=== PATIENT | male | born 1950 | race Caucasian/White ===

== ENCOUNTER → 2018-04-27 11:45 | Outpatient (CLI) | payer MEDICARE, SELFPAY ==
--- NOTE | 2018-04-27 12:15 | ECHOD_ITS ---
Reason For Study: CAD/ASHD Procedure This was a 2D Doppler, Color Flow transthoracic echocardiogram. The exam was of fair technical quality due to body habitus. Exam performed in department. Left Ventricle Normal LV size. Left ventricular systolic function is normal. The estimated ejection fraction is 60 %. Diastolic function is indeterminate. No regional wall motion abnormalities noted. Right Ventricle Normal RV size. Normal systolic function. Atria Normal left atrium. Normal right atrium. No doppler evidence for ASD. Mitral Valve There is no mitral annular calcification. Normal mitral valve. Mild (1+) mitral valve insufficiency. Tricuspid Valve Normal tricuspid valve. Trivial tricuspid valve insufficiency. Aortic Valve Trisinus/trileaflet aortic valve. Mild diffuse aortic valve thickening. Mild focal aortic valve calcification. Aortic sclerosis, no stenosis. Pulmonic Valve The pulmonic valve is not well visualized. Trivial pulmonic valve insufficiency. Great Vessels Normal sized aortic root. Calcified aortic root. Pericardium/Pleural No pericardial effusion. MMode/2D Measurements & Calculations LVIDd: 5.1 cm IVSd: 1.1 cm LVOT diam: 2.0 cm LVIDs: 2.9 cm LVPWd: 1.1 cm LVOT area: 3.3 cm2 FS: 42.4 % Ao root diam: 3.2 cm LAV(MOD-bp): 54.4 ml LVAd ap4: 34.8 cm2 LA dimension: 4.2 cm LAV(MOD-bp) Indexed: 25.1 ml/m2 EDV(MOD-sp4): 123.5 ml LAV(MOD-sp2): 36.3 ml EDV(sp4-el): 123.8 ml LAV(MOD-sp4): 74.3 ml LVAs ap4: 16.3 cm2 ESV(MOD-sp4): 39.6 ml ESV(sp4-el): 37.3 ml EF(MOD-sp4): 67.9 % EF(sp4-el): 69.8 % SV(MOD-sp4): 83.9 ml SV(sp4-el): 86.5 ml LA A4 area: 23.5 cm2 RA A4 area: 20.2 cm2 Time Measurements MV dec time: 0.19 sec Doppler Measurements & Calculations MV E max trip: 103.8 cm/sec Lat Peak E' Trip: 10.0 cm/sec Med Peak E' Trip: 7.6 cm/sec MV A max trip: 88.4 cm/sec E/E' lat: 10.4 E/E' med: 13.7 MV E/A: 1.2 MV V2 max: 112.7 cm/sec MV P1/2t max trip: 111.7 cm/sec Ao V2 max: 187.0 cm/sec MV max P.1 mmHg MV P1/2t: 107.6 msec Ao max P.0 mmHg MV V2 mean: 64.6 cm/sec MV dec slope: 304.0 cm/sec2 Ao V2 mean: 123.2 cm/sec MV mean P.9 mmHg MVA(P1/2t): 2.0 cm2 Ao mean P.1 mmHg MV V2 VTI: 39.5 cm Ao V2 VTI: 41.5 cm MVA(VTI): 2.4 cm2 PEG(I,D): 2.3 cm2 PEG(V,D): 2.3 cm2 LV V1 max: 131.6 cm/sec SV(LVOT): 95.4 ml PA V2 max: 132.9 cm/sec LV V1 max P.9 mmHg LV V1 mean P.7 mmHg LV V1 mean: 89.5 cm/sec LV V1 VTI: 29.2 cm Interpretation Summary Left ventricular systolic function is normal. The estimated ejection fraction is 60 %. Mild (1+) mitral valve insufficiency. Aortic sclerosis, no stenosis. Trivial pulmonic valve insufficiency. Calcified aortic root. Diastolic function is indeterminate. Ordering Physician: Chad Reese Referring Physician: Chad Reese Performed By: Brian Darnell RCS
--- NOTE | 2018-04-27 12:15 | RAD_ITS ---
STUDY: X-RAY CHEST REASON FOR EXAM: Male, 68 years old. Shortness of breath, dyspnea. Pre-heart cath. TECHNIQUE: PA and lateral views of the chest. COMPARISON: Portable AP upright chest x-ray June 24, 2015. FINDINGS: The lungs are clear and deeply expanded. There is no demonstrated pleural abnormality. Normal size heart. Normal mediastinum and darryl. Normal visualized pulmonary arteries. Normal visualized aortic arch and descending thoracic aorta. There are stable multilevel degenerative changes of the visualized thoracic spine. Borderline anterior wedging of the T11 and T12 vertebrae. There is partial ossification of the right coracoclavicular ligament, consistent with old healed injury. There is no demonstrated abnormality of the visualized soft tissue structures of the upper abdomen. RAD/Chest PA and Lateral IMPRESSION: No acute cardiopulmonary disease. Electronically Signed: Rubio Anderson MD at 19:54 EDT , Service support ,
[2018-04-27 12:39] LABS: Absolute Lymphocyte Count 1.39 X10^3/ul (0.83-4.51); Absolute Neutrophil Count 4.8 X10^3/uL (2.0-7.7); Basophil# 0.02 X10^3/uL; Basophil% 0.3 % (0-1); Eosinophil# 0.06 X10^3/uL; Eosinophils% 0.9 % (0-5); Hematocrit 33.8 % (40-54); Hemoglobin 11.4 g/dl (13.0-16.5); Lymphocyte # 1.39 X10^3/ul (4.0); Lymphocyte % 20.8 % (19-41); Mean Corp Hgb Conc 33.7 g/gl (32-36); Mean Corpuscular Hgb 30.6 pg (27.0-32.0); Mean Corpuscular Volume 90.9 fL (80-94); Monocyte# 0.36 X10^3/uL; Monocyte% 5.4 % (0-10); Neutrophil # 4.84 X10^3/uL (2.7-7.7); Neutrophil % 72.3 % (47-70); Platelet Count 246 K/mm3 (150-450); RBC Distribution Width CV 14.7 % (11.6-14.6); RBC Distribution Width SD 47.2 fl (35.1-43.9); Red Blood Count 3.72 M/mm3 (4.6-6.2); White Blood Count 6.7 K/mm3 (4.4-11.0)
[2018-04-27 12:42] LABS: POSITIVE COUNT NO; POSITIVE DIFFERENTIAL NO; POSITIVE MORPHOLOGY NO
[2018-04-27 12:45] LABS: Prothrombin Time (Protime)PT. 13.5 SECONDS (11.7-14.9)
[2018-04-27 12:53] LABS: Anion Gap 9 (5-15); BUN 11 mg/dL (7-18); BUN/Creat Ratio 11.2 RATIO (10-20); Calcium,Total 8.8 mg/dL (8.5-10.1); Chloride 92 mmol/L (98-107); Creatinine, Serum 0.98 mg/dL (0.70-1.30); EST Glomerular Filtration Rate 81 mL/min (>60); Est Glom Filt Rate - Afr Amer 99 mL/min (>60); Glucose 196 mg/dL (74-106); Potassium 3.3 mmol/L (3.5-5.1); Sodium Level 129 mmol/L (136-145)
== END ==
PROVIDERS: Referring Provider Internal Medicine Cardiovascular Disease; Visit Provider Internal Medicine Cardiovascular Disease
DX: I25.10 Atherosclerotic heart disease of native coronary artery without angina pectoris (principal); E78.5 Hyperlipidemia, unspecified; I10 Essential (primary) hypertension
CPT/HCPCS: 36415; 71046; 80048; 85025; 85610; 93306

== ENCOUNTER 2018-05-01 09:42 | Day surgery (SDC) | payer MEDICARE, SELFPAY ==
[2018-04-30 09:06] VITALS: BMI 36.8
[2018-05-01] VITALS (30 sets, daily range): BP systolic 125–186; BP diastolic 64–85; PULSE 59–78; RESP 10–77; TEMP 37.3; O2SAT 98–100; BMI 36.8
--- NOTE | 2018-05-01 13:30 | EKG12_ITS ---
Test Reason : POST STENT Blood Pressure : / mmHG Vent. Rate : 057 BPM Atrial Rate : 057 BPM P-R Int : 176 ms QRS Dur : 100 ms QT Int : 454 ms P-R-T Axes : 045 063 056 degrees QTc Int : 441 ms Sinus bradycardia Confirmed by WINTER SIMMS, CHAD ([id number]), senior editor JAYLYN CHENG ([id number]) on 05/06/2018 2:19:42 PM Referred By: Chad Max Confirmed By:CHAD MAX MD
--- NOTE | 2018-05-01 14:17 | CRPH1.INSTRU ---
General Education CAD and cardiac anatomy and function:: Patient communicates acknowledgment Explanation of diagnoses and procedures:: Patient communicates acknowledgment Sign/Symptoms of OK:: Patient communicates acknowledgment Antiplatelet therapy: Patient communicates acknowledgment Proper use of NTG-SL: Not instructed Emergency procedures and activation of EMS: Patient communicates acknowledgment Compliance of all prescribed medications: Patient communicates acknowledgment Smoking Nicotine/Smoking Response Code:: Patient communicates acknowledgment Dyslipidemia Dyslipidemia Response Code:: Patient communicates acknowledgment Overweight/Obesity Patient Overweight/Obesity Risk Factors Are:: BMI Normal [24-29 & > 65 years old] Recommendations Include:: Weight loss of 5-10%, Reduced calorie diet, Exercise 5-7 times/week Overweight/Obesity:: Patient communicates acknowledgment Hypertension Recommendations Include:: Maintain BP <130/85, BP <130/80 if diabetic, DASH dietary guidelines, Decrease/maintain normal body weight, Moderation of ETOH Hypertension:: Patient communicates acknowledgment Heart Disease Heart Disease Response Code:: Patient communicates acknowledgment Diabetes Patient Diabetes Risk Factors Are:: Elevated blood sugars Recommendations Include:: Maintain fasting blood sugars 70-110 md/dL, Maintain HgbA1c of 6% or less, Monitor blood sugar as prescribed, Diabetic dietary guidelines, Decrease/maintain body weight Diabetes:: Patient communicates acknowledgment Metabolic Syndrome Metabolic Syndrome Response Code:: Patient communicates acknowledgment Sedentary Sedentary Response Code:: Patient communicates acknowledgment Stress Stress Response Code:: Patient communicates acknowledgment
--- NOTE | 2018-05-01 14:19 | CRPHASE1 ---
Patient Data/Charges Supervisor Claims:: Chad Reese Surgeon:: Renu Chaudhry Refer Phase II:: Yes Phase II Referral:: [facility] Risk Factors/Lifestyle Hx Obesity: Yes Height: 1.7 m Weight:: 106.594 kg BMI: 36.8 Family History: Family History (Last Reviewed 04/16/18 @ 13:13 by Lolly Matt) Father COPD (chronic obstructive pulmonary disease) Heart disease Mother CAD (coronary artery disease) Myocardial infarction CVA (cerebral vascular accident) Diabetes Brother CAD (coronary artery disease) Pacemaker Diabetes History of coronary artery bypass surgery Brother Brain aneurysm Phase I Education Given On:: [place], Nutrition, Antiplatelet medication, CHF, Smoking cessation, Diabetes - Type I, Diabetes - Type II Knowledge of Condition:: Yes Medical/Surgical History COPD:: Yes Diabetes Type II:: Yes Hypertension:: Yes Dyslipidemia:: Yes PTCA:: Yes Discharge/Home/Social Eval Discharge Disposition: Home
--- NOTE | 2018-05-01 14:22 | CRPHASE1_ITS ---
Patient Data/Charges Quality Systems Technician:: Chad Reese Surgeon:: Renu Chaudhry Refer Phase II:: Yes Phase II Referral:: [facility] Risk Factors/Lifestyle Hx Obesity: Yes Height: 1.7 m Weight:: 106.594 kg BMI: 36.8 Family History: Family History (Last Reviewed 04/16/18 @ 13:13 by Lolly Matt) Father COPD (chronic obstructive pulmonary disease) Heart disease Mother CAD (coronary artery disease) Myocardial infarction CVA (cerebral vascular accident) Diabetes Brother CAD (coronary artery disease) Pacemaker Diabetes History of coronary artery bypass surgery Brother Brain aneurysm Phase I Education Given On:: [place], Nutrition, Antiplatelet medication, CHF, Smoking cessation, Diabetes - Type I, Diabetes - Type II Knowledge of Condition:: Yes Medical/Surgical History COPD:: Yes Diabetes Type II:: Yes Hypertension:: Yes Dyslipidemia:: Yes PTCA:: Yes Discharge/Home/Social Eval Discharge Disposition: Home
[2018-05-01 14:40] LABS: Base Excess 0 mmol/L (-2 to +2); Bicarbonate 24.6 mmol/L (22-26); Blood Gas Specimen Type ART; PO2 71 mmHG (75-100); SO2 95 % (95-99); Total Carbon Dioxide 26 mmol/L; pH 7.44 (7.35-7.45)
[2018-05-01 14:40] LABS: Blood Gas Specimen Type VEN; VBG BASE EXCESS 1 mmol/L (-1.0-3.5); VBG Bicarbonate 25 mmol/L (22-26); VBG Oxygen Content 27 mmol/L (23-33); VBG PO2 38 mmHg (25-40); VBG SO2 73 % (50-70); VBG pCO2 39.1 mmHg (41-51); VBG pH 7.42 (7.32-7.42)
[2018-05-01 14:40] LABS: Blood Gas Specimen Type VEN; VBG BASE EXCESS 1 mmol/L (-1.0-3.5); VBG Bicarbonate 26 mmol/L (22-26); VBG Oxygen Content 27 mmol/L (23-33); VBG PO2 37 mmHg (25-40); VBG SO2 71 % (50-70); VBG pCO2 41.4 mmHg (41-51); VBG pH 7.41 (7.32-7.42)
[2018-05-01 14:41] LABS: ACT Activated Clotting Time 252 sec (74-137)
[2018-05-01 14:41] LABS: Blood Gas Specimen Type VEN; VBG BASE EXCESS 1 mmol/L (-1.0-3.5); VBG Bicarbonate 26 mmol/L (22-26); VBG Oxygen Content 27 mmol/L (23-33); VBG PO2 38 mmHg (25-40); VBG SO2 72 % (50-70); VBG pCO2 41.4 mmHg (41-51)
[2018-05-01 14:41] LABS: ACT Activated Clotting Time 213 sec (74-137)
[2018-05-01 15:00] LABS: ACT Activated Clotting Time 153 sec (74-137)
[2018-05-01] MEDS: 0.9% Normal Saline 1,000 ML 100 ML IV (15:11)
--- NOTE | 2018-05-01 15:19 | CL.I_ITS ---
Patient Name: ESTEFANY PEPPER Study Date: 05/01/2018 Performing: Renu Albert MD Ht: 67 inches 170 cm : 1950 Wt: 236.2 lbs 107 kg Age: 68 Gender: male BSA: 2.17 PROCEDURE(S) PERFORMED [id number] W OR WO PTCA, SINGLE CORONARY ARTERY [id number], CORONARY OR GRAFT, INITIAL VESSEL CLINICAL PROFILE AND CO-MORBIDITIES Indications: Worsening Angina, Suspected CAD Heart Failure: None Stress/Imaging Stress/Image Study Performed: No Angina Classification Anginal Classification w/in 2 Weeks: CCS III CAD Presentations: Other: Dyspnea, angina equivalent class III Other: Worsening shortness of oleksandr th (angina pectoris equivalent) CONCLUSIONS Post-IVUS showed mild stent malapposition. Post dilated as noted above RECOMMENDATIONS ASA Indefinitley Plavix for at least 12 months Follow up with Dr. Reese DESCRIPTION OF PROCEDURE The patient arrived to the procedure lab. The risks and benefits of the procedure as well as a full d escription of our services here and current unavailability of surgical backup were fully explained to the patient and/or their significant other prior to the catheterization. The Timeout was completed, verifying the correct patient and procedure. The patient's procedural site was prepped and draped in the usual fashion. Local anesthetic was given subcutaneously to right groin region with Lidocaine 2% Using a modified Seldinger technique,arterial access was obtained via the right femoral artery, a 4Fr sheath was insertedVenous access was obtained via the right femoral vein, a 7Fr sheath was inserted. A 7Fr thermal dilution catheter was inserted and right heart pressures were recorded, it was then ad vanced to PA position for cardiac outputs. Thermal dilution cardiac outputs were then recorded. O2 sa turations were then obtained. The Thermal dilution catheter was then removed. Left Coronary Artery se lective angiography was performed in multiple views using a 4 Fr. JL5 catheter. Right Coronary Artery selective angiography was then performed in multiple views using a 4 Fr. JR4 catheter. Simultaneous pressures were then recorded. Left Ventriculography was performed in CHAPA projection using a 4 Fr. Pig tail catheter.The images were reviewed and options discussed. A decision was then made to proceed wit h an Intervention, IVUS or other adjunct procedure. Arterial sheath was exchanged for a 6 Fr Sheath. Angiogram performed pre balloon dilatation. jr 4 cor dis Guide catheter was inserted and engaged into the RCA. bmw Guide wire was advanced to the RCA. nenita rge 3.00 x 8 Balloon catheter was advanced across lesion in the right coronary, proximal. PTCA balloo n inflated at 14 atms for 23 secs. Angiogram performed post balloon dilatation. integrity resolute 3. 5 x 12 Drug Eluting stent was advanced across the lesion in the right coronary, proximal. Drug Elutin g stent was removed intact, failed to cross lesion resolute integrity 3.5 x 12 Drug Eluting stent was advanced across the lesion in the right coronary, proximal. Angiogram performed post stent deploymen t. nc emerge 3.5 x 8 Balloon catheter was inserted post stent. emege 4.00 x 8 Balloon catheter was in serted post stent. Angiogram performed post balloon dilatation. IVUS pullback recording was performed on the prox rca for post PCI assessment. resolute 4.0 x 12 Drug Eluting stent was advanced across t he lesion in the right coronary, proximal. Angiogram performed pre stent deployment. nc emerge 4.00 x 12 Balloon catheter was inserted post stent. Angiogram performed post balloon dilatation. nc emerge 4.5 x 8 Balloon catheter was inserted post stent. Angiogram performed post balloon dilatation. The arterial sheath was sutured in place and capped. The venous sheath was then sutured inplace and cappe d INTERVENTION INFORMATION LESION SITE: RCA (Proximal) Lesion Complexity: High/C Pre Stenosis: 80 % Pre intervention FER flow: 3 PROCEDURE: Drug Eluting Stent with pre and post dilatation, IVUS for post stent evaluation Post Stenosis: 0 % Post intervention FER flow: 3 Lesion Devices: Cordis 6 Fr JR4 100cm Guide Catheter Page .014 [employer] [place] Straight 190cm Kenny Sci EMERGE MR 3.00x08 BALLOON Medtronic Resolute RX CHASIDY 3.5x12 [employer] 6 [place] GuideLiner Kenny Sci NC EMERGE MR 3.50x08 BALLOON Kenny Sci EMERGE MR 4.00x08 BALLOON Medtronic Resolute RX CHASIDY 4.0x12 Kenny Sci NC EMERGE MR 4.00x12 BALLOON Kenny Sci NC EMERGE MR 4.50x08 BALLOON COMPLICATIONS No Complications PROCEDURE MEDICATIONS Versed 1 mg IV Fentanyl 50 mcg IV Fentanyl 50 mcg IV Fentanyl 25 mcg IV Oxygen: 2 L/min via nasal cannula Heparin 8000 unit(s) IV 05/01/2018 11:54:25 Heparin 500 unit(s) IV 05/01/2018 12:08:14 Heparin 1000 unit(s) IV 05/01/2018 12:41:31 Heparin 1000 unit(s) IV 05/01/2018 12:54:33 Nitro 50 mcg IC 05/01/2018 12:31:31 Plavix 300 mg PO 05/01/2018 13:18:56 IV Bolus: .9 NaCl 500 ml total 05/01/2018 12:16:40 SUMMARY OF HEMODYNAMIC DATA Time AIR REST ECG 10:03:44 RA 13 (10) SV 10:58:52 RV 45/9, 15 10:59:15 PA 41/25 (35) PA 11:00:20 PW (18) PV 11:01:59 LV 154/-2, 24 11:06:12 PW (17) 11:06:12 LV 154/0, 23 11:06:19 PW (19) 11:06:19 LV 149/1, 24 11:08:15 PW (17) 11:08:15 LVp 156/-5, 24 11:08:30 AOp 150/72 (105) 11:08:35 PA 43/12 (31) 11:09:00 RV 45/6, 12 11:09:15 RA 12 (10) 11:09:25 AO 135/65 (98) SA 11:11:37 RM AIR REST 13:49:19 Type SV CO (l/m) CI (l/m/ HR Time AIR REST Thermal 86.00 5.42 2.50 63 10:03:44 Terri 134.30 8.46 3.90 63 10:03:44 Label % O2 Pres/Loc Time AIR REST IVC 73 SV 11:12:46 SVC 71 11:12:59 PA 72 PA 11:13:06 AO 95 PV 11:13:14 Signed By Renu Albert MD On 05/04/2018 07:53:41 Renu Albert MD
[2018-05-01] MEDS: amLODIPine 5 MG Tablet PO (17:06)
[2018-05-01] MEDS: Atorvastatin Calcium 40 MG Tablet PO (21:17)
[2018-05-01] MEDS: Metoprolol Tartrate 25 MG Tablet PO (21:17)
[2018-05-02] VITALS (15 sets, daily range): BP systolic 129–159; BP diastolic 35–78; PULSE 56–92; RESP 7–16; TEMP 36.4–37; O2SAT 94–100
[2018-05-02] MEDS: 0.9% NaCl Peripheral Flush Adult/Peds IV (03:52)
[2018-05-02 04:06] LABS: Hematocrit 29.8 % (40-54); Hemoglobin 9.8 g/dl (13.0-16.5); Mean Corp Hgb Conc 32.9 g/gl (32-36); Mean Corpuscular Volume 91.1 fL (80-94); Mean Platelet Vol. 8.2 fl (6.2-12.0); Platelet Count 176 K/mm3 (150-450); RBC Distribution Width CV 14.9 % (11.6-14.6); RBC Distribution Width SD 49.7 fl (35.1-43.9); Red Blood Count 3.27 M/mm3 (4.6-6.2); Scan Indicated on CBC? Y/N NO; White Blood Count 6.4 K/mm3 (4.4-11.0)
[2018-05-02 04:15] LABS: Anion Gap 9 (5-15); BUN 11 mg/dL (7-18); BUN/Creat Ratio 13.2 RATIO (10-20); Calcium,Total 8.3 mg/dL (8.5-10.1); Chloride 101 mmol/L (98-107); Creatinine, Serum 0.84 mg/dL (0.70-1.30); EST Glomerular Filtration Rate 98 mL/min (>60); Est Glom Filt Rate - Afr Amer 118 mL/min (>60); Estimated Creatinine Clearance 80.88 ml/min; Glucose 145 mg/dL (74-106); Potassium 3.9 mmol/L (3.5-5.1); Sodium Level 137 mmol/L (136-145)
[2018-05-02] MEDS: Aspirin E.C. 81 MG Tablet PO (09:21)
[2018-05-02] MEDS: NIFEdipine 90 MG Tablet PO (09:22)
[2018-05-02] MEDS: Clopidogrel Bisulfate 75 MG Tablet PO (09:22)
[2018-05-02] MEDS: Tamsulosin HCl 0.4 MG Capsule PO (09:22)
[2018-05-02] MEDS: hydroCHLOROthiazide 25 MG Tablet PO (09:22)
[2018-05-02] MEDS: Metoprolol Tartrate 25 MG Tablet PO (09:22)
--- NOTE | 2018-05-02 10:00 | EKG12_ITS ---
Test Reason : MORNING EKG Blood Pressure : / mmHG Vent. Rate : 059 BPM Atrial Rate : 059 BPM P-R Int : 160 ms QRS Dur : 094 ms QT Int : 438 ms P-R-T Axes : 072 068 063 degrees QTc Int : 433 ms Sinus bradycardia Otherwise normal ECG Confirmed by WINTER SIMMS, CHAD ([id number]), non linear editor JAYLYN CHENG ([id number]) on 05/06/2018 2:19:16 PM Referred By: Chad Max Confirmed By:CHAD MAX MD
--- NOTE | 2018-05-02 10:41 | DCINST_ITS ---
- Discharge Diagnoses Current Active Problems: CAD status post RCA PCI/CHASIDY Reason(s) for Visit for Discharge Instructions: Shortness of breath/dyspnea: Angina pectoris equivalent. Diagnostic cardiac catheterization You will use the following diet at home:: Calorie/Carbohydrate Controlled (specify 1200, 1400, etc), Cardiac Your food should be the consistency of: Regular Discharge Activity: May Not Drive - Until Friday, May 04, 2018, May Shower, May Take a Tub Bath - May Take a Tub Bath in 7 Days May shower in (days): 1 May resume sexual activity in: 2 weeks Weight Bearing Status: Weight bearing as tolerated - Beginning Friday, May 04, 2018 Call your doctor if your incision/area has: Continuous Slow Oozing, Sudden Increased Bleeding, Increased Pain/ Swelling, Increased Redness, Swelling at the incision site Call your doctor if you observe: Fever of 101 or Higher, Shortness of breath, Dizziness, Fainting spells, Swelling in the ankles, Chest pain, Increased palpitations (irregular heartbeat), Calf discomfort, Uncontrolled pain Change Dressing in (Days):: 1 Remove Dressing in (days):: 1 Cleanse incision/area with: Soap & Water Additional Instructions: HOLD Metformin until Friday, May 04, 2018: then resume. Blood test on May 04, 2018: to be arranged by the [facility] office Allergies/Adverse Reactions: Allergies doxycycline Allergy (Severe, Verified 04/16/18 13:07) Rash empagliflozin [From Jardiance] Adverse Reaction (Severe, Verified 04/16/18 13:07) yeast infection Medications to take at Discharge Albuterol IH (ProAir) [Proair Hfa] 2 puff INHALATION Q4H PRN PRN 06/24/15 Aspirin [Adult Low Dose Aspirin EC] 81 mg PO DAILY 06/24/15 Atorvastatin Calcium [Lipitor] 40 mg PO QHS 06/24/15 Budesonide/Formoterol 160/4.5 [Symbicort 160/4.5 Mcg Inhaler (SP)] 2 puff INHALATION BID 06/24/15 Hydrochlorothiazide [Hctz] 25 mg PO DAILY 06/24/15 Loratadine [Claritin] 10 mg PO DAILY 06/24/15 Metformin HCl [Glucophage] 1,000 mg PO BIDCM 06/24/15 Metoprolol Tartrate [Lopressor (beta jd)] 25 mg PO BID 06/24/15 Montelukast Sodium [Singulair] 10 mg PO DAILY 06/24/15 Tolnaftate [Tinactin] 1 applic TP DAILY 06/24/15 Valsartan [Diovan] 320 mg PO DAILY 06/24/15 albuterol sulfate 2.5 mg/3 mL (0.083 %) solution for nebulization 1.25 mg INHALATION Q4H PRN 04/14/18 cholecalciferol (vitamin D3) 2,000 unit tablet 2,000 unit PO DAILY 04/14/18 clotrimazole 1 % topical cream 1 applic TOPICAL BID PRN 04/14/18 fluticasone 50 mcg/actuation nasal spray,suspension 1 spray INTRANASAL DAILY 04/14/18 gabapentin 100 mg capsule 100 mg PO TID cap 04/14/18 glipizide 5 mg tablet 2.5 mg PO BID tab 04/14/18 multivitamin tablet 1 tab PO DAILY 04/14/18 naproxen 500 mg tablet 500 mg PO BID PRN 04/14/18 nifedipine ER 90 mg tablet,extended release 90 mg PO DAILY 04/14/18 omega-3 fatty acids 1,000 mg capsule 3,000 mg PO TID cap 04/14/18 omeprazole 20 mg tablet,delayed release 20 mg PO DAILY 04/14/18 roflumilast 500 mcg tablet 500 mcg PO DAILY 04/14/18 tamsulosin 0.4 mg capsule 0.4 mg PO DAILY 04/14/18 tiotropium bromide 2.5 mcg/actuation mist for inhalation 2 puff INHALATION DAILY 04/14/18 vitamin B complex tablet 1 tab PO .3XWEEK tab 04/14/18 clopidogrel 75 mg tablet 75 mg PO DAILY #30 tab 04/16/18 potassium chloride ER 20 mEq tablet,extended release 40 meq PO DAILY #60 tab 04/28/18 Aspirin E.C. [Ecotrin] 81 mg PO DAILY@0800 tablet 05/02/18 Clopidogrel Bisulfate [Plavix] 75 mg PO DAILY tablet 05/02/18 Hydrochlorothiazide [Hctz] 25 mg PO DAILY tablet 05/02/18 Potassium Chloride [K-Dur] 40 meq PO DAILYCM tablet 05/02/18 Orders to be completed after discharge: Basic Metabolic Profile (BMP) Time Frame: 2 Days, Location: Laboratory [facility] Physician[facility] [Primary [facility] Provider] - Test Results: Test results from this visit will be discussed in further detail at your follow- up appointment, if applicable. Please Follow Up With: Chad Reese MD When: [facility] to arrange outpatient follow up visit Proposed Discharge Date: 05/02/18
--- NOTE | 2018-05-02 10:45 | PCM.DC.SUM ---
Discharge Date and Diagnosis - Problem List Patient Problems: Active and Suspected Problems (Last Reviewed 04/16/18 @ 13:13 by Lolly Matt) S/P PTCA (percutaneous transluminal coronary angioplasty) (Acute) Date of Admission: 05/01/18 Date of Discharge: 05/02/18 - Primary Discharge Diagnosis Shortness of breath/dyspnea: Angina pectoris equivalent Cardiac catheterization: CAD status post RCA PTCA/CHASIDY - Secondary Discharge Diagnosis Chronic Problems (Last Reviewed 04/16/18 @ 13:13 by Lolly Matt) ELISHA (obstructive sleep apnea) (Chronic) Atherosclerotic heart disease of [place] coronary artery without angina pectoris (Chronic) Mild Hyperlipemia (Chronic) Type 2 diabetes mellitus (Chronic) Essential hypertension (Chronic) COPD (chronic obstructive pulmonary disease) (Chronic) Hospital Course and Treatment Operations: None Procedures: Cardiac catheterization, - - PTCA/stent/CHASIDY Summary of Care Provided: The patient is a 68 year old white male with a past history of hyperlipidemia, hypertension, diabetes mellitus, COPD, who was evaluated for concerns of shortness of breath/dyspnea with concerns of underlying cardiopulmonary disease including an angina pectoris equivalent. He underwent diagnostic cardiac catheterization on 05/01/2018. He was noted to have elevated intrapulmonary/right heart pressures, preserved LV wall motion and systolic function, and angiographically significant appearing coronary artery disease of the proximal RCA. He subsequently underwent RCA PTCA/stent/CHASIDY under the direction of Dr. Albert of interventional cardiology of [facility] area that he recuperated in the ICU. He appeared to remain symptomatically and hemodynamically stable without obvious adverse postprocedure events. On 05/02/2018 the patient appeared to be stable for discharge home for continued outpatient cardiovascular follow-up and outpatient cardiovascular rehabilitation. 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 [] Patient Problems: Active and Suspected Problems (Last Reviewed 04/16/18 @ 13:13 by Lolly Matt) S/P PTCA (percutaneous transluminal coronary angioplasty) (Acute) Subjective: The patient appears to be resting comfortably with no acute symptoms. - Physical Exam General: Alert, Oriented x3, Cooperative, No apparent distress HEENT: Atraumatic, PERRLA, EOMI, Normocephalic Oral: Moist Mucosa Neck: Supple, No JVD Lungs: Clear to auscultation Cardiovascular: Regular rate, Regular Rhythm, - - Femoral pulses: 2+/4+: No bruits: No hematoma Abdomen: Bowel Sounds Present, Soft, Non Tender Extremities: No clubbing, No cyanosis, - - Right inguinal area: Cardiac catheterization site: Slight ecchymoses; no obvious hematoma my: Trace bilateral ankle edema Skin: No rashes Neurological: - - No focal motor/sensory deficits Psych/Mental Status: Normal Affect, Appropriate Vital Signs Temp Pulse Resp BP Pulse Ox 98.5 F 65 12 141/71 H 98 05/02/18 09:00 05/02/18 10:00 05/02/18 10:00 05/02/18 10:00 05/02/18 10:00 Oxygen Flow Rate (L/min) 2 Oxygen Delivery Method Room Air Weight: 232 lb 9.403 oz Body Mass Index (BMI) 36.8 Intake and Output for Last 24 Hours 04/30/18 05/01/18 05/02/18 23:59 23:59 23:59 Intake Total 2362 / 2362 0 / 0 Output Total 3120 / 3120 0 / 0 Balance -758 / -758 0 / 0 Laboratory Tests Past 24 Hrs 05/01/18 05/01/18 05/01/18 10:47 11:00 11:03 WBC RBC Hgb Hct MCV MCH MCHC RDW RDW Differential Plt Count MPV Activated Clotting Time Specimen Type ART JOSE JOSE pH 7.44 Bicarbonate Actual 24.6 POC Total CO2 26 Base Excess 0 O2 Saturation 95 ABG pCO2 36.0 ABG pO2 71 L VBG pH 7.42 7.41 VBG pO2 38 37 VBG O2 Sat (Calc) 73 H 71 H VBG O2 Content 27 27 VBG Base Excess 1 1 POC Mix VBG pCO2 Pt Tmp 39.1 L 41.4 Sodium Potassium Chloride Carbon Dioxide Anion Gap BUN Creatinine Estim Creat Clear Calc Est GFR (MDRD) Af Amer Est GFR (MDRD) Non-Af BUN/Creatinine Ratio Glucose Calcium 05/01/18 05/01/18 05/01/18 11:06 12:03 13:15 WBC RBC Hgb Hct MCV MCH MCHC RDW RDW Differential Plt Count MPV Activated Clotting Time 252 H 213 H Specimen Type JOSE pH Bicarbonate Actual POC Total CO2 Base Excess O2 Saturation ABG pCO2 ABG pO2 VBG pH 7.40 VBG pO2 38 VBG O2 Sat (Calc) 72 H VBG O2 Content 27 VBG Base Excess 1 POC Mix VBG pCO2 Pt Tmp 41.4 Sodium Potassium Chloride Carbon Dioxide Anion Gap BUN Creatinine Estim Creat Clear Calc Est GFR (MDRD) Af Amer Est GFR (MDRD) Non-Af BUN/Creatinine Ratio Glucose Calcium 05/01/18 05/02/18 05/02/18 14:51 03:55 03:55 WBC 6.4 RBC 3.27 L Hgb 9.8 L Hct 29.8 L MCV 91.1 MCH 30.0 MCHC 32.9 RDW 14.9 H RDW Differential 49.7 H Plt Count 176 MPV 8.2 Activated Clotting Time 153 H Specimen Type pH Bicarbonate Actual POC Total CO2 Base Excess O2 Saturation ABG pCO2 ABG pO2 VBG pH VBG pO2 VBG O2 Sat (Calc) VBG O2 Content VBG Base Excess POC Mix VBG pCO2 Pt Tmp Sodium 137 Potassium 3.9 Chloride 101 Carbon Dioxide 27.0 Anion Gap 9 BUN 11 Creatinine 0.84 Estim Creat Clear Calc 80.88 Est GFR (MDRD) Af Amer 118 Est GFR (MDRD) Non-Af 98 BUN/Creatinine Ratio 13.2 Glucose 145 H Calcium 8.3 L Discharge Diet: Low fat/ Low Cholesterol, 1800 Calorie Control Diet Discharge Activity: May Not Drive - Until Friday, May 04, 2018, November Shower, May Take a Tub Bath - May Take a Tub Bath in 7 Days May shower in (days): 1 May resume sexual activity in: 2 weeks Weight Bearing Status: Weight bearing as tolerated - Beginning Friday, May 04, 2018 Call your doctor if your incision/area has: Continuous Slow Oozing, Sudden Increased Bleeding, Increased Pain/ Swelling, Increased Redness, Swelling at the incision site Call your doctor if you observe: Fever of 101 or Higher, Shortness of breath, Dizziness, Fainting spells, Swelling in the ankles, Chest pain, Increased palpitations (irregular heartbeat), Calf discomfort, Uncontrolled pain Change Dressing in (Days):: 1 Remove Dressing in (days):: 1 Cleanse incision/area with: Soap & Water Home Medications: Medications to take at Discharge Albuterol IH (ProAir) [Proair Hfa] 2 puff INHALATION Q4H PRN PRN 06/24/15 Aspirin [Adult Low Dose Aspirin EC] 81 mg PO DAILY 06/24/15 Atorvastatin Calcium [Lipitor] 40 mg PO QHS 06/24/15 Budesonide/Formoterol 160/4.5 [Symbicort 160/4.5 Mcg Inhaler (SP)] 2 puff INHALATION BID 06/24/15 Hydrochlorothiazide [Hctz] 25 mg PO DAILY 06/24/15 Loratadine [Claritin] 10 mg PO DAILY 06/24/15 Metformin HCl [Glucophage] 1,000 mg PO BIDCM 06/24/15 Metoprolol Tartrate [Lopressor (beta jd)] 25 mg PO BID 06/24/15 Montelukast Sodium [Singulair] 10 mg PO DAILY 06/24/15 Tolnaftate [Tinactin] 1 applic TP DAILY 06/24/15 Valsartan [Diovan] 320 mg PO DAILY 06/24/15 albuterol sulfate 2.5 mg/3 mL (0.083 %) solution for nebulization 1.25 mg INHALATION Q4H PRN 04/14/18 cholecalciferol (vitamin D3) 2,000 unit tablet 2,000 unit PO DAILY 04/14/18 clotrimazole 1 % topical cream 1 applic TOPICAL BID PRN 04/14/18 fluticasone 50 mcg/actuation nasal spray,suspension 1 spray INTRANASAL DAILY 04/14/18 gabapentin 100 mg capsule 100 mg PO TID cap 04/14/18 glipizide 5 mg tablet 2.5 mg PO BID tab 04/14/18 multivitamin tablet 1 tab PO DAILY 04/14/18 naproxen 500 mg tablet 500 mg PO BID PRN 04/14/18 nifedipine ER 90 mg tablet,extended release 90 mg PO DAILY 04/14/18 omega-3 fatty acids 1,000 mg capsule 3,000 mg PO TID cap 04/14/18 omeprazole 20 mg tablet,delayed release 20 mg PO DAILY 04/14/18 roflumilast 500 mcg tablet 500 mcg PO DAILY 04/14/18 tamsulosin 0.4 mg capsule 0.4 mg PO DAILY 04/14/18 tiotropium bromide 2.5 mcg/actuation mist for inhalation 2 puff INHALATION DAILY 04/14/18 vitamin B complex tablet 1 tab PO .3XWEEK tab 04/14/18 clopidogrel 75 mg tablet 75 mg PO DAILY #30 tab 04/16/18 potassium chloride ER 20 mEq tablet,extended release 40 meq PO DAILY #60 tab 04/28/18 Aspirin E.C. [Ecotrin] 81 mg PO DAILY@0800 tablet 05/02/18 Clopidogrel Bisulfate [Plavix] 75 mg PO DAILY tablet 05/02/18 Hydrochlorothiazide [Hctz] 25 mg PO DAILY tablet 05/02/18 Potassium Chloride [K-Dur] 40 meq PO DAILYCM tablet 05/02/18 Other Amb Orders: Basic Metabolic Profile (BMP) Time Frame: 2 Days, Location: Laboratory [facility] Phys[facility] [Primary Care Provider] - Please Follow Up With: Chad Reese MD When: [facility] to arrange outpatient follow up visit Disposition: Home Minutes spent on discharge:: 30 Patient Condition:: Stable Medical Necessity - Tobacco Use Smoking Status: Former smoker Meaningful Use Info Meaningful Use Diagnoses (Choose all that apply): None applicable
--- NOTE | 2018-05-04 07:53 | CL.D_ITS ---
Patient Name: ESTEFANY PEPPER Study Date: 05/01/2018 Performing: Chad Reese MD Ht: 67 inches 170 cm : 1950 Wt: 236.2 lbs 107 kg Age: 68 Gender: male BSA: 2.17 PROCEDURE(S) PERFORMED HF60-YQM/LHC/COR/LV TB90-DOW W OR WO PTCA, SINGLE CORONARY ARTERY [id number], CORONARY OR GRAFT, INITIAL VESSEL CLINICAL PROFILE AND INDICATIONS Indications: Worsening Angina, Suspected CAD Heart Failure: None Stress/Imaging Stress/Image Study Performed: No Angina Classification Anginal Classification w/in 2 Weeks: CCS III CAD Presentations: Other: Dyspnea, angina equivalent class III Other: Worsening shortness of oleksandr th (angina pectoris equivalent) CONCLUSIONS Right heart pressures - moderately elevated The patient has pulmonary hypertension which is moderate. Intracardiac shunting: None Elevated Left Ventricular End Diastolic Pressure Normal LV size, wall motion,and systolic function LVEF: by LV gram 65 % RECOMMENDATIONS Risk factor modification Medical therapy Referred for immediate PCI DESCRIPTION OF PROCEDURE The patient arrived to the procedure lab. The risks and benefits of the procedure as well as a full d escription of our services here and current unavailability of surgical backup were fully explained to the patient and/or their significant other prior to the catheterization. The Timeout was completed, verifying the correct patient and procedure. The patient's procedural site was prepped and draped in the usual fashion. Local anesthetic was given subcutaneously to right groin region with Lidocaine 2%. Using a modified Seldinger technique, arterial access was obtained via the right femoral artery, a 4 Fr sheath was inserted Venous access was obtained via the right femoral vein, a 7Fr sheath was insert ed. A 7Fr thermal dilution catheter was inserted and right heart pressures were recorded, it was then advanced to PA position for cardiac outputs. Thermal dilution cardiac outputs were then recorded. O2 saturations were then obtained. The Thermal dilution catheter was then removed. Left Coronary Artery selective angiography was performed in multiple views using a 4 Fr. JL5 catheter. Right Coronary Art [place] selective angiography was then performed in multiple views using a 4 Fr. JR4 catheter. Simultaneo us pressures were then recorded. Left Ventriculography was performed in CHAPA projection using a 4 Fr. Pigtail catheter.The arterial sheath was sutured in place and capped. The venous sheath was then sutu red inplace and capped CORONARY ANGIOGRAPHY DOMINANCE: Right Dominant LEFT HEART ASSESSMENT Left Ventricular Ejection Fraction: by LV Gram 65 % Normal LV wall motion Elevated Left Ventricular End Diastolic Pressure LVEDP: 23 mmHg RIGHT HEART ASSESSMENT Thermal CO: 5.42 Thermal CI: 2.5 Terri CO: 8.46 Terri CI: 3.9 PW: 18 PA: 41/25 35 RV: 45/9 15 RA: 25/06 10 PVR: 251 SVR: 1299 Right Heart pressures - elevated Pulmonary Hypertension Moderate Intracardiac shunting: None LEFT MAIN: Mild calcification LEFT ANTERIOR DECENDING ARTERY: PROX LAD: Mild calcification, Mild luminal irregularities CIRCUMFLEX ARTERY: Angiographically normal RAMUS: Angiographically normal RIGHT CORONARY ARTERY: Mild calcification Mild luminal irregularities PROX RCA: Eccentric: 85 % Stenosis MID RCA: Eccentric: 25 % Stenosis VALVE FINDINGS: Normal Aortic Valve function Normal Mitral Valve function AORTIC ROOT: Angiographically normal COMPLICATIONS No Complications PROCEDURE MEDICATIONS Versed 1 mg IV Fentanyl 50 mcg IV Fentanyl 50 mcg IV Fentanyl 25 mcg IV Oxygen: 2 L/min via nasal cannula Heparin 8000 unit(s) IV 05/01/2018 11:54:25 Heparin 500 unit(s) IV 05/01/2018 12:08:14 Heparin 1000 unit(s) IV 05/01/2018 12:41:31 Heparin 1000 unit(s) IV 05/01/2018 12:54:33 Nitro 50 mcg IC 05/01/2018 12:31:31 Plavix 300 mg PO 05/01/2018 13:18:56 IV Bolus: .9 NaCl 500 ml total 05/01/2018 12:16:40 SUMMARY OF HEMODYNAMIC DATA Time AIR REST ECG 10:03:44 RA 13 (10) SV 10:58:52 RV 45/9, 15 10:59:15 PA 41/25 (35) PA 11:00:20 PW (18) PV 11:01:59 LV 154/-2, 24 11:06:12 PW (17) 11:06:12 LV 154/0, 23 11:06:19 PW (19) 11:06:19 LV 149/1, 24 11:08:15 PW (17) 11:08:15 LVp 156/-5, 24 11:08:30 AOp 150/72 (105) 11:08:35 PA 43/12 (31) 11:09:00 RV 45/6, 12 11:09:15 RA 12/12 (10) 11:09:25 AO 135/65 (98) SA 11:11:37 RM AIR REST 13:49:19 Type SV CO (l/m) CI (l/m/ HR Time AIR REST Thermal 86.00 5.42 2.50 63 10:03:44 Terri 134.30 8.46 3.90 63 10:03:44 Label % O2 Pres/Loc Time AIR REST IVC 73 SV 11:12:46 SVC 71 11:12:59 PA 72 PA 11:13:06 AO 95 PV 11:13:14 Signed By Chad Reese MD On 05/04/2018 07:52:37 Signed By Chad Reese MD On 05/01/2018 15:18:48 Chad Reese MD
== END 2018-05-02 10:44 | disposition home or self-care (01) ==
LOC: CLSP 09:43 → ICU 12:31
PROVIDERS: Internal Medicine Cardiovascular Disease; Referring Provider Internal Medicine Cardiovascular Disease; Visit Provider Internal Medicine Cardiovascular Disease
DX: I25.119 Atherosclerotic heart disease of native coronary artery with unspecified angina pectoris (principal); I27.20 Pulmonary hypertension, unspecified; R06.02 Shortness of breath; R06.09 Other forms of dyspnea; G47.33 Obstructive sleep apnea (adult) (pediatric); E78.5 Hyperlipidemia, unspecified; E11.9 Type 2 diabetes mellitus without complications; I10 Essential (primary) hypertension; J44.9 Chronic obstructive pulmonary disease, unspecified; Z87.891 Personal history of nicotine dependence; E66.3 Overweight; Z68.36 Body mass index [BMI] 36.0-36.9, adult
CPT/HCPCS: 80048; 82803; 85027; 85347; 92928; 92978; 93005; 93460; 99152; 99153; J7030; J7040; Q9967; A4216; C1725; C1751; C1753; C1769; C1874; C1887; C1894; C9600

== ENCOUNTER → 2018-05-05 10:12 | Outpatient (CLI) | payer MEDICARE, SELFPAY ==
[2018-05-01 14:21] VITALS: BMI 36.8
[2018-05-05 11:21] LABS: Anion Gap 10 (5-15); BUN 14 mg/dL (7-18); BUN/Creat Ratio 13.1 RATIO (10-20); Calcium,Total 8.5 mg/dL (8.5-10.1); Chloride 91 mmol/L (98-107); Creatinine, Serum 1.07 mg/dL (0.70-1.30); EST Glomerular Filtration Rate 73 mL/min (>60); Est Glom Filt Rate - Afr Amer 89 mL/min (>60); Glucose 176 mg/dL (74-106); Potassium 4.2 mmol/L (3.5-5.1); Sodium Level 127 mmol/L (136-145)
== END ==
PROVIDERS: Referring Provider Internal Medicine Cardiovascular Disease; Visit Provider Internal Medicine Cardiovascular Disease
DX: R73.9 Hyperglycemia, unspecified (principal)
CPT/HCPCS: 36415; 80048

== ENCOUNTER 2018-07-22 12:05 | Observation (INO) | payer MEDICARE, SELFPAY ==
[2018-05-01 14:21] VITALS: BMI 36.8
[2018-07-22] VITALS (10 sets, daily range): BP systolic 152–187; BP diastolic 79–91; PULSE 61–111; RESP 13–18; TEMP 36.4–36.7; O2SAT 95–99; BMI 36.8; BMI 37.9
--- NOTE | 2018-07-22 12:12 | EKG12_ITS ---
Test Reason : REPEAT Blood Pressure : / mmHG Vent. Rate : 076 BPM Atrial Rate : 076 BPM P-R Int : 154 ms QRS Dur : 092 ms QT Int : 408 ms P-R-T Axes : 072 066 049 degrees QTc Int : 459 ms Normal sinus rhythm with sinus arrhythmia Normal ECG When compared with ECG of 24-JUL-2018 18:32, MANUAL COMPARISON REQUIRED, DATA IS UNCONFIRMED Confirmed by JAYY SIMMS, ALONZO ([id number]), state editor JAYLYN CHENG ([id number]) on 07/28/2018 5:35:11 PM Referred By: Yong Olivo Confirmed By:ALONZO HOPE MD
--- NOTE | 2018-07-22 12:27 | RAD_ITS ---
STUDY: X-RAY CHEST REASON FOR EXAM: Male, 68 years old. Substernal chest pain TECHNIQUE: Single AP portable view of the chest. COMPARISON: 04/27/2018 FINDINGS: EKG leads overlie the chest The lungs are clear and expanded. There is no demonstrated pleural abnormality. Normal size heart. Normal mediastinum and darryl. Normal visualized pulmonary arteries. Normal visualized aortic arch and descending thoracic aorta. Normal visualized thoracic spine. Normal visualized ribs, clavicles, and shoulders. There is no demonstrated abnormality of the visualized soft tissue structures of the upper abdomen. RAD/Chest 1 View (Portable) IMPRESSION: Normal x-ray examination of the chest. Electronically Signed: Rubio Levy MD at 12:46 EST , Service support ,
[2018-07-22 12:29] LABS: Absolute Lymphocyte Count 1.25 X10^3/ul (0.83-4.51); Absolute Neutrophil Count 5.1 X10^3/uL (2.0-7.7); Basophil# 0.02 X10^3/uL; Basophil% 0.3 % (0-1); Eosinophil# 0.05 X10^3/uL; Eosinophils% 0.7 % (0-5); Hematocrit 27.1 % (40-54); Lymphocyte # 1.25 X10^3/ul (4.0); Lymphocyte % 18.7 % (19-41); Mean Corp Hgb Conc 33.2 g/gl (32-36); Mean Corpuscular Hgb 28.5 pg (27.0-32.0); Mean Corpuscular Volume 85.8 fL (80-94); Mean Platelet Vol. 8.5 fl (6.2-12.0); Monocyte# 0.27 X10^3/uL; Neutrophil # 5.07 X10^3/uL (2.7-7.7); Neutrophil % 76.2 % (47-70); Platelet Count 172 K/mm3 (150-450); RBC Distribution Width CV 14.2 % (11.6-14.6); RBC Distribution Width SD 44.7 fl (35.1-43.9); Red Blood Count 3.16 M/mm3 (4.6-6.2); White Blood Count 6.7 K/mm3 (4.4-11.0)
[2018-07-22 12:30] LABS: POSITIVE COUNT NO; POSITIVE DIFFERENTIAL NO; POSITIVE MORPHOLOGY NO
--- NOTE | 2018-07-22 12:30 | ED.VISSUMM ---
- ER Visit Summary Date of Service: 07/22/18 Chief Complaint: Exertional chest pain History of Present Illness: The patient is a 68 M history of CAD with 2 cardiac stents placed here at [facility] in April. Also noncemented diabetes, COPD and pulmonary hypertension. Patient states that over the last several days he has had exertional chest pain with dyspnea. Before his cardiac stents he was just having exertional dyspnea. He is on Plavix and aspirin. He is never had a DVT or PE. He denies any calf pain or leg swelling. No hemoptysis. Patient states that the pain is across his chest. Currently states he is pain-free. Physical Examination: Older male no acute distress. Vital signs are stable and afebrile. Pulse ox currently is 9 9% on oxygen. No hypoxia. No distress. HEENT exam unremarkable. Neck nontender. Lungs clear to auscultation bilaterally. Heart regular rate and rhythm rate about 60 no murmur. Chest wall nontender. No ecchymosis or bruising. Abdomen is soft and nontender. Normal bowel sounds no peritoneal signs. Patient is moving all 4 extremities. Calves are nontender with no edema or cords. Dorsi plantar flexion intact. Equal symmetrical radial pulses. Neurologically is awake and alert with no focal motor deficits. Test Results: Chest x-ray chronic changes no acute process normal cardiac silhouette mediastinum. EKG sinus rhythm rate of 64 with no signs of ischemia. CBC shows a chronic anemia with a hemoglobin of 9 previously was 9.8. Chemistries sodium 127 he is previously been hyponatremic. Normal BUN and creatinine and gap. Troponin is normal. Emergency Department Course and Treatment: Patient will undergo cardiac workup. I am concerned with his history of exertional chest pain and recent cardiac stents. I do feel he will need to be admitted. Treatment Plan: P exam patient is doing well at 1300. Given his symptoms of exertional chest pain with cardiac stents I do feel he needs admitted for further evaluation. Hospitalist is on page Disposition: Admission Impression: Exertional chest pain etiology History of coronary artery disease with 2 cardiac stents. Anticoagulated on Plavix and aspirin. History of dbr-bmcguru-sduletupy diabetes, hypertension, COPD Chronic anemia Hyponatremia This note was generated with [employer] dictation software. It may contain incorrect words, spelling, and punctuation that were not noted in review of the chart prior to signing ED Disposition - Plan for ED Patient: Chief Complaint: Chest Pain Referrals: [facility] [Primary Care Provider] -
--- NOTE | 2018-07-22 12:33 | ED.DCSUM_ITS ---
- ER Visit Summary Date of Service: 07/22/18 Chief Complaint: Exertional chest pain History of Present Illness: The patient is a 68 M history of CAD with 2 cardiac stents placed here at [facility] in April. Also noncemented diabetes, COPD and pulmonary hypertension. Patient states that over the last several days he has had exertional chest pain with dyspnea. Before his cardiac stents he was just having exertional dyspnea. He is on Plavix and aspirin. He is never had a DVT or PE. He denies any calf pain or leg swelling. No hemoptysis. Patient states that the pain is across his chest. Currently states he is pain-free. Physical Examination: Older male no acute distress. Vital signs are stable and afebrile. Pulse ox currently is 9 9% on oxygen. No hypoxia. No distress. HEENT exam unremarkable. Neck nontender. Lungs clear to auscultation bilaterally. Heart regular rate and rhythm rate about 60 no murmur. Chest wall nontender. No ecchymosis or bruising. Abdomen is soft and nontender. Normal bowel sounds no peritoneal signs. Patient is moving all 4 extremities. Calves are nontender with no edema or cords. Dorsi plantar flexion intact. Equal symmetrical radial pulses. Neurologically is awake and alert with no focal motor deficits. Test Results: Chest x-ray chronic changes no acute process normal cardiac silhouette mediastinum. EKG sinus rhythm rate of 64 with no signs of ischemia. CBC shows a chronic anemia with a hemoglobin of 9 previously was 9.8. Chemistries sodium 127 he is previously been hyponatremic. Normal BUN and creatinine and gap. Troponin is normal. Emergency Department Course and Treatment: Patient will undergo cardiac workup. I am concerned with his history of exertional chest pain and recent cardiac stents. I do feel he will need to be admitted. Treatment Plan: P exam patient is doing well at 1300. Given his symptoms of exertional chest pain with cardiac stents I do feel he needs admitted for further evaluation. Hospitalist is on page Disposition: Admission Impression: Exertional chest pain etiology History of coronary artery disease with 2 cardiac stents. Anticoagulated on Plavix and aspirin. History of lyq-qvtnwvb-tfuqtpclu diabetes, hypertension, COPD Chronic anemia Hyponatremia This note was generated with [employer] dictation software. It may contain incorrect words, spelling, and punctuation that were not noted in review of the chart prior to signing ED Disposition - Plan for ED Patient: Chief Complaint: Chest Pain [facility]errals: [facility] [Primary Care Provider] -
[2018-07-22 12:43] LABS: Anion Gap 12 (5-15); BUN 11 mg/dL (7-18); BUN/Creat Ratio 10.6 RATIO (10-20); Calcium,Total 8.6 mg/dL (8.5-10.1); Chloride 88 mmol/L (98-107); Creatinine, Serum 1.04 mg/dL (0.70-1.30); EST Glomerular Filtration Rate 76 mL/min (>60); Est Glom Filt Rate - Afr Amer 92 mL/min (>60); Estimated Creatinine Clearance 65.32 ml/min; Glucose 134 mg/dL (74-106); Potassium 3.6 mmol/L (3.5-5.1); Sodium Level 127 mmol/L (136-145)
[2018-07-22] MEDS: Aspirin 81 MG TAB.CHEW 324 MG PO (12:43)
--- NOTE | 2018-07-22 13:10 | NURSING ---
DR ZURI LEVI
--- NOTE | 2018-07-22 13:49 | HP.PCM_ITS ---
Problem List (1) Stable angina Status: Acute History of Present Illness Date of Admission: 07/22/18 Chief Complaint: chest pain The patient is a 68 year old M presents with exertional chest pain, left shoulder pain and shortness of breath. The symptoms have been going on since his stent was placed in April. The symptoms, however have gotten worse over the past few days. Patient did not let anyone know about this, including his , until today. Patient presented to the emergency room and underwent a workup which was unremarkable with exception of a sodium of 127. Troponin was negative and EKG was unremarkable. His symptoms are similar to when he had a stent put in back in April but the chest pain is more intense at this time. She states that he is taking his medications at home. [] Past Medical History Past Medical History (Chronic Problems): Chronic Problems (Last Reviewed 04/16/18 @ 13:13 by Lolly Matt) ELISHA (obstructive sleep apnea) (Chronic) Atherosclerotic heart disease of [place] coronary artery without angina pectoris (Chronic) Mild Hyperlipemia (Chronic) Type 2 diabetes mellitus (Chronic) Essential hypertension (Chronic) COPD (chronic obstructive pulmonary disease) (Chronic) Medical History: Medical History (Last Updated 07/22/18 @ 13:45 by Yong Olivo DO) ELISHA (obstructive sleep apnea) (Chronic) G47.33 Atherosclerotic heart disease of [place] coronary artery without angina pectoris (Chronic) I25.10 Mild Hyperlipemia (Chronic) E78.5 Type 2 diabetes mellitus (Chronic) E11.9 Essential hypertension (Chronic) I10 COPD (chronic obstructive pulmonary disease) (Chronic) J44.9 CAD (coronary artery disease) I25.10 Alcoholism F10.20 Lung nodule, multiple R91.8 Allergies doxycycline Allergy (Severe, Verified 07/22/18 12:06) Rash empagliflozin [From Jardiance] Adverse Reaction (Severe, Verified 07/22/18 12:06) yeast infection Home Medications: Ambulatory Orders Medication Instructions Recorded Albuterol IH (ProAir) [Proair Hfa] 2 puff INHALATION Q4H PRN PRN 06/24/15 Atorvastatin Calcium [Lipitor] 40 mg PO QHS 06/24/15 Budesonide/Formoterol 160/4.5 2 puff INHALATION BID 06/24/15 [Symbicort 160/4.5 Mcg Inhaler (SP)] Loratadine [Claritin] 10 mg PO DAILY 06/24/15 Metformin HCl [Glucophage] 1,000 mg PO BIDCM 06/24/15 Metoprolol Tartrate [Lopressor 25 mg PO BID 06/24/15 (beta jd)] Montelukast Sodium [Singulair] 10 mg PO DAILY 06/24/15 Tolnaftate [Tinactin] 1 applic TP DAILY 06/24/15 Valsartan [Diovan] 320 mg PO DAILY 06/24/15 albuterol sulfate 2.5 mg/3 mL 1.25 mg INHALATION Q4H PRN 04/14/18 (0.083 %) solution for nebulization cholecalciferol (vitamin D3) 2,000 2,000 unit PO DAILY 04/14/18 unit tablet clotrimazole 1 % topical cream 1 applic TOPICAL BID PRN 04/14/18 fluticasone 50 mcg/actuation nasal 1 spray INTRANASAL DAILY 04/14/18 spray,suspension gabapentin 100 mg capsule 100 mg PO TID cap 04/14/18 glipizide 5 mg tablet 5 mg PO BID tab 04/14/18 multivitamin tablet 1 tab PO DAILY 04/14/18 naproxen 500 mg tablet 500 mg PO BID PRN 04/14/18 nifedipine ER 90 mg 90 mg PO DAILY 04/14/18 tablet,extended release omega-3 fatty acids 1,000 mg 4,000 mg PO BID cap 04/14/18 capsule omeprazole 20 mg tablet,delayed 20 mg PO PRN PRN 04/14/18 release roflumilast 500 mcg tablet 500 mcg PO DAILY 04/14/18 tamsulosin 0.4 mg capsule 0.4 mg PO DAILY 04/14/18 tiotropium bromide 2.5 2 puff INHALATION DAILY 04/14/18 mcg/actuation mist for inhalation vitamin B complex tablet 1 tab PO .3XWEEK tab 04/14/18 potassium chloride ER 20 mEq 40 meq PO DAILY #60 tab 04/28/18 tablet,extended release Aspirin E.C. [Ecotrin] 81 mg PO DAILY@0800 tablet 05/02/18 hydrochlorothiazide 25 mg tablet 12.5 mg PO DAILY #1 tab 05/05/18 clopidogrel 75 mg tablet 75 mg PO DAILY #90 tab 06/12/18 Surgical History: Surgical History (Last Reviewed 07/22/18 @ 13:45 by Yong Olivo DO) History of cardiac catheterization Z98.890 07/30/10 History of hip replacement Z96.649 1984, revision 2010, repair of hip socket 1980 Smoking Status: Former smoker Tobacco Use: Non-smoker Alcohol: None Drugs: None - *Family History Maternal Family History: Family History (Last Reviewed 07/22/18 @ 13:45 by Yong Olivo DO) Father COPD (chronic obstructive pulmonary disease) Heart disease Mother CAD (coronary artery disease) Myocardial infarction CVA (cerebral vascular accident) Diabetes Brother CAD (coronary artery disease) Pacemaker Diabetes History of coronary artery bypass surgery Brother Brain aneurysm Review of Systems Constitutional: Reports: Malaise. Denies: Anorexia, Chills, Fever Eyes: Denies: Blurred vision, Double vision HEENT: Denies: Head Aches, Sinus Congestion, Sinus Drainage Cardiovascular: Reports: Chest Pain. Denies: Edema Respiratory: Reports: Shortness of breath upon exertion. Denies: Cough Gastrointestinal: Denies: Abdominal Pain, Nausea, Vomiting Genitourinary: Denies: Dysuria Musculoskeletal: Denies: Joint Pain, Joint Tenderness Skin: Denies: Rash, Wounds Neurological: Denies: Blurred vision, Double vision, Focal weakness, Numbness, Tingling Psychiatric: Denies: Anxiety, Depression Endocrine: Denies: Change in Body Habitus, Heat/ Cold Intolerance Hematologic/ Lymphatic: Denies: Easy Bruising, Easy Bleeding, Hx of blood clot Comment: A 10 point review of systems were negative except as mentioned in the history of present illness and the other review of systems. VTE Information - Inpt Only VTE Present on Admission: No VTE Pharm Prophylaxis ordered?: Yes Patient Problems: Active and Suspected Problems (Last Reviewed 04/16/18 @ 13:13 by Lolly Matt) Stable angina (Acute) - Physical Exam General: Alert, Cooperative, No apparent distress HEENT: Atraumatic, Normocephalic Oral: Moist Mucosa, No Gingival or Mucosal Lesions/ Ulcerations Neck: No Nodes, Thyroid Normal Size and Texture Lungs: Clear to auscultation, Normal air movement, No rhonchi, No wheeze Cardiovascular: Regular rate, Regular Rhythm, Normal S1, Normal S2, No murmurs Abdomen: Bowel Sounds Present, Soft, Non Tender, Non-Distended, No Hepato- splenomegaly Extremities: No edema, No Calf Tenderness Skin: No rashes, No breakdown Psych/Mental Status: Appropriate, Flat Affect Vital Signs Temp Pulse Resp BP Pulse Ox 36.6 C 62 17 166/87 H 98 07/22/18 12:06 07/22/18 13:31 07/22/18 13:31 07/22/18 13:31 07/22/18 13:31 Oxygen Flow Rate (L/min) 2 Oxygen Delivery Method Nasal Cannula Weight: 106.594 kg Body Mass Index (BMI) 36.8 Laboratory Tests Past 24 Hrs 07/22/18 07/22/18 12:15 12:15 WBC 6.7 RBC 3.16 L Hgb 9.0 L Hct 27.1 L MCV 85.8 MCH 28.5 MCHC 33.2 RDW 14.2 RDW Differential 44.7 H Plt Count 172 MPV 8.5 Immature Gran % (Auto) 0.100 Neut % (Auto) 76.2 H Lymph % (Auto) 18.7 L [place] % (Auto) 4.0 Eos % (Auto) 0.7 Baso % (Auto) 0.3 Absolute Neuts (auto) 5.1 Absolute Lymphs (auto) 1.25 Total Counted Not Reportable Sodium 127 L Potassium 3.6 Chloride 88 L Carbon Dioxide 27.0 Anion Gap 12 BUN 11 Creatinine 1.04 Estim Creat Clear Calc 65.32 Est GFR (MDRD) Af Amer 92 Est GFR (MDRD) Non-Af 76 BUN/Creatinine Ratio 10.6 Glucose 134 H Calcium 8.6 Troponin I < 0.015 Assessment/Plan All Active Problems (Last Reviewed 04/16/18 @ 13:13 by Lolly Matt) Stable angina (Acute) S/P PTCA (percutaneous transluminal coronary angioplasty) (Acute) Hypokalemia (Acute) 1. Stable angina Initial workup thus far is unremarkable We will continue to cycle troponins Discussed with Dr. Fall. He recommend getting a stress test and if the stress test is abnormal or if his troponins go up and consult cardiology at that point time. In list, patient is on aspirin but not on Plavix. Clopidogrel was on discharge paperwork from April. 2. Hyponatremia Likely related with HCTZ This appears to be chronic Discontinue HCTZ Monitor 3. Diabetes mellitus type 2 Fair control at this time Continue with glipizide as well as metformin If patient does need intravenous contrast, the metformin will need to be held for 5 days Moderate dose sliding scale 4. DVT prophylaxis with low molecular weight heparin. Case discussed with the patient's at bedside. Patient's symptoms have been going on for months but he has not until today. I advised patient to have a low threshold to inform either significant others in his physicians if he has having similar symptoms in the future. Code Visit OBSV E&M: 40906 Initial observation care L2
--- NOTE | 2018-07-22 13:59 | EKG12_ITS ---
Test Reason : CHEST PAIN Blood Pressure : / mmHG Vent. Rate : 058 BPM Atrial Rate : 058 BPM P-R Int : 170 ms QRS Dur : 098 ms QT Int : 436 ms P-R-T Axes : 071 061 052 degrees QTc Int : 428 ms Sinus bradycardia Otherwise normal ECG When compared with ECG of 02-MAY-2018 05:33, No significant change was found Confirmed by JAYY SIMMS, ALONZO ([id number]), scientific publications editor JAYLYN CHENG ([id number]) on 07/27/2018 10:19:39 AM Referred By: Yong Olivo Confirmed By:ALONZO HOPE MD
[2018-07-22] MEDS: metFORMIN HCl 1,000 MG Tablet 1000 MG PO (16:38)
[2018-07-22] MEDS: glipiZIDE 5 MG Tablet PO (16:47)
[2018-07-22 17:11] LABS: Bedside Glucose 126 mg/dL (70-110)
[2018-07-22] MEDS: Budesonide Respules 0.5 MG/2 ML AMPUL.NEB. INHALATION (22:28)
[2018-07-22] MEDS: Ipratropium/Albuterol Sulfate 3 ML AMPUL.NEB INHALATION (22:28)
[2018-07-22] MEDS: Omega-3 Acid Ethyl Esters 1 GM Capsule 2 GM PO (22:41)
[2018-07-22] MEDS: Gabapentin 100 MG Capsule PO (22:41)
[2018-07-22] MEDS: Atorvastatin Calcium 40 MG Tablet PO (22:42)
[2018-07-22] MEDS: ROFLUMILAST 500 MCG TABLET PO (22:42)
[2018-07-22] MEDS: Metoprolol Tartrate 25 MG Tablet PO (22:42)
[2018-07-22 22:50] LABS: Bedside Glucose 129 mg/dL (70-110)
[2018-07-23] VITALS (10 sets, daily range): BP systolic 132–159; BP diastolic 64–75; PULSE 58–87; RESP 16–20; TEMP 36.6–36.8; O2SAT 94–99
[2018-07-23] MEDS: Gabapentin 100 MG Capsule PO (05:32)
[2018-07-23] MEDS: Aspirin E.C. 81 MG Tablet PO (05:32)
[2018-07-23] MEDS: Losartan Potassium 100 MG Tablet PO (05:33)
[2018-07-23] MEDS: Clopidogrel Bisulfate 75 MG Tablet PO (05:33)
--- NOTE | 2018-07-23 05:55 | EKG12_ITS ---
Test Reason : AM EKG Blood Pressure : / mmHG Vent. Rate : 060 BPM Atrial Rate : 060 BPM P-R Int : 164 ms QRS Dur : 098 ms QT Int : 444 ms P-R-T Axes : 070 065 058 degrees QTc Int : 444 ms Normal sinus rhythm Normal ECG When compared with ECG of 22-JUL-2018 14:07, MANUAL COMPARISON REQUIRED, DATA IS UNCONFIRMED Confirmed by JAYY SIMMS, ALONZO ([id number]), editorial specialist JAYLYN CHENG ([id number]) on 07/27/2018 10:21:54 AM Referred By: Yong Olivo Confirmed By:ALONZO HOPE MD
[2018-07-23 06:09] LABS: Absolute Lymphocyte Count 1.19 X10^3/ul (0.83-4.51); Absolute Neutrophil Count 3.9 X10^3/uL (2.0-7.7); Basophil# 0.02 X10^3/uL; Basophil% 0.4 % (0-1); Eosinophil# 0.06 X10^3/uL; Eosinophils% 1.1 % (0-5); Hematocrit 26.3 % (40-54); Hemoglobin 8.5 g/dl (13.0-16.5); Lymphocyte # 1.19 X10^3/ul (4.0); Lymphocyte % 21.5 % (19-41); Mean Corp Hgb Conc 32.3 g/gl (32-36); Mean Corpuscular Hgb 27.9 pg (27.0-32.0); Mean Corpuscular Volume 86.2 fL (80-94); Mean Platelet Vol. 8.6 fl (6.2-12.0); Monocyte# 0.37 X10^3/uL; Monocyte% 6.7 % (0-10); Neutrophil # 3.88 X10^3/uL (2.7-7.7); Neutrophil % 69.9 % (47-70); Platelet Count 163 K/mm3 (150-450); RBC Distribution Width CV 14.3 % (11.6-14.6); Red Blood Count 3.05 M/mm3 (4.6-6.2); White Blood Count 5.5 K/mm3 (4.4-11.0)
[2018-07-23 06:10] LABS: POSITIVE COUNT NO; POSITIVE DIFFERENTIAL NO; POSITIVE MORPHOLOGY NO
[2018-07-23 06:14] LABS: Anion Gap 11 (5-15); BUN 12 mg/dL (7-18); BUN/Creat Ratio 13.3 RATIO (10-20); Calcium,Total 8.6 mg/dL (8.5-10.1); Chloride 92 mmol/L (98-107); EST Glomerular Filtration Rate 90 mL/min (>60); Est Glom Filt Rate - Afr Amer 108 mL/min (>60); Estimated Creatinine Clearance 75.48 ml/min; Glucose 146 mg/dL (74-106); Magnesium 1.8 mg/dL (1.6-2.6); Potassium 4.2 mmol/L (3.5-5.1); Sodium Level 130 mmol/L (136-145)
[2018-07-23 06:16] LABS: Prothrombin Time (Protime)PT. 13.5 SECONDS (11.7-14.9)
[2018-07-23 06:17] LABS: Partial Thromboplast Time 33.7 Seconds (24.1-36.2)
[2018-07-23 07:05] LABS: Bedside Glucose 134 mg/dL (70-110)
[2018-07-23] MEDS: Ipratropium/Albuterol Sulfate 3 ML AMPUL.NEB INHALATION ×2 (07:51→13:21)
[2018-07-23] MEDS: Budesonide Respules 0.5 MG/2 ML AMPUL.NEB. INHALATION (07:51)
[2018-07-23] MEDS: Metoprolol Tartrate 25 MG Tablet PO (10:52)
[2018-07-23] MEDS: NIFEdipine 90 MG Tablet PO (10:53)
[2018-07-23] MEDS: Multivitamins,Therapeutic Tablet 1 TABLET PO (10:56)
[2018-07-23] MEDS: Omega-3 Acid Ethyl Esters 1 GM Capsule 2 GM PO (10:57)
--- NOTE | 2018-07-23 12:45 | STRESSREP_ITS ---
Stress Test Report Date: 07/23/2018 Procedure: Pharmacologic stress nuclear imaging study Indications: Chest pain; CAD; status post PCI Consent: Per the patient Procedure: The patient underwent pharmacologic (Regadenoson) evaluation with a peak heart rate of 117 beats per minute (75 predicted maximal heart rate) and a peak blood pressure of 182/100 mmHg. The baseline ECG demonstrated normal sinus rhythm. The peak pharmacologic ECG demonstrated no obvious ECG changes. There was a rare PVC during recovery. There was no complaint of chest discomfort during pharmacologic infusion or recovery. The examination was discontinued secondary to completion of protocol. Impression: 1. Pharmacologic (Regadenoson) evaluation 2. Peak pharmacologic ECG with no obvious ECG changes. 3. There was a rare PVC during recovery. 4. Nuclear images pending Myocardial perfusion imaging study: Technique: The patient was injected with 14.6 millicuries of technetium 99m Cardiolite and subsequently rest SPECT Cardiolite nuclear imaging was obtained in the horizontal long, vertical long, and short axis views. The patient underwent pharmacologic (Regadenoson) evaluation with a peak heart rate of 117 beats per minute (75 % percent predicted maximal heart rate) and a peak blood pressure of 182/100 mmHg. The patient was injected with 44.2 millicuries of technetium 99m Cardiolite and subsequently stress SPECT Cardiolite nuclear imaging was obtained in the horizontal long, vertical long, and short axis views. A gated Cardiolite study at peak stress was obtained. Interpretation: Rest and stress SPECT Cardiolite nuclear imaging status post realignment, normalization, and attenuation correction demonstrate relative uniform tracer uptake in myocardial perfusion appearing within normal limits. There is end systolic thickening and brightening. The gated Cardiolite study demonstrates myocardial thickening and inward wall motion. The reported LVEF is 70 %. Impression: 1. Rest and stress SPECT Cardiolite nuclear imaging demonstrate relative uniform tracer uptake and myocardial perfusion appearing within normal limits. 2. The gated Cardiolite study reports an LVEF of 70 %. This note was generated with Apollidonation software. It may contain incorrect words, spelling, and punctuation that were not noted in checking the note before signing.
--- NOTE | 2018-07-23 13:28 | DCINST_ITS ---
- Discharge Diagnoses Current Active Problems: Current Active and Chronic Problems (Last Updated 07/22/18 @ 13:45 by Yong Olivo DO) Stable angina (Acute) You will use the following diet at home:: Cardiac Your food should be the consistency of: Regular Your liquids should be the consistency of: Regular/Thin Discharge Activity: Return to Normal Activity Weight Bearing Status: Weight bearing as tolerated Call your doctor if you observe: Shortness of breath, Dizziness, Fainting spells, Chest pain Instructions: What Is Angina? Additional Instructions: [facility] within one week. Allergies/Adverse Reactions: Allergies doxycycline Allergy (Severe, Verified 07/22/18 12:06) Rash empagliflozin [From Jardiance] Adverse Reaction (Severe, Verified 07/22/18 12:06) yeast infection Medications to take at Discharge Albuterol IH (ProAir) [Proair Hfa] 2 puff INHALATION Q4H PRN PRN 06/24/15 Atorvastatin Calcium [Lipitor] 40 mg PO QHS 06/24/15 Budesonide/Formoterol 160/4.5 [Symbicort 160/4.5 Mcg Inhaler (SP)] 2 puff INHALATION BID 06/24/15 Loratadine [Claritin] 10 mg PO DAILY 06/24/15 Metformin HCl [Glucophage] 1,000 mg PO BIDCM 06/24/15 Metoprolol Tartrate [Lopressor (beta jd)] 25 mg PO BID 06/24/15 Montelukast Sodium [Singulair] 10 mg PO DAILY 06/24/15 Tolnaftate [Tinactin] 1 applic TP DAILY 06/24/15 Valsartan [Diovan] 320 mg PO DAILY 06/24/15 albuterol sulfate 2.5 mg/3 mL (0.083 %) solution for nebulization 1.25 mg I NHALATION Q4H PRN 04/14/18 cholecalciferol (vitamin D3) 2,000 unit tablet 2,000 unit PO DAILY 04/14/18 clotrimazole 1 % topical cream 1 applic TOPICAL BID PRN 04/14/18 fluticasone 50 mcg/actuation nasal spray,suspension 1 spray INTRANASAL DAILY 04/14/18 gabapentin 100 mg capsule 100 mg PO TID cap 04/14/18 glipizide 5 mg tablet 5 mg PO BID tab 04/14/18 multivitamin tablet 1 tab PO DAILY 04/14/18 naproxen 500 mg tablet 500 mg PO BID PRN 04/14/18 nifedipine ER 90 mg tablet,extended release 90 mg PO DAILY 04/14/18 omega-3 fatty acids 1,000 mg capsule 4,000 mg PO BID cap 04/14/18 omeprazole 20 mg tablet,delayed release 20 mg PO PRN PRN 04/14/18 roflumilast 500 mcg tablet 500 mcg PO DAILY 04/14/18 tamsulosin 0.4 mg capsule 0.4 mg PO DAILY 04/14/18 tiotropium bromide 2.5 mcg/actuation mist for inhalation 2 puff INHALATION DAILY 04/14/18 vitamin B complex tablet 1 tab PO .3XWEEK tab 04/14/18 Aspirin E.C. [Ecotrin] 81 mg PO DAILY 07/22/18 Clopidogrel Bisulfate [Plavix] 75 mg PO DAILY 07/22/18 Hydrochlorothiazide [Hctz] 12.5 mg PO DAILY 07/22/18 Potassium Chloride [K-Tab ER] 40 meq PO DAILY 07/22/18 Nitroglycerin 0.4 mg SL PRN PRN #30 tab.subl 07/23/18 The following prescriptions were given: Nitroglycerin 0.4 mg SL PRN PRN #30 tab.subl PRN Reason: Cardiac/Chest Pain [facility] [[facility] Provider] - Please follow up with your Primary Care Physician in: one week Test Results: Test results from this visit will be discussed in further detail at your follow- up appointment, if applicable. Proposed Discharge Date: 07/23/18
--- NOTE | 2018-07-23 13:30 | PCM.DC.SUM ---
Discharge Date and Diagnosis - Problem List Patient Problems: Active and Suspected Problems (Last Updated 07/22/18 @ 13:45 by Yong Olivo DO) Stable angina (Acute) Date of Admission: 07/22/18 Date of Discharge: 07/23/18 - Primary Discharge Diagnosis Active and Suspected Problems (Last Updated 07/22/18 @ 13:45 by Yong Olivo DO) Stable angina (Acute) - Secondary Discharge Diagnosis Chronic Problems (Last Updated 07/22/18 @ 13:45 by Yong Olivo DO) ELISHA (obstructive sleep apnea) (Chronic) Atherosclerotic heart disease of [place] coronary artery without angina pectoris (Chronic) Mild Hyperlipemia (Chronic) Type 2 diabetes mellitus (Chronic) Essential hypertension (Chronic) COPD (chronic obstructive pulmonary disease) (Chronic) Hospital Course and Treatment Imaging Results: 07/23/18 05:55 Nuclear Stress Test - Chemical [NM] AM (NON MEDS) Impression: 1. Rest and stress SPECT Cardiolite nuclear imaging demonstrate relative uniform tracer uptake and myocardial perfusion appearing within normal limits. 2. The gated Cardiolite study reports an LVEF of 70 %. Operations: None Procedures: Stress test Summary of Care Provided: The patient is a 68 year old M with a past medical history which includes hypertension, ELISHA, COPD, type II by diabetes mellitus and chronic anemia. He was admitted with a complaint of exertional chest pain which radiated to his left shoulder with assisted shortness of breath. Symptoms have been going on since he had his stent placed in his heart in April 2018. He however worsened until the day of presentation. Troponins x3 were negative. Labs were unremarkable except for sodium of 127 which is chronic. Was admitted and managed for chest pain to rule out ACS. He had a stress test on 07/23/2018 which was negative. Patient was noted to have hemoglobin dropped from 9-8.5. He is noted to have chronic anemia and patient states he has been [facility] and has had numerous colonoscopies the last one was in about 3 years and did not find any cause of the anemia. Patient and his preferred to be discharged to follow-up with his [place] doctor for further monitoring of anemia. Patient seen and examined. He had no complaints and felt well. Chest pain had resolved. He denied any fever, any chills, any abdominal pain, any palpitations or dizziness, any diarrhea vomiting. 12 point review of systems otherwise negative. Labs and vitals reviewed. Home medications reviewed and reconciled. o/e: Vital Signs Height 5 ft 7 in Weight: 242 lb 1.081 oz Weight in Pounds 242.1 lbs BMI 36.8 Pulse Ox 95 Temperature 97.8 F Pulse Rate 87 Respiratory Rate 16 Blood Pressure 159/64 Blood Pressure Position Semi-Fowlers [] General: Alert, Cooperative, No apparent distress HEENT: Atraumatic, Normocephalic Oral: Moist Mucosa, No Gingival or Mucosal Lesions/ Ulcerations Neck: No Nodes, Thyroid Normal Size and Texture Lungs: Clear to auscultation, Normal air movement, No rhonchi, No wheeze Cardiovascular: Regular rate, Regular Rhythm, Normal S1, Normal S2, No murmurs Abdomen: Bowel Sounds Present, Soft, Non Tender, Non-Distended, No Hepato-splenomegaly Extremities: No edema, No Calf Tenderness Skin: No rashes, No breakdown Psych/Mental Status: Appropriate affect Plan as stated above. Patient to follow [facility] within one week. He was counselled to stop taking his aspirin and plavix if he noticed any dark stools or emesis. Patient Problems: Active and Suspected Problems (Last Updated 07/22/18 @ 13:45 by Yong Olivo DO) Stable angina (Acute) - Physical Exam General: Alert, Oriented x3, Cooperative HEENT: Atraumatic, PERRLA, EOMI, Normocephalic Oral: Moist Mucosa Neck: Supple Lungs: Clear to auscultation, Normal air movement Cardiovascular: Regular rate, Regular Rhythm, Normal S1, Normal S2, No murmurs Abdomen: Bowel Sounds Present, Soft, Non Tender Extremities: No clubbing, No cyanosis, No edema, Capillary Refill Less than 3 Seconds Skin: No rashes, No breakdown Musculoskeletal: No Tenderness to Palpation of Joints or Extremities Neurological: Cranial nerves II-XII grossly intact, Neuro grossly intact, Motor Exam 5/5 strength throughout Psych/Mental Status: Normal Affect, Appropriate, Alert and oriented to time, place, person, mood and affect Vital Signs Temp Pulse Resp BP Pulse Ox 97.8 F 87 16 159/64 H 95 07/23/18 10:59 07/23/18 11:01 07/23/18 10:59 07/23/18 10:59 07/23/18 10:59 Oxygen Flow Rate (L/min) 2 Oxygen Delivery Method Room Air Weight: 242 lb 1.081 oz Body Mass Index (BMI) 37.9 Intake and Output for Last 24 Hours 07/21/18 07/22/18 07/23/18 23:59 23:59 23:59 Intake Total 360 / 360 Balance 360 / 360 Laboratory Tests Past 24 Hrs 07/22/18 07/22/18 07/23/18 15:33 18:04 05:10 WBC 5.5 RBC 3.05 L Hgb 8.5 L Hct 26.3 L MCV 86.2 MCH 27.9 MCHC 32.3 RDW 14.3 RDW Differential 45.0 H Plt Count 163 MPV 8.6 Immature Gran % (Auto) 0.400 Neut % (Auto) 69.9 Lymph % (Auto) 21.5 [place] % (Auto) 6.7 Eos % (Auto) 1.1 Baso % (Auto) 0.4 Absolute Neuts (auto) 3.9 Absolute Lymphs (auto) 1.19 Total Counted Not Reportable PT INR APTT Sodium Potassium Chloride Carbon Dioxide Anion Gap BUN Creatinine Estim Creat Clear Calc Est GFR (MDRD) Af Amer Est GFR (MDRD) Non-Af BUN/Creatinine Ratio Glucose Calcium Magnesium Iron TIBC Iron Saturation Ferritin Troponin I < 0.015 < 0.015 07/23/18 07/23/18 07/23/18 05:10 05:10 05:10 WBC RBC Hgb Hct MCV MCH MCHC RDW RDW Differential Plt Count MPV Immature Gran % (Auto) Neut % (Auto) Lymph % (Auto) [place] % (Auto) Eos % (Auto) Baso % (Auto) Absolute Neuts (auto) Absolute Lymphs (auto) Total Counted PT 13.5 INR 1.0 APTT 33.7 Sodium 130 L Potassium 4.2 Chloride 92 L Carbon Dioxide 27.0 Anion Gap 11 BUN 12 Creatinine 0.90 Estim Creat Clear Calc 75.48 Est GFR (MDRD) Af Amer 108 Est GFR (MDRD) Non-Af 90 BUN/Creatinine Ratio 13.3 Glucose 146 H Calcium 8.6 Magnesium 1.8 Iron Pending TIBC Pending Iron Saturation Pending Ferritin Pending Troponin I POC Glucose 07/23/18 07/22/18 07/22/18 06:51 22:29 16:35 POC Glucose 134 H 129 H 126 H Discharge Activity: Return to Normal Activity Weight Bearing Status: Weight bearing as tolerated Call your doctor if you observe: Shortness of breath, Dizziness, Fainting spells, Chest pain Home Medications: Medications to take at Discharge Albuterol IH (ProAir) [Proair Hfa] 2 puff INHALATION Q4H PRN PRN 06/24/15 Atorvastatin Calcium [Lipitor] 40 mg PO QHS 06/24/15 Budesonide/Formoterol 160/4.5 [Symbicort 160/4.5 Mcg Inhaler (SP)] 2 puff INHALATION BID 06/24/15 Loratadine [Claritin] 10 mg PO DAILY 06/24/15 Metformin HCl [Glucophage] 1,000 mg PO BIDCM 06/24/15 Metoprolol Tartrate [Lopressor (beta jd)] 25 mg PO BID 06/24/15 Montelukast Sodium [Singulair] 10 mg PO DAILY 06/24/15 Tolnaftate [Tinactin] 1 applic TP DAILY 06/24/15 Valsartan [Diovan] 320 mg PO DAILY 06/24/15 albuterol sulfate 2.5 mg/3 mL (0.083 %) solution for nebulization 1.25 mg INHALATION Q4H PRN 04/14/18 cholecalciferol (vitamin D3) 2,000 unit tablet 2,000 unit PO DAILY 04/14/18 clotrimazole 1 % topical cream 1 applic TOPICAL BID PRN 04/14/18 fluticasone 50 mcg/actuation nasal spray,suspension 1 spray INTRANASAL DAILY 04/14/18 gabapentin 100 mg capsule 100 mg PO TID cap 04/14/18 glipizide 5 mg tablet 5 mg PO BID tab 04/14/18 multivitamin tablet 1 tab PO DAILY 04/14/18 naproxen 500 mg tablet 500 mg PO BID PRN 04/14/18 nifedipine ER 90 mg tablet,extended release 90 mg PO DAILY 04/14/18 omega-3 fatty acids 1,000 mg capsule 4,000 mg PO BID cap 04/14/18 omeprazole 20 mg tablet,delayed release 20 mg PO PRN PRN 04/14/18 roflumilast 500 mcg tablet 500 mcg PO DAILY 04/14/18 tamsulosin 0.4 mg capsule 0.4 mg PO DAILY 04/14/18 tiotropium bromide 2.5 mcg/actuation mist for inhalation 2 puff INHALATION DAILY 04/14/18 vitamin B complex tablet 1 tab PO .3XWEEK tab 04/14/18 Aspirin E.C. [Ecotrin] 81 mg PO DAILY 07/22/18 Clopidogrel Bisulfate [Plavix] 75 mg PO DAILY 07/22/18 Hydrochlorothiazide [Hctz] 12.5 mg PO DAILY 07/22/18 Potassium Chloride [K-Tab ER] 40 meq PO DAILY 07/22/18 Nitroglycerin 0.4 mg SL PRN PRN #30 tab.subl 07/23/18 Following Prescrptions Were Given to Patient: Nitroglycerin 0.4 mg SL PRN PRN #30 tab.subl PRN Reason: Cardiac/Chest Pain [facility] Care Physician: [facility] [Primary Care Provider] - Please follow up with your Primary Care Physician in: one week Patient Instructions: What Is Angina? Disposition: Home Minutes spent on discharge:: 37 Patient Condition:: Stable Medical Necessity - Tobacco Use Smoking Status: Former smoker Tobacco Use: Non-smoker Meaningful Use Info Meaningful Use Diagnoses (Choose all that apply): None applicable Code Visit Inpatient E&M: 69163 Disch Hosp
[2018-07-23 13:36] LABS: Ferritin 8 ng/mL (26-388); Iron 23 ug/dL (65-175); Iron Binding Capacity,Total 377 ug/dL (250-450); PERCENT IRON SATURATION 6.1 % (15.0-55.0)
== END 2018-07-23 13:30 | disposition home or self-care (01) ==
LOC: ED 13:04 → PCU 13:26
PROVIDERS: Emergency Provider Emergency Medicine; Visit Provider Student in an Organized Health Care Education/Training Program
DX: I25.118 Atherosclerotic heart disease of native coronary artery with other forms of angina pectoris (principal); G47.33 Obstructive sleep apnea (adult) (pediatric); J44.9 Chronic obstructive pulmonary disease, unspecified; E78.5 Hyperlipidemia, unspecified; I10 Essential (primary) hypertension; I27.20 Pulmonary hypertension, unspecified; E87.1 Hypo-osmolality and hyponatremia; E87.6 Hypokalemia; D50.9 Iron deficiency anemia, unspecified; R91.8 Other nonspecific abnormal finding of lung field; Z79.899 Other long term (current) drug therapy; Z79.84 Long term (current) use of oral hypoglycemic drugs; Z79.82 Long term (current) use of aspirin; Z79.02 Long term (current) use of antithrombotics/antiplatelets; Z95.5 Presence of coronary angioplasty implant and graft; Z87.891 Personal history of nicotine dependence
CPT/HCPCS: 36415; 71045; 78452; 80048; 82728; 82962; 83540; 83550; 83735; 84484; 85025; 85610; 85730; 93005; 93017; 94640; 99218; 99285; A9500; A4216; G0378; J2785

== ENCOUNTER 2018-07-24 17:40 | Inpatient (IN) | payer MEDICARE, SELFPAY ==
[2018-05-01 14:21] VITALS: BMI 36.8
[2018-07-22 14:12] VITALS: BMI 37.9
[2018-07-24 17:41] VITALS: BP 148/79; PULSE 82; RESP 22; TEMP 36.3; O2SAT 95; BMI 38.1
--- NOTE | 2018-07-24 18:13 | US_ITS ---
STUDY: SCROTUM ULTRASOUND REASON FOR EXAM: Male, 68 years old. Swelling TECHNIQUE: Ultrasound evaluation of the scrotum was performed with color Doppler and static healy-scale imaging. COMPARISON: None. FINDINGS: RIGHT TESTICLE INTRATESTICULAR: There is a normal size of the right testicle. The right testicle measures 4.7 x 3.0 x 2.9 cm. There is a homogenous echotexture. There is normal arterial and normal venous vascularity. There is no demonstrated right testicular mass or cyst. EXTRATESTICULAR: The epididymis is normal in size. The epididymis head measures 1.3 cm. There is normal vascularity of the epididymis. There is a subcentimeter epididymal cyst. There is a large hydrocele with septations. There is no demonstrated varicocele. There is no demonstrated extratesticular mass or cyst. LEFT TESTICLE INTRATESTICULAR: There is a normal size of the left testicle. The left testicle measures 4.7 x 3.0 x 2.8 cm cm. There is a homogenous echotexture. There is normal arterial and normal venous vascularity. There is no demonstrated left testicular mass or cyst. EXTRATESTICULAR: The epididymis is normal in size. The epididymis head measures cm. There is normal vascularity of the epididymis. There is a subcentimeter epididymal cyst. There is large left hydrocele with septations. There is no demonstrated varicocele. There is no demonstrated extratesticular mass or cyst. US/Testicular with Arterial Flow IMPRESSION: Normal bilateral testicles with normal Doppler flow. Bilateral large complex hydroceles with septations. Bilateral subcentimeter epididymal cysts. Electronically Signed: Skyler Escudero, at 20:54 EST Tel , Service support ,
--- NOTE | 2018-07-24 18:13 | EKG12_ITS ---
Test Reason : SOB Blood Pressure : / mmHG Vent. Rate : 070 BPM Atrial Rate : 070 BPM P-R Int : 164 ms QRS Dur : 090 ms QT Int : 398 ms P-R-T Axes : 065 064 061 degrees QTc Int : 429 ms Normal sinus rhythm Normal ECG Confirmed by JAYY SIMMS, ALONZO ([id number]), clinical editor JAYLYN CHENG ([id number]) on 07/28/2018 4:35:20 PM Referred By: MARIBEL Confirmed By:ALONZO HOPE MD
[2018-07-24 18:30] VITALS: PULSE 74; RESP 18
[2018-07-24] MEDS: Ipratropium/Albuterol Sulfate 3 ML AMPUL.NEB INHALATION (18:30)
[2018-07-24] MEDS: 0.9% Normal Saline 1,000 ML 150 ML IV (18:41)
[2018-07-24 18:42] VITALS: BP 136/66; PULSE 74; RESP 15; O2SAT 93; O2SAT 95
[2018-07-24 18:48] LABS: Absolute Lymphocyte Count 1.25 X10^3/ul (0.83-4.51); Absolute Neutrophil Count 5.2 X10^3/uL (2.0-7.7); Basophil# 0.01 X10^3/uL; Basophil% 0.1 % (0-1); Eosinophil# 0.09 X10^3/uL; Eosinophils% 1.3 % (0-5); Hematocrit 29.5 % (40-54); Hemoglobin 9.3 g/dl (13.0-16.5); Lymphocyte # 1.25 X10^3/ul (4.0); Lymphocyte % 17.6 % (19-41); Mean Corp Hgb Conc 31.5 g/gl (32-36); Mean Corpuscular Hgb 28.1 pg (27.0-32.0); Mean Corpuscular Volume 89.1 fL (80-94); Mean Platelet Vol. 8.5 fl (6.2-12.0); Monocyte% 7.1 % (0-10); Neutrophil # 5.21 X10^3/uL (2.7-7.7); Neutrophil % 73.5 % (47-70); Platelet Count 211 K/mm3 (150-450); RBC Distribution Width CV 14.7 % (11.6-14.6); RBC Distribution Width SD 47.6 fl (35.1-43.9); Red Blood Count 3.31 M/mm3 (4.6-6.2); White Blood Count 7.1 K/mm3 (4.4-11.0)
[2018-07-24 19:00] LABS: POSITIVE COUNT NO; POSITIVE DIFFERENTIAL NO; POSITIVE MORPHOLOGY NO
[2018-07-24 19:03] LABS: Anion Gap 11 (5-15); BUN 12 mg/dL (7-18); BUN/Creat Ratio 10.3 RATIO (10-20); Calcium,Total 8.7 mg/dL (8.5-10.1); Chloride 100 mmol/L (98-107); Creatinine, Serum 1.17 mg/dL (0.70-1.30); EST Glomerular Filtration Rate 66 mL/min (>60); Est Glom Filt Rate - Afr Amer 80 mL/min (>60); Estimated Creatinine Clearance 58.07 ml/min; Glucose 163 mg/dL (74-106); Potassium 3.6 mmol/L (3.5-5.1); Sodium Level 135 mmol/L (136-145)
[2018-07-24 19:14] LABS: D-Dimer Quantitative (DVT/PE) 0.29 FEU/ug/m (0.27-0.49)
[2018-07-24 19:48] LABS: BNP,B-Type NATRIURETIC PEPTIDE 49.9 pg/mL (0-100)
--- NOTE | 2018-07-24 20:30 | RAD_ITS ---
STUDY: X-RAY CHEST REASON FOR EXAM: Male, 68 years old. Dyspnea TECHNIQUE: Single AP portable view of the chest. COMPARISON: None. FINDINGS: The lungs are clear and expanded. There is no demonstrated pleural abnormality. Normal size heart. Normal mediastinum and darryl. Normal visualized pulmonary arteries. Normal visualized aortic arch and descending thoracic aorta. Normal visualized thoracic spine. There is degenerative osteoarthritis of the bilateral shoulders. There is no demonstrated abnormality of the visualized soft tissue structures of the upper abdomen. RAD/Chest 1 View (Portable) IMPRESSION: Degenerative changes, as described above. No demonstrated acute cardiopulmonary process. Electronically Signed: Sharon Pastrana MD at 21:19 EST Tel , Service support ,
[2018-07-24 21:18] VITALS: BP 142/75; PULSE 69; RESP 16; O2SAT 94
--- NOTE | 2018-07-24 22:21 | ED.VISSUMM ---
- ER Visit Summary Date of Service: 07/24/18 Chief Complaint: [Shortness of breath] History of Present Illness: The patient is a 68 M [presents the emergency department complaint of shortness of breath started 2-3 days ago. Patient states that he was admitted to the hospital 2 days ago and just discharged after complaining of chest pain and shortness of breath. Patient had a stress test that was normal. Patient comes in stating that he continues to feel short of breath with minimal activity and generally feels very weak. Patient also has right-sided testicle swelling that he noticed today. He denies any trauma to his testicles. Patient states that he had a heart catheterization and 2 stents placed last year. Patient denies recent travel or surgery.] Physical Examination: [HEENT-PERRLA, EOMI. Cranial nerves II through XII grossly intact. TMs clear. Mucous membranes moist. No adenopathy. Cardiovascular-regular rate and rhythm without murmur or ectopy Lungs-clear to auscultation, chest wall stable without crepitus or subcu emphysema Abdomen-normoactive bowel sounds, soft, nontender, no rebound or rigidity, no peritoneal signs. exam-patient has a enlarged fluid-filled scrotum right greater than left. No masses palpated. No real tenderness to the testicles. Extremities-intact ?4, normal range of motion, normal pulses, atraumatic] Test Results: [EKG obtained on arrival showed a sinus rhythm with a ventricular rate of 70 bpm. CBC with differential showed a white count 7.1, hemoglobin 9.3, hematocrit 29.5. Chemistries unremarkable. Troponin less than 0.015. BNP was 49. D-dimer was 0.29. Chest x-ray showed nothing acute.] Ultrasound of the testicles showed large complex hydroceles bilaterally Emergency Department Course and Treatment: [Case was discussed with Dr. Chad Reese who is the patient's canteen attendant. At this point it is unclear the etiology of his exertional dyspnea and fatigue. Patient is adamant this does not feel like typical COPD exacerbation as he is lived with COPD for many years. There is still concern that exertional dyspnea may be cardiac related. Given that he had a normal stress test 2 days ago it was felt patient may require cardiac catheterization to definitively evaluate coronary arteries.] Treatment Plan: [Admit] Disposition: [Admit] Impression: [Exertional dyspnea/anginal equivalent] This note was generated with [employer] dictation software. It may contain incorrect words, spelling, and punctuation that were not noted in review of the chart prior to signing ED Disposition - Plan for ED Patient: Chief Complaint: Shortness of Breath [facility] [Primary Care Provider] -
--- NOTE | 2018-07-24 22:22 | PCM.HP.STD ---
Problem List (1) Pulmonary HTN Status: Suspected (2) S/P PTCA (percutaneous transluminal coronary angioplasty) Status: Acute History of Present Illness Date of Admission: 07/24/18 Chief Complaint: shortness of breath The patient is a 68 year old M with a significant significant history of CAD status post coronary stents; COPD with home oxygen use; essential hypertension; obstructive sleep apnea and type 2 diabetes who presented with 1 day history of progressively worsening shortness of breath mild exertion. Associated with symptoms is fatigue and shakiness. Also he reports a cough of thick white sputum but this is chronic. He denies any chest pain Patient family reported that patient had a coronary stent placed in April 2018. Patient was recently admitted on 07/22/2018 and discharged on 07/23/2018 for chest pain with unremarkable stress test and normal troponin level. Although patient has a history of COPD he does not feel that this time around his shortness of breath is due to COPD. Also patient reported swelling of his testicles on the same day of presentation to the emergency department. At the emergency department cardiology was consulted. Per emergency department doctor cardiology recommended an echocardiogram. Per ED doc cardiology may consider cardiac catheterization on 07/27/2018 if indicated. Past Medical History Past Medical History (Chronic Problems): Chronic Problems (Last Reviewed 07/25/18 @ 02:54 by Jordy Eagle MD) ELISHA (obstructive sleep apnea) (Chronic) Atherosclerotic heart disease of [place] coronary artery without angina pectoris (Chronic) Mild Hyperlipemia (Chronic) Type 2 diabetes mellitus (Chronic) Essential hypertension (Chronic) COPD (chronic obstructive pulmonary disease) (Chronic) Medical History: Medical History (Last Reviewed 07/25/18 @ 06:42 by Jordy Eagle MD) ELISHA (obstructive sleep apnea) (Chronic) G47.33 Atherosclerotic heart disease of [place] coronary artery without angina pectoris (Chronic) I25.10 Mild Hyperlipemia (Chronic) E78.5 Type 2 diabetes mellitus (Chronic) E11.9 Essential hypertension (Chronic) I10 COPD (chronic obstructive pulmonary disease) (Chronic) J44.9 Alcoholism F10.20 CAD (coronary artery disease) I25.10 Lung nodule, multiple R91.8 Allergies doxycycline Allergy (Severe, Verified 07/24/18 17:41) Rash empagliflozin [From Jardiance] Adverse Reaction (Severe, Verified 07/24/18 17:41) yeast infection Home Medications: Ambulatory Orders Medication Instructions Recorded Albuterol IH (ProAir) [Proair Hfa] 2 puff INHALATION Q4H PRN PRN 06/24/15 Atorvastatin Calcium [Lipitor] 40 mg PO QHS 06/24/15 Budesonide/Formoterol 160/4.5 2 puff INHALATION BID 06/24/15 [Symbicort 160/4.5 Mcg Inhaler (SP)] Loratadine [Claritin] 10 mg PO DAILY PRN 06/24/15 Metformin HCl [Glucophage] 1,000 mg PO BIDCM 06/24/15 Metoprolol Tartrate [Lopressor 25 mg PO BID 06/24/15 (beta jd)] Montelukast Sodium [Singulair] 10 mg PO DAILY 06/24/15 Tolnaftate [Tinactin] 1 applic TP PRN PRN 06/24/15 Valsartan [Diovan] 320 mg PO DAILY 06/24/15 albuterol sulfate 2.5 mg/3 mL 1.25 mg INHALATION Q4H PRN 04/14/18 (0.083 %) solution for nebulization cholecalciferol (vitamin D3) 2,000 2,000 unit PO DAILY 04/14/18 unit tablet clotrimazole 1 % topical cream 1 applic TOPICAL BID PRN 04/14/18 fluticasone 50 mcg/actuation nasal 1 spray INTRANASAL DAILY 04/14/18 spray,suspension gabapentin 100 mg capsule 100 mg PO QHS cap 04/14/18 glipizide 5 mg tablet 5 mg PO BID tab 04/14/18 multivitamin tablet 1 tab PO DAILY 04/14/18 naproxen 500 mg tablet 500 mg PO BID PRN 04/14/18 nifedipine ER 90 mg 90 mg PO DAILY 04/14/18 tablet,extended release omega-3 fatty acids 1,000 mg 2,000 mg PO BID cap 04/14/18 capsule omeprazole 20 mg tablet,delayed 20 mg PO DAILY 04/14/18 release roflumilast 500 mcg tablet 500 mcg PO DAILY 04/14/18 tamsulosin 0.4 mg capsule 0.4 mg PO DAILY 04/14/18 tiotropium bromide 2.5 2 puff INHALATION DAILY 04/14/18 mcg/actuation mist for inhalation vitamin B complex tablet 1 tab PO MOWEFR tab 04/14/18 Aspirin E.C. [Ecotrin] 81 mg PO DAILY 07/22/18 Clopidogrel Bisulfate [Plavix] 75 mg PO DAILY 07/22/18 Hydrochlorothiazide [Hctz] 12.5 mg PO DAILY 07/22/18 Potassium Chloride [K-Tab ER] 40 meq PO DAILY 07/22/18 Nitroglycerin 0.4 mg SL PRN PRN #30 tab.subl 07/23/18 Gabapentin [Neurontin] 200 mg PO DAILY 07/25/18 Surgical History: Surgical History (Last Reviewed 07/25/18 @ 02:54 by Jordy Eagle MD) History of cardiac catheterization Z98.890 07/30/10 History of hip replacement Z96.649 1984, revision 2010, repair of hip socket 1980 Lives: Spouse/ Significant Other Smoking Status: Former smoker Alcohol: None - *Family History Maternal Family History: Family History (Last Reviewed 07/25/18 @ 06:42 by Jordy Eagle MD) Father COPD (chronic obstructive pulmonary disease) Heart disease Mother CAD (coronary artery disease) Myocardial infarction CVA (cerebral vascular accident) Diabetes Brother CAD (coronary artery disease) Pacemaker Diabetes History of coronary artery bypass surgery Brother Brain aneurysm Review of Systems Constitutional: Reports: Fatigue. Denies: Chills, Fever, Weight Change HEENT: Denies: Head Aches, Sinus Congestion, Sinus Drainage Cardiovascular: Denies: Chest Pain, Palpitations Respiratory: Reports: Cough - Chronic, Shortness of breath upon exertion, Sputum production - Chronic Gastrointestinal: Denies: Abdominal Pain, Nausea, Vomiting Genitourinary: Denies: Dysuria Musculoskeletal: Denies: Joint Pain, Joint Tenderness Skin: Denies: Rash, Wounds Neurological: Denies: Numbness, Tingling, Focal weakness Psychiatric: Denies: Anxiety, Depression, Homicidal Ideations, Suicidal Ideations Hematologic/ Lymphatic: Denies: Easy Bruising, Easy Bleeding VTE Information - Inpt Only VTE Present on Admission: No VTE Mechan Device Prophylaxis: None VTE Pharm Prophylaxis ordered?: Yes Patient Problems: Active and Suspected Problems (Last Reviewed 07/25/18 @ 02:54 by Jordy Eagle MD) Pulmonary HTN (Suspected) - Physical Exam General: Alert, Oriented x3, Cooperative HEENT: Atraumatic, PERRLA, EOMI, Normocephalic Neck: Supple, No JVD, Negative Carotid Bruits Lungs: Clear to auscultation, Normal air movement Cardiovascular: Regular rate, No murmurs Abdomen: Bowel Sounds Present, Soft, Non Tender, - - Swelling of testicles; right more than left. Extremities: No edema, Capillary Refill Less than 3 Seconds Skin: No rashes, No breakdown Musculoskeletal: No Tenderness to Palpation of Joints or Extremities Neurological: Neuro grossly intact Psych/Mental Status: Normal Affect, Appropriate Vital Signs Temp Pulse Resp BP Pulse Ox 97.4 F L 69 16 142/75 H 94 07/24/18 17:41 07/24/18 21:18 07/24/18 21:18 07/24/18 21:18 07/24/18 21:18 Oxygen Delivery Method Room Air Weight: 110.495 kg Body Mass Index (BMI) 38.1 Laboratory Tests Past 24 Hrs 07/24/18 07/24/18 07/24/18 18:35 18:35 18:35 WBC 7.1 RBC 3.31 L Hgb 9.3 L Hct 29.5 L MCV 89.1 MCH 28.1 MCHC 31.5 L RDW 14.7 H RDW Differential 47.6 H Plt Count 211 MPV 8.5 Immature Gran % (Auto) 0.400 Neut % (Auto) 73.5 H Lymph % (Auto) 17.6 L [place] % (Auto) 7.1 Eos % (Auto) 1.3 Baso % (Auto) 0.1 Absolute Neuts (auto) 5.2 Absolute Lymphs (auto) 1.25 Total Counted Not Reportable D-Dimer Quant (PE/DVT) 0.29 Sodium 135 L Potassium 3.6 Chloride 100 Carbon Dioxide 24.0 Anion Gap 11 BUN 12 Creatinine 1.17 Estim Creat Clear Calc 58.07 Est GFR (MDRD) Af Amer 80 Est GFR (MDRD) Non-Af 66 BUN/Creatinine Ratio 10.3 Glucose 163 H Calcium 8.7 Troponin I < 0.015 B-Natriuretic Peptide 07/24/18 18:35 WBC RBC Hgb Hct MCV MCH MCHC RDW RDW Differential Plt Count MPV Immature Gran % (Auto) Neut % (Auto) Lymph % (Auto) [place] % (Auto) Eos % (Auto) Baso % (Auto) Absolute Neuts (auto) Absolute Lymphs (auto) Total Counted D-Dimer Quant (PE/DVT) Sodium Potassium Chloride Carbon Dioxide Anion Gap BUN Creatinine Estim Creat Clear Calc Est GFR (MDRD) Af Amer Est GFR (MDRD) Non-Af BUN/Creatinine Ratio Glucose Calcium Troponin I B-Natriuretic Peptide 49.9 Assessment/Plan All Active Problems (Last Reviewed 07/25/18 @ 02:54 by Jordy Eagle MD) Hypokalemia (Resolved) S/P PTCA (percutaneous transluminal coronary angioplasty) (Acute) Stable angina (Resolved) The patient is a 68 year old M with a significant significant history of CAD status post coronary stents; COPD with home oxygen use; essential hypertension; obstructive sleep apnea and type 2 diabetes who presented with 1 day history of progressively worsening shortness of breath mild exertion after discharge from the hospital a day ago where stress test was unremarkable and troponin levels were unremarkable. Suspect pulmonary hypertension. Other different diagnosis include heart failure though his BNP was unremarkable. Further, other differential diagnosis include viral illness We will obtain echocardiogram. Repeat troponin was negative. No more troponin at this time. We will hold his nifedipine because of probable heart failure. We will add labetalol to his regimen. Hold home naproxen prn because of probable heart failure. Comprehensive respiratory pathogen panel ordered. CAD status post stent Patient denies any active chest pain Troponin level so far are negative Aspirin, Plavix and Lipitor continued. Hydrocele Patient denies any pain We will consult urology. Epididymal cyst Urology consult as above. COPD Does not look like he has an exacerbation of COPD he has no wheezing and his lungs are not decreased.. Scheduled DuoNeb. Albuterol ordered. Loratadine continued Hypertension At admission his blood pressure was not within goal Hydrochlorothiazide continued Metoprolol continued As needed labetalol ordered. Nifedipine discontinued because of probable heart failure Cozaar continued Trend blood pressure and adjust blood pressure medication. Diabetes mellitus On admission blood glucose was within goal Glipizide continued Metformin discontinued because of likely cardiac cath Trend BMP Neuropathy Neurontin continued Tinea pedis Clotrimazole cream continued DVT Prophylaxis Subcutaneous Lovenox Code Visit Inpatient E&M: 26302 Init Hosp L3
--- NOTE | 2018-07-24 22:30 | ED.DCSUM_ITS ---
- ER Visit Summary Date of Service: 07/24/18 Chief Complaint: [Shortness of breath] History of Present Illness: The patient is a 68 M [presents the emergency department complaint of shortness of breath started 2-3 days ago. Patient states that he was admitted to the hospital 2 days ago and just discharged after complaining of chest pain and shortness of breath. Patient had a stress test that was normal. Patient comes in stating that he continues to feel short of breath with minimal activity and generally feels very weak. Patient also has right-sided testicle swelling that he noticed today. He denies any trauma to his testicles. Patient states that he had a heart catheterization and 2 stents placed last year. Patient denies recent travel or surgery.] Physical Examination: [HEENT-PERRLA, EOMI. Cranial nerves II through XII grossly intact. TMs clear. Mucous membranes moist. No adenopathy. Cardiovascular-regular rate and rhythm without murmur or ectopy Lungs-clear to auscultation, chest wall stable without crepitus or subcu emphysema Abdomen-normoactive bowel sounds, soft, nontender, no rebound or rigidity, no peritoneal signs. exam-patient has a enlarged fluid-filled scrotum right greater than left. No masses palpated. No real tenderness to the testicles. Extremities-intact ?4, normal range of motion, normal pulses, atraumatic] Test Results: [EKG obtained on arrival showed a sinus rhythm with a ventricular rate of 70 bpm. CBC with differential showed a white count 7.1, hemoglobin 9.3, hematocrit 29.5. Chemistries unremarkable. Troponin less than 0.015. BNP was 49. D-dimer was 0.29. Chest x-ray showed nothing acute.] Ultrasound of the testicles showed large complex hydroceles bilaterally Emergency Department Course and Treatment: [Case was discussed with Dr. Chad roche who is the patient's inspector tool. At this point it is unclear the etiology of his exertional dyspnea and fatigue. Patient is adamant this does not feel like typical COPD exacerbation as he is lived with COPD for many years. There is still concern that exertional dyspnea may be cardiac related. Given that he had a normal stress test 2 days ago it was felt patient may require cardiac catheterization to definitively evaluate coronary arteries.] Treatment Plan: [Admit] Disposition: [Admit] Impression: [Exertional dyspnea/anginal equivalent] This note was generated with [employer] dictation software. It may contain incorrect words, spelling, and punctuation that were not noted in review of the chart prior to signing ED Disposition - Plan for ED Patient: Chief Complaint: Shortness of Breath [facility]: [facility] [Primary Care Provider] -
[2018-07-24 23:04] VITALS: BP 154/79; PULSE 70; RESP 14; O2SAT 95
[2018-07-25] VITALS (21 sets, daily range): BP systolic 137–190; BP diastolic 64–88; PULSE 62–94; RESP 13–20; TEMP 36.5–36.7; O2SAT 93–97; BMI 36.8
--- NOTE | 2018-07-25 00:03 | ECHOD_ITS ---
Reason For Study: Dyspnea/SOB Procedure This was a 2D Doppler, Color Flow transthoracic echocardiogram. The exam was of adequate technical quality. Exam performed portable in patient room. Left Ventricle Normal LV size. Left ventricular systolic function is normal. The estimated ejection fraction is 65 %. Diastolic function is indeterminate. No regional wall motion abnormalities noted. Right Ventricle Normal RV size. Normal systolic function. Atria The left atrium is mildly enlarged. Normal right atrium. No doppler evidence for ASD. Mitral Valve There is no mitral annular calcification. Normal mitral valve. Mild (1+) eccentric mitral valve insufficiency. Tricuspid Valve Normal tricuspid valve. Trivial tricuspid valve insufficiency. Right ventricular systolic pressure estimated to be 36 mmHg. Aortic Valve Trisinus/trileaflet aortic valve. Mild diffuse aortic valve thickening. Mild focal aortic valve calcification. Aortic sclerosis, no stenosis. Pulmonic Valve The pulmonic valve is not well visualized. Great Vessels Normal sized aortic root. Calcified aortic root. Pericardium/Pleural No pericardial effusion. MMode/2D Measurements & Calculations LVIDd: 5.3 cm IVSd: 1.1 cm LVOT diam: 2.0 cm LVIDs: 3.2 cm LVPWd: 0.67 cm LVOT area: 3.2 cm2 RVDd: 4.7 cm FS: 40.5 % Ao root diam: 2.7 cm LAV(MOD-bp): 61.8 ml LVAd ap4: 27.3 cm2 LAV(MOD-bp) Indexed: 28.2 ml/m2 EDV(MOD-sp4): 81.2 ml LAV(MOD-sp2): 61.3 ml EDV(sp4-el): 82.1 ml LAV(MOD-sp4): 57.4 ml LVAs ap4: 12.9 cm2 ESV(MOD-sp4): 23.6 ml ESV(sp4-el): 22.8 ml EF(MOD-sp4): 70.9 % EF(sp4-el): 72.2 % SV(MOD-sp4): 57.5 ml SV(sp4-el): 59.3 ml LA A4 area: 20.7 cm2 LA dimension(2D): 3.9 cm RA A4 area: 14.6 cm2 Doppler Measurements & Calculations MV E max trip: 97.5 cm/sec Lat Peak E' Trip: 8.8 cm/sec Med Peak E' Trip: 7.2 cm/sec MV A max trip: 103.3 cm/sec E/E' lat: 11.0 E/E' med: 13.5 MV E/A: 0.94 Ao V2 max: 223.6 cm/sec LV V1 max: 160.0 cm/sec SV(LVOT): 110.1 ml Ao max P.0 mmHg LV V1 max P.2 mmHg Ao V2 mean: 147.6 cm/sec LV V1 mean P.5 mmHg Ao mean P.8 mmHg LV V1 mean: 112.0 cm/sec Ao V2 VTI: 44.9 cm LV V1 VTI: 34.2 cm PEG(I,D): 2.4 cm2 PEG(V,D): 2.3 cm2 PA V2 max: 124.6 cm/sec TR max rtip: 285.6 cm/sec TR max P.6 mmHg Interpretation Summary Left ventricular systolic function is normal. The estimated ejection fraction is 65 %. The left atrium is mildly enlarged. Mild (1+) eccentric mitral valve insufficiency. Trivial tricuspid valve insufficiency. Aortic sclerosis, no stenosis. Calcified aortic root. Right ventricular systolic pressure estimated to be 36 mmHg. Diastolic function is indeterminate. Ordering Physician: Jordy Eagle Referring Physician: [facility] Performed By: Roxanne Gonzalez, TIFFANIE, RVT
[2018-07-25 01:16] LABS: Bedside Glucose 159 mg/dL (70-110)
[2018-07-25 03:53] LABS: Anion Gap 9 (5-15); BUN 9 mg/dL (7-18); BUN/Creat Ratio 9.6 RATIO (10-20); Calcium,Total 8.2 mg/dL (8.5-10.1); Chloride 104 mmol/L (98-107); Creatinine, Serum 0.94 mg/dL (0.70-1.30); EST Glomerular Filtration Rate 85 mL/min (>60); Est Glom Filt Rate - Afr Amer 103 mL/min (>60); Estimated Creatinine Clearance 72.27 ml/min; Glucose 142 mg/dL (74-106); Potassium 4.1 mmol/L (3.5-5.1); Sodium Level 141 mmol/L (136-145)
[2018-07-25 07:00] LABS: Bedside Glucose 163 mg/dL (70-110)
[2018-07-25] MEDS: Budesonide Respules 0.5 MG/2 ML AMPUL.NEB. INHALATION ×2 (07:14→20:00)
[2018-07-25] MEDS: Ipratropium/Albuterol Sulfate 3 ML AMPUL.NEB INHALATION ×3 (07:15→20:00)
--- NOTE | 2018-07-25 08:54 | CT_ITS ---
STUDY: CTA CHEST REASON FOR EXAM: Male, 68 years old. Worsening shortness of breath, cough, COPD. RADIATION DOSAGE (If Supplied By Facility): CTDIvol = ( 14.24 ) mGy, DLP = ( 747.97 ) mGycm TECHNIQUE: The examination was performed with the intravenous administration of 100mL ml of Isovue 370 contrast material. Post-processing of the angiographic images was performed, with multiplanar reformation and 3D reconstruction. Individualized dose optimization techniques were used for this CT. COMPARISON: None. FINDINGS: Normal enhancement of the main pulmonary artery and right and left pulmonary arteries. There is limited enhancement of the bilateral peripheral pulmonary arteries. There is no demonstrated pulmonary embolism. Normal thoracic aorta and visualized great vessels. There is no demonstrated aortic dissection. There are calcifications of the coronary arteries. Normal mediastinum. Normal hilar regions. Normal visualized trachea and bronchi. The lungs are well expanded. Diffuse centrilobular emphysematous changes are present. Normal pleura. Normal chest wall structures. Normal osseous structures. Normal visualized upper abdomen. CT/CTA Chest W/WO Contrast IMPRESSION: 1. No evidence of pulmonary embolism or aortic dissection. No evidence of acute cardiopulmonary process with noted diffuse COPD related changes. Electronically Signed: Duy Ireland DO at 10:21 EST , Service support ,
[2018-07-25] MEDS: hydroCHLOROthiazide 12.5mg 12.5 MG PO (10:13)
[2018-07-25] MEDS: Clopidogrel Bisulfate 75 MG Tablet PO (10:13)
[2018-07-25] MEDS: Omega-3 Acid Ethyl Esters 1 GM Capsule 2 GM PO ×2 (10:13→21:53)
[2018-07-25] MEDS: Multivitamins,Therapeutic Tablet 1 TABLET PO (10:13)
[2018-07-25] MEDS: Enoxaparin 40 MG/0.4 ML Syringe SC (10:13)
[2018-07-25] MEDS: Tamsulosin HCl 0.4 MG Capsule PO (10:13)
[2018-07-25] MEDS: glipiZIDE 5 MG Tablet PO ×2 (10:13→16:26)
[2018-07-25] MEDS: Losartan Potassium 100 MG Tablet PO (10:13)
[2018-07-25] MEDS: Gabapentin 100 MG Capsule 200 MG PO (10:14)
[2018-07-25] MEDS: Metoprolol Tartrate 25 MG Tablet PO ×2 (10:14→21:52)
[2018-07-25] MEDS: Fluticasone 0.05% 1 SPRAY NASAL.SRY NASAL (10:14)
[2018-07-25] MEDS: Pantoprazole Sodium 20 MG Tablet PO (10:17)
[2018-07-25 11:40] LABS: Bedside Glucose 174 mg/dL (70-110)
--- NOTE | 2018-07-25 11:51 | PCM.PN.HOSP ---
Patient Problems: Active and Suspected Problems (Last Reviewed 07/25/18 @ 06:42 by Jordy Eagle MD) Pulmonary HTN (Suspected) Subjective: Patient was admitted overnight with a complaint of progressively worsening shortness of breath with exertion. He had assisted fatigue and shakiness. He also had a chronic cough which is productive of white sputum. He had no assisted chest pain or swelling in his lower extremities. Of note, patient was admitted and discharged just a few days ago for chest pain. Troponins x3 were negative then he had a stress test which was negative. 2D echo is pending. Patient seen and examined. Still complains of mild shortness of breath. He denies any palpitations or dizziness, any chest pain, any abdominal pain, any diarrhea or vomiting. 12 point review of systems is otherwise negative. Labs and vitals reviewed. Vitals/I&O's: Vital Signs Temp Pulse Resp BP Pulse Ox 98.0 F 94 18 161/82 H 97 07/25/18 10:09 07/25/18 10:14 07/25/18 10:09 07/25/18 10:14 07/25/18 10:09 Oxygen Flow Rate (L/min) 3 Oxygen Delivery Method Room Air Weight: 235 lb 0.204 oz Body Mass Index (BMI) 36.8 Intake and Output for Last 24 Hours 07/23/18 07/24/18 07/25/18 23:59 23:59 23:59 Intake Total 240 / 240 Output Total 850 / 850 350 / 350 Balance -850 / -850 -110 / -110 General: Alert, Oriented x3, Cooperative HEENT: Atraumatic, PERRLA, EOMI, Normocephalic Oral: Moist Mucosa Neck: Supple, No JVD, Negative Carotid Bruits Lungs: Clear to auscultation, Normal air movement, No rhonchi, No wheeze, No rales Cardiovascular: Regular rate, Regular Rhythm, Normal S1, Normal S2, No murmurs Abdomen: Bowel Sounds Present, Soft, Non Tender, Non-Distended, No Hepato-splenomegaly Extremities: No clubbing, No cyanosis, Capillary Refill Less than 3 Seconds, - - mild 1+ bilateral LE pitting pedal edema Skin: No rashes, No breakdown Musculoskeletal: No Tenderness to Palpation of Joints or Extremities Lymphatic: No Cervical, Supraclavicular, or Inguinal Adenopathy Neurological: Cranial nerves II-XII grossly intact Psych/Mental Status: Normal Affect, Appropriate, Alert and oriented to time, place, person, mood and affect Microbiology Past 72 Hours 07/25/18 04:39 Mucosa - Nasopharyngeal Respiratory Panel (PCR) - Final Laboratory Results 07/24/18 18:35: WBC 7.1, RBC 3.31 L, Hgb 9.3 L, Hct 29.5 L, MCV 89.1, MCH 28.1, MCHC 31.5 L, RDW 14.7 H, RDW Differential 47.6 H, Plt Count 211, MPV 8.5, Immature Gran % (Auto) 0.400, Neut % (Auto) 73.5 H, Lymph % (Auto) 17.6 L, [place] % (Auto) 7.1, Eos % (Auto) 1.3, Baso % (Auto) 0.1, Absolute Neuts (auto) 5.2, Absolute Lymphs (auto) 1.25, Total Counted Not Reportable 07/24/18 18:35: D-Dimer Quant (PE/DVT) 0.29 07/24/18 18:35: Sodium 135 L, Potassium 3.6, Chloride 100, Carbon Dioxide 24.0, Anion Gap 11, BUN 12, Creatinine 1.17, Estim Creat Clear Calc 58.07, Est GFR (MDRD) Af Amer 80, Est GFR (MDRD) Non-Af 66, BUN/Creatinine Ratio 10.3, Glucose 163 H, Calcium 8.7, Troponin I < 0.015 07/24/18 18:35: B-Natriuretic Peptide 49.9 07/25/18 00:42: Troponin I < 0.015, TSH 1.80 07/25/18 01:02: POC Glucose 159 H 07/25/18 03:30: Sodium 141, Potassium 4.1, Chloride 104, Carbon Dioxide 28.0, Anion Gap 9, BUN 9, Creatinine 0.94, Estim Creat Clear Calc 72.27, Est GFR (MDRD) Af Amer 103, Est GFR (MDRD) Non-Af 85, BUN/Creatinine Ratio 9.6 L, Glucose 142 H, Calcium 8.2 L 07/25/18 06:52: POC Glucose 163 H 07/25/18 11:37: POC Glucose 174 H Diagnostic Data Testicular Ultrasound 07/24/18 18:13 IMPRESSION: Normal bilateral testicles with normal Doppler flow. Bilateral large complex hydroceles with septations. Bilateral subcentimeter epididymal cysts. Electronically Signed: Skyler Escudero, at 20:54 EST Tel , Service support , Chest X-Ray 07/24/18 20:30 IMPRESSION: Degenerative changes, as described above. No demonstrated acute cardiopulmonary process. Electronically Signed: Sharon Pastrana MD at 21:19 EST Tel , Service support , Chest CTA 07/25/18 08:54 IMPRESSION: 1. No evidence of pulmonary embolism or aortic dissection. No evidence of acute cardiopulmonary process with noted diffuse COPD related changes. Electronically Signed: Duy Ireland DO at 10:21 EST , Service support , Current Medications Acetaminophen (Tylenol) 650 mg PO Q6H PRN PRN PRN Reason: Mild Pain (1-3)/Temp > 100.7 F Albuterol Sulfate (Ventolin Aerosols) 2.5 mg INHALATION Q2H PRN PRN PRN Reason: SOB &/OR WHEEZING Albuterol/Ipratropium (Duoneb) 3 ml INHALATION Q6HWA.RT [facility] Last Admin: 07/25/18 07:15 Dose: 3 ml Aspirin (Ecotrin) 81 mg PO DINNER RAGHU Atorvastatin Calcium (Lipitor) 40 mg PO QHS RAGHU Budesonide (Pulmicort Aerosol) 0.5 mg INHALATION Q12H.RT [facility] Last Admin: 07/25/18 07:14 Dose: 0.5 mg Cholecalciferol (Vitamin D) 2,000 unit PO DAILY [facility] Last Admin: 07/25/18 10:14 Dose: 2,000 unit Clopidogrel Bisulfate (Plavix) 75 mg PO DAILY [facility] Last Admin: 07/25/18 10:13 Dose: 75 mg Clotrimazole (Lotrimin) 1 applicatio TOPICAL BID PRN PRN; Protocol PRN Reason: ITCHING Dextrose (D50w Syringe) 0 gm IV X1 PRN; Protocol PRN Reason: Hypoglycemia Enoxaparin Sodium (Lovenox) 40 mg SC DAILY@1000 [facility] Last Admin: 07/25/18 10:13 Dose: 40 mg Fluticasone Propionate (Flonase Nasal [place]) 1 spray NASAL DAILY [facility] Last Admin: 07/25/18 10:14 Dose: 1 spray [facility] ([facility]) [facility] Last Admin: 07/25/18 10:14 Dose: 200 mg Gabapentin (Neurontin) 100 mg PO QHS [facility] Glipizide (Gl[facility]otrol) [facility] Last Admin: 07/25/18 10:13 Dose: 5 mg Glucagon () 1 mg IM .X1 PRN PRN Reason: Hypoglycemia Hydrochlorothiazide () 12.5 mg PO DAILY [facility] Last Admin: 07/25/18 10:13 Dose: 12.5 mg Insulin Human Lispro (Humalog Kwikpen (Bkc)) 0 unit SQ ACHS [facility]; Protocol Last Admin: 07/25/18 10:14 Dose: Not Given Labetalol HCl (Trandate) 10 mg IV Q4H PRN PRN PRN Reason: SBP > 160 Loratadine (Claritin) 10 mg PO DAILY PRN PRN Reason: ALLERGIES Losartan Potassium (Cozaar) 100 mg PO DAILY [facility] Last Admin: 07/25/18 10:13 Dose: 100 mg Magnesium Hydroxide (Milk Of Magnesia) 30 ml PO DAILY PRN PRN Reason: Constipation Metoprolol Tartrate (Lopressor (Beta Vidya)) 25 mg PO BID [facility] Last Admin: 07/25/18 10:14 Dose: 25 mg Montelukast Sodium (Singulair) 10 mg PO DAILY@2200 [facility] Multivitamins (Multivitamin) [facility] tablet [facility] Last Admin: 07/25/18 10:13 Dose: 1 tablet Multivitamins (Allbee W/C Caplet, Thera B Comp/C) 1 capsule PO MoWeFr@1000 [facility] Last Admin: 07/25/18 01:32 Dose: Not Given Naproxen (Naprosyn) 500 mg PO BID PRN PRN PRN Reason: PAIN [id number] Ethyl Esters (Lovaza) 2 gm PO BID [facility] Last Admin: 07/25/18 10:13 Dose: 2 gm Pantoprazole Sodium (Protonix) 20 mg PO DAILY [facility] Last Admin: 07/25/18 10:17 Dose: 20 mg Potassium Chloride (K-Dur) 40 meq PO DINNER [facility] Sodium Chloride () 5 - 15 ml IV UD PRN PRN Reason: SALINE FLUSH Tamsulosin HCl (Flomax) 0.4 mg PO DAILY [facility] Last Admin: 07/25/18 10:13 Dose: 0.4 mg Medical Necessity - Tobacco Use Smoking Status: Former smoker Assessment/Plan All Active Problems (Last Reviewed 07/25/18 @ 06:42 by Jordy Eagle MD) Hypokalemia (Resolved) S/P PTCA (percutaneous transluminal coronary angioplasty) (Acute) Stable angina (Resolved) 1. Acute hypoxic respiratory insufficiency possibly due to COPD and CAD admitted with a complaint of worsening shortness of breath has CAD s/p stents. Was recently admitted and discharged after he presented with chest pain and stress test was negative. Also has history of COPD. CT angiogram done this morning ruled out a PE but showed chronic COPD changes. Currently on 3 L of oxygen by nasal cannula. Baseline is not on oxygen. 2D echo pending. Troponins were negative during this admission as well. on breathing treatments; titrate oxygen to maintain sats >92% 2. CAD s./p stents: on aspirin, plavix and statin 3. COPD: on breathing treatments. 4. Hypertension Blood pressure remains in the 150s and 160s. On hydrochlorothiazide and metoprolol. Nifedipine discharge and admission on account of probable heart failure. Also on losartan. As needed labetalol. 5. Diabetes mellitus: On glipizide. Metformin on hold on account of possibility of cardiac cath. Insulin sliding scale. Accu-Cheks AC at bedtime. 6. History of epididymal cyst: Testicular ultrasound showed bilateral hydrocele. Urology consulted. 7. Tinea pedis; on clotrimazole 8. Peripheral neuropathy: on neurontin 9. history of iron deficiency anemia hemoglobin is 9.3. [facility] States he has been worked up multiple times with colonoscopies but no source found. Does not tolerate iron well so not on iron supplementation. Will monitor hemoglobin. DVT prophylaxis: heparin Code Visit Inpatient E&M: 11760 Subs Hosp L3
--- NOTE | 2018-07-25 11:56 | PN_ITS ---
Patient Problems: Active and Suspected Problems (Last Reviewed 07/25/18 @ 06:42 by Jordy Eagle MD) Pulmonary HTN (Suspected) Subjective: Patient was admitted overnight with a complaint of progressively worsening shortness of breath with exertion. He had assisted fatigue and shakiness. He also had a chronic cough which is productive of white sputum. He had no assisted chest pain or swelling in his lower extremities. Of note, patient was admitted and discharged just a few days ago for chest pain. Troponins x3 were negative then he had a stress test which was negative. 2D echo is pending. Patient seen and examined. Still complains of mild shortness of breath. He denies any palpitations or dizziness, any chest pain, any abdominal pain, any diarrhea or vomiting. 12 point review of systems is otherwise negative. Labs and vitals reviewed. Vitals/I&O's: Vital Signs Temp Pulse Resp BP Pulse Ox 98.0 F 94 18 161/82 H 97 07/25/18 10:09 07/25/18 10:14 07/25/18 10:09 07/25/18 10:14 07/25/18 10:09 Oxygen Flow Rate (L/min) 3 Oxygen Delivery Method Room Air Weight: 235 lb 0.204 oz Body Mass Index (BMI) 36.8 Intake and Output for Last 24 Hours 07/23/18 07/24/18 07/25/18 23:59 23:59 23:59 Intake Total 240 / 240 Output Total 850 / 850 350 / 350 Balance -850 / -850 -110 / -110 General: Alert, Oriented x3, Cooperative HEENT: Atraumatic, PERRLA, EOMI, Normocephalic Oral: Moist Mucosa Neck: Supple, No JVD, Negative Carotid Bruits Lungs: Clear to auscultation, Normal air movement, No rhonchi, No wheeze, No rales Cardiovascular: Regular rate, Regular Rhythm, Normal S1, Normal S2, No murmurs Abdomen: Bowel Sounds Present, Soft, Non Tender, Non-Distended, No Hepato- splenomegaly Extremities: No clubbing, No cyanosis, Capillary Refill Less than 3 Seconds, - - mild 1+ bilateral LE pitting pedal edema Skin: No rashes, No breakdown Musculoskeletal: No Tenderness to Palpation of Joints or Extremities Lymphatic: No Cervical, Supraclavicular, or Inguinal Adenopathy Neurological: Cranial nerves II-XII grossly intact Psych/Mental Status: Normal Affect, Appropriate, Alert and oriented to time, place, person, mood and affect Microbiology Past 72 Hours 07/25/18 04:39 Mucosa - Nasopharyngeal Respiratory Panel (PCR) - Final Laboratory Results 07/24/18 18:35: WBC 7.1, RBC 3.31 L, Hgb 9.3 L, Hct 29.5 L, MCV 89.1, MCH 28.1, MCHC 31.5 L, RDW 14.7 H, RDW Differential 47.6 H, Plt Count 211, MPV 8.5, Immature Gran % (Auto) 0.400, Neut % (Auto) 73.5 H, Lymph % (Auto) 17.6 L, [place] % (Auto) 7.1, Eos % (Auto) 1.3, Baso % (Auto) 0.1, Absolute Neuts (auto) 5.2, Absolute Lymphs (auto) 1.25, Total Counted Not Reportable 07/24/18 18:35: D-Dimer Quant (PE/DVT) 0.29 07/24/18 18:35: Sodium 135 L, Potassium 3.6, Chloride 100, Carbon Dioxide 24.0, Anion Gap 11, BUN 12, Creatinine 1.17, Estim Creat Clear Calc 58.07, Est GFR (MDRD) Af Amer 80, Est GFR (MDRD) Non-Af 66, BUN/Creatinine Ratio 10.3, Glucose 163 H, Calcium 8.7, Troponin I < 0.015 07/24/18 18:35: B-Natriuretic Peptide 49.9 07/25/18 00:42: Troponin I < 0.015, TSH 1.80 07/25/18 01:02: POC Glucose 159 H 07/25/18 03:30: Sodium 141, Potassium 4.1, Chloride 104, Carbon Dioxide 28.0, Anion Gap 9, BUN 9, Creatinine 0.94, Estim Creat Clear Calc 72.27, Est GFR (MDRD) Af Amer 103, Est GFR (MDRD) Non-Af 85, BUN/Creatinine Ratio 9.6 L, Glucose 142 H, Calcium 8.2 L 07/25/18 06:52: POC Glucose 163 H 07/25/18 11:37: POC Glucose 174 H Diagnostic Data Testicular Ultrasound 07/24/18 18:13 IMPRESSION: Normal bilateral testicles with normal Doppler flow. Bilateral large complex hydroceles with septations. Bilateral subcentimeter epididymal cysts. Electronically Signed: Skyler Escudero, at 20:54 EST Tel , Service support , Chest X-Ray 07/24/18 20:30 IMPRESSION: Degenerative changes, as described above. No demonstrated acute cardiopulmonary process. Electronically Signed: Sharon Pastrana MD at 21:19 EST Tel , Service support , Chest CTA 07/25/18 08:54 IMPRESSION: 1. No evidence of pulmonary embolism or aortic dissection. No evidence of acute cardiopulmonary process with noted diffuse COPD related changes. Electronically Signed: Duy Ireland DO at 10:21 EST , Service support , Current Medications Acetaminophen (Tylenol) 650 mg PO Q6H PRN PRN PRN Reason: Mild Pain (1-3)/Temp > 100.7 F Albuterol Sulfate (Ventolin Aerosols) 2.5 mg INHALATION Q2H PRN PRN PRN Reason: SOB &/OR WHEEZING Albuterol/Ipratropium (Duoneb) 3 ml INHALATION Q6HWA.RT [facility] Last Admin: 07/25/18 07:15 Dose: 3 ml Aspirin (Ecotrin) 81 mg PO DINNER RAGHU Atorvastatin Calcium (Lipitor) 40 mg PO QHS RAGHU Budesonide (Pulmicort Aerosol) 0.5 mg INHALATION Q12H.RT [facility] Last Admin: 07/25/18 07:14 Dose: 0.5 mg Cholecalciferol (Vitamin D) 2,000 unit PO DAILY [facility] Last Admin: 07/25/18 10:14 Dose: 2,000 unit Clopidogrel Bisulfate (Plavix) 75 mg PO DAILY [facility] Last Admin: 07/25/18 10:13 Dose: 75 mg Clotrimazole (Lotrimin) 1 applicatio TOPICAL BID PRN PRN; Protocol PRN Reason: ITCHING Dextrose (D50w Syringe) 0 gm IV X1 PRN; Protocol PRN Reason: Hypoglycemia Enoxaparin Sodium (Lovenox) 40 mg SC DAILY@1000 [facility] Last Admin: 07/25/18 10:13 Dose: 40 mg Fluticasone Propionate (Flonase Nasal [place]) 1 spray NASAL DAILY [facility] Last Admin: 07/25/18 10:14 Dose: 1 spray [facility]) [facility] Last Admin: 07/25/18 10:14 Dose: 200 mg Gabapentin (Neurontin) 100 mg PO QHS [facility] Glip[facility]ide [facility]) [facility] Last Admin: 07/25/18 10:13 Dose: 5 mg Glucagon () 1 mg IM .X1 PRN PRN Reason: Hypoglycemia Hydrochlorothiazide () 12.5 mg PO DAILY [facility] Last Admin: 07/25/18 10:13 Dose: 12.5 mg Insulin Human Lispro (Humalog Kwikpen (Bkc)) 0 unit SQ ACHS [facility]; Protocol Last Admin: 07/25/18 10:14 Dose: Not Given Labetalol HCl (Trandate) 10 mg IV Q4H PRN PRN PRN Reason: SBP > 160 Loratadine (Claritin) 10 mg PO DAILY PRN PRN Reason: ALLERGIES Losartan Potassium (Cozaar) 100 mg PO DAILY [facility] Last Admin: 07/25/18 10:13 Dose: 100 mg Magnesium Hydroxide (Milk Of Magnesia) 30 ml PO DAILY PRN PRN Reason: Constipation Metoprolol Tartrate (Lopressor (Beta Vidya)) 25 mg PO BID [facility] Last Admin: 07/25/18 10:14 Dose: 25 mg Montelukast Sodium (Singulair) 10 mg PO DAILY@2200 [facility] Multivitamins (Multivitamin) [facility] Last Admin: 07/25/18 10:13 Dose: 1 tablet Multivitamins (Allbee W/C Caplet, Thera B Comp/C) 1 capsule PO MoWeFr@1000 [facility] Last Admin: 07/25/18 01:32 Dose: Not Given Naproxen (Naprosyn) 500 mg PO BID PRN PRN PRN Reason: PAIN [id number] Ethyl Esters (Lovaza) 2 gm PO BID [facility] Last Admin: 07/25/18 10:13 Dose: 2 gm Pantoprazole Sodium (Protonix) 20 mg PO DAILY [facility] Last Admin: 07/25/18 10:17 Dose: 20 mg Potassium Chloride (K-Dur) 40 meq PO DINNER [facility] Sodium Chloride () 5 - 15 ml IV UD PRN PRN Reason: SALINE FLUSH Tamsulosin HCl (Flomax) 0.4 mg PO DAILY [facility] Last Admin: 07/25/18 10:13 Dose: 0.4 mg Medical Necessity - Tobacco Use Smoking Status: Former smoker Assessment/Plan All Active Problems (Last Reviewed 07/25/18 @ 06:42 by Jordy Eagle MD) Hypokalemia (Resolved) S/P PTCA (percutaneous transluminal coronary angioplasty) (Acute) Stable angina (Resolved) 1. Acute hypoxic respiratory insufficiency possibly due to COPD and CAD * admitted with a complaint of worsening shortness of breath * has CAD s/p stents. Was recently admitted and discharged after he presented with chest pain and stress test was negative. * Also has history of COPD. * CT angiogram done this morning ruled out a PE but showed chronic COPD changes. * Currently on 3 L of oxygen by nasal cannula. Baseline is not on oxygen. * 2D echo pending. * Troponins were negative during this admission as well. * on breathing treatments; titrate oxygen to maintain sats >92% * 2. CAD s./p stents: on aspirin, plavix and statin 3. COPD: on breathing treatments. 4. Hypertension * Blood pressure remains in the 150s and 160s. On hydrochlorothiazide and metoprolol. Nifedipine discharge and admission on account of probable heart failure. Also on losartan. As needed labetalol. * 5. Diabetes mellitus: On glipizide. Metformin on hold on account of possibility of cardiac cath. Insulin sliding scale. Accu-Cheks AC at bedtime. 6. History of epididymal cyst: Testicular ultrasound showed bilateral h ydrocele. Urology consulted. 7. Tinea pedis; on clotrimazole 8. Peripheral neuropathy: on neurontin 9. history of iron deficiency anemia * hemoglobin is 9.3. [facility] * States he has been worked up multiple times with colonoscopies but no source found. * Does not tolerate iron well so not on iron supplementation. * Will monitor hemoglobin. * DVT prophylaxis: heparin Code Visit Inpatient E&M: 44336 [facility] L[facility]
[2018-07-25] MEDS: amLODIPine 5 MG Tablet PO (15:01)
--- NOTE | 2018-07-25 15:02 | PCM.CONS.C ---
Problem List (1) Dyspnea Status: Acute Qualifiers: Dyspnea type: dyspnea on exertion Qualified Code(s): R06.09 - Other forms of dyspnea (2) CAD (coronary artery disease) Status: Chronic Qualifiers: Coronary Disease-Associated Artery/Lesion type: w[place]ot artery [place] vs. transplanted heart: wiyot heart (3) S/P PTCA (percutaneous transluminal coronary angioplasty) Status: Chronic (4) Pulmonary HTN Status: Suspected (5) COPD (chronic obstructive pulmonary disease) Status: Chronic Qualifiers: COPD type: unspecified COPD Qualified Code(s): J44.9 - Chronic obstructive pulmonary disease, unspecified (6) ELISHA (obstructive sleep apnea) Status: Chronic (7) Hyperlipemia Status: Chronic Qualifiers: Hyperlipidemia type: unspecified Qualified Code(s): E78.5 - Hyperlipidemia, unspecified (8) Essential hypertension Status: Chronic (9) Type 2 diabetes mellitus Status: Chronic Reason for Consult Date of Consultation: 07/25/18 History of Present Illness: The patient is a 68 year old White male with a past medical history of hyperlipidemia, hypertension, diabetes mellitus, COPD, obstructive sleep apnea, pulmonary hypertension, CAD, status post RCA PCI, who presents for evaluation of dyspnea on exertion. The patient has been progressively getting more and more dyspneic with exertional activity including minimal exertional activity. He has denied orthopnea or PND or worsening peripheral pitting edema. He states with his dysrhythmia he does have a form of chest discomfort. He has not had associated nausea, emesis, or diaphoresis. There has been no loss of consciousness. He was recently evaluated at the hospital with an overnight stay which included a exercise tolerance test/imaging study. This was a pharmacologic stress nuclear imaging study. This was considered to be a negative examination and has myocardial perfusion appearing to be within normal limits. He has gated LVEF was reported at 70%. He was released home. However based upon is progressive symptoms his brought him back to the hospital for reassessment. He underwent further evaluation at the emergency department with chest x-ray and chest CT scan. These were considered negative for acute findings and negative for great vessel disease and negative for thromboembolic disease. He was placed in the hospital for further evaluation. His troponin I levels have been negative. His ECG is demonstrated sinus rhythm with no acute ECG changes. He does state he is being followed by the [facility] and his application security specialist for a pulmonary nodules. He states through the [facility] he is having followup radiologic studies performed periodically. He also notes he has a history of anemia. He states through the [facility] he has undergone endoscopy procedures which have been unrevealing. She does not recall ever having a bone marrow aspirate/biopsy procedure. [] Past Medical History Allergies/Adverse Reactions: Allergies doxycycline Allergy (Severe, Verified 07/24/18 17:41) Rash empagliflozin [From Jardiance] Adverse Reaction (Severe, Verified 07/24/18 17:41) yeast infection Home Medications: Ambulatory Orders Medication Instructions Recorded Albuterol IH (ProAir) [Proair Hfa] 2 puff INHALATION Q4H PRN PRN 06/24/15 Atorvastatin Calcium [Lipitor] 40 mg PO QHS 06/24/15 Budesonide/Formoterol 160/4.5 2 puff INHALATION BID 06/24/15 [Symbicort 160/4.5 Mcg Inhaler (SP)] Loratadine [Claritin] 10 mg PO DAILY PRN 06/24/15 Metformin HCl [Glucophage] 1,000 mg PO BIDCM 06/24/15 Metoprolol Tartrate [Lopressor 25 mg PO BID 06/24/15 (beta jd)] Montelukast Sodium [Singulair] 10 mg PO DAILY 06/24/15 Tolnaftate [Tinactin] 1 applic TP PRN PRN 06/24/15 Valsartan [Diovan] 320 mg PO DAILY 06/24/15 albuterol sulfate 2.5 mg/3 mL 1.25 mg INHALATION Q4H PRN 04/14/18 (0.083 %) solution for nebulization cholecalciferol (vitamin D3) 2,000 2,000 unit PO DAILY 04/14/18 unit tablet clotrimazole 1 % topical cream 1 applic TOPICAL BID PRN 04/14/18 fluticasone 50 mcg/actuation nasal 1 spray INTRANASAL DAILY 04/14/18 spray,suspension gabapentin 100 mg capsule 100 mg PO QHS cap 04/14/18 glipizide 5 mg tablet 5 mg PO BID tab 04/14/18 multivitamin tablet 1 tab PO DAILY 04/14/18 naproxen 500 mg tablet 500 mg PO BID PRN 04/14/18 nifedipine ER 90 mg 90 mg PO DAILY 04/14/18 tablet,extended release omega-3 fatty acids 1,000 mg 2,000 mg PO BID cap 04/14/18 capsule omeprazole 20 mg tablet,delayed 20 mg PO DAILY 04/14/18 release roflumilast 500 mcg tablet 500 mcg PO DAILY 04/14/18 tamsulosin 0.4 mg capsule 0.4 mg PO DAILY 04/14/18 tiotropium bromide 2.5 2 puff INHALATION DAILY 04/14/18 mcg/actuation mist for inhalation vitamin B complex tablet 1 tab PO MOWEFR tab 04/14/18 Aspirin E.C. [Ecotrin] 81 mg PO DAILY 07/22/18 Clopidogrel Bisulfate [Plavix] 75 mg PO DAILY 07/22/18 Hydrochlorothiazide [Hctz] 12.5 mg PO DAILY 07/22/18 Potassium Chloride [K-Tab ER] 40 meq PO DAILY 07/22/18 Nitroglycerin 0.4 mg SL PRN PRN #30 tab.subl 07/23/18 Gabapentin [Neurontin] 200 mg PO DAILY 07/25/18 Past Medical History (Chronic Problems): Chronic Problems (Last Reviewed 07/25/18 @ 06:42 by Jordy Eagle MD) S/P PTCA (percutaneous transluminal coronary angioplasty) (Chronic) CAD (coronary artery disease) (Chronic) ELISHA (obstructive sleep apnea) (Chronic) Atherosclerotic heart disease of wiyot coronary artery without angina pectoris (Chronic) Mild Hyperlipemia (Chronic) Type 2 diabetes mellitus (Chronic) Essential hypertension (Chronic) COPD (chronic obstructive pulmonary disease) (Chronic) Surgical History: angioplasty - *Family History Maternal Family History: Family History (Last Reviewed 07/25/18 @ 06:42 by Jordy Eagle MD) Father COPD (chronic obstructive pulmonary disease) Heart disease Mother CAD (coronary artery disease) Myocardial infarction CVA (cerebral vascular accident) Diabetes Brother CAD (coronary artery disease) Pacemaker Diabetes History of coronary artery bypass surgery Brother Brain aneurysm Lives: Spouse/ Significant Other Smoking Status: Former smoker Alcohol: None Drugs: None Review of Systems - Review of Systems General: Denies: Fever, Night Sweats, Fatigue Cardiovascular: Reports: Chest Discomfort, Shortness of Breath, Shortness of Breath with Exertion. Denies: Orthopnea, PND, Peripheral Edema, Palpitations, Lightheadedness, Dizziness, Near Syncope, Syncope Respiratory: Reports: Shortness of Breath. Denies: Cough, Sputum Production, Hemoptysis Gastrointestinal: Denies: Hematemesis, Hematochezia, Melena Genitourinary: Denies: Dysuria, Hematuria Skin: Denies: Rash Objective: Vital Signs Temp Pulse Resp BP Pulse Ox 98.0 F 74 18 178/82 H 97 07/25/18 10:09 07/25/18 14:59 07/25/18 13:18 07/25/18 14:59 07/25/18 10:09 Oxygen Flow Rate (L/min) 3 Oxygen Delivery Method Room Air Weight: 235 lb 0.204 oz Body Mass Index (BMI) 36.8 Intake and Output for Last 24 Hours 07/23/18 07/24/18 07/25/18 23:59 23:59 23:59 Intake Total 540 / 540 Output Total 850 / 850 750 / 750 Balance -850 / -850 -210 / -210 07/24/18 18:35: WBC 7.1, RBC 3.31 L, Hgb 9.3 L, Hct 29.5 L, MCV 89.1, MCH 28.1, MCHC 31.5 L, RDW 14.7 H, RDW Differential 47.6 H, Plt Count 211, MPV 8.5, Immature Gran % (Auto) 0.400, Neut % (Auto) 73.5 H, Lymph % (Auto) 17.6 L, [place] % (Auto) 7.1, Eos % (Auto) 1.3, Baso % (Auto) 0.1, Absolute Neuts (auto) 5.2, Total Counted Not Reportable 07/24/18 18:35: D-Dimer Quant (PE/DVT) 0.29 07/24/18 18:35: Sodium 135 L, Potassium 3.6, Chloride 100, Carbon Dioxide 24.0, Anion Gap 11, BUN 12, Creatinine 1.17, Est GFR (MDRD) Af Amer 80, Est GFR (MDRD) Non-Af 66, BUN/Creatinine Ratio 10.3, Glucose 163 H, Calcium 8.7, Troponin I < 0.015 07/24/18 18:35: B-Natriuretic Peptide 49.9 07/25/18 00:42: Troponin I < 0.015 07/25/18 03:30: Sodium 141, Potassium 4.1, Chloride 104, Carbon Dioxide 28.0, Anion Gap 9, BUN 9, Creatinine 0.94, Est GFR (MDRD) Af Amer 103, Est GFR (MDRD) Non-Af 85, BUN/Creatinine Ratio 9.6 L, Glucose 142 H, Calcium 8.2 L Rhythm:Sinus rhythm EKG:Sinus rhythm ECHO:04/17/2018: Left ventricle: Normal with an LVEF of 60% and mild MR; aortic valve sclerosis; trivial CA; calcified aortic root; diastolic dysfunction considered indeterminate Stress Test:07/23/2018, and pharmacologic stress nuclear imaging study: Considered demonstrate myocardial perfusion within normal limits with an LVEF of 75% Cardiac Cath:05/01/2018: Conclusions: Right heart pressures moderately elevated; pulmonary hypertension which is moderate; intracardiac shunting-none; elevated left ventricular end-diastolic pressure; normal left ventricle with an LVEF of 65%; left main with mild calcification; proximal LAD with mild calcification and mild luminal irregularity; LCx appearing debris angiographically normal; intermediate ramus appearing angiographically normal; RCA with mild calcification with proximal 85% stenosis followed by mid 25% stenosis PCI:05/01/2018: Successful PTCA/D S of the proximal RCA CXR:As noted above Chest CT Scan:As noted above Assessment/Plan 1. Dyspnea on exertion The patient has progressive dyspnea on exertion. He states it is getting worse. His notes he becomes more and more limited with his activity. He has undergone previous noninvasive and invasive cardiovascular evaluation as described. However there maybe concern as to whether or not this is an angina pectoris equivalent and he has a false negative pharmacologic stress nuclear imaging study. Thus with no other obvious etiology to explain it at this time he may need to be considered for repeat diagnostic cardiac catheterization. If this is unremarkable then consideration may be given as to what element of his dyspnea on exertion is referred to his concerns of anemia as well as his underlying pulmonary disease process and pulmonary hypertension. 2. CAD status post RCA PCI The patient will continue to be followed. He will continue medical management is deemed appropriate. He will be considered for a repeat diagnostic cardiac catheterization as noted above. 3. Pulmonary hypertension The patient does have a history of underlying pulmonary hypertension. This may be secondary to a history of COPD and obstructive sleep apnea. This may be contributing to his shortness of breath and dyspnea. He will need continued pulmonary evaluation and care. 4. COPD The patient does have a history of COPD. He does follow up with a application security specialist-Dr. Tavarez. 5. Obstructive sleep apnea The patient also has a history of obstructive sleep apnea. Again he will need to continue to follow with his application security specialist for this. 6. Hyperlipidemia He will continue risk factor modification and medical management. 7. Hypertension His blood pressure is noted to be elevated. His medications will be adjusted. 8. Diabetes mellitus He will continue evaluation care per internal medicine. Comment: The patient's case was discussed I reviewed with the patient, spouse, and previously with the [facility] emergency department staff. This note was generated using a voice recognition system and there may be incorrect words, spelling or punctuation that were not noted when reviewing the office note prior to saving.
--- NOTE | 2018-07-25 15:06 | CON.PCM_ITS ---
Problem List (1) Dyspnea Status: Acute Qualifiers: Dyspnea type: dyspnea on exertion Qualified Code(s): R06.09 - Other forms of dyspnea (2) CAD (coronary artery disease) Status: Chronic Qualifiers: Coronary Disease-Associated Artery/Lesion type: eek artery [place] vs. transplanted heart: eek heart (3) S/P PTCA (percutaneous transluminal coronary angioplasty) Status: Chronic (4) Pulmonary HTN Status: Suspected (5) COPD (chronic obstructive pulmonary disease) Status: Chronic Qualifiers: COPD type: unspecified COPD Qualified Code(s): J44.9 - Chronic obstructive pulmonary disease, unspecified (6) ELISHA (obstructive sleep apnea) Status: Chronic (7) Hyperlipemia Status: Chronic Qualifiers: Hyperlipidemia type: unspecified Qualified Code(s): E78.5 - Hyperlipidemia, unspecified (8) Essential hypertension Status: Chronic (9) Type 2 diabetes mellitus Status: Chronic Reason for Consult Date of Consultation: 07/25/18 History of Present Illness: The patient is a 68 year old White male with a past medical history of hyperlipidemia, hypertension, diabetes mellitus, COPD, obstructive sleep apnea, pulmonary hypertension, CAD, status post RCA PCI, who presents for evaluation of dyspnea on exertion. The patient has been progressively getting more and more dyspneic with exertional activity including minimal exertional activity. He has denied orthopnea or PND or worsening peripheral pitting edema. He states with his dysrhythmia he does have a form of chest discomfort. He has not had associated nausea, emesis, or diaphoresis. There has been no loss of consciousness. He was recently evaluated at the hospital with an overnight stay which included a exercise tolerance test/imaging study. This was a pharmacologic stress nuclear imaging study. This was considered to be a negative examination and has myocardial perfusion appearing to be within normal limits. He has gated LVEF was reported at 70%. He was released home. However based upon is progressive symptoms his brought him back to the hospital for reassessment. He underwent further evaluation at the emergency dep artment with chest x-ray and chest CT scan. These were considered negative for acute findings and negative for great vessel disease and negative for thromboembolic disease. He was placed in the hospital for further evaluation. His troponin I levels have been negative. His ECG is demonstrated sinus rhythm with no acute ECG changes. He does state he is being followed by the [facility] and his flake miller wheat and oats for a pulmonary nodules. He states through the [facility] he is having followup radiologic studies performed periodically. He also notes he has a history of anemia. He states through the [facility] he has u ndergone endoscopy procedures which have been unrevealing. She does not recall ever having a bone marrow aspirate/biopsy procedure. [] Past Medical History Allergies/Adverse Reactions: Allergies doxycycline Allergy (Severe, Verified 07/24/18 17:41) Rash empagliflozin [From Jardiance] Adverse Reaction (Severe, Verified 07/24/18 17:41) yeast infection Home Medications: Ambulatory Orders Medication Instructions Recorded Albuterol IH (ProAir) [Proair Hfa] 2 puff INHALATION Q4H PRN PRN 06/24/15 Atorvastatin Calcium [Lipitor] 40 mg PO QHS 06/24/15 Budesonide/Formoterol 160/4.5 2 puff INHALATION BID 06/24/15 [Symbicort 160/4.5 Mcg Inhaler (SP)] Loratadine [Claritin] 10 mg PO DAILY PRN 06/24/15 Metformin HCl [Glucophage] 1,000 mg PO BIDCM 06/24/15 Metoprolol Tartrate [Lopressor 25 mg PO BID 06/24/15 (beta jd)] Montelukast Sodium [Singulair] 10 mg PO DAILY 06/24/15 Tolnaftate [Tinactin] 1 applic TP PRN PRN 06/24/15 Valsartan [Diovan] 320 mg PO DAILY 06/24/15 albuterol sulfate 2.5 mg/3 mL 1.25 mg INHALATION Q4H PRN 04/14/18 (0.083 %) solution for nebulization cholecalciferol (vitamin D3) 2,000 2,000 unit PO DAILY 04/14/18 unit tablet clotrimazole 1 % topical cream 1 applic TOPICAL BID PRN 04/14/18 fluticasone 50 mcg/actuation nasal 1 spray INTRANASAL DAILY 04/14/18 spray,suspension gabapentin 100 mg capsule 100 mg PO QHS cap 04/14/18 glipizide 5 mg tablet 5 mg PO BID tab 04/14/18 multivitamin tablet 1 tab PO DAILY 04/14/18 naproxen 500 mg tablet 500 mg PO BID PRN 04/14/18 nifedipine ER 90 mg 90 mg PO DAILY 04/14/18 tablet,extended release omega-3 fatty acids 1,000 mg 2,000 mg PO BID cap 04/14/18 capsule omeprazole 20 mg tablet,delayed 20 mg PO DAILY 04/14/18 release roflumilast 500 mcg tablet 500 mcg PO DAILY 04/14/18 tamsulosin 0.4 mg capsule 0.4 mg PO DAILY 04/14/18 tiotropium bromide 2.5 2 puff INHALATION DAILY 04/14/18 mcg/actuation mist for inhalation vitamin B complex tablet 1 tab PO MOWEFR tab 04/14/18 Aspirin E.C. [Ecotrin] 81 mg PO DAILY 07/22/18 Clopidogrel Bisulfate [Plavix] 75 mg PO DAILY 07/22/18 Hydrochlorothiazide [Hctz] 12.5 mg PO DAILY 07/22/18 Potassium Chloride [K-Tab ER] 40 meq PO DAILY 07/22/18 Nitroglycerin 0.4 mg SL PRN PRN #30 tab.subl 07/23/18 Gabapentin [Neurontin] 200 mg PO DAILY 07/25/18 Past Medical History (Chronic Problems): Chronic Problems (Last Reviewed 07/25/18 @ 06:42 by Jordy Eagle MD) S/P PTCA (percutaneous transluminal coronary angioplasty) (Chronic) CAD (coronary artery disease) (Chronic) ELISHA (obstructive sleep apnea) (Chronic) Atherosclerotic heart disease of eek coronary artery without angina pectoris (Chronic) Mild Hyperlipemia (Chronic) Type 2 diabetes mellitus (Chronic) Essential hypertension (Chronic) COPD (chronic obstructive pulmonary disease) (Chronic) Surgical History: angioplasty - *Family History Maternal Family History: Family History (Last Reviewed 07/25/18 @ 06:42 by Jordy Eagle MD) Father COPD (chronic obstructive pulmonary disease) Heart disease Mother CAD (coronary artery disease) Myocardial infarction CVA (cerebral vascular accident) Diabetes Brother CAD (coronary artery disease) Pacemaker Diabetes History of coronary artery bypass surgery Brother Brain aneurysm Lives: Spouse/ Significant Other Smoking Status: Former smoker Alcohol: None Drugs: None Review of Systems - Review of Systems General: Denies: Fever, Night Sweats, Fatigue Cardiovascular: Reports: Chest Discomfort, Shortness of Breath, Shortness of Breath with Exertion. Denies: Orthopnea, PND, Peripheral Edema, Palpitations, Lightheadedness, Dizziness, Near Syncope, Syncope Respiratory: Reports: Shortness of Breath. Denies: Cough, Sputum Production, Hemoptysis Gastrointestinal: Denies: Hematemesis, Hematochezia, Melena Genitourinary: Denies: Dysuria, Hematuria Skin: Denies: Rash Objective: Vital Signs Temp Pulse Resp BP Pulse Ox 98.0 F 74 18 178/82 H 97 07/25/18 10:09 07/25/18 14:59 07/25/18 13:18 07/25/18 14:59 07/25/18 10:09 Oxygen Flow Rate (L/min) 3 Oxygen Delivery Method Room Air Weight: 235 lb 0.204 oz Body Mass Index (BMI) 36.8 Intake and Output for Last 24 Hours 07/23/18 07/24/18 07/25/18 23:59 23:59 23:59 Intake Total 540 / 540 Output Total 850 / 850 750 / 750 Balance -850 / -850 -210 / -210 07/24/18 18:35: WBC 7.1, RBC 3.31 L, Hgb 9.3 L, Hct 29.5 L, MCV 89.1, MCH 28.1, MCHC 31.5 L, RDW 14.7 H, RDW Differential 47.6 H, Plt Count 211, MPV 8.5, Immature Gran % (Auto) 0.400, Neut % (Auto) 73.5 H, Lymph % (Auto) 17.6 L, [place] % (Auto) 7.1, Eos % (Auto) 1.3, Baso % (Auto) 0.1, Absolute Neuts (auto) 5.2, Total Counted Not Reportable 07/24/18 18:35: D-Dimer Quant (PE/DVT) 0.29 07/24/18 18:35: Sodium 135 L, Potassium 3.6, Chloride 100, Carbon Dioxide 24.0, Anion Gap 11, BUN 12, Creatinine 1.17, Est GFR (MDRD) Af Amer 80, Est GFR (MDRD) Non-Af 66, BUN/Creatinine Ratio 10.3, Glucose 163 H, Calcium 8.7, Troponin I < 0.015 07/24/18 18:35: B-Natriuretic Peptide 49.9 07/25/18 00:42: Troponin I < 0.015 07/25/18 03:30: Sodium 141, Potassium 4.1, Chloride 104, Carbon Dioxide 28.0, Anion Gap 9, BUN 9, Creatinine 0.94, Est GFR (MDRD) Af Amer 103, Est GFR (MDRD) Non-Af 85, BUN/Creatinine Ratio 9.6 L, Glucose 142 H, Calcium 8.2 L Rhythm:Sinus rhythm EKG:Sinus rhythm ECHO:04/17/2018: Left ventricle: Normal with an LVEF of 60% and mild MR; aortic valve sclerosis; trivial [place]; calcified aortic root; diastolic dysfunction considered indeterminate Stress Test:07/23/2018, and pharmacologic stress nuclear imaging study: Considered demonstrate myocardial perfusion within normal limits with an LVEF of 75% Cardiac Cath:05/01/2018: Conclusions: Right heart pressures moderately elevated; pulmonary hypertension which is moderate; intracardiac shunting-none; elevated left ventricular end-diastolic pressure; normal left ventricle with an LVEF of 65%; left main with mild calcification; proximal LAD with mild calcification and mild luminal irregularity; LCx appearing debris angiographically normal; interm ediate ramus appearing angiographically normal; RCA with mild calcification with proximal 85% stenosis followed by mid 25% stenosis PCI:05/01/2018: Successful PTCA/D S of the proximal RCA CXR:As noted above Chest CT Scan:As noted above Assessment/Plan 1. Dyspnea on exertion The patient has progressive dyspnea on exertion. He states it is getting worse. His notes he becomes more and more limited with his activity. He has undergone previous noninvasive and invasive cardiovascular evaluation as described. However there maybe concern as to whether or not this is an angina pectoris equivalent and he has a false negative pharmacologic stress nuclear imaging study. Thus with no other obvious etiology to explain it at this time he may need to be considered for repeat diagnostic cardiac catheterization. If this is unremarkable then consideration may be given as to what element of his dyspnea on exertion is referred to his concerns of anemia as well as his underlying pulmonary disease process and pulmonary hypertension. 2. CAD status post RCA PCI The patient will continue to be followed. He will continue medical management is deemed appropriate. He will be considered for a repeat diagnostic cardiac catheterization as noted above. 3. Pulmonary hypertension The patient does have a history of underlying pulmonary hypertension. This may be secondary to a history of COPD and obstructive sleep apnea. This may be contributing to his shortness of breath and dyspnea. He will need continued pulmonary evaluation and care. 4. COPD The patient does have a history of COPD. He does follow up with a flake miller wheat and oats- Dr. Tavarez. 5. Obstructive sleep apnea The patient also has a history of obstructive sleep apnea. Again he will need to continue to follow with his flake miller wheat and oats for this. 6. Hyperlipidemia He will continue risk factor modification and medical management. 7. Hypertension His blood pressure is noted to be elevated. His medications will be adjusted. 8. Diabetes mellitus He will continue evaluation care per internal medicine. Comment: The patient's case was discussed I reviewed with the patient, spouse, and previously with the [facility] emergency department staff. This note was generated using a voice recognition system and there may be incorrect words, spelling or punctuation that were not noted when reviewing the office note prior to saving.
[2018-07-25] MEDS: Labetalol 20 MG/4 ML Vial 10 MG IV ×2 (16:26→20:39)
[2018-07-25] MEDS: Aspirin E.C. 81 MG Tablet PO (16:26)
[2018-07-25] MEDS: 0.9% NaCl Peripheral Flush Adult/Peds IV ×4 (16:27→20:50)
[2018-07-25 17:11] LABS: Bedside Glucose 111 mg/dL (70-110)
[2018-07-25] MEDS: Metoprolol Tartrate 5 MG/5 ML Vial 2.5 MG IV (18:47)
[2018-07-25] MEDS: ROFLUMILAST 500 MCG TABLET PO (21:50)
[2018-07-25] MEDS: Atorvastatin Calcium 40 MG Tablet PO (21:52)
[2018-07-25] MEDS: Gabapentin 100 MG Capsule PO (21:53)
[2018-07-25] MEDS: Montelukast 10 MG Tablet PO (21:53)
[2018-07-26] VITALS (20 sets, daily range): BP systolic 151–179; BP diastolic 69–92; PULSE 59–105; RESP 12–18; TEMP 36.4–36.8; O2SAT 93–100
[2018-07-26 00:20] LABS: Bedside Glucose 150 mg/dL (70-110)
--- NOTE | 2018-07-26 05:55 | EKG12_ITS ---
Test Reason : AM EKG Blood Pressure : / mmHG Vent. Rate : 062 BPM Atrial Rate : 062 BPM P-R Int : 154 ms QRS Dur : 092 ms QT Int : 424 ms P-R-T Axes : 072 070 069 degrees QTc Int : 430 ms Normal sinus rhythm Normal ECG When compared with ECG of 25-JUL-2018 00:30, MANUAL COMPARISON REQUIRED, DATA IS UNCONFIRMED Confirmed by JAYY SIMMS, ALONZO ([id number]), editorial assistant JAYLYN CHENG ([id number]) on 07/28/2018 5:31:38 PM Referred By: DR POOL Confirmed By:ALONZO HOPE MD
[2018-07-26 06:56] LABS: Bedside Glucose 160 mg/dL (70-110)
[2018-07-26 07:33] LABS: Absolute Lymphocyte Count 1.15 X10^3/ul (0.83-4.51); Absolute Neutrophil Count 3.5 X10^3/uL (2.0-7.7); Basophil# 0.03 X10^3/uL; Basophil% 0.6 % (0-1); Eosinophil# 0.08 X10^3/uL; Eosinophils% 1.6 % (0-5); Hematocrit 27.9 % (40-54); Hemoglobin 8.7 g/dl (13.0-16.5); Lymphocyte # 1.15 X10^3/ul (4.0); Lymphocyte % 22.4 % (19-41); Mean Corp Hgb Conc 31.2 g/gl (32-36); Mean Corpuscular Hgb 27.9 pg (27.0-32.0); Mean Corpuscular Volume 89.4 fL (80-94); Monocyte# 0.39 X10^3/uL; Monocyte% 7.6 % (0-10); Neutrophil # 3.47 X10^3/uL (2.7-7.7); Neutrophil % 67.6 % (47-70); Platelet Count 198 K/mm3 (150-450); RBC Distribution Width CV 14.7 % (11.6-14.6); RBC Distribution Width SD 47.9 fl (35.1-43.9); Red Blood Count 3.12 M/mm3 (4.6-6.2); White Blood Count 5.1 K/mm3 (4.4-11.0)
[2018-07-26] MEDS: Ipratropium/Albuterol Sulfate 3 ML AMPUL.NEB INHALATION ×3 (07:34→20:17)
[2018-07-26] MEDS: Budesonide Respules 0.5 MG/2 ML AMPUL.NEB. INHALATION ×2 (07:34→20:17)
[2018-07-26 07:35] LABS: POSITIVE COUNT NO; POSITIVE DIFFERENTIAL NO; POSITIVE MORPHOLOGY NO
[2018-07-26 08:09] LABS: Anion Gap 11 (5-15); BUN 12 mg/dL (7-18); BUN/Creat Ratio 12.6 RATIO (10-20); Calcium,Total 8.6 mg/dL (8.5-10.1); Chloride 100 mmol/L (98-107); Creatinine, Serum 0.95 mg/dL (0.70-1.30); EST Glomerular Filtration Rate 84 mL/min (>60); Est Glom Filt Rate - Afr Amer 102 mL/min (>60); Estimated Creatinine Clearance 71.51 ml/min; Glucose 153 mg/dL (74-106); Potassium 4.2 mmol/L (3.5-5.1); Sodium Level 135 mmol/L (136-145)
[2018-07-26] MEDS: Fluticasone 0.05% 1 SPRAY NASAL.SRY NASAL (09:18)
[2018-07-26] MEDS: hydroCHLOROthiazide 12.5mg 12.5 MG PO (09:19)
[2018-07-26] MEDS: Metoprolol Tartrate 25 MG Tablet PO (09:19)
[2018-07-26] MEDS: amLODIPine 5 MG Tablet PO (09:19)
[2018-07-26] MEDS: Losartan Potassium 100 MG Tablet PO (09:20)
[2018-07-26] MEDS: Multivitamins,Therapeutic Tablet 1 TABLET PO (09:20)
[2018-07-26] MEDS: glipiZIDE 5 MG Tablet PO (09:20)
[2018-07-26] MEDS: Clopidogrel Bisulfate 75 MG Tablet PO (09:20)
[2018-07-26] MEDS: Gabapentin 100 MG Capsule 200 MG PO (09:20)
[2018-07-26] MEDS: Omega-3 Acid Ethyl Esters 1 GM Capsule 2 GM PO ×2 (09:20→21:44)
[2018-07-26] MEDS: Tamsulosin HCl 0.4 MG Capsule PO (09:20)
[2018-07-26] MEDS: Pantoprazole Sodium 20 MG Tablet PO (09:21)
--- NOTE | 2018-07-26 09:35 | PCM.CONS.U ---
Problem List (1) Hydrocele Status: Acute Qualifiers: Hydrocele type: encysted Qualified Code(s): N43.0 - Encysted hydrocele (2) Hydrocele, bilateral Status: Acute Reason for Consult Date of Consultation: 07/26/18 Reason for Consultation: Patient was admitted to the hospital for shortness of breath was found also have bilateral hydroceles have been consulted to see him regarding these History of Present Illness: The patient is a 68 year old male admitted to the hospital for shortness of breath was also found to have bilateral complex hydroceles on ultrasound no testicular masses. Hydroceles are soft enlarged but nontender on examination patient does notice that the other day when getting out of shower this both testicles are getting larger Past Medical History Past Medical History (Chronic Problems): Chronic Problems (Last Reviewed 07/25/18 @ 06:42 by Jordy Eagle MD) S/P PTCA (percutaneous transluminal coronary angioplasty) (Chronic) CAD (coronary artery disease) (Chronic) ELISHA (obstructive sleep apnea) (Chronic) Atherosclerotic heart disease of [place] coronary artery without angina pectoris (Chronic) Mild Hyperlipemia (Chronic) Type 2 diabetes mellitus (Chronic) Essential hypertension (Chronic) COPD (chronic obstructive pulmonary disease) (Chronic) Medical History: Medical History (Last Reviewed 07/26/18 @ 09:36 by Donny Ramsey MD) ELISHA (obstructive sleep apnea) (Chronic) G47.33 Atherosclerotic heart disease of [place] coronary artery without angina pectoris (Chronic) I25.10 Mild Hyperlipemia (Chronic) E78.5 Type 2 diabetes mellitus (Chronic) E11.9 Essential hypertension (Chronic) I10 COPD (chronic obstructive pulmonary disease) (Chronic) J44.9 Alcoholism F10.20 CAD (coronary artery disease) I25.10 Lung nodule, multiple R91.8 Allergies doxycycline Allergy (Severe, Verified 07/24/18 17:41) Rash empagliflozin [From Jardiance] Adverse Reaction (Severe, Verified 07/24/18 17:41) yeast infection Home Medications: Ambulatory Orders Medication Instructions Recorded Albuterol IH (ProAir) [Proair Hfa] 2 puff INHALATION Q4H PRN PRN 06/24/15 Atorvastatin Calcium [Lipitor] 40 mg PO QHS 06/24/15 Budesonide/Formoterol 160/4.5 2 puff INHALATION BID 06/24/15 [Symbicort 160/4.5 Mcg Inhaler (SP)] Loratadine [Claritin] 10 mg PO DAILY PRN 06/24/15 Metformin HCl [Glucophage] 1,000 mg PO BIDCM 06/24/15 Metoprolol Tartrate [Lopressor 25 mg PO BID 06/24/15 (beta jd)] Montelukast Sodium [Singulair] 10 mg PO DAILY 06/24/15 Tolnaftate [Tinactin] 1 applic TP PRN PRN 06/24/15 Valsartan [Diovan] 320 mg PO DAILY 06/24/15 albuterol sulfate 2.5 mg/3 mL 1.25 mg INHALATION Q4H PRN 04/14/18 (0.083 %) solution for nebulization cholecalciferol (vitamin D3) 2,000 2,000 unit PO DAILY 04/14/18 unit tablet clotrimazole 1 % topical cream 1 applic TOPICAL BID PRN 04/14/18 fluticasone 50 mcg/actuation nasal 1 spray INTRANASAL DAILY 04/14/18 spray,suspension gabapentin 100 mg capsule 100 mg PO QHS cap 04/14/18 glipizide 5 mg tablet 5 mg PO BID tab 04/14/18 multivitamin tablet 1 tab PO DAILY 04/14/18 naproxen 500 mg tablet 500 mg PO BID PRN 04/14/18 nifedipine ER 90 mg 90 mg PO DAILY 04/14/18 tablet,extended release omega-3 fatty acids 1,000 mg 2,000 mg PO BID cap 04/14/18 capsule omeprazole 20 mg tablet,delayed 20 mg PO DAILY 04/14/18 release roflumilast 500 mcg tablet 500 mcg PO DAILY 04/14/18 tamsulosin 0.4 mg capsule 0.4 mg PO DAILY 04/14/18 tiotropium bromide 2.5 2 puff INHALATION DAILY 04/14/18 mcg/actuation mist for inhalation vitamin B complex tablet 1 tab PO MOWEFR tab 04/14/18 Aspirin E.C. [Ecotrin] 81 mg PO DAILY 07/22/18 Clopidogrel Bisulfate [Plavix] 75 mg PO DAILY 07/22/18 Hydrochlorothiazide [Hctz] 12.5 mg PO DAILY 07/22/18 Potassium Chloride [K-Tab ER] 40 meq PO DAILY 01/09/19 Nitroglycerin 0.4 mg SL PRN PRN #30 tab.subl 07/23/18 Gabapentin [Neurontin] 200 mg PO DAILY 07/25/18 Surgical History: Surgical History (Last Reviewed 07/26/18 @ 09:36 by Donny Ramsey MD) History of cardiac catheterization Z98.890 07/30/10 History of hip replacement Z96.649 1984, revision 2010, repair of hip socket 1980 Surgical History: angioplasty Lives: Spouse/ Significant Other Smoking Status: Former smoker Alcohol: None Drugs: None - *Family History Maternal Family History: Family History (Last Reviewed 07/26/18 @ 09:36 by Donny Ramsey MD) Father COPD (chronic obstructive pulmonary disease) Heart disease Mother CAD (coronary artery disease) Myocardial infarction CVA (cerebral vascular accident) Diabetes Brother CAD (coronary artery disease) Pacemaker Diabetes History of coronary artery bypass surgery Brother Brain aneurysm Review of Systems Constitutional: Denies: Chills, Fever, Weight Change HEENT: Denies: Head Aches, Sinus Congestion, Sinus Drainage Cardiovascular: Denies: Chest Pain, Palpitations Respiratory: Reports: Shortness of Breath. Denies: Cough, Shortness of breath at rest, Sputum production Gastrointestinal: Denies: Abdominal Pain, Nausea, Vomiting Genitourinary: Denies: Dysuria Musculoskeletal: Denies: Joint Pain, Joint Tenderness Skin: Denies: Rash, Wounds Neurological: Denies: Numbness, Tingling, Focal weakness Psychiatric: Denies: Anxiety, Depression, Homicidal Ideations, Suicidal Ideations Hematologic/ Lymphatic: Denies: Easy Bruising, Easy Bleeding Physical Exam - Physical Exam Vital Signs Temp 98.2 F 07/26/18 09:12 Pulse 70 07/26/18 09:19 Resp 16 07/26/18 09:12 BP 173/80 H 07/26/18 09:19 Pulse Ox 93 07/26/18 09:12 Intake & Output 07/24/18 07/25/18 07/26/18 23:59 23:59 23:59 Intake Total 2340 / 2340 0 / 0 Output Total 850 / 850 2695 / 2695 350 / 350 Balance -850 / -850 -355 / -355 -350 / -350 Weight: 110.495 kg 106.6 kg Intake: Oral 2340 / 2340 0 / 0 IV fluid/meds 0 / 0 0 / 0 Output: Urine 850 / 850 2695 / 2695 350 / 350 General: Alert, Oriented x3 HEENT: Atraumatic Oral: Moist Mucosa Neck: Supple Lungs: No rhonchi Cardiovascular: Regular rate Abdomen: Soft Testicle: Right Hydrocele, Left Hydrocele Penis: Circumcised Musculoskeletal: No Tenderness to Palpation of Joints or Extremities Lymphatic: No Cervical, Supraclavicular, or Inguinal Adenopathy Psych/Mental Status: Normal Affect, Appropriate Microbiology Past 72 Hours 07/25/18 04:39 Respiratory Panel (PCR) - Final Mucosa - Nasopharyngeal Laboratory Tests Past 24 Hrs 07/26/18 07/26/18 06:49 06:49 WBC 5.1 RBC 3.12 L Hgb 8.7 L Hct 27.9 L MCV 89.4 MCH 27.9 MCHC 31.2 L RDW 14.7 H RDW Differential 47.9 H Plt Count 198 MPV 9.0 Immature Gran % (Auto) 0.200 Neut % (Auto) 67.6 Lymph % (Auto) 22.4 [place] % (Auto) 7.6 Eos % (Auto) 1.6 Baso % (Auto) 0.6 Absolute Neuts (auto) 3.5 Absolute Lymphs (auto) 1.15 Total Counted Not Reportable Sodium 135 L Potassium 4.2 Chloride 100 Carbon Dioxide 24.0 Anion Gap 11 BUN 12 Creatinine 0.95 Estim Creat Clear Calc 71.51 Est GFR (MDRD) Af Amer 102 Est GFR (MDRD) Non-Af 84 BUN/Creatinine Ratio 12.6 Glucose 153 H Calcium 8.6 Assessment/Plan All Active Problems (Last Reviewed 07/25/18 @ 06:42 by Jordy Eagle MD) Hypokalemia (Resolved) Stable angina (Resolved) Dyspnea (Acute) Hydrocele (Acute) Hydrocele, bilateral (Acute) 68-year-old male with stable large bilateral hydroceles either complex. For now do not recommend any surgical intervention he certainly follow-up in my office after discharge to the hospital for further evaluation at this hydroceles go away or become stable probably would recommend observation if the hydroceles get larger or bothersome we could proceed with elective hydrocelectomy at a later date. Call me with questions
[2018-07-26] MEDS: Labetalol 20 MG/4 ML Vial 10 MG IV ×2 (11:19→15:35)
[2018-07-26] MEDS: 0.9% NaCl Peripheral Flush Adult/Peds IV ×3 (11:19→21:00)
--- NOTE | 2018-07-26 11:59 | PCM.PN.HOSP ---
Patient Problems: Active and Suspected Problems (Last Reviewed 07/26/18 @ 09:36 by Donny Ramsey MD) Pulmonary HTN (Suspected) Dyspnea (Acute) Hydrocele (Acute) Hydrocele, bilateral (Acute) Subjective: Patient seen and examined. He has no complaints. Shortness of breath has improved. He denies any fever chills, any palpitations, any dizziness, any chest pain, any abdominal pain, any diarrhea vomiting. Review of systems otherwise negative. He is scheduled to have a cardiac cath tomorrow. Vitals/I&O's: Vital Signs Temp Pulse Resp BP Pulse Ox 98.2 F 70 16 173/80 H 93 07/26/18 09:12 07/26/18 09:19 07/26/18 09:12 07/26/18 09:19 07/26/18 09:12 Oxygen Flow Rate (L/min) 3 Oxygen Delivery Method Room Air Weight: 235 lb 0.204 oz Body Mass Index (BMI) 36.8 Intake and Output for Last 24 Hours 07/24/18 07/25/18 07/26/18 23:59 23:59 23:59 Intake Total 2340 / 2340 0 / 0 Output Total 850 / 850 2695 / 2695 350 / 350 Balance -850 / -850 -355 / -355 -350 / -350 General: Alert, Oriented x3, Cooperative HEENT: Atraumatic, PERRLA, EOMI, Normocephalic Oral: Moist Mucosa Neck: Supple, No JVD, Negative Carotid Bruits Lungs: Clear to auscultation, Normal air movement, No rhonchi, No wheeze, No rales Cardiovascular: Regular rate, Regular Rhythm, Normal S1, Normal S2, No murmurs Abdomen: Bowel Sounds Present, Soft, Non Tender, Non-Distended, No Hepato-splenomegaly Extremities: No clubbing, No cyanosis, Capillary Refill Less than 3 Seconds, - - mild 1+ bilateral LE pitting pedal edema Skin: No rashes, No breakdown Musculoskeletal: No Tenderness to Palpation of Joints or Extremities Lymphatic: No Cervical, Supraclavicular, or Inguinal Adenopathy Neurological: Cranial nerves II-XII grossly intact Psych/Mental Status: Normal Affect, Appropriate, Alert and oriented to time, place, person, mood and affect Microbiology Past 72 Hours 07/25/18 04:39 Mucosa - Nasopharyngeal Respiratory Panel (PCR) - Final Laboratory Results 07/25/18 16:17: POC Glucose 111 H 07/25/18 21:48: POC Glucose 150 H 07/26/18 06:43: POC Glucose 160 H 07/26/18 06:49: WBC 5.1, RBC 3.12 L, Hgb 8.7 L, Hct 27.9 L, MCV 89.4, MCH 27.9, MCHC 31.2 L, RDW 14.7 H, RDW Differential 47.9 H, Plt Count 198, MPV 9.0, Immature Gran % (Auto) 0.200, Neut % (Auto) 67.6, Lymph % (Auto) 22.4, [place] % (Auto) 7.6, Eos % (Auto) 1.6, Baso % (Auto) 0.6, Absolute Neuts (auto) 3.5, Absolute Lymphs (auto) 1.15, Total Counted Not Reportable 07/26/18 06:49: Sodium 135 L, Potassium 4.2, Chloride 100, Carbon Dioxide 24.0, Anion Gap 11, BUN 12, Creatinine 0.95, Estim Creat Clear Calc 71.51, Est GFR (MDRD) Af Amer 102, Est GFR (MDRD) Non-Af 84, BUN/Creatinine Ratio 12.6, Glucose 153 H, Calcium 8.6 Current Medications Acetaminophen (Tylenol) 650 mg PO Q6H PRN PRN PRN Reason: Mild Pain (1-3)/Temp > 100.7 F Albuterol Sulfate (Ventolin Aerosols) 2.5 mg INHALATION Q2H PRN PRN PRN Reason: SOB &/OR WHEEZING Albuterol/Ipratropium (Duoneb) 3 ml INHALATION Q6HWA.RT [facility] Last Admin: 07/26/18 07:34 Dose: 3 ml Amlodipine Besylate (Norvasc) 5 mg PO DAILY [facility] Last Admin: 07/26/18 09:19 Dose: 5 mg Aspirin (Ecotrin) 81 mg PO DINNER [facility] Last Admin: 07/25/18 16:26 Dose: 81 mg Atorvastatin Calcium (Lipitor) 40 mg PO QHS [facility] Last Admin: 07/25/18 21:52 Dose: 40 mg Budesonide (Pulmicort Aerosol) 0.5 mg INHALATION Q12H.RT [facility] Last Admin: 07/26/18 07:34 Dose: 0.5 mg Cholecalciferol (Vitamin D) 2,000 unit PO DAILY [facility] Last Admin: 07/26/18 09:20 Dose: 2,000 unit Clopidogrel Bisulfate (Plavix) 75 mg PO DAILY [facility] Last Admin: 07/26/18 09:20 Dose: 75 mg Clotrimazole (Lotrimin) 1 applicatio TOPICAL BID PRN PRN; Protocol PRN Reason: ITCHING Dextrose (D50w Syringe) 0 gm IV X1 PRN; Protocol PRN Reason: Hypoglycemia Enoxaparin Sodium (Lovenox) 40 mg SC DAILY@1000 [facility] Last Admin: 07/26/18 09:21 Dose: Not Given Fluticasone Propionate (Flonase Nasal [place]) 1 spray NASAL DAILY [facility] Last Admin: 07/26/18 09:18 Dose: 1 spray [facility] Admin: 07/26/18 09:20 Dose: 200 mg Gabapentin (Neurontin) 100 mg PO QHS [facility] Last Admin: 07/25/18 21:53 Dose: 100 mg [facility] Last Admin: 07/26/18 09:20 Dose: 5 mg Glucagon () 1 mg IM .X1 PRN PRN Reason: Hypoglycemia Hydrochlorothiazide () 12.5 mg PO DAILY [facility] Last Admin: 07/26/18 09:19 Dose: 12.5 mg Sodium Chloride () 1,000 mls @ 0 mls/hr IV .Q0M [facility] Insulin Human Lispro (Humalog Kwikpen (Bkc)) 0 unit SQ ACHS [facility]; Protocol Last Admin: 07/26/18 08:31 Dose: Not Given Labetalol HCl (Trandate) 10 mg IV Q4H PRN PRN PRN Reason: SBP > 160 Last Admin: 07/26/18 11:19 Dose: 10 mg Loratadine (Claritin) 10 mg PO DAILY PRN PRN Reason: ALLERGIES Losartan Potassium (Cozaar) 100 mg PO DAILY [facility] Last Admin: 07/26/18 09:20 Dose: 100 mg Magnesium Hydroxide (Milk Of Magnesia) 30 ml PO DAILY PRN PRN Reason: Constipation Metoprolol Tartrate (Lopressor (Beta Vidya)) 25 mg PO BID [facility] Last Admin: 07/26/18 09:19 Dose: 25 mg Montelukast Sodium (Singulair) 10 mg PO DAILY@2200 [facility] Last Admin: 07/25/18 21:53 Dose: 10 mg Multivitamins (Multivitamin) 1 tablet PO DAILYCM [facility] Last Admin: 07/26/18 09:20 Dose: 1 tablet Multivitamins (Allbee W/C Caplet, Thera B Comp/C) 1 capsule PO MoWeFr@1000 [facility] Last Admin: 07/25/18 01:32 Dose: Not Given Naproxen (Naprosyn) 500 mg PO BID PRN PRN PRN Reason: PAIN [id number] Ethyl Esters (Lovaza) 2 gm PO BID [facility] Last Admin: 07/26/18 09:20 Dose: 2 gm Pantoprazole Sodium (Protonix) 20 mg PO DAILY [facility] Last Admin: 07/26/18 09:21 Dose: 20 mg Potassium Chloride (K-Dur) 40 meq PO DINNER [facility] Last Admin: 07/25/18 16:26 Dose: 40 meq Sodium Chloride () 5 - 15 ml IV UD PRN PRN Reason: SALINE FLUSH Last Admin: 07/26/18 11:19 Dose: 10 ml Tamsulosin HCl (Flomax) 0.4 mg PO DAILY [facility] Last Admin: 07/26/18 09:20 Dose: 0.4 mg Medical Necessity - Tobacco Use Smoking Status: Former smoker Assessment/Plan All Active Problems (Last Reviewed 07/26/18 @ 09:36 by Donny Ramsey MD) Hypokalemia (Resolved) Stable angina (Resolved) Dyspnea (Acute) Hydrocele (Acute) Hydrocele, bilateral (Acute) 1. Acute hypoxic respiratory insufficiency possibly due to COPD and CAD SOB is improving. On 3L of oxygen by nasal canula CTA ruled out PE but showed chronic COPD changes 2D echo done and is pending cardiology on board on breathing treatments for cardiac cath tomorrow; recent stress test was negative 2. CAD s./p stents: on aspirin, plavix and statin 3. COPD: on breathing treatments. 4. Hypertension Blood pressure remains in the 150s and 160s. On hydrochlorothiazide and metoprolol. Nifedipine stopped on admission on account of probable heart failure. Also on losartan. As needed labetalol. will increase metoprolol to 50mg bid. 5. Diabetes mellitus: On glipizide. Metformin on hold on account of possibility of cardiac cath. Insulin sliding scale. Accu-Cheks AC at bedtime. 6. History of epididymal cyst: Testicular ultrasound showed bilateral hydrocele. urology on board; advocate conservative management for now and outpatient follow up 7. Tinea pedis; on clotrimazole 8. Peripheral neuropathy: on neurontin 9. history of iron deficiency anemia hemoglobin is 8.7 today, was 9.3 yesterday. [facility] States he has been worked up multiple times with colonoscopies but no source found. Does not tolerate iron well so not on iron supplementation. Will monitor hemoglobin. check fecal occult blood DVT prophylaxis; SCDs Code Visit Inpatient E&M: 68567 Subs Hosp L3
--- NOTE | 2018-07-26 12:07 | PN_ITS ---
Patient Problems: Active and Suspected Problems (Last Reviewed 07/26/18 @ 09:36 by Donny Ramsey MD) Pulmonary HTN (Suspected) Dyspnea (Acute) Hydrocele (Acute) Hydrocele, bilateral (Acute) Subjective: Patient seen and examined. He has no complaints. Shortness of breath has improved. He denies any fever chills, any palpitations, any dizziness, any chest pain, any abdominal pain, any diarrhea vomiting. Review of systems otherwise negative. He is scheduled to have a cardiac cath tomorrow. Vitals/I&O's: Vital Signs Temp Pulse Resp BP Pulse Ox 98.2 F 70 16 173/80 H 93 07/26/18 09:12 07/26/18 09:19 07/26/18 09:12 07/26/18 09:19 07/26/18 09:12 Oxygen Flow Rate (L/min) 3 Oxygen Delivery Method Room Air Weight: 235 lb 0.204 oz Body Mass Index (BMI) 36.8 Intake and Output for Last 24 Hours 07/24/18 07/25/18 07/26/18 23:59 23:59 23:59 Intake Total 2340 / 2340 0 / 0 Output Total 850 / 850 2695 / 2695 350 / 350 Balance -850 / -850 -355 / -355 -350 / -350 General: Alert, Oriented x3, Cooperative HEENT: Atraumatic, PERRLA, EOMI, Normocephalic Oral: Moist Mucosa Neck: Supple, No JVD, Negative Carotid Bruits Lungs: Clear to auscultation, Normal air movement, No rhonchi, No wheeze, No rales Cardiovascular: Regular rate, Regular Rhythm, Normal S1, Normal S2, No murmurs Abdomen: Bowel Sounds Present, Soft, Non Tender, Non-Distended, No Hepato- splenomegaly Extremities: No clubbing, No cyanosis, Capillary Refill Less than 3 Seconds, - - mild 1+ bilateral LE pitting pedal edema Skin: No rashes, No breakdown Musculoskeletal: No Tenderness to Palpation of Joints or Extremities Lymphatic: No Cervical, Supraclavicular, or Inguinal Adenopathy Neurological: Cranial nerves II-XII grossly intact Psych/Mental Status: Normal Affect, Appropriate, Alert and oriented to time, place, person, mood and affect Microbiology Past 72 Hours 07/25/18 04:39 Mucosa - Nasopharyngeal Respiratory Panel (PCR) - Final Laboratory Results 07/25/18 16:17: POC Glucose 111 H 07/25/18 21:48: POC Glucose 150 H 07/26/18 06:43: POC Glucose 160 H 07/26/18 06:49: WBC 5.1, RBC 3.12 L, Hgb 8.7 L, Hct 27.9 L, MCV 89.4, MCH 27.9, MCHC 31.2 L, RDW 14.7 H, RDW Differential 47.9 H, Plt Count 198, MPV 9.0, Immature Gran % (Auto) 0.200, Neut % (Auto) 67.6, Lymph % (Auto) 22.4, [place] % (Auto) 7.6, Eos % (Auto) 1.6, Baso % (Auto) 0.6, Absolute Neuts (auto) 3.5, Absolute Lymphs (auto) 1.15, Total Counted Not Reportable 07/26/18 06:49: Sodium 135 L, Potassium 4.2, Chloride 100, Carbon Dioxide 24.0, Anion Gap 11, BUN 12, Creatinine 0.95, Estim Creat Clear Calc 71.51, Est GFR (MDRD) Af Amer 102, Est GFR (MDRD) Non-Af 84, BUN/Creatinine Ratio 12.6, Glucose 153 H, Calcium 8.6 Current Medications Acetaminophen (Tylenol) 650 mg PO Q6H PRN PRN PRN Reason: Mild Pain (1-3)/Temp > 100.7 F Albuterol Sulfate (Ventolin Aerosols) 2.5 mg INHALATION Q2H PRN PRN PRN Reason: SOB &/OR WHEEZING Albuterol/Ipratropium (Duoneb) 3 ml INHALATION Q6HWA.RT [facility] Last Admin: 07/26/18 07:34 Dose: 3 ml Amlodipine Besylate (Norvasc) 5 mg PO DAILY [facility] Last Admin: 07/26/18 09:19 Dose: 5 mg Aspirin (Ecotrin) 81 mg PO DINNER [facility] Last Admin: 07/25/18 16:26 Dose: 81 mg Atorvastatin Calcium (Lipitor) 40 mg PO QHS [facility] Last Admin: 07/25/18 21:52 Dose: 40 mg Budesonide (Pulmicort Aerosol) 0.5 mg INHALATION Q12H.RT [facility] Last Admin: 07/26/18 07:34 Dose: 0.5 mg Cholecalciferol (Vitamin D) 2,000 unit PO DAILY [facility] Last Admin: 07/26/18 09:20 Dose: 2,000 unit Clopidogrel Bisulfate (Plavix) 75 mg PO DAILY [facility] Last Admin: 07/26/18 09:20 Dose: 75 mg Clotrimazole (Lotrimin) 1 applicatio TOPICAL BID PRN PRN; Protocol PRN Reason: ITCHING Dextrose (D50w Syringe) 0 gm IV X1 PRN; Protocol PRN Reason: Hypoglycemia Enoxaparin Sodium (Lovenox) 40 mg SC DAILY@1000 [facility] Last Admin: 07/26/18 09:21 Dose: Not Given Fluticasone Propionate (Flonase Nasal [place]) 1 spray NASAL DAILY [facility] Last Admin: 07/26/18 09:18 Dose: 1 spray [facility]) [facility] Last Admin: 07/26/18 09:20 Dose: 200 mg Gabapentin (Neurontin) 100 mg PO QHS [facility] Last Admin: 07/25/18 21:53 Dose: 100 mg Glipizide (Glucotrol) [facility] Last Admin: 07/26/18 09:20 Dose: 5 mg Glucagon () 1 mg IM .X1 PRN PRN Reason: Hypoglycemia Hydrochlorothiazide () 12.5 mg PO DAILY [facility] Last Admin: 07/26/18 09:19 Dose: 12.5 mg Sodium Chloride () 1,000 mls @ 0 mls/hr IV .Q0M [facility] Insulin Human Lispro (Humalog Kwikpen (Bkc)) 0 unit SQ ACHS [facility]; Protocol Last Admin: 07/26/18 08:31 Dose: Not Given Labetalol HCl (Trandate) 10 mg IV Q4H PRN PRN PRN Reason: SBP > 160 Last Admin: 07/26/18 11:19 Dose: 10 mg Loratadine (Claritin) 10 mg PO DAILY PRN PRN Reason: ALLERGIES Losartan Potassium (Cozaar) 100 mg PO DAILY [facility] Last Admin: 07/26/18 09:20 Dose: 100 mg Magnesium Hydroxide (Milk Of Magnesia) 30 ml PO DAILY PRN PRN Reason: Constipation Metoprolol Tartrate (Lopressor (Beta Vidya)) 25 mg PO BID [facility] Last Admin: 07/26/18 09:19 Dose: 25 mg Montelukast Sodium (Singulair) 10 mg PO DAILY@2200 [facility] Last Admin: 07/25/18 21:53 Dose: 10 mg Multivitamins (Multivitamin) 1 tablet PO DAILYCM [facility] Last Admin: 07/26/18 09:20 Dose: 1 tablet Multivitamins (Allbee W/C Caplet, Thera B Comp/C) 1 capsule PO MoWeFr@1000 [facility] Last Admin: 07/25/18 01:32 Dose: Not Given Naproxen (Naprosyn) 500 mg PO BID PRN PRN PRN Reason: PAIN [place]uz-5-[place] Ethyl Esters (Lovaza) 2 gm PO BID [facility] Last Admin: 07/26/18 09:20 Dose: 2 gm Pantoprazole Sodium (Protonix) 20 mg PO DAILY [facility] Last Admin: 07/26/18 09:21 Dose: 20 mg Potassium Chloride (K-Dur) 40 meq PO DINNER [facility] Last Admin: 07/25/18 16:26 Dose: 40 meq Sodium Chloride () 5 - 15 ml IV UD PRN PRN Reason: SALINE FLUSH Last Admin: 07/26/18 11:19 Dose: 10 ml Tamsulosin HCl (Flomax) 0.4 mg PO DAILY [facility] Last Admin: 07/26/18 09:20 Dose: 0.4 mg Medical Necessity - Tobacco Use Smoking Status: Former smoker Assessment/Plan All Active Problems (Last Reviewed 07/26/18 @ 09:36 by Donny Ramsey MD) Hypokalemia (Resolved) Stable angina (Resolved) Dyspnea (Acute) Hydrocele (Acute) Hydrocele, bilateral (Acute) 1. Acute hypoxic respiratory insufficiency possibly due to COPD and CAD * SOB is improving. On 3L of oxygen by nasal canula * CTA ruled out PE but showed chronic COPD changes * 2D echo done and is pending * cardiology on board * on breathing treatments * for cardiac cath tomorrow; recent stress test was negative * 2. CAD s./p stents: on aspirin, plavix and statin 3. COPD: on breathing treatments. 4. Hypertension * Blood pressure remains in the 150s and 160s. * On hydrochlorothiazide and metoprolol. Nifedipine stopped on admission on account of probable heart failure. * Also on losartan. As needed labetalol. * will increase metoprolol to 50mg bid. * 5. Diabetes mellitus: * On glipizide. * Metformin on hold on account of possibility of cardiac cath. * Insulin sliding scale. Accu-Cheks AC at bedtime. 6. History of epididymal cyst: * Testicular ultrasound showed bilateral hydrocele. * urology on board; advocate conservative management for now and outpatient follow up 7. Tinea pedis; on clotrimazole 8. Peripheral neuropathy: on neurontin 9. history of iron deficiency anemia * hemoglobin is 8.7 today, was 9.3 yesterday. [facility] * States he has been worked up multiple times with colonoscopies but no source found. * Does not tolerate iron well so not on iron supplementation. * Will monitor hemoglobin. * check fecal occult blood * DVT prophylaxis; SCDs Code Visit Inpatient E&M: 82587 Subs Hosp L3
[2018-07-26 12:41] LABS: Bedside Glucose 171 mg/dL (70-110)
--- NOTE | 2018-07-26 13:08 | PN.CARD_ITS ---
Subjectve: The patient states he was up in the hallway. He noted he was still short of breath and dyspneic. He did not complain of any ongoing chest discomfort. He has had no other new acute symptoms. Objective: Vital Signs Temp Pulse Resp BP Pulse Ox 98.2 F 70 16 173/80 H 93 07/26/18 09:12 07/26/18 09:19 07/26/18 09:12 07/26/18 09:19 07/26/18 09:12 Oxygen Flow Rate (L/min) 3 Oxygen Delivery Method Room Air Weight: 235 lb 0.204 oz Body Mass Index (BMI) 36.8 Intake and Output for Last 24 Hours 07/24/18 07/25/18 07/26/18 23:59 23:59 23:59 Intake Total 2340 / 2340 0 / 0 Output Total 850 / 850 2695 / 2695 350 / 350 Balance -850 / -850 -355 / -355 -350 / -350 General: Awake, Alert, Oriented x 3, Cooperative, No Acute Distress HEENT: Atraumatic, Normocephalic, PERRL Oral: Moist Mucosa Neck: Supple, Good ROM, No JVD Lungs: Clear to auscultation Cardiovascular: Regular Rhythm, Normal S1, Normal S2 Abdomen: Bowel Sounds Present, Soft, Non Tender Extremities: No edema Neurological: No Focal Motor or Sensory Deficit Psych/Mental Status: Appropriate 07/26/18 06:49: WBC 5.1, RBC 3.12 L, Hgb 8.7 L, Hct 27.9 L, MCV 89.4, MCH 27.9, MCHC 31.2 L, RDW 14.7 H, RDW Differential 47.9 H, Plt Count 198, MPV 9.0, Immature Gran % (Auto) 0.200, Neut % (Auto) 67.6, Lymph % (Auto) 22.4, [place] % (Auto) 7.6, Eos % (Auto) 1.6, Baso % (Auto) 0.6, Absolute Neuts (auto) 3.5, Total Counted Not Reportable 07/26/18 06:49: Sodium 135 L, Potassium 4.2, Chloride 100, Carbon Dioxide 24.0, Anion Gap 11, BUN 12, Creatinine 0.95, Est GFR (MDRD) Af Amer 102, Est GFR (MDRD) Non-Af 84, BUN/Creatinine Ratio 12.6, Glucose 153 H, Calcium 8.6 Rhythm: Sinus rhythm EKG: Sinus rhythm; no acute ECG changes ECHO: 07/02/2019: Left ventricle: Normal with an LVEF 65%; mild left atrial enlargement; mild MR; trivial TR; aortic valve sclerosis; calcified aortic root; estimated RV systolic pressure of 36 mmHg Medical Necessity - Tobacco Use Smoking Status: Former smoker Assessment/Plan 1. Dyspnea on exertion The patient has progressive dyspnea on exertion. He states it is getting worse. His notes he becomes more and more limited with his activity. He has undergone previous noninvasive and invasive cardiovascular evaluation as described. However there maybe concern as to whether or not this is an angina pectoris equivalent and he has a false negative pharmacologic stress nuclear imaging study. At the present time from a cardiac standpoint he will be referred for reevaluation in the cardiac catheterization laboratory. Depending upon the findings he may or may not need further cardiac diagnostic studies/intervention versus continued noncardiac evaluation of his symptoms, etc. 2. CAD status post RCA PCI The patient will continue to be followed. He will continue medical management is deemed appropriate. He will be scheduled for upcoming diagnostic cardiac catheterization. 3. Pulmonary hypertension The patient does have a history of underlying pulmonary hypertension. This may be secondary to a history of COPD and obstructive sleep apnea. This may be contributing to his shortness of breath and dyspnea. He will need continued pulmonary evaluation and care. 4. COPD The patient does have a history of COPD. He does follow up with a control systems drafting officer- Dr. Tavarez. 5. Obstructive sleep apnea The patient also has a history of obstructive sleep apnea. Again he will need to continue to follow with his control systems drafting officer for this. 6. Hyperlipidemia He will continue risk factor modification and medical management. 7. Hypertension His blood pressure is noted to be elevated. His medications will be adjusted. 8. Diabetes mellitus He will continue evaluation care per internal medicine. 9. Anemia The patient has been noted to be anemic. His H&H has declined. In light of his symptoms and the need for an upcoming invasive evaluation/procedure he will receive PRBCs. Comment: The patient's case was discussed I reviewed with the patient. This note was generated using a voice recognition system and there may be incorrect words, spelling or punctuation that were not noted when reviewing the office note prior to saving.
[2018-07-26 16:50] LABS: Bedside Glucose 96 mg/dL (70-110)
[2018-07-26] MEDS: Aspirin E.C. 81 MG Tablet PO (17:32)
[2018-07-26 19:40] LABS: Bacteria 0 SEEN /hpf (None Seen); Mucous, Urine 0 SEEN /hpf (<or=2+); Red Blood Cells-Urine 0 SEEN /hpf (0-5); Squamous Epithelial Cells - UA 0 SEEN /hpf (0-5); White Blood Cells 0 SEEN /hpf (0-5)
[2018-07-26 19:42] LABS: Color, Urine Straw (Yellow); Glucose, Dipstick Normal (Normal); Ketone-Dipstick Negative (Negative); Leukocyte Esterase-Dipstick Negative /ul (Negative); Nitrite-Dipstick Negative (Negative); Occult Blood-Urine Negative /ul (Negative); Protein-Dipstick Negative (Negative); Urine Bilirubin Dipstick Negative (Negative); Urine Clarity Clear (Clear); Urine Urobilinogen Normal (Normal)
--- NOTE | 2018-07-26 19:44 | NURSING ---
Patient blood started at 1724 and ended at 1940 - patient tolerated well. No reactions. Lung sounds clear.
--- NOTE | 2018-07-26 20:40 | CASEMGMT ---
TORRIE CM Note: [facility], , [facility], [facility], [facility])
[2018-07-26] MEDS: Atorvastatin Calcium 40 MG Tablet PO (21:42)
[2018-07-26] MEDS: ROFLUMILAST 500 MCG TABLET PO (21:42)
[2018-07-26] MEDS: Metoprolol Tartrate 50 MG Tablet PO (21:44)
[2018-07-26] MEDS: Gabapentin 100 MG Capsule PO (21:45)
[2018-07-26] MEDS: Montelukast 10 MG Tablet PO (21:45)
[2018-07-26 23:10] LABS: Bedside Glucose 141 mg/dL (70-110)
[2018-07-27] VITALS (25 sets, daily range): BP systolic 137–173; BP diastolic 69–85; PULSE 56–99; RESP 9–18; TEMP 36.6–37.1; O2SAT 91–97
--- NOTE | 2018-07-27 05:55 | EKG12_ITS ---
Test Reason : AM EKG Blood Pressure : / mmHG Vent. Rate : 060 BPM Atrial Rate : 060 BPM P-R Int : 164 ms QRS Dur : 096 ms QT Int : 434 ms P-R-T Axes : 069 065 059 degrees QTc Int : 434 ms Normal sinus rhythm Normal ECG When compared with ECG of 26-JUL-2018 05:51, MANUAL COMPARISON REQUIRED, DATA IS UNCONFIRMED Confirmed by JAYY SIMMS, ALONZO ([id number]), video editor JAYLYN CHENG ([id number]) on 07/28/2018 5:30:26 PM Referred By: NEGAR Confirmed By:ALONZO HOPE MD
[2018-07-27] MEDS: Losartan Potassium 100 MG Tablet PO (06:12)
[2018-07-27] MEDS: amLODIPine 5 MG Tablet PO (06:13)
[2018-07-27] MEDS: Clopidogrel Bisulfate 75 MG Tablet PO (06:14)
[2018-07-27] MEDS: Metoprolol Tartrate 50 MG Tablet PO ×2 (06:16→20:56)
[2018-07-27] MEDS: Aspirin E.C. 81 MG Tablet PO (06:17)
[2018-07-27 06:21] LABS: Partial Thromboplast Time 35.6 Seconds (24.1-36.2); Prothrombin Time (Protime)PT. 13.6 SECONDS (11.7-14.9)
[2018-07-27] MEDS: 0.9% NaCl Peripheral Flush Adult/Peds IV (06:22)
[2018-07-27 06:32] LABS: Absolute Lymphocyte Count 1.22 X10^3/ul (0.83-4.51); Absolute Neutrophil Count 4.3 X10^3/uL (2.0-7.7); Anion Gap 14 (5-15); BUN 11 mg/dL (7-18); BUN/Creat Ratio 12.2 RATIO (10-20); Basophil# 0.03 X10^3/uL; Basophil% 0.5 % (0-1); Calcium,Total 8.7 mg/dL (8.5-10.1); Chloride 95 mmol/L (98-107); EST Glomerular Filtration Rate 90 mL/min (>60); Eosinophil# 0.12 X10^3/uL; Eosinophils% 1.9 % (0-5); Est Glom Filt Rate - Afr Amer 108 mL/min (>60); Estimated Creatinine Clearance 75.48 ml/min; Glucose 147 mg/dL (74-106); Hematocrit 31.1 % (40-54); Hemoglobin 9.9 g/dl (13.0-16.5); Lymphocyte # 1.22 X10^3/ul (4.0); Lymphocyte % 19.8 % (19-41); Mean Corp Hgb Conc 31.8 g/gl (32-36); Mean Corpuscular Volume 87.9 fL (80-94); Monocyte# 0.48 X10^3/uL; Monocyte% 7.8 % (0-10); Neutrophil # 4.29 X10^3/uL (2.7-7.7); Neutrophil % 69.7 % (47-70); Platelet Count 217 K/mm3 (150-450); Potassium 4.2 mmol/L (3.5-5.1); RBC Distribution Width CV 14.2 % (11.6-14.6); RBC Distribution Width SD 45.5 fl (35.1-43.9); Red Blood Count 3.54 M/mm3 (4.6-6.2); Sodium Level 131 mmol/L (136-145); White Blood Count 6.2 K/mm3 (4.4-11.0)
[2018-07-27] MEDS: Ipratropium/Albuterol Sulfate 3 ML AMPUL.NEB INHALATION ×3 (06:56→19:15)
[2018-07-27] MEDS: Budesonide Respules 0.5 MG/2 ML AMPUL.NEB. INHALATION ×2 (06:56→19:25)
--- NOTE | 2018-07-27 07:06 | NURSING ---
Report called to Leo in grinding and polishing laborer at this time. Jie, ANABELL transporting pt to grinding and polishing laborer at this time. accompanying.
[2018-07-27 07:11] LABS: POSITIVE COUNT NO; POSITIVE DIFFERENTIAL NO; POSITIVE MORPHOLOGY NO
--- NOTE | 2018-07-27 09:16 | PCM.PN.CARD ---
Subjectve: The patient is status post diagnostic cardiac catheterization. In brief, his left ventricular systolic function appears preserved and his coronary anatomy did not demonstrate any new angiographically significant appearing CAD. He appears to have no obvious post cardiac catheterization and firsts complaint/Atrovent. Objective: Vital Signs Temp Pulse Resp BP Pulse Ox 98.3 F 63 16 172/85 H 94 07/27/18 06:07 07/27/18 07:08 07/27/18 06:56 07/27/18 06:07 07/27/18 06:56 Oxygen Flow Rate (L/min) 3 Oxygen Delivery Method Room Air Weight: 235 lb 0.204 oz Body Mass Index (BMI) 36.8 Intake and Output for Last 24 Hours 07/25/18 07/26/18 07/27/18 23:59 23:59 23:59 Intake Total 2340 / 2340 2274.2 / 2274.2 490 / 490 Output Total 2695 / 2695 850 / 850 Balance -355 / -355 1424.2 / 1424.2 490 / 490 General: Awake, Alert, Oriented x 3, Cooperative, No Acute Distress HEENT: Atraumatic, Normocephalic, PERRL Oral: Moist Mucosa Neck: Supple, Good ROM, No JVD Lungs: Clear to auscultation Cardiovascular: Regular Rhythm, Normal S1, Normal S2 Vascular: Normal Radial Pulses Abdomen: Bowel Sounds Present, Soft, Non Tender Extremities: No edema Neurological: No Focal Motor or Sensory Deficit Psych/Mental Status: Appropriate 07/26/18 19:20: Urine Color Straw, Urine Clarity Clear, Urine pH 6.0, Ur Specific [place] 1.010, Urine Protein Negative, Urine Glucose (UA) Normal, Urine Ketones Negative, Urine Occult Blood Negative, Urine Nitrite Negative, Urine Bilirubin Negative, Urine Urobilinogen Normal, Ur Leukocyte Esterase Negative, Urine RBC 0 SEEN, Urine WBC 0 SEEN 07/27/18 05:10: WBC 6.2, RBC 3.54 L, Hgb 9.9 L, Hct 31.1 L, MCV 87.9, MCH 28.0, MCHC 31.8 L, RDW 14.2, RDW Differential 45.5 H, Plt Count 217, MPV 9.0, Immature Gran % (Auto) 0.300, Neut % (Auto) 69.7, Lymph % (Auto) 19.8, [place] % (Auto) 7.8, Eos % (Auto) 1.9, Baso % (Auto) 0.5, Absolute Neuts (auto) 4.3, Total Counted Not Reportable 07/27/18 05:10: Sodium 131 L, Potassium 4.2, Chloride 95 L, Carbon Dioxide 22.0, Anion Gap 14, BUN 11, Creatinine 0.90, Est GFR (MDRD) Af Amer 108, Est GFR (MDRD) Non-Af 90, BUN/Creatinine Ratio 12.2, Glucose 147 H, Calcium 8.7 07/27/18 05:10: PT 13.6, INR 1.0, APTT 35.6 Rhythm:Sinus rhythm Cardiac Cath:Please see official report Medical Necessity - Tobacco Use Smoking Status: Former smoker Assessment/Plan 1. Dyspnea on exertion At the present time the patient has undergone repeat cardiovascular evaluation. Based upon his cardiac catheterization has left ventricular systolic function appears preserved and his coronary anatomy did not demonstrate any new angiographically significant appearing lesions. His RCA stent appears to me maturing. At the present time he will continue cardiovascular risk factor evaluation care. He should be considered for a known CAD/noncardiac evaluation of his shortness of breath/dyspnea on exertion. This may require further evaluation of his underlying pulmonary disease process and his anemia. 2. CAD status post RCA PCI The patient will continue to be followed. He will continue medical management as deemed appropriate. 3. Pulmonary hypertension The patient does have a history of underlying pulmonary hypertension. This may be secondary to a history of COPD and obstructive sleep apnea. This may be contributing to his shortness of breath and dyspnea. He will need continued pulmonary evaluation and care. 4. COPD The patient does have a history of COPD. He does follow up with a stock car driver-Dr. Tavarez. 5. Obstructive sleep apnea The patient also has a history of obstructive sleep apnea. Again he will need to continue to follow with his stock car driver for this. 6. Hyperlipidemia He will continue risk factor modification and medical management. 7. Hypertension His blood pressure is noted to be elevated. His medications will be adjusted. 8. Diabetes mellitus He will continue evaluation care per internal medicine. 9. Anemia He did receive 1 unit of PVCs. His H&H appears to be improved. He will need to update his physicians as to how he feels with a higher hemoglobin level with respect to his concern of dysrhythmia. At the same time he continues to require followup of his other physicians with further evaluation care of the etiology of his anemia. Comment: The patient's case was discussed I reviewed with the patient and his spouse . This note was generated using a voice recognition system and there may be incorrect words, spelling or punctuation that were not noted when reviewing the office note prior to saving.
--- NOTE | 2018-07-27 09:19 | PN.CARD_ITS ---
Subjectve: The patient is status post diagnostic cardiac catheterization. In brief, his left ventricular systolic function appears preserved and his coronary anatomy did not demonstrate any new angiographically significant appearing CAD. He appears to have no obvious post cardiac catheterization and firsts complaint/Atrovent. Objective: Vital Signs Temp Pulse Resp BP Pulse Ox 98.3 F 63 16 172/85 H 94 07/27/18 06:07 07/27/18 07:08 07/27/18 06:56 07/27/18 06:07 07/27/18 06:56 Oxygen Flow Rate (L/min) 3 Oxygen Delivery Method Room Air Weight: 235 lb 0.204 oz Body Mass Index (BMI) 36.8 Intake and Output for Last 24 Hours 07/25/18 07/26/18 07/27/18 23:59 23:59 23:59 Intake Total 2340 / 2340 2274.2 / 2274.2 490 / 490 Output Total 2695 / 2695 850 / 850 Balance -355 / -355 1424.2 / 1424.2 490 / 490 General: Awake, Alert, Oriented x 3, Cooperative, No Acute Distress HEENT: Atraumatic, Normocephalic, PERRL Oral: Moist Mucosa Neck: Supple, Good ROM, No JVD Lungs: Clear to auscultation Cardiovascular: Regular Rhythm, Normal S1, Normal S2 Vascular: Normal Radial Pulses Abdomen: Bowel Sounds Present, Soft, Non Tender Extremities: No edema Neurological: No Focal Motor or Sensory Deficit Psych/Mental Status: Appropriate 07/26/18 19:20: Urine Color Straw, Urine Clarity Clear, Urine pH 6.0, Ur Specific [place] 1.010, Urine Protein Negative, Urine Glucose (UA) Normal, Urine Ketones Negative, Urine Occult Blood Negative, Urine Nitrite Negative, Urine Bilirubin Negative, Urine Urobilinogen Normal, Ur Leukocyte Esterase Negative, Urine RBC 0 SEEN, Urine WBC 0 SEEN 07/27/18 05:10: WBC 6.2, RBC 3.54 L, Hgb 9.9 L, Hct 31.1 L, MCV 87.9, MCH 28.0, MCHC 31.8 L, RDW 14.2, RDW Differential 45.5 H, Plt Count 217, MPV 9.0, Immature Gran % (Auto) 0.300, Neut % (Auto) 69.7, Lymph % (Auto) 19.8, [place] % (Auto) 7.8, Eos % (Auto) 1.9, Baso % (Auto) 0.5, Absolute Neuts (auto) 4.3, Total Counted Not Reportable 07/27/18 05:10: Sodium 131 L, Potassium 4.2, Chloride 95 L, Carbon Dioxide 22.0, Anion Gap 14, BUN 11, Creatinine 0.90, Est GFR (MDRD) Af Amer 108, Est GFR (MDRD) Non-Af 90, BUN/Creatinine Ratio 12.2, Glucose 147 H, Calcium 8.7 07/27/18 05:10: PT 13.6, INR 1.0, APTT 35.6 Rhythm:Sinus rhythm Cardiac Cath:Please see official report Medical Necessity - Tobacco Use Smoking Status: Former smoker Assessment/Plan 1. Dyspnea on exertion At the present time the patient has undergone repeat cardiovascular evaluation. Based upon his cardiac catheterization has left ventricular systolic function appears preserved and his coronary anatomy did not demonstrate any new angiographically significant appearing lesions. His RCA stent appears to me maturing. At the present time he will continue cardiovascular risk factor evaluation care. He should be considered for a known CAD/noncardiac evaluation of his shortness of breath/dyspnea on exertion. This may require further evaluation of his underlying pulmonary disease process and his anemia. 2. CAD status post RCA PCI The patient will continue to be followed. He will continue medical management as deemed appropriate. 3. Pulmonary hypertension The patient does have a history of underlying pulmonary hypertension. This may be secondary to a history of COPD and obstructive sleep apnea. This may be contributing to his shortness of breath and dyspnea. He will need continued pulmonary evaluation and care. 4. COPD The patient does have a history of COPD. He does follow up with a emergency room clinician- Dr. Tavarez. 5. Obstructive sleep apnea The patient also has a history of obstructive sleep apnea. Again he will need to continue to follow with his emergency room clinician for this. 6. Hyperlipidemia He will continue risk factor modification and medical management. 7. Hypertension His blood pressure is noted to be elevated. His medications will be adjusted. 8. Diabetes mellitus He will continue evaluation care per internal medicine. 9. Anemia He did receive 1 unit of PVCs. His H&H appears to be improved. He will need to update his physicians as to how he feels with a higher hemoglobin level with respect to his concern of dysrhythmia. At the same time he continues to require followup of his other physicians with further evaluation care of the etiology of his anemia. Comment: The patient's case was discussed I reviewed with the patient and his spouse . This note was generated using a voice recognition system and there may be i ncorrect words, spelling or punctuation that were not noted when reviewing the office note prior to saving.
--- NOTE | 2018-07-27 09:55 | CL.D_ITS ---
Patient Name: ESTEFANY PEPPER Study Date: 07/27/2018 Performing: Chad Reese MD Ht: 67 inches 170.18 cm : 1950 Wt: 235.3 lbs 106.59 kg Age: 68 Gender: male BSA: 2.17 PROCEDURE(S) PERFORMED AL16-UGW/COR/LV CLINICAL PROFILE AND INDICATIONS Indications: Suspected CAD Heart Failure: None Stress/Imaging Stress Test w/SPECT MPI: Yes Result: NegativeStress Test with SPECT MPI: Negative Angina Classification Anginal Classification w/in 2 Weeks: CCS III CAD Presentations: Other: worsening dyspnea on exertion / angina pectoris equivalent CONCLUSIONS Elevated Left Ventricular End Diastolic Pressure Normal LV size, wall motion,and systolic function LVEF: by LV gram 65 % [place] Multivessel CAD RECOMMENDATIONS Medical therapy Follow up with primary care physician DESCRIPTION OF PROCEDURE The patient arrived to the procedure lab. The risks and benefits of the procedure as well as a full d escription of our services here and current unavailability of surgical backup were fully explained to the patient and/or their significant other prior to the catheterization. The Timeout was completed, verifying the correct patient and procedure. The patient's procedural site was prepped and draped in the usual fashion. Local anesthetic was given subcutaneously to right radial region with Lidocaine 2% . Using a modified Seldinger technique, arterial access was obtained via the right radial artery, a 6 Fr sheath was inserted. Left Coronary Artery selective angiography was performed in multiple views u sing a 5 Fr. 4.0 [place] catheter. Right Coronary Artery selective angiography was then performed in mu ltiple views using a 5 Fr. 4.0 [place] catheter. Left Ventriculography was performed in CHAPA projection using a 5 Fr. [place] catheter. LV to AO pullback pressures were then recorded.The arterial sheath was pulled and a TR Band was applied for hemostasis CORONARY ANGIOGRAPHY DOMINANCE: Right Dominant LEFT HEART ASSESSMENT Left Ventricular Ejection Fraction: by LV Gram 60 % Normal LV wall motion Elevated Left Ventricular End Diastolic Pressure LVEDP: 23 mmHg LEFT MAIN: Mild calcification, Mild luminal irregularities LEFT ANTERIOR DECENDING ARTERY: Mild luminal irregularities PROX LAD: Mild calcification CIRCUMFLEX ARTERY: Angiographically normal RAMUS: Angiographically normal RIGHT CORONARY ARTERY: PROX RCA: Previously placed stent is patent MID RCA: Diffuse: Eccentric: 10-25 % Stenosis RIGHT AV SEGMENT: Mild luminal irregularities VALVE FINDINGS: Normal Aortic Valve function Normal Mitral Valve function AORTIC ROOT: Angiographically normal COMPLICATIONS No Complications PROCEDURE MEDICATIONS Fentanyl 50 mcg IV Versed 1 mg IV Fentanyl 50 mcg IV Versed 1 mg IV Oxygen: 2 L/min via nasal cannula Oxygen: 4 L/min via nasal cannula Heparin diluted in 23cc Heparinized saline. Patient given 10cc IA of this solution. 07/27/2018 07:36: 44 Verapamil 2.5mg, Ntg 100mcgs, 2000 units of Heparin diluted in 23cc Heparinized saline. Patient give n 10cc IA of this solution. 07/27/2018 07:36:44 SUMMARY OF HEMODYNAMIC DATA Time AIR REST ECG 07:23:53 AO 141/68 (97) SA 07:39:16 LV 179/22, 40 07:46:29 LV 137/10, 23 07:46:35 LV 147/17, 33 07:48:14 LV 149/11, 39 07:48:21 LVp 156/-1, 20 07:48:25 AOp 168/81 (116) 07:48:30 Signed By Chad Reese MD On 07/27/2018 08:15:24 Chad Reese MD
[2018-07-27] MEDS: Omega-3 Acid Ethyl Esters 1 GM Capsule 2 GM PO ×2 (10:08→20:57)
[2018-07-27] MEDS: amLODIPine 10 MG Tablet PO (10:08)
[2018-07-27] MEDS: Enoxaparin 40 MG/0.4 ML Syringe SC (10:08)
[2018-07-27] MEDS: hydroCHLOROthiazide 12.5mg 12.5 MG PO (10:08)
[2018-07-27] MEDS: Gabapentin 100 MG Capsule 200 MG PO (10:08)
[2018-07-27] MEDS: Multivitamins,Therapeutic Tablet 1 TABLET PO (10:08)
[2018-07-27] MEDS: Vitamin B Comp W-C Capsule 1 CAP PO (10:08)
[2018-07-27] MEDS: Tamsulosin HCl 0.4 MG Capsule PO (10:08)
[2018-07-27] MEDS: Pantoprazole Sodium 20 MG Tablet PO (10:08)
[2018-07-27] MEDS: 0.9% Normal Saline 1,000 ML 75 ML IV (10:09)
--- NOTE | 2018-07-27 10:58 | CASEMGMT ---
Addendum entered by Joselyn Monroe 07/27/18 14:05: [facility] Oanh BROWNLEE CM Original Note: TORRIE MILLIGAN assessment: Face to Face with patient for initial transition planning/care coordination assessment. TORRIE MILLIGAN introduced self and role at [facility], pt voices understanding and consents to assessment at this time. Pt's is at bedside during assessment. Pt is sitting up in bed in no distress at this time. Pt is A/Ox4 at this time and answers all questions appropriately at this time. Care providers, pharmacy, and demographics verified at this time. PCP: [facility] and pt is working on getting new PCP at [facility] Specialists: Sibdarryn, pulm; Mary Ann, cardio Preferred Pharmacy: [facility] Insurance: [facility] Prescription Benefit: [facility] Living Will/HPOA: Pt does not currently have LW/HPOA but pt/ are interested in completing for pt at this time. Dasha campbell, voices understanding. LNOK: Aviva Levy, ; Radames Levy II, son Living Arrangements: Pt states lives with in 1 story home and states no concerns at home at this time. Pt is independent with all ADL's at home. Transportation: Pt drives self and states no transportation concerns at this time. DME/HHC: Pt has the following DME at home: pulse ox, cpap, and home oxygen 3 liters [facility]. Pt states no need for any further DME at this time. Pt states no hx of HHC or SNF in the past. Pt states no concerns with going home at time of discharge. Pt is retired. Pt states does not smoke or drink ETOH. Pt states no further questions/concerns/needs at this time. CM to follow for any further discharge planning/needs. Advised pt to ask for CM for any further discharge planning/needs, voices understanding. Updated clinicals faxed to [place] at this time and [facility]. Plan: Home Oanh BROWNLEE CM
[2018-07-27 11:20] LABS: Bedside Glucose 155 mg/dL (70-110)
[2018-07-27 12:21] LABS: Bedside Glucose 170 mg/dL (70-110)
[2018-07-27 17:05] LABS: Bedside Glucose 161 mg/dL (70-110)
--- NOTE | 2018-07-27 20:11 | PCM.PROGNOTE ---
Patient Problems: Active and Suspected Problems (Last Reviewed 07/26/18 @ 09:36 by Donny Ramsey MD) Pulmonary HTN (Suspected) Dyspnea (Acute) Hydrocele (Acute) Hydrocele, bilateral (Acute) Subjective: Patient was seen and examined today, I discussed his care with cardiology today and his behavioral technician Dr. Tavarez of by phone. Patient's hemoglobin was 9.9 today, I have decided to give him 1 unit of packed red blood cells and administer Venofer, I had a discussion with the patient and his today, he has been worked up in the past for occult GI bleeding but according to the , she does not feel that he has had a capsule endoscopy performed. Patient was placed on oral iron but the stated the patient stopped it due to diarrhea with [id number] iron and the [facility] where he receives his care did not recommend any other iron preparation. Patient's recent iron level was low on 07/23/18-result was 23. At this time, cardiology does not feel that the patient's cardiac problems are responsible for the patient's dyspnea, patient had a heart catheterization today which did not show any sign of occlusive coronary disease, the patient's behavioral technician feels the patient has only minimal chronic obstructive pulmonary disease. - Physical Exam General: Alert, Oriented x3, Cooperative, No apparent distress, Well developed HEENT: Atraumatic, PERRLA, EOMI, Normocephalic Oral: Moist Mucosa Neck: Supple, Trachea Midline, Thyroid Normal Size and Texture Lungs: Clear to auscultation, Normal air movement, No rhonchi, No wheeze, No rales Cardiovascular: Regular rate, Regular Rhythm, Normal S1, Normal S2, No murmurs, No Ectopic Activity Abdomen: Bowel Sounds Present, Soft, Non Tender, Non-Distended, No hernias noted Extremities: No clubbing, No cyanosis, Capillary Refill Less than 3 Seconds Skin: No rashes, No breakdown Neurological: Cranial nerves II-XII grossly intact, Neuro grossly intact, Sensory exam intact to light touch and pain, Coordination normal Psych/Mental Status: Normal Affect, Appropriate, Alert and oriented to time, place, person, mood and affect Vital Signs Temp Pulse Resp BP Pulse Ox 98 F 99 18 145/78 H 95 07/27/18 17:24 07/27/18 19:45 07/27/18 17:24 07/27/18 17:24 07/27/18 17:24 Oxygen Flow Rate (L/min) 3 Oxygen Delivery Method Room Air Weight: 106.6 kg Body Mass Index (BMI) 36.8 Intake and Output for Last 24 Hours 07/25/18 07/26/18 07/27/18 23:59 23:59 23:59 Intake Total 2340 / 2340 2274.2 / 2274.2 3870 / 3870 Output Total 2695 / 2695 850 / 850 1800 / 1800 Balance -355 / -355 1424.2 / 1424.2 2069 / 2069 Microbiology Past 72 Hours 07/27/18 03:25 Stool Occult Blood (TIMOTEO) - Final Stool 07/25/18 04:39 Respiratory Panel (PCR) - Final Mucosa - Nasopharyngeal Laboratory Tests Past 24 Hrs 07/26/18 07/26/18 07/27/18 13:25 13:25 05:10 WBC 6.2 RBC 3.54 L Hgb 9.9 L Hct 31.1 L MCV 87.9 MCH 28.0 MCHC 31.8 L RDW 14.2 RDW Differential 45.5 H Plt Count 217 MPV 9.0 Immature Gran % (Auto) 0.300 Neut % (Auto) 69.7 Lymph % (Auto) 19.8 [place] % (Auto) 7.8 Eos % (Auto) 1.9 Baso % (Auto) 0.5 Absolute Neuts (auto) 4.3 Absolute Lymphs (auto) 1.22 Total Counted Not Reportable PT INR APTT Sodium Potassium Chloride Carbon Dioxide Anion Gap BUN Creatinine Estim Creat Clear Calc Est GFR (MDRD) Af Amer Est GFR (MDRD) Non-Af BUN/Creatinine Ratio Glucose Calcium Crossmatch See Detail See Detail 07/27/18 07/27/18 05:10 05:10 WBC RBC Hgb Hct MCV MCH MCHC RDW RDW Differential Plt Count MPV Immature Gran % (Auto) Neut % (Auto) Lymph % (Auto) [place] % (Auto) Eos % (Auto) Baso % (Auto) Absolute Neuts (auto) Absolute Lymphs (auto) Total Counted PT 13.6 INR 1.0 APTT 35.6 Sodium 131 L Potassium 4.2 Chloride 95 L Carbon Dioxide 22.0 Anion Gap 14 BUN 11 Creatinine 0.90 Estim Creat Clear Calc 75.48 Est GFR (MDRD) Af Amer 108 Est GFR (MDRD) Non-Af 90 BUN/Creatinine Ratio 12.2 Glucose 147 H Calcium 8.7 Crossmatch POC Glucose 07/27/18 07/27/18 07/27/18 17:01 12:15 06:31 POC Glucose 161 H 170 H 155 H 07/26/18 21:48 POC Glucose 141 H Medical Necessity - Tobacco Use Smoking Status: Former smoker Assessment/Plan All Active Problems (Last Reviewed 07/26/18 @ 09:36 by Donny Ramsey MD) Hypokalemia (Resolved) Stable angina (Resolved) Dyspnea (Acute) Hydrocele (Acute) Hydrocele, bilateral (Acute) #1 dyspnea on exertion-probably at least in part secondary to chronic iron deficiency anemia on a backdrop of COPD-patient will be transfused 1 unit of packed red blood cells, he will be given IV Venofer today and tomorrow, he will need further workup as an outpatient concerning his anemia-he gets his care at the [facility] and I have recommended to the patient and his to go back to the [place] concerning his anemia. Patient will need to take iron supplementation when he is discharged home #2 coronary artery disease-stable at this time, patient's heart catheterization today did not show any sign of occlusive coronary disease #3 iron deficiency anemia-again patient will receive packed red blood cells and IV Venofer, he will need further workup as an outpatient #4 COPD-mild according to his behavioral technician #5 obstructive sleep apnea #6 type 2 diabetes-continue present care #7 hypertension #8 pulmonary hypertension-this appears to be mild to moderate in nature and is probably not causing his dyspnea Code Visit Inpatient E&M: 49498 Subs Hosp L2
--- NOTE | 2018-07-27 20:15 | PN_ITS ---
Patient Problems: Active and Suspected Problems (Last Reviewed 07/26/18 @ 09:36 by Donny Ramsey MD) Pulmonary HTN (Suspected) Dyspnea (Acute) Hydrocele (Acute) Hydrocele, bilateral (Acute) Subjective: Patient was seen and examined today, I discussed his care with cardiology today and his chief writer Dr. Tavarez of by phone. Patient's hemoglobin was 9.9 today, I have decided to give him 1 unit of packed red blood cells and administer Venofer, I had a discussion with the patient and his today, he has been worked up in the past for occult GI bleeding but according to the , she does not feel that he has had a capsule endoscopy performed. Patient was placed on oral iron but the stated the patient stopped it due to diarrhea with [id number] iron and the [facility] where he receives his care did not recommend any other iron preparation. Patient's recent iron level was low on 07/23/18-result was 23. At this time, cardiology does not feel that the patient's cardiac problems are responsible for the patient's dyspnea, patient had a heart catheterization today which did not show any sign of occlusive coronary disease, the patient's chief writer feels the patient has only minimal chronic obstructive pulmonary disease. - Physical Exam General: Alert, Oriented x3, Cooperative, No apparent distress, Well developed HEENT: Atraumatic, PERRLA, EOMI, Normocephalic Oral: Moist Mucosa Neck: Supple, Trachea Midline, Thyroid Normal Size and Texture Lungs: Clear to auscultation, Normal air movement, No rhonchi, No wheeze, No rales Cardiovascular: Regular rate, Regular Rhythm, Normal S1, Normal S2, No murmurs, No Ectopic Activity Abdomen: Bowel Sounds Present, Soft, Non Tender, Non-Distended, No hernias noted Extremities: No clubbing, No cyanosis, Capillary Refill Less than 3 Seconds Skin: No rashes, No breakdown Neurological: Cranial nerves II-XII grossly intact, Neuro grossly intact, Sensory exam intact to light touch and pain, Coordination normal Psych/Mental Status: Normal Affect, Appropriate, Alert and oriented to time, place, person, mood and affect Vital Signs Temp Pulse Resp BP Pulse Ox 98 F 99 18 145/78 H 95 07/27/18 17:24 07/27/18 19:45 07/27/18 17:24 07/27/18 17:24 07/27/18 17:24 Oxygen Flow Rate (L/min) 3 Oxygen Delivery Method Room Air Weight: 106.6 kg Body Mass Index (BMI) 36.8 Intake and Output for Last 24 Hours 07/25/18 07/26/18 07/27/18 23:59 23:59 23:59 Intake Total 2340 / 2340 2274.2 / 2274.2 3870 / 3870 Output Total 2695 / 2695 850 / 850 1800 / 1800 Balance -355 / -355 1424.2 / 1424.2 2069 / 2069 Microbiology Past 72 Hours 07/27/18 03:25 Stool Occult Blood (TIMOTEO) - Final Stool 07/25/18 04:39 Respiratory Panel (PCR) - Final Mucosa - Nasopharyngeal Laboratory Tests Past 24 Hrs 07/26/18 07/26/18 07/27/18 13:25 13:25 05:10 WBC 6.2 RBC 3.54 L Hgb 9.9 L Hct 31.1 L MCV 87.9 MCH 28.0 MCHC 31.8 L RDW 14.2 RDW Differential 45.5 H Plt Count 217 MPV 9.0 Immature Gran % (Auto) 0.300 Neut % (Auto) 69.7 Lymph % (Auto) 19.8 [place] % (Auto) 7.8 Eos % (Auto) 1.9 Baso % (Auto) 0.5 Absolute Neuts (auto) 4.3 Absolute Lymphs (auto) 1.22 Total Counted Not Reportable PT INR APTT Sodium Potassium Chloride Carbon Dioxide Anion Gap BUN Creatinine Estim Creat Clear Calc Est GFR (MDRD) Af Amer Est GFR (MDRD) Non-Af BUN/Creatinine Ratio Glucose Calcium Crossmatch See Detail See Detail 07/27/18 07/27/18 05:10 05:10 WBC RBC Hgb Hct MCV MCH MCHC RDW RDW Differential Plt Count MPV Immature Gran % (Auto) Neut % (Auto) Lymph % (Auto) [place] % (Auto) Eos % (Auto) Baso % (Auto) Absolute Neuts (auto) Absolute Lymphs (auto) Total Counted PT 13.6 INR 1.0 APTT 35.6 Sodium 131 L Potassium 4.2 Chloride 95 L Carbon Dioxide 22.0 Anion Gap 14 BUN 11 Creatinine 0.90 Estim Creat Clear Calc 75.48 Est GFR (MDRD) Af Amer 108 Est GFR (MDRD) Non-Af 90 BUN/Creatinine Ratio 12.2 Glucose 147 H Calcium 8.7 Crossmatch POC Glucose 07/27/18 07/27/18 07/27/18 17:01 12:15 06:31 POC Glucose 161 H 170 H 155 H 07/26/18 21:48 POC Glucose 141 H Medical Necessity - Tobacco Use Smoking Status: Former smoker Assessment/Plan All Active Problems (Last Reviewed 07/26/18 @ 09:36 by Donny Ramsey MD) Hypokalemia (Resolved) Stable angina (Resolved) Dyspnea (Acute) Hydrocele (Acute) Hydrocele, bilateral (Acute) #1 dyspnea on exertion-probably at least in part secondary to chronic iron deficiency anemia on a backdrop of COPD-patient will be transfused 1 unit of packed red blood cells, he will be given IV Venofer today and tomorrow, he will need further workup as an outpatient concerning his anemia-he gets his care at the [facility] and I have recommended to the patient and his to go back to the [place] concerning his anemia. Patient will need to take iron supplementation when he is discharged home #2 coronary artery disease-stable at this time, patient's heart catheterization today did not show any sign of occlusive coronary disease #3 iron deficiency anemia-again patient will receive packed red blood cells and IV Venofer, he will need further workup as an outpatient #4 COPD-mild according to his chief writer #5 obstructive sleep apnea #6 type 2 diabetes-continue present care #7 hypertension #8 pulmonary hypertension-this appears to be mild to moderate in nature and is probably not causing his dyspnea Code Visit Inpatient E&M: 07315 Subs Hosp L2
[2018-07-27 20:51] LABS: Bedside Glucose 183 mg/dL (70-110)
[2018-07-27] MEDS: Atorvastatin Calcium 40 MG Tablet PO (20:56)
[2018-07-27] MEDS: Gabapentin 100 MG Capsule PO (20:57)
[2018-07-27] MEDS: Montelukast 10 MG Tablet PO (20:57)
[2018-07-27] MEDS: ROFLUMILAST 500 MCG TABLET PO (20:57)
[2018-07-28 03:04] VITALS: PULSE 56
[2018-07-28 04:00] VITALS: BP 155/72; PULSE 55; RESP 18; TEMP 36.7; O2SAT 96
--- NOTE | 2018-07-28 05:59 | NURSING ---
PT HEART RATE DROP TO 39. PT ASLEEP AT THIS TIME. PT WOKE UP AND HEART RETURNED TO 60'S
[2018-07-28 06:44] LABS: Absolute Lymphocyte Count 1.06 X10^3/ul (0.83-4.51); Absolute Neutrophil Count 3.7 X10^3/uL (2.0-7.7); Basophil# 0.02 X10^3/uL; Basophil% 0.4 % (0-1); Eosinophils% 1.9 % (0-5); Hematocrit 33.9 % (40-54); Hemoglobin 10.7 g/dl (13.0-16.5); Lymphocyte # 1.06 X10^3/ul (4.0); Lymphocyte % 19.7 % (19-41); Mean Corp Hgb Conc 31.6 g/gl (32-36); Mean Corpuscular Hgb 28.1 pg (27.0-32.0); Mean Platelet Vol. 8.9 fl (6.2-12.0); Monocyte# 0.51 X10^3/uL; Monocyte% 9.5 % (0-10); Neutrophil # 3.69 X10^3/uL (2.7-7.7); Neutrophil % 68.3 % (47-70); Platelet Count 198 K/mm3 (150-450); RBC Distribution Width CV 14.4 % (11.6-14.6); RBC Distribution Width SD 46.7 fl (35.1-43.9); Red Blood Count 3.81 M/mm3 (4.6-6.2); White Blood Count 5.4 K/mm3 (4.4-11.0)
[2018-07-28 06:48] LABS: POSITIVE COUNT NO; POSITIVE DIFFERENTIAL NO; POSITIVE MORPHOLOGY NO
[2018-07-28 06:50] LABS: Bedside Glucose 134 mg/dL (70-110)
[2018-07-28 07:15] VITALS: PULSE 59
[2018-07-28 07:57] VITALS: PULSE 56; RESP 18; O2SAT 96
[2018-07-28] MEDS: Albuterol 2.5 MG/3 ML VIAL.NEB. INHALATION (07:57)
[2018-07-28] MEDS: Budesonide Respules 0.5 MG/2 ML AMPUL.NEB. INHALATION (07:57)
[2018-07-28] MEDS: Clopidogrel Bisulfate 75 MG Tablet PO (08:17)
[2018-07-28] MEDS: amLODIPine 10 MG Tablet PO (08:17)
[2018-07-28] MEDS: Tamsulosin HCl 0.4 MG Capsule PO (08:17)
[2018-07-28 08:18] VITALS: PULSE 87
[2018-07-28] MEDS: Multivitamins,Therapeutic Tablet 1 TABLET PO (08:18)
[2018-07-28] MEDS: Gabapentin 100 MG Capsule 200 MG PO (08:18)
[2018-07-28] MEDS: Pantoprazole Sodium 20 MG Tablet PO (08:18)
[2018-07-28] MEDS: Losartan Potassium 100 MG Tablet PO (08:18)
[2018-07-28] MEDS: Omega-3 Acid Ethyl Esters 1 GM Capsule 2 GM PO (08:18)
[2018-07-28] MEDS: Metoprolol Tartrate 50 MG Tablet PO (08:18)
[2018-07-28] MEDS: hydroCHLOROthiazide 12.5mg 12.5 MG PO (08:18)
--- NOTE | 2018-07-28 09:01 | PCM.PN.CARD ---
Subjectve: The patient states that his breathing is better when he is up and ambulating in the hallway today. Objective: Vital Signs Temp Pulse Resp BP Pulse Ox 98.1 F 87 18 155/72 H 96 07/28/18 04:00 07/28/18 08:18 07/28/18 07:57 07/28/18 04:00 07/28/18 07:57 Oxygen Flow Rate (L/min) 3 Oxygen Delivery Method Room Air Weight: 235 lb 0.204 oz Body Mass Index (BMI) 36.8 Intake and Output for Last 24 Hours 07/26/18 07/27/18 07/28/18 23:59 23:59 23:59 Intake Total 2274.2 / 2274.2 4210 / 4210 60 / 60 Output Total 850 / 850 1800 / 1800 Balance 1424.2 / 1424.2 2410 / 2410 60 / 60 General: Awake, Alert, Oriented x 3, Cooperative, No Acute Distress HEENT: Atraumatic, Normocephalic Oral: Moist Mucosa Neck: Supple, Good ROM, No JVD Lungs: Clear to auscultation Cardiovascular: Regular Rhythm, Normal S1, Normal S2 Vascular: Normal Radial Pulses Abdomen: Bowel Sounds Present, Soft, Non Tender Extremities: No edema Neurological: No Focal Motor or Sensory Deficit Psych/Mental Status: Appropriate 07/28/18 05:40: WBC 5.4, RBC 3.81 L, Hgb 10.7 L, Hct 33.9 L, MCV 89.0, MCH 28.1, MCHC 31.6 L, RDW 14.4, RDW Differential 46.7 H, Plt Count 198, MPV 8.9, Immature Gran % (Auto) 0.200, Neut % (Auto) 68.3, Lymph % (Auto) 19.7, [place] % (Auto) 9.5, Eos % (Auto) 1.9, Baso % (Auto) 0.4, Absolute Neuts (auto) 3.7, Total Counted Not Reportable Rhythm:Sinus rhythm Medical Necessity - Tobacco Use Smoking Status: Former smoker Assessment/Plan 1. Dyspnea on exertion At the present time the patient has undergone repeat cardiovascular evaluation. Based upon his cardiac catheterization has left ventricular systolic function appears preserved and his coronary anatomy did not demonstrate any new angiographically significant appearing lesions. His RCA stent appears to me maturing. At the present time he will continue cardiovascular risk factor evaluation care. He should be considered for a known CAD/noncardiac evaluation of his shortness of breath/dyspnea on exertion. This may require further evaluation of his underlying pulmonary disease process and his anemia. 2. CAD status post RCA PCI The patient will continue to be followed. He will continue medical management as deemed appropriate. 3. Pulmonary hypertension The patient does have a history of underlying pulmonary hypertension. This may be secondary to a history of COPD and obstructive sleep apnea. This may be contributing to his shortness of breath and dyspnea. He will need continued pulmonary evaluation and care. 4. COPD The patient does have a history of COPD. He does follow up with a electrical appliance preparer-Dr. Tavarez. 5. Obstructive sleep apnea The patient also has a history of obstructive sleep apnea. Again he will need to continue to follow with his electrical appliance preparer for this. 6. Hyperlipidemia He will continue risk factor modification and medical management. 7. Hypertension His blood pressure is noted to be elevated. His amlodipine dose has been increased. His HCTZ dose will be increased. 8. Diabetes mellitus He will continue evaluation care per internal medicine. 9. Anemia He did receive 1 unit of PVCs. His H&H appears to be improved. He has now received a second unit of packed RBCs. His H and H has improved. He states he does feel better when he is up and ambulating with his breathing. At the same time he continues to require followup of his other physicians with further evaluation care of the etiology of his anemia. Comment: The patient's case was discussed and reviewed with the patient and his spouse . This note was generated using a voice recognition system and there may be incorrect words, spelling or punctuation that were not noted when reviewing the office note prior to saving.
[2018-07-28 10:00] VITALS: BP 145/70; PULSE 64; RESP 18; TEMP 36.6; O2SAT 96
--- NOTE | 2018-07-28 10:03 | CASEMGMT ---
SW completed advance directives with patient. Copies were made. Originals and copies given to patient. SW also put a copy of each document in his chart. Karol OHARA MSW
--- NOTE | 2018-07-28 11:18 | PCM.DC ---
- Discharge Diagnoses Current Active Problems: Current Active and Chronic Problems (Last Reviewed 07/26/18 @ 09:36 by Donny Ramsey MD) Dyspnea (Acute) CAD (coronary artery disease) (Chronic) Hydrocele (Acute) Hydrocele, bilateral (Acute) You will use the following diet at home:: Calorie/Carbohydrate Controlled (specify 1200, 1400, etc) - 1800 rossana Your food should be the consistency of: Regular Your liquids should be the consistency of: Regular/Thin Discharge Activity: Return to Normal Activity Weight Bearing Status: Full weight bearing Allergies/Adverse Reactions: Allergies doxycycline Allergy (Severe, Verified 07/24/18 17:41) Rash empagliflozin [From Jardiance] Adverse Reaction (Severe, Verified 07/24/18 17:41) yeast infection Medications to take at Discharge Albuterol IH (ProAir) [Proair Hfa] 2 puff INHALATION Q4H PRN PRN 06/24/15 Atorvastatin Calcium [Lipitor] 40 mg PO QHS 06/24/15 Budesonide/Formoterol 160/4.5 [Symbicort 160/4.5 Mcg Inhaler (SP)] 2 puff INHALATION BID 06/24/15 Loratadine [Claritin] 10 mg PO DAILY PRN 06/24/15 Metformin HCl [Glucophage] 1,000 mg PO BIDCM 06/24/15 Tolnaftate [Tinactin] 1 applic TP PRN PRN 06/24/15 Valsartan [Diovan] 320 mg PO DAILY 06/24/15 cholecalciferol (vitamin D3) 2,000 unit tablet 2,000 unit PO DAILY 04/14/18 clotrimazole 1 % topical cream 1 applic TOPICAL BID PRN 04/14/18 fluticasone 50 mcg/actuation nasal spray,suspension 1 spray INTRANASAL DAILY 04/14/18 gabapentin 100 mg capsule 100 mg PO QHS cap 04/14/18 glipizide 5 mg tablet 5 mg PO BID tab 04/14/18 multivitamin tablet 1 tab PO DAILY 04/14/18 nifedipine ER 90 mg tablet,extended release 90 mg PO DAILY 04/14/18 omega-3 fatty acids 1,000 mg capsule 2,000 mg PO BID cap 04/14/18 roflumilast 500 mcg tablet 500 mcg PO DAILY 04/14/18 tamsulosin 0.4 mg capsule 0.4 mg PO DAILY 04/14/18 tiotropium bromide 2.5 mcg/actuation mist for inhalation 2 puff INHALATION DAILY 04/14/18 vitamin B complex tablet 1 tab PO MOWEFR tab 04/14/18 Aspirin E.C. [Ecotrin] 81 mg PO DAILY 07/22/18 Clopidogrel Bisulfate [Plavix] 75 mg PO DAILY 07/22/18 Hydrochlorothiazide [Hctz] 12.5 mg PO DAILY 07/22/18 Potassium Chloride [K-Tab ER] 40 meq PO DAILY 07/22/18 Nitroglycerin 0.4 mg SL PRN PRN #30 tab.subl 07/23/18 Gabapentin [Neurontin] 200 mg PO DAILY 07/25/18 Albuterol Aerosols [Ventolin Aerosols] 1.25 mg INHALATION 4X/DAY #1 vial.neb. 07/28/18 Iron Polysaccharide Complex [Ferrex 150] 150 mg PO DAILYCM #30 cap 07/28/18 Metoprolol Tartrate [Lopressor (beta jd)] 50 mg PO BID #60 tab 07/28/18 Pantoprazole Sodium [Protonix] 20 mg PO DAILY #30 tab 07/28/18 The following prescriptions were given: Iron Polysaccharide Complex [Ferrex 150] 150 mg PO DAILYCM #30 cap Pantoprazole Sodium [Protonix] 20 mg PO DAILY #30 tab Metoprolol Tartrate [Lopressor (beta jd)] 50 mg PO BID #60 tab Albuterol Aerosols [Ventolin Aerosols] 1.25 mg INHALATION 4X/DAY #1 vial.neb. Primary Care Physician: [facility] [Primary Care Provider] - Please follow up with your Primary Care Physician in: in the next 2 weeks Test Results: Test results from this visit will be discussed in further detail at your follow-up appointment, if applicable. Please Follow Up With: Gianfranco Tavarez MD When: next week Please Follow Up With: Chad Reese MD When: as directed
--- NOTE | 2018-07-28 11:52 | PHA.DC.MR ---
Pharmacy Service has performed discharge medication reconciliation for this patient. The patient's discharge medication list was reviewed for discrepancies and discrepancies were resolved. Home Medications Albuterol IH (ProAir) [Proair Hfa] 2 puff INHALATION Q4H PRN PRN 06/24/15 Atorvastatin Calcium [Lipitor] 40 mg PO QHS 06/24/15 Budesonide/Formoterol 160/4.5 [Symbicort 160/4.5 Mcg Inhaler (SP)] 2 puff INHALATION BID 06/24/15 Loratadine [Claritin] 10 mg PO DAILY PRN 06/24/15 Metformin HCl [Glucophage] 1,000 mg PO BIDCM 06/24/15 Tolnaftate [Tinactin] 1 applic TP PRN PRN 06/24/15 Valsartan [Diovan] 320 mg PO DAILY 06/24/15 cholecalciferol (vitamin D3) 2,000 unit tablet 2,000 unit PO DAILY 04/14/18 clotrimazole 1 % topical cream 1 applic TOPICAL BID PRN 04/14/18 fluticasone 50 mcg/actuation nasal spray,suspension 1 spray INTRANASAL DAILY 04/14/18 gabapentin 100 mg capsule 100 mg PO QHS cap 04/14/18 glipizide 5 mg tablet 5 mg PO BID tab 04/14/18 multivitamin tablet 1 tab PO DAILY 04/14/18 nifedipine ER 90 mg tablet,extended release 90 mg PO DAILY 04/14/18 omega-3 fatty acids 1,000 mg capsule 2,000 mg PO BID cap 04/14/18 roflumilast 500 mcg tablet 500 mcg PO DAILY 04/14/18 tamsulosin 0.4 mg capsule 0.4 mg PO DAILY 04/14/18 tiotropium bromide 2.5 mcg/actuation mist for inhalation 2 puff INHALATION DAILY 04/14/18 vitamin B complex tablet 1 tab PO MOWEFR tab 04/14/18 Aspirin E.C. [Ecotrin] 81 mg PO DAILY 07/22/18 Clopidogrel Bisulfate [Plavix] 75 mg PO DAILY 07/22/18 Hydrochlorothiazide [Hctz] 12.5 mg PO DAILY 07/22/18 Potassium Chloride [K-Tab ER] 40 meq PO DAILY 07/22/18 Nitroglycerin 0.4 mg SL PRN PRN #30 tab.subl 07/23/18 Gabapentin [Neurontin] 200 mg PO DAILY 07/25/18 Albuterol Aerosols [Ventolin Aerosols] 1.25 mg INHALATION 4X/DAY #1 vial.neb. 07/28/18 Iron Polysaccharide Complex [Ferrex 150] 150 mg PO DAILYCM #30 cap 07/28/18 Metoprolol Tartrate [Lopressor (beta jd)] 50 mg PO BID #60 tab 07/28/18 Pantoprazole Sodium [Protonix] 20 mg PO DAILY #30 tab 07/28/18
--- NOTE | 2018-07-29 16:24 | CASEMGMT ---
TORRIE MILLIGAN Discharge F/U Phone Call LACE: 14 Strata: 4 Discharge date: 07/28/18 Call date: 07/29/18 Call time: [id number] Duration: 2 minutes Admission dx: Dyspnea, possible pulmonary htn Pt's answered phone and preferred to answer questions for pt at at this time. Per , pt has been 'doing real good' since discharge. She states no questions regarding discharge instructions or medications at this time. states that pt has f/u appt's scheduled and they plan to keep them. states no suggestions for H at this time. Per , 'everyone did a real good job.' voices no further questions/concerns/needs at this time. [place] TORRIE MILLIGAN
--- NOTE | 2018-07-29 20:51 | PCM.DC.SUM ---
Discharge Date and Diagnosis Date of Admission: 07/24/18 Date of Discharge: 07/28/18 - Primary Discharge Diagnosis 1 dyspnea on exertion-probably at least in part secondary to chronic iron deficiency anemia on a backdrop of COPD #2 coronary artery disease #3 iron deficiency anemia-requiring transfusion of packed red blood cells-etiology unknown #4 COPD-mild #5 obstructive sleep apnea #6 type 2 diabetes #7 hypertension #8 pulmonary hypertension-this appears to be mild to moderate in nature #9 bilateral hydroceles - Secondary Discharge Diagnosis Chronic Problems (Last Reviewed 07/26/18 @ 09:36 by Donny Ramsey MD) S/P PTCA (percutaneous transluminal coronary angioplasty) (Chronic) CAD (coronary artery disease) (Chronic) ELISHA (obstructive sleep apnea) (Chronic) Atherosclerotic heart disease of [place] coronary artery without angina pectoris (Chronic) Mild Hyperlipemia (Chronic) Type 2 diabetes mellitus (Chronic) Essential hypertension (Chronic) COPD (chronic obstructive pulmonary disease) (Chronic) Hospital Course and Treatment Operations: None Procedures: Blood transfusion, Cardiac catheterization Summary of Care Provided: The patient is a 68 year old M who was seen in the emergency room at [facility] with a chief complaint of increasing shortness of breath. Workup in the emergency room included an EKG which showed a normal sinus rhythm, CBC showed a normal white blood cell count, hemoglobin was low at 9.3, blood chemistries were unremarkable. Chest x-ray showed no acute disease. Ultrasound of the testicles was performed due to complaints of right testicular swelling, there was noted to be large complex hydroceles bilaterally. Cardiology was contacted and there was concern that the patient's dyspnea might be cardiac related. Patient had a normal stress test 2 days prior and his floor director felt it prudent to admit the patient for possible repeat cardiac catheterization. Patient was admitted to PCU, he was seen in consultation by cardiology, he was seen in consultation by urology, and patient underwent a cardiac catheterization which did not show evidence of occlusive disease. Patient was given blood transfusions in the hospital due to his low hemoglobin and iron deficiency, he was also given IV iron infusion. On 07/28/18, patient was seen and examined: On examination he appeared in good health and spirits. Vital signs as documented. Skin warm and dry and without overt rashes. Neck without JVD. Lungs clear. Heart exam notable for regular rhythm, normal sounds and absence of murmurs, rubs or gallops. Abdomen unremarkable and without evidence of organomegaly, masses, or abdominal aortic enlargement. Extremities nonedematous. Neuro: Cranial nerves II through XII are grossly intact, no focal motor deficits were noted, sensation to light touch and pinprick intact. Psych: Patient is alert and oriented x3, he does not appear anxious or depressed On 07/28/18, patient was seen and examined and felt to be in stable condition for discharge home, his dyspnea was believed to be secondary to a combination of iron deficiency anemia, deconditioning, and COPD. Patient was instructed to follow-up with the where he receives his medical care for investigation of his anemia-he had undergone endoscopic procedures before which did not identify any etiology such as blood loss in his GI tract. I urged the patient and his to talk to the about having him undergo a capsule endoscopy. - Physical Exam Vital Signs Temp Pulse Resp BP Pulse Ox 98 F 64 18 145/70 H 96 07/28/18 10:00 07/28/18 10:00 07/28/18 10:00 07/28/18 10:07/28/18 10:00 Oxygen Flow Rate (L/min) 3 Oxygen Delivery Method Room Air Weight: 106.6 kg Body Mass Index (BMI) 36.8 Intake and Output for Last 24 Hours 07/27/18 07/28/18 07/29/18 23:59 23:59 23:59 Intake Total 4210 / 4210 60 / 60 Output Total 1800 / 1800 Balance 2410 / 2410 60 / 60 Microbiology Past 72 Hours 07/27/18 03:25 Stool Occult Blood (TIMOTEO) - Final Stool Discharge Activity: Return to Normal Activity Weight Bearing Status: Full weight bearing Home Medications: Medications to take at Discharge Albuterol IH (ProAir) [Proair Hfa] 2 puff INHALATION Q4H PRN PRN 06/24/15 Atorvastatin Calcium [Lipitor] 40 mg PO QHS 06/24/15 Budesonide/Formoterol 160/4.5 [Symbicort 160/4.5 Mcg Inhaler (SP)] 2 puff INHALATION BID 06/24/15 Loratadine [Claritin] 10 mg PO DAILY PRN 06/24/15 Metformin HCl [Glucophage] 1,000 mg PO BIDCM 06/24/15 Tolnaftate [Tinactin] 1 applic TP PRN PRN 06/24/15 Valsartan [Diovan] 320 mg PO DAILY 06/24/15 cholecalciferol (vitamin D3) 2,000 unit tablet 2,000 unit PO DAILY 04/14/18 clotrimazole 1 % topical cream 1 applic TOPICAL BID PRN 04/14/18 fluticasone 50 mcg/actuation nasal spray,suspension 1 spray INTRANASAL DAILY 04/14/18 gabapentin 100 mg capsule 100 mg PO QHS cap 04/14/18 glipizide 5 mg tablet 5 mg PO BID tab 04/14/18 multivitamin tablet 1 tab PO DAILY 04/14/18 nifedipine ER 90 mg tablet,extended release 90 mg PO DAILY 04/14/18 omega-3 fatty acids 1,000 mg capsule 2,000 mg PO BID cap 04/14/18 roflumilast 500 mcg tablet 500 mcg PO DAILY 04/14/18 tamsulosin 0.4 mg capsule 0.4 mg PO DAILY 04/14/18 tiotropium bromide 2.5 mcg/actuation mist for inhalation 2 puff INHALATION DAILY 04/14/18 vitamin B complex tablet 1 tab PO MOWEFR tab 04/14/18 Aspirin E.C. [Ecotrin] 81 mg PO DAILY 07/22/18 Clopidogrel Bisulfate [Plavix] 75 mg PO DAILY 07/22/18 Hydrochlorothiazide [Hctz] 12.5 mg PO DAILY 07/22/18 Potassium Chloride [K-Tab ER] 40 meq PO DAILY 07/22/18 Nitroglycerin 0.4 mg SL PRN PRN #30 tab.subl 07/23/18 Gabapentin [Neurontin] 200 mg PO DAILY 07/25/18 Albuterol Aerosols [Ventolin Aerosols] 1.25 mg INHALATION 4X/DAY #1 vial.neb. 07/28/18 Iron Polysaccharide Complex [Ferrex 150] 150 mg PO DAILYCM #30 cap 07/28/18 Metoprolol Tartrate [Lopressor (beta jd)] 50 mg PO BID #60 tab 07/28/18 Pantoprazole Sodium [Protonix] 20 mg PO DAILY #30 tab 07/28/18 Following Prescrptions Were Given to Patient: Iron Polysaccharide Complex [Ferrex 150] 150 mg PO DAILYCM #30 cap Pantoprazole Sodium [Protonix] 20 mg PO DAILY #30 tab Metoprolol Tartrate [Lopressor (beta jd)] 50 mg PO BID #60 tab Albuterol Aerosols [Ventolin Aerosols] 1.25 mg INHALATION 4X/DAY #1 vial.neb. Primary Care Physician: [facility] [Primary Care Provider] - Please follow up with your Primary Care Physician in: in the next 2 weeks Please Follow Up With: Gianfranco Tavarez MD When: next week Please Follow Up With: Chad Reese MD When: as directed Please Follow Up With: Chad Reese MD When: as directed Disposition: Home Minutes spent on discharge:: 32 Patient Condition:: Stable Medical Necessity - Tobacco Use Smoking Status: Former smoker Meaningful Use Info Meaningful Use Diagnoses (Choose all that apply): None applicable Code Visit Inpatient E&M: 91793 Disch Hosp
--- NOTE | 2018-07-29 20:56 | DS.PCM_ITS ---
Discharge Date and Diagnosis Date of Admission: 07/24/18 Date of Discharge: 07/28/18 - Primary Discharge Diagnosis 1 dyspnea on exertion-probably at least in part secondary to chronic iron deficiency anemia on a backdrop of COPD #2 coronary artery disease #3 iron deficiency anemia-requiring transfusion of packed red blood cells- etiology unknown #4 COPD-mild #5 obstructive sleep apnea #6 type 2 diabetes #7 hypertension #8 pulmonary hypertension-this appears to be mild to moderate in nature #9 bilateral hydroceles - Secondary Discharge Diagnosis Chronic Problems (Last Reviewed 07/26/18 @ 09:36 by Donny Ramsey MD) S/P PTCA (percutaneous transluminal coronary angioplasty) (Chronic) CAD (coronary artery disease) (Chronic) ELISHA (obstructive sleep apnea) (Chronic) Atherosclerotic heart disease of [place] coronary artery without angina pectoris (Chronic) Mild Hyperlipemia (Chronic) Type 2 diabetes mellitus (Chronic) Essential hypertension (Chronic) COPD (chronic obstructive pulmonary disease) (Chronic) Hospital Course and Treatment Operations: None Procedures: Blood transfusion, Cardiac catheterization Summary of Care Provided: The patient is a 68 year old M who was seen in the emergency room at [facility] with a chief complaint of increasing shortness of breath. Workup in the emergency room included an EKG which showed a normal sinus rhythm, CBC showed a normal white blood cell count, hemoglobin was low at 9.3, blood chemistries were unremarkable. Chest x-ray showed no acute disease. Ultrasound of the testicles was performed due to complaints of right testicular swelling, there was noted to be large complex hydroceles bilaterally. Cardiology was contacted and there was concern that the patient's dyspnea might be cardiac related. Patient had a normal stress test 2 days prior and his barrel and receiver aligner felt it prudent to admit the patient for possible repeat cardiac catheterization. Patient was admitted to PCU, he was seen in consultation by cardiology, he was seen in consultation by urology, and patient underwent a cardiac catheterization which did not show evidence of occlusive disease. Nicole jurado was given blood transfusions in the hospital due to his low hemoglobin and iron deficiency, he was also given IV iron infusion. On 07/28/18, patient was seen and examined: On examination he appeared in good health and spirits. Vital signs as documented. Skin warm and dry and without overt rashes. Neck without JVD. Lungs clear. Heart exam notable for regular rhythm, normal sounds and absence of murmurs, rubs or gallops. Abdomen unremarkable and without evidence of organomegaly, masses, or abdominal aortic enlargement. Extremities nonedematous. Neuro: Cranial nerves II through XII are grossly intact, no focal motor deficits were noted, sensation to light touch and pinprick intact. Psych: Patient is alert and oriented x3, he does not appear anxious or depressed On 07/28/18, patient was seen and examined and felt to be in stable condition for discharge home, his dyspnea was believed to be secondary to a combination of iron deficiency anemia, deconditioning, and COPD. Patient was instructed to follow-up with the [facility] where he receives his medical care for investigation of his anemia-he had undergone endoscopic procedures before which did not identify any etiology such as blood loss in his GI tract. I urged the patient and his to talk to the [facility] about having him undergo a capsule endoscopy. - Physical Exam Vital Signs Temp Pulse Resp BP Pulse Ox 98 F 64 18 145/70 H 96 07/28/18 10:00 07/28/18 10:00 07/28/18 10:00 07/28/18 10:00 07/28/18 10:00 Oxygen Flow Rate (L/min) 3 Oxygen Delivery Method Room Air Weight: 106.6 kg Body Mass Index (BMI) 36.8 Intake and Output for Last 24 Hours 07/27/18 07/28/18 07/29/18 23:59 23:59 23:59 Intake Total 4210 / 4210 60 / 60 Output Total 1800 / 1800 Balance 2410 / 2410 60 / 60 Microbiology Past 72 Hours 07/27/18 03:25 Stool Occult Blood (TIMOTEO) - Final Stool Discharge Activity: Return to Normal Activity Weight Bearing Status: Full weight bearing Home Medications: Medications to take at Discharge Albuterol IH (ProAir) [Proair Hfa] 2 puff INHALATION Q4H PRN PRN 06/24/15 Atorvastatin Calcium [Lipitor] 40 mg PO QHS 06/24/15 Budesonide/Formoterol 160/4.5 [Symbicort 160/4.5 Mcg Inhaler (SP)] 2 puff INHALATION BID 06/24/15 Loratadine [Claritin] 10 mg PO DAILY PRN 06/24/15 Metformin HCl [Glucophage] 1,000 mg PO BIDCM 06/24/15 Tolnaftate [Tinactin] 1 applic TP PRN PRN 06/24/15 Valsartan [Diovan] 320 mg PO DAILY 06/24/15 cholecalciferol (vitamin D3) 2,000 unit tablet 2,000 unit PO DAILY 04/14/18 clotrimazole 1 % topical cream 1 applic TOPICAL BID PRN 04/14/18 fluticasone 50 mcg/actuation nasal spray,suspension 1 spray INTRANASAL DAILY 04/14/18 gabapentin 100 mg capsule 100 mg PO QHS cap 04/14/18 glipizide 5 mg tablet 5 mg PO BID tab 04/14/18 multivitamin tablet 1 tab PO DAILY 04/14/18 nifedipine ER 90 mg tablet,extended release 90 mg PO DAILY 04/14/18 omega-3 fatty acids 1,000 mg capsule 2,000 mg PO BID cap 04/14/18 roflumilast 500 mcg tablet 500 mcg PO DAILY 04/14/18 tamsulosin 0.4 mg capsule 0.4 mg PO DAILY 04/14/18 tiotropium bromide 2.5 mcg/actuation mist for inhalation 2 puff INHALATION DAILY 04/14/18 vitamin B complex tablet 1 tab PO MOWEFR tab 04/14/18 Aspirin E.C. [Ecotrin] 81 mg PO DAILY 07/22/18 Clopidogrel Bisulfate [Plavix] 75 mg PO DAILY 07/22/18 Hydrochlorothiazide [Hctz] 12.5 mg PO DAILY 07/22/18 Potassium Chloride [K-Tab ER] 40 meq PO DAILY 07/22/18 Nitroglycerin 0.4 mg SL PRN PRN #30 tab.subl 07/23/18 Gabapentin [Neurontin] 200 mg PO DAILY 07/25/18 Albuterol Aerosols [Ventolin Aerosols] 1.25 mg INHALATION 4X/DAY #1 vial.neb. 07/28/18 Iron Polysaccharide Complex [Ferrex 150] 150 mg PO DAILYCM #30 cap 07/28/18 Metoprolol Tartrate [Lopressor (beta jd)] 50 mg PO BID #60 tab 07/28/18 Pantoprazole Sodium [Protonix] 20 mg PO DAILY #30 tab 07/28/18 Following Prescrptions Were Given to Patient: Iron Polysaccharide Complex [Ferrex 150] 150 mg PO DAILYCM #30 cap Pantoprazole Sodium [Protonix] 20 mg PO DAILY #30 tab Metoprolol Tartrate [Lopressor (beta jd)] 50 mg PO BID #60 tab Albuterol Aerosols [Ventolin Aerosols] 1.25 mg INHALATION 4X/DAY #1 vial.neb. Primary Care Physician: [facility] [Primary Care Provider] - Please follow up with your Primary Care Physician in: in the next 2 weeks Please Follow Up With: Gianfranco Tavarez MD When: next week Please Follow Up With: Chad Reese MD When: as directed Please Follow Up With: Chad Reese MD When: as directed Disposition: Home Minutes spent on discharge:: 32 Patient Condition:: Stable Medical Necessity - Tobacco Use Smoking Status: Former smoker Meaningful Use Info Meaningful Use Diagnoses (Choose all that apply): None applicable Code Visit Inpatient E&M: 60588 Disch Hosp
== END 2018-07-28 11:46 | disposition home or self-care (01) | DRG 812 ==
LOC: ED 18:41 → PCU 23:39
PROVIDERS: Internal Medicine Cardiovascular Disease; Student in an Organized Health Care Education/Training Program; Admitting Provider Hospitalist; Emergency Provider Emergency Medicine; Visit Provider Internal Medicine
DX: D50.9 Iron deficiency anemia, unspecified (principal); J44.9 Chronic obstructive pulmonary disease, unspecified; I25.10 Atherosclerotic heart disease of native coronary artery without angina pectoris; B35.3 Tinea pedis; G47.33 Obstructive sleep apnea (adult) (pediatric); I27.20 Pulmonary hypertension, unspecified; N43.3 Hydrocele, unspecified; E11.42 Type 2 diabetes mellitus with diabetic polyneuropathy; Z99.81 Dependence on supplemental oxygen; I10 Essential (primary) hypertension; E78.5 Hyperlipidemia, unspecified; R06.09 Other forms of dyspnea; Z87.891 Personal history of nicotine dependence; Z79.84 Long term (current) use of oral hypoglycemic drugs; Z95.5 Presence of coronary angioplasty implant and graft
CPT/HCPCS: 36415; 71045; 71275; 76870; 78452; 80048; 81001; 82274; 82728; 82962; 83540; 83550; 83735; 83880; 84443; 84484; 85025; 85379; 85610; 85730; 86850; 86900; 86920; 86922; 87633; 93005; 93017; 93306; 93458; 93976; 94640; 97116; 97161; 97165; 99152; 99153; 99218; 99283; 99285; A9500; J1756; J7030; J7040; P9016; Q9967; A4216; C1769; C1894; G0378; J2785

== ENCOUNTER → 2018-08-25 15:34 | Outpatient (CLI) | payer MEDICARE, SELFPAY ==
[2018-05-01 14:21] VITALS: BMI 36.8
[2018-07-25 00:14] VITALS: BMI 36.8
[2018-08-25 18:13] LABS: Hematocrit 31.3 % (40-54); Hemoglobin 10.4 g/dl (13.0-16.5); Mean Corp Hgb Conc 33.2 g/gl (32-36); Mean Corpuscular Hgb 30.1 pg (27.0-32.0); Mean Corpuscular Volume 90.5 fL (80-94); Mean Platelet Vol. 8.8 fl (6.2-12.0); Platelet Count 241 K/mm3 (150-450); RBC Distribution Width CV 16.8 % (11.6-14.6); RBC Distribution Width SD 53.6 fl (35.1-43.9); Red Blood Count 3.46 M/mm3 (4.6-6.2); White Blood Count 7.8 K/mm3 (4.4-11.0)
[2018-08-25 18:17] LABS: Scan Indicated on CBC? Y/N NO
[2018-08-25 19:18] LABS: Anion Gap 12 (5-15); BUN 10 mg/dL (7-18); BUN/Creat Ratio 10.2 RATIO (10-20); Calcium,Total 9.3 mg/dL (8.5-10.1); Chloride 92 mmol/L (98-107); Creatinine, Serum 0.98 mg/dL (0.70-1.30); EST Glomerular Filtration Rate 81 mL/min (>60); Est Glom Filt Rate - Afr Amer 98 mL/min (>60); Ferritin 70 ng/mL (26-388); Glucose 161 mg/dL (74-106); Iron 43 ug/dL (65-175); Potassium 3.5 mmol/L (3.5-5.1); Sodium Level 130 mmol/L (136-145); Thyroid Stim Hormone (TSH) 0.71 uIU/mL (0.358-3.74)
== END ==
PROVIDERS: Family Provider Family Medicine; PCP Family Medicine; Visit Provider Family Medicine
DX: D64.9 Anemia, unspecified (principal); E87.1 Hypo-osmolality and hyponatremia
CPT/HCPCS: 36415; 80048; 82728; 83540; 84443; 85027

== ENCOUNTER → 2018-11-24 13:12 | Outpatient (CLI) | payer MEDICARE, SELFPAY ==
[2018-05-01 14:21] VITALS: BMI 36.8
[2018-10-15 13:04] VITALS: BMI 37.3
[2018-11-24 14:03] LABS: Hematocrit 35.4 % (40-54); Hemoglobin 11.8 g/dl (13.0-16.5); Immature Platelet Fraction 1.7 % (1.0-7.9); Mean Corp Hgb Conc 33.3 g/gl (32-36); Mean Corpuscular Hgb 30.9 pg (27.0-32.0); Mean Corpuscular Volume 92.7 fL (80-94); Platelet Count 231 K/mm3 (150-450); RBC Distribution Width CV 14.3 % (11.6-14.6); RBC Distribution Width SD 47.8 fl (35.1-43.9); RET-HE 36.8 pg (30-35); Red Blood Count 3.82 M/mm3 (4.6-6.2); White Blood Count 7.4 K/mm3 (4.4-11.0)
[2018-11-24 14:11] LABS: Anion Gap 11 (5-15); BUN 11 mg/dL (7-18); BUN/Creat Ratio 10.7 RATIO (10-20); Calcium,Total 9.3 mg/dL (8.5-10.1); Chloride 99 mmol/L (98-107); Creatinine, Serum 1.03 mg/dL (0.70-1.30); EST Glomerular Filtration Rate 77 mL/min (>60); Est Glom Filt Rate - Afr Amer 93 mL/min (>60); Ferritin 17 ng/mL (26-388); Glucose 114 mg/dL (74-106); Iron 79 ug/dL (65-175); Iron Binding Capacity,Total 362 ug/dL (250-450); Potassium 3.8 mmol/L (3.5-5.1); Sodium Level 135 mmol/L (136-145)
[2018-11-24 14:12] LABS: Scan Indicated on CBC? Y/N NO
== END ==
PROVIDERS: Family Provider Family Medicine; PCP Family Medicine; Referring Provider Family Medicine; Visit Provider Family Medicine
DX: D64.9 Anemia, unspecified (principal); E87.1 Hypo-osmolality and hyponatremia; I10 Essential (primary) hypertension
CPT/HCPCS: 36415; 80048; 82728; 83540; 83550; 85027; 85045

== ENCOUNTER → 2019-02-17 | Outpatient (CLI) | payer MEDICARE, SELFPAY ==
[2018-05-01 14:21] VITALS: BMI 36.8
[2018-10-15 13:04] VITALS: BMI 37.3
[2019-02-17 12:21] LABS: Hematocrit 33.8 % (40-54); Hemoglobin 11.2 g/dL (13.0-16.5); Mean Corp Hgb Conc 33.1 g/dL (32-36); Mean Corpuscular Hgb 31.1 pg (27.0-32.0); Mean Corpuscular Volume 93.9 fL (80-94); Mean Platelet Vol. 10.4 fl (6.2-12.0); Platelet Count 133 K/mm3 (150-450); RBC Distribution Width CV 14.6 % (11.6-14.6); RBC Distribution Width SD 50.2 fl (35.1-43.9); White Blood Count 4.7 K/mm3 (4.4-11.0)
[2019-02-17 12:56] LABS: Ferritin 71 ng/mL (26-388); Iron 55 ug/dL (65-175)
== END | disposition home or self-care (01) ==
LOC: MTLAB 09:50
PROVIDERS: Family Provider Family Medicine; PCP Family Medicine; Referring Provider Family Medicine; Visit Provider Family Medicine
DX: D64.9 Anemia, unspecified (principal); E87.6 Hypokalemia
CPT/HCPCS: 36415; 82728; 83540; 85027

== ENCOUNTER → 2019-09-27 14:40 | Outpatient (CLI) | payer MEDICARE, SELFPAY ==
[2018-05-01 14:21] VITALS: BMI 36.8
[2019-04-22 08:47] VITALS: BMI 36.3
--- NOTE | 2019-09-27 14:43 | RAD_ITS ---
STUDY: X-RAY CHEST REASON FOR EXAM: Male, 69 years old. COPD TECHNIQUE: PA and lateral views of the chest. COMPARISON: 07/24/2018. FINDINGS: Minimal bilateral basilar atelectasis, remainder of the lungs are clear and expanded. There is no demonstrated pleural abnormality. Normal size heart. Normal mediastinum and darryl. Normal visualized pulmonary arteries. Normal visualized aortic arch and descending thoracic aorta. There are diffuse degenerative changes of the visualized thoracic spine. There is degenerative osteoarthritis of the bilateral shoulders. There is no demonstrated abnormality of the visualized soft tissue structures of the upper abdomen. RAD/Chest PA and Lateral IMPRESSION: No acute cardiopulmonary disease. Electronically Signed: Diann Connell MD at 0:43 EDT , Service support ,
[2019-09-27 17:44] LABS: Absolute Lymphocyte Count 1.35 X10^3/uL (0.83-4.51); Basophil# 0.02 X10^3/uL; Basophil% 0.2 % (0-1); Hematocrit 32.4 % (40-54); Hemoglobin 10.5 g/dL (13.0-16.5); Lymphocyte # 1.35 X10^3/ul (4.0); Lymphocyte % 11.4 % (19-41); Mean Corp Hgb Conc 32.4 g/dL (32-36); Mean Corpuscular Hgb 29.7 pg (27.0-32.0); Mean Corpuscular Volume 91.8 fL (80-94); Mean Platelet Vol. 9.8 fl (6.2-12.0); Monocyte# 0.38 X10^3/uL; Monocyte% 3.2 % (0-10); NRBC Flagged by Analyzer 0 % (0-5); Neutrophil # 10.02 X10^3/uL (2.7-7.7); Neutrophil % 84.3 % (47-70); Platelet Count 243 K/mm3 (150-450); RBC Distribution Width SD 49.6 fl (35.1-43.9); Red Blood Count 3.53 M/mm3 (4.6-6.2); White Blood Count 11.9 K/mm3 (4.4-11.0)
[2019-09-27 18:09] LABS: ALB/GLOB Ratio 1.2 RATIO (0.9-2.4); AST(SGOT) 18 U/L (15-37); Alanine Aminotransfer ALT/SGPT 42 U/L (16-61); Albumin, Serum 3.8 g/dL (3.2-5.0); Alkaline Phosphatase 92 U/L (45-117); Anion Gap 8 (5-15); BUN 15 mg/dL (7-18); BUN/Creat Ratio 13.9 RATIO (10-20); Calcium,Total 8.9 mg/dL (8.5-10.1); Chloride 99 mmol/L (98-107); Creatinine, Serum 1.08 mg/dL (0.70-1.30); EST Glomerular Filtration Rate 72 mL/min (>60); Est Glom Filt Rate - Afr Amer 88 mL/min (>60); Globulin 3.3 g/dL (2.2-4.2); Glucose 194 mg/dL (74-106); Potassium 4.5 mmol/L (3.5-5.1); Protein, Total 7.1 g/dL (6.4-8.2); Sodium Level 132 mmol/L (136-145); Thyroid Stim Hormone (TSH) 0.35 uIU/mL (0.358-3.74)
[2019-09-28 14:32] LABS: Free T3 2.5 pg/mL (2.18-3.98); T4 Total, Thyroxin 8.3 ug/dL (4.5-12.1)
== END ==
PROVIDERS: PCP Family Medicine; Referring Provider Family Medicine; Visit Provider Family Medicine
DX: J44.9 Chronic obstructive pulmonary disease, unspecified (principal); E87.1 Hypo-osmolality and hyponatremia; R89.9 Unspecified abnormal finding in specimens from other organs, systems and tissues; E11.9 Type 2 diabetes mellitus without complications; I27.20 Pulmonary hypertension, unspecified
CPT/HCPCS: 36415; 71046; 80053; 84436; 84443; 84481; 85025

== ENCOUNTER → 2019-09-28 16:12 | Outpatient (CLI) | payer MEDICARE, SELFPAY ==
[2018-05-01 14:21] VITALS: BMI 36.8
[2019-04-22 08:47] VITALS: BMI 36.3
[2019-09-28 17:47] LABS: Osmolality, Serum 279 mOsm/KG (280-301)
== END ==
PROVIDERS: PCP Family Medicine; Referring Provider Internal Medicine Pulmonary Disease; Visit Provider Internal Medicine Pulmonary Disease
DX: J44.9 Chronic obstructive pulmonary disease, unspecified (principal)
CPT/HCPCS: 83930; 87070; 87077; 87205

== ENCOUNTER → 2020-03-09 13:09 | Outpatient (CLI) | payer MEDICARE, SELFPAY ==
[2018-05-01 14:21] VITALS: BMI 36.8
[2020-01-28 10:30] VITALS: BMI 37.3
--- NOTE | 2020-03-09 13:12 | CT_ITS ---
STUDY: LOW DOSE CT LUNG CANCER SCREENING REASON FOR EXAM: Male, 70 years old. LUNG NODULE FOLLOW UP/TOBACCO ABUSE -- CHRONIC SOB,DIAB,HTN,HEART STENT X2,PRIOR SMOKER RADIATION DOSAGE (If Supplied By Facility): CTDIvol = ( 4.02 ) mGy, DLP = ( 133.41 ) mGycm TECHNIQUE: No contrast was administered. Low dose technique was utilized (average mAS-38 and kVp 120). 1.25 mm axial source images with a slice interval of 1.25-mm were reconstructed in lung windows. 2.5 mm axial source images with a slice interval of 2.5-mm were reconstructed in lung windows. 5.0 mm axial source images with a slice interval of 5.0-mm were reconstructed in soft tissue windows. Nodule measured using lung windows on PACS and/or independent workstation with automated measurement of minimum and maximum diameter. Nodule measurement reported as average diameter rounded to the nearest whole number. Growth is defined as an increase ins size of greater than 1.5 mm. COMPARISON: Comparison is made with prior study dated 07/25/2018. NODULES: No significant nodular density is seen. Emphysema: Hyperinflation. Emphysematous changes seen in both lungs worse in the upper lobes. Endobronchial lesion: Aorta: Atherosclerotic plaque formation of the aortic arch and descending thoracic aorta. Coronary arteries: Coronary artery calcification. Pulmonary artery: Unremarkable. Mediastinal nodes: Small benign-appearing mediastinal lymph nodes. Other chest and abdominal findings: Degenerative changes of the thoracic spine. CT/Low Dose CT Lung Screening IMPRESSION: Lung-RADS category 2 - Continue annual screening with LDCT in 12 months. IMPORTANT NOTES FOR USE: ACR Lung-RADS Version 1.0 Assessment Categories Release Date: November 08, 2013 Category: Coded 0-4 bases on nodule(s) with highest degree of suspicion. Negative screen is defined as categories 1 and 2; a positive screen is defined as categories 3 and 4. Category 3 and 4A nodules that are unchanged on interval CT should be coded as category 2, and individuals returned to screening in 12 months. Category 4X: Category 3 or 4 nodules with additional imaging findings that increase the suspicion of lung cancer, such as spiculation, GGN that doubles in size in 1 year, enlarged lymph notes, etc. Category Modifiers: S (significant finding unrelated to lung cancer) and C (prior history of treated lung cancer) may be added to the 0-4 Lung-RADS Electronically Signed: Mihir Muller, at 13:52 EDT , Service support ,
== END ==
PROVIDERS: PCP Family Medicine; Referring Provider Internal Medicine Pulmonary Disease; Visit Provider Internal Medicine Pulmonary Disease
DX: R91.1 Solitary pulmonary nodule (principal); Z87.891 Personal history of nicotine dependence
CPT/HCPCS: G0297

== ENCOUNTER → 2020-05-03 09:27 | Outpatient (CLI) | payer MEDICARE, SELFPAY ==
[2018-05-01 14:21] VITALS: BMI 36.8
[2020-01-28 10:30] VITALS: BMI 37.3
[2020-05-03 10:42] LABS: Osmolality, Serum 284 mOsm/KG (280-301)
[2020-05-03 10:53] LABS: ALB/GLOB Ratio 1.1 RATIO (0.9-2.4); AST(SGOT) 19 U/L (15-37); Alanine Aminotransfer ALT/SGPT 25 U/L (16-61); Albumin, Serum 3.9 g/dL (3.2-5.0); Alkaline Phosphatase 108 U/L (45-117); Anion Gap 10 (5-15); BUN 10 mg/dL (7-18); BUN/Creat Ratio 9.2 RATIO (10-20); Calcium,Total 8.9 mg/dL (8.5-10.1); Chloride 99 mmol/L (98-107); Cholesterol 96 mg/dL (200); Creatinine, Serum 1.09 mg/dL (0.70-1.30); EST Glomerular Filtration Rate 72 mL/min (>60); Est Glom Filt Rate - Afr Amer 87 mL/min (>60); Globulin 3.5 g/dL (2.2-4.2); Glucose 141 mg/dL (74-106); High Density Lipoprotein 33 mg/dL; Potassium 3.9 mmol/L (3.5-5.1); Protein, Total 7.4 g/dL (6.4-8.2); Sodium Level 135 mmol/L (136-145); T4 Free Direct 0.99 ng/dL (0.76-1.46); Thyroid Stim Hormone (TSH) 1.53 uIU/mL (0.358-3.74); Triglycerides 227 mg/dL; Very Low Density Lipoprotein 45 mg/dL (5-40)
[2020-05-03 12:26] LABS: Urine Sodium 40 mmol/L (Not Establ.)
[2020-05-03 12:28] LABS: Osmolality, Urine 283 mOsm/KG
== END ==
PROVIDERS: PCP Family Medicine; Referring Provider Family Medicine; Visit Provider Family Medicine
DX: E87.1 Hypo-osmolality and hyponatremia (principal); E11.9 Type 2 diabetes mellitus without complications
CPT/HCPCS: 36415; 80053; 80061; 83930; 83935; 84300; 84439; 84443

== ENCOUNTER → 2020-09-20 13:53 | Outpatient (CLI) | payer MEDICARE, SELFPAY ==
[2018-05-01 14:21] VITALS: BMI 36.8
[2020-01-28 10:30] VITALS: BMI 37.3
== END ==
PROVIDERS: PCP Family Medicine; Referring Provider Family Medicine; Visit Provider Family Medicine
DX: Z20.822 Contact with and (suspected) exposure to COVID-19 (principal)
CPT/HCPCS: 87635; U0005; U0003

== ENCOUNTER 2020-10-13 18:18 | Observation (INO) | payer OTHER, MEDICARE, SELFPAY ==
[2018-05-01 14:21] VITALS: BMI 36.8
[2020-01-28 10:30] VITALS: BMI 37.3
[2020-10-13] VITALS (8 sets, daily range): BP systolic 122–138; BP diastolic 72–98; PULSE 66–163; RESP 25–26; TEMP 36.6–37.1; O2SAT 94–97; BMI 35.0; BMI 36.6
[2020-10-13] MEDS: Adenosine 6 MG/2 ML Syringe IV (18:32)
--- NOTE | 2020-10-13 18:33 | EKG12_ITS ---
Test Reason : DYSRHYTHMIA Blood Pressure : / mmHG Vent. Rate : 162 BPM Atrial Rate : 163 BPM P-R Int : 000 ms QRS Dur : 096 ms QT Int : 258 ms P-R-T Axes : 000 053 217 degrees QTc Int : [address] & T wave abnormality, consider inferolateral ischemia Abnormal ECG Confirmed by JAYY SIMMS, ALONZO ([id number]), commissioning editor JAYLYN CHENG ([id number]) on 10/18/2020 7:40:01 AM Referred By: NELIDA Confirmed By:ALONZO HOPE MD
[2020-10-13] MEDS: dilTIAZem 25 MG/5 ML Vial 20 MG IV BOLUS (18:37)
[2020-10-13 18:45] LABS: Absolute Lymphocyte Count 2.33 X10^3/uL (0.83-4.51); Basophil# 0.04 X10^3/uL; Basophil% 0.4 % (0-1); Eosinophil# 0.07 X10^3/uL; Eosinophils% 0.7 % (0-5); Lymphocyte # 2.33 X10^3/ul (4.0); Mean Corp Hgb Conc 31.6 g/dL (32-36); Mean Corpuscular Volume 85.4 fL (80-94); Mean Platelet Vol. 9.2 fl (6.2-12.0); Monocyte# 0.66 X10^3/uL; Monocyte% 6.5 % (0-10); NRBC Flagged by Analyzer 0 % (0-5); Neutrophil # 6.98 X10^3/uL (2.7-7.7); Neutrophil % 69.1 % (47-70); Platelet Count 339 K/mm3 (150-450); RBC Distribution Width SD 55.4 fl (35.1-43.9); Red Blood Count 4.45 M/mm3 (4.6-6.2); White Blood Count 10.1 K/mm3 (4.4-11.0)
[2020-10-13] MEDS: 0.9% Normal Saline 1,000 ML 150 ML IV (18:48)
--- NOTE | 2020-10-13 18:50 | ED.DCSUM_ITS ---
- ER Visit Summary Date of Service: 10/13/20 Chief Complaint: [Not feeling well] History of Present Illness: The patient is a 70 M [presents to the emergency department with a complaint of not feeling well since this morning. Patient complained of some lightheadedness and states that he had some chest discomfort that was dull earlier this morning but none currently. Patient states that he is chronically short of breath. He denies recent illness. Patient does have history of diabetes, hypertension, high cholesterol, COPD, coronary artery disease, and pulmonary hypertension. Patient has had 2 cardiac stents about 3 years ago.] Physical Examination: [HEENT-PERRLA, EOMI. Cranial nerves II through XII grossly intact. TMs clear. Mucous membranes moist. No adenopathy. Cardiovascular-regular rate and tachycardic with a heart rate of 160. No murmurs auscultated. Lungs-clear to auscultation, chest wall stable without crepitus or subcu emphysema Abdomen-normoactive bowel sounds, soft, nontender, no rebound or rigidity, no peritoneal signs. Extremities-intact ?4, normal range of motion, normal pulses, atraumatic] Test Results: [EKG obtained on arrival showed a supraventricular tachycardia narrow complex with a rate of 162 bpm. Given the rate I suspect a flutter with block versus SVT.] CBC with differential obtained was unremarkable. Chemistry showed a sodium 130, potassium 3.4, chloride 96, CO2 24, glucose 155, BUN 19 and creatinine 1.43. Troponin was 0.244. Chest x-ray 1 view obtained interpreted by myself is chronic changes and some scarring in the right lower lobe with no evidence of infiltrate or any acute disease process. Emergency Department Course and Treatment: [IV line established. Patient placed on a front desk monitor. Patient received initially adenosine 6 mg IV which did slow his rate down and was at this point able to see intermittent P waves and flutter waves and patient then immediately went back into the abnormal tachycardia. Patient was subsequently given Cardizem 20 mg IV bolus and this slowed his heart rate down into the 80s and now can clearly see flutter waves consistent with atrial flutter.] Patient was started on heparin drip. Treatment Plan: [Admit] Disposition: [Admit] Impression: [New onset atrial flutter Elevated troponin] This note was generated with [employer] software. It may contain incorrect words, spelling, and punctuation that were not noted in review of the chart prior to signing ED Disposition - Plan for ED Patient: Referrals: Umesh Orr MD [Primary Care Provider] -
--- NOTE | 2020-10-13 18:54 | RAD_ITS ---
INDICATION: chest pain EXAMINATION/TECHNIQUE: X-RAY - XR Chest 1 View COMPARISON: 09/27/2019. FINDINGS: Bibasilar atelectasis. Lungs are otherwise clear. The cardiomediastinal silhouette is unremarkable. No pleural effusion or pneumothorax. No acute osseous abnormalities. RAD/Chest 1 View (Portable) IMPRESSION: No acute radiographic abnormalities. Electronically Signed: Leonel Casiano MD at 19:17 EDT Tel , Service support ,
[2020-10-13 18:58] LABS: Anion Gap 10 (5-15); BUN 19 mg/dL (7-18); BUN/Creat Ratio 13.3 RATIO (10-20); Calcium,Total 9.6 mg/dL (8.5-10.1); Chloride 96 mmol/L (98-107); Creatinine, Serum 1.43 mg/dL (0.70-1.30); EST Glomerular Filtration Rate 52 mL/min (>60); Est Glom Filt Rate - Afr Amer 63 mL/min (>60); Estimated Creatinine Clearance 49.44 ml/min; Glucose 155 mg/dL (74-106); Potassium 3.4 mmol/L (3.5-5.1); Sodium Level 130 mmol/L (136-145)
[2020-10-13] MEDS: HEPARIN/D5w 25,000 UNITS 25,000 UNITS/250 ML IV.SOLN. 15 UNITS IV (19:29)
[2020-10-13] MEDS: Heparin Injection (Vial) 5,000 UNIT/ML VIAL 8000 UNIT IV (19:29)
[2020-10-13 19:45] LABS: Partial Thromboplast Time 37.9 Seconds (24.1-36.2)
--- NOTE | 2020-10-13 20:12 | ECHOD_ITS ---
Reason For Study: Afib, Aflutter Procedure This was a 2D Doppler, Color Flow transthoracic echocardiogram. Exam performed portable in patient room. Left Ventricle Normal left ventricle. Left ventricular systolic function is normal. The estimated ejection fraction is 65 %. Stage 2 diastolic dysfunction. Increased LA filling pressure. No regional wall motion abnormalities noted. Right Ventricle Normal right ventricle. Normal systolic function. Atria Normal left atrium. Normal right atrium. Mitral Valve Moderate (2+) mitral valve insufficiency. Tricuspid Valve Mild (1+) tricuspid valve insufficiency. Pulmonary artery systolic pressure is 35-40 mmHg. Mild pulmonary hypertension. Aortic Valve Aortic sclerosis, no stenosis. Pulmonic Valve Trivial pulmonic valve insufficiency. Great Vessels The pulmonary artery is normal size. The inferior vena cava is dilated. Inferior vena cava collapse with respiration. Pericardium/Pleural No pericardial effusion. MMode/2D Measurements & Calculations LVIDd: 5.0 cm IVSd: 1.1 cm Ao root diam: 2.4 cm LVIDs: 3.3 cm LVPWd: 1.4 cm RVDd: 4.1 cm FS: 33.4 % LAV(MOD-bp): 70.1 ml LVAd ap4: 31.0 cm2 SV(MOD-sp4): 59.2 ml LAV(MOD-bp) Indexed: 31.8 ml/m2 EDV(MOD-sp4): 99.9 ml LAV(MOD-sp2): 73.7 ml EDV(sp4-el): 98.5 ml LAV(MOD-sp4): 59.1 ml LVAs ap4: 18.1 cm2 ESV(MOD-sp4): 40.7 ml ESV(sp4-el): 39.4 ml EF(MOD-sp4): 59.2 % EF(sp4-el): 60.0 % SV(sp4-el): 59.1 ml LA A4 area: 21.0 cm2 LA dimension(2D): 4.7 cm RA A4 area: 16.7 cm2 Doppler Measurements & Calculations MV E max trip: 117.1 cm/sec Lat Peak E' Trip: 8.5 cm/sec Med Peak E' Trip: 5.6 cm/sec MV A max trip: 62.6 cm/sec E/E' lat: 13.8 E/E' med: 21.1 MV E/A: 1.9 Ao V2 max: 172.1 cm/sec LV V1 max: 129.4 cm/sec PA V2 max: 122.3 cm/sec Ao max P.9 mmHg LV V1 max P.7 mmHg Ao V2 mean: 123.5 cm/sec Ao mean P.6 mmHg Ao V2 VTI: 39.0 cm TR max trip: 303.9 cm/sec TR max P.9 mmHg ECHO/Echo Complete Interpretation Summary Left ventricular systolic function is normal. The estimated ejection fraction is 65 %. Increased LA filling pressure Moderate (2+) mitral valve insufficiency. Mild (1+) tricuspid valve insufficiency. Pulmonary artery systolic pressure is 35-40 mmHg. Mild pulmonary hypertension. The inferior vena cava is dilated Inferior vena cava collapse with respiration. Stage 2 diastolic dysfunction. Ordering Physician: Jordy Eagle Referring Physician: Leonel Orr Performed By: Roxanne Gonzalez, TIFFANIE, RVT
--- NOTE | 2020-10-13 20:19 | PCM.HP.STD ---
Problem List (1) New onset atrial fibrillation Status: Inactive (2) Presence of stent in coronary artery Status: Chronic Comment: PTCA/CHASIDY to prox RCA 05/01/18 (3) Hypokalemia Status: Acute (4) ELISHA (obstructive sleep apnea) Status: Chronic (5) Atherosclerotic heart disease of [place] coronary artery without angina pectoris Status: Chronic Qualifiers: [place] vs. transplanted heart: [place] heart Qualified Code(s): I25.10 - Atherosclerotic heart disease of [place] coronary artery without angina pectoris (6) Hyperlipemia Status: Chronic Qualifiers: Hyperlipidemia type: unspecified Qualified Code(s): E78.5 - Hyperlipidemia, unspecified (7) Type 2 diabetes mellitus Status: Chronic (8) Essential hypertension Status: Chronic (9) COPD (chronic obstructive pulmonary disease) Status: Chronic Qualifiers: COPD type: unspecified COPD Qualified Code(s): J44.9 - Chronic obstructive pulmonary disease, unspecified (10) New onset atrial flutter Status: Acute History of Present Illness Date of Admission: 10/14/20 Chief Complaint: elevated heart rate The patient is a 70 year old M with a significant history of hypertension; obesity; diabetes mellitus; CAD status post stent; obstructive apnea who presents emergency department with elevated heart rate. Patient symptoms started with malaise and lightheadedness. Associated with his symptoms is some mild shortness of breath. He checked his heart rate and found that his heart rate was fluctuating and with highest heart rate of about 160. He denies any gayle palpitations. At the emergency department initially patient was found to have narrow complex tachycardia. He was given adenosine which broke his rhythm into A flutter. Subsequently he was given Cardizem IV bolus. Past Medical History Past Medical History (Chronic Problems): Chronic Problems (Last Reviewed 10/14/20 @ 01:[address] Jordy Eagle MD) Presence of stent in coronary artery (Chronic ~05/01/18) PTCA/CHASIDY to prox RCA 05/01/18 ELISHA (obstructive sleep apnea) (Chronic) Atherosclerotic heart disease of [place] coronary artery without angina pectoris (Chronic) Hyperlipemia (Chronic) Type 2 diabetes mellitus (Chronic) Essential hypertension (Chronic) COPD (chronic obstructive pulmonary disease) (Chronic) Medical History: Medical History (Last Reviewed 10/14/20 @ 01:[address] Jordy Eagle MD) Presence of stent in coronary artery (Chronic) Onset Date: ~05/01/18 Z95.5 PTCA/CHASIDY to prox RCA 05/01/18 Hypokalemia (Acute) E87.6 ELISHA (obstructive sleep apnea) (Chronic) G47.33 Atherosclerotic heart disease of [place] coronary artery without angina pectoris (Chronic) I25.10 Hyperlipemia (Chronic) E78.5 Type 2 diabetes mellitus (Chronic) E11.9 Essential hypertension (Chronic) I10 COPD (chronic obstructive pulmonary disease) (Chronic) J44.9 Alcoholism F10.20 Dyspnea R06.00 Hydrocele N43.3 Hydrocele, bilateral N43.3 Lung nodule, multiple R91.8 Pulmonary HTN I27.20 CAD (coronary artery disease) I25.10 Allergies doxycycline Allergy (Severe, Verified 10/13/20 18:24) Rash empagliflozin [From Jardiance] Adverse Reaction (Severe, Verified 10/13/20 18:24) yeast infection Home Medications: Ambulatory Orders Medication Instructions Recorded Albuterol IH (ProAir) [Proair Hfa] 2 puff INHALATION Q4H PRN PRN 06/24/15 Atorvastatin Calcium [Lipitor] 40 mg PO QHS 06/24/15 Budesonide/Formoterol 160/4.5 2 puff INHALATION BID 06/24/15 [Symbicort 160/4.5 Mcg Inhaler (SP)] Loratadine [Claritin] 10 mg PO DAILY PRN 06/24/15 Valsartan [Diovan] 320 mg PO DAILY 06/24/15 metFORMIN HCl [Glucophage] 1,000 mg PO BIDCM 06/24/15 cholecalciferol (vitamin D3) 50 2,000 unit PO DAILY 04/14/18 mcg (2,000 unit) tablet clotrimazole 1 % topical cream 1 applic TOPICAL BID PRN 04/14/18 glipizide 5 mg tablet 5 mg PO BID tab 04/14/18 nifedipine 90 mg tablet,extended 90 mg PO DAILY 04/14/18 release omega-3 fatty acids 1,000 mg 2,000 mg PO BID cap 04/14/18 capsule roflumilast 500 mcg tablet 500 mcg PO DAILY 04/14/18 tamsulosin 0.4 mg capsule 0.4 mg PO DAILY 04/14/18 tiotropium bromide 2.5 2 puff INHALATION DAILY 04/14/18 mcg/actuation mist for inhalation vitamin B complex 1 tab PO MOWEFR tab 04/14/18 Pantoprazole Sodium [Protonix] 20 mg PO DAILY #30 tab 07/28/18 albuterol sulfate 2.5 mg INHALATION 4X/DAY PRN ml 10/15/18 fluticasone propionate 50 1 spray INTRANASAL DAILY PRN 10/15/18 mcg/actuation nasal spray,suspension gabapentin 100 mg capsule 100 mg PO TID cap 10/15/18 magnesium oxide 500 mg capsule 500 mg PO DAILY cap 10/15/18 montelukast 10 mg tablet 10 mg PO QPM 10/15/18 torsemide 10 mg tablet 5 mg PO DAILY tab 10/15/18 aspirin 81 mg tablet,delayed 81 mg PO DAILY 04/22/19 release metoprolol tartrate 50 mg tablet 50 mg PO BID #180 tab 09/13/19 Surgical History: Surgical History (Last Reviewed 10/14/20 @ 01:[address] Jordy Eagle MD) Presence of coronary angioplasty implant and graft Onset Date: ~05/01/18 Z95.5 PTCA/CHASIDY to prox RCA 05/01/18 History of cardiac catheterization Z98.890 07/30/10, 05/01/2018, 07/27/2018 History of hip replacement Z96.649 1984, revision 2010, repair of hip socket 1980 Surgical History: angioplasty Smoking Status: Former smoker Tobacco Use: Cigarettes - *Family History Maternal Family History: Family History (Last Reviewed 10/14/20 @ 01:[address] Jordy Eagle MD) Father COPD (chronic obstructive pulmonary disease) Heart disease Mother CAD (coronary artery disease) Myocardial infarction CVA (cerebral vascular accident) Diabetes Brother CAD (coronary artery disease) Pacemaker Diabetes History of coronary artery bypass surgery Brother Brain aneurysm Review of Systems Constitutional: Denies: Chills, Fever, Weight Change HEENT: Denies: Head Aches, Sinus Congestion, Sinus Drainage Cardiovascular: Denies: Chest Pain, Palpitations Respiratory: Denies: Cough, Shortness of breath at rest, Sputum production Gastrointestinal: Denies: Abdominal Pain, Nausea, Vomiting Genitourinary: Denies: Dysuria Musculoskeletal: Denies: Joint Pain, Joint Tenderness Skin: Denies: Rash, Wounds Neurological: Denies: Numbness, Tingling, Focal weakness Psychiatric: Denies: Anxiety, Depression, Homicidal Ideations, Suicidal Ideations Hematologic/ Lymphatic: Denies: Easy Bruising, Easy Bleeding VTE Information - Inpt Only VTE Present on Admission: No VTE Mechan Device Prophylaxis: None VTE Pharm Prophylaxis ordered?: No Reason prophylaxis not ordered:: Treatment Not Indicated Patient Problems: Active and Suspected Problems (Last Reviewed 10/14/20 @ 01:[address] Jordy Eagle MD) Hypokalemia (Acute) - Physical Exam Vitals/I&O's: Vital Signs Temp Pulse Resp BP Pulse Ox 98.7 F 124 H 26 H 122/88 H 95 10/13/20 20:04 10/13/20 20:04 10/13/20 20:04 10/13/20 20:04 10/13/20 20:04 Oxygen Delivery Method Room Air Weight: 106.1 kg Body Mass Index (BMI) 36.6 General: Alert, Oriented x3, Cooperative HEENT: Atraumatic, PERRLA, EOMI, Normocephalic Neck: Supple, No JVD, Negative Carotid Bruits Lungs: Clear to auscultation, Normal air movement Cardiovascular: Regular rate, No murmurs Abdomen: Bowel Sounds Present, Soft, Non Tender Extremities: No edema, Capillary Refill Less than 3 Seconds Skin: No rashes, No breakdown Musculoskeletal: No Tenderness to Palpation of Joints or Extremities Neurological: Cranial nerves II-XII grossly intact Psych/Mental Status: Normal Affect, Appropriate Laboratory Results 10/13/20 18:23: WBC 10.1, RBC 4.45 L, Hgb 12.0 L, Hct 38.0 L, MCV 85.4, MCH 27.0, MCHC 31.6 L, RDW Std Deviation 55.4 H, RDW Coeff of Anthony 18.0 H, Plt Count 339, MPV 9.2, Immature Gran % (Auto) 0.300, Neut % (Auto) 69.1, Lymph % (Auto) 23.0, [place] % (Auto) 6.5, Eos % (Auto) 0.7, Baso % (Auto) 0.4, Absolute Neuts (auto) 7.0, Absolute Lymphs (auto) 2.33, Nucleated RBC % 0 10/13/20 18:23: Sodium 130 L, Potassium 3.4 L, Chloride 96 L, Carbon Dioxide 24.0, Anion Gap 10, BUN 19 H, Creatinine 1.43 H, Estim Creat Clear Calc 49.44, Est GFR (MDRD) Af Amer 63, Est GFR (MDRD) Non-Af 52 L, BUN/Creatinine Ratio 13.3, Glucose 155 H, Calcium 9.6, Troponin I 0.244 H 10/13/20 18:23: APTT 37.9 H 10/13/20 18:23: TSH Pending 10/13/20 18:23: Magnesium Pending Current Medications Acetaminophen (Acetaminophen 325 Mg Tablet) 650 mg PO Q6H PRN PRN PRN Reason: Pain Score 1-10/Temp > 100.7 F Albuterol Sulfate (Albuterol 2.5 Mg/3 Ml Vial.Neb.) 2.5 mg INHALATION Q2H PRN PRN PRN Reason: SOB &/OR WHEEZING Aspirin (Aspirin E.C. 81 Mg Tablet) 81 mg PO DAILY [facility] Atorvastatin Calcium (Atorvastatin Calcium 40 Mg Tablet) 40 mg PO QHS [facility] Clotrimazole (Clotrimazole 1 Applic Tube) 1 applic TOPICAL BID PRN; Protocol PRN Reason: ITCHING Dextrose (Dextrose 50%-Water 25 Gm/50 Ml Disp.Syrin) 0 gm IV X1 PRN; Protocol PRN Reason: Hypoglycemia Enoxaparin Sodium (Enoxaparin 100 Mg/Ml Syringe) 110 mg 1 mg/kg (110 mg) SC Q12 [facility] Fluticasone Propionate (Fluticasone 0.05% 1 [place] Nasal.Sry) 1 spray NASAL DAILY PRN PRN Reason: allergies Gabapentin (Gabapentin 100 Mg Capsule) 100 mg PO TID [facility] Glipizide (Glipizide 5 Mg Tablet) 5 mg PO BID [facility] Glucagon (Glucagon 1 Mg/Ml Syringe) 1 mg IM .X1 PRN PRN Reason: Hypoglycemia Sodium Chloride () 1,000 mls @ 75 mls/hr IV .[id number] [facility] Insulin Human Lispro (Insulin Lispro 100 Unit/Ml Insuln.Pen) 0 unit SC ACHS [facility]; Protocol Loratadine (Loratadine 10 Mg Tablet) 10 mg PO DAILY PRN PRN Reason: ALLERGIES Melatonin (Melatonin 3 Mg Tablet) 3 mg PO QHS PRN PRN PRN Reason: INSOMNIA Metoprolol Tartrate (Metoprolol Tartrate 50 Mg Tablet) 100 mg PO BID [facility] Montelukast Sodium (Montelukast 10 Mg Tablet) 10 mg PO QPM [facility] Nifedipine (Nifedipine 90 Mg Tablet) 90 mg PO DAILY [facility] Non-Formulary Medication (Budesonide/Formoterol 160/4.5) 2 puff Inhalation BID [facility] Non-Formulary Medication (Cholecalciferol (Vitamin D3)) 2,000 unit PO DAILY [facility] Non-Formulary Medication (Magnesium Oxide) 500 mg PO DAILY [facility] Non-Formulary Medication ([place]-3 Fatty Acids [[place]-3]) 2,000 mg PO BID [facility] Non-Formulary Medication (Roflumilast [Daliresp]) 500 mcg PO DAILY [facility] Non-Formulary Medication (Tiotropium [place]) 2 puff INHALATION DAILY [facility] Non-Formulary Medication (Vitamin B Complex [Balanced B-50]) 1 tab PO MOWEFR [facility] Ondansetron HCl (Ondansetron 4 Mg/2 Ml Vial) 4 mg IV Q8H PRN PRN PRN Reason: NAUSEA/VOMITING Pantoprazole Sodium (Pantoprazole Sodium 20 Mg Tablet) 20 mg PO DAILY [facility] Potassium Chloride (Potassium Chloride Oral Tablet 20 Meq) 60 meq PO X1 ONE Stop: 10/13/20 20:13 Senna/Docusate Sodium (Senna/Docusate Sodium 1 Tablet) 2 tablet PO BID PRN PRN PRN Reason: Constipation Tamsulosin HCl (Tamsulosin Hcl 0.4 Mg Capsule) 0.4 mg PO DAILY [facility] Assessment/Plan All Active Problems (Last Reviewed 10/14/20 @ 01:[address] Jordy Eagle MD) New onset atrial flutter (Acute) Hypokalemia (Acute) Stable angina (Resolved) The patient is a 70 year old M with a significant history of hypertension; COPD; diabetes mellitus; CAD status post stent; and obstructive sleep apnea who presents to the emergency department with elevated heart rate; malaise; lightheadedness and found to be in A. flutter with RVR. New onset A. flutter with RVR Place on PCU on telemetry Radiologist impression of chest x-ray: No acute radiographic abnormalities. Ultra chest x-ray image was independently interpreted. I agree radiologist interpretation. Serial cardiac enzymes Obtain echo [id number] 2 score elevated. Started on heparin drip at emergency department. Transitioned to Lovenox therapeutic dose subcutaneous. Replace potassium and check magnesium. Check TSH. With Cardizem IV bolus patient converted to sinus rhythm. We will continue home metoprolol p.o. CHADD Creatinine on presentation was 1.43. Review of old record shows a creatinine baseline around 1.08. BUN is 19. BUN is elevated above previous values. BUN over creatinine is 13.3. Gentle IV hydration ordered. Trend BMP. Avoid nephrotoxic's. Hold home torsemide and valsartan. Elevated troponin Elevated troponin likely secondary to demand ischemia from atrial fibrillation with RVR. Trend troponin. Review of records show that patient had a cardiac catheterization on 07/27/2018. Conclusion was: Elevated left ventricular end-diastolic pressure; normal left ventricular size, wall motion, and systolic function. LVEF by left ventriculogram was 65%. [place] multivessel CAD. Medical therapy with follow-up with primary care physician was recommended. Echocardiogram on 07/25/2018 estimated ejection fraction of 65%. Diastolic function was indeterminate. Mild valvular abnormalities noted. Right ventricular systolic pressure was 36 mmHg. Started on heparin drip at emergency department and transition to Lovenox therapeutic dose subcutaneous. Aspirin continued. High intensity statin continued Hypovolemic hyponatremia Mild Gentle normal saline hydration ordered. Trend BMP. Obesity BMI:36.6. Complicates care. Lifestyle modification recommended. Diabetes mellitus Patient with mild hyperglycemia on presentation Glipizide continued. Metformin held. Accu-Chek with correction scale insulin ordered. Obstructive sleep apnea Home CPAP/BiPAP continued Hypertension Blood pressure is not within goal Received Cardizem bolus at emergency department. Home metoprolol and nifedipine continued. Hold Valsartan held secondary to CHADD PRN Labetalol ordered Trend blood pressure and adjust blood pressure medications. COPD Stable Home inhalers converted to scheduled DuoNeb. PRN Albuterol ordered. DVT prophylaxis Subcutaneous Lovenox ordered. OBSV E&M: [id number] Initial observation care L3
[2020-10-13 20:39] LABS: Magnesium 1.7 mg/dL (1.6-2.6)
--- NOTE | 2020-10-13 20:39 | EKG12_ITS ---
Test Reason : RHYTHM CHANGE Blood Pressure : / mmHG Vent. Rate : 067 BPM Atrial Rate : 067 BPM P-R Int : 156 ms QRS Dur : 096 ms QT Int : 406 ms P-R-T Axes : 063 054 103 degrees QTc Int : 429 ms Normal sinus rhythm Nonspecific T wave abnormality Abnormal ECG When compared with ECG of 27-JUL-2018 05:29, Nonspecific T wave abnormality now evident in Inferior leads Nonspecific T wave abnormality, worse in Anterolateral leads Confirmed by JAYY SIMMS, ALONZO ([id number]), tape editor ELLIOTT AMEZCUA ([id number]) on 10/20/2020 3:08:12 PM Referred By: ALBINA Confirmed By:ALONZO HOPE MD
[2020-10-13 20:46] LABS: Thyroid Stim Hormone (TSH) 1.31 uIU/mL (0.358-3.74)
[2020-10-13] MEDS: Potassium Chloride Oral Tablet 20 MEQ 60 MEQ PO (21:26)
[2020-10-13] MEDS: 0.9% Normal Saline 1,000 ML 75 ML IV (21:26)
[2020-10-13] MEDS: Metoprolol Tartrate 50 MG Tablet PO (22:51)
[2020-10-13] MEDS: Enoxaparin 120 MG/0.8 ML Syringe 110 MG SC (22:52)
[2020-10-13] MEDS: Omega-3 Acid Ethyl Esters 1 GM Capsule 2 GM PO (22:53)
[2020-10-13] MEDS: Montelukast 10 MG Tablet PO (22:54)
[2020-10-13] MEDS: Gabapentin 100 MG Capsule PO (22:55)
[2020-10-13] MEDS: Atorvastatin Calcium 40 MG Tablet PO (22:56)
[2020-10-13] MEDS: Insulin Lispro 100 UNIT/ML INSULN.PEN SC (23:07)
[2020-10-13 23:15] LABS: Bedside Glucose 159 mg/dL (70-110)
[2020-10-14] VITALS (7 sets, daily range): BP systolic 108–148; BP diastolic 50–77; PULSE 55–70; RESP 12–18; TEMP 36.2–37.1; O2SAT 94–98
[2020-10-14] MEDS: Magnesium Sulfate 4gm/100mL 4 GM/100 ML IV.SOLN. IV (01:43)
[2020-10-14 05:56] LABS: Absolute Lymphocyte Count 1.66 X10^3/uL (0.83-4.51); Absolute Neutrophil Count 4.6 X10^3/uL (2.0-7.7); Basophil# 0.04 X10^3/uL; Basophil% 0.6 % (0-1); Eosinophil# 0.12 X10^3/uL; Eosinophils% 1.7 % (0-5); Hematocrit 30.5 % (40-54); Hemoglobin 9.3 g/dL (13.0-16.5); Lymphocyte # 1.66 X10^3/ul (4.0); Lymphocyte % 24.1 % (19-41); Mean Corp Hgb Conc 30.5 g/dL (32-36); Mean Corpuscular Hgb 26.8 pg (27.0-32.0); Mean Corpuscular Volume 87.9 fL (80-94); Mean Platelet Vol. 8.9 fl (6.2-12.0); Monocyte# 0.45 X10^3/uL; Monocyte% 6.5 % (0-10); NRBC Flagged by Analyzer 0 % (0-5); Neutrophil # 4.59 X10^3/uL (2.7-7.7); Neutrophil % 66.8 % (47-70); Platelet Count 246 K/mm3 (150-450); RBC Distribution Width CV 18.2 % (11.6-14.6); RBC Distribution Width SD 57.7 fl (35.1-43.9); Red Blood Count 3.47 M/mm3 (4.6-6.2); White Blood Count 6.9 K/mm3 (4.4-11.0)
[2020-10-14 06:29] LABS: Anion Gap 7 (5-15); BUN 16 mg/dL (7-18); Calcium,Total 8.5 mg/dL (8.5-10.1); Chloride 101 mmol/L (98-107); Creatinine, Serum 1.07 mg/dL (0.70-1.30); EST Glomerular Filtration Rate 73 mL/min (>60); Est Glom Filt Rate - Afr Amer 88 mL/min (>60); Estimated Creatinine Clearance 61.78 ml/min; Glucose 165 mg/dL (74-106); Potassium 4.2 mmol/L (3.5-5.1); Sodium Level 134 mmol/L (136-145)
[2020-10-14] MEDS: Insulin Lispro 100 UNIT/ML INSULN.PEN SC (06:40)
[2020-10-14] MEDS: Gabapentin 100 MG Capsule PO (06:40)
[2020-10-14 06:51] LABS: Bedside Glucose 174 mg/dL (70-110)
[2020-10-14] MEDS: Ipratropium/Albuterol Sulfate 3 ML AMPUL.NEB INHALATION (07:24)
[2020-10-14] MEDS: Budesonide Respules 0.5 MG/2 ML AMPUL.NEB. INHALATION (07:24)
[2020-10-14] MEDS: Enoxaparin 120 MG/0.8 ML Syringe 110 MG SC (09:19)
[2020-10-14] MEDS: Cholecalciferol (VIT D3) 25 MCG TABLET (1,000 UNITS) 50 MCG PO (09:19)
[2020-10-14] MEDS: Magnesium Chloride 64 MG Delay Rel.Tablet 128 MG PO (09:20)
[2020-10-14] MEDS: Pantoprazole Sodium 20 MG Tablet PO (09:20)
[2020-10-14] MEDS: Omega-3 Acid Ethyl Esters 1 GM Capsule 2 GM PO (09:20)
[2020-10-14] MEDS: Tamsulosin HCl 0.4 MG Capsule PO (09:20)
[2020-10-14] MEDS: NIFEdipine 90 MG Tablet PO (09:20)
[2020-10-14] MEDS: Aspirin E.C. 81 MG Tablet PO (09:20)
[2020-10-14] MEDS: glipiZIDE 5 MG Tablet PO (09:20)
[2020-10-14] MEDS: Metoprolol Tartrate 50 MG Tablet PO (09:21)
--- NOTE | 2020-10-14 09:50 | CASEMGMT ---
TORRIE MILLIGAN NOTE: Pt being discharged home on Eliquis. TORRIE MILLIGAN to room to talk with pt. Pt given Eliquis 30-day free savings card and instructed on use. He denies having any questions. Pt denies having other discharge needs. Paola BUIN TORRIE CM
--- NOTE | 2020-10-14 10:30 | PCM.DC ---
- Discharge Diagnoses Current Active Problems: Current Active and Chronic Problems (Last Reviewed 10/14/20 @ 01:[address] Jordy Eagle MD) New onset atrial flutter (Acute) Presence of stent in coronary artery (Chronic ~05/01/18) PTCA/CHASIDY to prox RCA 05/01/18 Hypokalemia (Acute) ELISHA (obstructive sleep apnea) (Chronic) Atherosclerotic heart disease of [place] coronary artery without angina pectoris (Chronic) Hyperlipemia (Chronic) Type 2 diabetes mellitus (Chronic) Essential hypertension (Chronic) COPD (chronic obstructive pulmonary disease) (Chronic) You will use the following diet at home:: No restrictions Your food should be the consistency of: Regular Your liquids should be the consistency of: Regular/Thin Discharge Activity: Return to Normal Activity Allergies/Adverse Reactions: Allergies doxycycline Allergy (Severe, Verified 10/13/20 18:24) Rash empagliflozin [From Jardiance] Adverse Reaction (Severe, Verified 10/13/20 18:24) yeast infection Medications to take at Discharge Albuterol IH (ProAir) [Proair Hfa] 2 puff INHALATION Q4H PRN PRN 06/24/15 Atorvastatin Calcium [Lipitor] 40 mg PO QHS 06/24/15 Budesonide/Formoterol 160/4.5 [Symbicort 160/4.5 Mcg Inhaler (SP)] 2 puff INHALATION BID 06/24/15 Loratadine [Claritin] 10 mg PO DAILY PRN 06/24/15 Valsartan [Diovan] 320 mg PO DAILY 06/24/15 metFORMIN HCl [Glucophage] 1,000 mg PO BIDCM 06/24/15 cholecalciferol (vitamin D3) 50 mcg (2,000 unit) tablet 2,000 unit PO DAILY 04/14/18 glipizide 5 mg tablet 5 mg PO BID tab 04/14/18 nifedipine 90 mg tablet,extended release 90 mg PO DAILY 04/14/18 omega-3 fatty acids 1,000 mg capsule 2,000 mg PO BID cap 04/14/18 roflumilast 500 mcg tablet 500 mcg PO DAILY 04/14/18 tamsulosin 0.4 mg capsule 0.4 mg PO DAILY 04/14/18 tiotropium bromide 2.5 mcg/actuation mist for inhalation 2 puff INHALATION DAILY 04/14/18 vitamin B complex 1 tab PO MOWEFR tab 04/14/18 Pantoprazole Sodium [Protonix] 20 mg PO DAILY #30 tab 07/28/18 albuterol sulfate 2.5 mg INHALATION 4X/DAY PRN ml 10/15/18 fluticasone propionate 50 mcg/actuation nasal spray,suspension 1 spray INTRANASAL DAILY PRN 10/15/18 gabapentin 100 mg capsule 100 mg PO TID cap 10/15/18 magnesium oxide 500 mg capsule 500 mg PO DAILY cap 10/15/18 montelukast 10 mg tablet 10 mg PO QPM 10/15/18 torsemide 10 mg tablet 5 mg PO DAILY tab 10/15/18 aspirin 81 mg tablet,delayed release 81 mg PO DAILY 04/22/19 metoprolol tartrate 50 mg tablet 50 mg PO BID #180 tab 09/13/19 Apixaban [Eliquis] 5 mg PO BID #60 tablet 10/14/20 The following prescriptions were given: Apixaban [Eliquis] 5 mg PO BID #60 tablet Transmission Status: Pending to [facility] Primary Care Physician: Umesh Orr MD [Primary Care Provider] - Please follow up with your Primary Care Physician in: Within the next 2 weeks Test Results: Test results from this visit will be discussed in further detail at your follow-up appointment, if applicable. Please Follow Up With: Dr. Reese When: Within the next 2 weeks Proposed Discharge Date: 10/14/20
[2020-10-14 10:34] LABS: Magnesium 2.6 mg/dL (1.6-2.6)
[2020-10-14 10:39] LABS: BNP,B-Type NATRIURETIC PEPTIDE 128.6 pg/mL (0-100)
--- NOTE | 2020-10-14 11:23 | PCM.DC.SUM ---
<Christos Moreno - Last Filed: 10/14/20 11:23> Discharge Date and Diagnosis - Problem List Patient Problems: Active and Suspected Problems (Last Reviewed 10/14/20 @ 01:[address] Jordy Eagle MD) New onset atrial flutter (Acute) Hypokalemia (Acute) Date of Admission: 10/14/20 Date of Discharge: 10/14/20 - Primary Discharge Diagnosis Acute Problems: Active Problems (Last Reviewed 10/14/20 @ 01:[address] Jordy Eagle MD) New onset atrial flutter (Acute) Hypokalemia (Acute) - Secondary Discharge Diagnosis Chronic Problems: Chronic Problems (Last Reviewed 10/14/20 @ 01:[address] 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 Electronically Signed: Leonel Casiano MD at 19:17 EDT Tel , Service support , Echocardiogram 10/13/20 20:12 Interpretation Summary Left ventricular systolic function is normal. The estimated ejection fraction is 65 %. Increased LA filling pressure Moderate (2+) mitral valve insufficiency. Mild (1+) tricuspid valve insufficiency. Pulmonary artery systolic pressure is 35-40 mmHg. Mild pulmonary hypertension. The inferior vena cava is dilated Inferior vena cava collapse with respiration. Stage 2 diastolic dysfunction. Ordering Physician: Jordy Eagle Referring Physician: Leonel Orr Performed By: Roxanne Gonzalez RDCS, RVT Operations: None Procedures: 2-D Echocardiogram Summary of Care Provided: Patient is a 70-year-old male who presented to the ED on 10/14/2020 with a chief complaint of malaise and lightheadedness, patient was found to have an elevated heart rate as well as being in A-flutter with RVR and hypokalemia. Troponins were elevated throughout cycle. BNP only mildly above normal at 128.6. No leukocytosis on CBC, however patient did have a hemoglobin of 9.3. Echocardiogram obtained today revealed normal left ventricular systolic function, an EF at 65%, moderate mitral valve insufficiency, mild pulmonary hypertension with a pulmonary artery systolic pressure between 35 and 40 mmHg and stage II diastolic dysfunction. Due to the patient's prior history of CAD and previous cardiac management, the rehabilitation specialist did not feel that these findings warranted any further inpatient care and that patient was eligible for outpatient management. Patient was not on any anticoagulation on admission, [id number] was 2, patient placed on Eliquis at discharge. 1) A. Flutter with RVR Assessment - CXR showed no evidence of an acute cardiopulmonary process - Echocardiogram stable, see above - Troponins elevated throughout cycle, likely elevated to demand ischemia secondary to a flutter with RVR - Cardiology recommends outpatient medical management - TSH unremarkable - [id number] 2 Plan - Eliquis initiated at discharge - Continue home rate control via metoprolol - Follow-up with Dr. Reese within the next 2 weeks 2) Hypokalemia Assessment - 4.2 on 10/14/2020, stable - Magnesium 2.6 on 10/14/2020 Plan - Resolved 3) CHADD Assessment - 1.07 on 10/14/2020, stable Plan - Continue home torsemide and valsartan on discharge 4) Elevated Troponin Assessment - Likely secondary to a flutter with RVR - Elevated throughout cycle - See above for echocardiogram results Plan - High intensity statin continued on discharge - Eliquis initiated at discharge 5) Hypertension Assessment - 148/77, stable - BNP not elevated Plan - Continue home metoprolol, nifedipine and valsartan at discharge Patient seen by Christos Moreno PA-C, under the supervision of Dr. Serrato. Patient Problems: Active and Suspected Problems (Last Reviewed 10/14/20 @ 01:[address] Jordy Eagle MD) New onset atrial flutter (Acute) Hypokalemia (Acute) Subjective: Patient is a 70-year-old male comfortably sitting upright in bed, alert and oriented x3. Patient reports resolution of his symptoms on admission to include lightheadedness and malaise. Patient does endorse being a little tired, but attributes this to a poor night's sleep in the PCU. - Physical Exam Vitals/I&O's: Vital Signs Temp Pulse Resp BP Pulse Ox 98.2 F 70 18 148/77 H 94 10/14/20 09:12 10/14/20 09:21 10/14/20 09:12 10/14/20 09:21 10/14/20 09:12 Oxygen Flow Rate (L/min) 2 Oxygen Delivery Method Room Air Weight: 233 lb 14.567 oz Body Mass Index (BMI) 36.6 Intake and Output for Last 24 Hours 10/12/20 10/13/20 10/14/20 23:59 23:59 23:59 Intake Total 407.75 / 407.75 1091.25 / 1091.25 Output Total 750 / 750 Balance 407.75 / 32.75 341.25 / 341.25 General: Alert, Oriented x3, Cooperative HEENT: Atraumatic, PERRLA, EOMI, Normocephalic Neck: Supple, No JVD, Negative Carotid Bruits Lungs: Clear to auscultation Cardiovascular: Regular rate, No murmurs Abdomen: Bowel Sounds Present, Soft, Non Tender Extremities: No edema, Capillary Refill Less than 3 Seconds Skin: No rashes, No breakdown Musculoskeletal: No Tenderness to Palpation of Joints or Extremities Neurological: Cranial nerves II-XII grossly intact Psych/Mental Status: Normal Affect, Appropriate Laboratory Results 10/13/20 18:23: WBC 10.1, RBC 4.45 L, Hgb 12.0 L, Hct 38.0 L, MCV 85.4, MCH 27.0, MCHC 31.6 L, RDW Std Deviation 55.4 H, RDW Coeff of Anthony 18.0 H, Plt Count 339, MPV 9.2, Immature Gran % (Auto) 0.300, Neut % (Auto) 69.1, Lymph % (Auto) 23.0, Hanson % (Auto) 6.5, Eos % (Auto) 0.7, Baso % (Auto) 0.4, Absolute Neuts (auto) 7.0, Absolute Lymphs (auto) 2.33, Nucleated RBC % 0 10/13/20 18:23: Sodium 130 L, Potassium 3.4 L, Chloride 96 L, Carbon Dioxide 24.0, Anion Gap 10, BUN 19 H, Creatinine 1.43 H, Estim Creat Clear Calc 49.44, Est GFR (MDRD) Af Amer 63, Est GFR (MDRD) Non-Af 52 L, BUN/Creatinine Ratio 13.3, Glucose 155 H, Calcium 9.6, Troponin I 0.244 H 10/13/20 18:23: APTT 37.9 H 10/13/20 18:23: TSH 1.31 10/13/20 18:23: Magnesium 1.7 10/13/20 21:34: Troponin I 0.256 H 10/13/20 23:02: POC Glucose 159 H 10/14/20 00:45: Troponin I 0.252 H 10/14/20 05:32: WBC 6.9, RBC 3.47 L, Hgb 9.3 L, Hct 30.5 L, MCV 87.9, MCH 26.8 L, MCHC 30.5 L, RDW Std Deviation 57.7 H, RDW Coeff of Anthony 18.2 H, Plt Count 246, MPV 8.9, Immature Gran % (Auto) 0.300, Neut % (Auto) 66.8, Lymph % (Auto) 24.1, Hanson % (Auto) 6.5, Eos % (Auto) 1.7, Baso % (Auto) 0.6, Absolute Neuts (auto) 4.6, Absolute Lymphs (auto) 1.66, Nucleated RBC % 0 10/14/20 05:32: Sodium 134 L, Potassium 4.2, Chloride 101, Carbon Dioxide 26.0, Anion Gap 7, BUN 16, Creatinine 1.07, Estim Creat Clear Calc 61.78, Est GFR (MDRD) Af Amer 88, Est GFR (MDRD) Non-Af 73, BUN/Creatinine Ratio 15.0, Glucose 165 H, Calcium 8.5 10/14/20 05:32: Magnesium 2.6 10/14/20 05:32: B-Natriuretic Peptide 128.6 H 10/14/20 06:37: POC Glucose 174 H Discharge Diet: No Restrictions Discharge Activity: Return to Normal Activity Home Medications: Medications to take at Discharge Albuterol IH (ProAir) [Proair Hfa] 2 puff INHALATION Q4H PRN PRN 06/24/15 Atorvastatin Calcium [Lipitor] 40 mg PO QHS 06/24/15 Budesonide/Formoterol 160/4.5 [Symbicort 160/4.5 Mcg Inhaler (SP)] 2 puff INHALATION BID 06/24/15 Loratadine [Claritin] 10 mg PO DAILY PRN 06/24/15 Valsartan [Diovan] 320 mg PO DAILY 06/24/15 metFORMIN HCl [Glucophage] 1,000 mg PO BIDCM 06/24/15 cholecalciferol (vitamin D3) 50 mcg (2,000 unit) tablet 2,000 unit PO DAILY 04/14/18 glipizide 5 mg tablet 5 mg PO BID tab 04/14/18 nifedipine 90 mg tablet,extended release 90 mg PO DAILY 04/14/18 omega-3 fatty acids 1,000 mg capsule 2,000 mg PO BID cap 04/14/18 roflumilast 500 mcg tablet 500 mcg PO DAILY 04/14/18 tamsulosin 0.4 mg capsule 0.4 mg PO DAILY 04/14/18 tiotropium bromide 2.5 mcg/actuation mist for inhalation 2 puff INHALATION DAILY 04/14/18 vitamin B complex 1 tab PO MOWEFR tab 04/14/18 Pantoprazole Sodium [Protonix] 20 mg PO DAILY #30 tab 07/28/18 albuterol sulfate 2.5 mg INHALATION 4X/DAY PRN ml 10/15/18 fluticasone propionate 50 mcg/actuation nasal spray,suspension 1 spray INTRANASAL DAILY PRN 10/15/18 gabapentin 100 mg capsule 100 mg PO TID cap 10/15/18 magnesium oxide 500 mg capsule 500 mg PO DAILY cap 10/15/18 montelukast 10 mg tablet 10 mg PO QPM 10/15/18 torsemide 10 mg tablet 5 mg PO DAILY tab 10/15/18 aspirin 81 mg tablet,delayed release 81 mg PO DAILY 04/22/19 metoprolol tartrate 50 mg tablet 50 mg PO BID #180 tab 09/13/19 Apixaban [Eliquis] 5 mg PO BID #60 tablet 10/14/20 Following Prescriptions Were Given to Patient: Apixaban [Eliquis] 5 mg PO BID #60 tablet Transmission Status: Received by [facility] Primary Care Physician: Umesh Orr MD [Primary Care Provider] - Please follow up with your Primary Care Physician in: Within the next 2 weeks Please Follow Up With: Dr. Reese When: Within the next 2 weeks Please Follow Up With: Umesh Orr MD Disposition: Home Minutes spent on discharge:: 35 Patient Condition:: Good Medical Necessity - Tobacco Use Smoking Status: Former smoker Tobacco Use: Cigarettes Meaningful Use Info Meaningful Use Diagnoses (Choose all that apply): None applicable <Paintsil,[place] - Last Filed: 10/14/20 12:27> Discharge Date and Diagnosis - Primary Discharge Diagnosis Acute Problems: Active Problems (Last Reviewed 10/14/20 @ 01:[address] Jordy Eagle MD) New onset atrial flutter (Acute) Hypokalemia (Acute) - Secondary Discharge Diagnosis Chronic Problems: Chronic Problems (Last Reviewed 10/14/20 @ 01:[address] 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 He had checked his heart rate and found it to be 160s as well as his oxygen sat was low. He was evaluated in the emergency room and found to have narrow complex tachycardia. He was given adenosine which showed underlying atrial flutter. He received Cardizem bolus. He was admitted to the telemetry floor and maintained on metoprolol and heparin drip. Troponins were also slightly elevated. Patient's 2D echo showed EF of 65%, stage II diastolic dysfunction. His BNPep was 128. His heart rate was controlled the next morning. He was discharged on metoprolol, valsartan, apixaban. He will follow-up with his rehabilitation specialist in the outpatient in 2 weeks. - Physical Exam Vitals/I&O's: Vital Signs Temp Pulse Resp BP Pulse Ox 98.2 F 70 18 148/77 H 94 10/14/20 09:12 10/14/20 09:21 10/14/20 09:12 10/14/20 09:21 10/14/20 09:12 Oxygen Flow Rate (L/min) 2 Oxygen Delivery Method Room Air Weight: 106.1 kg Body Mass Index (BMI) 36.6 Intake and Output for Last 24 Hours 10/12/20 10/13/20 10/14/20 23:59 23:59 23:59 Intake Total 407.75 / 407.75 1091.25 / 1091.25 Output Total 750 / 750 Balance 407.75 / 32.75 341.25 / 341.25 Laboratory Results 10/13/20 18:23: WBC 10.1, RBC 4.45 L, Hgb 12.0 L, Hct 38.0 L, MCV 85.4, MCH 27.0, MCHC 31.6 L, RDW Std Deviation 55.4 H, RDW Coeff of Anthony 18.0 H, Plt Count 339, MPV 9.2, Immature Gran % (Auto) 0.300, Neut % (Auto) 69.1, Lymph % (Auto) 23.0, Hanson % (Auto) 6.5, Eos % (Auto) 0.7, Baso % (Auto) 0.4, Absolute Neuts (auto) 7.0, Absolute Lymphs (auto) 2.33, Nucleated RBC % 0 10/13/20 18:23: Sodium 130 L, Potassium 3.4 L, Chloride 96 L, Carbon Dioxide 24.0, Anion Gap 10, BUN 19 H, Creatinine 1.43 H, Estim Creat Clear Calc 49.44, Est GFR (MDRD) Af Amer 63, Est GFR (MDRD) Non-Af 52 L, BUN/Creatinine Ratio 13.3, Glucose 155 H, Calcium 9.6, Troponin I 0.244 H 10/13/20 18:23: APTT 37.9 H 10/13/20 18:23: TSH 1.31 10/13/20 18:23: Magnesium 1.7 10/13/20 21:34: Troponin I 0.256 H 10/13/20 23:02: POC Glucose 159 H 10/14/20 00:45: Troponin I 0.252 H 10/14/20 05:32: WBC 6.9, RBC 3.47 L, Hgb 9.3 L, Hct 30.5 L, MCV 87.9, MCH 26.8 L, MCHC 30.5 L, RDW Std Deviation 57.7 H, RDW Coeff of Anthony 18.2 H, Plt Count 246, MPV 8.9, Immature Gran % (Auto) 0.300, Neut % (Auto) 66.8, Lymph % (Auto) 24.1, Hanson % (Auto) 6.5, Eos % (Auto) 1.7, Baso % (Auto) 0.6, Absolute Neuts (auto) 4.6, Absolute Lymphs (auto) 1.66, Nucleated RBC % 0 10/14/20 05:32: Sodium 134 L, Potassium 4.2, Chloride 101, Carbon Dioxide 26.0, Anion Gap 7, BUN 16, Creatinine 1.07, Estim Creat Clear Calc 61.78, Est GFR (MDRD) Af Amer 88, Est GFR (MDRD) Non-Af 73, BUN/Creatinine Ratio 15.0, Glucose 165 H, Calcium 8.5 10/14/20 05:32: Magnesium 2.6 10/14/20 05:32: B-Natriuretic Peptide 128.6 H 10/14/20 06:37: POC Glucose 174 H OBSV E&M: 71952 Observation care discharge
== END 2020-10-14 10:32 | disposition home or self-care (01) ==
LOC: ED 19:12 → PCU 20:35
PROVIDERS: Physician Assistant; Admitting Provider Hospitalist; Emergency Provider Emergency Medicine; PCP Family Medicine; Visit Provider Internal Medicine
DX: I48.92 Unspecified atrial flutter (principal); E87.6 Hypokalemia; G47.33 Obstructive sleep apnea (adult) (pediatric); J44.9 Chronic obstructive pulmonary disease, unspecified; I10 Essential (primary) hypertension; E78.5 Hyperlipidemia, unspecified; I27.20 Pulmonary hypertension, unspecified; I25.10 Atherosclerotic heart disease of native coronary artery without angina pectoris; I48.91 Unspecified atrial fibrillation; E66.9 Obesity, unspecified; R91.8 Other nonspecific abnormal finding of lung field; I08.1 Rheumatic disorders of both mitral and tricuspid valves; R94.31 Abnormal electrocardiogram [ECG] [EKG]; N17.9 Acute kidney failure, unspecified; E87.1 Hypo-osmolality and hyponatremia; E11.65 Type 2 diabetes mellitus with hyperglycemia; Z79.899 Other long term (current) drug therapy; Z79.84 Long term (current) use of oral hypoglycemic drugs; Z79.82 Long term (current) use of aspirin; Z95.5 Presence of coronary angioplasty implant and graft; Z79.51 Long term (current) use of inhaled steroids; Z87.891 Personal history of nicotine dependence; Z68.36 Body mass index [BMI] 36.0-36.9, adult; R06.02 Shortness of breath
CPT/HCPCS: 36415; 71045; 80048; 82962; 83735; 83880; 84443; 84484; 85025; 85730; 93005; 93306; 94640; 96361; 96365; 96375; 96376; 99218; 99285; J7030; Q9957; A4216; G0378; J0153

== ENCOUNTER → 2020-10-27 12:33 | Outpatient (CLI) | payer MEDICARE, SELFPAY ==
[2018-05-01 14:21] VITALS: BMI 36.8
[2020-10-13 20:01] VITALS: BMI 36.6
[2020-10-25 13:19] VITALS: BMI 37.0
--- NOTE | 2020-10-27 12:36 | CDU_ITS ---
Reason For Study: Disorientation Rt. Velocities/BP Lt. Velocities/BP Prox CCA 103.4/16 cm/sec. Prox CCA 108.3/15.2 cm/sec. Mid CCA 107.3/17.3 cm/sec. Mid CCA 106.5/18.8 cm/sec. Dist CCA 99.5/20 cm/sec. Dist CCA 91.9/15.2 cm/sec. Prox ICA 110.4/7.2 cm/sec. Prox ICA 95.5/11.5 cm/sec. Mid ICA 101.6/16 cm/sec. Mid ICA 88.2/17 cm/sec. Dist ICA 82.7/13.3 cm/sec. Dist ICA 71.8/22.5 cm/sec. Rt. ICA/CCA = 1.07. Lt. ICA/CCA = 0.90. Prox ECA 160.9/13.8 cm/sec. Prox ECA 68.1/6 cm/sec. Rt. Vert. 60.8/15.2 cm/sec. Lt. Vert. 80.9/15.2 cm/sec. Right Extracranial There is homogeneous, smooth atherosclerotic plaque noted in the right common carotid artery. There is heterogeneous, irregular atherosclerotic plaque noted in the right internal carotid artery. There is intimal thickening but no significant atherosclerotic plaque noted in the right external carotid artery. Antegrade flow is noted in the right vertebral artery. There is heterogeneous, irregular atherosclerotic plaque noted in the right bulb. Left Extracranial There is homogeneous, smooth atherosclerotic plaque noted in the left common carotid artery. There is heterogeneous, irregular atherosclerotic plaque noted in the left internal carotid artery. There is intimal thickening but no significant atherosclerotic plaque noted in the left external carotid artery. Antegrade flow is noted in the left vertebral artery. Procedure Carotid Duplex [id number]. This is a Carotid Duplex examination using B-mode, color flow and specral Doppler. Exam performed in department. VL/Carotid Duplex Ultrasound Interpretation Summary Mild (<50%) stenosis right extracranial internal carotid. Mild (<50%) stenosis left extracranial internal carotid. Flow within the vertebral arteries is antegrade bilaterally. Heterogeneous, irregular atherosclerotic plaque is noted in the right carotid bulb, which does not appear to be hemodynamically significant. Ordering Physician: Umesh Orr Referring Physician: Umesh Orr Performed By: Joselyn Walker RVT
== END ==
PROVIDERS: PCP Family Medicine; Referring Provider Family Medicine; Visit Provider Family Medicine
DX: R41.0 Disorientation, unspecified (principal); R42 Dizziness and giddiness
CPT/HCPCS: 93880

== ENCOUNTER → 2020-11-10 06:39 | Outpatient (CLI) | payer MEDICARE, SELFPAY ==
[2018-05-01 14:21] VITALS: BMI 36.8
[2020-10-25 13:19] VITALS: BMI 37.0
--- NOTE | 2020-11-10 09:45 | STRESSREP ---
Stress Test Report Date: 11-10-2020 Procedure: Pharmacologic stress nuclear imaging study Indications: Atrial flutter; CAD; PCI Consent: Per the patient Procedure: The patient underwent pharmacologic (Regadenoson 0.4mg ) evaluation with a peak heart rate of 75 beats per minute (49%predicted maximal heart rate) and a peak blood pressure of 130/60 mmHg. The baseline ECG demonstrated sinus bradycardia. The peak pharmacologic ECG demonstrated no obvious ECG changes. There were no cardiac dysrhythmias pretest, during pharmacologic infusion, or recovery. There was no complaint of chest discomfort during pharmacologic infusion or recovery. The examination was discontinued secondary to completion of protocol. Impression: 1. Pharmacologic (Regadenoson) evaluation 2. Peak pharmacologic ECG with no obvious ECG changes. 3. There were no cardiac dysrhythmias pretest, during pharmacologic infusion, or recovery. 4. Nuclear images pending Myocardial perfusion imaging study: Technique: The patient was injected with 14.8 millicuries of technetium 99m Cardiolite and subsequently rest SPECT Cardiolite nuclear imaging was obtained in the horizontal long, vertical long, and short axis views. The patient underwent pharmacologic (Regadenoson) evaluation with a peak heart rate of 75 beats per minute (49% percent predicted maximal heart rate) and a peak blood pressure of 130/60 mmHg. The patient was injected with 44.0 millicuries of technetium 99m Cardiolite and subsequently stress SPECT Cardiolite nuclear imaging was obtained in the horizontal long, vertical long, and short axis views. A gated Cardiolite study at peak stress was obtained. Interpretation: Rest and stress SPECT Cardiolite nuclear imaging status post realignment, normalization, and attenuation correction demonstrate at rest the appearance of a small area diminished tracer uptake in the mid to distal anterior segments which appears to improve/normalize following stress. There are similar type findings on the resting stress: Images. There is end systolic thickening and brightening. The gated Cardiolite study demonstrates myocardial thickening and inward wall motion. The reported LVEF is 65%. Impression: 1. Rest and stress SPECT cardiac nuclear imaging demonstrate myocardial perfusion changes at rest which appear to improve/normalize following stress appearing compatible shifting soft tissue attenuation/artifact with no myocardial perfusion changes considered diagnostic for associated stress-induced myocardial ischemia. 2. The gated Cardiolite study reports an LVEF of 65%. This note was generated with [employer] software. It may contain incorrect words, spelling, and punctuation that were not noted in checking the note before signing.
== END ==
PROVIDERS: PCP Family Medicine; Referring Provider Internal Medicine Cardiovascular Disease; Visit Provider Internal Medicine Cardiovascular Disease
DX: I25.10 Atherosclerotic heart disease of native coronary artery without angina pectoris (principal); I48.92 Unspecified atrial flutter; Z95.5 Presence of coronary angioplasty implant and graft
CPT/HCPCS: 78452; 93017; A9500; A4216; J2785

== ENCOUNTER → 2020-12-25 16:57 | Outpatient (CLI) | payer MEDICARE, SELFPAY ==
[2018-05-01 14:21] VITALS: BMI 36.8
[2020-10-25 13:19] VITALS: BMI 37.0
--- NOTE | 2020-12-25 17:00 | RAD_ITS ---
EXAM: XR CHEST, 2 VIEWS : 1950 CLINICAL INDICATION: INCREASED DYSPNEA TECHNIQUE: Frontal and lateral views of the chest. This report was created using [employer] report generation technology. COMPARISON: 10/13/2020 FINDINGS: LUNGS AND PLEURAL SPACES: Unremarkable. No consolidation or edema. No pneumothorax. No effusion. HEART: Unremarkable. Cardiac silhouette not enlarged. MEDIASTINUM: Central airways and mediastinal contour are unremarkable. BONES/JOINTS: Unremarkable. SOFT TISSUES: Unremarkable. RAD/Chest PA and Lateral IMPRESSION: No radiographic evidence of acute cardiopulmonary disease. at 1723 Reported and signed by: Brandon Conn MD Electronically Signed: Brandon Conn MD at 17:21 EDT Tel , Service support ,
[2020-12-25 18:39] LABS: BNP,B-Type NATRIURETIC PEPTIDE 38.7 pg/mL (0-100)
== END ==
PROVIDERS: PCP Family Medicine; Referring Provider Internal Medicine Pulmonary Disease; Visit Provider Internal Medicine Pulmonary Disease
DX: R06.00 Dyspnea, unspecified (principal); I48.91 Unspecified atrial fibrillation; J44.9 Chronic obstructive pulmonary disease, unspecified
CPT/HCPCS: 36415; 71046; 83880

== ENCOUNTER → 2021-01-18 15:20 | Outpatient (CLI) | payer MEDICARE, SELFPAY ==
[2018-05-01 14:21] VITALS: BMI 36.8
[2020-10-25 13:19] VITALS: BMI 37.0
[2021-01-18 17:44] LABS: Absolute Lymphocyte Count 1.62 X10^3/uL (0.83-4.51); Absolute Neutrophil Count 4.7 X10^3/uL (2.0-7.7); Basophil# 0.04 X10^3/uL; Basophil% 0.6 % (0-1); Eosinophil# 0.07 X10^3/uL; Hematocrit 31.1 % (40-54); Hemoglobin 9.8 g/dL (13.0-16.5); Lymphocyte # 1.62 X10^3/ul (0.83-4.51); Lymphocyte % 23.8 % (19-41); Mean Corp Hgb Conc 31.5 g/dL (32-36); Mean Corpuscular Hgb 28.7 pg (27.0-32.0); Mean Corpuscular Volume 91.2 fL (80-94); Mean Platelet Vol. 9.9 fl (6.2-12.0); Monocyte% 5.9 % (0-10); NRBC Flagged by Analyzer 0 % (0-5); Neutrophil # 4.66 X10^3/uL (2.7-7.7); Neutrophil % 68.4 % (47-70); Platelet Count 232 K/mm3 (150-450); RBC Distribution Width SD 49.2 fl (35.1-43.9); Red Blood Count 3.41 M/mm3 (4.6-6.2); White Blood Count 6.8 K/mm3 (4.4-11.0)
[2021-01-18 17:54] LABS: ALB/GLOB Ratio 1.1 RATIO (0.9-2.4); AST(SGOT) 24 U/L (15-37); Alanine Aminotransfer ALT/SGPT 26 U/L (16-61); Alkaline Phosphatase 112 U/L (45-117); Anion Gap 12 (5-15); BUN 9 mg/dL (7-18); BUN/Creat Ratio 8.5 RATIO (10-20); Calcium,Total 9.4 mg/dL (8.5-10.1); Chloride 95 mmol/L (98-107); Creatinine, Serum 1.06 mg/dL (0.70-1.30); EST Glomerular Filtration Rate 74 mL/min (>60); Est Glom Filt Rate - Afr Amer 89 mL/min (>60); Globulin 3.6 g/dL (2.2-4.2); Glucose 110 mg/dL (74-106); Potassium 3.7 mmol/L (3.5-5.1); Protein, Total 7.6 g/dL (6.4-8.2); Sodium Level 132 mmol/L (136-145)
[2021-01-18 18:24] LABS: D-Dimer Quantitative (DVT/PE) <= 0.27 FEU/ug/m (0.27-0.49)
== END ==
PROVIDERS: Family Medicine; PCP Family Medicine; Visit Provider Family Medicine
DX: R06.02 Shortness of breath (principal)
CPT/HCPCS: 36415; 80053; 85025; 85379

== ENCOUNTER 2021-02-04 08:32 | Observation (INO) | payer OTHER, MEDICARE, SELFPAY ==
[2018-05-01 14:21] VITALS: BMI 36.8
[2021-01-25 12:55] VITALS: BMI 37.0
[2021-02-04] VITALS (15 sets, daily range): BP systolic 114–170; BP diastolic 56–76; PULSE 48–70; RESP 14–18; TEMP 36.6–37.1; O2SAT 93–98; BMI 36.8; BMI 35.5
--- NOTE | 2021-02-04 08:48 | EKG12_ITS ---
Test Reason : CP Blood Pressure : / mmHG Vent. Rate : 056 BPM Atrial Rate : 056 BPM P-R Int : 188 ms QRS Dur : 096 ms QT Int : 418 ms P-R-T Axes : 033 059 046 degrees QTc Int : 403 ms Sinus bradycardia Otherwise normal ECG Confirmed by JAYY SIMMS, ALONZO ([id number]), editorial manager RENÉ SANDOVAL ([id number]) on 02/06/2021 9:43:18 AM Referred By: DAMEON Confirmed By:ALONZO HOEP MD
--- NOTE | 2021-02-04 08:48 | RAD_ITS ---
STUDY: X-RAY CHEST REASON FOR EXAM: Male, 70 years old. chest pain TECHNIQUE: Single AP portable view of the chest. COMPARISON: 12/25/2020 FINDINGS: The lungs are clear and expanded. There is no demonstrated pleural abnormality. Normal size heart. Normal mediastinum and darryl. Normal visualized pulmonary arteries. Normal visualized aortic arch and descending thoracic aorta. Normal visualized thoracic spine. Normal visualized ribs, clavicles, and shoulders. There is no demonstrated abnormality of the visualized soft tissue structures of the upper abdomen. RAD/Chest 1 View (Portable) IMPRESSION: Normal x-ray examination of the chest. Electronically Signed: Torsten Carpenter MD at 9:48 EDT Tel , Service support ,
--- NOTE | 2021-02-04 08:48 | EDS_ITS ---
HPI History of Present Illness Chief Complaint: Chest Pain Informant: patient and spouse/S.O. Onset/Context/Timing Onset: Today Timing: Intermittent Quality: Positive for Pressure and Stabbing Location: Substernal Current Severity: Mild Maximum Severity: Moderate Associated Symptoms: Positive for Dyspnea Narrative Narrative: Patient present secondary to chest pain. Patient was admitted to the hospital in October with new onset A. fib/flutter. Since that time has been having problems with shortness of breath. This morning between 4 and 6 AM he was awoken with sharp stabbing pain in the substernal region. Patient was given 1 nitro and this seemed to improve his pain. He has had intermittent pain since that time. Currently he denies any sharp pain but does report a pressure in his lower chest. states at 1 point he was complaining of pain up into his left shoulder and down his left arm. Patient did have a stress test when he was admitted in October. It did show an anomaly that was felt to be soft tissue attenuation. [facility] Medical History (Updated 02/04/21 @ 10:[address] Ro Lainez MD) Alcoholism Atherosclerotic heart disease of [place] coronary artery without angina pectoris CAD (coronary artery disease) COPD (chronic obstructive pulmonary disease) Dyspnea Essential hypertension Hydrocele Hydrocele, bilateral Hyperlipemia Hypokalemia Lung nodule, multiple ELISHA (obstructive sleep apnea) Presence of stent in coronary artery (~05/01/18) Pulmonary HTN Type 2 diabetes mellitus Home Medications albuterol sulfate 2 puff INHALATION Q4H PRN PRN 06/24/15 [History Last Taken 07/24/18] atorvastatin 40 mg PO QHS 06/24/15 [History Last Taken 10/12/20] budesonide-formoterol 2 puff INHALATION BID 06/24/15 [History Last Taken 10/13/20] loratadine 10 mg PO DAILY PRN 06/24/15 [History Last Taken Unknown] metformin 1,000 mg PO BIDCM 06/24/15 [History Last Taken 10/13/20] valsartan 320 mg PO DAILY 06/24/15 [History Last Taken 10/13/20] cholecalciferol (vitamin D3) 50 mcg (2,000 unit) tablet 2,000 unit PO DAILY 04/14/18 [History Last Taken 10/12/20] glipizide 5 mg tablet 5 mg PO BID tablet 04/14/18 [History Last Taken 10/13/20] nifedipine 90 mg tablet,extended release 90 mg PO DAILY 04/14/18 [History Last Taken 10/13/20] omega-3 fatty acids 1,000 mg capsule 2,000 mg PO BID cap 04/14/18 [History Last Taken 10/13/20] roflumilast 500 mcg tablet 500 mcg PO DAILY 04/14/18 [History Last Taken 10/12/20] tamsulosin 0.4 mg capsule 0.4 mg PO DAILY 04/14/18 [History Last Taken 10/12/20] tiotropium bromide 2.5 mcg/actuation mist for inhalation 2 puff INHALATION DAILY 04/14/18 [History Last Taken 10/13/20] vitamin B complex 1 tablet PO MOWEFR tablet 04/14/18 [History Last Taken 10/13/20] pantoprazole 20 mg PO DAILY #30 tablet 07/28/18 [Rx Last Taken 10/13/20] albuterol sulfate 2.5 mg INHALATION 4X/DAY PRN ml 10/15/18 [History Last Taken Unknown] fluticasone propionate 50 mcg/actuation nasal spray,suspension 1 spray INTRANASAL DAILY PRN 10/15/18 [History Last Taken Unknown] montelukast 10 mg tablet 10 mg PO QPM 10/15/18 [History Last Taken 10/13/20] torsemide 10 mg tablet 5 mg PO DAILY tablet 10/15/18 [History Last Taken 10/13/20] aspirin 81 mg tablet,delayed release 81 mg PO DAILY 04/22/19 [History Last Taken 10/12/20] metoprolol tartrate 50 mg tablet 50 mg PO BID #180 tablet 09/13/19 [Rx Last Taken 10/13/20] ferrous gluconate 324 mg (37.5 mg iron) tablet 324 mg PO DAILY 10/25/20 [History Last Taken Unknown] gabapentin 100 mg capsule 100 mg PO .COMPLEX cap 10/25/20 [History Last Taken Unknown] magnesium oxide 400 mg PO DAILY 10/25/20 [History Last Taken Unknown] apixaban 5 mg tablet 5 mg PO BID #180 tab 11/09/20 [Rx Last Taken Unknown] Allergy/AdvReac Type Severity Reaction Status Date / Time doxycycline Allergy Severe Rash Verified 02/04/21 08:32 empagliflozin AdvReac Severe yeast Verified 02/04/21 08:32 [From Jardiance] infection lisinopril AdvReac Intermediate Cough Verified 02/04/21 08:32 Family History Father COPD (chronic obstructive pulmonary disease) Heart disease Mother CAD (coronary artery disease) Myocardial infarction CVA (cerebral vascular accident) Diabetes Brother CAD (coronary artery disease) Pacemaker Diabetes History of coronary artery bypass surgery Brother Brain aneurysm Surgical History History of cardiac catheterization History of hip replacement Presence of coronary angioplasty implant and graft (~05/01/18) Social History Smoking Status: Former smoker how long ago did patient quit smokin years ago alcohol intake: former details: Quit in 1980 substance use type: does not use caffeine: Yes Type: coffee Number of servings: 2 ROS ROS ED Constitutional Constitutional ED: Denies chills or fever(s) Eyes Eyes: Denies change in vision ENT ENT ED: Denies sore throat Cardiovascular Cardiovascular: Reports chest pain Respiratory/Chest Respiratory/Chest: Reports dyspnea; Denies cough Gastrointestinal Gastrointestinal: Denies abdominal pain, diarrhea, nausea or vomiting Genitourinary Genitourinary ED: Denies dysuria Musculoskeletal Musculoskeletal: Denies back pain Integumentary Denies rash Neurologic Neurologic: Denies headache(s) or weakness Psychiatric Psychiatric: Denies anxiety or depression Endocrine Endocrinology: Denies polydipsia or polyuria Allergic/Immunologic Allergic/Immunologic ED: Denies urticaria EXAM Physical Exam Const Vital Signs: 02/04/21 08:32 02/04/21 08:39 02/04/21 08:55 Temperature 98.0 F Temperature Source Oral Pulse Rate 56 L Respiratory Rate 16 Respiratory Effort Non-Labored Respiratory Pattern Normal Blood Pressure 150/76 H Blood Pressure Mean 100 Pulse Ox 98 96 Oxygen Delivery Method Room Air Room Air 02/04/21 10:02 Temperature Temperature Source Pulse Rate 55 L Respiratory Rate 14 Respiratory Effort Respiratory Pattern Blood Pressure 114/63 Blood Pressure Mean 80 Pulse Ox 93 Oxygen Delivery Method Positive well nourished and well developed General Appearance ED: well developed HEENT Reports normocephalic and head/scalp atraumatic Eyes PERRL and EOMs intact bilaterally Neck supple Chest Wall inspection of chest normal and palpation of chest normal Chest Narrative: No reproducible chest wall tenderness. Resp normal respiratory effort and clear to auscultation bilaterally Cardio regular rhythm Rate: bradycardia GI normal to inspection, nondistended, normoactive bowel sounds Palpation: soft Extremity normal to inspection Neuro oriented x3 and no sensory deficits noted Sensorium / Orientation: alert Motor Exam: strength 5/5 throughout Psych mental status grossly normal Skin no rashes or lesions noted Heart Score History: Moderately Suspicious ECG: Normal Age: >/= 65 years Risk Factors: >/= 3 Risk Factors or History of CAD Troponin: </= Normal Limit Score: 5 MDM MDM MDM Narrative Medical decision making narrative: Patient had taken 1 baby aspirin this morning. He was given 3 additional baby aspirin here. EKG, labs, chest x-ray obtained. Lab Data Attestation: I reviewed the patient's lab results. Labs: Laboratory Results - last 24 hr 02/04/21 02/04/21 08:36 08:36 WBC 9.3 RBC 3.67 L Hgb 10.6 L Hct 32.7 L MCV 89.1 MCH 28.9 MCHC 32.4 RDW Std Deviation 45.6 H RDW Coeff of Anthony 14.1 Plt Count 282 MPV 9.2 Immature Gran % (Auto) 0.400 Neut % (Auto) 75.0 H Lymph % (Auto) 17.3 L [place] % (Auto) 5.8 Eos % (Auto) 1.1 Baso % (Auto) 0.4 Absolute Neuts (auto) 7.0 Absolute Lymphs (auto) 1.61 Nucleated RBC % 0 Sodium 131 L Potassium 4.2 Chloride 98 Carbon Dioxide 25.0 Anion Gap 8 BUN 10 Creatinine 1.10 Estim Creat Clear Calc 60.09 Est GFR (MDRD) Af Amer 85 Est GFR (MDRD) Non-Af 71 BUN/Creatinine Ratio 9.1 L Glucose 146 H Calcium 9.1 Troponin I High Sens 6.6 Radiography Chest X-Ray - ED: 1 View, Read by ED Physician and Chronic Changes Diagnostic Testing: Radiology Impression Chest X-Ray 02/04/21 08:48 IMPRESSION: Normal x-ray examination of the chest. Electronically Signed: Torsten Carpenter MD at 9:48 EDT Tel , Service support , EKG Initial EKG: Attestation: I personally reviewed and interpreted this EKG as follows: Interpretation: Sinus Bradycardia (Sinus bradycardia [address] change.) Treatment and Re-Evaluation Comments:: On repeat evaluation patient is resting comfortably. The pressure that he had in his chest on arrival has resolved. Patient was recently admitted and had a stress test that revealed an anomaly that was felt to be soft tissue attenuation with no sign of ischemia. However the patient does have significant risk factors and does have a good story. His pain was improved with nitro. He did have pain radiating to the left shoulder and arm. To be conservative I did recommend observation in the hospital for cycling of enzymes. Patient and are in agreement with this plan. I will speak with the hospitalist. Discharge Plan Triage Chief Complaint: Chest Pain ED Provider: Ro Lainez Dx/Rx/DC Orders Clinical Impression: Chest pain Prescriptions: No Action Daliresp 500 mcg tablet 500 mcg PO DAILY RF: 0 omega-3 fatty acids [Fish Oil Concentrate] 1,000 mg capsule 2,000 mg PO BID RF: 0 glipizide 5 mg tablet 5 mg PO BID RF: 0 nifedipine 90 mg tablet extended release 90 mg PO DAILY RF: 0 Spiriva Respimat 2.5 mcg/actuation mist 2 puff INHALATION DAILY RF: 0 tamsulosin 0.4 mg capsule 0.4 mg PO DAILY RF: 0 vitamin B complex [B Complex-Vitamin B12] tablet 1 tablet PO MOWEFR RF: 0 cholecalciferol (vitamin D3) 2,000 unit tablet 2,000 unit tablet 2,000 unit PO DAILY RF: 0 fluticasone propionate [Allergy Relief (fluticasone)] 50 mcg/actuation spray,suspension 1 spray INTRANASAL DAILY PRN (Reason: allergies) RF: 0 torsemide 10 mg tablet 5 mg PO DAILY RF: 0 montelukast 10 mg tablet 10 mg PO QPM RF: 0 albuterol sulfate 2.5 mg /3 mL (0.083 %) solution for nebulization 2.5 mg INHALATION 4X/DAY PRN (Reason: Sob &/Or Wheezing) RF: 0 aspirin [Adult Aspirin Regimen] 81 mg tablet,delayed release (DR/EC) 81 mg PO DAILY RF: 0 ferrous gluconate 324 mg (37.5 mg iron) tablet 324 mg PO DAILY RF: 0 magnesium oxide 400 mg magnesium tablet 400 mg PO DAILY RF: 0 atorvastatin 40 MG tablet 40 mg PO QHS RF: 0 metformin 1,000 MG tablet 1,000 mg PO BIDCM RF: 0 valsartan 320 MG tablet 320 mg PO DAILY RF: 0 albuterol sulfate 1 PUFF inhaler 2 puff INHALATION Q4H PRN PRN (Reason: Shortness Of Breath) RF: 0 loratadine 10 MG tablet 10 mg PO DAILY PRN (Reason: Allergies) RF: 0 budesonide-formoterol 1 INHALER inhaler 2 puff INHALATION BID RF: 0 pantoprazole 20 MG tablet 20 mg PO DAILY Qty: 30 RF: 0 gabapentin 100 mg capsule 100 mg PO .COMPLEX RF: 0 metoprolol tartrate 50 mg tablet 50 mg PO BID Qty: 180 RF: 3 apixaban 5 mg tablet 5 mg PO BID Qty: 180 RF: 4 Primary Care Provider: Umesh Orr Referrals: Umesh Orr MD [Primary Care Provider] - Disposition Disposition: Acute Care Hospital [facility]
[2021-02-04 09:00] LABS: Absolute Lymphocyte Count 1.61 X10^3/uL (0.83-4.51); Basophil# 0.04 X10^3/uL; Basophil% 0.4 % (0-1); Eosinophils% 1.1 % (0-5); Hematocrit 32.7 % (40-54); Hemoglobin 10.6 g/dL (13.0-16.5); Lymphocyte # 1.61 X10^3/ul (0.83-4.51); Lymphocyte % 17.3 % (19-41); Mean Corp Hgb Conc 32.4 g/dL (32-36); Mean Corpuscular Hgb 28.9 pg (27.0-32.0); Mean Corpuscular Volume 89.1 fL (80-94); Mean Platelet Vol. 9.2 fl (6.2-12.0); Monocyte# 0.54 X10^3/uL; Monocyte% 5.8 % (0-10); NRBC Flagged by Analyzer 0 % (0-5); Platelet Count 282 K/mm3 (150-450); RBC Distribution Width CV 14.1 % (11.6-14.6); RBC Distribution Width SD 45.6 fl (35.1-43.9); Red Blood Count 3.67 M/mm3 (4.6-6.2); White Blood Count 9.3 K/mm3 (4.4-11.0)
[2021-02-04] MEDS: Aspirin 81 MG TAB.CHEW 243 MG PO (09:00)
[2021-02-04 09:10] LABS: Anion Gap 8 (5-15); BUN 10 mg/dL (7-18); BUN/Creat Ratio 9.1 RATIO (10-20); Calcium,Total 9.1 mg/dL (8.5-10.1); Chloride 98 mmol/L (98-107); EST Glomerular Filtration Rate 71 mL/min (>60); Est Glom Filt Rate - Afr Amer 85 mL/min (>60); Estimated Creatinine Clearance 60.09 ml/min; Glucose 146 mg/dL (74-106); Potassium 4.2 mmol/L (3.5-5.1); Sodium Level 131 mmol/L (136-145); Troponin-I HS 6.6 pg/mL (3.0-78.5)
[2021-02-04 12:25] LABS: Bedside Glucose 112 mg/dL (70-110)
--- NOTE | 2021-02-04 13:19 | HP.PCM.HOS_ITS ---
HPI - General General Date of Admission: 02/04/21 HPI Narrative ESTEFANY PEPPER, is a 70 M who presents with chronic shortness of breath and intermittent chest pain. He did have a recent stress test done in October which was unremarkable though there was comment on diminished tracer uptake at rest which normalized following the stress test. Initial troponin in the ER was normal and EKG was unremarkable. He recently was diagnosed with new onset A. fib and was just given a 30-day event monitor. This morning he woke up and had another episode of chest pain which did improve with 1 nitro at home. EKG was unremarkable however given his recent issues with the stress test and continued shortness of breath and intermittent chest pain, admission was offered. He states that he has had several episodes of chest pain since his previous stress test but they have all been short lived and relieved with rest consistent with stable angina. He states that his made him come into the hospital today. [facility] Medical History (Updated 02/04/21 @ 10:[address] Ro Lainez MD) Alcoholism Atherosclerotic heart disease of [place] coronary artery without angina pectoris CAD (coronary artery disease) COPD (chronic obstructive pulmonary disease) Dyspnea Essential hypertension Hydrocele Hydrocele, bilateral Hyperlipemia Hypokalemia Lung nodule, multiple ELISHA (obstructive sleep apnea) Presence of stent in coronary artery (~05/01/18) Pulmonary HTN Type 2 diabetes mellitus Home Medications albuterol sulfate 2 puff INHALATION Q4H PRN PRN 06/24/15 [History Last Taken 07/24/18] atorvastatin 40 mg PO QHS 06/24/15 [History Last Taken 10/12/20] budesonide-formoterol 2 puff INHALATION BID 06/24/15 [History Last Taken 10/13/20] metformin 1,000 mg PO BIDCM 06/24/15 [History Last Taken 10/13/20] valsartan 320 mg PO DAILY 06/24/15 [History Last Taken 10/13/20] cholecalciferol (vitamin D3) 50 mcg (2,000 unit) tablet 2,000 unit PO DAILY 04/14/18 [History Last Taken 10/12/20] glipizide 5 mg tablet 5 mg PO BID tablet 04/14/18 [History Last Taken 10/13/20] nifedipine 90 mg tablet,extended release 90 mg PO DAILY 04/14/18 [History Last Taken 10/13/20] omega-3 fatty acids 1,000 mg capsule 2,000 mg PO BID cap 04/14/18 [History Last Taken 10/13/20] roflumilast 500 mcg tablet 500 mcg PO DAILY 04/14/18 [History Last Taken 10/12/20] tamsulosin 0.4 mg capsule 0.4 mg PO DAILY 04/14/18 [History Last Taken 10/12/20] tiotropium bromide 2.5 mcg/actuation mist for inhalation 2 puff INHALATION DAILY 04/14/18 [History Last Taken 10/13/20] vitamin B complex 1 tablet PO MOWEFR tablet 04/14/18 [History Last Taken 10/13/20] pantoprazole 20 mg PO DAILY #30 tablet 07/28/18 [Rx Last Taken 10/13/20] albuterol sulfate 2.5 mg INHALATION 4X/DAY PRN ml 10/15/18 [History Last Taken Unknown] fluticasone propionate 50 mcg/actuation nasal spray,suspension 1 spray INTRANASAL PRN PRN 10/15/18 [History Last Taken Unknown] montelukast 10 mg tablet 10 mg PO DAILY 10/15/18 [History Last Taken 10/13/20] torsemide 10 mg tablet 5 mg PO DAILY tablet 10/15/18 [History Last Taken 10/13/20] aspirin 81 mg tablet,delayed release 81 mg PO DAILY 04/22/19 [History Last Taken 10/12/20] metoprolol tartrate 50 mg tablet 50 mg PO BID #180 tablet 09/13/19 [Rx Last Taken 10/13/20] ferrous gluconate 324 mg (37.5 mg iron) tablet 324 mg PO DAILY 10/25/20 [History Last Taken Unknown] gabapentin 100 mg capsule 100 mg PO .COMPLEX cap 10/25/20 [History Last Taken Unknown] magnesium oxide 400 mg PO DAILY 10/25/20 [History Last Taken Unknown] apixaban 5 mg tablet 5 mg PO BID #180 tab 11/09/20 [Rx Last Taken Unknown] Allergy/AdvReac Type Severity Reaction Status Date / Time doxycycline Allergy Severe Rash Verified 02/04/21 08:32 empagliflozin AdvReac Severe yeast Verified 02/04/21 08:32 [From Jardiance] infection lisinopril AdvReac Intermediate Cough Verified 02/04/21 08:32 Family History Father COPD (chronic obstructive pulmonary disease) Heart disease Mother CAD (coronary artery disease) Myocardial infarction CVA (cerebral vascular accident) Diabetes Brother CAD (coronary artery disease) Pacemaker Diabetes History of coronary artery bypass surgery Brother Brain aneurysm Surgical History History of cardiac catheterization History of hip replacement Presence of coronary angioplasty implant and graft (~05/01/18) Social History Smoking Status: Former smoker how long ago did patient quit smokin years ago alcohol intake: former details: Quit in 1980 substance use type: does not use caffeine: Yes Type: coffee Number of servings: 2 ROS Constitutional Constitutional: Denies chills, fatigue, fever(s) or malaise Eyes Eyes: Denies blurry vision ENT HEENT: Denies headache(s) or nasal discharge Cardiovascular Cardiovascular: Reports chest pain; Denies dyspnea on exertion or syncope Respiratory/Chest Respiratory/Chest: Denies cough, shortness of breath at rest or shortness of breath with exertion Gastrointestinal Gastrointestinal: Denies constipation, diarrhea, nausea or vomiting Genitourinary Genitourinary: Denies dysuria Neurologic Neurologic: Denies focal weakness, numbness or tremor(s) Psychiatric Psychiatric: Denies anxiety or depression Vital Signs Vital Signs Vital Signs: 02/04/21 08:32 02/04/21 08:39 02/04/21 08:55 Temperature 98.0 F Temperature Source Oral Pulse Rate 56 L Respiratory Rate 16 Respiratory Effort Non-Labored Respiratory Depth Respiratory Pattern Normal Blood Pressure 150/76 H Blood Pressure Mean 100 Blood Pressure Source Blood Pressure Position Blood Pressure Location Pulse Ox 98 96 Oxygen Delivery Method Room Air Room Air 02/04/21 10:02 02/04/21 11:00 02/04/21 11:02 Temperature 98 F Temperature Source Temporal Pulse Rate 55 L 48 L 49 L Respiratory Rate 14 14 16 Respiratory Effort Respiratory Depth Respiratory Pattern Blood Pressure 114/63 122/66 H 122/66 H Blood Pressure Mean 80 84 84 Blood Pressure Source Blood Pressure Position Blood Pressure Location Pulse Ox 93 94 94 Oxygen Delivery Method Room Air 02/04/21 11:54 02/04/21 11:59 02/04/21 12:30 Temperature 98.1 F Temperature Source Oral Pulse Rate 70 49 L Respiratory Rate 18 Respiratory Effort Normal Non-Labored Respiratory Depth Normal Respiratory Pattern Normal Blood Pressure 132/56 H Blood Pressure Mean 81 Blood Pressure Source Monitor Blood Pressure Position Semi-Fowlers Blood Pressure Location Right Arm Pulse Ox 97 Oxygen Delivery Method Room Air Room Air Weight Weight: 226 lb 13.69 oz Body Mass Index (BMI) 35.5 Physical Exam Const alert, oriented x3 and no apparent distress General Appearance: cooperative HEENT normocephalic and moist oral mucous membranes Eyes PERRL, EOMs intact bilaterally and conjunctivae normal Neck supple and no JVD Resp normal respiratory effort, no retractions, no use of accessory muscles and clear to auscultation bilaterally Auscultation: Negative for crackles, rales, rhonchi or wheezes Cardio regular rate, regular rhythm, S1 normal heart sound, S2 normal heart sound and no murmurs GI soft to palpation, non-tender and non-distended; Negative for hepatosplenomegaly Inspection: central obesity Extremity no clubbing, cyanosis or edema Skin no rashes or lesions noted Neuro no focal motor deficits and no sensory deficits noted Psych affect normal Appearance: appropriate Results Lab / Micro Data Result Diagrams: 02/04/21 08:36 02/04/21 08:36 Labs: Laboratory Results - last 24 hr 02/04/21 08:36: WBC 9.3, RBC 3.67 L, Hgb 10.6 L, Hct 32.7 L, MCV 89.1, MCH 28.9, MCHC 32.4, RDW Std Deviation 45.6 H, RDW Coeff of Anthony 14.1, Plt Count 282, MPV 9.2, Immature Gran % (Auto) 0.400, Neut % (Auto) 75.0 H, Lymph % (Auto) 17.3 L, [place] % (Auto) 5.8, Eos % (Auto) 1.1, Baso % (Auto) 0.4, Absolute Neuts (auto) 7.0, Absolute Lymphs (auto) 1.61, Nucleated RBC % 0 02/04/21 08:36: Sodium 131 L, Potassium 4.2, Chloride 98, Carbon Dioxide 25.0, Anion Gap 8, BUN 10, Creatinine 1.10, Estim Creat Clear Calc 60.09, Est GFR (MDRD) Af Amer 85, Est GFR (MDRD) Non-Af 71, BUN/Creatinine Ratio 9.1 L, Glucose 146 H, Calcium 9.1, Troponin I High Sens 6.6 02/04/21 12:21: POC Glucose 112 H Radiology Impression Chest X-Ray 02/04/21 08:48 IMPRESSION: Normal x-ray examination of the chest. Electronically Signed: Torsten Carpenter MD at 9:48 EDT Tel , Service support , Assessment & Plan Assessment/Plan (1) Chest pain: PLAN: 1. Chest pain/new onset A. fib/HTN/HLD/obesity/CAD status post stent -We will consult cardiology to evaluate the utility of another stress test versus proceeding straight with a heart cath given his sensations. -Continue with aspirin and Lipitor but will hold his Eliquis in the setting of potentially needing a heart cath -Discussed with him lifestyle modifications for his obesity and will place him on an appropriate diet while you are in the hospital -We will continue with his home blood pressure medications 2. DM2 -We will hold his home hypoglycemics and place him on a long-acting insulin and sliding scale insulin -Accu-Cheks AC at bedtime, will make adjustments as necessary 3. COPD -Not currently in exacerbation -We will continue with duo nebs and he can restart his home medications on discharge 4. GERD -Stable -Continue with the PPI DVT: Lovenox Charges/Coding Visit Charges OBSV E&M: 53177 Initial observation care L3
[2021-02-04] MEDS: Ipratropium/Albuterol Sulfate 3 ML AMPUL.NEB INHALATION ×2 (13:37→19:16)
[2021-02-04 13:40] LABS: Troponin-I HS 5.5 pg/mL (3.0-78.5)
--- NOTE | 2021-02-04 13:42 | EKG12_ITS ---
Test Reason : ADMIT EKG Blood Pressure : / mmHG Vent. Rate : 052 BPM Atrial Rate : 052 BPM P-R Int : 162 ms QRS Dur : 094 ms QT Int : 458 ms P-R-T Axes : 006 058 057 degrees QTc Int : 425 ms Sinus bradycardia Otherwise normal ECG When compared with ECG of 04-FEB-2021 08:39, MANUAL COMPARISON REQUIRED, DATA IS UNCONFIRMED Confirmed by JAYY SIMMS, ALONZO ([id number]), health editor RENÉ SANDOVAL ([id number]) on 02/06/2021 9:49:03 AM Referred By: JEROD Confirmed By:ALONZO HOPE MD
[2021-02-04 14:41] LABS: Troponin-I HS 5.9 pg/mL (3.0-78.5)
--- NOTE | 2021-02-04 15:27 | PCM.CONS.C ---
Assessment & Plan Assessment/Plan (1) Chest pain: PLAN: 70-year-old patient who was admitted through the ER here at the [facility] with symptoms of atypical chest pain. Patient has a known history of CAD with a PCI and stent of the proximal RCA in 2018 Recently seen and evaluated at the cardiology office has a new onset A. fib and has event monitor According to the he had this morning around 6:00, and also he had symptoms of shortness of breath and has been seen and followed by sink maker Patient has other medical comorbidities with history of obstructive sleep apnea, COPD, diabetes, hypertension and hyperlipidemia. Noted his cardiac evaluation in this admission showed EKG which showed sinus bradycardia with no significant ST?the abnormalities and he was on treatment with calcium channel jd, beta-jd and anticoagulation Eliquis. In October this year he had a nuclear stress test and has been followed medically the symptoms of chest pain is very atypical and cardiac examination essentially normal. Series of high sensitive troponins has been negative. Plan and recommendations; 1. Chest pain is less likely cardiac in origin his main symptoms is shortness of breath which is related to his obstructive sleep apnea and longstanding history of COPD as his prior echocardiogram his LV function is preserved. 2. We will reevaluate by Lexiscan sestamibi myocardial fusion study and will consider further evaluation by cardiac cath based on the results of stress test. 3. Discussed cardiac care plan in detail with the patient, , nursing staff and all his medication has been discussed with the nursing staff. 4. He will be seen and evaluated in the morning by primary quality facilitator Dr. Reese. We will hold Eliquis and we will add Lovenox we will continue low-dose aspirin. I decreased the dose of the beta-jd metoprolol to 25 mg twice daily. (2) New onset atrial fibrillation: (3) Presence of stent in coronary artery: (4) ELISHA (obstructive sleep apnea): (5) Atherosclerotic heart disease of [place] coronary artery without angina pectoris: QUALIFIERS: [place] vs. transplanted heart: [place] heart Qualified Code(s): I25.10 - Atherosclerotic heart disease of [place] coronary artery without angina pectoris (6) Type 2 diabetes mellitus: (7) Essential hypertension: (8) COPD (chronic obstructive pulmonary disease): QUALIFIERS: COPD type: unspecified COPD Qualified Code(s): J44.9 - Chronic obstructive pulmonary disease, unspecified HPI Consult Data Date of Consult: 02/04/21 HPI Narrative Reason for Consultation: Patient with CAD, prior stent to RCA, SOB/Atypical chest pain HPI Narrative: ESTEFANY PEPPER, is a 70 M who presents [facility] Medical History (Updated 02/04/21 @ 10:[address] Ro Lainez MD) Alcoholism Atherosclerotic heart disease of [place] coronary artery without angina pectoris CAD (coronary artery disease) COPD (chronic obstructive pulmonary disease) Dyspnea Essential hypertension Hydrocele Hydrocele, bilateral Hyperlipemia Hypokalemia Lung nodule, multiple ELISHA (obstructive sleep apnea) Presence of stent in coronary artery (~05/01/18) Pulmonary HTN Type 2 diabetes mellitus Home Medications albuterol sulfate 2 puff INHALATION Q4H PRN PRN 06/24/15 [History Last Taken 07/24/18] atorvastatin 40 mg PO QHS 06/24/15 [History Last Taken 10/12/20] budesonide-formoterol 2 puff INHALATION BID 06/24/15 [History Last Taken 10/13/20] metformin 1,000 mg PO BIDCM 06/24/15 [History Last Taken 10/13/20] valsartan 320 mg PO DAILY 06/24/15 [History Last Taken 10/13/20] cholecalciferol (vitamin D3) 50 mcg (2,000 unit) tablet 2,000 unit PO DAILY 04/14/18 [History Last Taken 10/12/20] glipizide 5 mg tablet 5 mg PO BID tablet 04/14/18 [History Last Taken 10/13/20] nifedipine 90 mg tablet,extended release 90 mg PO DAILY 04/14/18 [History Last Taken 10/13/20] omega-3 fatty acids 1,000 mg capsule 2,000 mg PO BID cap 04/14/18 [History Last Taken 10/13/20] roflumilast 500 mcg tablet 500 mcg PO DAILY 04/14/18 [History Last Taken 10/12/20] tamsulosin 0.4 mg capsule 0.4 mg PO DAILY 04/14/18 [History Last Taken 10/12/20] tiotropium bromide 2.5 mcg/actuation mist for inhalation 2 puff INHALATION DAILY 04/14/18 [History Last Taken 10/13/20] vitamin B complex 1 tablet PO MOWEFR tablet 04/14/18 [History Last Taken 10/13/20] pantoprazole 20 mg PO DAILY #30 tablet 07/28/18 [Rx Last Taken 10/13/20] albuterol sulfate 2.5 mg INHALATION 4X/DAY PRN ml 10/15/18 [History Last Taken Unknown] fluticasone propionate 50 mcg/actuation nasal spray,suspension 1 spray INTRANASAL PRN PRN 10/15/18 [History Last Taken Unknown] montelukast 10 mg tablet 10 mg PO DAILY 10/15/18 [History Last Taken 10/13/20] torsemide 10 mg tablet 5 mg PO DAILY tablet 10/15/18 [History Last Taken 10/13/20] aspirin 81 mg tablet,delayed release 81 mg PO DAILY 04/22/19 [History Last Taken 10/12/20] metoprolol tartrate 50 mg tablet 50 mg PO BID #180 tablet 09/13/19 [Rx Last Taken 10/13/20] ferrous gluconate 324 mg (37.5 mg iron) tablet 324 mg PO DAILY 10/25/20 [History Last Taken Unknown] gabapentin 100 mg capsule 100 mg PO .COMPLEX cap 10/25/20 [History Last Taken Unknown] magnesium oxide 400 mg PO DAILY 10/25/20 [History Last Taken Unknown] apixaban 5 mg tablet 5 mg PO BID #180 tab 11/09/20 [Rx Last Taken Unknown] Allergy/AdvReac Type Severity Reaction Status Date / Time doxycycline Allergy Severe Rash Verified 02/04/21 08:32 empagliflozin AdvReac Severe yeast Verified 02/04/21 08:32 [From Jardiance] infection lisinopril AdvReac Intermediate Cough Verified 02/04/21 08:32 Family History Father COPD (chronic obstructive pulmonary disease) Heart disease Mother CAD (coronary artery disease) Myocardial infarction CVA (cerebral vascular accident) Diabetes Brother CAD (coronary artery disease) Pacemaker Diabetes History of coronary artery bypass surgery Brother Brain aneurysm Surgical History History of cardiac catheterization History of hip replacement Presence of coronary angioplasty implant and graft (~05/01/18) Social History Smoking Status: Former smoker how long ago did patient quit smokin years ago alcohol intake: former details: Quit in 1980 substance use type: does not use caffeine: Yes Type: coffee Number of servings: 2 Physical Exam Narrative Seen and evaluated at bedside along with the nursing staff, at bedside at time of evaluation Presented and admitted through the ER with symptoms of chest pain and shortness of breath Chest pain resolved. Cardiac rhythm sinus bradycardia heart rate around 56 Cardiac examination; S1-S2 regular, no murmur no systolic or diastolic murmur, no pericardial rub Chest examination; Diminished air entry basal otherwise normal breath sounds Examination abdomen; Soft no palpable mass. Examination lower extremity no clubbing no cyanosis or lower extremity edema. Pedal pulses palpable Examination of central nervous system no focal neurological deficit. Objective Data Vital Signs: Vital Signs Temp Pulse Resp BP Pulse Ox 98.1 F 61 18 132/56 H 95 02/04/21 11:54 02/04/21 15:00 02/04/21 13:37 02/04/21 11:54 02/04/21 13:37 Oxygen Delivery Method Room Air Weight: 226 lb 13.69 oz Body Mass Index (BMI) 35.5 Lab / Micro Data Result Diagrams: 02/04/21 08:36 02/04/21 08:36 Labs: Laboratory Results - last 24 hr 02/04/21 08:36: WBC 9.3, RBC 3.67 L, Hgb 10.6 L, Hct 32.7 L, MCV 89.1, MCH 28.9, MCHC 32.4, RDW Std Deviation 45.6 H, RDW Coeff of Anthony 14.1, Plt Count 282, MPV 9.2, Immature Gran % (Auto) 0.400, Neut % (Auto) 75.0 H, Lymph % (Auto) 17.3 L, Teller % (Auto) 5.8, Eos % (Auto) 1.1, Baso % (Auto) 0.4, Absolute Neuts (auto) 7.0, Absolute Lymphs (auto) 1.61, Nucleated RBC % 0 02/04/21 08:36: Sodium 131 L, Potassium 4.2, Chloride 98, Carbon Dioxide 25.0, Anion Gap 8, BUN 10, Creatinine 1.10, Estim Creat Clear Calc 60.09, Est GFR (MDRD) Af Amer 85, Est GFR (MDRD) Non-Af 71, BUN/Creatinine Ratio 9.1 L, Glucose 146 H, Calcium 9.1, Troponin I High Sens 6.6 02/04/21 12:21: POC Glucose 112 H 02/04/21 12:30: Troponin I High Sens 5.5 02/04/21 14:13: Troponin I High Sens 5.9 Cardiology Labs/Tests 02/04/21 08:36: WBC 9.3, RBC 3.67 L, Hgb 10.6 L, Hct 32.7 L, MCV 89.1, MCH 28.9, MCHC 32.4, Plt Count 282, MPV 9.2, Immature Gran % (Auto) 0.400, Neut % (Auto) 75.0 H, Lymph % (Auto) 17.3 L, Teller % (Auto) 5.8, Eos % (Auto) 1.1, Baso % (Auto) 0.4, Absolute Neuts (auto) 7.0, Nucleated RBC % 0 02/04/21 08:36: Sodium 131 L, Potassium 4.2, Chloride 98, Carbon Dioxide 25.0, Anion Gap 8, BUN 10, Creatinine 1.10, Est GFR (MDRD) Af Amer 85, Est GFR (MDRD) Non-Af 71, BUN/Creatinine Ratio 9.1 L, Glucose 146 H, Calcium 9.1 Rhythm: Sinus bradycardia., Heart rate around 49 bpm. EKG: Sinus bradycardia, otherwise normal electrocardiogram. Radiography Diagnostic Testing: Radiology Impression Chest X-Ray 02/04/21 08:48 IMPRESSION: Normal x-ray examination of the chest. Electronically Signed: Torsten Carpenter MD at 9:48 EDT Tel , Service support ,
[2021-02-04 16:16] LABS: Bedside Glucose 148 mg/dL (70-110)
[2021-02-04] MEDS: Atorvastatin Calcium 40 MG Tablet PO (20:28)
[2021-02-04] MEDS: Metoprolol Tartrate 25 MG Tablet PO (20:29)
[2021-02-04] MEDS: Enoxaparin 40 MG/0.4 ML Syringe SC (20:30)
[2021-02-04] MEDS: Gabapentin 100 MG Capsule PO (20:31)
[2021-02-04 20:41] LABS: Bedside Glucose 139 mg/dL (70-110)
[2021-02-05] VITALS (15 sets, daily range): BP systolic 152–174; BP diastolic 75–85; PULSE 56–89; RESP 14–18; TEMP 36.6–36.8; O2SAT 92–98
[2021-02-05] MEDS: 0.9% Saline Lock 10 ML Syringe IV (02:13)
[2021-02-05] MEDS: Insulin Lispro 100 UNIT/ML INSULN.PEN SC ×4 (06:15→21:04)
[2021-02-05 06:20] LABS: Bedside Glucose 165 mg/dL (70-110)
[2021-02-05 06:25] LABS: Absolute Lymphocyte Count 0.93 X10^3/uL (0.83-4.51); Absolute Neutrophil Count 4.8 X10^3/uL (2.0-7.7); Basophil# 0.03 X10^3/uL; Basophil% 0.5 % (0-1); Eosinophil# 0.06 X10^3/uL; Hematocrit 31.2 % (40-54); Hemoglobin 10.1 g/dL (13.0-16.5); Lymphocyte # 0.93 X10^3/ul (0.83-4.51); Lymphocyte % 14.9 % (19-41); Mean Corp Hgb Conc 32.4 g/dL (32-36); Mean Corpuscular Hgb 29.3 pg (27.0-32.0); Mean Corpuscular Volume 90.4 fL (80-94); Mean Platelet Vol. 9.2 fl (6.2-12.0); Monocyte# 0.37 X10^3/uL; Monocyte% 5.9 % (0-10); NRBC Flagged by Analyzer 0 % (0-5); Neutrophil # 4.84 X10^3/uL (2.7-7.7); Neutrophil % 77.4 % (47-70); Platelet Count 235 K/mm3 (150-450); RBC Distribution Width CV 14.2 % (11.6-14.6); RBC Distribution Width SD 46.6 fl (35.1-43.9); Red Blood Count 3.45 M/mm3 (4.6-6.2); White Blood Count 6.3 K/mm3 (4.4-11.0)
[2021-02-05 06:55] LABS: Anion Gap 7 (5-15); BUN 11 mg/dL (7-18); BUN/Creat Ratio 12.2 RATIO (10-20); Chloride 102 mmol/L (98-107); EST Glomerular Filtration Rate 89 mL/min (>60); Est Glom Filt Rate - Afr Amer 108 mL/min (>60); Estimated Creatinine Clearance 73.44 ml/min; Glucose 161 mg/dL (74-106); Potassium 3.8 mmol/L (3.5-5.1); Sodium Level 136 mmol/L (136-145)
[2021-02-05] MEDS: Ipratropium/Albuterol Sulfate 3 ML AMPUL.NEB INHALATION ×3 (07:22→19:35)
--- NOTE | 2021-02-05 08:14 | PCM.PN.CARD ---
Subjective Subjective The patient appears to be resting comfortably this a.m. He denies ongoing chest discomfort or shortness of breath/dyspnea. Objective Data Vital Signs: Vital Signs Temp Pulse Resp BP Pulse Ox 98.2 F 62 18 174/83 H 96 02/05/21 08:00 02/05/21 08:00 02/05/21 08:00 02/05/21 08:00 02/05/21 08:00 Oxygen Delivery Method Room Air Weight: 226 lb 13.69 oz Body Mass Index (BMI) 35.5 Intake & Output: Intake and Output for Last 24 Hours 02/03/21 02/04/21 02/05/21 23:59 23:59 23:59 Intake Total 400 / 800 650 / 650 Balance 400 / 800 650 / 650 Lab / Micro Data Result Diagrams: 02/05/21 05:41 02/05/21 05:41 Labs: Laboratory Results - last 24 hr 02/04/21 08:36: WBC 9.3, RBC 3.67 L, Hgb 10.6 L, Hct 32.7 L, MCV 89.1, MCH 28.9, MCHC 32.4, RDW Std Deviation 45.6 H, RDW Coeff of Anthony 14.1, Plt Count 282, MPV 9.2, Immature Gran % (Auto) 0.400, Neut % (Auto) 75.0 H, Lymph % (Auto) 17.3 L, Henderson % (Auto) 5.8, Eos % (Auto) 1.1, Baso % (Auto) 0.4, Absolute Neuts (auto) 7.0, Absolute Lymphs (auto) 1.61, Nucleated RBC % 0 02/04/21 08:36: Sodium 131 L, Potassium 4.2, Chloride 98, Carbon Dioxide 25.0, Anion Gap 8, BUN 10, Creatinine 1.10, Estim Creat Clear Calc 60.09, Est GFR (MDRD) Af Amer 85, Est GFR (MDRD) Non-Af 71, BUN/Creatinine Ratio 9.1 L, Glucose 146 H, Calcium 9.1, Troponin I High Sens 6.6 02/04/21 12:21: POC Glucose 112 H 02/04/21 12:30: Troponin I High Sens 5.5 02/04/21 14:13: Troponin I High Sens 5.9 02/04/21 16:12: POC Glucose 148 H 02/04/21 20:25: POC Glucose 139 H 02/05/21 05:41: WBC 6.3, RBC 3.45 L, Hgb 10.1 L, Hct 31.2 L, MCV 90.4, MCH 29.3, MCHC 32.4, RDW Std Deviation 46.6 H, RDW Coeff of Anthony 14.2, Plt Count 235, MPV 9.2, Immature Gran % (Auto) 0.300, Neut % (Auto) 77.4 H, Lymph % (Auto) 14.9 L, [place] % (Auto) 5.9, Eos % (Auto) 1.0, Baso % (Auto) 0.5, Absolute Neuts (auto) 4.8, Absolute Lymphs (auto) 0.93, Nucleated RBC % 0 02/05/21 05:41: Sodium 136, Potassium 3.8, Chloride 102, Carbon Dioxide 27.0, Anion Gap 7, BUN 11, Creatinine 0.90, Estim Creat Clear Calc 73.44, Est GFR (MDRD) Af Amer 108, Est GFR (MDRD) Non-Af 89, BUN/Creatinine Ratio 12.2, Glucose 161 H, Calcium 9.0 02/05/21 06:09: POC Glucose 165 H Cardiology Labs/Tests 02/04/21 08:36: WBC 9.3, RBC 3.67 L, Hgb 10.6 L, Hct 32.7 L, MCV 89.1, MCH 28.9, MCHC 32.4, Plt Count 282, MPV 9.2, Immature Gran % (Auto) 0.400, Neut % (Auto) 75.0 H, Lymph % (Auto) 17.3 L, [place] % (Auto) 5.8, Eos % (Auto) 1.1, Baso % (Auto) 0.4, Absolute Neuts (auto) 7.0, Nucleated RBC % 0 02/04/21 08:36: Sodium 131 L, Potassium 4.2, Chloride 98, Carbon Dioxide 25.0, Anion Gap 8, BUN 10, Creatinine 1.10, Est GFR (MDRD) Af Amer 85, Est GFR (MDRD) Non-Af 71, BUN/Creatinine Ratio 9.1 L, Glucose 146 H, Calcium 9.1 02/05/21 05:41: WBC 6.3, RBC 3.45 L, Hgb 10.1 L, Hct 31.2 L, MCV 90.4, MCH 29.3, MCHC 32.4, Plt Count 235, MPV 9.2, Immature Gran % (Auto) 0.300, Neut % (Auto) 77.4 H, Lymph % (Auto) 14.9 L, [place] % (Auto) 5.9, Eos % (Auto) 1.0, Baso % (Auto) 0.5, Absolute Neuts (auto) 4.8, Nucleated RBC % 0 02/05/21 05:41: Sodium 136, Potassium 3.8, Chloride 102, Carbon Dioxide 27.0, Anion Gap 7, BUN 11, Creatinine 0.90, Est GFR (MDRD) Af Amer 108, Est GFR (MDRD) Non-Af 89, BUN/Creatinine Ratio 12.2, Glucose 161 H, Calcium 9.0 Rhythm: Sinus rhythm/sinus bradycardia EKG: Sinus bradycardia ECHO: 10/14/2020 Interpretation Summary Left ventricular systolic function is normal. The estimated ejection fraction is 65 %. Increased LA filling pressure Moderate (2+) mitral valve insufficiency. Mild (1+) tricuspid valve insufficiency. Pulmonary artery systolic pressure is 35-40 mmHg. Mild pulmonary hypertension. The inferior vena cava is dilated Inferior vena cava collapse with respiration. Stage 2 diastolic dysfunction. Stress Test Report Date: 11-10-2020 Procedure: Pharmacologic stress nuclear imaging study Indications: Atrial flutter; CAD; PCI Consent: Per the patient Procedure: The patient underwent pharmacologic (Regadenoson 0.4mg ) evaluation with a peak heart rate of 75 beats per minute (49%predicted maximal heart rate) and a peak blood pressure of 130/60 mmHg. The baseline ECG demonstrated sinus bradycardia. The peak pharmacologic ECG demonstrated no obvious ECG changes. There were no cardiac dysrhythmias pretest, during pharmacologic infusion, or recovery. There was no complaint of chest discomfort during pharmacologic infusion or recovery. The examination was discontinued secondary to completion of protocol. Impression: 1. Pharmacologic (Regadenoson) evaluation 2. Peak pharmacologic ECG with no obvious ECG changes. 3. There were no cardiac dysrhythmias pretest, during pharmacologic infusion, or recovery. 4. Nuclear images pending Myocardial perfusion imaging study: Technique: The patient was injected with 14.8 millicuries of technetium 99m Cardiolite and subsequently rest SPECT Cardiolite nuclear imaging was obtained in the horizontal long, vertical long, and short axis views. The patient underwent pharmacologic (Regadenoson) evaluation with a peak heart rate of 75 beats per minute (49% percent predicted maximal heart rate) and a peak blood pressure of 130/60 mmHg. The patient was injected with 44.0 millicuries of technetium 99m Cardiolite and subsequently stress SPECT Cardiolite nuclear imaging was obtained in the horizontal long, vertical long, and short axis views. A gated Cardiolite study at peak stress was obtained. Interpretation: Rest and stress SPECT Cardiolite nuclear imaging status post realignment, normalization, and attenuation correction demonstrate at rest the appearance of a small area diminished tracer uptake in the mid to distal anterior segments which appears to improve/normalize following stress. There are similar type findings on the resting stress: Images. There is end systolic thickening and brightening. The gated Cardiolite study demonstrates myocardial thickening and inward wall motion. The reported LVEF is 65%. Impression: 1. Rest and stress SPECT cardiac nuclear imaging demonstrate myocardial perfusion changes at rest which appear to improve/normalize following stress appearing compatible shifting soft tissue attenuation/artifact with no myocardial perfusion changes considered diagnostic for associated stress-induced myocardial ischemia. 2. The gated Cardiolite study reports an LVEF of 65%. Cardiac Cath: 07/27/2018 CONCLUSIONS Elevated Left Ventricular End Diastolic Pressure Normal LV size, wall motion,and systolic function LVEF: by LV gram 65 % [place] Multivessel CAD RECOMMENDATIONS Medical therapy Follow up with primary care physician DESCRIPTION OF PROCEDURE The patient arrived to the procedure lab. The risks and benefits of the procedure as well as a full description of our services here and current unavailability of surgical backup were fully explained to the patient and/or their significant other prior to the catheterization. The Timeout was completed, verifying the correct patient and procedure. The patient's procedural site was prepped and draped in the usual fashion. Local anesthetic was given subcutaneously to right radial region with Lidocaine 2%. Using a modified Seldinger technique, arterial access was obtained via the right radial artery, a 6Fr sheath was inserted. Left Coronary Artery selective angiography was performed in multiple views using a 5 Fr. 4.0 Tillar catheter. Right Coronary Artery selective angiography was then performed in multiple views using a 5 Fr. 4.0 Tillar catheter. Left Ventriculography was performed in CHAPA projection using a 5 Fr. Pigtail catheter. LV to AO pullback pressures were then recorded.The arterial sheath was pulled and a TR Band was applied for hemostasis CORONARY ANGIOGRAPHY DOMINANCE: Right Dominant LEFT HEART ASSESSMENT Left Ventricular Ejection Fraction: by LV Gram 60 % Normal LV wall motion Elevated Left Ventricular End Diastolic Pressure LVEDP: 23 mmHg LEFT MAIN: Mild calcification, Mild luminal irregularities LEFT ANTERIOR DECENDING ARTERY: Mild luminal irregularities PROX LAD: Mild calcification CIRCUMFLEX ARTERY: Angiographically normal RAMUS: Angiographically normal RIGHT CORONARY ARTERY: PROX RCA: Previously placed stent is patent MID RCA: Diffuse: Eccentric: 10-25 % Stenosis RIGHT AV SEGMENT: Mild luminal irregularities VALVE FINDINGS: Normal Aortic Valve function Normal Mitral Valve function AORTIC ROOT: Angiographically normal PCI: 05/04/2018 RCA: PTCA/CHASIDY (3.5x12 resolute stent and 4.0x12 resolute stent) Radiography Diagnostic Testing: Radiology Impression Chest X-Ray 02/04/21 08:48 IMPRESSION: Normal x-ray examination of the chest. Electronically Signed: Torsten Carpenter MD at 9:48 EDT Tel , Service support , Physical Exam Narrative The patient appears to be resting comfortably in no acute distress. Const alert and oriented x3 Orientation / Consciousness: awake HEENT normocephalic, head/scalp atraumatic and hearing grossly normal bilaterally Eyes PERRL, EOMs intact bilaterally and conjunctivae normal Neck full ROM, supple and no JVD Resp normal respiratory effort and clear to auscultation bilaterally Cardio regular rate, regular rhythm, S1 normal heart sound and S2 normal heart sound GI normal to inspection, nondistended, normoactive bowel sounds Extremity no pedal edema Psych mental status grossly normal Assessment & Plan Assessment/Plan (1) Shortness of breath: PLAN: It appears the patient's main concern was shortness of breath/dyspnea. The etiology is unclear as to whether this is cardiovascular versus related to his underlying pulmonary condition and obstructive sleep apnea. From a cardiac standpoint he is being scheduled for further cardiovascular diagnostic studies. This is to include an echocardiogram to reassess his left ventricular wall motion and systolic function and an exercise tolerance test/imaging study to reassess his coronary physiology. Depending upon the findings he may or may not need reevaluation in the cardiac catheterization laboratory versus continued noncardiac evaluation. (2) Atherosclerotic heart disease of [place] coronary artery without angina pectoris: QUALIFIERS: [place] vs. transplanted heart: [place] heart Qualified Code(s): I25.10 - Atherosclerotic heart disease of [place] coronary artery without angina pectoris PLAN: The patient has a history of underlying CAD. He has undergone previous cardiac catheterization and RCA PCI in 2018. He had a repeat cardiac catheterization in 2019 which demonstrated his RCA PCI site to be patent. He is continuing evaluation care as noted above. (3) Presence of stent in coronary artery: PLAN: His previous PCI was reviewed. Again he had RCA PCI in 2018. Depending upon his clinical course and findings he may or may not need repeat evaluation in the cardiac catheterization laboratory. (4) Atrial fibrillation and flutter: PLAN: He appears to be remaining in sinus rhythm at this time. He will continue his current therapy and follow-up. (5) Essential hypertension: PLAN: He should continue risk factor evaluation and care/medical therapy as tolerated. (6) Hyperlipemia: QUALIFIERS: Hyperlipidemia type: unspecified Qualified Code(s): E78.5 - Hyperlipidemia, unspecified PLAN: His blood pressure will be monitored with his medications adjusted accordingly. (7) COPD (chronic obstructive pulmonary disease): QUALIFIERS: COPD type: unspecified COPD Qualified Code(s): J44.9 - Chronic obstructive pulmonary disease, unspecified PLAN: Again he does have a history of underlying pulmonary disease. This may be a contributing factor to his findings. He will undergo his cardiac evaluation. Depending upon his findings he may need further pulmonary evaluation care as well. Addt'l Comments This note was generated using a voice recognition system and there may be incorrect words, spelling or punctuation that were not noted when reviewing the office note prior to saving.
[2021-02-05] MEDS: Losartan Potassium 100 MG Tablet PO (08:17)
[2021-02-05] MEDS: Aspirin 81 MG TAB.CHEW PO (08:17)
--- NOTE | 2021-02-05 08:43 | NURSING ---
patient off floor at this time for stress test
[2021-02-05] MEDS: Tamsulosin HCl 0.4 MG Capsule PO (10:29)
[2021-02-05] MEDS: Ferrous Gluconate 324 MG Tablet PO (10:29)
[2021-02-05] MEDS: Gabapentin 100 MG Capsule 200 MG PO (10:29)
[2021-02-05] MEDS: NIFEdipine 90 MG Tablet PO (10:30)
[2021-02-05] MEDS: Enoxaparin 40 MG/0.4 ML Syringe SC (10:30)
[2021-02-05] MEDS: Pantoprazole Sodium 20 MG Tablet PO (10:30)
[2021-02-05] MEDS: Metoprolol Tartrate 25 MG Tablet PO ×2 (10:33→20:05)
--- NOTE | 2021-02-05 11:05 | CASEMGMT ---
Per Huma, PCU pathology secretary/transcriptionist, pt's up to desk and states she wants to make sure that pt's [facility] regards to [facility]. Per chart, pt only has [employer] medicare listed currently. Call to registration and SABAS [place], to notify of same, voice understanding. Oanh BROWNLEE CM
[2021-02-05 12:41] LABS: Bedside Glucose 152 mg/dL (70-110)
--- NOTE | 2021-02-05 12:41 | STRESSREP_ITS ---
Stress Test Report Date: 02-05-2021 Procedure: Pharmacologic stress nuclear imaging study Indications: Chest pain; shortness of breath/dyspnea; CAD; atrial fibrillation; COPD; ELISHA; pulmonary hypertension Consent: Per the patient Procedure: The patient underwent pharmacologic (Regadenoson 0.4mg ) evaluation with a peak heart rate of 104 beats per minute (68%predicted maximal heart rate) and a peak blood pressure of 174/72 mmHg. The baseline ECG demonstrated sinus bradycardia; nonspecific ST segment abnormality. The peak pharmacologic ECG demonstrated no obvious ECG changes. There were no cardiac dysrhythmias pretest, during pharmacologic infusion, or recovery. There was no complaint of chest discomfort during pharmacologic infusion or recovery. The examination was discontinued secondary to completion of protocol. Impression: 1. Pharmacologic (Regadenoson) evaluation 2. Peak pharmacologic ECG with no obvious ECG changes. 3. There were no cardiac dysrhythmias pretest, during pharmacologic infusion, or recovery. 4. Nuclear images pending Myocardial perfusion imaging study: Technique: The patient was injected with 15.0 millicuries of technetium 99m Cardiolite and subsequently rest SPECT Cardiolite nuclear imaging was obtained in the horizontal long, vertical long, and short axis views. The patient underwent pharmacologic (Regadenoson) evaluation with a peak heart rate of 104 beats per minute (68% percent predicted maximal heart rate) and a peak blood pressure of 174/72 mmHg. The patient was injected with 45.0 millicuries of technetium 99m Cardiolite and subsequently stress SPECT Cardiolite nuclear imaging was obtained in the horizontal long, vertical long, and short axis views. A gated Cardiolite study at peak stress was obtained. Interpretation: Rest and stress SPECT Cardiolite nuclear imaging status post realignment, normalization, and attenuation correction demonstrate status post stress the appearance of diminished myocardial perfusion/tracer uptake in portions of the distal anterior/anteroapical segments. There is end systolic thickening and brightening. The gated Cardiolite study demonstrates myocardial thickening and inward wall motion. The reported LVEF is 66%. Impression: 1. Rest and stress SPECT from nuclear imaging demonstrate myocardial perfusion changes concerning for an area of stress-induced myocardial ischemia in portions of the distal anterior/anteroapical segment. 2. The gated Cardiolite study reports an LVEF of 66%. This note was generated with [employer] software. It may contain incorrect words, spelling, and punctuation that were not noted in checking the note before signing.
--- NOTE | 2021-02-05 13:00 | CASEMGMT ---
Addendum entered by Joselyn Monroe 02/05/21 15:11: Pt also has [facility] benefits. Oanh BROWNLEE CM Original Note: According to the [facility] website, the following are in-network tertiary facilities: [facility], [place], [facility], [facility], [facility], [facility], and . Oanh BROWNLEE CM
--- NOTE | 2021-02-05 13:58 | PN.HOSP_ITS ---
Subjective Subjective Chest pain resolved, no issues overnight Objective Data Objective Data Vital Signs: Vital Signs Temp Pulse Resp BP Pulse Ox 98.2 F 58 L 16 174/83 H 96 02/05/21 08:00 02/05/21 13:42 02/05/21 13:42 02/05/21 08:00 02/05/21 08:00 Oxygen Delivery Method Room Air Weight: 226 lb 13.69 oz Body Mass Index (BMI) 35.5 Intake & Output: Intake and Output for Last 24 Hours 02/04/21 02/05/21 02/06/21 03:59 03:59 03:59 Intake Total 800 / 800 250 / 250 Balance 800 / 800 250 / 250 Lab / Micro Data Result Diagrams: 02/05/21 05:41 02/05/21 05:41 Labs: Laboratory Results - last 24 hr 02/04/21 14:13: Troponin I High Sens 5.9 02/04/21 16:12: POC Glucose 148 H 02/04/21 20:25: POC Glucose 139 H 02/05/21 05:41: WBC 6.3, RBC 3.45 L, Hgb 10.1 L, Hct 31.2 L, MCV 90.4, MCH 29.3, MCHC 32.4, RDW Std Deviation 46.6 H, RDW Coeff of Anthony 14.2, Plt Count 235, MPV 9.2, Immature Gran % (Auto) 0.300, Neut % (Auto) 77.4 H, Lymph % (Auto) 14.9 L, [place] % (Auto) 5.9, Eos % (Auto) 1.0, Baso % (Auto) 0.5, Absolute Neuts (auto) 4.8, Absolute Lymphs (auto) 0.93, Nucleated RBC % 0 02/05/21 05:41: Sodium 136, Potassium 3.8, Chloride 102, Carbon Dioxide 27.0, Anion Gap 7, BUN 11, Creatinine 0.90, Estim Creat Clear Calc 73.44, Est GFR (MDRD) Af Amer 108, Est GFR (MDRD) Non-Af 89, BUN/Creatinine Ratio 12.2, Glucose 161 H, Calcium 9.0 02/05/21 06:09: POC Glucose 165 H 02/05/21 12:32: POC Glucose 152 H Physical Exam Const alert, oriented x3 and no apparent distress General Appearance: cooperative HEENT normocephalic and moist oral mucous membranes Eyes PERRL, EOMs intact bilaterally and conjunctivae normal Neck supple and no JVD Resp normal respiratory effort, no retractions, no use of accessory muscles and clear to auscultation bilaterally Auscultation: Negative for crackles, rales, rhonchi or wheezes Cardio regular rate, regular rhythm, S1 normal heart sound, S2 normal heart sound and no murmurs GI soft to palpation, non-tender and non-distended; Negative for hepatosplenomegaly Inspection: central obesity Extremity no clubbing, cyanosis or edema Skin no rashes or lesions noted Neuro no focal motor deficits and no sensory deficits noted Psych affect normal Appearance: appropriate Assessment & Plan Assessment/Plan (1) Chest pain: PLAN: 1. Chest pain/new onset A. fib/HTN/HLD/obesity/CAD status post stent -Cardiology placed on twice daily Lovenox to cover for his Eliquis, and will proceed with stress test this morning. -Continue with aspirin and Lipitor but will hold his Eliquis in the setting of potentially needing a heart cath -Discussed with him lifestyle modifications for his obesity and will place him on an appropriate diet while you are in the hospital -We will continue with his home blood pressure medications 2. DM2 -We will hold his home hypoglycemics and place him on a long-acting insulin and sliding scale insulin -Accu-Cheks AC at bedtime, will make adjustments as necessary 3. COPD -Not currently in exacerbation -We will continue with duo nebs and he can restart his home medications on discharge 4. GERD -Stable -Continue with the PPI DVT: Lovenox Charges/Coding Visit Charges OBSV E&M: 21866 Subsequent observation care L2
--- NOTE | 2021-02-05 15:10 | CASEMGMT ---
This RN CM to room with HUTCHINS form, explanation done-pt/ voice understanding, and signs HUTCHINS form. Original to chart and copy to pt. Per , pt has MCR IP vs OBS booklet at bedside. Pt/ voice no further questions/concerns/needs. SStaten RN CHEL
[2021-02-05 17:20] LABS: Bedside Glucose 197 mg/dL (70-110)
[2021-02-05] MEDS: Atorvastatin Calcium 40 MG Tablet PO (20:04)
[2021-02-05] MEDS: Gabapentin 100 MG Capsule PO (20:05)
[2021-02-05 21:11] LABS: Bedside Glucose 185 mg/dL (70-110)
[2021-02-06] VITALS (17 sets, daily range): BP systolic 141–165; BP diastolic 65–85; PULSE 56–87; RESP 16–20; TEMP 36.6–37.2; O2SAT 94–99
--- NOTE | 2021-02-06 06:00 | EKG12_ITS ---
Test Reason : AM EKG Blood Pressure : / mmHG Vent. Rate : 052 BPM Atrial Rate : 052 BPM P-R Int : 158 ms QRS Dur : 096 ms QT Int : 446 ms P-R-T Axes : 071 071 072 degrees QTc Int : 414 ms Sinus bradycardia Otherwise normal ECG Confirmed by WINTER SIMMS, CHANO ([id number]), purchasing expeditor RENÉ SANDOVAL ([id number]) on 02/07/2021 1:20:37 PM Referred By: JEROD Confirmed By:CHANO MAX MD
[2021-02-06] MEDS: Aspirin 81 MG TAB.CHEW PO (06:13)
[2021-02-06] MEDS: NIFEdipine 90 MG Tablet PO (06:13)
[2021-02-06] MEDS: Losartan Potassium 100 MG Tablet PO (06:13)
[2021-02-06 06:31] LABS: Bedside Glucose 152 mg/dL (70-110)
--- NOTE | 2021-02-06 08:06 | ECHOD_ITS ---
Reason For Study: DYSPNEA/SOB Procedure This was a 2D Doppler, Color Flow transthoracic echocardiogram. The study was technically difficult. Due to body habitus and COPD. Definity deferred as all IVs were removed for discharge. Exam performed portable in patient room. Left Ventricle Normal LV size. Left ventricular systolic function is normal. The estimated ejection fraction is 65 %. Diastolic function is indeterminate. No regional wall motion abnormalities noted. Right Ventricle Normal RV size. Normal systolic function. Atria Normal left atrium. Normal right atrium. No doppler evidence for ASD. Mitral Valve There is no mitral annular calcification. Normal mitral valve. Trivial mitral valve insufficiency. Tricuspid Valve Normal tricuspid valve. Trivial tricuspid valve insufficiency. Unable to estimate RV systolic pressure/pulmonary artery pressure due to technically difficult study. Aortic Valve Trisinus/trileaflet aortic valve. Mild diffuse aortic valve thickening. Mild diffuse aortic valve calcification. Aortic valve sclerosis / mild aortic valve stenosis. Pulmonic Valve The pulmonic valve is not well visualized. Great Vessels Normal sized aortic root. Pericardium/Pleural No pericardial effusion. MMode/2D Measurements & Calculations LVIDd: 4.7 cm IVSd: 1.1 cm LVOT diam: 2.0 cm LVIDs: 3.1 cm LVPWd: 1.0 cm LVOT area: 3.0 cm2 RVDd: 3.8 cm FS: 33.8 % Ao root diam: 3.0 cm LAV(MOD-bp): 46.3 ml LA A4 area: 16.1 cm2 LAV(MOD-bp) Indexed: 21.7 ml/m2 LAV(MOD-sp2): 47.2 ml LAV(MOD-sp4): 41.1 ml LA dimension(2D): 4.4 cm RA A4 area: 13.3 cm2 Time Measurements MV dec time: 0.19 sec Doppler Measurements & Calculations MV E max trip: 75.8 cm/sec Lat Peak E' Trip: 9.5 cm/sec Med Peak E' Trip: 9.2 cm/sec MV A max trip: 87.6 cm/sec E/E' lat: 8.0 E/E' med: 8.3 MV E/A: 0.87 Ao V2 max: 170.2 cm/sec LV V1 max: 117.5 cm/sec PA V2 max: 160.3 cm/sec Ao max P.6 mmHg LV V1 max P.5 mmHg PEG(V,D): 2.1 cm2 ECHO/Echo Complete Interpretation Summary The study was technically difficult. Left ventricular systolic function is normal. The estimated ejection fraction is 65 %. Trivial mitral valve insufficiency. Trivial tricuspid valve insufficiency. Aortic valve sclerosis / mild aortic valve stenosis. Unable to estimate RV systolic pressure/pulmonary artery pressure due to techni juan difficult study. Diastolic function is indeterminate. Ordering Physician: Chad Reese Referring Physician: Leonel Orr Performed By: Evy Zuniga, TIFFANIE, RVT
--- NOTE | 2021-02-06 08:23 | CL.D_ITS ---
Patient Name: ESTEFANY PEPPER Study Date: 02/06/2021 Performing: Chad Reese MD Ht: 67 inches 170 cm : 1950 Wt: 227.4 lbs 103 kg Age: 70 Gender: male BSA: 2.13 PROCEDURE(S) PERFORMED GA74-BAL/COR/LV CLINICAL PROFILE AND INDICATIONS Indications: Suspected CAD Heart Failure: None Stress/Imaging Date: 02/05/2021tress Test with SPECT MPI: Positive Intermediate Risk Angina Classification Anginal Classification w/in 2 Weeks: Anginal Equivalent Dyspnea CAD Presentations: Other: dyspnea on exertion CONCLUSIONS Normal Left Ventricular End Diastolic Pressure Normal LV size, wall motion,and systolic function LVEF: by LV gram 65 % [place] Multivessel CAD RCA: stents: patent No mitral valve insufficiency appreciated RECOMMENDATIONS Risk factor modification Medical therapy DESCRIPTION OF PROCEDURE The patient arrived to the procedure lab. The risks and benefits of the procedure as well as a full d escription of our services here and current unavailability of surgical backup were fully explained to the patient and/or their significant other prior to the catheterization. The Timeout was completed, verifying the correct patient and procedure. The patient's procedural site was prepped and draped in the usual fashion. Local anesthetic was given subcutaneously to right radial region with Lidocaine 2% . Using a modified Seldinger technique, arterial access was obtained via the right radial artery, a 6 Fr sheath was inserted. Left Coronary Artery selective angiography was performed in multiple views u sing a 5 Fr. 4.0 Windsor catheter. Right Coronary Artery selective angiography was then performed in mu ltiple views using a 5 Fr. 4.0 Windsor catheter. Left Ventriculography was performed in CHAPA projection using a 5 Fr. Pigtail catheter. LV to AO pullback pressures were then recorded.The arterial sheath was pulled and a TR Band was applied for hemostasis w/ 12ml air CORONARY ANGIOGRAPHY DOMINANCE: Right Dominant LEFT HEART ASSESSMENT Left Ventricular Ejection Fraction: by LV Gram 65 % Normal LV wall motion Normal Left Ventricular End Diastolic Pressure LVEDP: 8 mmHg LEFT MAIN: Mild calcification LEFT ANTERIOR DESCENDING ARTERY: PROX LAD: Moderate calcification MID LAD: Mild luminal irregularities CIRCUMFLEX ARTERY: Angiographically normal RAMUS: Angiographically normal RIGHT CORONARY ARTERY: PROX RCA: Previously placed stent is patent with mild luminal irregularities MID RCA: Mild luminal irregularities DISTAL RCA: eccentric: 10 - 25 % Stenosis, Previously placed stent is patent VALVE FINDINGS: No Mitral Insufficency appreciated AORTIC ROOT: Angiographically normal COMPLICATIONS No Complications PROCEDURE MEDICATIONS Versed 1 mg IV Fentanyl 50 mcg IV Oxygen: 2 L/min via nasal cannula Heparin given IA 02/06/2021 07:43:38 Verapamil 2.5mg, Ntg 100mcgs, 2000 units of Heparin given IA 02/06/2021 07:43:38 SUMMARY OF HEMODYNAMIC DATA Time AIR REST ECG 07:22:38 AO 121/62 (84) SA 07:46:31 LV 162/-6, 16 07:53:13 LV 150/-4, 8 07:53:19 LV 141/-5, 16 07:54:08 LV 155/-5, 18 07:54:15 LVp 129/-3, 10 07:54:21 AOp 144/60 (94) 07:54:26 Signed By Chad Reese MD On 02/06/2021 08:23:14 Chad Reese MD
[2021-02-06] MEDS: 0.9% Normal Saline 1,000 ML 75 ML IV (08:34)
[2021-02-06] MEDS: Tamsulosin HCl 0.4 MG Capsule PO (08:37)
[2021-02-06] MEDS: Gabapentin 100 MG Capsule 200 MG PO (08:37)
[2021-02-06] MEDS: Pantoprazole Sodium 20 MG Tablet PO (08:37)
[2021-02-06] MEDS: Ferrous Gluconate 324 MG Tablet PO (08:37)
[2021-02-06] MEDS: Insulin Lispro 100 UNIT/ML INSULN.PEN SC (12:12)
[2021-02-06 12:25] LABS: Bedside Glucose 186 mg/dL (70-110)
--- NOTE | 2021-02-06 13:14 | PCM.DC ---
Discharge Instructions Diet Discharge Diet: Low fat / Low cholesterol and 2000 Calorie Control Diet Activity Discharge Activity: Return to Normal Activity Dressing / Incision Call your doctor if you observe: Fever of 101 or Higher, Shortness of breath, Dizziness, Swelling in the ankles, Chest pain and Increased palpitations (irregular heartbeat) Follow Up Care Test Results: Test results from this visit will be discussed in further detail at your follow-up appointment, if applicable. Discharge Plan Admission Admit Date/Time: 02/04/21 11:04 Attending Provider: Mikael Linares Primary Care Provider: Umesh Orr Consulting Providers: Clemente Ghosh Instructions Patient Instructions: ED Chest Pain, Noncardiac Discharge Orders/Prescriptions Prescriptions: Continued Daliresp 500 mcg tablet 500 mcg PO DAILY RF: 0 omega-3 fatty acids [Fish Oil Concentrate] 1,000 mg capsule 2,000 mg PO BID RF: 0 glipizide 5 mg tablet 5 mg PO BID RF: 0 nifedipine 90 mg tablet extended release 90 mg PO DAILY RF: 0 Spiriva Respimat 2.5 mcg/actuation mist 2 puff INHALATION DAILY RF: 0 tamsulosin 0.4 mg capsule 0.4 mg PO DAILY RF: 0 vitamin B complex [B Complex-Vitamin B12] tablet 1 tablet PO MOWEFR RF: 0 cholecalciferol (vitamin D3) 2,000 unit tablet 2,000 unit tablet 2,000 unit PO DAILY RF: 0 fluticasone propionate [Allergy Relief (fluticasone)] 50 mcg/actuation spray,suspension 1 spray INTRANASAL PRN PRN (Reason: allergies) RF: 0 torsemide 10 mg tablet 5 mg PO DAILY RF: 0 montelukast 10 mg tablet 10 mg PO DAILY RF: 0 albuterol sulfate 2.5 mg /3 mL (0.083 %) solution for nebulization 2.5 mg INHALATION 4X/DAY PRN (Reason: Sob &/Or Wheezing) RF: 0 aspirin [Adult Aspirin Regimen] 81 mg tablet,delayed release (DR/EC) 81 mg PO DAILY RF: 0 ferrous gluconate 324 mg (37.5 mg iron) tablet 324 mg PO DAILY RF: 0 magnesium oxide 400 mg magnesium tablet 400 mg PO DAILY RF: 0 atorvastatin 40 MG tablet 40 mg PO QHS RF: 0 metformin 1,000 MG tablet 1,000 mg PO BIDCM RF: 0 valsartan 320 MG tablet 320 mg PO DAILY RF: 0 albuterol sulfate 1 PUFF inhaler 2 puff INHALATION Q4H PRN PRN (Reason: Shortness Of Breath) RF: 0 budesonide-formoterol 1 INHALER inhaler 2 puff INHALATION BID RF: 0 pantoprazole 20 MG tablet 20 mg PO DAILY Qty: 30 RF: 0 gabapentin 100 mg capsule 100 mg PO .COMPLEX RF: 0 apixaban 5 mg tablet 5 mg PO BID Qty: 180 RF: 4 metoprolol tartrate 50 mg tablet 50 mg PO BID Qty: 180 RF: 3 Referrals / Follow Up: Umesh Orr MD [Primary Care Provider] - In 1 Week Chad Reese MD [STAFF PHYSICIAN] - Within 1 Month Disposition Disposition (needs filled in before D/C Order can be placed): Home, Self Care
[2021-02-06] MEDS: Ipratropium/Albuterol Sulfate 3 ML AMPUL.NEB INHALATION (13:32)
--- NOTE | 2021-02-06 14:14 | PCM.DC.SUM ---
Providers Date of Admission: 02/04/21 Primary Care Physician: Dr. Umesh Orr MD Consultations 02/04/21 11:49 Consult: Cardiology Routine Consulting Provider: Clemente Ghosh Reason for Consult: Repeat stress vs cardiac cath EMERGENT Consult: No MD Notified: Yes Date Notified: 02/04/21 Time Notified: 12:39 Method of Notification: Page Reason For Visit: CHEST PAIN Diagnosis Discharge Diagnosis (1) Chest pain: Status: Acute Code(s): R07.9 - Chest pain, unspecified Medications at Discharge Home Medications albuterol sulfate 2 puff INHALATION Q4H PRN PRN 06/24/15 atorvastatin 40 mg PO QHS 06/24/15 budesonide-formoterol 2 puff INHALATION BID 06/24/15 metformin 1,000 mg PO BIDCM 06/24/15 valsartan 320 mg PO DAILY 06/24/15 cholecalciferol (vitamin D3) 50 mcg (2,000 unit) tablet 2,000 unit PO DAILY 04/14/18 glipizide 5 mg tablet 5 mg PO BID tablet 04/14/18 nifedipine 90 mg tablet,extended release 90 mg PO DAILY 04/14/18 omega-3 fatty acids 1,000 mg capsule 2,000 mg PO BID cap 04/14/18 roflumilast 500 mcg tablet 500 mcg PO DAILY 04/14/18 tamsulosin 0.4 mg capsule 0.4 mg PO DAILY 04/14/18 tiotropium bromide 2.5 mcg/actuation mist for inhalation 2 puff INHALATION DAILY 04/14/18 vitamin B complex 1 tablet PO MOWEFR tablet 04/14/18 pantoprazole 20 mg PO DAILY #30 tablet 07/28/18 albuterol sulfate 2.5 mg INHALATION 4X/DAY PRN ml 10/15/18 fluticasone propionate 50 mcg/actuation nasal spray,suspension 1 spray INTRANASAL PRN PRN 10/15/18 montelukast 10 mg tablet 10 mg PO DAILY 10/15/18 torsemide 10 mg tablet 5 mg PO DAILY tablet 10/15/18 aspirin 81 mg tablet,delayed release 81 mg PO DAILY 04/22/19 metoprolol tartrate 50 mg tablet 50 mg PO BID #180 tablet 09/13/19 ferrous gluconate 324 mg (37.5 mg iron) tablet 324 mg PO DAILY 10/25/20 gabapentin 100 mg capsule 100 mg PO .COMPLEX cap 10/25/20 magnesium oxide 400 mg PO DAILY 10/25/20 apixaban 5 mg PO BID #180 tab 02/06/21 Hospital Course Procedures 2-D Echocardiogram and Cardiac catheterization Summary of Care Provided Minutes Spent on Discharge: 40 Hospital Course: Per HPI: ESTEFANY PEPPER, is a 70 M who presents with chronic shortness of breath and intermittent chest pain. He did have a recent stress test done in October which was unremarkable though there was comment on diminished tracer uptake at rest which normalized following the stress test. Initial troponin in the ER was normal and EKG was unremarkable. He recently was diagnosed with new onset A. fib and was just given a 30-day event monitor. This morning he woke up and had another episode of chest pain which did improve with 1 nitro at home. EKG was unremarkable however given his recent issues with the stress test and continued shortness of breath and intermittent chest pain, admission was offered. He states that he has had several episodes of chest pain since his previous stress test but they have all been short lived and relieved with rest consistent with stable angina. He states that his made him come into the hospital today. Hospital Course: 1. Chest pain/A. fib/HTN/HLD/obesity/CAD status post [id number]-old male presents to the hospital with shortness of breath and intermittent chest pain. He did have a recent stress test in October which was unremarkable but there was diminished uptake that was thought that could be due to gastric attenuation. However with continued chest pain he underwent stress test again which was abnormal so he underwent a heart cath today which demonstrated normal coronary arteries. We will continue with all of his home medications, he can restart his Metformin on , and he can restart his Eliquis tomorrow. We will need to obtain a BMP on as well secondary to contrast load from the heart cath. Also recommend following up with his PCP in 3 to 5 days and cardiology as scheduled. I discussed with him and his the plan for discharge today and they expressed understanding of the risk and benefits of going home and would like to go home today. 2. Type 2 diabetes, COPD, GERD are all chronic medical conditions which complicate his care. His home medications were continued where appropriate Physical Exam Const alert, oriented x3 and no apparent distress General Appearance: cooperative HEENT normocephalic and moist oral mucous membranes Eyes PERRL, EOMs intact bilaterally and conjunctivae normal Neck supple and no JVD Resp normal respiratory effort, no retractions, no use of accessory muscles and clear to auscultation bilaterally Auscultation: Negative for crackles, rales, rhonchi or wheezes Cardio regular rate, regular rhythm, S1 normal heart sound, S2 normal heart sound and no murmurs GI soft to palpation, non-tender and non-distended; Negative for hepatosplenomegaly Inspection: central obesity Extremity no clubbing, cyanosis or edema Skin no rashes or lesions noted Neuro no focal motor deficits and no sensory deficits noted Psych affect normal Appearance: appropriate Weight / BMI Weight Weight: 226 lb 13.69 oz Body Mass Index (BMI) 35.5 ABG / Lab / Microbiology Data Result Diagrams: 02/05/21 05:41 02/05/21 05:41 Laboratory: Laboratory Results - last 24 hr 02/05/21 17:11: POC Glucose 197 H 02/05/21 21:02: POC Glucose 185 H 02/06/21 06:10: POC Glucose 152 H 02/06/21 12:11: POC Glucose 186 H D/C Instructions Discharge Diet: Low fat / Low cholesterol and 2000 Calorie Control Diet Call your doctor if you observe: Fever of 101 or Higher, Shortness of breath, Dizziness, Swelling in the ankles, Chest pain and Increased palpitations (irregular heartbeat) Meaningful Use Info Meaningful Use Diagnoses (Choose all that apply): None applicable Discharge Plan Admission Admit Date/Time: 02/04/21 11:04 Attending Provider: Mikael Linares Primary Care Provider: Umesh Orr Consulting Providers: Clemente Ghosh Instructions Patient Instructions: ED Chest Pain, Noncardiac Discharge Orders/Prescriptions Prescriptions: Continued Daliresp 500 mcg tablet 500 mcg PO DAILY RF: 0 omega-3 fatty acids [Fish Oil Concentrate] 1,000 mg capsule 2,000 mg PO BID RF: 0 glipizide 5 mg tablet 5 mg PO BID RF: 0 nifedipine 90 mg tablet extended release 90 mg PO DAILY RF: 0 Spiriva Respimat 2.5 mcg/actuation mist 2 puff INHALATION DAILY RF: 0 tamsulosin 0.4 mg capsule 0.4 mg PO DAILY RF: 0 vitamin B complex [B Complex-Vitamin B12] tablet 1 tablet PO MOWEFR RF: 0 cholecalciferol (vitamin D3) 2,000 unit tablet 2,000 unit tablet 2,000 unit PO DAILY RF: 0 fluticasone propionate [Allergy Relief (fluticasone)] 50 mcg/actuation spray,suspension 1 spray INTRANASAL PRN PRN (Reason: allergies) RF: 0 torsemide 10 mg tablet 5 mg PO DAILY RF: 0 montelukast 10 mg tablet 10 mg PO DAILY RF: 0 albuterol sulfate 2.5 mg /3 mL (0.083 %) solution for nebulization 2.5 mg INHALATION 4X/DAY PRN (Reason: Sob &/Or Wheezing) RF: 0 aspirin [Adult Aspirin Regimen] 81 mg tablet,delayed release (DR/EC) 81 mg PO DAILY RF: 0 ferrous gluconate 324 mg (37.5 mg iron) tablet 324 mg PO DAILY RF: 0 magnesium oxide 400 mg magnesium tablet 400 mg PO DAILY RF: 0 atorvastatin 40 MG tablet 40 mg PO QHS RF: 0 metformin 1,000 MG tablet 1,000 mg PO BIDCM RF: 0 valsartan 320 MG tablet 320 mg PO DAILY RF: 0 albuterol sulfate 1 PUFF inhaler 2 puff INHALATION Q4H PRN PRN (Reason: Shortness Of Breath) RF: 0 budesonide-formoterol 1 INHALER inhaler 2 puff INHALATION BID RF: 0 pantoprazole 20 MG tablet 20 mg PO DAILY Qty: 30 RF: 0 gabapentin 100 mg capsule 100 mg PO .COMPLEX RF: 0 apixaban 5 mg tablet 5 mg PO BID Qty: 180 RF: 4 metoprolol tartrate 50 mg tablet 50 mg PO BID Qty: 180 RF: 3 Referrals / Follow Up: Umesh Orr MD [Primary Care Provider] - In 1 Week Chad Reese MD [STAFF PHYSICIAN] - Within 1 Month Disposition Disposition (needs filled in before D/C Order can be placed): Home, Self Care Charges/Coding Visit Charges OBSV E&M: 54377 Observation care discharge
--- NOTE | 2021-02-06 14:42 | PCM.PN.CARD ---
Subjective Subjective The patient is now status post diagnostic cardiac catheterization. He appears to be resting comfortably at this time. Objective Data Vital Signs: Vital Signs Temp Pulse Resp BP Pulse Ox 97.8 F 66 20 H 146/65 H 96 02/06/21 12:00 02/06/21 13:33 02/06/21 13:33 02/06/21 12:00 02/06/21 13:33 Oxygen Flow Rate (L/min) 2 Oxygen Delivery Method Nasal Cannula Weight: 226 lb 13.69 oz Body Mass Index (BMI) 35.5 Intake & Output: Intake and Output for Last 24 Hours 02/04/21 02/05/21 02/06/21 23:59 23:59 23:59 Intake Total 400 / 800 1270 / 1270 513.75 / 513.75 Output Total 400 / 400 Balance 400 / 800 1270 / 1270 113.75 / 113.75 Lab / Micro Data Result Diagrams: 02/05/21 05:41 02/05/21 05:41 Labs: Laboratory Results - last 24 hr 02/05/21 17:11: POC Glucose 197 H 02/05/21 21:02: POC Glucose 185 H 02/06/21 06:10: POC Glucose 152 H 02/06/21 12:11: POC Glucose 186 H Cardiology Labs/Tests Cardiac Cath:. . CONCLUSIONS Normal Left Ventricular End Diastolic Pressure Normal LV size, wall motion,and systolic function LVEF: by LV gram 65 % [place] Multivessel CAD RCA: stents: patent No mitral valve insufficiency appreciated RECOMMENDATIONS Risk factor modification Medical therapy DESCRIPTION OF PROCEDURE The patient arrived to the procedure lab. The risks and benefits of the procedure as well as a full description of our services here and current unavailability of surgical backup were fully explained to the patient and/or their significant other prior to the catheterization. The Timeout was completed, verifying the correct patient and procedure. The patient's procedural site was prepped and draped in the usual fashion. Local anesthetic was given subcutaneously to right radial region with Lidocaine 2%. Using a modified Seldinger technique, arterial access was obtained via the right radial artery, a 6Fr sheath was inserted. Left Coronary Artery selective angiography was performed in multiple views using a 5 Fr. 4.0 Worth catheter. Right Coronary Artery selective angiography was then performed in multiple views using a 5 Fr. 4.0 Worth catheter. Left Ventriculography was performed in CHAPA projection using a 5 Fr. Pigtail catheter. LV to AO pullback pressures were then recorded.The arterial sheath was pulled and a TR Band was applied for hemostasis w/ 12ml air CORONARY ANGIOGRAPHY DOMINANCE: Right Dominant LEFT HEART ASSESSMENT Left Ventricular Ejection Fraction: by LV Gram 65 % Normal LV wall motion Normal Left Ventricular End Diastolic Pressure LVEDP: 8 mmHg LEFT MAIN: Mild calcification LEFT ANTERIOR DESCENDING ARTERY: PROX LAD: Moderate calcification MID LAD: Mild luminal irregularities CIRCUMFLEX ARTERY: Angiographically normal RAMUS: Angiographically normal RIGHT CORONARY ARTERY: PROX RCA: Previously placed stent is patent with mild luminal irregularities MID RCA: Mild luminal irregularities DISTAL RCA: eccentric: 10 - 25 % Stenosis, Previously placed stent is patent VALVE FINDINGS: No Mitral Insufficency appreciated AORTIC ROOT: Angiographically normal Physical Exam Narrative The patient appears to be resting comfortably in no acute distress. Const alert and oriented x3 Orientation / Consciousness: awake HEENT normocephalic, head/scalp atraumatic and hearing grossly normal bilaterally Eyes PERRL, EOMs intact bilaterally and conjunctivae normal Neck full ROM, supple and no JVD Resp normal respiratory effort and clear to auscultation bilaterally Cardio regular rate, regular rhythm, S1 normal heart sound and S2 normal heart sound GI normal to inspection, nondistended, normoactive bowel sounds Extremity no pedal edema Peripheral Pulses: Yes radial pulses present right (No obvious bruit; no obvious ecchymoses) 2+ Psych mental status grossly normal Assessment & Plan Assessment/Plan (1) Shortness of breath: PLAN: It appears the patient's main concern was shortness of breath/dyspnea. The etiology is unclear as to whether this is cardiovascular versus related to his underlying pulmonary condition and obstructive sleep apnea. From a cardiac standpoint he has undergone further evaluation, based upon his abnormal pharmacologic stress nuclear imaging study, with a diagnostic cardiac catheterization. The results are as noted. He did not require PCI. He is going to have a follow-up echocardiogram to reassess his valvular anatomy and physiology. (2) Atherosclerotic heart disease of [place] coronary artery without angina pectoris: QUALIFIERS: [place] vs. transplanted heart: [place] heart Qualified Code(s): I25.10 - Atherosclerotic heart disease of [place] coronary artery without angina pectoris PLAN: The patient has a history of underlying CAD. He has undergone previous cardiac catheterization and RCA PCI in 2018. He had a repeat cardiac catheterization in 2019 which demonstrated his RCA PCI site to be patent. His cardiac catheterization this day also demonstrated his RCA PCI site to be patent. He is continuing evaluation care as noted above. (3) Presence of stent in coronary artery: PLAN: His previous PCI was reviewed. Again he had RCA PCI in 2018. Depending upon his clinical course and findings he may or may not need repeat evaluation in the cardiac catheterization laboratory. (4) Atrial fibrillation and flutter: PLAN: He will need continued rate limiting therapy. As long as his cardiac catheterization site is stable he can resume his anticoagulant therapy tomorrow. He will continue with his outpatient ambulatory monitor to assist in further evaluation of his cardiac rate and rhythm and the need for medication adjustment and/or further evaluation/therapy. (5) Essential hypertension: PLAN: He should continue risk factor evaluation and care/medical therapy as tolerated. (6) Hyperlipemia: QUALIFIERS: Hyperlipidemia type: unspecified Qualified Code(s): E78.5 - Hyperlipidemia, unspecified PLAN: His blood pressure will be monitored with his medications adjusted accordingly. (7) COPD (chronic obstructive pulmonary disease): QUALIFIERS: COPD type: unspecified COPD Qualified Code(s): J44.9 - Chronic obstructive pulmonary disease, unspecified PLAN: Again he does have a history of underlying pulmonary disease. This may be a contributing factor to his findings. He will undergo his cardiac evaluation. Depending upon his findings he may need further pulmonary evaluation care as well. Edith'l Comments The above was discussed and reviewed with the patient, his spouse, and Dr. Linares. This note was generated using a voice recognition system and there may be incorrect words, spelling or punctuation that were not noted when reviewing the office note prior to saving.
== END 2021-02-06 13:21 | disposition home or self-care (01) ==
LOC: ED 10:48 → PCU 11:14
PROVIDERS: Admitting Provider Family Medicine; Emergency Provider Emergency Medicine; PCP Family Medicine; Visit Provider Family Medicine
DX: R07.89 Other chest pain (principal); I48.91 Unspecified atrial fibrillation; E78.5 Hyperlipidemia, unspecified; I10 Essential (primary) hypertension; I25.10 Atherosclerotic heart disease of native coronary artery without angina pectoris; E66.9 Obesity, unspecified; E11.9 Type 2 diabetes mellitus without complications; J44.9 Chronic obstructive pulmonary disease, unspecified; K21.9 Gastro-esophageal reflux disease without esophagitis; G47.33 Obstructive sleep apnea (adult) (pediatric); I27.20 Pulmonary hypertension, unspecified; Z68.35 Body mass index [BMI] 35.0-35.9, adult; Z79.899 Other long term (current) drug therapy; Z79.84 Long term (current) use of oral hypoglycemic drugs; Z79.82 Long term (current) use of aspirin; Z79.01 Long term (current) use of anticoagulants; Z87.891 Personal history of nicotine dependence; Z95.1 Presence of aortocoronary bypass graft; I48.92 Unspecified atrial flutter
CPT/HCPCS: 36415; 71045; 78452; 80048; 82962; 84484; 85025; 93005; 93017; 93306; 93458; 94640; 96360; 96361; 96372; 99152; 99153; 99218; 99285; A9500; J7030; J7040; Q9957; A4216; C1769; C1894; G0378; J2785; J3490; Q9967

== ENCOUNTER → 2021-02-08 12:11 | Outpatient (CLI) | payer OTHER, MEDICARE, SELFPAY ==
[2018-05-01 14:21] VITALS: BMI 36.8
[2021-02-04 11:55] VITALS: BMI 35.5
[2021-02-08 12:39] LABS: Hematocrit 32.6 % (40-54); Hemoglobin 10.6 g/dL (13.0-16.5); Mean Corp Hgb Conc 32.5 g/dL (32-36); Mean Corpuscular Hgb 28.9 pg (27.0-32.0); Mean Corpuscular Volume 88.8 fL (80-94); Mean Platelet Vol. 8.9 fl (6.2-12.0); Platelet Count 246 K/mm3 (150-450); RBC Distribution Width CV 14.2 % (11.6-14.6); RBC Distribution Width SD 45.9 fl (35.1-43.9); Red Blood Count 3.67 M/mm3 (4.6-6.2); White Blood Count 6.7 K/mm3 (4.4-11.0)
[2021-02-08 13:07] LABS: Anion Gap 9 (5-15); BUN 11 mg/dL (7-18); BUN/Creat Ratio 11.6 RATIO (10-20); Calcium,Total 8.6 mg/dL (8.5-10.1); Chloride 100 mmol/L (98-107); Cholesterol 100 mg/dL (200); Creatinine, Serum 0.95 mg/dL (0.70-1.30); EST Glomerular Filtration Rate 84 mL/min (>60); Est Glom Filt Rate - Afr Amer 102 mL/min (>60); Glucose 148 mg/dL (74-106); High Density Lipoprotein 31 mg/dL; Sodium Level 135 mmol/L (136-145); Triglycerides 277 mg/dL; Very Low Density Lipoprotein 55 mg/dL (5-40)
== END ==
PROVIDERS: PCP Family Medicine; Referring Provider Family Medicine; Visit Provider Family Medicine
DX: R53.83 Other fatigue (principal); Z95.5 Presence of coronary angioplasty implant and graft
CPT/HCPCS: 36415; 80048; 80061; 85027

== ENCOUNTER → 2021-02-27 14:14 | Outpatient (CLI) | payer OTHER, MEDICARE, SELFPAY ==
[2018-05-01 14:21] VITALS: BMI 36.8
[2021-02-04 11:55] VITALS: BMI 35.5
[2021-02-27 18:10] LABS: Erythrocyte Sedimentation Rate 10 mm/hr (0-20)
[2021-02-27 18:11] LABS: Platelet Count 276 K/mm3 (150-450); RET-HE 32.6 pg (30-35); Reticulocyte Count 2.69 % (0.5-1.5)
[2021-02-27 18:36] LABS: CRP 5.01 mg/L (0.0-3.0)
[2021-02-27 18:38] LABS: Vitamin D,25 Hydroxy 49.9 ng/mL
[2021-02-27 18:39] LABS: Vitamin B12 933 pg/mL (211-911)
[2021-02-27 19:02] LABS: Ferritin 9 ng/mL (26-388); Iron 62 ug/dL (65-175); Thyroid Stim Hormone (TSH) 0.87 uIU/mL (0.358-3.74)
[2021-02-27 19:12] LABS: BNP,B-Type NATRIURETIC PEPTIDE 69.9 pg/mL (0-100)
== END ==
PROVIDERS: Nurse Practitioner Family; PCP Family Medicine; Referring Provider Family Medicine; Visit Provider Family Medicine
DX: N39.0 Urinary tract infection, site not specified (principal); R41.3 Other amnesia; D64.9 Anemia, unspecified; R53.83 Other fatigue
CPT/HCPCS: 36415; 82306; 82607; 82728; 82746; 83540; 83880; 84443; 85045; 85652; 86140

== ENCOUNTER → 2021-03-06 07:42 | Outpatient (CLI) | payer MEDICARE, SELFPAY ==
[2018-05-01 14:21] VITALS: BMI 36.8
--- NOTE | 2021-03-06 07:45 | CT_ITS ---
STUDY: CT BRAIN WITHOUT CONTRAST REASON FOR EXAM: Male, 71 years old. New on set memory change RADIATION DOSAGE (If Supplied By Facility): CTDIvol = ( 44.99 ) mGy, DLP = ( 796.11 ) mGycm TECHNIQUE: Transaxial CT imaging of the brain was performed without administration of intravenous contrast material. Individualized dose optimization techniques were used for this CT. COMPARISON: No relevant priors. FINDINGS: Normal soft tissue structures. Normal calvarium. There is mild cerebral atrophy with widening of the extra-axial spaces and ventricular dilatation. There are areas of decreased attenuation within the white matter tracts of the supratentorial brain, consistent with microvascular disease changes. Normal basal ganglia and thalami. Normal brainstem. Normal cerebellum. There is no intracranial hemorrhage. There are no findings of an acute ischemic infarction. Normal visualized paranasal sinuses. CT/Brain/Head without Contrast IMPRESSION: Chronic involutional changes of the brain. Electronically Signed: Mihir Muller MD at 8:45 EDT , Service support ,
== END ==
PROVIDERS: PCP Family Medicine; Referring Provider Family Medicine; Visit Provider Family Medicine
DX: R41.3 Other amnesia (principal)
CPT/HCPCS: 70450

== ENCOUNTER 2021-06-02 01:55 | Inpatient (IN) | payer OTHER, SELFPAY ==
[2018-05-01 14:21] VITALS: BMI 36.8
[2021-06-02] VITALS (25 sets, daily range): BP systolic 132–206; BP diastolic 57–91; PULSE 52–101; RESP 16–26; TEMP 36.6–37; O2SAT 82–99; BMI 35.6; BMI 25.5
--- NOTE | 2021-06-02 02:08 | EKG12_ITS ---
Test Reason : DYSRHYTHMIA Blood Pressure : / mmHG Vent. Rate : 053 BPM Atrial Rate : 053 BPM P-R Int : 160 ms QRS Dur : 094 ms QT Int : 432 ms P-R-T Axes : 054 050 055 degrees QTc Int : 405 ms Sinus bradycardia Otherwise normal ECG Confirmed by JAYY SIMMS, ALONZO ([id number]), newspaper copy editor RENÉ SANDOVAL ([id number]) on 06/04/2021 1:21:38 PM Referred By: DERIAN Confirmed By:ALONZO HOPE MD
--- NOTE | 2021-06-02 02:10 | EDS_ITS ---
HPI History of Present Illness Chief Complaint: Shortness of Breath Narrative Narrative: Patient is a 71-year-old male with past medical history of COPD who wears 2 L nasal cannula during the day and 3 L at night. He reports that he has been around his and [id number] who recently tested positive for Covid about 3 to 4 days ago. He states in the past 2 days he has had mild congestion and cough and worsening shortness of breath despite wearing his oxygen. He states he has a mild chest discomfort associated with this and with his worsening symptoms called EMS to bring him in for evaluation [facility] Medical History (Updated 06/02/21 @ 03:[address] Troy, DO) Acute and chronic respiratory failure with hypoxia Alcoholism Atherosclerotic heart disease of [place] coronary artery without angina pectoris Atrial fibrillation and flutter CAD (coronary artery disease) COPD (chronic obstructive pulmonary disease) Dyspnea Essential hypertension Hydrocele Hydrocele, bilateral Hyperlipemia Hypokalemia Lung nodule, multiple ELISHA (obstructive sleep apnea) Presence of stent in coronary artery (~05/01/18) Pulmonary HTN Suspected COVID-19 virus infection Type 2 diabetes mellitus Home Medications albuterol sulfate 2 puff INHALATION Q4H PRN PRN 06/24/15 [History Last Taken 07/24/18] atorvastatin 40 mg PO QHS 06/24/15 [History Last Taken 10/12/20] metformin 1,000 mg PO BIDCM 06/24/15 [History Last Taken 10/13/20] valsartan 320 mg PO DAILY 06/24/15 [History Last Taken 10/13/20] cholecalciferol (vitamin D3) 50 mcg (2,000 unit) tablet 2,000 unit PO DAILY 04/14/18 [History Last Taken 10/12/20] glipizide 5 mg tablet 5 mg PO BID tablet 04/14/18 [History Last Taken 10/13/20] nifedipine 90 mg tablet,extended release 90 mg PO DAILY 04/14/18 [History Last Taken 10/13/20] omega-3 fatty acids 1,000 mg capsule 2,000 mg PO BID cap 04/14/18 [History Last Taken 10/13/20] roflumilast 500 mcg tablet 500 mcg PO DAILY 04/14/18 [History Last Taken 08/03] tamsulosin 0.4 mg capsule 0.4 mg PO DAILY 04/14/18 [History Last Taken 10/12/20] vitamin B complex 1 tablet PO MOWEFR tablet 04/14/18 [History Last Taken 10/13/20] pantoprazole 20 mg PO DAILY #30 tablet 07/28/18 [Rx Last Taken 10/13/20] albuterol sulfate 2.5 mg INHALATION 4X/DAY PRN ml 10/15/18 [History Last Taken Unknown] fluticasone propionate 50 mcg/actuation nasal spray,suspension 1 spray INTRANASAL PRN PRN 10/15/18 [History Last Taken Unknown] montelukast 10 mg tablet 10 mg PO DAILY 10/15/18 [History Last Taken 10/13/20] torsemide 10 mg tablet 5 mg PO DAILY tablet 10/15/18 [History Last Taken 10/13/20] aspirin 81 mg tablet,delayed release 81 mg PO DAILY 04/22/19 [History Last Taken 10/12/20] metoprolol tartrate 50 mg tablet 50 mg PO BID #180 tablet 09/13/19 [Rx Last Taken 10/13/20] ferrous gluconate 324 mg (37.5 mg iron) tablet 324 mg PO DAILY 10/25/20 [History Last Taken Unknown] gabapentin 100 mg capsule 100 mg PO .COMPLEX cap 10/25/20 [History Last Taken Unknown] magnesium oxide 400 mg PO DAILY 10/25/20 [History Last Taken Unknown] apixaban 5 mg PO BID #180 tab 02/06/21 [Rx Last Taken Unknown] mometasone 200 mcg/actuation HFA aerosol inhaler 2 puff INHALATION BID 05/08/21 [History Last Taken Unknown] tiotropium 2.5 mcg-olodaterol 2.5 mcg/actuation mist for inhalation 2 puff INHALATION Q24H 05/08/21 [History Last Taken Unknown] Allergy/AdvReac Type Severity Reaction Status Date / Time doxycycline Allergy Severe Rash Verified 06/02/21 02:00 empagliflozin AdvReac Severe yeast Verified 06/02/21 02:00 [From Jardiance] infection lisinopril AdvReac Intermediate Cough Verified 06/02/21 02:00 Family History (Reviewed 05/08/21 @ 14:36 by Christos Gonzalez [employer]ANT [employer] GUARD, [employer]ARD-C) Father COPD (chronic obstructive pulmonary disease) Heart disease Mother CAD (coronary artery disease) Myocardial infarction CVA (cerebral vascular accident) Diabetes Brother CAD (coronary artery disease) Pacemaker Diabetes History of coronary artery bypass surgery Brother Brain aneurysm Surgical History History of cardiac catheterization History of hip replacement History of left heart catheterization (LHC) (~02/06/21) Presence of coronary angioplasty implant and graft (~05/01/18) Social History (Updated 06/02/21 @ 03:[address] Jade Veliz MD) household members: spouse Smoking Status: Former smoker how long ago did patient quit smokin years ago, smoked since 14 years old. alcohol intake: former details: Quit in 1980 substance use type: does not use caffeine: Yes Type: coffee Number of servings: 2 ROS ROS ED Constitutional Constitutional ED: Denies chills or fever(s) ENT ENT ED: Reports rhinorrhea and sore throat Cardiovascular Cardiovascular: Reports chest pain Respiratory/Chest Respiratory/Chest: Reports cough and dyspnea Gastrointestinal Gastrointestinal: Denies abdominal pain, diarrhea, nausea or vomiting Genitourinary Genitourinary ED: Denies dysuria Musculoskeletal Musculoskeletal: Reports myalgias Integumentary Denies rash Neurologic Neurologic: Denies headache(s) EXAM Physical Exam Const Vital Signs: 06/02/21 01:56 06/02/21 02:01 06/02/21 02:04 Temperature 97.9 F Temperature Source Temporal Pulse Rate 54 L Respiratory Rate 26 H Respiratory Effort Short of Breath Respiratory Depth Shallow Respiratory Pattern Tachypnea Blood Pressure 206/68 H Blood Pressure Mean 114 Pulse Ox 82 87 94 Oxygen Delivery Method Room Air Nasal Cannula Nasal Cannula Oxygen Flow Rate (L/min) 3 4 4 06/02/21 02:11 06/02/21 03:02 Temperature 97.9 F 97.9 F Temperature Source Temporal Temporal Pulse Rate 54 L 52 L Respiratory Rate 26 H 16 Respiratory Effort Respiratory Depth Respiratory Pattern Blood Pressure 206/68 H 204/91 H Blood Pressure Mean 114 128 Pulse Ox 94 96 Oxygen Delivery Method Nasal Cannula Nasal Cannula Oxygen Flow Rate (L/min) 4 4 Positive well nourished, well developed and obese General Appearance ED: well developed Nutritional Appearance: obese HEENT Reports moist mucous membranes HEENT Narrative: No tongue or lip swelling no oral lesions no airway edema or compromise Eyes PERRL and EOMs intact bilaterally Neck supple and no JVD Neck Narrative: Positive anterior cervical lymphadenopathy Chest Wall palpation of chest normal Resp Resp Narrative: Breath sounds are diminished throughout with diffuse inspiratory and expiratory wheezes Cardio regular rhythm Rate: bradycardia and other Other Details: Bradycardic rate with regular rhythm radial pulses are plus 2 out of 4 bilaterally are equal and symmetric GI normal to inspection, nondistended, normoactive bowel sounds, non-tender, non- distended and no masses GI Narrative: No voluntary guarding no rigidity no pulsatile mass Auscultation: normoactive bowel sounds Palpation: soft Extremity normal to inspection Extremity Narrative: No asymmetric edema no pitting edema negative Homans' sign bilaterally Neuro oriented x3 and CN's II-XII intact bilaterally Sensorium / Orientation: alert Motor Exam: strength 5/5 throughout Psych mental status grossly normal Skin no rashes or lesions noted MDM MDM MDM Narrative Medical decision making narrative: Patient has a history of COPD and wears 2 L of oxygen during the day and 3 L at night. He is vaccinated against Covid but has direct exposure to people at home. He arrived to the hospital only 82% on his normal 2 L. With his report of mild congestion cough and increased shortness of breath there is high likelihood that he is developing Covid. A ra pid swab was obtained which is negative and his x-ray showed inflammatory changes consistent with pneumonitis most likely related to a Covid that was falsely negative on the rapid swab. Therefore PCR will be obtained. At this time based on his high risk for decompensation and the fact that he is needing higher demand of supplemental oxygen and his baseline I do not feel it is safe for him to return home and therefore patient will be admitted to the hospital for further care Lab Data Attestation: I reviewed the patient's lab results. Labs: Laboratory Results - last 24 hr 06/02/21 06/02/21 06/02/21 02:05 02:05 02:05 WBC 8.3 RBC 3.85 L Hgb 11.7 L Hct 34.6 L MCV 89.9 MCH 30.4 MCHC 33.8 RDW Std Deviation 49.1 H RDW Coeff of Anthony 15.0 H Plt Count 230 MPV 8.9 Immature Gran % (Auto) 0.700 Neut % (Auto) 72.5 H Lymph % (Auto) 20.2 [place] % (Auto) 4.9 Eos % (Auto) 1.3 Baso % (Auto) 0.4 Absolute Neuts (auto) 6.0 Absolute Lymphs (auto) 1.68 Nucleated RBC % 0 Sodium 131 L Potassium 3.4 L Chloride 96 L Carbon Dioxide 28.0 Anion Gap 7 BUN 12 Creatinine 1.09 Estim Creat Clear Calc 61.88 Est GFR (MDRD) Af Amer 86 Est GFR (MDRD) Non-Af 71 BUN/Creatinine Ratio 11.0 Glucose 135 H Calcium 9.5 Magnesium 1.9 Troponin I High Sens 13 B-Natriuretic Peptide 233.2 H Radiography Diagnostic Testing: Clinical Impression(s) from Imaging Studies Chest X-Ray 06/02/21 02:40 IMPRESSION: Interstitial pulmonary edema versus diffuse interstitial pneumonitis . Electronically Signed: Diann Connell MD at 3:10 EST , Service support , Discharge Plan Triage Chief Complaint: Shortness of Breath ED Provider: Lane Troy Dx/Rx/DC Orders Clinical Impression: COPD with acute exacerbation, Respiratory failure Prescriptions: No Action Daliresp 500 mcg tablet 500 mcg PO DAILY RF: 0 omega-3 fatty acids [Fish Oil Concentrate] 1,000 mg capsule 2,000 mg PO BID RF: 0 glipizide 5 mg tablet 5 mg PO BID RF: 0 nifedipine 90 mg tablet extended release 90 mg PO DAILY RF: 0 tamsulosin 0.4 mg capsule 0.4 mg PO DAILY RF: 0 vitamin B complex [B Complex-Vitamin B12] tablet 1 tablet PO MOWEFR RF: 0 cholecalciferol (vitamin D3) 2,000 unit tablet 2,000 unit tablet 2,000 unit PO DAILY RF: 0 fluticasone propionate [Allergy Relief (fluticasone)] 50 mcg/actuation spray,suspension 1 spray INTRANASAL PRN PRN (Reason: allergies) RF: 0 torsemide 10 mg tablet 5 mg PO DAILY RF: 0 montelukast 10 mg tablet 10 mg PO DAILY RF: 0 albuterol sulfate 2.5 mg /3 mL (0.083 %) solution for nebulization 2.5 mg INHALATION 4X/DAY PRN (Reason: Sob &/Or Wheezing) RF: 0 aspirin [Adult Aspirin Regimen] 81 mg tablet,delayed release (DR/EC) 81 mg PO DAILY RF: 0 ferrous gluconate 324 mg (37.5 mg iron) tablet 324 mg PO DAILY RF: 0 magnesium oxide 400 mg magnesium tablet 400 mg PO DAILY RF: 0 Asmanex HFA 200 mcg/actuation HFA aerosol inhaler 2 puff inhalation BID RF: 0 Stiolto Respimat 2.5-2.5 mcg/actuation mist 2 puff inhalation Q24H RF: 0 atorvastatin 40 MG tablet 40 mg PO QHS RF: 0 metformin 1,000 MG tablet 1,000 mg PO BIDCM RF: 0 valsartan 320 MG tablet 320 mg PO DAILY RF: 0 albuterol sulfate 1 PUFF inhaler 2 puff INHALATION Q4H PRN PRN (Reason: Shortness Of Breath) RF: 0 pantoprazole 20 MG tablet 20 mg PO DAILY Qty: 30 RF: 0 gabapentin 100 mg capsule 100 mg PO .COMPLEX RF: 0 apixaban 5 mg tablet 5 mg PO BID Qty: 180 RF: 4 metoprolol tartrate 50 mg tablet 50 mg PO BID Qty: 180 RF: 3 Primary Care Provider: Umesh Orr Referrals: Umesh Orr MD [Primary Care Provider] - Disposition Disposition: Acute Care Hospital [facility]
[2021-06-02 02:20] LABS: Absolute Lymphocyte Count 1.68 X10^3/uL (0.83-4.51); Basophil# 0.03 X10^3/uL; Basophil% 0.4 % (0-1); Eosinophil# 0.11 X10^3/uL; Eosinophils% 1.3 % (0-5); Hematocrit 34.6 % (40-54); Hemoglobin 11.7 g/dL (13.0-16.5); Lymphocyte # 1.68 X10^3/ul (0.83-4.51); Lymphocyte % 20.2 % (19-41); Mean Corp Hgb Conc 33.8 g/dL (32-36); Mean Corpuscular Hgb 30.4 pg (27.0-32.0); Mean Corpuscular Volume 89.9 fL (80-94); Mean Platelet Vol. 8.9 fl (6.2-12.0); Monocyte# 0.41 X10^3/uL; Monocyte% 4.9 % (0-10); NRBC Flagged by Analyzer 0 % (0-5); Neutrophil # 6.02 X10^3/uL (2.7-7.7); Neutrophil % 72.5 % (47-70); Platelet Count 230 K/mm3 (150-450); RBC Distribution Width SD 49.1 fl (35.1-43.9); Red Blood Count 3.85 M/mm3 (4.6-6.2); White Blood Count 8.3 K/mm3 (4.4-11.0)
[2021-06-02] MEDS: dexAMETHasone 10 MG/ML Vial IV (02:33)
--- NOTE | 2021-06-02 02:40 | RAD_ITS ---
STUDY: X-RAY CHEST REASON FOR EXAM: Male, 71 years old. cough TECHNIQUE: Single AP portable view of the chest. COMPARISON: 02/04/2021. FINDINGS: There is diffuse interstitial prominence with curly B-lines suggestive of early interstitial pulmonary edema versus diffuse interstitial pneumonitis. There is no demonstrated pleural abnormality. Normal size heart. Normal mediastinum and darryl. Normal visualized pulmonary arteries. Normal visualized aortic arch and descending thoracic aorta. There are diffuse degenerative changes of the visualized thoracic spine. There is degenerative osteoarthritis of the bilateral shoulders. There is no demonstrated abnormality of the visualized soft tissue structures of the upper abdomen. RAD/Chest 1 View (Portable) IMPRESSION: Interstitial pulmonary edema versus diffuse interstitial pneumonitis . Electronically Signed: Diann Connell MD at 3:10 EST , Service support ,
[2021-06-02 02:43] LABS: Anion Gap 7 (5-15); BUN 12 mg/dL (7-18); Calcium,Total 9.5 mg/dL (8.5-10.1); Chloride 96 mmol/L (98-107); Creatinine, Serum 1.09 mg/dL (0.70-1.30); EST Glomerular Filtration Rate 71 mL/min (>60); Est Glom Filt Rate - Afr Amer 86 mL/min (>60); Estimated Creatinine Clearance 61.88 ml/min; Glucose 135 mg/dL (74-106); Magnesium 1.9 mg/dL (1.6-2.6); Potassium 3.4 mmol/L (3.5-5.1); Sodium Level 131 mmol/L (136-145); Troponin-I HS 13 pg/mL (3.0-78.0)
[2021-06-02 03:03] LABS: BNP,B-Type NATRIURETIC PEPTIDE 233.2 pg/mL (0-100)
--- NOTE | 2021-06-02 03:26 | HP.PCM.HOS_ITS ---
HPI - General General Date of Service: 06/02/21 Chief Complaint: Cough, dyspnea, wheezing, family COVID +. HPI Narrative The patient is a 71 y/o M w/ PMHx: Chronic anemia/Fe Deficiency, PAF, CAD s/p PCI, Obesity, Chronic COPD with Chronic Hypoxic Respiratory Failure (2L NC day and 3L NC), Former tobacco use, Hx EtOH Abuse, HTN, HLD, ELISHA, Diabetes mellitus type II who presents to the [facility] ED on 06/02/21 with history of unfortunately his and his [id number] with onset of Covid type symptoms with a positive Covid test with onset himself Covid type symptoms x 2 days with mild congestion, sore throat, fatigue, malaise, cough and significantly worsening dyspnea as well as pleuritic chest discomfort in addition to diarrhea with no nausea or emesis no abdominal pain associated prompting ED evaluation. Patient has been vaccinated against COVID-19 with a 2 dose Moderna series but had not received his booster yet. His and mother in law he notes have also been vaccinated. Work-up in the ED included T 97.9, heart rate 54, initial BP 206/68, respiratory rate 26, initially 82% on 3 L with eventual improvement to 94% on 4 L with additionally albuterol inhalation, CBC with WC 8.3, hemoglobin 11.7, platelet 230 without marked shift, BMP sodium 131, potassium 3.4, chloride 96, glucose 135, magnesium 1.9, troponin high-sensitivity 13, BNP 233.2, chest x-ray with interstitial pulmonary edema versus diffuse interstital pneumonitis, rapid Covid antigen negative, Covid PCR pending upon evaluation. In the ED patient administered IV Decadron and albuterol inhalation x1. [facility] Medical History (Updated 06/02/21 @ 03:[address] Troy, DO) Acute and chronic respiratory failure with hypoxia Alcoholism Atherosclerotic heart disease of [place] coronary artery without angina pectoris Atrial fibrillation and flutter CAD (coronary artery disease) COPD (chronic obstructive pulmonary disease) Dyspnea Essential hypertension Hydrocele Hydrocele, bilateral Hyperlipemia Hypokalemia Lung nodule, multiple ELISHA (obstructive sleep apnea) Presence of stent in coronary artery (~05/01/18) Pulmonary HTN Suspected COVID-19 virus infection Type 2 diabetes mellitus Home Medications albuterol sulfate 2 puff INHALATION Q4H PRN PRN 06/24/15 [History Last Taken 07/24/18] atorvastatin 40 mg PO QHS 06/24/15 [History Last Taken 10/12/20] metformin 1,000 mg PO BIDCM 06/24/15 [History Last Taken 10/13/20] valsartan 320 mg PO DAILY 06/24/15 [History Last Taken 10/13/20] cholecalciferol (vitamin D3) 50 mcg (2,000 unit) tablet 2,000 unit PO DAILY 04/14/18 [History Last Taken 10/12/20] glipizide 5 mg tablet 5 mg PO BID tablet 04/14/18 [History Last Taken 10/13/20] nifedipine 90 mg tablet,extended release 90 mg PO DAILY 04/14/18 [History Last Taken 10/13/20] omega-3 fatty acids 1,000 mg capsule 2,000 mg PO BID cap 04/14/18 [History Last Taken 10/13/20] roflumilast 500 mcg tablet 500 mcg PO DAILY 04/14/18 [History Last Taken 10/12/20] tamsulosin 0.4 mg capsule 0.4 mg PO DAILY 04/14/18 [History Last Taken 10/12/20] vitamin B complex 1 tablet PO MOWEFR tablet 04/14/18 [History Last Taken 10/13/20] pantoprazole 20 mg PO DAILY #30 tablet 07/28/18 [Rx Last Taken 10/13/20] albuterol sulfate 2.5 mg INHALATION 4X/DAY PRN ml 10/15/18 [History Last Taken Unknown] fluticasone propionate 50 mcg/actuation nasal spray,suspension 1 spray INTRANASAL PRN PRN 10/15/18 [History Last Taken Unknown] montelukast 10 mg tablet 10 mg PO DAILY 10/15/18 [History Last Taken 10/13/20] torsemide 10 mg tablet 5 mg PO DAILY tablet 10/15/18 [History Last Taken 10/13/20] aspirin 81 mg tablet,delayed release 81 mg PO DAILY 04/22/19 [History Last Taken 10/12/20] metoprolol tartrate 50 mg tablet 50 mg PO BID #180 tablet 09/13/19 [Rx Last Taken 10/13/20] ferrous gluconate 324 mg (37.5 mg iron) tablet 324 mg PO DAILY 10/25/20 [History Last Taken Unknown] gabapentin 100 mg capsule 100 mg PO .COMPLEX cap 10/25/20 [History Last Taken Unknown] magnesium oxide 400 mg PO DAILY 10/25/20 [History Last Taken Unknown] apixaban 5 mg PO BID #180 tab 02/06/21 [Rx Last Taken Unknown] mometasone 200 mcg/actuation HFA aerosol inhaler 2 puff INHALATION BID 05/08/21 [History Last Taken Unknown] tiotropium 2.5 mcg-olodaterol 2.5 mcg/actuation mist for inhalation 2 puff INHALATION Q24H 05/08/21 [History Last Taken Unknown] Allergy/AdvReac Type Severity Reaction Status Date / Time doxycycline Allergy Severe Rash Verified 06/02/21 02:00 empagliflozin AdvReac Severe yeast Verified 06/02/21 02:00 [From Jardiance] infection lisinopril AdvReac Intermediate Cough Verified 06/02/21 02:00 Family History Father COPD (chronic obstructive pulmonary disease) Heart disease Mother CAD (coronary artery disease) Myocardial infarction CVA (cerebral vascular accident) Diabetes Brother CAD (coronary artery disease) Pacemaker Diabetes History of coronary artery bypass surgery Brother Brain aneurysm Surgical History History of cardiac catheterization History of hip replacement History of left heart catheterization (LHC) (~02/06/21) Presence of coronary angioplasty implant and graft (~05/01/18) Social History (Updated 06/02/21 @ 03:[address] Jade Veliz MD) household members: spouse Smoking Status: Former smoker how long ago did patient quit smokin years ago, smoked since 14 years old. alcohol intake: former details: Quit in 1980 substance use type: does not use caffeine: Yes Type: coffee Number of servings: 2 ROS ROS Narrative Admission Review of Systems: CONSTITUTIONAL: No weight loss, fever, chills, + weakness or fatigue. HEENT: + Headache, congestion/rhinorrhea. Eyes: No visual loss, blurred vision, double vision or yellow sclerae. Ears, Nose, Throat: No hearing loss, sneezing. SKIN: No rash or itching, lesions, wounds. CARDIOVASCULAR: No chest pain, chest pressure or chest discomfort, palpitations, edema, orthopnea, syncopal events. RESPIRATORY: + shortness of breath, cough, wheezing, no marked sputum, hemoptysis. GASTROINTESTINAL: + Diarrhea, No anorexia, nausea, vomiting, abdominal pain, melena, BRBPR. GENITOURINARY: No dysuria, frequency, urgency or retention. NEUROLOGICAL: + headache, No dizziness, syncope, paralysis, ataxia, numbness or tingling in the extremities, focal weakness, change in bowel or bladder control, seizure. MUSCULOSKELETAL: + muscle, back pain, joint pain or stiffness. HEMATOLOGIC: + anemia, bleeding or bruising. LYMPHATICS: No enlarged nodes. No history of splenectomy. PSYCHIATRIC: No history of depression or anxiety. ENDOCRINOLOGIC: No reports of sweating, cold or heat intolerance. No polyuria or polydipsia. ALLERGIES: + history of asthma, hives, eczema or rhinitis. Vital Signs Vital Signs Vital Signs: 06/02/21 01:56 06/02/21 02:01 06/02/21 02:04 Temperature 97.9 F Temperature Source Temporal Pulse Rate 54 L Respiratory Rate 26 H Respiratory Effort Short of Breath Respiratory Depth Shallow Respiratory Pattern Tachypnea Blood Pressure 206/68 H Blood Pressure Mean 114 Pulse Ox 82 87 94 Oxygen Delivery Method Room Air Nasal Cannula Nasal Cannula Oxygen Flow Rate (L/min) 3 4 4 06/02/21 02:11 06/02/21 03:02 Temperature 97.9 F 97.9 F Temperature Source Temporal Temporal Pulse Rate 54 L 52 L Respiratory Rate 26 H 16 Respiratory Effort Respiratory Depth Respiratory Pattern Blood Pressure 206/68 H 204/91 H Blood Pressure Mean 114 128 Pulse Ox 94 96 Oxygen Delivery Method Nasal Cannula Nasal Cannula Oxygen Flow Rate (L/min) 4 4 Weight Weight: 234 lb 2.095 oz Body Mass Index (BMI) 35.6 Physical Exam Narrative Physical Examination: General: Awake, alert, oriented x 3 and cooperative, seated upright in the ED bed, fatigued appearing. Skin: Normal color, normal turgor, no icterus, no cyanosis. HEENT: AT/NC, EOMI, PERRLA, moderately dry MM, no carotid bruits or JVD noted. Lungs: Diffusely diminished, greater bases, mildly increased respiratory rate, notes feeling improved since initial ED presentation, currently extremely diminished and not marked inspiratory expiratory wheezing but was markedly s evere upon initial ED presentation per discussion with physician, no obvious rales or rhonchi. Harsh coughing elicited with requested deep inspiratory effort on exam. Heart: Bradycardic with regular rhythm; no gallop, rub audible. Abdomen: Soft, obese, NTTP, ND, distant normal bowel sounds, no obvious HSM. Extremities: No cyanosis, clubbing, or edema. Neurological: Patient awake, alert, oriented as noted, cognitive function intact; pupils equally reactive to light and accommodation, cranial nerves II- XII grossly normal, moving all 4 extremities, no focal deficits, strength severely global decrease secondary to acute presentation. Psychiatric: Affect appears fatigued, no acute evidence of depressive or anxiety feelings. Results Lab / Micro Data Result Diagrams: 06/02/21 02:05 06/02/21 02:05 Labs: Laboratory Results - last 24 hr 06/02/21 02:05: WBC 8.3, RBC 3.85 L, Hgb 11.7 L, Hct 34.6 L, MCV 89.9, MCH 30.4, MCHC 33.8, RDW Std Deviation 49.1 H, RDW Coeff of Anthony 15.0 H, Plt Count 230, MPV 8.9, Immature Gran % (Auto) 0.700, Neut % (Auto) 72.5 H, Lymph % (Auto) 20.2, [place] % (Auto) 4.9, Eos % (Auto) 1.3, Baso % (Auto) 0.4, Absolute Neuts (auto) 6.0, Absolute Lymphs (auto) 1.68, Nucleated RBC % 0 06/02/21 02:05: Sodium 131 L, Potassium 3.4 L, Chloride 96 L, Carbon Dioxide 28.0, Anion Gap 7, BUN 12, Creatinine 1.09, Estim Creat Clear Calc 61.88, Est GFR (MDRD) Af Amer 86, Est GFR (MDRD) Non-Af 71, BUN/Creatinine Ratio 11.0, Glucose 135 H, Calcium 9.5, Magnesium 1.9, Troponin I High Sens 13 06/02/21 02:05: B-Natriuretic Peptide 233.2 H Micro: Microbiology 06/02/21 02:07 Nasal Secretion SARS-CoV-2 Antigen (Rapid) - Final Radiology Impression Chest X-Ray 06/02/21 02:40 IMPRESSION: Interstitial pulmonary edema versus diffuse interstitial pneumonitis . Electronically Signed: Diann Connell MD at 3:10 EST , Service support , Assessment & Plan Assessment/Plan (1) COPD with acute exacerbation: PLAN: The patient is a 71 y/o M w/ PMHx: Chronic anemia/Fe Deficiency, PAF, CAD s/p PCI, Obesity, Chronic COPD with Chronic Hypoxic Respiratory Failure (2L NC day and 3L NC), Former tobacco use, Hx EtOH Abuse, HTN, HLD, ELISHA, Diabetes mellitus type II who presents to the [facility] ED on 06/02/21 with history of unfortunately his and his [id number] with onset of Covid type symptoms with a positive Covid test with onset himself Covid type symptoms x2 days with mild congestion, fatigue, malaise, cough and significantly worsening dyspnea as well as pleuritic chest discomfort prompting ED evaluation. 1. Acute Hypoxic Respiratory Failure secondary to Suspected Acute Viral Syndrome, Possible Acute COVID-19 with concurrent Acute on Chronic COPD Exacerbation: Will admit to the [facility] on telemetry, maintain on COVID precautions pending COVID PCR, will maintain on oxygen with wean as tolerated to home chronic 2L NC, PRN albuterol, ATC duoneb therapies, HOB, IS parameters w/ pending sputum cultures, respiratory viral panel and urine antigens, will obtain D-dimer, procalcitonin, CRP, CPK, Ferritin, LDH, trop and BNP, continue supportive care including q 2 hour turning including prone given no prone bed availability and judicious hydration, closely monitor for worsening status for ARDS and multiorgan failure, if COVID PCR negative will transition to solumedrol 40 mg IV q 8 hours otherwise if positive will continue IV decadron x 10 doses and if COVID positive given presentation timeline would also initiate IV remdesivir but defer to discretion of Infectious disease. If respiratory status worsens and patient requires airvo or BIPAP transition will initiate barcitinib regimen additionally with ID involvement if COVID positive. Will continue patient home Roflumilast and Singulair regimen. 2. Hyponatremia, mild: Admission sodium 131, chloride 96, likely mild hypovolemia, will judiciously hydrate, repeat CMP in a.m. 3. Hypokalemia: Admission K+ 3.4, magnesium level 1.9, supplementation given, repeat level in AM. 4. PAF: We will continue patient home apixaban and metoprolol regimen. 5. CAD: Status post PCI, will continue patient aspirin, apixaban, atorvastatin, metoprolol, valsartan regimen. 6. Diabetes mellitus type II: Hold oral home regimen, continue home insulin regimen, ADA diet, accu checks w/ ISS. 7. Hypertension: Continue home regimen including valsartan, torsemide, nife dipine, metoprolol with hold parameters as needed, PRN hydralazine. 8. Hyperlipidemia: We will continue patient home statin therapy. 9. BPH: We will continue patient on Flomax regimen. 10. Chronic anemia/iron deficiency anemia: Admission hemoglobin 11.7, baseline appears more recently primarily 10-11, stable, will continue iron supplementation and trending. 11. Former tobacco use: Encourage continued tobacco cessation. 12. Former alcohol abuse: Encouraged continued sobriety. 13. Obesity: Weight loss and lifestyle changes encouraged. 14. GERD: We will continue patient home PPI. 15. ELISHA: We will initiate BiPAP nightly. 16. DVT prophylaxis: SCDs, continue patient home apixaban regimen. 17. CODE status: Patient TORSTEN is his he notes and living will is currently in place. Discussed CODE status at length including difference between FULL code, DNR-CCA and DNR-CC status. Following discussions about the differences in these status, requested Full Code status. Amenable to shaving his yepez if necessary to improve BIPAP if needed. Amenable to airvo and continuous BIPAP if needed. Advanced Care Planning Face to Face Time: 16 minutes. Charges/Coding Visit Charges Inpatient E&M: 82400 Init Hosp L3 Procedures Hospitalists Procedures: 06810 Advncd Care Plan 30 Min
--- NOTE | 2021-06-02 03:49 | CT_ITS ---
STUDY: CTA CHEST REASON FOR EXAM: Male, 71 years old. Hypoxia RADIATION DOSAGE (If Supplied By Facility): CTDIvol = ( 17.14 ) mGy, DLP = ( 552.45 ) mGycm TECHNIQUE: The examination was performed with the intravenous administration of IV 100mL Isovue-370. Post-processing of the angiographic images was performed, with multiplanar reformation and 3D reconstruction. Individualized dose optimization techniques were used for this CT. COMPARISON: CT angiogram chest July 25, 2018 FINDINGS: Normal enhancement of the main pulmonary artery and right and left pulmonary arteries. Normal enhancement of the bilateral peripheral pulmonary arteries. There is no demonstrated pulmonary embolism. There is atherosclerotic calcification of the aortic arch with tortuosity. There is calcification of the aortic arch. There are coronary calcifications. There is a visualized right coronary artery stent. There is a trace pericardial effusion. There are mildly enlarged lymph nodes in the subcarinal region measuring 2.6 cm similar to the prior study. There is a AP window lymph node measuring 1.6 cm. Normal hilar regions. Normal visualized trachea and bronchi. There is a pattern of emphysematous change throughout the lungs. There is thickening of the right greater than left major fissures. Within the lung bases there is no septal thickening and subtle edema type groundglass opacity. There is minimal lower lobe atelectasis. Normal pleura. Normal chest wall structures. There are degenerative changes of thoracic spine. There is a well-circumscribed cyst in the right hepatic lobe stable since prior study. CT/CTA Chest W/WO Contrast IMPRESSION: No pulmonary embolism. Findings are most consistent with mild pulmonary edema and CHF superimposed underlying chronic lung disease. Coronary artery disease. Mild cardiac enlargement. Electronically Signed: Megan Sifuentes MD at 4:43 EST Tel , Service support ,
--- NOTE | 2021-06-02 04:05 | ED.RN ---
Updated on admission. states he has mild short term memory loss. She is COVID+ and will not be visiting but will send important items (cell phone and rn hospital) in the morning. She will send a home medication list as well.
[2021-06-02 04:08] LABS: D-Dimer Quantitative (DVT/PE) <= 0.27 FEU/ug/m (0.27-0.49)
[2021-06-02 04:18] LABS: International Normalized Ratio 1.1; Prothrombin Time (Protime)PT. 13.6 SECONDS (11.7-14.9)
[2021-06-02 04:19] LABS: Partial Thromboplast Time 41.7 Seconds (24.1-36.2)
--- NOTE | 2021-06-02 04:28 | PCS.PANDOC ---
PANDEMIC DOCUMENTATION INITIATED: Date: 06/02/2021 Time: 042
[2021-06-02 04:39] LABS: AST(SGOT) 15 U/L (15-37); Alanine Aminotransfer ALT/SGPT 30 U/L (16-61); Albumin, Serum 3.8 g/dL (3.2-5.0); Alkaline Phosphatase 95 U/L (45-117); Bilirubin, Direct 0.14 mg/dL (0.00-0.30); CRP < 2.90 mg/L (0.0-3.0); Ferritin 25 ng/mL (26-388); Globulin 3.5 g/dL (2.2-4.2); LDH 145 U/L (87-241); Protein, Total 7.3 g/dL (6.4-8.2)
[2021-06-02] MEDS: Potassium Chloride Oral Tablet 20 MEQ 40 MEQ PO (04:54)
--- NOTE | 2021-06-02 05:54 | ECHOD_ITS ---
Reason For Study: CHF Procedure This was a 2D Doppler, Color Flow transthoracic echocardiogram. Limited views were obtained. Exam performed portable in patient room. The exam was abbreviated due to the COVID 19 protocol. Left Ventricle Normal left ventricle. The estimated ejection fraction is 55-60 %. Right Ventricle Normal right ventricle. Normal systolic function. Atria Normal left atrium. Mitral Valve The mitral valve is structurally normal. No prolapse or stenosis seen. Tricuspid Valve Normal tricuspid valve. Aortic Valve Mild diffuse aortic valve calcification. Pulmonic Valve The pulmonic valve is not well visualized. Great Vessels Normal aortic root. Pericardium/Pleural No pericardial effusion. MMode/2D Measurements & Calculations LVIDd: 4.5 cm IVSd: 1.2 cm LVAd ap4: 34.2 cm2 LVIDs: 2.7 cm LVPWd: 1.1 cm LVLd ap4: 8.6 cm FS: 40.3 % EDV(MOD-sp4): 110.6 ml EDV(sp4-el): 114.8 ml LVAs ap4: 18.8 cm2 LVLs ap4: 7.2 cm ESV(MOD-sp4): 45.1 ml ESV(sp4-el): 41.7 ml EF(MOD-sp4): 59.2 % EF(sp4-el): 63.7 % LVAd ap2: 31.2 cm2 SV(MOD-sp4): 65.5 ml SV(MOD-sp2): 54.6 ml LVLd ap2: 8.8 cm EDV(MOD-sp2): 93.1 ml EDV(sp2-el): 93.8 ml LVAs ap2: 16.6 cm2 LVLs ap2: 6.0 cm ESV(MOD-sp2): 38.4 ml ESV(sp2-el): 38.5 ml EF(MOD-sp2): 58.7 % SV(sp4-el): 73.1 ml Doppler Measurements & Calculations TR max mau: 283.9 cm/sec TR max P.2 mmHg ECHO/Echo Complete Interpretation Summary The estimated ejection fraction is 55-60 %. Normal LV systolic function No change from prior Echo in 01/2021 Ordering Physician: Jade Veliz Referring Physician: IRMA MAYA Performed By: Theodora Borja, RDCS, RVT
[2021-06-02] MEDS: hydrALAZINE 20 MG/ML Vial 10 MG IV ×2 (06:04→14:41)
[2021-06-02] MEDS: Furosemide 40 MG/4 ML Vial IV ×2 (06:16→18:47)
[2021-06-02 08:34] LABS: Absolute Lymphocyte Count 0.49 X10^3/uL (0.83-4.51); Absolute Neutrophil Count 10.5 X10^3/uL (2.0-7.7); Basophil# 0.01 X10^3/uL; Basophil% 0.1 % (0-1); Hematocrit 34.1 % (40-54); Hemoglobin 11.8 g/dL (13.0-16.5); Lymphocyte # 0.49 X10^3/ul (0.83-4.51); Lymphocyte % 4.4 % (19-41); Mean Corp Hgb Conc 34.6 g/dL (32-36); Mean Corpuscular Hgb 30.3 pg (27.0-32.0); Mean Corpuscular Volume 87.4 fL (80-94); Mean Platelet Vol. 9.4 fl (6.2-12.0); Monocyte# 0.11 X10^3/uL; NRBC Flagged by Analyzer 0 % (0-5); Neutrophil # 10.48 X10^3/uL (2.7-7.7); Neutrophil % 93.8 % (47-70); POSITIVE DIFFERENTIAL YES; Platelet Count 232 K/mm3 (150-450); White Blood Count 11.2 K/mm3 (4.4-11.0)
[2021-06-02 08:37] LABS: Differential Indicated SCAN CRITERIA MET
[2021-06-02 08:40] LABS: Bedside Glucose 246 mg/dL (70-110)
[2021-06-02] MEDS: Insulin Lispro 100 UNIT/ML INSULN.PEN SC ×4 (08:42→22:10)
[2021-06-02] MEDS: Metoprolol Tartrate 50 MG Tablet PO ×2 (08:43→22:12)
[2021-06-02] MEDS: Ferrous Gluconate 324 MG Tablet PO (08:43)
[2021-06-02] MEDS: Tamsulosin HCl 0.4 MG Capsule PO (08:43)
[2021-06-02] MEDS: Losartan Potassium 100 MG Tablet PO (08:43)
[2021-06-02] MEDS: Pantoprazole Sodium 20 MG Tablet PO (08:44)
[2021-06-02] MEDS: Aspirin E.C. 81 MG Tablet PO (08:44)
[2021-06-02] MEDS: Montelukast 10 MG Tablet PO (08:44)
[2021-06-02] MEDS: NIFEdipine 90 MG Tablet PO (08:44)
[2021-06-02] MEDS: Gabapentin 100 MG Capsule 200 MG PO (08:44)
[2021-06-02] MEDS: APIXABAN 5 MG TABLET PO ×2 (08:45→22:12)
[2021-06-02 08:53] LABS: ALB/GLOB Ratio 1.2 RATIO (0.9-2.4); AST(SGOT) 14 U/L (15-37); Alanine Aminotransfer ALT/SGPT 29 U/L (16-61); Alkaline Phosphatase 100 U/L (45-117); Anion Gap 10 (5-15); BUN 12 mg/dL (7-18); BUN/Creat Ratio 10.4 RATIO (10-20); Calcium,Total 9.4 mg/dL (8.5-10.1); Chloride 98 mmol/L (98-107); Creatinine, Serum 1.15 mg/dL (0.70-1.30); EST Glomerular Filtration Rate 67 mL/min (>60); Est Glom Filt Rate - Afr Amer 81 mL/min (>60); Estimated Creatinine Clearance 80.35 ml/min; Globulin 3.4 g/dL (2.2-4.2); Glucose 241 mg/dL (74-106); Potassium 3.9 mmol/L (3.5-5.1); Protein, Total 7.4 g/dL (6.4-8.2); Sodium Level 132 mmol/L (136-145)
[2021-06-02 09:01] LABS: Probe Check PASS; Specimen Processing Control PASS
[2021-06-02 11:35] LABS: Bedside Glucose 334 mg/dL (70-110)
--- NOTE | 2021-06-02 12:13 | CASEMGMT ---
TORRIE MILLIGAN assessment: Initial transition planning/care coordination assessment. TORRIE MILLIGAN introduced self and role at [facility], pt voices understanding and consents to assessment. Pt is currently on 4L nc and is supposed to wear 2L continuous at home. Pt is A/Ox4 and answers all questions appropriately. Pt states is vaccinated. Pt states has COVID and is doing ok at home. Pt states no concerns getting resources once home. Care providers, pharmacy, and demographics verified. Presentation: Increased SOB, with COVID at home-hx COPD Admitting dx: Resp failure, COPD exac PCP: Lindsay VALENCIA Specialists: Daysi, puljaguar; Mary Ann,cardio Pref[place] [facility] [place] Pres[place] Benefit: [facility] Living Will/HPOA: Pt has LW/HPOA and is aware that they are on file at [facility]. Pt's , Aviva Levy, is HPOA. LNOK: Aviva Levy, Living Arrangements: Pt lives with in 1 story home and states no concerns at home. Pt is independent with ADL's. Transportation: Pt drives self and states no transportation concerns. DME/HHC: Pt has the following DME: cane, WW, pulse ox, cpap and 2L [facility]. Pt states no need for any further DME. Pt states no hx of HHC or SNF. Pt states no concerns with going home at time of discharge. Pt is retired. Pt states does not smoke cigarettes or drink ETOH. Pt voices no further concerns/needs. CM to follow for increased home oxygen need and any further discharge planning/needs. Advised pt to ask for CM if any further questions/concerns/needs arise, voices understanding. Pt Goal: Home Plan[place] TORRIE MILLIGAN
[2021-06-02] MEDS: Ipratropium/Albuterol Sulfate 3 ML AMPUL.NEB INHALATION ×2 (13:26→20:18)
[2021-06-02] MEDS: 0.9% Saline Lock 10 ML Syringe IV ×3 (14:42→22:11)
--- NOTE | 2021-06-02 15:02 | PN.HOSP_ITS ---
Subjective Subjective Patient seen and examined. He was admitted with a complaint of cough and shortness of breath as well as wheezing. His whole family was Covid positive. He had had Covid type symptoms for 2 days. His initial PCR and antigen test were negative and also that his symptoms may be explained by elevated BNP and COPD exacerbation. However his repeat test was positive for Covid. Patient had no acute complaints today. Her shortness of breath had improved. He still wheezing a bit. He is on his baseline 3 L of oxygen. Review of systems otherwise negative. He remains on 3 L of oxygen. He has otherwise remained hemodynamically stable. Objective Data Objective Data Vital Signs: Vital Signs Temp Pulse Resp BP Pulse Ox 98.6 F 62 20 H 166/74 H 95 06/02/21 14:40 06/02/21 14:41 06/02/21 14:40 06/02/21 14:40 06/02/21 14:40 Oxygen Flow Rate (L/min) 3 Oxygen Delivery Method Room Air Weight: 227 lb 11.2 oz Body Mass Index (BMI) 25.5 Intake & Output: Intake and Output for Last 24 Hours 05/31/21 06/01/21 06/02/21 23:59 23:59 23:59 Intake Total 350 / 350 Output Total 600 / 600 Balance -250 / -250 Lab / Micro Data Result Diagrams: 06/02/21 08:07 06/02/21 08:07 Labs: Laboratory Results - last 24 hr 06/02/21 02:05: WBC 8.3, RBC 3.85 L, Hgb 11.7 L, Hct 34.6 L, MCV 89.9, MCH 30.4, MCHC 33.8, RDW Std Deviation 49.1 H, RDW Coeff of Anthony 15.0 H, Plt Count 230, MPV 8.9, Immature Gran % (Auto) 0.700, Neut % (Auto) 72.5 H, Lymph % (Auto) 20.2, [place] % (Auto) 4.9, Eos % (Auto) 1.3, Baso % (Auto) 0.4, Absolute Neuts (auto) 6.0, Absolute Lymphs (auto) 1.68, Nucleated RBC % 0 06/02/21 02:05: Sodium 131 L, Potassium 3.4 L, Chloride 96 L, Carbon Dioxide 28.0, Anion Gap 7, BUN 12, Creatinine 1.09, Estim Creat Clear Calc 61.88, Est GFR (MDRD) Af Amer 86, Est GFR (MDRD) Non-Af 71, BUN/Creatinine Ratio 11.0, Glucose 135 H, Calcium 9.5, Magnesium 1.9, Troponin I High Sens 13 06/02/21 02:05: B-Natriuretic Peptide 233.2 H 06/02/21 02:05: D-Dimer Quant (PE/DVT) <= 0.27 06/02/21 02:05: Ferritin 25 L, Total Bilirubin 0.50, Direct Bilirubin 0.14, AST 15, ALT 30, Alkaline Phosphatase 95, Lactate Dehydrogenase 145, C-React Prot Ext Range < 2.90, Total Protein 7.3, Albumin 3.8, Globulin 3.5 06/02/21 02:05: Procalcitonin 0.10 H 06/02/21 02:05: PT 13.6, INR 1.1, APTT 41.7 H 06/02/21 03:00: COVID-19 (ANN) Positive 06/02/21 08:07: WBC 11.2 H, RBC 3.90 L, Hgb 11.8 L, Hct 34.1 L, MCV 87.4, MCH 30.3, MCHC 34.6, RDW Std Deviation 48.0 H, RDW Coeff of Anthony 15.0 H, Plt Count 232, MPV 9.4, Immature Gran % (Auto) 0.700, Neut % (Auto) 93.8 H, Lymph % (Auto) 4.4 L, [place] % (Auto) 1.0, Eos % (Auto) 0.0, Baso % (Auto) 0.1, Absolute Neuts (auto) 10.5 H, Absolute Lymphs (auto) 0.49 L, Nucleated RBC % 0 06/02/21 08:07: Sodium 132 L, Potassium 3.9, Chloride 98, Carbon Dioxide 24.0, Anion Gap 10, BUN 12, Creatinine 1.15, Estim Creat Clear Calc 80.35, Est GFR (MDRD) Af Amer 81, Est GFR (MDRD) Non-Af 67, BUN/Creatinine Ratio 10.4, Glucose 241 H, Calcium 9.4, Total Bilirubin 0.70, AST 14 L, ALT 29, Alkaline Phosphatase 100, Total Protein 7.4, Albumin 4.0, Globulin 3.4, Albumin/Globulin Ratio 1.2 06/02/21 08:19: POC Glucose 246 H 06/02/21 11:18: POC Glucose 334 H Micro: Microbiology 06/02/21 03:00 Mucosa - Nasopharyngeal Respiratory Panel (PCR) - Final 06/02/21 04:45 Urine, Clean Catch Legionella Antigen - Final 06/02/21 04:45 Urine, Clean Catch Streptococcus pneumoniae Antigen (M - Final 06/02/21 02:07 Nasal Secretion SARS-CoV-2 Antigen (Rapid) - Final Radiography Diagnostic Testing: Radiology Impression Chest X-Ray 06/02/21 02:40 IMPRESSION: Interstitial pulmonary edema versus diffuse interstitial pneumonitis . Electronically Signed: Diann Connell MD at 3:10 EST , Service support , Chest CTA 06/02/21 03:49 IMPRESSION: No pulmonary embolism. Findings are most consistent with mild pulmonary edema and CHF superimposed underlying chronic lung disease. Coronary artery disease. Mild cardiac enlargement. Electronically Signed: Megan Sifuentes MD at 4:43 EST Tel , Service support , Physical Exam Const alert, oriented x3 and no apparent distress Exam Limitations: no limitations Nutritional Appearance: obese HEENT head/scalp atraumatic and moist oral mucous membranes Head and Scalp: normocephalic Eyes PERRL, EOMs intact bilaterally and conjunctivae normal Neck no lymphadenopathy Resp Resp Narrative: diminished breath sounds bibasally, no wheezes or crackles. On 3L of oxygen Cardio regular rate, regular rhythm, S1 normal heart sound, S2 normal heart sound and no murmurs GI normal to inspection, nondistended, normoactive bowel sounds, soft to palpation, non-tender and non-distended Extremity normal to inspection, full ROM and no clubbing, cyanosis or edema Peripheral Pulses: Yes pulses 2+ throughout Skin no rashes or lesions noted Neuro oriented x3, CN's II-XII intact bilaterally and moves all extremities Sensorium / Orientation: awake and alert Psych affect normal Assessment & Plan Assessment/Plan (1) Respiratory failure: (2) COVID: (3) Acute respiratory failure with hypoxia: PLAN: #Acute hypoxic respiratory failure due to COVID 19 pneumonia * on remdesivir and decadron * initial PCR and antigen tests were negative, but repeat PCR test was positive * Titrate oxygen to maintain saturation above 90%. * Breathing treatments of bronchodilators. * Continue Roflumilast and Singulair * Diurese with IV Lasix as BNP was also elevated. * #Acute on chronic heart failure with preserved EF: * Being diuresed with IV Lasix. * Monitor intake and output. Fluid restriction 1500 cc daily. #Hyponatremia: Sodium is 132. He does have chronic hyponatremia. Will monitor. #Hypokalemia: Resolved. #Paroxysmal A. fib: On metoprolol. Also on Eliquis. #CAD s/p PCI: On aspirin and statin, metoprolol and valsartan. #Type 2 diabetes mellitus: On insulin Lantus. Insulin sliding scale. Checks AC at bedtime. #Hypertension: On valsartan and nifedipine as well as metoprolol. On torsemide. #Hyperlipidemia: On statin #BPH: On Flomax #ELISHA: On CPAP nightly #GERD: On PPI DVT prophylaxis: On Eliquis Charges/Coding Visit Charges Inpatient E&M: 36534 Subs Hosp L3
--- NOTE | 2021-06-02 15:13 | EKG12_ITS ---
Test Reason : ARRYTH Blood Pressure : / mmHG Vent. Rate : 058 BPM Atrial Rate : 058 BPM P-R Int : 176 ms QRS Dur : 096 ms QT Int : 466 ms P-R-T Axes : 026 057 057 degrees QTc Int : 457 ms Sinus bradycardia Otherwise normal ECG When compared with ECG of 02-JUN-2021 02:17, MANUAL COMPARISON REQUIRED, DATA IS UNCONFIRMED Confirmed by JAYY SIMMS, ALONZO ([id number]), electronic news gathering editor RENÉ SANDOVAL ([id number]) on 06/05/2021 1:58:25 PM Referred By: CLEMENT Confirmed By:ALONZO HOPE MD
[2021-06-02 17:01] LABS: Bedside Glucose 286 mg/dL (70-110)
[2021-06-02] MEDS: Atorvastatin Calcium 40 MG Tablet PO (22:12)
[2021-06-02] MEDS: Gabapentin 100 MG Capsule PO (22:13)
[2021-06-02 22:25] LABS: Bedside Glucose 335 mg/dL (70-110)
[2021-06-03] VITALS (16 sets, daily range): BP systolic 125–149; BP diastolic 59–65; PULSE 55–80; RESP 18–20; TEMP 36.6–36.7; O2SAT 95–99
[2021-06-03] MEDS: 0.9% Saline Lock 10 ML Syringe IV ×5 (06:21→22:31)
[2021-06-03] MEDS: Insulin Lispro 100 UNIT/ML INSULN.PEN SC ×4 (06:24→22:35)
[2021-06-03 06:36] LABS: Bedside Glucose 298 mg/dL (70-110)
[2021-06-03 06:57] LABS: Absolute Lymphocyte Count 0.75 X10^3/uL (0.83-4.51); Absolute Neutrophil Count 10.8 X10^3/uL (2.0-7.7); Basophil# 0.01 X10^3/uL; Basophil% 0.1 % (0-1); Hematocrit 36.3 % (40-54); Hemoglobin 12.3 g/dL (13.0-16.5); Lymphocyte # 0.75 X10^3/ul (0.83-4.51); Lymphocyte % 6.2 % (19-41); Mean Corp Hgb Conc 33.9 g/dL (32-36); Mean Corpuscular Hgb 30.1 pg (27.0-32.0); Mean Corpuscular Volume 88.8 fL (80-94); Mean Platelet Vol. 9.1 fl (6.2-12.0); Monocyte# 0.38 X10^3/uL; Monocyte% 3.1 % (0-10); NRBC Flagged by Analyzer 0 % (0-5); Neutrophil # 10.83 X10^3/uL (2.7-7.7); Neutrophil % 89.6 % (47-70); Platelet Count 275 K/mm3 (150-450); RBC Distribution Width CV 15.6 % (11.6-14.6); RBC Distribution Width SD 50.6 fl (35.1-43.9); Red Blood Count 4.09 M/mm3 (4.6-6.2); White Blood Count 12.1 K/mm3 (4.4-11.0)
[2021-06-03] MEDS: Ipratropium/Albuterol Sulfate 3 ML AMPUL.NEB INHALATION ×3 (07:01→19:39)
[2021-06-03 07:11] LABS: Anion Gap 11 (5-15); BUN 21 mg/dL (7-18); BUN/Creat Ratio 15.8 RATIO (10-20); Calcium,Total 9.6 mg/dL (8.5-10.1); Chloride 96 mmol/L (98-107); Creatinine, Serum 1.33 mg/dL (0.70-1.30); EST Glomerular Filtration Rate 57 mL/min (>60); Est Glom Filt Rate - Afr Amer 69 mL/min (>60); Estimated Creatinine Clearance 49.01 ml/min; Glucose 268 mg/dL (74-106); Potassium 3.9 mmol/L (3.5-5.1); Sodium Level 131 mmol/L (136-145)
[2021-06-03] MEDS: APIXABAN 5 MG TABLET PO ×2 (09:27→22:31)
[2021-06-03] MEDS: Tamsulosin HCl 0.4 MG Capsule PO (09:27)
[2021-06-03] MEDS: Aspirin E.C. 81 MG Tablet PO (09:27)
[2021-06-03] MEDS: Losartan Potassium 100 MG Tablet PO (09:27)
[2021-06-03] MEDS: Gabapentin 100 MG Capsule 200 MG PO (09:33)
[2021-06-03] MEDS: NIFEdipine 90 MG Tablet PO (09:33)
[2021-06-03] MEDS: Montelukast 10 MG Tablet PO (09:33)
[2021-06-03] MEDS: Pantoprazole Sodium 20 MG Tablet PO (09:33)
[2021-06-03] MEDS: Metoprolol Tartrate 50 MG Tablet PO ×2 (09:34→22:30)
[2021-06-03] MEDS: Ferrous Gluconate 324 MG Tablet PO (09:36)
[2021-06-03] MEDS: Furosemide 40 MG/4 ML Vial IV ×2 (09:39→18:06)
[2021-06-03 12:56] LABS: Bedside Glucose 275 mg/dL (70-110)
--- NOTE | 2021-06-03 14:09 | DS.PCM_ITS ---
Providers Date of Admission: 06/02/21 Primary Care Physician: Dr. Umesh Maya MD Reason For Visit: RESP FAILURE,SUSPECTED COVID PNA,COPD EXACERBATION Diagnosis Discharge Diagnosis (1) Respiratory failure: Status: Acute Code(s): J96.90 - Respiratory failure, unspecified, unspecified whether with hypoxia or hypercapnia (2) COVID: Status: Acute Code(s): U07.1 - COVID-19 (3) Acute respiratory failure with hypoxia: Status: Acute Code(s): J96.01 - Acute respiratory failure with hypoxia Medications at Discharge Home Medications albuterol sulfate 2 puff INHALATION Q4H PRN PRN 06/24/15 atorvastatin 40 mg PO QHS 06/24/15 metformin 1,000 mg PO BIDCM 06/24/15 valsartan 320 mg PO DAILY 06/24/15 cholecalciferol (vitamin D3) 50 mcg (2,000 unit) tablet 2,000 unit PO DAILY 04/14/18 glipizide 5 mg tablet 5 mg PO BID tablet 04/14/18 nifedipine 90 mg tablet,extended release 90 mg PO DAILY 04/14/18 omega-3 fatty acids 1,000 mg capsule 2,000 mg PO BID cap 04/14/18 roflumilast 500 mcg tablet 500 mcg PO DAILY 04/14/18 tamsulosin 0.4 mg capsule 0.4 mg PO DAILY 04/14/18 vitamin B complex 1 tablet PO MOWEFR tablet 04/14/18 pantoprazole 20 mg PO DAILY #30 tablet 07/28/18 albuterol sulfate 2.5 mg INHALATION 4X/DAY PRN ml 10/15/18 fluticasone propionate 50 mcg/actuation nasal spray,suspension 1 spray INTRANASAL PRN PRN 10/15/18 montelukast 10 mg tablet 10 mg PO DAILY 10/15/18 torsemide 10 mg tablet 5 mg PO DAILY tablet 10/15/18 aspirin 81 mg tablet,delayed release 81 mg PO DAILY 04/22/19 metoprolol tartrate 50 mg tablet 50 mg PO BID #180 tablet 09/13/19 ferrous gluconate 324 mg (37.5 mg iron) tablet 324 mg PO DAILY 10/25/20 gabapentin 100 mg capsule 100 mg PO .COMPLEX cap 10/25/20 magnesium oxide 400 mg PO DAILY 10/25/20 apixaban 5 mg PO BID #180 tab 02/06/21 mometasone 200 mcg/actuation HFA aerosol inhaler 2 puff INHALATION BID 05/08/21 tiotropium 2.5 mcg-olodaterol 2.5 mcg/actuation mist for inhalation 2 puff INHALATION Q24H 05/08/21 Hospital Course Operations None Procedures None Summary of Care Provided Minutes Spent on Discharge: 40 Weight / BMI Weight Weight: 229 lb 2 oz Body Mass Index (BMI) 25.5 ABG / Lab / Microbiology Data Result Diagrams: 06/03/21 06:45 06/03/21 06:45 Laboratory: Laboratory Results - last 24 hr 06/02/21 16:46: POC Glucose 286 H 06/02/21 22:07: POC Glucose 335 H 06/03/21 06:19: POC Glucose 298 H 06/03/21 06:45: WBC 12.1 H, RBC 4.09 L, Hgb 12.3 L, Hct 36.3 L, MCV 88.8, MCH 30.1, MCHC 33.9, RDW Std Deviation 50.6 H, RDW Coeff of Anthony 15.6 H, Plt Count 275, MPV 9.1, Immature Gran % (Auto) 1.000 H, Neut % (Auto) 89.6 H, Lymph % (Auto) 6.2 L, [place] % (Auto) 3.1, Eos % (Auto) 0.0, Baso % (Auto) 0.1, Absolute Neuts (auto) 10.8 H, Absolute Lymphs (auto) 0.75 L, Nucleated RBC % 0 06/03/21 06:45: Sodium 131 L, Potassium 3.9, Chloride 96 L, Carbon Dioxide 24.0, Anion Gap 11, BUN 21 H, Creatinine 1.33 H, Estim Creat Clear Calc 49.01, Est GFR (MDRD) Af Amer 69, Est GFR (MDRD) Non-Af 57 L, BUN/Creatinine Ratio 15.8, Gluc ose 268 H, Calcium 9.6 06/03/21 12:25: POC Glucose 275 H Microbiology: Microbiology 06/02/21 03:00 Mucosa - Nasopharyngeal Respiratory Panel (PCR) - Final 06/02/21 04:45 Urine, Clean Catch Legionella Antigen - Final 06/02/21 04:45 Urine, Clean Catch Streptococcus pneumoniae Antigen (M - Final 06/02/21 02:07 Nasal Secretion SARS-CoV-2 Antigen (Rapid) - Final Radiography Diagnostic Testing: Radiology Impression Echocardiogram 06/02/21 05:54 Interpretation Summary The estimated ejection fraction is 55-60 %. Normal LV systolic function No change from prior Echo in 01/2021 Ordering Physician: Jade Veliz Referring Physician: IRMA MAYA Performed By: Theodora Borja RDCS, RVT Discharge Plan Admission Admit Date/Time: 06/02/21 03:34 Attending Provider: Yani Latif Primary Care Provider: Umesh Maya Discharge Orders/Prescriptions Prescriptions: No Action Daliresp 500 mcg tablet 500 mcg PO DAILY RF: 0 omega-3 fatty acids [Fish Oil Concentrate] 1,000 mg capsule 2,000 mg PO BID RF: 0 glipizide 5 mg tablet 5 mg PO BID RF: 0 nifedipine 90 mg tablet extended release 90 mg PO DAILY RF: 0 tamsulosin 0.4 mg capsule 0.4 mg PO DAILY RF: 0 vitamin B complex [B Complex-Vitamin B12] tablet 1 tablet PO MOWEFR RF: 0 cholecalciferol (vitamin D3) 2,000 unit tablet 2,000 unit tablet 2,000 unit PO DAILY RF: 0 fluticasone propionate [Allergy Relief (fluticasone)] 50 mcg/actuation spray,suspension 1 spray INTRANASAL PRN PRN (Reason: allergies) RF: 0 torsemide 10 mg tablet 5 mg PO DAILY RF: 0 montelukast 10 mg tablet 10 mg PO DAILY RF: 0 albuterol sulfate 2.5 mg /3 mL (0.083 %) solution for nebulization 2.5 mg INHALATION 4X/DAY PRN (Reason: Sob &/Or Wheezing) RF: 0 aspirin [Adult Aspirin Regimen] 81 mg tablet,delayed release (DR/EC) 81 mg PO DAILY RF: 0 ferrous gluconate 324 mg (37.5 mg iron) tablet 324 mg PO DAILY RF: 0 magnesium oxide 400 mg magnesium tablet 400 mg PO DAILY RF: 0 Asmanex HFA 200 mcg/actuation HFA aerosol inhaler 2 puff inhalation BID RF: 0 Stiolto Respimat 2.5-2.5 mcg/actuation mist 2 puff inhalation Q24H RF: 0 atorvastatin 40 MG tablet 40 mg PO QHS RF: 0 metformin 1,000 MG tablet 1,000 mg PO BIDCM RF: 0 valsartan 320 MG tablet 320 mg PO DAILY RF: 0 albuterol sulfate 1 PUFF inhaler 2 puff INHALATION Q4H PRN PRN (Reason: Shortness Of Breath) RF: 0 pantoprazole 20 MG tablet 20 mg PO DAILY Qty: 30 RF: 0 gabapentin 100 mg capsule 100 mg PO .COMPLEX RF: 0 apixaban 5 mg tablet 5 mg PO BID Qty: 180 RF: 4 metoprolol tartrate 50 mg tablet 50 mg PO BID Qty: 180 RF: 3 Referrals / Follow Up: Umesh Maya MD [Primary Care Provider] -
--- NOTE | 2021-06-03 14:18 | PN.HOSP_ITS ---
Subjective Subjective Patient seen and examined. He said he did feel better today. He had no active complaints he felt his breathing was getting better. Review of systems otherwise negative. He has been weaned down to room air at time of discharge the patient had not yet ambulated. He is mildly bradycardic but otherwise stable. Objective Data Objective Data Vital Signs: Vital Signs Temp Pulse Resp BP Pulse Ox 98 F 55 L 20 H 130/65 H 96 06/03/21 12:00 06/03/21 12:00 06/03/21 12:00 06/03/21 12:00 06/03/21 12:00 Oxygen Flow Rate (L/min) [At 0 REST on Room Air] Oxygen Flow Rate (L/min) 3 Oxygen Delivery Method Room Air Weight: 229 lb 2 oz Body Mass Index (BMI) 25.5 Intake & Output: Intake and Output for Last 24 Hours 06/01/21 06/02/21 06/03/21 23:59 23:59 23:59 Intake Total 350 / 350 400 / 400 Output Total 600 / 600 300 / 300 Balance -250 / -250 100 / 100 Lab / Micro Data Result Diagrams: 06/03/21 06:45 06/03/21 06:45 Labs: Laboratory Results - last 24 hr 06/02/21 16:46: POC Glucose 286 H 06/02/21 22:07: POC Glucose 335 H 06/03/21 06:19: POC Glucose 298 H 06/03/21 06:45: WBC 12.1 H, RBC 4.09 L, Hgb 12.3 L, Hct 36.3 L, MCV 88.8, MCH 30.1, MCHC 33.9, RDW Std Deviation 50.6 H, RDW Coeff of Anthony 15.6 H, Plt Count 275, MPV 9.1, Immature Gran % (Auto) 1.000 H, Neut % (Auto) 89.6 H, Lymph % (Auto) 6.2 L, [place] % (Auto) 3.1, Eos % (Auto) 0.0, Baso % (Auto) 0.1, Absolute Neuts (auto) 10.8 H, Absolute Lymphs (auto) 0.75 L, Nucleated RBC % 0 06/03/21 06:45: Sodium 131 L, Potassium 3.9, Chloride 96 L, Carbon Dioxide 24.0, Anion Gap 11, BUN 21 H, Creatinine 1.33 H, Estim Creat Clear Calc 49.01, Est GFR (MDRD) Af Amer 69, Est GFR (MDRD) Non-Af 57 L, BUN/Creatinine Ratio 15.8, Glucose 268 H, Calcium 9.6 06/03/21 12:25: POC Glucose 275 H Micro: Microbiology 06/02/21 03:00 Mucosa - Nasopharyngeal Respiratory Panel (PCR) - Final 06/02/21 04:45 Urine, Clean Catch Legionella Antigen - Final 06/02/21 04:45 Urine, Clean Catch Streptococcus pneumoniae Antigen (M - Final 06/02/21 02:07 Nasal Secretion SARS-CoV-2 Antigen (Rapid) - Final Radiography Diagnostic Testing: Radiology Impression Echocardiogram 06/02/21 05:54 Interpretation Summary The estimated ejection fraction is 55-60 %. Normal LV systolic function No change from prior Echo in 01/2021 Ordering Physician: Jade Veliz Referring Physician: IRMA MAYA Performed By: Theodora Borja, RDCS, RVT Physical Exam Const alert, oriented x3 and no apparent distress Exam Limitations: no limitations Nutritional Appearance: obese HEENT head/scalp atraumatic and moist oral mucous membranes Head and Scalp: normocephalic Eyes PERRL, EOMs intact bilaterally and conjunctivae normal Neck no lymphadenopathy Resp Resp Narrative: diminished breath sounds bibasally,mild wheezing, no crackles. On room air at rest Cardio regular rate, regular rhythm, S1 normal heart sound, S2 normal heart sound and no murmurs GI normal to inspection, nondistended, normoactive bowel sounds, soft to palpation, non-tender and non-distended Extremity normal to inspection, full ROM and no clubbing, cyanosis or edema Peripheral Pulses: Yes pulses 2+ throughout Skin no rashes or lesions noted Neuro oriented x3, CN's II-XII intact bilaterally and moves all extremities Sensorium / Orientation: awake and alert Psych affect normal Assessment & Plan Assessment/Plan (1) Respiratory failure: (2) COVID: (3) Acute respiratory failure with hypoxia: PLAN: #Acute hypoxic respiratory failure due to COVID 19 pneumonia * on remdesivir and decadron * initial PCR and antigen tests were negative, but repeat PCR test was positive * Now on room air at rest. * I think patient will benefit from diuresis for 1 more day as he just got onto room air. * Continue Roflumilast and Singulair. * Continue remdesivir and Decadron. * * #Acute on chronic heart failure with preserved EF: * Being diuresed with IV Lasix. * Monitor intake and output. Fluid restriction 1500 cc daily. * 2D echo showed EF of 55 to 60% with normal left ventricular size and function #Hyponatremia: Sodium is 131. He does have chronic hyponatremia. Will monitor. #Hypokalemia: Resolved. #Paroxysmal A. fib: On metoprolol. Also on Eliquis. #CAD s/p PCI: On aspirin and statin, metoprolol and valsartan. #Type 2 diabetes mellitus: On insulin Lantus. Insulin sliding scale. Checks AC at bedtime. #Hypertension: On valsartan and nifedipine as well as metoprolol. On torsemide. #Hyperlipidemia: On statin #BPH: On Flomax #ELISHA: On CPAP nightly #GERD: On PPI DVT prophylaxis: On Eliquis Disposition: * I think it is prudent to watch patient 1 more night in light of him having acute heart failure as well as COVID-19 infection. Anticipate patient can be discharged home over the next 24 hours. Charges/Coding Visit Charges Inpatient E&M: 62359 Subs Hosp L2
[2021-06-03 16:55] LABS: Bedside Glucose 299 mg/dL (70-110)
[2021-06-03] MEDS: Atorvastatin Calcium 40 MG Tablet PO (22:30)
[2021-06-03] MEDS: Gabapentin 100 MG Capsule PO (22:30)
[2021-06-03 22:46] LABS: Bedside Glucose 270 mg/dL (70-110)
[2021-06-04] VITALS (10 sets, daily range): BP systolic 143–158; BP diastolic 64–75; PULSE 53–80; RESP 16–18; TEMP 36.6–36.8; O2SAT 88–98
[2021-06-04] MEDS: Insulin Lispro 100 UNIT/ML INSULN.PEN SC ×2 (06:42→11:42)
[2021-06-04] MEDS: 0.9% Saline Lock 10 ML Syringe IV ×2 (06:45→09:32)
[2021-06-04 06:56] LABS: Bedside Glucose 270 mg/dL (70-110)
[2021-06-04] MEDS: Ipratropium/Albuterol Sulfate 3 ML AMPUL.NEB INHALATION (07:03)
[2021-06-04 07:05] LABS: Absolute Lymphocyte Count 0.63 X10^3/uL (0.83-4.51); Absolute Neutrophil Count 10.8 X10^3/uL (2.0-7.7); Basophil# 0.01 X10^3/uL; Basophil% 0.1 % (0-1); Eosinophil# 0.01 X10^3/uL; Eosinophils% 0.1 % (0-5); Hematocrit 32.6 % (40-54); Hemoglobin 10.8 g/dL (13.0-16.5); Lymphocyte # 0.63 X10^3/ul (0.83-4.51); Lymphocyte % 5.3 % (19-41); Mean Corp Hgb Conc 33.1 g/dL (32-36); Mean Corpuscular Volume 90.6 fL (80-94); Mean Platelet Vol. 9.3 fl (6.2-12.0); Monocyte# 0.46 X10^3/uL; Monocyte% 3.8 % (0-10); NRBC Flagged by Analyzer 0 % (0-5); Neutrophil # 10.75 X10^3/uL (2.7-7.7); Neutrophil % 89.6 % (47-70); Platelet Count 256 K/mm3 (150-450); RBC Distribution Width CV 15.9 % (11.6-14.6); RBC Distribution Width SD 52.2 fl (35.1-43.9)
[2021-06-04 07:34] LABS: Anion Gap 8 (5-15); BUN 25 mg/dL (7-18); BUN/Creat Ratio 23.8 RATIO (10-20); Calcium,Total 8.9 mg/dL (8.5-10.1); Chloride 97 mmol/L (98-107); Creatinine, Serum 1.05 mg/dL (0.70-1.30); EST Glomerular Filtration Rate 74 mL/min (>60); Est Glom Filt Rate - Afr Amer 90 mL/min (>60); Estimated Creatinine Clearance 62.08 ml/min; Glucose 265 mg/dL (74-106); Potassium 4.1 mmol/L (3.5-5.1); Sodium Level 132 mmol/L (136-145)
[2021-06-04] MEDS: Furosemide 40 MG/4 ML Vial IV (09:30)
[2021-06-04] MEDS: Gabapentin 100 MG Capsule 200 MG PO (09:30)
[2021-06-04] MEDS: APIXABAN 5 MG TABLET PO (09:30)
[2021-06-04] MEDS: Metoprolol Tartrate 50 MG Tablet PO (09:30)
[2021-06-04] MEDS: Ferrous Gluconate 324 MG Tablet PO (09:30)
[2021-06-04] MEDS: Aspirin E.C. 81 MG Tablet PO (09:30)
[2021-06-04] MEDS: NIFEdipine 90 MG Tablet PO (09:31)
[2021-06-04] MEDS: Pantoprazole Sodium 20 MG Tablet PO (09:31)
[2021-06-04] MEDS: Tamsulosin HCl 0.4 MG Capsule PO (09:31)
[2021-06-04] MEDS: Montelukast 10 MG Tablet PO (09:31)
[2021-06-04] MEDS: Losartan Potassium 100 MG Tablet PO (09:32)
[2021-06-04 11:50] LABS: Bedside Glucose 249 mg/dL (70-110)
--- NOTE | 2021-06-04 12:10 | DS.PCM_ITS ---
Providers Date of Admission: 06/02/21 Primary Care Physician: Dr. Umesh Orr MD Reason For Visit: RESP FAILURE,SUSPECTED COVID PNA,COPD EXACERBATION Diagnosis Discharge Diagnosis (1) Respiratory failure: Status: Acute Code(s): J96.90 - Respiratory failure, unspecified, unspecified whether with hypoxia or hypercapnia (2) COVID: Status: Acute Code(s): U07.1 - COVID-19 (3) Acute respiratory failure with hypoxia: Status: Acute Code(s): J96.01 - Acute respiratory failure with hypoxia Medications at Discharge Home Medications albuterol sulfate 2 puff INHALATION Q4H PRN PRN 06/24/15 atorvastatin 40 mg PO QHS 06/24/15 metformin 1,000 mg PO BIDCM 06/24/15 valsartan 320 mg PO DAILY 06/24/15 cholecalciferol (vitamin D3) 50 mcg (2,000 unit) tablet 2,000 unit PO DAILY 04/14/18 glipizide 5 mg tablet 5 mg PO BID tablet 04/14/18 nifedipine 90 mg tablet,extended release 90 mg PO DAILY 04/14/18 omega-3 fatty acids 1,000 mg capsule 2,000 mg PO BID cap 04/14/18 roflumilast 500 mcg tablet 500 mcg PO DAILY 04/14/18 tamsulosin 0.4 mg capsule 0.4 mg PO DAILY 04/14/18 vitamin B complex 1 tablet PO MOWEFR tablet 04/14/18 pantoprazole 20 mg PO DAILY #30 tablet 07/28/18 albuterol sulfate 2.5 mg INHALATION 4X/DAY PRN ml 10/15/18 fluticasone propionate 50 mcg/actuation nasal spray,suspension 1 spray INTRANASAL PRN PRN 10/15/18 montelukast 10 mg tablet 10 mg PO DAILY 10/15/18 torsemide 10 mg tablet 5 mg PO DAILY tablet 10/15/18 aspirin 81 mg tablet,delayed release 81 mg PO DAILY 04/22/19 metoprolol tartrate 50 mg tablet 50 mg PO BID #180 tablet 09/13/19 ferrous gluconate 324 mg (37.5 mg iron) tablet 324 mg PO DAILY 10/25/20 gabapentin 100 mg capsule 100 mg PO .COMPLEX cap 10/25/20 magnesium oxide 400 mg PO DAILY 10/25/20 apixaban 5 mg PO BID #180 tab 02/06/21 mometasone 200 mcg/actuation HFA aerosol inhaler 2 puff INHALATION BID 05/08/21 tiotropium 2.5 mcg-olodaterol 2.5 mcg/actuation mist for inhalation 2 puff INHALATION Q24H 05/08/21 dexamethasone [Decadron] 6 mg PO DAILY #8 tab 06/04/21 Hospital Course Operations None Procedures 2-D Echocardiogram Summary of Care Provided Minutes Spent on Discharge: 38 Hospital Course: Mr. Levy is a 71-year-old white male who presented to the emergency department on 06/02/2021 with coughing, dyspnea, wheezing, and knowing that his family members at home are Covid positive. Patient has multiple comorbidities including chronic respiratory failure which he requires 2 L nasal cannula during the day and 3 L nasal cannula at night who 2 days prior to presentation had symptoms of mild congestion, sore throat, fatigue, malaise, cough, and significantly worsening shortness of breath as well as pleuritic chest discomfort with diarrhea. He had completed vaccination with Moderna but unfortunately was not yet able to receive his booster. His family members at home who also tested positive had been vaccinated as well. His work-up in the emergency department was overall unimpressive and his chest x-ray showed interstitial pulmonary edema versus diffuse interstitial pneumonitis. His init ial rapid antigen was negative but his PCR was positive. In the emergency department he received Decadron and albuterol x1 dose. He was admitted to the medical floor and was continued on supplemental O2 as he is on at home as well as duo nebs, incentive spirometer and eventually steroids were initiated. It does not appear that the patient did receive remdesivir during his hospitalization but he was discharged to complete a course of Decadron for another 8 days. A D-dimer was assessed in the emergency department on admission and a CTA was therefore performed that showed no pulmonary emboli and mild pulmonary edema with CHF and superimposed underlying chronic lung disease. An echocardiogram was therefore performed and showed an EF of 55 to 60% with normal LV function and no change from his previous echo done in January 2021. It was felt that he may have a component of acute heart failure and he was given Lasix and seemingly improved with treatment of this as well. A viral respiratory PCR panel was performed and was negative. Strep pneumo and Legionella antigens were negative as well. He remained very stable on his oxygenation requiring actually no oxygen at rest and 2 L with exertion. He was discharged home on 06/04/2021 in stable condition. He was instructed to self quarantine until 06/20/2021,after which he is to follow-up with his primary care physician as well as his ventilation equipment tender, Dr. Tavarez. He was discharged home with a prescription for Decadron to complete his course and instructed to follow his pulse oximetry and be present to the emergency department if he worsens. Discharge diagnoses: Acute COVID-19 infection Chronic hypoxic respiratory failure Acute on chronic diastolic heart failure-resolved Hypokalemia-resolved Chronic hyponatremia Chronic normocytic anemia PAF CAD status post PCI DM-2 Hypertension Hyperlipidemia BPH ELISHA GERD Physical Exam Const alert, oriented x3 and no apparent distress Constitutional Narrative: Obese white male sitting up in the chair, currently on room air, appears comfortable, nontoxic, watching television General Appearance: cooperative, comfortable, well kempt and well developed Orientation / Consciousness: awake Exam Limitations: no limitations Nutritional Appearance: obese HEENT normocephalic, head/scalp atraumatic and moist oral mucous membranes HEENT Narrative: Dentition is fair, no thrush, Mallampati 3, mild hard of hearing Eyes PERRL, EOMs intact bilaterally and conjunctivae normal Eyes Narrative: No scleral icterus Neck no lymphadenopathy, supple and no JVD Neck Narrative: Trachea midline, no thyroid enlargement Resp normal respiratory effort, no retractions, no use of accessory muscles and clear to auscultation bilaterally Resp Narrative: Diffusely diminished but clear without adventitious sounds Auscultation: Negative for crackles, rales, rhonchi or wheezes Cardio regular rate, regular rhythm, S1 normal heart sound, S2 normal heart sound, no murmurs, no rub, no gallops, no clicks and no JVD GI normal to inspection, nondistended, normoactive bowel sounds, soft to palpation, non-tender and non-distended Extremity normal to inspection and no clubbing, cyanosis or edema Skin no rashes or lesions noted, no wounds, skin turgor normal and no jaundice Neuro oriented x3, CN's II-XII intact bilaterally and moves all extremities Sensorium / Orientation: awake and alert Speech: speech normal Psych affect normal Psych Narrative: Extremely pleasant Weight / BMI Weight Weight: 104.071 kg Body Mass Index (BMI) 25.5 ABG / Lab / Microbiology Data Result Diagrams: 06/04/21 06:55 06/04/21 06:55 Laboratory: Laboratory Results - last 24 hr 06/03/21 12:25: POC Glucose 275 H 06/03/21 16:42: POC Glucose 299 H 06/03/21 22:34: POC Glucose 270 H 06/04/21 06:39: POC Glucose 270 H 06/04/21 06:55: WBC 12.0 H, RBC 3.60 L, Hgb 10.8 L, Hct 32.6 L, MCV 90.6, MCH 30.0, MCHC 33.1, RDW Std Deviation 52.2 H, RDW Coeff of Anthony 15.9 H, Plt Count 256, MPV 9.3, Immature Gran % (Auto) 1.100 H, Neut % (Auto) 89.6 H, Lymph % (Auto) 5.3 L, [place] % (Auto) 3.8, Eos % (Auto) 0.1, Baso % (Auto) 0.1, Absolute Neuts (auto) 10.8 H, Absolute Lymphs (auto) 0.63 L, Nucleated RBC % 0 06/04/21 06:55: Sodium 132 L, Potassium 4.1, Chloride 97 L, Carbon Dioxide 27.0, Anion Gap 8, BUN 25 H, Creatinine 1.05, Estim Creat Clear Calc 62.08, Est GFR (MDRD) Af Amer 90, Est GFR (MDRD) Non-Af 74, BUN/Creatinine Ratio 23.8 H, Glucose 265 H, Calcium 8.9 06/04/21 11:39: POC Glucose 249 H Microbiology: Microbiology 06/02/21 03:00 Mucosa - Nasopharyngeal Respiratory Panel (PCR) - Final 06/02/21 04:45 Urine, Clean Catch Legionella Antigen - Final 06/02/21 04:45 Urine, Clean Catch Streptococcus pneumoniae Antigen (M - Final 06/02/21 02:07 Nasal Secretion SARS-CoV-2 Antigen (Rapid) - Final D/C Instructions Discharge Diet: Low fat / Low cholesterol and 1800 Calorie Control Diet Discharge Activity: Return to Normal Activity Return to work on: 06/21/21 Meaningful Use Info Meaningful Use Diagnoses (Choose all that apply): None applicable Discharge Plan Admission Admit Date/Time: 06/02/21 03:34 Primary Reason for Your Visit: Shortness of breath/COVID-19 Attending Provider: Donna Roberson Primary Care Provider: Umesh Orr Instructions Additional Instructions / Restrictions: 1. Please self quarantine until 06/20/2021 2. Wear baseline home supplemental oxygen at 3 L as prescribed prior to presentation 3. Recommend periodic pulse oximetry monitoring with representation if oxygen saturations drop below 90% on supplemental oxygen. 4. Recommend follow-up with pulmonology after you are out of quarantine 5. Recommend booster vaccination once out of quarantine 6. Your blood sugars will likely remain elevated until you complete your Decadron therapy.(Steroids) Discharge Orders/Prescriptions Prescriptions: New dexamethasone [Decadron] 6 mg tablet 6 mg PO DAILY Qty: 8 RF: 0 Continued Daliresp 500 mcg tablet 500 mcg PO DAILY RF: 0 omega-3 fatty acids [Fish Oil Concentrate] 1,000 mg capsule 2,000 mg PO BID RF: 0 glipizide 5 mg tablet 5 mg PO BID RF: 0 nifedipine 90 mg tablet extended release 90 mg PO DAILY RF: 0 tamsulosin 0.4 mg capsule 0.4 mg PO DAILY RF: 0 vitamin B complex [B Complex-Vitamin B12] tablet 1 tablet PO MOWEFR RF: 0 cholecalciferol (vitamin D3) 2,000 unit tablet 2,000 unit tablet 2,000 unit PO DAILY RF: 0 fluticasone propionate [Allergy Relief (fluticasone)] 50 mcg/actuation spray,suspension 1 spray INTRANASAL PRN PRN (Reason: allergies) RF: 0 torsemide 10 mg tablet 5 mg PO DAILY RF: 0 montelukast 10 mg tablet 10 mg PO DAILY RF: 0 albuterol sulfate 2.5 mg /3 mL (0.083 %) solution for nebulization 2.5 mg INHALATION 4X/DAY PRN (Reason: Sob &/Or Wheezing) RF: 0 aspirin [Adult Aspirin Regimen] 81 mg tablet,delayed release (DR/EC) 81 mg PO DAILY RF: 0 ferrous gluconate 324 mg (37.5 mg iron) tablet 324 mg PO DAILY RF: 0 magnesium oxide 400 mg magnesium tablet 400 mg PO DAILY RF: 0 Asmanex HFA 200 mcg/actuation HFA aerosol inhaler 2 puff inhalation BID RF: 0 Stiolto Respimat 2.5-2.5 mcg/actuation mist 2 puff inhalation Q24H RF: 0 atorvastatin 40 MG tablet 40 mg PO QHS RF: 0 metformin 1,000 MG tablet 1,000 mg PO BIDCM RF: 0 valsartan 320 MG tablet 320 mg PO DAILY RF: 0 albuterol sulfate 1 PUFF inhaler 2 puff INHALATION Q4H PRN PRN (Reason: Shortness Of Breath) RF: 0 pantoprazole 20 MG tablet 20 mg PO DAILY Qty: 30 RF: 0 gabapentin 100 mg capsule 100 mg PO .COMPLEX RF: 0 apixaban 5 mg tablet 5 mg PO BID Qty: 180 RF: 4 metoprolol tartrate 50 mg tablet 50 mg PO BID Qty: 180 RF: 3 Referrals / Follow Up: Umesh Orr MD [Primary Care Provider] - Within 2 Weeks Gianfranco Tavarez MD [STAFF PHYSICIAN] - Within 2 Weeks Disposition Disposition (needs filled in before D/C Order can be placed): Home, Self Care Charges/Coding Visit Charges Inpatient E&M: 71871 Disch Hosp
== END 2021-06-04 13:45 | disposition home or self-care (01) | DRG 177 ==
LOC: ED 03:34 → MS3 04:19
PROVIDERS: Student in an Organized Health Care Education/Training Program; Admitting Provider Family Medicine; Emergency Provider Emergency Medicine; PCP Family Medicine; Visit Provider Internal Medicine
DX: U07.1 COVID-19 (principal); J96.21 Acute and chronic respiratory failure with hypoxia; I50.33 Acute on chronic diastolic (congestive) heart failure; J12.82 Pneumonia due to coronavirus disease 2019; E87.1 Hypo-osmolality and hyponatremia; J44.1 Chronic obstructive pulmonary disease with (acute) exacerbation; I11.0 Hypertensive heart disease with heart failure; E87.6 Hypokalemia; G47.33 Obstructive sleep apnea (adult) (pediatric); E11.9 Type 2 diabetes mellitus without complications; E78.5 Hyperlipidemia, unspecified; Z87.891 Personal history of nicotine dependence; Z95.5 Presence of coronary angioplasty implant and graft; Z82.5 Family history of asthma and other chronic lower respiratory diseases; D64.9 Anemia, unspecified; I25.10 Atherosclerotic heart disease of native coronary artery without angina pectoris; K21.9 Gastro-esophageal reflux disease without esophagitis; N40.0 Benign prostatic hyperplasia without lower urinary tract symptoms; I48.0 Paroxysmal atrial fibrillation; E66.9 Obesity, unspecified; Z82.49 Family history of ischemic heart disease and other diseases of the circulatory system; F10.20 Alcohol dependence, uncomplicated; I25.2 Old myocardial infarction; D50.9 Iron deficiency anemia, unspecified; I27.20 Pulmonary hypertension, unspecified; Z68.35 Body mass index [BMI] 35.0-35.9, adult; Z79.01 Long term (current) use of anticoagulants; Z86.73 Personal history of transient ischemic attack (TIA), and cerebral infarction without residual deficits; Z88.1 Allergy status to other antibiotic agents; Z95.1 Presence of aortocoronary bypass graft; Z66 Do not resuscitate; Z79.4 Long term (current) use of insulin
CPT/HCPCS: 36415; 71045; 71275; 80048; 80053; 80076; 82728; 82962; 83615; 83735; 83880; 84145; 84484; 85025; 85379; 85610; 85730; 86140; 87426; 87449; 87633; 87635; 93005; 93306; 94640; 99251; 99285; Q9967; U0005; A4216; G0463; J1940; U0003

== ENCOUNTER 2021-07-25 17:30 | Emergency (ER) | payer OTHER, SELFPAY ==
[2018-05-01 14:21] VITALS: BMI 36.8
[2021-07-25 17:31] VITALS: BP 161/84; PULSE 149; RESP 22; TEMP 36.4; O2SAT 94; BMI 36.0
[2021-07-25 17:37] VITALS: PULSE 154; RESP 23; O2SAT 95
--- NOTE | 2021-07-25 18:00 | EKG12_ITS ---
Test Reason : POST CONVERSION Blood Pressure : / mmHG Vent. Rate : 065 BPM Atrial Rate : 065 BPM P-R Int : 148 ms QRS Dur : 086 ms QT Int : 400 ms P-R-T Axes : 030 058 033 degrees QTc Int : 416 ms Normal sinus rhythm with sinus arrhythmia Nonspecific ST abnormality Abnormal ECG Confirmed by ANASTACIO SIMMS, SHANDRA ([id number]), international editorial producer RENÉ SANDOVAL ([id number]) on 07/26/2021 1:30:18 PM Referred By: Confirmed By:SLIM CHAVES MD
--- NOTE | 2021-07-25 18:02 | EDS_ITS ---
HPI History of Present Illness Chief Complaint: Palpitations Narrative Narrative: Patient with past medical history of coronary artery disease and atrial fibrillation, on Eliquis presents with rapid heart rate that he has had for the last 2 hours. His states that his history and physical is limited secondary to mild memory loss. She states that he was not feeling well at around 230. He had rapid breathing and felt short of breath. He may have mild chest pain now, they state that his symptoms resolved but then again it 4-4 30 she used their heart rate monitor and his heart rate within the 160s but he had a normal pulse ox. The last time he was in atrial fibrillation was in October. She states that he never had to endure cardioversion. He has not missed a dose of his Eliquis. He denies any leg swelling or current shortness of breath. He feels his heart racing and it is uncomfortable for him. He takes metoprolol 50 mg twice a day and has already received his second dose at 4 PM. [facility] Medical History Acute and chronic respiratory failure with hypoxia Alcoholism Anemia Atherosclerotic heart disease of [place] coronary artery without angina pectoris Atrial fibrillation and flutter CAD (coronary artery disease) COPD (chronic obstructive pulmonary disease) COVID Dyspnea Essential hypertension Hydrocele, bilateral Hyperlipemia Hypokalemia Lung nodule, multiple ELISHA (obstructive sleep apnea) Presence of stent in coronary artery (~05/01/18) Pulmonary HTN Suspected COVID-19 virus infection Type 2 diabetes mellitus Home Medications albuterol sulfate 2 puff INHALATION Q4H PRN PRN 06/24/15 [History Last Taken 07/24/18] atorvastatin 40 mg PO QHS 06/24/15 [History Last Taken 10/12/20] metformin 1,000 mg PO BIDCM 06/24/15 [History Last Taken 10/13/20] valsartan 320 mg PO DAILY 06/24/15 [History Last Taken 10/13/20] cholecalciferol (vitamin D3) 50 mcg (2,000 unit) tablet 2,000 unit PO DAILY 04/14/18 [History Last Taken 10/12/20] glipizide 5 mg tablet 5 mg PO BID tablet 04/14/18 [History Last Taken 10/13/20] nifedipine 90 mg tablet,extended release 90 mg PO DAILY 04/14/18 [History Last Taken 10/13/20] omega-3 fatty acids 1,000 mg capsule 2,000 mg PO BID cap 04/14/18 [History Last Taken 10/13/20] roflumilast 500 mcg tablet 500 mcg PO DAILY 04/14/18 [History Last Taken 08/03] tamsulosin 0.4 mg capsule 0.4 mg PO DAILY 04/14/18 [History Last Taken 10/12/20] vitamin B complex 1 tablet PO MOWEFR tablet 04/14/18 [History Last Taken 10/13/20] pantoprazole 20 mg PO DAILY #30 tablet 07/28/18 [Rx Last Taken 10/13/20] albuterol sulfate 2.5 mg INHALATION 4X/DAY PRN ml 10/15/18 [History Last Taken Unknown] fluticasone propionate 50 mcg/actuation nasal spray,suspension 1 spray INTRANASAL PRN PRN 10/15/18 [History Last Taken Unknown] montelukast 10 mg tablet 10 mg PO DAILY 10/15/18 [History Last Taken 10/13/20] torsemide 10 mg tablet 5 mg PO DAILY tablet 10/15/18 [History Last Taken 10/13/20] aspirin 81 mg tablet,delayed release 81 mg PO DAILY 04/22/19 [History Last Taken 10/12/20] metoprolol tartrate 50 mg tablet 50 mg PO BID #180 tablet 09/13/19 [Rx Last Taken 10/13/20] ferrous gluconate 324 mg (37.5 mg iron) tablet 324 mg PO DAILY 10/25/20 [History Last Taken Unknown] gabapentin 100 mg capsule 100 mg PO .COMPLEX cap 10/25/20 [History Last Taken Unknown] magnesium oxide 400 mg PO DAILY 10/25/20 [History Last Taken Unknown] apixaban 5 mg PO BID #180 tab 02/06/21 [Rx Last Taken Unknown] mometasone 200 mcg/actuation HFA aerosol inhaler 2 puff INHALATION BID 05/08/21 [History Last Taken Unknown] tiotropium 2.5 mcg-olodaterol 2.5 mcg/actuation mist for inhalation 2 puff INHALATION Q24H 05/08/21 [History Last Taken Unknown] dexamethasone [Decadron] 6 mg PO DAILY #8 tab 06/04/21 [Rx Last Taken Unknown] Allergy/AdvReac Type Severity Reaction Status Date / Time doxycycline Allergy Severe Rash Verified 07/25/21 17:33 empagliflozin AdvReac Severe yeast Verified 07/25/21 17:33 [From Jardiance] infection lisinopril AdvReac Intermediate Cough Verified 07/25/21 17:33 Family History Father COPD (chronic obstructive pulmonary disease) Heart disease Mother CAD (coronary artery disease) Myocardial infarction CVA (cerebral vascular accident) Diabetes Brother CAD (coronary artery disease) Pacemaker Diabetes History of coronary artery bypass surgery Brother Brain aneurysm Surgical History History of cardiac catheterization History of hip replacement History of left heart catheterization (LHC) (~02/06/21) Presence of coronary angioplasty implant and graft (~05/01/18) Social History household members: spouse Smoking Status: Former smoker how long ago did patient quit smokin years ago, smoked since 14 years old. alcohol intake: former details: Quit in 1980 substance use type: does not use caffeine: Yes Type: coffee Number of servings: 2 ROS ROS ED ROS Narrative Constitutional: No fever, no chills. HEENT: No sore throat. No neck pain. No loss of vision. No rhinorrhea. Cardiovascular: Positive chest discomfort/chest pain. Positive palpitations. No pedal edema. Respiratory: No cough, no shortness of breath. Abdominal: No abdominal pain. No nausea. No vomiting. Genitourinary: No dysuria. No hematuria. Musculoskeletal: No myalgias. No arthralgias. Neurologic: No headaches. No dizziness. No lightheadedness. Skin: No rash. No change in color. Psychiatric: No depression. No anxiety. Mildly limited to memory loss. Review of systems also comes from who is at bedside. EXAM Physical Exam Narrative Exam Narrative: Afebrile. Vital signs noted. HEENT: Normocephalic. Atraumatic. PERRL, EOMI. Neck soft and supple. No point tenderness or step off. Cardiovascular: Positive tachycardia in the 150s, seems regular secondary to high rate. No murmurs, rubs, or gallops appreciated. Respiratory: No tachypnea. Lungs clear to auscultation bilaterally. Gastrointestinal: Abdomen soft, nontender, with normoactive bowel sounds. No rebound or guarding. Neurological: Awake. Alert. Nonfocal, nonlateralizing. Skin: No rash. Normal color. No pallor. Musculoskeletal: No pedal edema. Full range of motion extremities. Const Vital Signs: 07/25/21 17:31 07/25/21 17:37 07/25/21 18:16 Temperature 97.6 F L Temperature Source Temporal Pulse Rate 149 H 154 H Respiratory Rate 22 H 23 H Respiratory Effort Normal Blood Pressure 161/84 H Blood Pressure Mean 109 Pulse Ox 94 95 96 Oxygen Delivery Method Room Air Room Air 07/25/21 18:46 Temperature Temperature Source Pulse Rate 62 Respiratory Rate 18 Respiratory Effort Blood Pressure 130/70 H Blood Pressure Mean 90 Pulse Ox 96 Oxygen Delivery Method Room Air MDM MDM MDM Narrative Medical decision making narrative: His EKG demonstrates atrial flutter at 155 bpm. He will be given Cardizem 20 mg intravenously. Comprehensive work-up was pursued. Chest x-ray shows no acute process. CBC shows normal white count of 8.9, hemoglobin stable at 11.2, hematocrit 32.1. Potassium slightly low at 3.1. High-sensitivity troponin negative at 21. Patient was discussed with Dr. Reese. Patient will increase his metoprolol to 75 mg twice a day. prefers to cut the 50 mg tablet in half and administer 1-1/2 tablets by mouth twice a day. They will follow-up with cardiology in the next few days. Return instructions were reviewed. Patient's second EKG did demonstrate normal sinus rhythm at 65 bpm with sinus arrhythmia but no acute ST changes. I will administer oral potassium prior to discharge. Disposition is discharged home in stable condition. Lab Data Attestation: I reviewed the patient's lab results. Labs: Laboratory Results - last 24 hr 07/25/21 07/25/21 17:45 17:45 WBC 8.9 RBC 3.35 L Hgb 11.2 L Hct 32.1 L MCV 95.8 H MCH 33.4 H MCHC 34.9 RDW Std Deviation 50.3 H RDW Coeff of Anthony 14.7 H Plt Count 239 MPV 9.4 Immature Gran % (Auto) 0.500 Neut % (Auto) 76.5 H Lymph % (Auto) 17.8 L [place] % (Auto) 4.4 Eos % (Auto) 0.5 Baso % (Auto) 0.3 Absolute Neuts (auto) 6.8 Absolute Lymphs (auto) 1.58 Nucleated RBC % 0 Sodium 136 Potassium 3.1 L Chloride 100 Carbon Dioxide 26.0 Anion Gap 10 BUN 9 Creatinine 1.13 Estim Creat Clear Calc 57.68 Est GFR (MDRD) Af Amer 83 Est GFR (MDRD) Non-Af 68 BUN/Creatinine Ratio 8.0 L Glucose 212 H Calcium 9.3 Magnesium 1.9 Troponin I High Sens 21 Radiography Diagnostic Testing: Clinical Impression(s) from Imaging Studies Chest X-Ray 07/25/21 18:13 IMPRESSION: 1. Bibasilar atelectasis and scar. 2. No congestive failure, focal infiltrate, consolidation or effusion. Electronically Signed: Torsten Hernández MD at 18:38 EST Tel , Service support , Discharge Plan Triage Chief Complaint: Palpitations ED Provider: David Ryan Dx/Rx/DC Orders Clinical Impression: Paroxysmal atrial fibrillation Instructions: ED AFIB, ED Atrial Flutter Prescriptions: No Action Daliresp 500 mcg tablet 500 mcg PO DAILY RF: 0 omega-3 fatty acids [Fish Oil Concentrate] 1,000 mg capsule 2,000 mg PO BID RF: 0 glipizide 5 mg tablet 5 mg PO BID RF: 0 nifedipine 90 mg tablet extended release 90 mg PO DAILY RF: 0 tamsulosin 0.4 mg capsule 0.4 mg PO DAILY RF: 0 vitamin B complex [B Complex-Vitamin B12] tablet 1 tablet PO MOWEFR RF: 0 cholecalciferol (vitamin D3) 2,000 unit tablet 2,000 unit tablet 2,000 unit PO DAILY RF: 0 fluticasone propionate [Allergy Relief (fluticasone)] 50 mcg/actuation spray,suspension 1 spray INTRANASAL PRN PRN (Reason: allergies) RF: 0 torsemide 10 mg tablet 5 mg PO DAILY RF: 0 montelukast 10 mg tablet 10 mg PO DAILY RF: 0 albuterol sulfate 2.5 mg /3 mL (0.083 %) solution for nebulization 2.5 mg INHALATION 4X/DAY PRN (Reason: Sob &/Or Wheezing) RF: 0 aspirin [Adult Aspirin Regimen] 81 mg tablet,delayed release (DR/EC) 81 mg PO DAILY RF: 0 ferrous gluconate 324 mg (37.5 mg iron) tablet 324 mg PO DAILY RF: 0 magnesium oxide 400 mg magnesium tablet 400 mg PO DAILY RF: 0 Asmanex HFA 200 mcg/actuation HFA aerosol inhaler 2 puff inhalation BID RF: 0 Stiolto Respimat 2.5-2.5 mcg/actuation mist 2 puff inhalation Q24H RF: 0 atorvastatin 40 MG tablet 40 mg PO QHS RF: 0 metformin 1,000 MG tablet 1,000 mg PO BIDCM RF: 0 valsartan 320 MG tablet 320 mg PO DAILY RF: 0 albuterol sulfate 1 PUFF inhaler 2 puff INHALATION Q4H PRN PRN (Reason: Shortness Of Breath) RF: 0 pantoprazole 20 MG tablet 20 mg PO DAILY Qty: 30 RF: 0 gabapentin 100 mg capsule 100 mg PO .COMPLEX RF: 0 apixaban 5 mg tablet 5 mg PO BID Qty: 180 RF: 4 dexamethasone [Decadron] 6 mg tablet 6 mg PO DAILY Qty: 8 RF: 0 metoprolol tartrate 50 mg tablet 50 mg PO BID Qty: 180 RF: 3 Primary Care Provider: Umesh Orr Referrals: Umesh Orr MD [Primary Care Provider] - Chad Reese MD [STAFF PHYSICIAN] - 07/27/21 Activity Restrictions/Additional Instructions: Increase your metoprolol to 75 mg or 1-1/2 pills of the 50 mg strength orally twice a day, for a total of 150 mg by mouth daily. Follow-up with Dr. Reese in the next few days. Return with increased heart rate, new or worsening symptoms. Disposition Disposition: Home, Self Care
[2021-07-25 18:07] LABS: Absolute Lymphocyte Count 1.58 X10^3/uL (0.83-4.51); Absolute Neutrophil Count 6.8 X10^3/uL (2.0-7.7); Basophil# 0.03 X10^3/uL; Basophil% 0.3 % (0-1); Eosinophil# 0.04 X10^3/uL; Eosinophils% 0.5 % (0-5); Hematocrit 32.1 % (40-54); Hemoglobin 11.2 g/dL (13.0-16.5); Lymphocyte # 1.58 X10^3/ul (0.83-4.51); Lymphocyte % 17.8 % (19-41); Mean Corp Hgb Conc 34.9 g/dL (32-36); Mean Corpuscular Hgb 33.4 pg (27.0-32.0); Mean Corpuscular Volume 95.8 fL (80-94); Mean Platelet Vol. 9.4 fl (6.2-12.0); Monocyte# 0.39 X10^3/uL; Monocyte% 4.4 % (0-10); NRBC Flagged by Analyzer 0 % (0-5); Neutrophil % 76.5 % (47-70); Platelet Count 239 K/mm3 (150-450); RBC Distribution Width CV 14.7 % (11.6-14.6); RBC Distribution Width SD 50.3 fl (35.1-43.9); Red Blood Count 3.35 M/mm3 (4.6-6.2); White Blood Count 8.9 K/mm3 (4.4-11.0)
--- NOTE | 2021-07-25 18:13 | RAD_ITS ---
INDICATION: chest pain EXAMINATION/TECHNIQUE: X-RAY - XR Chest 1 View COMPARISON: None. FINDINGS: LIFE-SUPPORT AND LINES: 1. None HEART AND VESSELS: The cardiac silhouette, pulmonary vasculature have normal appearance. No evidence of congestive failure. LUNGS AND PLEURAL SPACES: Pleural and parenchymal scar and atelectasis at the lung bases greatest at the LEFT lung base. No focal infiltrate consolidation or effusion. No pulmonary mass is noted. MEDIASTINUM AND HILAR REGIONS: No masses adenopathy noted. No areas of calcification. Visualized upper airway is normal in position. BONY ELEMENTS: No acute bony changes noted. RAD/Chest 1 View (Portable) IMPRESSION: 1. Bibasilar atelectasis and scar. 2. No congestive failure, focal infiltrate, consolidation or effusion. Electronically Signed: Torsten Hernández MD at 18:38 EST Tel , Service support ,
[2021-07-25 18:16] VITALS: O2SAT 96
[2021-07-25] MEDS: dilTIAZem 25 MG/5 ML Vial 20 MG IV BOLUS (18:17)
[2021-07-25 18:31] LABS: Anion Gap 10 (5-15); BUN 9 mg/dL (7-18); Calcium,Total 9.3 mg/dL (8.5-10.1); Chloride 100 mmol/L (98-107); Creatinine, Serum 1.13 mg/dL (0.70-1.30); EST Glomerular Filtration Rate 68 mL/min (>60); Est Glom Filt Rate - Afr Amer 83 mL/min (>60); Estimated Creatinine Clearance 57.68 ml/min; Glucose 212 mg/dL (74-106); Magnesium 1.9 mg/dL (1.6-2.6); Potassium 3.1 mmol/L (3.5-5.1); Sodium Level 136 mmol/L (136-145); Troponin-I HS 21 pg/mL (3.0-78.0)
[2021-07-25 18:46] VITALS: BP 130/70; PULSE 62; RESP 18; O2SAT 96
--- NOTE | 2021-07-25 19:05 | EKG12_ITS ---
Test Reason : CP Blood Pressure : / mmHG Vent. Rate : 155 BPM Atrial Rate : 310 BPM P-R Int : 000 ms QRS Dur : 080 ms QT Int : 322 ms P-R-T Axes : 253 058 -84 degrees QTc Int : 517 ms Atrial flutter Marked ST abnormality, possible inferior subendocardial injury Marked ST abnormality, possible anterior subendocardial injury Abnormal ECG Confirmed by ANASTACIO SIMMS, SHANDRA ([id number]), design editor RENÉ SANDOVAL ([id number]) on 07/26/2021 1:30:57 PM Referred By: SHAKA Confirmed By:SLIM CHAVES MD
[2021-07-25] MEDS: Potassium Chloride Oral Tablet 20 MEQ 40 MEQ PO (19:36)
[2021-07-25 19:37] VITALS: BP 153/69; PULSE 94; RESP 14; O2SAT 93
== END 2021-07-25 19:52 | disposition home or self-care (01) ==
PROVIDERS: Emergency Provider Emergency Medicine; PCP Family Medicine; Visit Provider Emergency Medicine
DX: I48.0 Paroxysmal atrial fibrillation (principal); I25.10 Atherosclerotic heart disease of native coronary artery without angina pectoris; G47.33 Obstructive sleep apnea (adult) (pediatric); Z87.891 Personal history of nicotine dependence; Z86.16 Personal history of COVID-19; Z95.5 Presence of coronary angioplasty implant and graft
CPT/HCPCS: 71045; 80048; 83735; 84484; 85025; 93005; 99284; J7030

== ENCOUNTER 2021-10-25 14:38 | Outpatient (CLI) | payer MEDICARE, SELFPAY ==
[2018-05-01 14:21] VITALS: BMI 36.8
--- NOTE | 2021-10-25 14:41 | CT_ITS ---
STUDY: LOW DOSE CT LUNG CANCER SCREENING REASON FOR EXAM: Male, 71 years old. PULMONARY NODULE RADIATION DOSAGE (If Supplied By Facility): CTDIvol = ( 4.02 ) mGy, DLP = ( 140.94 ) mGycm TECHNIQUE: No contrast was administered. Low dose technique was utilized (average mAS-38 and kVp 120). 1.25 mm axial source images with a slice interval of 1.25-mm were reconstructed in lung windows. 2.5 mm axial source images with a slice interval of 2.5-mm were reconstructed in lung windows. 5.0 mm axial source images with a slice interval of 5.0-mm were reconstructed in soft tissue windows. COMPARISON: Comparison is made with prior study dated 03/09/2020. NODULES: No suspicious nodule is seen. Emphysema: Hyperinflation. Emphysematous changes more prominent in the upper lobes. Minimal linear scarring at the lung bases. Endobronchial lesion: Unremarkable Aorta: Atherosclerotic plaque formation of the aortic arch. CORONARY ARTERIES: Coronary artery calcification Heart: Unremarkable Pulmonary artery: Unremarkable Mediastinal nodes: Small benign-appearing mediastinal lymph nodes. Other chest and abdominal findings: CT/Low Dose CT Lung Screening IMPRESSION: Lung-RADS category 2 - Continue annual screening with LDCT in 12 months. IMPORTANT NOTES FOR USE: ACR Lung-RADS Version 1.1 Assessment Categories Release Date: 2018 Category: Coded 0-4 bases on nodule(s) with highest degree of suspicion. Negative screen is defined as categories 1 and 2; a positive screen is defined as categories 3 and 4. Category 3 and 4A nodules that are unchanged on interval CT should be coded as category 2, and individuals returned to screening in 12 months. Category 4X: Category 3 or 4 nodules with additional imaging findings that increase the suspicion of lung cancer, such as spiculation, GGN that doubles in size in 1 year, enlarged lymph notes, etc. Category Modifiers: S (significant finding unrelated to lung cancer) Electronically Signed: Mihir Muller MD at 15:29 EDT ,
== END 2021-10-25 23:59 | disposition home or self-care (01) ==
PROVIDERS: PCP Family Medicine; Referring Provider Internal Medicine Pulmonary Disease; Visit Provider Internal Medicine Pulmonary Disease
DX: R91.1 Solitary pulmonary nodule (principal); Z87.891 Personal history of nicotine dependence
CPT/HCPCS: 71271

== ENCOUNTER 2021-10-28 16:39 | Emergency (ER) | payer MEDICARE, SELFPAY ==
[2018-05-01 14:21] VITALS: BMI 36.8
[2021-10-28 16:40] VITALS: BP 161/65; PULSE 96; RESP 16; TEMP 36.6; O2SAT 96; BMI 35.5
[2021-10-28 16:48] VITALS: BP 179/77; PULSE 100; RESP 95; O2SAT 95
--- NOTE | 2021-10-28 17:10 | EDS_ITS ---
HPI History of Present Illness Chief Complaint: Palpitations Informant: patient Onset/Context/Timing Onset: Today Activity at onset: sudden Timing: Intermittent Quality: Positive for - (Racing) Location: Left Parasternal Worsened By: Nothing Relieved By: Nothing Associated Symptoms: Positive for Cough and Palpitations; Negative for Nausea, Vomiting, Diaphoresis, Dyspnea, Fever, Lightheadedness and Acid Reflux Narrative Narrative: Patient presents with palpitations that began today. Patient states he felt like his heart was racing. Patient states he has a history of atrial fibrillation and this feels similar to prior episodes of atrial fibrillation with rapid ventricular response. Patient denies any chest pain. Patient states nothing makes it worse nothing makes it better. Patient denies any shortness of breath. Patient admits to a mild cough. Patient states his metoprolol was decreased recently due to bradycardia. Patient denies any nausea or vomiting. CVD Risk Factors: Positive for Hypertension and Diabetes; Negative for Hypercholesterolemia, Family History 1' </=55 and Smoking PE Risk Factors: Negative for Recent Travel/Surgery, Recent Immobilization, Prior DVT or PE, Cancer and OCP + Smoking + >/=35 PFSH PFSH Medical History Acute and chronic respiratory failure with hypoxia Alcoholism Anemia Atherosclerotic heart disease of [place] coronary artery without angina pectoris Atrial fibrillation and flutter CAD (coronary artery disease) COPD (chronic obstructive pulmonary disease) COVID Dyspnea Encounter for screening for COVID-19 Essential hypertension History of short term memory loss Hydrocele, bilateral Hyperlipemia Hypokalemia Lung nodule, multiple ELISHA (obstructive sleep apnea) Presence of stent in coronary artery (~05/01/18) Pulmonary HTN Suspected COVID-19 virus infection Type 2 diabetes mellitus Home Medications albuterol sulfate 2 puff INHALATION Q4H PRN PRN 06/24/15 [History Last Taken 07/24/18] atorvastatin 40 mg PO QHS 06/24/15 [History Last Taken 10/12/20] metformin 1,000 mg PO BIDCM 06/24/15 [History Last Taken 10/13/20] valsartan 320 mg PO DAILY 06/24/15 [History Last Taken 10/13/20] cholecalciferol (vitamin D3) 50 mcg (2,000 unit) tablet 2,000 unit PO DAILY 04/14/18 [History Last Taken 10/12/20] glipizide 5 mg tablet 5 mg PO BID tablet 04/14/18 [History Last Taken 10/13/20] nifedipine 90 mg tablet,extended release 90 mg PO DAILY 04/14/18 [History Last Taken 10/13/20] omega-3 fatty acids 1,000 mg capsule 2,000 mg PO BID cap 04/14/18 [History Last Taken 10/13/20] roflumilast 500 mcg tablet 500 mcg PO DAILY 04/14/18 [History Last Taken 10/12/20] tamsulosin 0.4 mg capsule 0.4 mg PO DAILY 04/14/18 [History Last Taken 10/12/20] vitamin B complex 1 tablet PO MOWEFR tablet 04/14/18 [History Last Taken 10/13/20] pantoprazole 20 mg PO DAILY #30 tablet 07/28/18 [Rx Last Taken 10/13/20] albuterol sulfate 2.5 mg INHALATION 4X/DAY PRN ml 10/15/18 [History Last Taken Unknown] fluticasone propionate 50 mcg/actuation nasal spray,suspension 1 spray INTRANASAL PRN PRN 10/15/18 [History Last Taken Unknown] montelukast 10 mg tablet 10 mg PO DAILY 10/15/18 [History Last Taken 10/13/20] torsemide 10 mg tablet 5 mg PO DAILY tablet 10/15/18 [History Last Taken 10/13/20] aspirin 81 mg tablet,delayed release 81 mg PO DAILY 04/22/19 [History Last Taken 10/12/20] ferrous gluconate 324 mg (37.5 mg iron) tablet 324 mg PO DAILY 10/25/20 [History Last Taken Unknown] gabapentin 100 mg capsule 100 mg PO .COMPLEX cap 10/25/20 [History Last Taken Unknown] magnesium oxide 400 mg PO DAILY 10/25/20 [History Last Taken Unknown] apixaban 5 mg PO BID #180 tab 02/06/21 [Rx Last Taken Unknown] mometasone 200 mcg/actuation HFA aerosol inhaler 2 puff INHALATION BID 05/08/21 [History Last Taken Unknown] tiotropium 2.5 mcg-olodaterol 2.5 mcg/actuation mist for inhalation 2 puff INHALATION Q24H 05/08/21 [History Last Taken Unknown] prednisone 5 mg tablet 5 mg PO Q OTHER DAY 08/01/21 [History Last Taken Unknown] sertraline 50 mg tablet 50 mg PO DAILY 08/01/21 [History Last Taken Unknown] metoprolol tartrate 50 mg tablet 25 mg PO BID #180 tab 10/16/21 [Rx Last Taken Unknown] Allergy/AdvReac Type Severity Reaction Status Date / Time doxycycline Allergy Severe Rash Verified 10/28/21 16:42 empagliflozin AdvReac Severe yeast Verified 10/28/21 16:42 [From Jardiance] infection lisinopril AdvReac Intermediate Cough Verified 10/28/21 16:42 Family History Father COPD (chronic obstructive pulmonary disease) Heart disease Mother CAD (coronary artery disease) Myocardial infarction CVA (cerebral vascular accident) Diabetes Brother CAD (coronary artery disease) Pacemaker Diabetes History of coronary artery bypass surgery Brother Brain aneurysm Surgical History History of cardiac catheterization History of hip replacement History of left heart catheterization (LHC) (~02/06/21) Presence of coronary angioplasty implant and graft (~05/01/18) Social History household members: spouse Smoking Status: Former smoker how long ago did patient quit smokin years ago, smoked since 14 years old. alcohol intake: former details: Quit in 1980 substance use type: does not use caffeine: Yes Type: coffee Number of servings: 2 ROS ROS ED Constitutional Constitutional ED: Denies chills or fever(s) Eyes Eyes: Denies blurry vision or change in vision ENT ENT ED: Reports rhinorrhea; Denies sore throat Cardiovascular Cardiovascular: Reports palpitations; Denies chest pain Respiratory/Chest Respiratory/Chest: Reports cough; Denies dyspnea Gastrointestinal Gastrointestinal: Denies abdominal pain, nausea or vomiting Genitourinary Genitourinary ED: Denies dysuria or hematuria Musculoskeletal Musculoskeletal: Reports back pain; Denies neck pain Integumentary Denies abscess or rash Neurologic Neurologic: Reports headache(s); Denies weakness Allergic/Immunologic Allergic/Immunologic ED: Denies mouth swelling or urticaria EXAM Physical Exam Const Vital Signs: 10/28/21 16:40 10/28/21 16:48 10/28/21 17:22 Temperature 97.8 F Temperature Source Temporal Pulse Rate 96 100 Respiratory Rate 16 95 H Blood Pressure 161/65 H 179/77 H Blood Pressure Mean 97 111 Pulse Ox 96 95 Oxygen Delivery Method Room Air Room Air Room Air 10/28/21 19:11 Temperature Temperature Source Pulse Rate 83 Respiratory Rate 18 Blood Pressure 146/71 H Blood Pressure Mean 96 Pulse Ox 92 Oxygen Delivery Method Positive well nourished, well developed and obese General Appearance ED: well developed and NAD Nutritional Appearance: obese HEENT normocephalic and atraumatic Eyes PERRL and EOMs intact bilaterally Neck supple and no JVD Chest Wall palpation of chest normal Resp normal respiratory effort and clear to auscultation bilaterally Effort and Inspection: Negative for respiratory distress Cardio regular rate, regular rhythm and no murmurs GI normal to inspection, nondistended, normoactive bowel sounds, soft to palpation, non-tender and non-distended Extremity normal to inspection General Extremety ED: Negative for edema or tenderness General Extremity: Negative for edema Neuro oriented x3, CN's II-XII intact bilaterally and no sensory deficits noted Sensorium / Orientation: awake and alert Motor Exam: strength 5/5 throughout Psych mental status grossly normal Heart Score History: Slightly/Non-Suspicious ECG: Nonspecific Repolarization Age: >/= 65 years Risk Factors: >/= 3 Risk Factors or History of CAD Score: 5 MDM MDM MDM Narrative Medical decision making narrative: EKG was obtained. On my interpretation shows a normal sinus rhythm with a rate of 100. There are nonspecific ST-T wave changes. There are frequent PVCs. VT interval, QRS interval, and QTc intervals were normal. [place] is normal. Portable 1 view chest x-ray was obtained. On my interpretation, lung lim are clear. There is normal cardiac silhouette. Bony thorax is normal. There is no acute process noted. Radiologist also interpreted the x-ray and agrees. CBC was within normal limits. PT with INR and PTT were essentially within normal limits. Basic metabolic profile was normal except for an elevated glucose of 271. Anion gap was normal. High- sensitivity troponin was normal. Patient was feeling better on reevaluation. Patient was instructed to follow-up with his primary care physician in 5 to 7 days. Patient was instructed return if worse in any way. Patient understood and was agreeable with the plan. All questions were answered. Lab Data Attestation: I reviewed the patient's lab results. Labs: Laboratory Results - last 24 hr 10/28/21 10/28/21 10/28/21 17:20 17:20 17:20 WBC 5.9 RBC 3.70 L Hgb 11.9 L Hct 32.9 L MCV 88.9 MCH 32.2 H MCHC 36.2 H RDW Std Deviation 43.0 RDW Coeff of Anthony 13.2 Plt Count 226 MPV 10.2 Immature Gran % (Auto) 0.300 Neut % (Auto) 72.7 H Lymph % (Auto) 20.1 [place] % (Auto) 5.6 Eos % (Auto) 1.0 Baso % (Auto) 0.3 Absolute Neuts (auto) 4.3 Absolute Lymphs (auto) 1.19 Nucleated RBC % 0 PT 13.3 INR 1.0 APTT 37.8 H Sodium 138 Potassium 3.3 L Chloride 104 Carbon Dioxide 25.0 Anion Gap 9 BUN 10 Creatinine 1.10 Estim Creat Clear Calc 61.32 Est GFR (MDRD) Af Amer 85 Est GFR (MDRD) Non-Af 70 BUN/Creatinine Ratio 9.1 L Glucose 271 H Calcium 9.5 Troponin I High Sens 10/28/21 17:20 WBC RBC Hgb Hct MCV MCH MCHC RDW Std Deviation RDW Coeff of Anthony Plt Count MPV Immature Gran % (Auto) Neut % (Auto) Lymph % (Auto) [place] % (Auto) Eos % (Auto) Baso % (Auto) Absolute Neuts (auto) Absolute Lymphs (auto) Nucleated RBC % PT INR APTT Sodium Potassium Chloride Carbon Dioxide Anion Gap BUN Creatinine Estim Creat Clear Calc Est GFR (MDRD) Af Amer Est GFR (MDRD) Non-Af BUN/Creatinine Ratio Glucose Calcium Troponin I High Sens 7 Radiography Chest X-Ray - ED: 1 View, Read by ED Physician, Read by Radiologist and No Acute Disease Diagnostic Testing: Clinical Impression(s) from Imaging Studies Chest X-Ray 10/28/21 17:36 IMPRESSION: No interval change. No active or acute cardiopulmonary disease. Electronically Signed: Guillermo De Anda MD at 17:52 EDT , EKG Initial EKG: Attestation: I personally reviewed and interpreted this EKG as follows: Interpretation: Sinus Rhythm (100 with frequent PVCs), No Acute Injury Pattern and Non-Specific ST Changes Prior EKG tracings: available for review Prior: Unchanged (08/11/2021) Discharge Plan Triage Chief Complaint: Palpitations ED Provider: Yong Bass Dx/Rx/DC Orders Clinical Impression: Heart palpitations, Hypokalemia Instructions: ED Palpitations Prescriptions: No Action Daliresp 500 mcg tablet 500 mcg PO DAILY RF: 0 omega-3 fatty acids [Fish Oil Concentrate] 1,000 mg capsule 2,000 mg PO BID RF: 0 glipizide 5 mg tablet 5 mg PO BID RF: 0 nifedipine 90 mg tablet extended release 90 mg PO DAILY RF: 0 tamsulosin 0.4 mg capsule 0.4 mg PO DAILY RF: 0 vitamin B complex [B Complex-Vitamin B12] tablet 1 tablet PO MOWEFR RF: 0 cholecalciferol (vitamin D3) 2,000 unit tablet 2,000 unit tablet 2,000 unit PO DAILY RF: 0 fluticasone propionate [Allergy Relief (fluticasone)] 50 mcg/actuation spray,suspension 1 spray INTRANASAL PRN PRN (Reason: allergies) RF: 0 torsemide 10 mg tablet 5 mg PO DAILY RF: 0 montelukast 10 mg tablet 10 mg PO DAILY RF: 0 albuterol sulfate 2.5 mg /3 mL (0.083 %) solution for nebulization 2.5 mg INHALATION 4X/DAY PRN (Reason: Sob &/Or Wheezing) RF: 0 aspirin [Adult Aspirin Regimen] 81 mg tablet,delayed release (DR/EC) 81 mg PO DAILY RF: 0 ferrous gluconate 324 mg (37.5 mg iron) tablet 324 mg PO DAILY RF: 0 magnesium oxide 400 mg magnesium tablet 400 mg PO DAILY RF: 0 Asmanex HFA 200 mcg/actuation HFA aerosol inhaler 2 puff inhalation BID RF: 0 Stiolto Respimat 2.5-2.5 mcg/actuation mist 2 puff inhalation Q24H RF: 0 sertraline 50 mg tablet 50 mg PO DAILY RF: 0 prednisone 5 mg tablet 5 mg PO Q OTHER DAY RF: 0 atorvastatin 40 MG tablet 40 mg PO QHS RF: 0 metformin 1,000 MG tablet 1,000 mg PO BIDCM RF: 0 valsartan 320 MG tablet 320 mg PO DAILY RF: 0 albuterol sulfate 1 PUFF inhaler 2 puff INHALATION Q4H PRN PRN (Reason: Shortness Of Breath) RF: 0 pantoprazole 20 MG tablet 20 mg PO DAILY Qty: 30 RF: 0 gabapentin 100 mg capsule 100 mg PO .COMPLEX RF: 0 apixaban 5 mg tablet 5 mg PO BID Qty: 180 RF: 4 metoprolol tartrate 50 mg tablet 25 mg PO BID Qty: 180 RF: 3 Primary Care Provider: Umesh Orr Referrals: Umesh Orr MD [Primary Care Provider] - 3-5 Days Disposition Disposition: Home, Self Care
--- NOTE | 2021-10-28 17:20 | EKG12_ITS ---
Test Reason : PALPS Blood Pressure : / mmHG Vent. Rate : 100 BPM Atrial Rate : 100 BPM P-R Int : 196 ms QRS Dur : 088 ms QT Int : 378 ms P-R-T Axes : 063 055 064 degrees QTc Int : 487 ms Sinus rhythm with frequent Premature ventricular complexes Nonspecific ST and T wave abnormality Prolonged QT Abnormal ECG Confirmed by WINTER SIMMS, CHANO ([id number]), editor managing director RENÉ SANDOVAL ([id number]) on 10/31/2021 9:00:13 AM Referred By: JUSTYN/NOE Confirmed By:CHANO MAX MD
--- NOTE | 2021-10-28 17:36 | RAD_ITS ---
STUDY: X-RAY CHEST REASON FOR EXAM: Male, 71 years old. Chest pain. TECHNIQUE: Single frontal view of the chest. COMPARISON: 07/25/2021. FINDINGS: The lungs are clear and expanded. Scattered healed parenchymal granulomatous calcifications. There is no demonstrated pleural abnormality. Normal size heart. Normal mediastinum and darryl. Normal visualized pulmonary arteries. Normal visualized aortic arch and descending thoracic aorta. Normal visualized ribs, clavicles, and shoulders. There is no demonstrated abnormality of the visualized soft tissue structures of the upper abdomen. RAD/Chest 1 View (Portable) IMPRESSION: No interval change. No active or acute cardiopulmonary disease. Electronically Signed: Guillermo De Anda MD at 17:52 EDT ,
[2021-10-28] MEDS: Aspirin 81 MG TAB.CHEW 324 MG PO (17:39)
[2021-10-28 17:45] LABS: Absolute Lymphocyte Count 1.19 X10^3/uL (0.83-4.51); Absolute Neutrophil Count 4.3 X10^3/uL (2.0-7.7); Basophil# 0.02 X10^3/uL; Basophil% 0.3 % (0-1); Eosinophil# 0.06 X10^3/uL; Hematocrit 32.9 % (40-54); Hemoglobin 11.9 g/dL (13.0-16.5); Lymphocyte # 1.19 X10^3/ul (0.83-4.51); Lymphocyte % 20.1 % (19-41); Mean Corp Hgb Conc 36.2 g/dL (32-36); Mean Corpuscular Hgb 32.2 pg (27.0-32.0); Mean Corpuscular Volume 88.9 fL (80-94); Mean Platelet Vol. 10.2 fl (6.2-12.0); Monocyte# 0.33 X10^3/uL; Monocyte% 5.6 % (0-10); NRBC Flagged by Analyzer 0 % (0-5); Neutrophil # 4.31 X10^3/uL (2.7-7.7); Neutrophil % 72.7 % (47-70); Platelet Count 226 K/mm3 (150-450); RBC Distribution Width CV 13.2 % (11.6-14.6); White Blood Count 5.9 K/mm3 (4.4-11.0)
[2021-10-28 17:53] LABS: Partial Thromboplast Time 37.8 Seconds (24.1-36.2); Prothrombin Time (Protime)PT. 13.3 SECONDS (11.7-14.9)
[2021-10-28 18:04] LABS: Anion Gap 9 (5-15); BUN 10 mg/dL (7-18); BUN/Creat Ratio 9.1 RATIO (10-20); Calcium,Total 9.5 mg/dL (8.5-10.1); Chloride 104 mmol/L (98-107); EST Glomerular Filtration Rate 70 mL/min (>60); Est Glom Filt Rate - Afr Amer 85 mL/min (>60); Estimated Creatinine Clearance 61.32 ml/min; Glucose 271 mg/dL (74-106); Potassium 3.3 mmol/L (3.5-5.1); Sodium Level 138 mmol/L (136-145)
[2021-10-28 18:13] LABS: Troponin-I HS (w/2H Reflex) 7 pg/mL (3.0-78.0)
[2021-10-28 19:11] VITALS: BP 146/71; PULSE 83; RESP 18; O2SAT 92
[2021-10-28 19:35] VITALS: BP 143/66; PULSE 69; RESP 18; O2SAT 93
[2021-10-28 19:39] LABS: Reflex Troponin-HS? (from REC) Y
== END 2021-10-28 19:35 | disposition home or self-care (01) ==
PROVIDERS: Emergency Provider Emergency Medicine; PCP Family Medicine; Visit Provider Emergency Medicine
DX: R00.2 Palpitations (principal); J44.9 Chronic obstructive pulmonary disease, unspecified; E11.9 Type 2 diabetes mellitus without complications; E87.6 Hypokalemia; I49.3 Ventricular premature depolarization; I25.10 Atherosclerotic heart disease of native coronary artery without angina pectoris; I10 Essential (primary) hypertension; Z87.891 Personal history of nicotine dependence; E78.5 Hyperlipidemia, unspecified; G47.33 Obstructive sleep apnea (adult) (pediatric); R05.9 Cough, unspecified; Z86.16 Personal history of COVID-19; R94.31 Abnormal electrocardiogram [ECG] [EKG]; R07.9 Chest pain, unspecified
CPT/HCPCS: 71045; 80048; 84484; 85025; 85610; 85730; 93005; 99285

== ENCOUNTER → 2021-10-31 | Outpatient (CLI) | payer MEDICARE, SELFPAY ==
[2018-05-01 14:21] VITALS: BMI 36.8
[2021-10-31 18:01] LABS: Hematocrit 29.9 % (40-54); Hemoglobin 10.3 g/dL (13.0-16.5); Mean Corp Hgb Conc 34.4 g/dL (32-36); Mean Corpuscular Hgb 31.6 pg (27.0-32.0); Mean Corpuscular Volume 91.7 fL (80-94); Mean Platelet Vol. 10.1 fl (6.2-12.0); Platelet Count 223 K/mm3 (150-450); RBC Distribution Width CV 13.6 % (11.6-14.6); RBC Distribution Width SD 45.7 fl (35.1-43.9); Red Blood Count 3.26 M/mm3 (4.6-6.2); White Blood Count 6.3 K/mm3 (4.4-11.0)
[2021-10-31 18:16] LABS: Vitamin B12 1031 pg/mL (211-911); Vitamin D,25 Hydroxy 42.8 ng/mL
[2021-10-31 18:22] LABS: BNP,B-Type NATRIURETIC PEPTIDE 35.5 pg/mL (0-100)
[2021-10-31 18:23] LABS: Anion Gap 9 (5-15); BUN 13 mg/dL (7-18); Chloride 98 mmol/L (98-107); Creatinine, Serum 0.93 mg/dL (0.70-1.30); EST Glomerular Filtration Rate 86 mL/min (>60); Est Glom Filt Rate - Afr Amer 104 mL/min (>60); Glucose 130 mg/dL (74-106); Iron 108 ug/dL (65-175); Potassium 3.4 mmol/L (3.5-5.1); Sodium Level 133 mmol/L (136-145); Thyroid Stim Hormone (TSH) 0.98 uIU/mL (0.358-3.74)
[2021-11-01 12:32] LABS: RET-HE 34.9 pg (30-35); Reticulocyte Count 3.75 % (0.5-1.5)
[2021-11-01 13:00] LABS: Ferritin 22 ng/mL (26-388); Iron Binding Capacity,Total 373 ug/dL (250-450)
== END | disposition home or self-care (01) ==
LOC: MFPLAB 14:37
PROVIDERS: PCP Family Medicine; Referring Provider Family Medicine; Visit Provider Family Medicine
DX: U07.1 COVID-19 (principal); I50.9 Heart failure, unspecified; E11.9 Type 2 diabetes mellitus without complications; R53.83 Other fatigue; D64.9 Anemia, unspecified
CPT/HCPCS: 36415; 80048; 82306; 82607; 82728; 83540; 83550; 83880; 84403; 84443; 85027; 85045

== ENCOUNTER 2021-11-26 18:49 | Observation (INO) | payer OTHER, SELFPAY ==
[2018-05-01 14:21] VITALS: BMI 36.8
[2021-11-26] VITALS (7 sets, daily range): BP systolic 137–168; BP diastolic 68–74; PULSE 60–66; RESP 16–24; TEMP 36.7–37.7; O2SAT 95–100; BMI 36.0; BMI 33.5
--- NOTE | 2021-11-26 20:54 | EDS_ITS ---
HPI History of Present Illness Chief Complaint: Abn Labs Informant: patient Onset/Context/Timing Onset: Today Timing: Continuous Current Severity: Mild Maximum Severity: Mild Narrative Narrative: 71-year-old male extensive past medical history of A. fib on Eliquis, CAD, COPD on 3 L oxygen at home and diabetes. Prior history of GI bleed without diagnosed source and has needed transfusions before in the past. Over the weekend he had wheezing and shortness of breath. Saw his primary care physician's office today they ordered labs. And a chest x-ray. His hemoglobin came back 7 and they sent him to emergency department to be transfused and admitted. 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 They had him on steroids for a month did not think that any significant difference in his wheezing and feel that he has chronic scarring. He denies any chest pain. Prior similar symptoms: Yes Recent Illness/Hospitalization: No [facility] Medical History Acute and chronic respiratory failure with hypoxia Alcoholism Anemia Atherosclerotic heart disease of [place] coronary artery without angina pectoris Atrial fibrillation and flutter CAD (coronary artery disease) COPD (chronic obstructive pulmonary disease) COVID Dyspnea Encounter for screening for COVID-19 Essential hypertension History of short term memory loss Hydrocele, bilateral Hyperlipemia Hypokalemia Lung nodule, multiple ELISHA (obstructive sleep apnea) Presence of stent in coronary artery (~05/01/18) Pulmonary HTN Suspected COVID-19 virus infection Type 2 diabetes mellitus Home Medications albuterol sulfate 2 puff INHALATION Q4H PRN PRN 06/24/15 [History Last Taken 07/24/18] atorvastatin 40 mg PO QHS 06/24/15 [History Last Taken 10/12/20] metformin 1,000 mg PO BIDCM 06/24/15 [History Last Taken 10/13/20] valsartan 320 mg PO DAILY 06/24/15 [History Last Taken 10/13/20] cholecalciferol (vitamin D3) 50 mcg (2,000 unit) tablet 2,000 unit PO DAILY 04/14/18 [History Last Taken 10/12/20] glipizide 5 mg tablet 5 mg PO BID tablet 04/14/18 [History Last Taken 10/13/20] nifedipine 90 mg tablet,extended release 90 mg PO DAILY 04/14/18 [History Last Taken 10/13/20] omega-3 fatty acids 1,000 mg capsule 2,000 mg PO BID cap 04/14/18 [History Last Taken 10/13/20] roflumilast 500 mcg tablet 500 mcg PO DAILY 04/14/18 [History Last Taken 10/12/20] tamsulosin 0.4 mg capsule 0.4 mg PO DAILY 04/14/18 [History Last Taken 10/12/20] vitamin B complex 1 tablet PO MOWEFR tablet 04/14/18 [History Last Taken 10/13/20] pantoprazole 20 mg PO DAILY #30 tablet 07/28/18 [Rx Last Taken 10/13/20] albuterol sulfate 2.5 mg INHALATION 4X/DAY PRN ml 10/15/18 [History Last Taken Unknown] fluticasone propionate 50 mcg/actuation nasal spray,suspension 1 spray INTRANASAL PRN PRN 10/15/18 [History Last Taken Unknown] montelukast 10 mg tablet 10 mg PO DAILY 10/15/18 [History Last Taken 10/13/20] torsemide 10 mg tablet 5 mg PO DAILY tablet 10/15/18 [History Last Taken 10/13/20] aspirin 81 mg tablet,delayed release 81 mg PO DAILY 04/22/19 [History Last Taken 10/12/20] ferrous gluconate 324 mg (37.5 mg iron) tablet 324 mg PO DAILY 10/25/20 [History Last Taken Unknown] gabapentin 100 mg capsule 100 mg PO .COMPLEX cap 10/25/20 [History Last Taken Unknown] magnesium oxide 400 mg PO DAILY 10/25/20 [History Last Taken Unknown] apixaban 5 mg PO BID #180 tab 02/06/21 [Rx Last Taken Unknown] mometasone 200 mcg/actuation HFA aerosol inhaler 2 puff INHALATION BID 05/08/21 [History Last Taken Unknown] tiotropium 2.5 mcg-olodaterol 2.5 mcg/actuation mist for inhalation 2 puff INHALATION Q24H 05/08/21 [History Last Taken Unknown] prednisone 5 mg tablet 5 mg PO Q OTHER DAY 08/01/21 [History Last Taken Unknown] sertraline 50 mg tablet 50 mg PO DAILY 08/01/21 [History Last Taken Unknown] metoprolol tartrate 50 mg tablet 25 mg PO BID #180 tab 10/16/21 [Rx Last Taken Unknown] Allergy/AdvReac Type Severity Reaction Status Date / Time doxycycline Allergy Severe Rash Verified 11/26/21 18:50 empagliflozin AdvReac Severe yeast Verified 11/26/21 18:50 [From Jardiance] infection lisinopril AdvReac Intermediate Cough Verified 11/26/21 18:50 Family History Father COPD (chronic obstructive pulmonary disease) Heart disease Mother CAD (coronary artery disease) Myocardial infarction CVA (cerebral vascular accident) Diabetes Brother CAD (coronary artery disease) Pacemaker Diabetes History of coronary artery bypass surgery Brother Brain aneurysm Surgical History History of cardiac catheterization History of hip replacement History of left heart catheterization (LHC) (~02/06/21) Presence of coronary angioplasty implant and graft (~05/01/18) Social History household members: spouse Smoking Status: Former smoker how long ago did patient quit smokin years ago, smoked since 14 years old. alcohol intake: former details: Quit in 1980 substance use type: does not use caffeine: Yes Type: coffee Number of servings: 2 ROS ROS ED ROS Narrative Wheezing. Short of breath. Review of Systems ROS Unobtainable: Denies due to encephalopathy Constitutional Constitutional ED: Denies fever(s) Eyes Eyes: Denies change in vision ENT ENT ED: Denies ear pain Cardiovascular Cardiovascular: Denies chest pain Respiratory/Chest Respiratory/Chest: Denies dyspnea Gastrointestinal Gastrointestinal: Denies abdominal pain, constipation, diarrhea, nausea or vomiting Genitourinary Genitourinary ED: Denies dysuria Musculoskeletal Musculoskeletal: Denies myalgias Integumentary Denies rash Neurologic Neurologic: Denies headache(s) Psychiatric Psychiatric: Denies depression Endocrine Endocrinology: Denies polyuria Allergic/Immunologic Allergic/Immunologic ED: Denies urticaria EXAM Physical Exam Narrative Exam Narrative: 71-year-old male no acute distress vital signs stable afebrile. Pulse ox 97% on room air. Often he is on 3 L. H EENT exam unremarkable. Neck nontender no JVD. No lymphadenopathy. Lungs few scattered expiratory wheezes. No rales or rhonchi. Equal symmetrical. Patient breathing comfortably. No distress. Heart regular rhythm rate about 65 no murmur. Chest wall nontender. Abdomen soft nontender. Moving all 4 extremities. Calves are nontender without edema or cords. Neurologically is awake and alert with no focal motor deficits. Const Vital Signs: 11/26/21 18:50 11/26/21 19:49 11/26/21 20:32 Temperature 98.0 F Temperature Source Temporal Pulse Rate 66 66 Respiratory Rate 24 H 18 Respiratory Effort Short of Breath Respiratory Pattern Normal Blood Pressure 147/68 H Blood Pressure Mean 94 Pulse Ox 97 95 Oxygen Delivery Method Room Air Room Air Positive well nourished, well developed and obese; Negative for cachectic, contractures or unkempt General Appearance ED: well developed and NAD; Negative for unkempt, cachectic, contractures, cyanotic, diaphoretic or pallor Nutritional Appearance: obese; Negative for cachectic HEENT Reports moist mucous membranes Negative for trauma or tenderness Eyes PERRL and EOMs intact bilaterally General Eye ED: Negative for pale conjunctiva or scleral icterus Neck no lymphadenopathy, supple and no JVD General: Negative for tenderness Chest Wall inspection of chest normal and palpation of chest normal Resp normal respiratory effort and No clear to auscultation bilaterally Effort and Inspection: Negative for pain with movement Auscultation: wheezes; Negative for rales or rhonchi Cardio regular rate, regular rhythm, S1 normal heart sound, S2 normal heart sound and no murmurs GI normal to inspection, nondistended, normoactive bowel sounds, non-tender, non- distended and no masses Inspection: Negative for abdominal distention Auscultation: normoactive bowel sounds Palpation: soft; Negative for tender, guarding or rebound tenderness present Back/Spine no CVA tenderness General Back: Negative for CVA tenderness Cervical Spine: Negative for cervical spine tenderness Thoracic Spine / Upper Back: Negative for thoracic spinal tenderness Extremity normal to inspection Neuro oriented x3 Sensorium / Orientation: alert; Negative for orientation impaired, lethargic or stuporous Motor Exam: strength 5/5 throughout Psych mental status grossly normal Appearance: Negative for unkempt Mood & Affect: Negative for depressed or tearful Skin no rashes or lesions noted and no wounds General Skin Exam: Negative for jaundice or pallor MDM MDM MDM Narrative Medical decision making narrative: 71-year-old male with acute on chronic anemia with a history of prior GI bleed with an undiagnosed source. He also has acute on chronic COPD. He will be given 1 DuoNeb aerosol. His labs were already done as an outpatient today. I wrote for a type and cross and be transfused 2 units. I will call the hospitalist for admission. Lab Data Attestation: I reviewed the patient's lab results. Lab results narrative: CBC shows hemoglobin of 7 1 was previously 10. He is acute on chronic anemia. Electrolytes unremarkable. They did outpatient D- dimer test which was negative. Had an outpatient chest x-ray which showed chronic changes. BNP was 110. Again these tests were done earlier today on an outpatient basis through his primary care physician's office.` Radiography Chest X-Ray - ED: 1 View, Read by ED Physician, Read by Radiologist, Heart, Lungs, Mediastinum, Bony Structures, No Acute Disease and Chronic Changes Diagnostic Testing: Chest x-ray done earlier today 2 views AP and lateral read by the radiologist and reviewed by me shows no acute abnormality. Discharge Plan Triage Chief Complaint: Abn Labs ED Provider: Celso Fregoso Dx/Rx/DC Orders Clinical Impression: Acute on chronic anemia, History of GI bleed, COPD exacerbation Prescriptions: No Action Daliresp 500 mcg tablet 500 mcg PO DAILY RF: 0 omega-3 fatty acids [Fish Oil Concentrate] 1,000 mg capsule 2,000 mg PO BID RF: 0 glipizide 5 mg tablet 5 mg PO BID RF: 0 nifedipine 90 mg tablet extended release 90 mg PO DAILY RF: 0 tamsulosin 0.4 mg capsule 0.4 mg PO DAILY RF: 0 vitamin B complex [B Complex-Vitamin B12] tablet 1 tablet PO MOWEFR RF: 0 cholecalciferol (vitamin D3) 2,000 unit tablet 2,000 unit tablet 2,000 unit PO DAILY RF: 0 fluticasone propionate [Allergy Relief (fluticasone)] 50 mcg/actuation spray,suspension 1 spray INTRANASAL PRN PRN (Reason: allergies) RF: 0 torsemide 10 mg tablet 5 mg PO DAILY RF: 0 montelukast 10 mg tablet 10 mg PO DAILY RF: 0 albuterol sulfate 2.5 mg /3 mL (0.083 %) solution for nebulization 2.5 mg INHALATION 4X/DAY PRN (Reason: Sob &/Or Wheezing) RF: 0 aspirin [Adult Aspirin Regimen] 81 mg tablet,delayed release (DR/EC) 81 mg PO DAILY RF: 0 ferrous gluconate 324 mg (37.5 mg iron) tablet 324 mg PO DAILY RF: 0 magnesium oxide 400 mg magnesium tablet 400 mg PO DAILY RF: 0 Asmanex HFA 200 mcg/actuation HFA aerosol inhaler 2 puff inhalation BID RF: 0 Stiolto Respimat 2.5-2.5 mcg/actuation mist 2 puff inhalation Q24H RF: 0 sertraline 50 mg tablet 50 mg PO DAILY RF: 0 prednisone 5 mg tablet 5 mg PO Q OTHER DAY RF: 0 atorvastatin 40 MG tablet 40 mg PO QHS RF: 0 metformin 1,000 MG tablet 1,000 mg PO BIDCM RF: 0 valsartan 320 MG tablet 320 mg PO DAILY RF: 0 albuterol sulfate 1 PUFF inhaler 2 puff INHALATION Q4H PRN PRN (Reason: Shortness Of Breath) RF: 0 pantoprazole 20 MG tablet 20 mg PO DAILY Qty: 30 RF: 0 gabapentin 100 mg capsule 100 mg PO .COMPLEX RF: 0 apixaban 5 mg tablet 5 mg PO BID Qty: 180 RF: 4 metoprolol tartrate 50 mg tablet 25 mg PO BID Qty: 180 RF: 3 Primary Care Provider: Uemsh Orr Referrals: Umesh Orr MD [Primary Care Provider] - Disposition Disposition: Acute Care [facility]
[2021-11-26] MEDS: Ipratropium/Albuterol Sulfate 3 ML AMPUL.NEB INHALATION (21:09)
--- NOTE | 2021-11-26 21:13 | PCM.HP.STD ---
HPI - General HPI Narrative ESTEFANY PEPPER, is a 71 M who presents to the emergency room with acute shortness of breath. Patient was seen in his primary care physician's office earlier today and laboratory studies were drawn revealing a hemoglobin of 7 which prompted him to be sent to the emergency room. Patient has COPD at baseline and is normally on 3 L of oxygen, he denies chest pain and/or fevers or chills. The patient takes Eliquis for chronic atrial fibrillation which will be held due to gastrointestinal bleed and anemia. The patient reports the chronic GI bleed has been worked up over the past 10 years. The patient will be admitted for observation transfuse 2 units packed red blood cells repeat hemoglobin in the morning and possible discharge holding anticoagulation therapy until resumed by primary care physician. [facility] Medical History Acute and chronic respiratory failure with hypoxia Alcoholism Anemia Atherosclerotic heart disease of [place] coronary artery without angina pectoris Atrial fibrillation and flutter CAD (coronary artery disease) COPD (chronic obstructive pulmonary disease) COVID Dyspnea Encounter for screening for COVID-19 Essential hypertension History of short term memory loss Hydrocele, bilateral Hyperlipemia Hypokalemia Lung nodule, multiple ELISHA (obstructive sleep apnea) Presence of stent in coronary artery (~05/01/18) Pulmonary HTN Suspected COVID-19 virus infection Type 2 diabetes mellitus Home Medications albuterol sulfate 2 puff INHALATION Q4H PRN PRN 06/24/15 [History Last Taken 07/24/18] atorvastatin 40 mg PO QHS 06/24/15 [History Last Taken 10/12/20] metformin 1,000 mg PO BIDCM 06/24/15 [History Last Taken 10/13/20] valsartan 320 mg PO DAILY 06/24/15 [History Last Taken 10/13/20] cholecalciferol (vitamin D3) 50 mcg (2,000 unit) tablet 2,000 unit PO DAILY 04/14/18 [History Last Taken 10/12/20] glipizide 5 mg tablet 5 mg PO BID tablet 04/14/18 [History Last Taken 10/13/20] nifedipine 90 mg tablet,extended release 90 mg PO DAILY 04/14/18 [History Last Taken 10/13/20] omega-3 fatty acids 1,000 mg capsule 2,000 mg PO BID cap 04/14/18 [History Last Taken 10/13/20] roflumilast 500 mcg tablet 500 mcg PO DAILY 04/14/18 [History Last Taken 10/12/20] tamsulosin 0.4 mg capsule 0.4 mg PO DAILY 04/14/18 [History Last Taken 10/12/20] vitamin B complex 1 tablet PO MOWEFR tablet 04/14/18 [History Last Taken 10/13/20] pantoprazole 20 mg PO DAILY #30 tablet 07/28/18 [Rx Last Taken 10/13/20] albuterol sulfate 2.5 mg INHALATION 4X/DAY PRN ml 10/15/18 [History Last Taken Unknown] fluticasone propionate 50 mcg/actuation nasal spray,suspension 1 spray INTRANASAL PRN PRN 10/15/18 [History Last Taken Unknown] montelukast 10 mg tablet 10 mg PO DAILY 10/15/18 [History Last Taken 10/13/20] torsemide 10 mg tablet 5 mg PO DAILY tablet 10/15/18 [History Last Taken 10/13/20] aspirin 81 mg tablet,delayed release 81 mg PO DAILY 04/22/19 [History Last Taken 10/12/20] ferrous gluconate 324 mg (37.5 mg iron) tablet 324 mg PO DAILY 10/25/20 [History Last Taken Unknown] gabapentin 100 mg capsule 100 mg PO .COMPLEX cap 10/25/20 [History Last Taken Unknown] magnesium oxide 400 mg PO DAILY 10/25/20 [History Last Taken Unknown] apixaban 5 mg PO BID #180 tab 02/06/21 [Rx Last Taken Unknown] mometasone 200 mcg/actuation HFA aerosol inhaler 2 puff INHALATION BID 05/08/21 [History Last Taken Unknown] tiotropium 2.5 mcg-olodaterol 2.5 mcg/actuation mist for inhalation 2 puff INHALATION Q24H 05/08/21 [History Last Taken Unknown] prednisone 5 mg tablet 5 mg PO Q OTHER DAY 08/01/21 [History Last Taken Unknown] sertraline 50 mg tablet 50 mg PO DAILY 08/01/21 [History Last Taken Unknown] metoprolol tartrate 50 mg tablet 25 mg PO BID #180 tab 10/16/21 [Rx Last Taken Unknown] Allergy/AdvReac Type Severity Reaction Status Date / Time doxycycline Allergy Severe Rash Verified 11/26/21 18:50 empagliflozin AdvReac Severe yeast Verified 11/26/21 18:50 [From Jardiance] infection lisinopril AdvReac Intermediate Cough Verified 11/26/21 18:50 Family History Father COPD (chronic obstructive pulmonary disease) Heart disease Mother CAD (coronary artery disease) Myocardial infarction CVA (cerebral vascular accident) Diabetes Brother CAD (coronary artery disease) Pacemaker Diabetes History of coronary artery bypass surgery Brother Brain aneurysm Surgical History History of cardiac catheterization History of hip replacement History of left heart catheterization (LHC) (~02/06/21) Presence of coronary angioplasty implant and graft (~05/01/18) Social History household members: spouse Smoking Status: Former smoker how long ago did patient quit smokin years ago, smoked since 14 years old. alcohol intake: former details: Quit in 1980 substance use type: does not use caffeine: Yes Type: coffee Number of servings: 2 ROS Constitutional Constitutional: Denies chills or fever(s) Eyes Eyes: Denies blurry vision ENT HEENT: Denies abnormal hearing Cardiovascular Cardiovascular: Denies chest pain Respiratory/Chest Respiratory/Chest: Reports cough and shortness of breath at rest Gastrointestinal Gastrointestinal: Denies abdominal pain Genitourinary Genitourinary: Denies dysuria Musculoskeletal Musculoskeletal: Denies back pain Integumentary Integumentary: Denies dry skin Neurologic Neurologic: Denies abnormal gait Hematologic/Lymphatic Hematologic/Lymphatic: Reports anemia Vital Signs Vital Signs Vital Signs: 11/26/21 18:50 11/26/21 19:49 11/26/21 20:32 Temperature 98.0 F Temperature Source Temporal Pulse Rate 66 66 Respiratory Rate 24 H 18 Respiratory Effort Short of Breath Respiratory Pattern Normal Blood Pressure 147/68 H Blood Pressure Mean 94 Pulse Ox 97 95 Oxygen Delivery Method Room Air Room Air 11/26/21 21:00 11/26/21 21:10 Temperature Temperature Source Pulse Rate 60 60 Respiratory Rate 16 16 Respiratory Effort Respiratory Pattern Blood Pressure 146/68 H Blood Pressure Mean 94 Pulse Ox 100 Oxygen Delivery Method Room Air Weight Weight: 230 lb Body Mass Index (BMI) 36.0 Physical Exam Const oriented x3 General Appearance: cooperative HEENT normocephalic and head/scalp atraumatic Eyes PERRL Neck supple Lymph Lymphatic: no lymphadenopathy noted Resp Auscultation: diminished lung sounds bilateral Cardio regular rhythm, S1 normal heart sound and S2 normal heart sound GI normal to inspection, nondistended, normoactive bowel sounds Extremity no clubbing, cyanosis or edema Skin General Skin Exam: turgor normal Neuro CN's II-XII intact bilaterally Psych affect normal Assessment & Plan Assessment/Plan (1) Acute on chronic anemia: (2) COPD exacerbation: (3) Hyperlipemia: QUALIFIERS: Hyperlipidemia type: unspecified Qualified Code(s): E78.5 - Hyperlipidemia, unspecified (4) Paroxysmal atrial fibrillation: (5) Presence of coronary angioplasty implant and graft: PLAN: 1 acute on chronic anemia secondary to presumed gastrointestinal bleed made worse after being on anticoagulation therapy?admit patient for observation type cross transfuse 2 units packed red blood cell repeat hemoglobin in the morning. 2. COPD exacerbation?DuoNeb INH every 4 hours and oxygen per protocol, presumed made worse by above anemia 3. Hyperlipidemia?continue statin therapy 4. DVT prophylaxis?SCDs Charges/Coding Visit Charges OBSV E&M: 64188 Initial observation care L2
[2021-11-27] VITALS (8 sets, daily range): BP systolic 149–170; BP diastolic 66–86; PULSE 60–85; RESP 16–20; TEMP 36.5–36.7; O2SAT 97–99
[2021-11-27 02:20] LABS: Bedside Glucose 128 mg/dL (74-106)
[2021-11-27 06:13] LABS: Absolute Lymphocyte Count 1.14 X10^3/uL (0.83-4.51); Absolute Neutrophil Count 4.6 X10^3/uL (2.0-7.7); Basophil# 0.04 X10^3/uL; Basophil% 0.6 % (0-1); Eosinophil# 0.15 X10^3/uL; Eosinophils% 2.3 % (0-5); Hematocrit 26.6 % (40-54); Hemoglobin 8.4 g/dL (13.0-16.5); Lymphocyte # 1.14 X10^3/ul (0.83-4.51); Lymphocyte % 17.8 % (19-41); Mean Corp Hgb Conc 31.6 g/dL (32-36); Mean Corpuscular Hgb 29.3 pg (27.0-32.0); Mean Corpuscular Volume 92.7 fL (80-94); Mean Platelet Vol. 9.3 fl (6.2-12.0); Monocyte# 0.47 X10^3/uL; Monocyte% 7.4 % (0-10); NRBC Flagged by Analyzer 0 % (0-5); Neutrophil # 4.55 X10^3/uL (2.7-7.7); Neutrophil % 71.3 % (47-70); Platelet Count 168 K/mm3 (150-450); RBC Distribution Width CV 16.8 % (11.6-14.6); RBC Distribution Width SD 56.8 fl (35.1-43.9); Red Blood Count 2.87 M/mm3 (4.6-6.2); White Blood Count 6.4 K/mm3 (4.4-11.0)
[2021-11-27 06:39] LABS: Anion Gap 8 (5-15); BUN 9 mg/dL (7-18); BUN/Creat Ratio 11.1 RATIO (10-20); Calcium,Total 8.8 mg/dL (8.5-10.1); Chloride 103 mmol/L (98-107); Creatinine, Serum 0.81 mg/dL (0.70-1.30); EST Glomerular Filtration Rate 100 mL/min (>60); Est Glom Filt Rate - Afr Amer 121 mL/min (>60); Estimated Creatinine Clearance 77.67 ml/min; Glucose 139 mg/dL (74-106); Potassium 3.7 mmol/L (3.5-5.1); Sodium Level 136 mmol/L (136-145)
[2021-11-27] MEDS: Ipratropium/Albuterol Sulfate 3 ML AMPUL.NEB INHALATION (07:39)
--- NOTE | 2021-11-27 07:42 | PCM.DC ---
Discharge Instructions Diet Discharge Diet: Low fat / Low cholesterol, 1800 Calorie Control Diet and 2000 mg Sodium Diet Activity Discharge Activity: Return to Normal Activity and May Not Drive Dressing / Incision Call your doctor if you observe: Fever of 101 or Higher, Coldness, Increased Pain, Numbness or Tingling, Change in Color, Inability to urinate, Inability to have a bowel movement, Shortness of breath, Dizziness, Fainting spells, Swelling in the ankles, Chest pain, Prolonged hiccupping, Increased palpitations (irregular heartbeat), Calf discomfort and Uncontrolled pain Follow Up Care Test Results: Test results from this visit will be discussed in further detail at your follow-up appointment, if applicable. Discharge Plan Admission Admit Date/Time: 11/26/21 21:21 Primary Reason for Your Visit: severe anemia, hypoxia, copd Attending Provider: Enrique Hawthorne Primary Care Provider: Umesh Orr Consulting Providers: Chad Fang Instructions Additional Instructions / Restrictions: Hold Eliquis until sees PCP/1 week Discharge Orders/Prescriptions Prescriptions: New pantoprazole [Protonix] 40 mg tablet,delayed release (DR/EC) 40 mg PO DAILY Qty: 30 RF: 2 ascorbic acid (vitamin C) 500 mg tablet 500 mg PO BID Qty: 60 RF: 0 Continued Daliresp 500 mcg tablet 500 mcg PO QPM RF: 0 omega-3 fatty acids [Fish Oil Concentrate] 1,000 mg capsule 2,000 mg PO BID RF: 0 glipizide 5 mg tablet 5 mg PO BID RF: 0 nifedipine 90 mg tablet extended release 90 mg PO DAILY RF: 0 tamsulosin 0.4 mg capsule 0.4 mg PO DAILY RF: 0 vitamin B complex [B Complex-Vitamin B12] tablet 1 tablet PO MOWEFR RF: 0 cholecalciferol (vitamin D3) 2,000 unit tablet 2,000 unit tablet 2,000 unit PO QPM RF: 0 fluticasone propionate [Allergy Relief (fluticasone)] 50 mcg/actuation spray,suspension 1 spray INTRANASAL PRN PRN (Reason: allergies) RF: 0 torsemide 10 mg tablet 5 mg PO DAILY RF: 0 montelukast 10 mg tablet 10 mg PO DAILY RF: 0 albuterol sulfate 2.5 mg /3 mL (0.083 %) solution for nebulization 2.5 mg INHALATION 4X/DAY PRN (Reason: Sob &/Or Wheezing) RF: 0 aspirin [Adult Aspirin Regimen] 81 mg tablet,delayed release (DR/EC) 81 mg PO QPM RF: 0 ferrous gluconate 324 mg (37.5 mg iron) tablet 324 mg PO QPM RF: 0 magnesium oxide 400 mg magnesium tablet 400 mg PO DAILY RF: 0 Asmanex HFA 200 mcg/actuation HFA aerosol inhaler 2 puff inhalation BID RF: 0 Stiolto Respimat 2.5-2.5 mcg/actuation mist 2 puff inhalation Q24H RF: 0 sertraline 50 mg tablet 50 mg PO DAILY RF: 0 atorvastatin 40 MG tablet 40 mg PO QHS RF: 0 metformin 1,000 MG tablet 1,000 mg PO BIDCM RF: 0 valsartan 320 MG tablet 320 mg PO DAILY RF: 0 albuterol sulfate 1 PUFF inhaler 2 puff INHALATION Q4H PRN PRN (Reason: Shortness Of Breath) RF: 0 gabapentin 100 mg capsule 100 mg PO .COMPLEX RF: 0 ascorbic acid (vitamin C) [Vitamin C] 500 mg Tablet 500 mg PO QPM RF: 0 clotrimazole 1 % Cream 1 applic TOPICAL BID PRN (Reason: feet) RF: 0 metoprolol tartrate 50 mg tablet 25 mg PO BID Qty: 180 RF: 3 Held apixaban 5 mg tablet 5 mg PO BID Qty: 180 RF: 4 Hold Instructions: Hold it until sees PCP/1 week Discontinued pantoprazole 20 MG tablet 20 mg PO DAILY Qty: 30 RF: 0 Referrals / Follow Up: Umesh Orr MD [Primary Care Provider] - Gianfranco Tavarez MD [STAFF PHYSICIAN] - Within 2 Weeks (COPD. Possible Bronchietasis) Disposition Disposition (needs filled in before D/C Order can be placed): Home, Self Care
--- NOTE | 2021-11-27 09:03 | DS.PCM_ITS ---
Providers Date of Admission: 11/26/21 Date of Discharge: 11/27/21 Primary Care Physician: Dr. Umesh Orr MD Reason For Visit: ANEMIA Diagnosis Discharge Diagnosis (1) Acute on chronic anemia: Status: Chronic Code(s): D64.9 - Anemia, unspecified (2) COPD exacerbation: Status: Chronic Code(s): J44.1 - Chronic obstructive pulmonary disease with (acute) exacerbation (3) Hyperlipemia: Status: Acute Code(s): E78.5 - Hyperlipidemia, unspecified Qualifiers: Hyperlipidemia type: unspecified Qualified Code(s): E78.5 - Hyperlipidemia, unspecified (4) Paroxysmal atrial fibrillation: Status: Acute Code(s): I48.0 - Paroxysmal atrial fibrillation (5) Presence of coronary angioplasty implant and graft: Status: Chronic Code(s): Z95.5 - Presence of coronary angioplasty implant and graft Medications at Discharge Home Medications albuterol sulfate 2 puff INHALATION Q4H PRN PRN 06/24/15 atorvastatin 40 mg PO QHS 06/24/15 metformin 1,000 mg PO BIDCM 06/24/15 valsartan 320 mg PO DAILY 06/24/15 cholecalciferol (vitamin D3) 50 mcg (2,000 unit) tablet 2,000 unit PO QPM 04/14/18 glipizide 5 mg tablet 5 mg PO BID tablet 04/14/18 nifedipine 90 mg tablet,extended release 90 mg PO DAILY 04/14/18 omega-3 fatty acids 1,000 mg capsule 2,000 mg PO BID cap 04/14/18 roflumilast 500 mcg tablet 500 mcg PO QPM 04/14/18 tamsulosin 0.4 mg capsule 0.4 mg PO DAILY 04/14/18 vitamin B complex 1 tablet PO MOWEFR tablet 04/14/18 albuterol sulfate 2.5 mg INHALATION 4X/DAY PRN ml 10/15/18 fluticasone propionate 50 mcg/actuation nasal spray,suspension 1 spray INTRANASAL PRN PRN 10/15/18 montelukast 10 mg tablet 10 mg PO DAILY 10/15/18 torsemide 10 mg tablet 5 mg PO DAILY tablet 10/15/18 aspirin 81 mg tablet,delayed release 81 mg PO QPM 04/22/19 ferrous gluconate 324 mg (37.5 mg iron) tablet 324 mg PO QPM 10/25/20 gabapentin 100 mg capsule 100 mg PO .COMPLEX cap 10/25/20 magnesium oxide 400 mg PO DAILY 10/25/20 apixaban 5 mg PO BID #180 tab 02/06/21 mometasone 200 mcg/actuation HFA aerosol inhaler 2 puff INHALATION BID 05/08/21 tiotropium 2.5 mcg-olodaterol 2.5 mcg/actuation mist for inhalation 2 puff INHALATION Q24H 05/08/21 sertraline 50 mg tablet 50 mg PO DAILY 08/01/21 metoprolol tartrate 50 mg tablet 25 mg PO BID #180 tab 10/16/21 ascorbic acid (vitamin C) 500 mg PO BID #60 tab 11/27/21 clotrimazole 1 applic TOPICAL BID PRN 11/27/21 pantoprazole [Protonix] 40 mg PO DAILY #30 tab 11/27/21 Hospital Course Summary of Care Provided Hospital Course: 71-year-old male with history of COPD on home oxygen admitted with acute on chronic shortness of breath, dyspnea at rest. On PCP office, patient's hemoglobin found to 7 and was sent to ED. Patient was admitted on [facility] floor. Patient has history of chronic GI bleed and had upper and lower GI endoscopy about 5 years ago and no cause was found. Patient also on Eliquis for A. fib which is being held. His further hospital course as described below 1.Acute on chronic anemia most probably due to slow GI blood loss: Stool for occult blood positive. Eliquis on hold. Patient hemodynamically blood pressure is elevated. Patient follows Dr. Juarez advised to follow-up in 1 to 2 weeks. Patient had 2 nights of blood transfusion and discharged on Protonix, ferrous sulfate and ascorbic acid. 2. COPD exacerbation: Patient and his states, patient shortness of breath is chronic and currently is on baseline. He has chronic cough and dyspnea on exertion. Patient wants to go home. Patient has inhaler and nebulization at home. Patient just completed prednisone about a month ago. I did not want to repeat prednisone because of slow GI bleed. Advised to follow-up with Dr. Damon in 2 weeks. COPD exacerbation resolved. 3. Hypertension, uncontrolled advised attendance with the medications. 4. Dyslipidemia: Continue statin therapy. 5. DVT prophylaxis: Pharmacological prophylaxis is contraindicated. Bilateral SCDs Discharge medication reconciliation done. Discharge follow-up instructions completed. Discharge process discussed with the patient and all questions were answered to patient's satisfaction. Total time spent, exact 35 minutes on discharge meds reconciliation, examination, coordination of care with nurses and ancillary staff, review of imaging and blood test and discussion with the patient on follow-up instructions. Physical Exam Narrative Seen and examined on the day of discharge. Patient has history of COPD and on home oxygen, being managed by Dr. Tavarez. Patient has advanced COPD. He has chronic wheezing and shortness of breath on exertion. No fever. Patient also has chronic cough which got little worse last few days along with sputum production. Blood pressure elevated. Physical exam General: Alert, Oriented x3, Cooperative HEENT: Atraumatic, PERRLA, EOMI, Normocephalic Oral: No Gingival or Mucosal Lesions/ Ulcerations Neck: Supple, No JVD, Negative Carotid Bruits Lungs: Air entry severely diminished bilaterally. Bilateral coarse crepitation and rhonchi. Cardiovascular: Regular rate, Regular Rhythm, Normal S1, Normal S2, No murmurs Abdomen: Bowel Sounds Present, Soft, Non Tender, Non-Distended : No renal angle tenderness. No suprapubic tenderness. Extremities: No edema, Capillary Refill Less than 3 Seconds Skin: No rashes, No breakdown Musculoskeletal: No Tenderness to Palpation of Joints or Extremities Neurological: Cranial nerves II-XII grossly intact, DTR 2+/4 and Symmetrical, Neuro grossly intact Psych/Mental Status: Normal Affect, Appropriate Weight / BMI Weight Weight: 214 lb 1.102 oz Body Mass Index (BMI) 33.5 ABG / Lab / Microbiology Data Result Diagrams: 11/27/21 05:48 11/27/21 05:48 Laboratory: Laboratory Results - last 24 hr 11/26/21 20:56: Blood Type O POSITIVE, Antibody Screen NEGATIVE, Crossmatch See Detail 11/26/21 20:56: Crossmatch See Detail 11/27/21 02:16: POC Glucose 128 H 11/27/21 05:48: WBC 6.4, RBC 2.87 L, Hgb 8.4 L, Hct 26.6 L, MCV 92.7, MCH 29.3, MCHC 31.6 L, RDW Std Deviation 56.8 H, RDW Coeff of Anthony 16.8 H, Plt Count 168, MPV 9.3, Immature Gran % (Auto) 0.600, Neut % (Auto) 71.3 H, Lymph % (Auto) 17.8 L, [place] % (Auto) 7.4, Eos % (Auto) 2.3, Baso % (Auto) 0.6, Absolute Neuts (auto) 4.6, Absolute Lymphs (auto) 1.14, Nucleated RBC % 0 11/27/21 05:48: Sodium 136, Potassium 3.7, Chloride 103, Carbon Dioxide 25.0, Anion Gap 8, BUN 9, Creatinine 0.81, Estim Creat Clear Calc 77.67, Est GFR (MDRD) Af Amer 121, Est GFR (MDRD) Non-Af 100, BUN/Creatinine Ratio 11.1, Glucose 139 H, Calcium 8.8 D/C Instructions Discharge Diet: Low fat / Low cholesterol, 1800 Calorie Control Diet and 2000 mg Sodium Diet Call your doctor if you observe: Fever of 101 or Higher, Coldness, Increased Pain, Numbness or Tingling, Change in Color, Inability to urinate, Inability to have a bowel movement, Shortness of breath, Dizziness, Fainting spells, Swelling in the ankles, Chest pain, Prolonged hiccupping, Increased palpitations (irregular heartbeat), Calf discomfort and Uncontrolled pain Meaningful Use Info Meaningful Use Diagnoses (Choose all that apply): None applicable Discharge Plan Admission Admit Date/Time: 11/26/21 21:21 Primary Reason for Your Visit: severe anemia, hypoxia, copd Attending Provider: Enrique Hawthorne Primary Care Provider: Umesh Orr Consulting Providers: Chad Fang Instructions Additional Instructions / Restrictions: Hold Eliquis until sees PCP/1 week Discharge Orders/Prescriptions Prescriptions: New pantoprazole [Protonix] 40 mg tablet,delayed release (DR/EC) 40 mg PO DAILY Qty: 30 RF: 2 ascorbic acid (vitamin C) 500 mg tablet 500 mg PO BID Qty: 60 RF: 0 Continued Daliresp 500 mcg tablet 500 mcg PO QPM RF: 0 omega-3 fatty acids [Fish Oil Concentrate] 1,000 mg capsule 2,000 mg PO BID RF: 0 glipizide 5 mg tablet 5 mg PO BID RF: 0 nifedipine 90 mg tablet extended release 90 mg PO DAILY RF: 0 tamsulosin 0.4 mg capsule 0.4 mg PO DAILY RF: 0 vitamin B complex [B Complex-Vitamin B12] tablet 1 tablet PO MOWEFR RF: 0 cholecalciferol (vitamin D3) 2,000 unit tablet 2,000 unit tablet 2,000 unit PO QPM RF: 0 fluticasone propionate [Allergy Relief (fluticasone)] 50 mcg/actuation spray,suspension 1 spray INTRANASAL PRN PRN (Reason: allergies) RF: 0 torsemide 10 mg tablet 5 mg PO DAILY RF: 0 montelukast 10 mg tablet 10 mg PO DAILY RF: 0 albuterol sulfate 2.5 mg /3 mL (0.083 %) solution for nebulization 2.5 mg INHALATION 4X/DAY PRN (Reason: Sob &/Or Wheezing) RF: 0 aspirin [Adult Aspirin Regimen] 81 mg tablet,delayed release (DR/EC) 81 mg PO QPM RF: 0 ferrous gluconate 324 mg (37.5 mg iron) tablet 324 mg PO QPM RF: 0 magnesium oxide 400 mg magnesium tablet 400 mg PO DAILY RF: 0 Asmanex HFA 200 mcg/actuation HFA aerosol inhaler 2 puff inhalation BID RF: 0 Stiolto Respimat 2.5-2.5 mcg/actuation mist 2 puff inhalation Q24H RF: 0 sertraline 50 mg tablet 50 mg PO DAILY RF: 0 atorvastatin 40 MG tablet 40 mg PO QHS RF: 0 metformin 1,000 MG tablet 1,000 mg PO BIDCM RF: 0 valsartan 320 MG tablet 320 mg PO DAILY RF: 0 albuterol sulfate 1 PUFF inhaler 2 puff INHALATION Q4H PRN PRN (Reason: Shortness Of Breath) RF: 0 gabapentin 100 mg capsule 100 mg PO .COMPLEX RF: 0 clotrimazole 1 % Cream 1 applic TOPICAL BID PRN (Reason: feet) RF: 0 metoprolol tartrate 50 mg tablet 25 mg PO BID Qty: 180 RF: 3 Held apixaban 5 mg tablet 5 mg PO BID Qty: 180 RF: 4 Hold Instructions: Hold it until sees PCP/1 week Discontinued pantoprazole 20 MG tablet 20 mg PO DAILY Qty: 30 RF: 0 ascorbic acid (vitamin C) [Vitamin C] 500 mg Tablet 500 mg PO QPM RF: 0 Referrals / Follow Up: Umesh Orr MD [Primary Care Provider] - Gianfranco Tavarez MD [STAFF PHYSICIAN] - Within 2 Weeks (COPD. Possible Bronchietasis) Disposition Disposition (needs filled in before D/C Order can be placed): Home, Self Care Charges/Coding Visit Charges OBSV E&M: 70478 Observation care discharge
== END 2021-11-27 10:48 | disposition home or self-care (01) ==
LOC: ED 21:12 → MS3 21:41
PROVIDERS: Admitting Provider Family Medicine; Emergency Provider Emergency Medicine; PCP Family Medicine; Visit Provider Internal Medicine
DX: J44.1 Chronic obstructive pulmonary disease with (acute) exacerbation (principal); J96.21 Acute and chronic respiratory failure with hypoxia; I48.0 Paroxysmal atrial fibrillation; E11.9 Type 2 diabetes mellitus without complications; E78.5 Hyperlipidemia, unspecified; Z79.84 Long term (current) use of oral hypoglycemic drugs; D64.9 Anemia, unspecified; I10 Essential (primary) hypertension; K92.2 Gastrointestinal hemorrhage, unspecified; Z79.82 Long term (current) use of aspirin; I25.10 Atherosclerotic heart disease of native coronary artery without angina pectoris; Z87.891 Personal history of nicotine dependence; Z79.899 Other long term (current) drug therapy; Z99.81 Dependence on supplemental oxygen; G47.33 Obstructive sleep apnea (adult) (pediatric); Z79.01 Long term (current) use of anticoagulants
CPT/HCPCS: 36415; 36430; 80048; 82274; 82962; 85025; 86644; 86850; 86900; 86901; 86920; 86922; 94640; 99218; 99284; P9016; A4216; G0378

== ENCOUNTER → 2021-11-26 | Outpatient (CLI) | payer MEDICARE, SELFPAY ==
[2018-05-01 14:21] VITALS: BMI 36.8
--- NOTE | 2021-11-26 15:50 | RAD_ITS ---
STUDY: X-RAY CHEST REASON FOR EXAM: Male, 71 years old. sob TECHNIQUE: XR Chest 2 Views COMPARISON: 10.28.21 FINDINGS: There is no demonstrated pleural abnormality. Normal size heart. Normal mediastinum and darryl. Normal visualized pulmonary arteries. There is atherosclerotic calcification of the aortic arch with tortuosity. There are diffuse degenerative changes of the visualized thoracic spine. There is degenerative osteoarthritis of the bilateral shoulders. There is no demonstrated abnormality of the visualized soft tissue structures of the upper abdomen. RAD/Chest PA and Lateral IMPRESSION: There are no acute findings. Electronically Signed: Roosevelt Durand MD at 19:24 EDT ,
[2021-11-26 17:45] LABS: Absolute Lymphocyte Count 1.28 X10^3/uL (0.83-4.51); Absolute Neutrophil Count 5.5 X10^3/uL (2.0-7.7); Basophil# 0.03 X10^3/uL; Basophil% 0.4 % (0-1); Eosinophil# 0.13 X10^3/uL; Eosinophils% 1.7 % (0-5); Hematocrit 23.5 % (40-54); Hemoglobin 7.4 g/dL (13.0-16.5); Lymphocyte # 1.28 X10^3/ul (0.83-4.51); Lymphocyte % 17.1 % (19-41); Mean Corp Hgb Conc 31.5 g/dL (32-36); Mean Corpuscular Hgb 30.6 pg (27.0-32.0); Mean Corpuscular Volume 97.1 fL (80-94); Mean Platelet Vol. 9.9 fl (6.2-12.0); Monocyte# 0.51 X10^3/uL; Monocyte% 6.8 % (0-10); NRBC Flagged by Analyzer 0 % (0-5); Neutrophil # 5.49 X10^3/uL (2.7-7.7); Neutrophil % 73.5 % (47-70); Platelet Count 219 K/mm3 (150-450); RBC Distribution Width CV 15.3 % (11.6-14.6); RBC Distribution Width SD 53.1 fl (35.1-43.9); Red Blood Count 2.42 M/mm3 (4.6-6.2); White Blood Count 7.5 K/mm3 (4.4-11.0)
[2021-11-26 17:54] LABS: Anion Gap 7 (5-15); BUN 9 mg/dL (7-18); BUN/Creat Ratio 9.5 RATIO (10-20); Calcium,Total 9.4 mg/dL (8.5-10.1); Chloride 100 mmol/L (98-107); Creatinine, Serum 0.95 mg/dL (0.70-1.30); EST Glomerular Filtration Rate 84 mL/min (>60); Est Glom Filt Rate - Afr Amer 101 mL/min (>60); Glucose 126 mg/dL (74-106); Potassium 3.8 mmol/L (3.5-5.1); Sodium Level 134 mmol/L (136-145)
[2021-11-26 18:04] LABS: D-Dimer Quantitative (DVT/PE) 0.29 FEU/ug/m (0.27-0.49)
[2021-11-26 18:44] LABS: BNP,B-Type NATRIURETIC PEPTIDE 110.3 pg/mL (0-100)
== END | disposition home or self-care (01) ==
LOC: MTRAD 15:48
PROVIDERS: PCP Family Medicine; Referring Provider Nurse Practitioner Family; Visit Provider Nurse Practitioner Family
DX: R06.02 Shortness of breath (principal)
CPT/HCPCS: 36415; 71046; 80048; 83880; 85025; 85379

== ENCOUNTER → 2021-12-03 | Outpatient (CLI) | payer OTHER, SELFPAY ==
[2018-05-01 14:21] VITALS: BMI 36.8
[2021-12-03 17:46] LABS: Absolute Lymphocyte Count 1.31 X10^3/uL (0.83-4.51); Absolute Neutrophil Count 4.3 X10^3/uL (2.0-7.7); Basophil# 0.04 X10^3/uL; Basophil% 0.6 % (0-1); Eosinophil# 0.12 X10^3/uL; Eosinophils% 1.9 % (0-5); Hemoglobin 10.2 g/dL (13.0-16.5); Lymphocyte # 1.31 X10^3/ul (0.83-4.51); Mean Corp Hgb Conc 31.9 g/dL (32-36); Mean Corpuscular Hgb 29.1 pg (27.0-32.0); Mean Corpuscular Volume 91.4 fL (80-94); Mean Platelet Vol. 9.6 fl (6.2-12.0); Monocyte# 0.45 X10^3/uL; Monocyte% 7.2 % (0-10); NRBC Flagged by Analyzer 0 % (0-5); Platelet Count 262 K/mm3 (150-450); RBC Distribution Width CV 15.9 % (11.6-14.6); RBC Distribution Width SD 52.3 fl (35.1-43.9); White Blood Count 6.2 K/mm3 (4.4-11.0)
== END | disposition home or self-care (01) ==
LOC: MFPLAB 15:02
PROVIDERS: Family Medicine; PCP Family Medicine; Visit Provider Family Medicine
DX: D64.9 Anemia, unspecified (principal)
CPT/HCPCS: 36415; 85025

== ENCOUNTER → 2022-01-01 | Outpatient (CLI) | payer MEDICARE, SELFPAY ==
[2018-05-01 14:21] VITALS: BMI 36.8
--- NOTE | 2022-01-01 15:40 | RAD_ITS ---
STUDY: XR Chest 2 Views 01/01/2022 3:39 PM REASON FOR EXAM: Male, 71 years old. CHEST PAIN Dyspnea, wheezing COMPARISON: 11/26/2021 TECHNIQUE: XR Chest 2 Views FINDINGS: There is no demonstrated pleural abnormality. Normal heart size. Normal mediastinum. Normal darryl. Prominent appearing increased interstitial lung markings. Normal visualized pulmonary arteries. There is atherosclerotic calcification of the aortic arch with tortuosity. There are diffuse degenerative changes of the visualized thoracic spine. There is degenerative osteoarthritis of the bilateral shoulders. There is no demonstrated abnormality of the visualized soft tissue structures of the upper abdomen. RAD/Chest PA and Lateral IMPRESSION: There are no acute findings. Electronically Signed: Roosevelt Durand MD at 16:40 EDT ,
[2022-01-01 16:27] LABS: Absolute Neutrophil Count 4.8 X10^3/uL (2.0-7.7); Basophil# 0.02 X10^3/uL; Basophil% 0.3 % (0-1); Eosinophil# 0.13 X10^3/uL; Eosinophils% 1.9 % (0-5); Hematocrit 33.6 % (40-54); Hemoglobin 11.2 g/dL (13.0-16.5); Mean Corp Hgb Conc 33.3 g/dL (32-36); Mean Corpuscular Hgb 29.2 pg (27.0-32.0); Mean Corpuscular Volume 87.7 fL (80-94); Mean Platelet Vol. 9.2 fl (6.2-12.0); Monocyte# 0.41 X10^3/uL; Monocyte% 5.9 % (0-10); NRBC Flagged by Analyzer 0 % (0-5); Neutrophil # 4.77 X10^3/uL (2.7-7.7); Neutrophil % 68.3 % (47-70); Platelet Count 238 K/mm3 (150-450); RBC Distribution Width CV 15.4 % (11.6-14.6); RBC Distribution Width SD 49.5 fl (35.1-43.9); Red Blood Count 3.83 M/mm3 (4.6-6.2)
[2022-01-01 17:20] LABS: Anion Gap 8 (5-15); BUN 11 mg/dL (7-18); BUN/Creat Ratio 11.6 RATIO (10-20); Calcium,Total 9.7 mg/dL (8.5-10.1); Chloride 97 mmol/L (98-107); Creatinine, Serum 0.95 mg/dL (0.70-1.30); EST Glomerular Filtration Rate 84 mL/min (>60); Est Glom Filt Rate - Afr Amer 101 mL/min (>60); Glucose 119 mg/dL (74-106); Potassium 3.7 mmol/L (3.5-5.1); Sodium Level 131 mmol/L (136-145)
[2022-01-01 18:09] LABS: BNP,B-Type NATRIURETIC PEPTIDE 29.3 pg/mL (0-100)
== END | disposition home or self-care (01) ==
PROVIDERS: PCP Family Medicine; Referring Provider Nurse Practitioner Gerontology; Visit Provider Nurse Practitioner Gerontology
DX: R06.00 Dyspnea, unspecified (principal); D64.9 Anemia, unspecified; R06.2 Wheezing
CPT/HCPCS: 36415; 71046; 80048; 83880; 85025

== ENCOUNTER → 2022-01-02 | Outpatient (CLI) | payer MEDICARE, SELFPAY ==
[2018-05-01 14:21] VITALS: BMI 36.8
== END | disposition home or self-care (01) ==
LOC: LABSPEC 09:55 → LAB 09:58 → LABSPEC 10:05
PROVIDERS: PCP Family Medicine; Visit Provider Nurse Practitioner Gerontology
DX: D64.9 Anemia, unspecified (principal)
CPT/HCPCS: 82274

== ENCOUNTER 2022-01-17 12:51 | Outpatient (RCR) | payer MEDICARE, SELFPAY ==
[2018-05-01 14:21] VITALS: BMI 36.8
[2022-01-17 15:10] LABS: Absolute Lymphocyte Count 1.48 X10^3/uL (0.83-4.51); Basophil# 0.04 X10^3/uL; Basophil% 0.6 % (0-1); Eosinophil# 0.09 X10^3/uL; Eosinophils% 1.3 % (0-5); Hematocrit 33.7 % (40-54); Hemoglobin 11.1 g/dL (13.0-16.5); Lymphocyte # 1.48 X10^3/ul (0.83-4.51); Lymphocyte % 20.8 % (19-41); Mean Corp Hgb Conc 32.9 g/dL (32-36); Mean Corpuscular Hgb 29.8 pg (27.0-32.0); Mean Corpuscular Volume 90.6 fL (80-94); Monocyte# 0.44 X10^3/uL; Monocyte% 6.2 % (0-10); NRBC Flagged by Analyzer 0 % (0-5); Neutrophil # 5.03 X10^3/uL (2.7-7.7); Neutrophil % 70.7 % (47-70); Platelet Count 259 K/mm3 (150-450); RBC Distribution Width CV 15.5 % (11.6-14.6); RBC Distribution Width SD 51.5 fl (35.1-43.9); Red Blood Count 3.72 M/mm3 (4.6-6.2); White Blood Count 7.1 K/mm3 (4.4-11.0)
[2022-01-17 15:34] LABS: Ferritin 16 ng/mL (26-388); Iron 57 ug/dL (65-175)
== END 2022-02-10 03:24 | disposition home or self-care (01) ==
LOC: MTLAB 12:51
PROVIDERS: PCP Family Medicine; Referring Provider Internal Medicine Gastroenterology; Visit Provider Internal Medicine Gastroenterology
DX: D50.9 Iron deficiency anemia, unspecified (principal)
CPT/HCPCS: 36415; 82728; 83540; 85025

== ENCOUNTER → 2022-02-01 | Outpatient (CLI) | payer MEDICARE, SELFPAY ==
[2018-05-01 14:21] VITALS: BMI 36.8
--- NOTE | 2022-02-01 09:49 | RAD_ITS ---
EXAM: XR LUMBOSACRAL SPINE, 4 OR 5 VIEWS CLINICAL INDICATION: disc degeneration TECHNIQUE: Frontal, lateral and bilateral oblique views of the lumbar spine. This report was created using [employer] report [employer] technology. COMPARISON: None. FINDINGS: VERTEBRAE: Unremarkable. Preserved vertebral body height. No fracture. No spondylolisthesis. Preservation of the normal lumbar lordosis. No significant facet arthropathy. DISC SPACES: There is bony neural neural foraminal stenosis at Narrowing at L3-4 and L5-S1 due to a degenerative disc bulge and bony hypertrophy. Multilevel degenerative change with disc space narrowing and osteophyte formation. GASTROINTESTINAL TRACT: Unremarkable as visualized. Included bowel gas pattern is non-obstructive. RAD/L/S Spine Min 4 Views IMPRESSION: 1. There is bony neural neural foraminal stenosis at Narrowing at L3-4 and L5-S1 due to a degenerative disc bulge and bony hypertrophy. 2. No acute osseous abnormalities the lumbar spine. There is multilevel degenerative changes with this space narrowing and bony neural foraminal narrowing. There are osteophytes at multiple levels. Electronically Signed: Brandon Conn MD at 2:55 EDT ,
== END | disposition home or self-care (01) ==
LOC: MTRAD 09:47
PROVIDERS: PCP Family Medicine; Referring Provider Family Medicine; Visit Provider Family Medicine
DX: M51.36 Other intervertebral disc degeneration, lumbar region (principal)
CPT/HCPCS: 72110

== ENCOUNTER → 2022-02-26 | Outpatient (CLI) | payer MEDICARE, SELFPAY ==
[2018-05-01 14:21] VITALS: BMI 36.8
== END | disposition home or self-care (01) ==
LOC: LABSPEC 02-27 09:33
PROVIDERS: PCP Family Medicine; Referring Provider Family Medicine; Visit Provider Family Medicine
DX: R32 Unspecified urinary incontinence (principal)
CPT/HCPCS: 87086; 87088; 87186

== ENCOUNTER → 2022-02-27 | Outpatient (CLI) | payer MEDICARE, SELFPAY ==
[2018-05-01 14:21] VITALS: BMI 36.8
[2022-02-27 15:19] LABS: Absolute Lymphocyte Count 1.03 X10^3/uL (0.83-4.51); Absolute Neutrophil Count 13.7 X10^3/uL (2.0-7.7); Basophil# 0.03 X10^3/uL; Basophil% 0.2 % (0-1); Eosinophil# 0.01 X10^3/uL; Eosinophils% 0.1 % (0-5); Hematocrit 29.2 % (40-54); Hemoglobin 9.7 g/dL (13.0-16.5); Lymphocyte # 1.03 X10^3/ul (0.83-4.51); Lymphocyte % 6.4 % (19-41); Mean Corp Hgb Conc 33.2 g/dL (32-36); Mean Corpuscular Hgb 30.9 pg (27.0-32.0); Monocyte# 1.22 X10^3/uL; Monocyte% 7.6 % (0-10); NRBC Flagged by Analyzer 0 % (0-5); Neutrophil # 13.73 X10^3/uL (2.7-7.7); Platelet Count 213 K/mm3 (150-450); RBC Distribution Width CV 16.4 % (11.6-14.6); RBC Distribution Width SD 54.8 fl (35.1-43.9); Red Blood Count 3.14 M/mm3 (4.6-6.2); White Blood Count 16.1 K/mm3 (4.4-11.0)
[2022-02-27 15:35] LABS: BNP,B-Type NATRIURETIC PEPTIDE 151.5 pg/mL (0-100)
[2022-02-27 15:47] LABS: Anion Gap 10 (5-15); BUN 9 mg/dL (7-18); BUN/Creat Ratio 9.1 RATIO (10-20); Calcium,Total 8.8 mg/dL (8.5-10.1); Chloride 98 mmol/L (98-107); Creatinine, Serum 0.99 mg/dL (0.70-1.30); EST Glomerular Filtration Rate 80 mL/min (>60); Est Glom Filt Rate - Afr Amer 96 mL/min (>60); Glucose 131 mg/dL (74-106); Potassium 3.5 mmol/L (3.5-5.1); Sodium Level 132 mmol/L (136-145); Thyroid Stim Hormone (TSH) 0.81 uIU/mL (0.358-3.74)
== END | disposition home or self-care (01) ==
PROVIDERS: PCP Family Medicine; Visit Provider Family Medicine
DX: I50.9 Heart failure, unspecified (principal)
CPT/HCPCS: 36415; 80048; 83880; 84443; 85025

== ENCOUNTER → 2022-02-28 | Outpatient (CLI) | payer MEDICARE, SELFPAY ==
[2018-05-01 14:21] VITALS: BMI 36.8
--- NOTE | 2022-02-28 09:47 | RAD_ITS ---
INDICATION: eleveated wbc EXAMINATION/TECHNIQUE: X-RAY - XR Chest 2 Views COMPARISON: CT chest 10/25/2021 and chest x-ray 01/01/2022. FINDINGS: LINES/DEVICES: None. LUNGS: Symmetric normal lung volumes. No airspace opacity or abnormal interstitial pattern. No nodule or mass. No pleural effusion or pneumothorax. MEDIASTINUM AND CARDIOVASCULAR STRUCTURES: Normal size and contour of the cardiomediastinal silhouette. No evidence of pulmonary vascular congestion. BONES AND SOFT TISSUES: No fracture or focal osseous lesion. Degenerative endplate changes spine. RAD/Chest PA and Lateral IMPRESSION: 1. No radiographic evidence of acute cardiopulmonary disease. Electronically Signed: Osmany Murphy DO at 0:07 EDT ,
[2022-02-28 12:19] LABS: Platelet Count 206 K/mm3 (150-450); RET-HE 30.9 pg (30-35); Reticulocyte Count 2.96 % (0.5-1.5)
[2022-02-28 12:47] LABS: Ferritin 94 ng/mL (26-388); Iron 16 ug/dL (65-175); Iron Binding Capacity,Total 290 ug/dL (250-450); PERCENT IRON SATURATION 5.5 % (15.0-55.0)
== END | disposition home or self-care (01) ==
LOC: MTLAB 09:47
PROVIDERS: PCP Family Medicine; Referring Provider Family Medicine; Visit Provider Family Medicine
DX: D72.829 Elevated white blood cell count, unspecified (principal); D64.9 Anemia, unspecified
CPT/HCPCS: 36415; 71046; 82728; 83540; 83550; 85045

== ENCOUNTER → 2022-03-01 | Outpatient (CLI) | payer MEDICARE, SELFPAY ==
[2018-05-01 14:21] VITALS: BMI 36.8
== END | disposition home or self-care (01) ==
LOC: MTLAB 13:27
PROVIDERS: PCP Family Medicine; Referring Provider Family Medicine; Visit Provider Family Medicine
DX: D64.9 Anemia, unspecified (principal)
CPT/HCPCS: 36415; 86850; 86900; 86901

== ENCOUNTER → 2022-03-15 | Outpatient (CLI) | payer MEDICARE, SELFPAY ==
[2018-05-01 14:21] VITALS: BMI 36.8
[2022-03-15 12:52] VITALS: BP 140/60; PULSE 56; RESP 16; TEMP 36.3; O2SAT 96; BMI 37.9
[2022-03-15] MEDS: 0.9% NaCl Peripheral Flush Adult/Peds IV (12:58)
[2022-03-15] MEDS: 0.9% NaCl IVPB Med Flush (250 mL) 15 ML IV (12:59)
[2022-03-15 14:20] VITALS: BP 136/57; PULSE 57; TEMP 36.3; O2SAT 92
== END | disposition home or self-care (01) ==
PROVIDERS: PCP Family Medicine; Referring Provider Family Medicine; Visit Provider Family Medicine
DX: D50.9 Iron deficiency anemia, unspecified (principal)
CPT/HCPCS: 96365; J1756; J7050; A4216

== ENCOUNTER → 2022-03-19 | Outpatient (CLI) | payer MEDICARE, SELFPAY ==
[2018-05-01 14:21] VITALS: BMI 36.8
[2022-03-19 12:59] VITALS: BP 123/60; PULSE 54; RESP 16; TEMP 36.3; O2SAT 96; BMI 37.9
[2022-03-19] MEDS: 0.9% NaCl Peripheral Flush Adult/Peds IV (13:08)
[2022-03-19] MEDS: 0.9% NaCl IVPB Med Flush (250 mL) 15 ML IV (13:09)
== END | disposition home or self-care (01) ==
LOC: MEDOUTP 12:49
PROVIDERS: PCP Family Medicine; Referring Provider Family Medicine; Visit Provider Family Medicine
DX: D50.9 Iron deficiency anemia, unspecified (principal)
CPT/HCPCS: 96365; J1756; J7050; A4216

== ENCOUNTER → 2022-03-22 | Outpatient (CLI) | payer MEDICARE, SELFPAY ==
[2018-05-01 14:21] VITALS: BMI 36.8
[2022-03-22 12:58] VITALS: BP 131/59; PULSE 53; RESP 16; TEMP 36; O2SAT 95
[2022-03-22] MEDS: 0.9% NaCl IVPB Med Flush (250 mL) 15 ML IV (12:59)
[2022-03-22] MEDS: 0.9% NaCl Peripheral Flush Adult/Peds IV (13:04)
[2022-03-22 14:02] VITALS: BP 130/66; PULSE 51
== END | disposition home or self-care (01) ==
LOC: MEDOUTP 12:32
PROVIDERS: PCP Family Medicine; Referring Provider Family Medicine; Visit Provider Family Medicine
DX: D50.9 Iron deficiency anemia, unspecified (principal)
CPT/HCPCS: 96365; J1756; J7050; A4216

== ENCOUNTER → 2022-03-26 | Outpatient (CLI) | payer MEDICARE, SELFPAY ==
[2018-05-01 14:21] VITALS: BMI 36.8
[2022-03-26 12:46] VITALS: BP 177/60; PULSE 58; RESP 16; TEMP 36.2; O2SAT 97; BMI 33.4
[2022-03-26] MEDS: 0.9% NaCl Peripheral Flush Adult/Peds IV (12:48)
[2022-03-26] MEDS: 0.9% NaCl IVPB Med Flush (250 mL) 15 ML IV (12:59)
[2022-03-26 13:35] VITALS: BP 139/61; PULSE 55; RESP 16; TEMP 36.3; O2SAT 94
== END | disposition home or self-care (01) ==
LOC: MEDOUTP 12:38
PROVIDERS: PCP Family Medicine; Referring Provider Family Medicine; Visit Provider Family Medicine
DX: D50.9 Iron deficiency anemia, unspecified (principal)
CPT/HCPCS: 96365; J1756; J7050; A4216

== ENCOUNTER → 2022-03-28 | Outpatient (CLI) | payer MEDICARE, SELFPAY ==
[2018-05-01 14:21] VITALS: BMI 36.8
[2022-03-28 11:36] VITALS: BP 141/60; PULSE 56; RESP 18; O2SAT 92; BMI 33.4
[2022-03-28] MEDS: 0.9% NaCl Peripheral Flush Adult/Peds IV (11:38)
[2022-03-28] MEDS: 0.9% NaCl IVPB Med Flush (250 mL) 15 ML IV (11:44)
== END | disposition home or self-care (01) ==
LOC: MEDOUTP 11:23
PROVIDERS: PCP Family Medicine; Referring Provider Family Medicine; Visit Provider Family Medicine
DX: D50.9 Iron deficiency anemia, unspecified (principal)
CPT/HCPCS: 96365; J1756; J7050; A4216

== ENCOUNTER → 2022-05-15 | Outpatient (CLI) | payer MEDICARE, SELFPAY ==
[2018-05-01 14:21] VITALS: BMI 36.8
[2022-05-15 11:07] LABS: AST(SGOT) 10 U/L (15-37); Alanine Aminotransfer ALT/SGPT 19 U/L (16-61); Albumin, Serum 4.1 g/dL (3.2-5.0); Alkaline Phosphatase 88 U/L (45-117); Bilirubin, Direct 0.16 mg/dL (0.00-0.30); Cholesterol 95 mg/dL (200); Globulin 3.4 g/dL (2.2-4.2); High Density Lipoprotein 37 mg/dL; Protein, Total 7.5 g/dL (6.4-8.2); Triglycerides 140 mg/dL; Very Low Density Lipoprotein 28 mg/dL (5-40)
== END | disposition home or self-care (01) ==
PROVIDERS: PCP Family Medicine; Referring Provider Internal Medicine Cardiovascular Disease; Visit Provider Internal Medicine Cardiovascular Disease
DX: E78.00 Pure hypercholesterolemia, unspecified (principal); I48.91 Unspecified atrial fibrillation; I48.92 Unspecified atrial flutter
CPT/HCPCS: 36415; 80061; 80076

== ENCOUNTER → 2022-05-18 | Outpatient (CLI) | payer MEDICARE, SELFPAY ==
[2018-05-01 14:21] VITALS: BMI 36.8
--- NOTE | 2022-05-18 07:50 | CT_ITS ---
INDICATION: COPD EXAMINATION: CT CHEST WITHOUT CONTRAST - CT Chest W/O Contrast Injection TECHNIQUE: Helically acquired images were obtained of the chest. A radiation dose optimization technique was used for this scan. IV Contrast dosage and agent: None. COMPARISON: None. FINDINGS: LUNGS, PLEURA AND LARGE AIRWAYS: Moderate centrilobular emphysema with mild central bronchiectatic changes. No focal infiltrate is seen. Spiculated 1.1 x 0.8 x 0.7 cm lesion in the anterior segment of the right upper lobe. Malignancy cannot be excluded. No pleural effusion or thickening. No pneumothorax. THYROID: No thyroid lesions. HEART AND PERICARDIUM: Heart size is normal. No pericardial effusion. CORONARY ARTERIES: Coronary artery calcification are present. VESSELS: Atherosclerotic calcifications of the thoracic aorta without evidence of aneurysm. MEDIASTINUM AND BONNIE: No mediastinal or hilar adenopathy. Small normal size nodes. Esophagus is unremarkable. No hiatal hernia. UPPER ABDOMEN: Probable liver cysts partially visualized on this exam. No demonstrated acute process. BONES: Mild degenerative changes in the spine. CT/Chest without Contrast IMPRESSION: Small spiculated right upper lobe lesion. Malignancy cannot be excluded. Correlation with PET scan is recommended. Moderate centrilobular emphysema and COPD changes. Otherwise no focal acute infiltrates or pleural effusions. Electronically Signed: Yoni Luna MD at 13:00 EDT ,
== END | disposition home or self-care (01) ==
LOC: CT 07:47
PROVIDERS: PCP Family Medicine; Referring Provider Internal Medicine Pulmonary Disease; Visit Provider Internal Medicine Pulmonary Disease
DX: J44.9 Chronic obstructive pulmonary disease, unspecified (principal); R09.02 Hypoxemia; R91.8 Other nonspecific abnormal finding of lung field
CPT/HCPCS: 71250

== ENCOUNTER → 2022-05-21 | Outpatient (CLI) | payer MEDICARE, SELFPAY ==
[2018-05-01 14:21] VITALS: BMI 36.8
== END | disposition home or self-care (01) ==
PROVIDERS: PCP Family Medicine; Referring Provider Internal Medicine Cardiovascular Disease; Visit Provider Internal Medicine Cardiovascular Disease
DX: I48.91 Unspecified atrial fibrillation (principal); I48.92 Unspecified atrial flutter; D64.9 Anemia, unspecified
CPT/HCPCS: 36415; 82728; 83540; 85027; 85045; 93225; 93226

== ENCOUNTER → 2022-05-21 | Outpatient (CLI) | payer MEDICARE, SELFPAY ==
[2018-05-01 14:21] VITALS: BMI 36.8
[2022-05-21 12:58] LABS: Hematocrit 35.2 % (40-54); Mean Corp Hgb Conc 34.1 g/dL (32-36); Mean Corpuscular Hgb 32.5 pg (27.0-32.0); Mean Corpuscular Volume 95.4 fL (80-94); Mean Platelet Vol. 9.8 fl (6.2-12.0); Platelet Count 245 K/mm3 (150-450); RBC Distribution Width CV 13.1 % (11.6-14.6); RBC Distribution Width SD 45.4 fl (35.1-43.9); RET-HE 36.3 pg (30-35); Red Blood Count 3.69 M/mm3 (4.6-6.2); Reticulocyte Count 2.82 % (0.5-1.5); White Blood Count 6.8 K/mm3 (4.4-11.0)
[2022-05-21 13:06] LABS: Ferritin 65 ng/mL (26-388); Iron 88 ug/dL (65-175)
== END | disposition home or self-care (01) ==
LOC: MFPLAB 10:53
PROVIDERS: PCP Family Medicine; Visit Provider Family Medicine
DX: Z00.00 Encounter for general adult medical examination without abnormal findings (principal)
CPT/HCPCS: 36415; 82728; 83540; 85027; 85045

== ENCOUNTER → 2022-05-31 | Outpatient (CLI) | payer MEDICARE, SELFPAY ==
[2018-05-01 14:21] VITALS: BMI 36.8
--- NOTE | 2022-05-31 10:30 | RAD_ITS ---
INDICATION: Dyspnea. Pulmonary nodule on recent chest CT. EXAMINATION: Frontal and lateral views of the chest. COMPARISON: Chest x-ray from February 28, 2022. Chest CT from May 18, 2022. FINDINGS: Frontal and lateral views of the chest were obtained. Hyperinflation. Spiculated nodule in the right upper lobe described in the chest CT report is faintly visualized. The cardiac silhouette is not enlarged. No confluent airspace disease. No pleural effusion or pneumothorax. RAD/Chest PA and Lateral IMPRESSION: COPD. The spiculated nodule identified on the recent CT is faintly visualized in the right upper lobe. Correlation with PET/CT is recommended as previously described. Electronically Signed: Blaze Ortega MD at 6:52 EST ,
== END | disposition home or self-care (01) ==
LOC: MTRAD 10:28
PROVIDERS: PCP Family Medicine; Referring Provider Internal Medicine Pulmonary Disease; Visit Provider Internal Medicine Pulmonary Disease
DX: R91.8 Other nonspecific abnormal finding of lung field (principal); R06.00 Dyspnea, unspecified
CPT/HCPCS: 71046

== ENCOUNTER → 2022-06-15 | Outpatient (CLI) | payer MEDICARE, SELFPAY ==
[2018-05-01 14:21] VITALS: BMI 36.8
== END | disposition home or self-care (01) ==
LOC: LABSPEC 11:31
PROVIDERS: PCP Family Medicine; Referring Provider Internal Medicine Pulmonary Disease; Visit Provider Internal Medicine Pulmonary Disease
DX: R05.9 Cough, unspecified (principal)
CPT/HCPCS: 87070; 87077; 87205

== ENCOUNTER → 2022-06-26 | Outpatient (CLI) | payer MEDICARE, SELFPAY ==
[2018-05-01 14:21] VITALS: BMI 36.8
--- NOTE | 2022-06-26 | PET_ITS ---
EXAMINATION: FDG PET-CT INDICATIONS: A 72-year-old male with history of pulmonary nodularity. COMPARISON EXAMINATION: None available TECHNIQUE: Following the intravenous administration of 13.56 mCi of F-18 deoxyglucose via the right hand, multiplanar image acquisitions of the neck, chest, abdomen and pelvis to level of mid thigh, obtained at one hour post radiopharmaceutical administration contemporaneously interpreted with the current CT of the neck, chest, abdomen and pelvis, to level of mid thigh, dated 06/26/22 via coregistration reveals: BLOOD GLUCOSE LEVEL:?? 153 mg/dl?HEIGHT:?65 inches?WEIGHT: 218 lbs. FINDINGS: Head/Neck: There is no evidence of abnormal increased glucose metabolism in the pharyngeal mucosal space, parapharyngeal space, bilateral-lateral and anterior neck, hypopharynx and distribution of the laryngeal structures. The visualized portion of the cerebral cortical-subcortical structures demonstrate symmetric and preserved glucose metabolism. CHEST: There is no quantitative scintigraphic evidence of abnormal increased glucose metabolism within the context of the bilateral hemithorax pulmonary parenchyma, right and left hemithorax pleural interface, mediastinal structures and right-left thoracic perihilum. Pertinent chest CT findings are as follows. Emphysematous changes are defined in the bilateral upper lung zones. There is no evidence of abnormal increased tracer uptake within the context of the bilateral lung zones. There is atherosclerotic calcification defined in the thoracic aorta without evidence of dilatation-aneurysm formation. Coronary arterial calcification is observed. Bilateral axillary soft tissue densities with fatty hilus are non-glucose avid. There is visualization of the proximal-distal esophagus consistent with physiologic tracer distribution or activated leukocytes associated with an inflammatory process-esophagitis. Abdomen/Pelvis: Normal physiologic distribution of the radiopharmaceutical is apparent in the hepatic and splenic parenchyma, both renal units, bladder and visualized intestinal tract. Diffuse radiopharmaceutical concentration is noted in all four quadrants of the abdomen and pelvis. Pertinent abdomen and pelvis CT findings are as follows. Beam hardening artifact precludes accurate assessment of lower pelvic CT acquisition secondary to the right hip arthroplasty. There is atherosclerotic calcification defined in the abdominal aorta without evidence of dilatation-aneurysm formation. Abdominal and pelvic arterial calcification are observed. Fat containing bilateral inguinal hernias are noted. Right and left inguinal soft tissue densities are non-glucose avid. Skeletal: Degenerative changes are noted in the cervical, thoracic and lumbar spine without evidence of increased radiopharmaceutical concentration. There are no well-defined sclerotic-lytic changes manifest on review of the appendicular-axial skeletal structures. PET/PET/CT Tumor Base -Thigh Init IMPRESSION: 1. NEGATIVE EXAMINATION. There is no definitive quantitative scintigraphic evidence of viable neoplasm. 2. Meticulous attention paid to the bilateral hemithorax pulmonary parenchyma demonstrates no evidence of abnormal increased tracer uptake indicative of viable neoplasia. 3. Anatomic stability may be ensured in the non-glucose avid bilateral hemithorax pulmonary parenchymal densities with repeat FDG PET-CT imaging and/or CT of the chest in 3-6 months if clinically indicated. (Grace, Seminars in Thoracic and Cardiovascular Surgery 14:292, 2002). Electronic Signature Torsten Zepeda D.O. Accurate Quantification of SUVs for this report are calculated using the exclusive [employer] Technology. ([place]. Patent No. [id number] B2 [phone] [place] patent [id number] [phone]). Standardization and correction of the FDG SUV metric via [employer] technology allow for vendor non-specific objective quantitative examination comparison and optimization of the sensitivity and specificity of the FDG PET-CT examination. Electronically Signed: Torsten Zepeda, at 23:01 EST ,
== END | disposition home or self-care (01) ==
PROVIDERS: PCP Family Medicine; Referring Provider Internal Medicine Pulmonary Disease; Visit Provider Internal Medicine Pulmonary Disease
DX: R91.8 Other nonspecific abnormal finding of lung field (principal)
CPT/HCPCS: 78815; A9552

== ENCOUNTER → 2022-07-09 | Outpatient (CLI) | payer MEDICARE, SELFPAY ==
[2018-05-01 14:21] VITALS: BMI 36.8
--- NOTE | 2022-07-09 16:24 | RAD_ITS ---
INDICATION: Shortness of breath, fever EXAMINATION/TECHNIQUE: X-RAY - XR Chest 2 Views COMPARISON: 05/31/2022 FINDINGS: LINES/DEVICES: None. LUNGS: Similar bilateral lower lung atelectasis. No focal consolidation pleural effusion. MEDIASTINUM AND CARDIOVASCULAR STRUCTURES: Cardiac silhouette not enlarged. Central airways and mediastinal contour are unremarkable. BONES AND SOFT TISSUES: Unremarkable. RAD/Chest PA and Lateral IMPRESSION: Bilateral lower lung atelectasis. Electronically Signed: Chad Madden MD at 20:28 EST ,
== END | disposition home or self-care (01) ==
LOC: MTRAD 16:18
PROVIDERS: PCP Family Medicine; Referring Provider Nurse Practitioner Family; Visit Provider Nurse Practitioner Family
DX: R06.02 Shortness of breath (principal); R50.9 Fever, unspecified
CPT/HCPCS: 71046

== ENCOUNTER 2022-07-10 11:34 | Emergency (ER) | payer MEDICARE, SELFPAY ==
[2018-05-01 14:21] VITALS: BMI 36.8
[2022-07-10 11:35] VITALS: BP 161/56; PULSE 92; RESP 24; TEMP 36.6; O2SAT 97; BMI 33.9
--- NOTE | 2022-07-10 12:07 | EDS_ITS ---
HPI History of Present Illness Chief Complaint: Shortness of Breath Informant: patient and spouse/S.O. Onset/Context/Timing Onset: Days (2-3) Context: gradual Timing: Continuous Quality: Positive for Wheezing Current Severity: Moderate Maximum Severity: Moderate Worsened by: Exertion and Coughing Relieved by: Rest Associated Symptoms cough Chest Pain: Positive for None Narrative Narrative: History limited on this patient due to dementia and increased confusion since he has been hypoxic for the last hours to a day. provides most of the history stating he has a history of COPD, he has had a new illness with coughing no fevers over the past couple days, increased shortness of breath/wheezing. Watching oxygen levels at home, down to the mid 80s. He has oxygen at home, he uses 2-3 L as needed and is not on it all the time. Sees Dr. Tavarez but not in right now, had a visit with nurse practitioner at PCPs office yesterday, had a chest x-ray obtained, I am reviewing the radiologist report which says no consolidation or pleural effusion, bilateral lower lung atelectasis, and was treated with no prescriptions such as antibiotics or steroids. The last time he was on these was about 1 month ago. He did have a rapid COVID and influenza test yesterday that were negative. He is vaccinated against COVID. [facility] Medical History Acute and chronic respiratory failure with hypoxia Acute on chronic anemia Alcoholism Anemia Atherosclerotic heart disease of [place] coronary artery without angina pectoris Atrial fibrillation Atrial fibrillation and flutter BiPAP (biphasic positive airway pressure) dependence CAD (coronary artery disease) COPD (chronic obstructive pulmonary disease) COPD exacerbation COVID Diabetes Dyspnea Encounter for screening for COVID-19 Essential hypertension Former smoker GERD (gastroesophageal reflux disease) GI bleed History of GI bleed History of short term memory loss Hydrocele, bilateral Hyperlipemia Hypokalemia Lung nodule, multiple On home oxygen therapy ELISHA (obstructive sleep apnea) Paroxysmal atrial fibrillation Presence of stent in coronary artery (~05/01/18) Pulmonary HTN Sleep apnea Suspected COVID-19 virus infection Type 2 diabetes mellitus Home Medications albuterol sulfate 90 mcg/actuation aerosol inhaler 2 puff inhalation Q4H PRN PRN Shortness Of Breath 06/24/15 [History Last Taken 07/24/18] atorvastatin 40 mg tablet 40 mg PO QHS Cholesterol 06/24/15 [History Last Taken 10/12/20] metformin 1,000 mg tablet 1,000 mg PO BIDCM Diabetes 06/24/15 [History Last Taken 10/13/20] valsartan 320 mg tablet 320 mg PO DAILY BP 06/24/15 [History Last Taken 10/13/20] cholecalciferol (vitamin D3) 50 mcg (2,000 unit) tablet 2,000 unit PO QPM vitamin 04/14/18 [History Last Taken 10/12/20] glipizide 5 mg tablet 5 mg PO BID Diabetes 04/14/18 [History Last Taken 10/13/20] omega-3 fatty acids 1,000 mg capsule (Fish Oil Concentrate) 2,000 mg PO BID Heart health 04/14/18 [History Last Taken 10/13/20] roflumilast 500 mcg tablet (Daliresp) 500 mcg PO QPM COPD 04/14/18 [History Last Taken 10/12/20] tamsulosin 0.4 mg capsule 0.4 mg PO DAILY Prostate 04/14/18 [History Last Taken 10/12/20] albuterol sulfate 2.5 mg/3 mL (0.083 %) solution for nebulization 2.5 mg inhalation 4X/DAY PRN Sob &/Or Wheezing 10/15/18 [History Last Taken Unknown] montelukast 10 mg tablet 10 mg PO DAILY asthma 10/15/18 [History Last Taken 10/13/20] torsemide 10 mg tablet 5 mg PO DAILY diuretic 10/15/18 [History Last Taken 10/13/20] magnesium oxide 400 mg PO DAILY 10/25/20 [History Last Taken Unknown] apixaban 5 mg tablet 5 mg PO BID #180 tabs 02/06/21 [Rx Last Taken Unknown] mometasone 200 mcg/actuation HFA aerosol inhaler (Asmanex HFA) 2 puff inhalation BID 05/08/21 [History Last Taken Unknown] tiotropium 2.5 mcg-olodaterol 2.5 mcg/actuation mist for inhalation (Stiolto Respimat) 2 puff inhalation Q24H copd 05/08/21 [History Last Taken Unknown] sertraline 50 mg tablet 50 mg PO DAILY 08/01/21 [History Last Taken Unknown] ascorbic acid (vitamin C) 500 mg tablet 500 mg PO BID #60 tabs 11/27/21 [Rx Last Taken Unknown] clotrimazole 1 % topical cream 1 applic topical BID PRN feet 11/27/21 [History Last Taken Unknown] pantoprazole 40 mg tablet,delayed release (Protonix) 40 mg PO DAILY #30 tabs 11/27/21 [Rx Last Taken Unknown] ferrous gluconate 324 mg (37.5 mg iron) tablet 324 mg PO BID 01/01/22 [History Last Taken Unknown] amlodipine 5 mg tablet 5 mg PO DAILY #30 tabs 02/05/22 [Rx Last Taken Unknown] nifedipine 90 mg tablet,extended release 90 mg PO DAILY 03/15/22 [History Last Taken Unknown] tramadol 50 mg tablet 50 mg PO BID PRN Pain 03/15/22 [History Last Taken Unknown] acetaminophen 650 mg tablet,extended release 1,300 mg PO Q12H 05/08/22 [History Last Taken Unknown] gabapentin 300 mg capsule 300 mg PO TID 05/08/22 [History Last Taken Unknown] metoprolol tartrate 25 mg tablet 25 mg PO BID #180 tabs 05/09/22 [Rx Last Taken Unknown] cefdinir 300 mg capsule 300 mg PO BID #20 caps 07/10/22 [Rx Last Taken Unknown] prednisone 10 mg tablet 10 mg PO UD #23 tabs 07/10/22 [Rx Last Taken Unknown] Allergy/AdvReac Type Severity Reaction Status Date / Time doxycycline Allergy Severe Rash Verified 07/10/22 11:34 empagliflozin AdvReac Severe yeast Verified 07/10/22 11:34 [From Jardiance] infection lisinopril AdvReac Intermediate Cough Verified 07/10/22 11:34 Family History Father COPD (chronic obstructive pulmonary disease) Heart disease Mother CAD (coronary artery disease) Myocardial infarction CVA (cerebral vascular accident) Diabetes Brother CAD (coronary artery disease) Pacemaker Diabetes History of coronary artery bypass surgery Brother Brain aneurysm Surgical History History of cardiac catheterization History of coronary artery stent placement History of hip replacement History of left heart catheterization (LHC) (~02/06/21) Presence of coronary angioplasty implant and graft (~05/01/18) Social History household members: spouse Smoking Status: Former smoker how long ago did patient quit smokin years ago, smoked since 14 years old. alcohol intake: former details: Quit in 1980 substance use type: does not use caffeine: Yes Type: coffee Number of servings: 2 ROS ROS ED Review of Systems ROS Unobtainable: other Details: limited due to dementia per Constitutional Constitutional ED: Reports weakness; Denies chills or fever(s) Eyes Eyes: Denies change in vision or diplopia ENT ENT ED: Denies ear pain or sore throat Cardiovascular Cardiovascular: Denies chest pain Respiratory/Chest Respiratory/Chest: Reports cough, dyspnea and dyspnea on exertion Gastrointestinal Gastrointestinal: Denies abdominal pain, diarrhea or vomiting Genitourinary Genitourinary ED: Reports other Details: dark urine w/ dec output ; Denies hematuria Musculoskeletal Musculoskeletal: Denies myalgias or neck pain Integumentary Denies abscess or rash Neurologic Neurologic: Reports as per HPI and confusion; Denies headache(s), paresthesias or weakness EXAM Physical Exam Const Vital Signs: 07/10/22 11:35 07/10/22 12:23 07/10/22 12:33 Temperature 97.9 F 97.9 F Temperature Source Temporal Temporal Pulse Rate 92 92 80 Respiratory Rate 24 H 24 H 16 Respiratory Pattern Normal Blood Pressure 161/56 H 161/56 H Blood Pressure Mean 91 91 Pulse Ox 97 97 Oxygen Delivery Method Room Air Room Air Oxygen Flow Rate (L/min) 07/10/22 13:00 Temperature 98.7 F Temperature Source Temporal Pulse Rate 101 H Respiratory Rate 21 H Respiratory Pattern Blood Pressure 154/70 H Blood Pressure Mean 98 Pulse Ox 100 Oxygen Delivery Method Nasal Cannula Oxygen Flow Rate (L/min) 3 Positive well nourished and well developed General Appearance ED: well developed and NAD HEENT Reports moist mucous membranes normocephalic and atraumatic Throat: Negative for posterior oropharynx abnormal Eyes PERRL and EOMs intact bilaterally Neck no lymphadenopathy, supple and no meningeal signs Resp Resp Narrative: Mild tachypnea, no respiratory distress, expiratory wheezes bilaterally. No rales or rhonchi. Cardio no murmurs Rate: regular rate Rhythm: regular rhythm GI non-tender and non-distended Auscultation: normoactive bowel sounds Palpation: soft Back/Spine General Back: other FROM Extremity normal to inspection General Extremety ED: Negative for edema, pulses abnormal or tenderness General Extremity: Negative for edema or pulses abnormal Neuro CN's II-XII intact bilaterally and no sensory deficits noted Sensorium / Orientation: alert, oriented to person and orientation impaired Motor Exam: strength 5/5 throughout Skin no rashes or lesions noted and no wounds Lesions: no lesions Rashes: no rashes MDM MDM MDM Narrative Medical decision making narrative: I did review the patient's chest x-ray from yesterday that showed no pneumonia/consolidations. Labs show leukocytosis but otherwise are okay. He was given IV fluids because of his poor oral intake, he did not urinate, but he felt better after the nebulizer treatments and his hypoxemia was improved. He is on a 3 L nasal cannula satting at 100%, we brought him down a little so he was in the mid 90s. He feels better. is comfortable taking him home. He is able to stand and transfer. He has a history of a flutter but his EKG shows sinus rhythm at a rate of 89 right now, and I think this is consistent with a COPD exacerbation. I think he is breathing well enough to go home with this. is comfortable with that. Given that he may have a viral infection and has no pneumonia I still would put him on antibiotics to prevent bacterial superinfection which he is at risk for on top of viral illness given his COPD that is significant enough to require home oxygen. We will also start him on steroids, both were started here in the emergency department, prescriptions to be started in the morning, follow-up with pulmonology. Since the patient did not urinate and have been here for a while, the is okay not waiting for him to urinate and being discharged on the above plan. Lab Data Attestation: I reviewed the patient's lab results. Labs: Laboratory Results - last 24 hr 07/10/22 07/10/22 12:11 12:11 WBC 14.9 H RBC 3.44 L Hgb 11.5 L Hct 33.3 L MCV 96.8 H MCH 33.4 H MCHC 34.5 RDW Std Deviation 47.9 H RDW Coeff of Anthony 13.6 Plt Count 178 MPV 9.3 Immature Gran % (Auto) 0.500 Neut % (Auto) 87.7 H Lymph % (Auto) 6.3 L [place] % (Auto) 5.2 Eos % (Auto) 0.1 Baso % (Auto) 0.2 Absolute Neuts (auto) 13.1 H Absolute Lymphs (auto) 0.94 Nucleated RBC % 0 Sodium 137 Potassium 3.4 L Chloride 101 Carbon Dioxide 24.0 Anion Gap 12 BUN 9 Creatinine 1.12 Estim Creat Clear Calc 59.38 Est GFR (MDRD) Af Amer 83 Est GFR (MDRD) Non-Af 69 BUN/Creatinine Ratio 8.0 L Glucose 191 H Calcium 9.4 Rhythm Strip Rhythm Strip: Sinus Rhythm Rate: 90 Ectopy: None EKG Initial EKG: Attestation: I personally reviewed and interpreted this EKG as follows: Interpretation: Sinus Rhythm, No Acute Injury Pattern and Non-Specific ST Changes Discharge Plan Triage Chief Complaint: Shortness of Breath ED Provider: Martin Valdes Dx/Rx/DC Orders Clinical Impression: Acute exacerbation of chronic obstructive pulmonary disease (COPD), URI (upper respiratory infection) Instructions: ED COPD Flare Prescriptions: New prednisone 10 mg tablet 10 mg PO UD Qty: 23 0RF Rx Instructions: Take 3 tablets daily for 4 days, then 2 daily for 3 days, then 1 a day for 3 days then 1 QOD for 2 doses. cefdinir 300 mg capsule 300 mg PO BID Qty: 20 0RF No Action Daliresp 500 mcg tablet 500 mcg PO QPM Rx Instructions: Takes in the PM omega-3 fatty acids [Fish Oil Concentrate] 1,000 mg capsule 2,000 mg PO BID glipizide 5 mg tablet 5 mg PO BID tamsulosin 0.4 mg capsule 0.4 mg PO DAILY cholecalciferol (vitamin D3) 2,000 unit tablet 2,000 unit tablet 2,000 unit PO QPM torsemide 10 mg tablet 5 mg PO DAILY montelukast 10 mg tablet 10 mg PO DAILY albuterol sulfate 2.5 mg /3 mL (0.083 %) solution for nebulization 2.5 mg INHALATION 4X/DAY PRN (Reason: Sob &/Or Wheezing) magnesium oxide 400 mg magnesium tablet 400 mg PO DAILY ferrous gluconate 324 mg (37.5 mg iron) tablet 324 mg PO BID Asmanex HFA 200 mcg/actuation HFA aerosol inhaler 2 puff inhalation BID Stiolto Respimat 2.5-2.5 mcg/actuation mist 2 puff inhalation Q24H acetaminophen 650 mg tablet extended release 1,300 mg PO Q12H gabapentin 300 mg capsule 300 mg PO TID sertraline 50 mg tablet 50 mg PO DAILY atorvastatin 40 MG tablet 40 mg PO QHS Label Comments: CHOLESTEROL metformin 1,000 MG tablet 1,000 mg PO BIDCM Label Comments: DIABETES valsartan 320 MG tablet 320 mg PO DAILY Label Comments: BLOOD PRESSURE albuterol sulfate 1 PUFF inhaler 2 puff INHALATION Q4H PRN PRN (Reason: Shortness Of Breath) Label Comments: BREATHING apixaban 5 mg tablet 5 mg PO BID Qty: 180 4RF Hold Instructions: Hold it until sees PCP/1 week Rx Instructions: Restart 02/07/2021 clotrimazole 1 % Cream 1 applic TOPICAL BID PRN (Reason: feet) pantoprazole [Protonix] 40 mg tablet,delayed release (DR/EC) 40 mg PO DAILY Qty: 30 2RF ascorbic acid (vitamin C) 500 mg tablet 500 mg PO BID Qty: 60 0RF nifedipine 90 mg Tablet Extended Release 90 mg PO DAILY tramadol 50 mg Tablet 50 mg PO BID PRN (Reason: Pain) amlodipine 5 mg tablet 5 mg PO DAILY Qty: 30 11RF metoprolol tartrate 25 mg tablet 25 mg PO BID Qty: 180 3RF Primary Care Provider: Umesh Orr Referrals: Umesh Orr MD [Primary Care Provider] - Gianfranco Tavarez MD [Med Staff - Active Staff] - As soon as possible Disposition Disposition: Home, Self Care
[2022-07-10] MEDS: MethylPREDNISolone 125 MG/2 ML Vial IV (12:17)
[2022-07-10] MEDS: Albuterol 2.5 MG/3 ML VIAL.NEB. INHALATION ×3 (12:22→13:56)
[2022-07-10 12:23] VITALS: BP 161/56; PULSE 92; RESP 24; TEMP 36.6; O2SAT 97
[2022-07-10] MEDS: Ipratropium/Albuterol Sulfate 3 ML AMPUL.NEB INHALATION (12:24)
[2022-07-10 12:33] VITALS: PULSE 80; RESP 16
[2022-07-10 12:35] LABS: Anion Gap 12 (5-15); BUN 9 mg/dL (7-18); Calcium,Total 9.4 mg/dL (8.5-10.1); Chloride 101 mmol/L (98-107); Creatinine, Serum 1.12 mg/dL (0.70-1.30); EST Glomerular Filtration Rate 69 mL/min (>60); Est Glom Filt Rate - Afr Amer 83 mL/min (>60); Estimated Creatinine Clearance 59.38 ml/min; Glucose 191 mg/dL (74-106); Potassium 3.4 mmol/L (3.5-5.1); Sodium Level 137 mmol/L (136-145)
[2022-07-10 12:44] LABS: Absolute Lymphocyte Count 0.94 X10^3/uL (0.83-4.51); Absolute Neutrophil Count 13.1 X10^3/uL (2.0-7.7); Basophil# 0.03 X10^3/uL; Basophil% 0.2 % (0-1); Eosinophil# 0.02 X10^3/uL; Eosinophils% 0.1 % (0-5); Hematocrit 33.3 % (40-54); Hemoglobin 11.5 g/dL (13.0-16.5); Lymphocyte # 0.94 X10^3/ul (0.83-4.51); Lymphocyte % 6.3 % (19-41); Mean Corp Hgb Conc 34.5 g/dL (32-36); Mean Corpuscular Hgb 33.4 pg (27.0-32.0); Mean Corpuscular Volume 96.8 fL (80-94); Mean Platelet Vol. 9.3 fl (6.2-12.0); Monocyte# 0.78 X10^3/uL; Monocyte% 5.2 % (0-10); NRBC Flagged by Analyzer 0 % (0-5); Neutrophil # 13.05 X10^3/uL (2.7-7.7); Neutrophil % 87.7 % (47-70); Platelet Count 178 K/mm3 (150-450); RBC Distribution Width CV 13.6 % (11.6-14.6); RBC Distribution Width SD 47.9 fl (35.1-43.9); Red Blood Count 3.44 M/mm3 (4.6-6.2); White Blood Count 14.9 K/mm3 (4.4-11.0)
[2022-07-10 13:00] VITALS: BP 154/70; PULSE 101; RESP 21; TEMP 37.1; O2SAT 100
[2022-07-10 14:20] VITALS: BP 125/60; PULSE 93; RESP 18; O2SAT 92
[2022-07-10] MEDS: Cefdinir 300 MG Capsule PO (14:37)
== END 2022-07-10 14:44 | disposition home or self-care (01) ==
PROVIDERS: Emergency Provider Emergency Medicine; PCP Family Medicine; Visit Provider Emergency Medicine
DX: J44.1 Chronic obstructive pulmonary disease with (acute) exacerbation (principal); F03.90 Unspecified dementia, unspecified severity, without behavioral disturbance, psychotic disturbance, mood disturbance, and anxiety; J06.9 Acute upper respiratory infection, unspecified; I25.10 Atherosclerotic heart disease of native coronary artery without angina pectoris; G47.33 Obstructive sleep apnea (adult) (pediatric); Z86.16 Personal history of COVID-19; Z95.5 Presence of coronary angioplasty implant and graft; Z99.81 Dependence on supplemental oxygen; Z87.891 Personal history of nicotine dependence
CPT/HCPCS: 80048; 85025; 87635; 93005; 94640; 99251; 99284; J7040; A4216; G0463; U0003; U0005

== ENCOUNTER → 2022-07-19 | Outpatient (CLI) | payer MEDICARE, SELFPAY ==
[2018-05-01 14:21] VITALS: BMI 36.8
== END | disposition home or self-care (01) ==
LOC: LABSPEC 10:19
PROVIDERS: PCP Family Medicine; Referring Provider Internal Medicine Pulmonary Disease; Visit Provider Internal Medicine Pulmonary Disease
DX: R05.9 Cough, unspecified (principal)
CPT/HCPCS: 87070; 87205

== ENCOUNTER 2022-07-22 12:43 | Inpatient (IN) | payer MEDICARE, SELFPAY ==
[2018-05-01 14:21] VITALS: BMI 36.8
[2022-07-22] VITALS (13 sets, daily range): BP systolic 137–172; BP diastolic 61–103; PULSE 78–102; RESP 16–24; TEMP 36.6–37.1; O2SAT 92–97; BMI 34.4
--- NOTE | 2022-07-22 13:21 | EKG12_ITS ---
Test Reason : SOB Blood Pressure : / mmHG Vent. Rate : 077 BPM Atrial Rate : 077 BPM P-R Int : 150 ms QRS Dur : 086 ms QT Int : 366 ms P-R-T Axes : 064 054 070 degrees QTc Int : 414 ms Normal sinus rhythm Nonspecific T wave abnormality Abnormal ECG Confirmed by WINTER SIMMS, CHANO ([id number]), multimedia editor RENÉ SANDOVAL ([id number]) on 07/24/2022 10:35:01 AM Referred By: Confirmed By:CHANO MAX MD
--- NOTE | 2022-07-22 13:23 | EDS_ITS ---
HPI History of Present Illness Chief Complaint: Shortness of Breath Detail of Chief Complaint: Hypoxia, wheezing, cough Informant: patient and spouse/S.O. Onset/Context/Timing Onset: Days Context: gradual Timing: Continuous and Waxes and wanes Quality: Positive for Dyspnea on exertion, Orthopnea and Wheezing; Negative for PND Current Severity: Mild Maximum Severity: Severe Worsened by: Exertion Relieved by: Oxygen (O2 sat improved with oxygen.) Associated Symptoms cough and sore throat; Negative for rhinorrhea, post nasal drip, ear pain, fever, subjective, chills, sweats, clear sputum, white sputum or yellow sputum Chest Pain: Positive for None Narrative Narrative: Patient is a 72-year-old male with history of COPD, obstructive sleep apnea on oxygen at night and as needed. He has been using his CPAP machine per significant other. History is limited due to dementia. Patient was a smoker. According to significant other he was seen end of June. Treated with prednisone. He improved. He is gotten worse. 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 Gianfranco Tavarez on Friday. He was prescribed Bactrim. Significant other informed that the MRSA screen was negative. PE Risk Factors: Positive for Recent immobilization; Negative for Cancer, OCP + Smoking + > 35, Prior DVT or PE, Recent surgery or Recent travel Prior similar symptoms: Yes Recent Illness/Hospitalization: Yes [facility] Medical History Acute and chronic respiratory failure with hypoxia Acute on chronic anemia Alcoholism Anemia Atherosclerotic heart disease of [place] coronary artery without angina pectoris Atrial fibrillation Atrial fibrillation and flutter BiPAP (biphasic positive airway pressure) dependence CAD (coronary artery disease) COPD (chronic obstructive pulmonary disease) COPD exacerbation COVID Diabetes Dyspnea Encounter for screening for COVID-19 Essential hypertension Former smoker GERD (gastroesophageal reflux disease) GI bleed History of GI bleed History of short term memory loss Hydrocele, bilateral Hyperlipemia Hypokalemia Lung nodule, multiple On home oxygen therapy ELISHA (obstructive sleep apnea) Paroxysmal atrial fibrillation Presence of stent in coronary artery (~05/01/18) Pulmonary HTN Sleep apnea Suspected COVID-19 virus infection Type 2 diabetes mellitus Home Medications albuterol sulfate 90 mcg/actuation aerosol inhaler 2 puff inhalation Q4H PRN PRN Shortness Of Breath 06/24/15 [History Last Taken 07/22/22] atorvastatin 40 mg tablet 40 mg PO QHS Cholesterol 06/24/15 [History Last Taken 07/21/22] metformin 1,000 mg tablet 1,000 mg PO BIDCM Diabetes 06/24/15 [History Last Taken 07/22/22] valsartan 320 mg tablet 320 mg PO DAILY BP 06/24/15 [History Last Taken 07/22/22] cholecalciferol (vitamin D3) 50 mcg (2,000 unit) tablet 2,000 unit PO QPM vitamin 04/14/18 [History Last Taken 07/22/22] omega-3 fatty acids 1,000 mg capsule (Fish Oil Concentrate) 2,000 mg PO BID Heart health 04/14/18 [History Last Taken 07/22/22] roflumilast 500 mcg tablet (Daliresp) 500 mcg PO QPM COPD 04/14/18 [History Last Taken 07/21/22] tamsulosin 0.4 mg capsule 0.4 mg PO DAILY Prostate 04/14/18 [History Last Taken 07/21/22] albuterol sulfate 2.5 mg/3 mL (0.083 %) solution for nebulization 2.5 mg inhalation 4X/DAY PRN Sob &/Or Wheezing 10/15/18 [History Last Taken 07/22/22] montelukast 10 mg tablet 10 mg PO DAILY asthma 10/15/18 [History Last Taken 07/21/22] torsemide 10 mg tablet 5 mg PO DAILY diuretic 10/15/18 [History Last Taken 07/22/22] magnesium oxide 400 mg PO DAILY 10/25/20 [History Last Taken 07/21/22] apixaban 5 mg tablet 5 mg PO BID #180 tabs 02/06/21 [Rx Last Taken 07/22/22] mometasone 200 mcg/actuation HFA aerosol inhaler (Asmanex HFA) 2 puff inhalation BID 05/08/21 [History Last Taken 07/22/22] tiotropium 2.5 mcg-olodaterol 2.5 mcg/actuation mist for inhalation (Stiolto Respimat) 2 puff inhalation Q24H copd 05/08/21 [History Last Taken 07/22/22] sertraline 50 mg tablet 50 mg PO DAILY 08/01/21 [History Last Taken 07/22/22] ascorbic acid (vitamin C) 500 mg tablet 500 mg PO BID #60 tabs 11/27/21 [Rx Last Taken 07/22/22] clotrimazole 1 % topical cream 1 applic topical BID PRN feet 11/27/21 [History Last Taken Unknown] pantoprazole 40 mg tablet,delayed release (Protonix) 40 mg PO DAILY #30 tabs 11/27/21 [Rx Last Taken 07/22/22] ferrous gluconate 324 mg (37.5 mg iron) tablet 324 mg PO BID 01/01/22 [History Last Taken 07/22/22] amlodipine 5 mg tablet 5 mg PO DAILY #30 tabs 02/05/22 [Rx Last Taken 07/22/22] nifedipine 90 mg tablet,extended release 90 mg PO DAILY 03/15/22 [History Last Taken 07/22/22] tramadol 50 mg tablet 50 mg PO BID PRN Pain 03/15/22 [History Last Taken 07/22/22] acetaminophen 650 mg tablet,extended release 1,300 mg PO Q12H 05/08/22 [History Last Taken 07/21/22] gabapentin 300 mg capsule 300 mg PO TID 05/08/22 [History Last Taken 07/22/22] metoprolol tartrate 25 mg tablet 25 mg PO BID #180 tabs 05/09/22 [Rx Last Taken 07/22/22] mirtazapine 15 mg tablet 15 mg PO DAILY SLEEP 07/22/22 [History Last Taken 07/21/22] prednisone 5 mg tablet 5 mg PO QODAY STEROID 07/22/22 [History Last Taken 07/21/22] Allergy/AdvReac Type Severity Reaction Status Date / Time doxycycline Allergy Severe Rash Verified 07/22/22 12:46 empagliflozin AdvReac Severe yeast Verified 07/22/22 12:46 [From Jardiance] infection lisinopril AdvReac Intermediate Cough Verified 07/22/22 12:46 Family History Father COPD (chronic obstructive pulmonary disease) Heart disease Mother CAD (coronary artery disease) Myocardial infarction CVA (cerebral vascular accident) Diabetes Brother CAD (coronary artery disease) Pacemaker Diabetes History of coronary artery bypass surgery Brother Brain aneurysm Surgical History History of cardiac catheterization History of coronary artery stent placement History of hip replacement History of left heart catheterization (LHC) (~02/06/21) Presence of coronary angioplasty implant and graft (~05/01/18) Social History household members: spouse Smoking Status: Former smoker how long ago did patient quit smokin years ago, smoked since 14 years old. alcohol intake: former details: Quit in 1980 substance use type: does not use caffeine: Yes Type: coffee Number of servings: 2 ROS ROS ED Review of Systems ROS Unobtainable: due to mental status Constitutional Constitutional ED: Denies chills, fever(s), sweats or weight loss Cardiovascular Cardiovascular: Reports orthopnea; Denies chest pain, palpitations or paroxysmal nocturnal dyspnea Respiratory/Chest Respiratory/Chest: Reports cough, dyspnea, dyspnea on exertion, orthopnea and sputum; Denies paroxysmal nocturnal dyspnea Gastrointestinal Gastrointestinal: Denies abdominal pain, nausea or vomiting Musculoskeletal Musculoskeletal: Denies arthralgias or myalgias Integumentary Denies rash Neurologic Neurologic: Denies headache(s) or paresthesias Hematologic/Lymphatic Hematologic/Lymphatic: Denies easy bleeding or easy bruising EXAM Physical Exam Const Vital Signs: 07/22/22 12:44 07/22/22 13:43 07/22/22 13:43 Temperature 98.2 F Temperature Source Temporal Pulse Rate 91 85 Respiratory Rate 16 22 H Respiratory Effort Short of Breath Labored Respiratory Depth Shallow Respiratory Pattern Normal Blood Pressure 169/61 H Blood Pressure Mean 97 Pulse Ox 96 95 Oxygen Delivery Method Nasal Cannula Room Air Nasal Cannula Oxygen Flow Rate (L/min) 3 07/22/22 13:30 07/22/22 13:30 Temperature Temperature Source Pulse Rate Respiratory Rate 21 H 21 H Respiratory Effort Short of Breath Respiratory Depth Respiratory Pattern Blood Pressure Blood Pressure Mean Pulse Ox 94 Oxygen Delivery Method Nasal Cannula Oxygen Flow Rate (L/min) 3 Positive well nourished, well developed and obese Constitutional Narrative: Patient is tachypneic in spite of respiratory rate of 16 per triage. General Appearance ED: well developed; Negative for pallor Nutritional Appearance: obese HEENT Reports dry mucous membranes HEENT Narrative: Head is atraumatic normocephalic. Ears normal. Nares patent. Uvula midline. No erythema or exudate to posterior pharynx. Mouth ED: Yes dry mucous membranes Mouth: dry mucous membranes Eyes PERRL and EOMs intact bilaterally General Eye ED: Negative for pale conjunctiva or scleral icterus Neck no lymphadenopathy, supple, no meningeal signs and no JVD Resp No normal respiratory effort and No clear to auscultation bilaterally Auscultation: rales bilateral base and wheezes expiratory wheezes and throughout Cardio regular rate, regular rhythm, S1 normal heart sound, S2 normal heart sound and no murmurs GI non-tender, non-distended and no masses Auscultation: hypoactive bowel sounds Palpation: soft Back/Spine no CVA tenderness and normal to inspection Neuro No oriented x3, CN's II-XII intact bilaterally and no sensory deficits noted Milad Coma Scale: document GCS findings Spontaneous Obeys Commands Confused 14 Sensorium / Orientation: alert Psych mental status grossly normal Skin no wounds and skin turgor normal General Skin Exam: Negative for jaundice or pallor Lesions: no lesions Rashes: no rashes MDM MDM MDM Narrative Medical decision making narrative: Differential would be exacerbation chronic bronchitis, exacerbation COPD, pneumonia doubt pulmonary embolus. Patient does have edema of the lower extremities which is not new according to spouse. She states she sleeps with 1 pillow. There is no complaint of orthopnea. EKG was obtained to evaluate for ischemia and dysrhythmia. Chest x-ray to evaluate for pneumonia. CBC to assess white count and H&H. Comprehensive metabolic panel lactate to assess for endorgan dysfunction. Since patient has a white count of 24.9 thousand clinically has pneumonia lactate of 3.4 will obtain blood cultures x2 and treat with Rocephin and azithromycin for community-acquired pneumonia. Lab Data Attestation: I reviewed the patient's lab results. Lab results narrative: Patient has a white count of 24.9 thousand with shift. There is no bandemia. There is evidence of anemia. MCV is slightly elevated. Electrolyte panels remarkable for a sodium of 132. CO2 anion gap is normal. Blood was elevated 3 and 59. Patient does have type II diet. Labs: Laboratory Results - last 24 hr 07/22/22 13:37 Diff Path Review Reviewed Rapid COVID and influenza were both negative. Since patient has green-colored sputum elevated lactate white count of 24.9 thousand we will treat for presumed pneumonia. Of note when he was reexamined at 1438 he still had wheezing. He is still requiring oxygen, which is not normal for patient. When he ambulates without oxygen his pulse ox drops in the 70s. ABG Data ABG results: ABG 07/22/22 13:56 Specimen Type ART Sample Site L Brach pH 7.44 Bicarbonate Actual 22.5 Total CO2 24 Base Excess -2 O2 Saturation 96 ABG pCO2 33.2 L ABG pO2 74 L O2 Delivery Device Cannula Liter Flow 3.0 Radiography Chest X-Ray - ED: 2 View and Read by ED Physician (To views were obtained. There is a difference in penetration. There may be an infiltrate on the left versus difference in penetration compared to x-ray obtained July 09, 2022. Cardiac silhouette and size unremarkable. Osseous structures are unremarkable.) Diagnostic Testing: Clinical Impression(s) from Imaging Studies Chest X-Ray 07/22/22 14:10 IMPRESSION: Patchy infiltrates at both lung bases more prominent on the left side. Electronically Signed: Mihir Muller MD at 14:50 EST , EKG Initial EKG: Attestation: I personally reviewed and interpreted this EKG as follows: Interpretation: Sinus Rhythm (Sinus rhythm rate of 77. [place] interval is 150 ms. Cures duration 86 ms. QT duration 366 ms. [place] is normal. Computer is reading ossific changes, which is artifact.) Discharge Plan Dx/Rx/DC Orders Clinical Impression: Acute and chronic respiratory failure with hypoxia, Essential hypertension, Atherosclerotic heart disease of [place] coronary artery without angina pectoris, SIRS (systemic inflammatory response syndrome), Acidosis, lactic, Acute exacerbation of chronic bronchitis, Asthma exacerbation in COPD Disposition Disposition: Acute Care [facility]
[2022-07-22] MEDS: Albuterol 2.5 MG/3 ML VIAL.NEB. INHALATION ×3 (13:34)
[2022-07-22] MEDS: MethylPREDNISolone 125 MG/2 ML Vial IV (13:40)
[2022-07-22 13:55] LABS: Absolute Neutrophil Count 23.6 X10^3/uL (2.0-7.7); Basophil# 0.05 X10^3/uL; Basophil% 0.2 % (0-1); Eosinophil# 0.02 X10^3/uL; Eosinophils% 0.1 % (0-5); Hematocrit 27.8 % (40-54); Hemoglobin 9.4 g/dL (13.0-16.5); Lymphocyte % 1.2 % (19-41); Mean Corp Hgb Conc 33.8 g/dL (32-36); Mean Corpuscular Hgb 32.9 pg (27.0-32.0); Mean Corpuscular Volume 97.2 fL (80-94); Mean Platelet Vol. 8.8 fl (6.2-12.0); Monocyte# 0.44 X10^3/uL; Monocyte% 1.8 % (0-10); NRBC Flagged by Analyzer 0 % (0-5); Neutrophil # 23.55 X10^3/uL (2.7-7.7); Neutrophil % 94.4 % (47-70); POSITIVE DIFFERENTIAL YES; Platelet Count 304 K/mm3 (150-450); RBC Distribution Width CV 13.1 % (11.6-14.6); RBC Distribution Width SD 46.1 fl (35.1-43.9); Red Blood Count 2.86 M/mm3 (4.6-6.2); White Blood Count 24.9 K/mm3 (4.4-11.0)
[2022-07-22 14:00] LABS: Base Excess -2 mmol/L (-2 to +2); Bicarbonate 22.5 mmol/L (22-26); Blood Gas Specimen Type ART; O2 Delivery Device Cannula; PO2 74 mmHG (75-100); SITE L Brach; SO2 96 % (95-99); Total Carbon Dioxide 24 mmol/L; pCO2 33.2 mmHg (35-45); pH 7.44 (7.35-7.45)
[2022-07-22 14:00] LABS: Differential Indicated SCAN CRITERIA MET
--- NOTE | 2022-07-22 14:10 | RAD_ITS ---
STUDY: X-RAY CHEST REASON FOR EXAM: Male, 72 years old. Cough, hypoxia and wheezing TECHNIQUE: AP and lateral views of the chest. COMPARISON: Comparison is made with prior study dated 07/09/2022. FINDINGS: EKG electrodes are seen. Patchy infiltrates seen in the lingular segment of the left upper lobe as well as in the left lower lobe. Mild increased markings in the right midlung. There is blunting of the left costophrenic angle posteriorly. Hyperinflation. Normal size heart. Normal mediastinum and darryl. Normal visualized pulmonary arteries. Normal visualized aortic arch and descending thoracic aorta. Normal visualized thoracic spine. Normal visualized ribs, clavicles, and shoulders. There is no demonstrated abnormality of the visualized soft tissue structures of the upper abdomen. RAD/Chest PA and Lateral IMPRESSION: Patchy infiltrates at both lung bases more prominent on the left side. Electronically Signed: Mihir Muller MD at 14:50 EST ,
[2022-07-22 14:13] LABS: Anion Gap 9 (5-15); BUN 11 mg/dL (7-18); BUN/Creat Ratio 9.6 RATIO (10-20); Calcium,Total 8.7 mg/dL (8.5-10.1); Chloride 99 mmol/L (98-107); Creatinine, Serum 1.14 mg/dL (0.70-1.30); EST Glomerular Filtration Rate 67 mL/min (>60); Est Glom Filt Rate - Afr Amer 82 mL/min (>60); Estimated Creatinine Clearance 56.37 ml/min; Glucose 359 mg/dL (74-106); Potassium 4.2 mmol/L (3.5-5.1); Sodium Level 132 mmol/L (136-145)
[2022-07-22 14:29] LABS: Lactic Acid 3.4 mmol/L (0.4-1.9)
[2022-07-22] MEDS: Ipratropium/Albuterol Sulfate 3 ML AMPUL.NEB INHALATION (14:48)
--- NOTE | 2022-07-22 14:54 | PCM.HP.STD ---
HPI - General General Date of Admission: 07/22/22 Date of Service: 07/22/22 Chief Complaint: Dyspnea, cough, wheezing. HPI Narrative The patient is a 72 y/o M w/ PMHx: Anxiety and Depression, Dementia unclear type with unclear behavioral disturbance history, obesity, Chronic anemia/Fe deficiency anemia, CAD s/p PCI, HTN, HLD, Former Alcohol abuse, PAF/Flutter, COPD/Asthma with Chronic Hypoxic Respiratory Failure (2L NC-3L NC), ELISHA on BIPAP q HS, Hx prior GI bleed, Diabetes mellitus type II, Former tobacco use who presents to the [facility] ED on 07/22/22 with history of recent difficulties in June towards the end of the month with his breathing with significant wheezing with prednisone therapy at that time with initially improvement however he again worsened with evaluation per his instructional resource teacher Dr. Tavarez at the Friday prior with start on Bactrim at that time with a negative MRSA screen without marked improvement with ongoing significant cough, wheezing and desaturation with notable hypoxia with worsened symptoms with exertion with concurrent orthopnea with no recent associated fevers or chills however given his ongoing symptoms prompted ED evaluation. Patient does have chronic lower extremity swelling however this is unchanged. Patient's has not been ill however they do have a 19-year-old grand daughter who lives with him and she has had recent upper respiratory type symptoms. When he was recently treated per his instructional resource teacher he initially did feel improved however after 2 days he started to worsen again. Work-up in the ED included T98.2, heart rate 91, BP 169/61, respiratory rate 16, 96% on 3 L nasal cannula, CBC with WBC 24.9, hemoglobin 9.4, MCV 97.2, platelets 304 with left shift and lymphopenia, ABG with PCO2 33.2, PO2 74 on 3 L nasal cannula, BMP with sodium 132, glucose 359, lactic acid 3.4, respiratory SARS COVID antigen and influenza antigen negative, chest x-ray with Patchy infiltrates at both lung bases more prominent on the left side, EKG with sinus rhythm with no acute evidence of ischemia. In the ED patient ministered Solu-Medrol 125 mg IV x1, DuoNeb therapy as well as azithromycin and IV Rocephin. Of note patient did have recent 07/19/2022 sputum culture that read is final mixed normal marquita. [facility]LY [facility] Medical History Acute and chronic respiratory failure with hypoxia Acute on chronic anemia Alcoholism Anemia Atherosclerotic heart disease of unga coronary artery without angina pectoris Atrial fibrillation Atrial fibrillation and flutter BiPAP (biphasic positive airway pressure) dependence CAD (coronary artery disease) COPD (chronic obstructive pulmonary disease) COPD exacerbation COVID Diabetes Dyspnea Encounter for screening for COVID-19 Essential hypertension Former smoker GERD (gastroesophageal reflux disease) GI bleed History of GI bleed History of short term memory loss Hydrocele, bilateral Hyperlipemia Hypokalemia Lung nodule, multiple On home oxygen therapy ELISHA (obstructive sleep apnea) Paroxysmal atrial fibrillation Presence of stent in coronary artery (~05/01/18) Pulmonary HTN Sleep apnea Suspected COVID-19 virus infection Type 2 diabetes mellitus Home Medications albuterol sulfate 90 mcg/actuation aerosol inhaler 2 puff inhalation Q4H PRN PRN Shortness Of Breath 06/24/15 [History Last Taken 07/22/22] atorvastatin 40 mg tablet 40 mg PO QHS Cholesterol 06/24/15 [History Last Taken 07/21/22] metformin 1,000 mg tablet 1,000 mg PO BIDCM Diabetes 06/24/15 [History Last Taken 07/22/22] valsartan 320 mg tablet 320 mg PO DAILY BP 06/24/15 [History Last Taken 07/22/22] cholecalciferol (vitamin D3) 50 mcg (2,000 unit) tablet 2,000 unit PO QPM vitamin 04/14/18 [History Last Taken 07/22/22] omega-3 fatty acids 1,000 mg capsule (Fish Oil Concentrate) 2,000 mg PO BID Heart health 04/14/18 [History Last Taken 07/22/22] roflumilast 500 mcg tablet (Daliresp) 500 mcg PO QPM COPD 04/14/18 [History Last Taken 07/21/22] tamsulosin 0.4 mg capsule 0.4 mg PO DAILY Prostate 04/14/18 [History Last Taken 07/21/22] albuterol sulfate 2.5 mg/3 mL (0.083 %) solution for nebulization 2.5 mg inhalation 4X/DAY PRN Sob &/Or Wheezing 10/15/18 [History Last Taken 07/22/22] montelukast 10 mg tablet 10 mg PO DAILY asthma 10/15/18 [History Last Taken 07/21/22] torsemide 10 mg tablet 5 mg PO DAILY diuretic 10/15/18 [History Last Taken 07/22/22] magnesium oxide 400 mg PO DAILY 10/25/20 [History Last Taken 07/21/22] apixaban 5 mg tablet 5 mg PO BID #180 tabs 02/06/21 [Rx Last Taken 07/22/22] mometasone 200 mcg/actuation HFA aerosol inhaler (Asmanex HFA) 2 puff inhalation BID 05/08/21 [History Last Taken 07/22/22] tiotropium 2.5 mcg-olodaterol 2.5 mcg/actuation mist for inhalation (Stiolto Respimat) 2 puff inhalation Q24H copd 05/08/21 [History Last Taken 07/22/22] sertraline 50 mg tablet 50 mg PO DAILY 08/01/21 [History Last Taken 07/22/22] ascorbic acid (vitamin C) 500 mg tablet 500 mg PO BID #60 tabs 11/27/21 [Rx Last Taken 07/22/22] clotrimazole 1 % topical cream 1 applic topical BID PRN feet 11/27/21 [History Last Taken Unknown] pantoprazole 40 mg tablet,delayed release (Protonix) 40 mg PO DAILY #30 tabs 11/27/21 [Rx Last Taken 07/22/22] ferrous gluconate 324 mg (37.5 mg iron) tablet 324 mg PO BID 01/01/22 [History Last Taken 07/22/22] amlodipine 5 mg tablet 5 mg PO DAILY #30 tabs 02/05/22 [Rx Last Taken 07/22/22] nifedipine 90 mg tablet,extended release 90 mg PO DAILY 03/15/22 [History Last Taken 07/22/22] tramadol 50 mg tablet 50 mg PO BID PRN Pain 03/15/22 [History Last Taken 07/22/22] acetaminophen 650 mg tablet,extended release 1,300 mg PO Q12H 05/08/22 [History Last Taken 07/21/22] gabapentin 300 mg capsule 300 mg PO TID 05/08/22 [History Last Taken 07/22/22] metoprolol tartrate 25 mg tablet 25 mg PO BID #180 tabs 05/09/22 [Rx Last Taken 07/22/22] mirtazapine 15 mg tablet 15 mg PO DAILY SLEEP 07/22/22 [History Last Taken 07/21/22] prednisone 5 mg tablet 5 mg PO QODAY STEROID 07/22/22 [History Last Taken 07/21/22] Allergy/AdvReac Type Severity Reaction Status Date / Time doxycycline Allergy Severe Rash Verified 07/22/22 12:46 empagliflozin AdvReac Severe yeast Verified 07/22/22 12:46 [From Jardiance] infection lisinopril AdvReac Intermediate Cough Verified 07/22/22 12:46 Family History Father COPD (chronic obstructive pulmonary disease) Heart disease Mother CAD (coronary artery disease) Myocardial infarction CVA (cerebral vascular accident) Diabetes Brother CAD (coronary artery disease) Pacemaker Diabetes History of coronary artery bypass surgery Brother Brain aneurysm Surgical History History of cardiac catheterization History of coronary artery stent placement History of hip replacement History of left heart catheterization (LHC) (~02/06/21) Presence of coronary angioplasty implant and graft (~05/01/18) Social History household members: spouse Smoking Status: Former smoker how long ago did patient quit smokin years ago, smoked since 14 years old. alcohol intake: former details: Quit in 1980 substance use type: does not use caffeine: Yes Type: coffee Number of servings: 2 ROS ROS Narrative Admission Review of Systems: CONSTITUTIONAL: No weight loss, fever, chills, + weakness or fatigue. HEENT: + Sore throat, mild congestion. Eyes: No visual loss, blurred vision, double vision or yellow sclerae. Ears, Nose, Throat: No hearing loss, sneezing. SKIN: No rash or itching, lesions, wounds. CARDIOVASCULAR: No chest pain, chest pressure or chest discomfort, palpitations, edema, orthopnea, syncopal events. RESPIRATORY: + shortness of breath, cough with occasional sputum, wheezing, No hemoptysis. GASTROINTESTINAL: + anorexia, No nausea, vomiting or diarrhea, abdominal pain, melena, BRBPR. GENITOURINARY: No dysuria, frequency, urgency or retention. NEUROLOGICAL: + Underlying dementia, some gait chronic imbalance, No headache, dizziness, syncope, paralysis, ataxia, numbness or tingling in the extremities, focal weakness, change in bowel or bladder control, seizure. MUSCULOSKELETAL: + muscle, back pain, joint pain or stiffness. HEMATOLOGIC:+ anemia, bleeding or bruising. LYMPHATICS: No enlarged nodes. No history of splenectomy. PSYCHIATRIC: +history of depression or anxiety. ENDOCRINOLOGIC: No reports of sweating, cold or heat intolerance. No polyuria or polydipsia. ALLERGIES: + history of asthma, rhinitis. Vital Signs Vital Signs Vital Signs: 07/22/22 12:44 07/22/22 13:43 07/22/22 13:43 Temperature 98.2 F Temperature Source Temporal Pulse Rate 91 85 Respiratory Rate 16 22 H Respiratory Effort Short of Breath Labored Respiratory Depth Shallow Respiratory Pattern Normal Blood Pressure 169/61 H Blood Pressure Mean 97 Pulse Ox 96 95 Oxygen Delivery Method Nasal Cannula Room Air Nasal Cannula Oxygen Flow Rate (L/min) 3 07/22/22 13:30 07/22/22 13:30 07/22/22 14:49 Temperature Temperature Source Pulse Rate 92 Respiratory Rate 21 H 21 H 21 H Respiratory Effort Short of Breath Respiratory Depth Respiratory Pattern Blood Pressure Blood Pressure Mean Pulse Ox 94 Oxygen Delivery Method Nasal Cannula Oxygen Flow Rate (L/min) 3 Weight Weight: 220 lb Body Mass Index (BMI) 34.4 Physical Exam Narrative Physical Examination: General: Awake, alert, oriented x 3 including to self, place and recent events but does have underlying dementia, remains cooperative, increased respiratory rate, some accessory muscle usage, fatigued appearing. Skin: Normal color, normal turgor, no icterus, no cyanosis except occasional staged ecchymoses. HEENT: AT/NC, EOMI, PERRLA, moderately dry MM, no carotid bruits or JVD noted; however difficult examination as thick yepez present. Lungs: Significantly diminished, greater bases, increased respiratory rate and some accessory muscle use use, rales bilaterally, expiratory wheezing throughout although diminished at the bases with decreased air movement. Heart: Currently regular rate and rhythm; no gallop, rub audible. Abdomen: Soft, obese, NTTP, ND, distant mildly hyperactive BS, no obvious HSM; however habitus makes evaluation difficult. Extremities: No cyanosis, no clubbing, very mild ankle nonpitting edema. Neurological: Patient awake, alert, oriented as noted, cognitive function intact with underlying baseline dementia per discussion with spouse which is currently stable and similar to his prior; pupils equally reactive to light and accommodation, cranial nerves grossly normal, moving all 4 extremities, no focal deficits, strength moderately to severely globally secondary to acute presentation. Psychiatric: Affect appears fatigued, flat, respiratory status as noted no acute evidence of depressive or anxiety feelings but does have underlying history Results Lab / Micro Data Result Diagrams: 07/22/22 13:37 07/22/22 13:37 Labs: Laboratory Results - last 24 hr 07/22/22 13:37: WBC 24.9 H, RBC 2.86 L, Hgb 9.4 L, Hct 27.8 L, MCV 97.2 H, MCH 32.9 H, MCHC 33.8, RDW Std Deviation 46.1 H, RDW Coeff of Anthony 13.1, Plt Count 304, MPV 8.8, Immature Gran % (Auto) 2.300 H, Neut % (Auto) 94.4 H, Lymph % (Auto) 1.2 L, Banks % (Auto) 1.8, Eos % (Auto) 0.1, Baso % (Auto) 0.2, Absolute Neuts (auto) 23.6 H, Absolute Lymphs (auto) 0.30 L, Nucleated RBC % 0 07/22/22 13:37: Sodium 132 L, Potassium 4.2, Chloride 99, Carbon Dioxide 24.0, Anion Gap 9, BUN 11, Creatinine 1.14, Estim Creat Clear Calc 56.37, Est GFR (MDRD) Af Amer 82, Est GFR (MDRD) Non-Af 67, BUN/Creatinine Ratio 9.6 L, Glucose 359 H, Calcium 8.7 07/22/22 13:37: Lactic Acid 3.4 H* Micro: Microbiology 07/22/22 13:37 Nasal Secretion SARS-CoV-2 & FLU Antigen (Rapid) - Final ABG Data ABG results: ABG 07/22/22 13:56 Specimen Type ART Sample Site L Brach pH 7.44 Bicarbonate Actual 22.5 Total CO2 24 Base Excess -2 O2 Saturation 96 ABG pCO2 33.2 L ABG pO2 74 L O2 Delivery Device Cannula Liter Flow 3.0 Radiology Impression Chest X-Ray 07/22/22 14:10 IMPRESSION: Patchy infiltrates at both lung bases more prominent on the left side. Electronically Signed: Mihir Muller MD at 14:50 EST , Assessment & Plan Assessment/Plan (1) Pneumonia: PLAN: Plan The patient is a 72 y/o M w/ PMHx: Anxiety and Depression, Dementia unclear type with unclear behavioral disturbance history, obesity, Chronic anemia/Fe deficiency anemia, CAD s/p PCI, HTN, HLD, Former Alcohol abuse, PAF/Flutter, COPD/Asthma with Chronic Hypoxic Respiratory Failure (2L NC-3L NC), ELISHA on BIPAP q HS, Hx prior GI bleed, Diabetes mellitus type II, Former tobacco use who presents to the [facility] ED on 07/22/22 with history of recent difficulties in June towards the end of the month with his breathing with significant wheezing with prednisone therapy at that time with initially improvement however he again worsened with evaluation per his instructional resource teacher Dr. Tavarez at the Friday prior with start on Bactrim at that time with a negative MRSA screen without marked improvement with ongoing significant cough, wheezing and desaturation with notable hypoxia with worsened symptoms with exertion with concurrent orthopnea with no recent associated fevers or chills however given his ongoing symptoms prompted ED evaluation. #1. Acute on chronic COPD/Asthma exacerbation w/ Acute Hypoxia on Chronic Hypoxic Respiratory Failure secondary to BL CAP with associated #2 lactic acidosis: Will admit to [facility], maintain on oxygen with wean as tolerated to home oxygen supplementation, BIPAP q HS, continue ATC duonebs, PRN albuterol, IV methylprednisolone, maintain on IV rocephin and azithromycin, requesting repeat sputum culture w/ recent sputum culture 07/19/2022 with final read as mixed normal marquita of note however he has been worsening, full respiratory viral panel, COVID PCR to be cautious, procalcitonin, HOB, IS parameters, low threshold to involve patient's instructional resource teacher if worsens or not improving. Continue home daliresp and singulair regimen. #2. Lactic acidosis: Suspected secondary to hypoxemia, continue treatment as noted above #1, trend lactic acid per facility protocol, continue judicious hydration. #3. Acute on Chronic anemia/iron deficiency anemia: Admission hemoglobin 9.4, prior to this on 07/10/2022 hemoglobin is 11.5 at that time however from records appears to vacillate, MCV is elevated, will continue iron supplementation, will trend CBC, guaiac as well as vitamin B12 and folic acid levels requested. #4. Dementia, unclear type with unclear behavioral disturbance history: Reported per significant, not on any current regimen, encourage strongly follow-up with patient's PCP for continued evaluation and treatment. #5. PAF/Flutter: We will continue patient home apixaban and metoprolol regimen. #6. CAD: Status post PCI, will continue patient aspirin, apixaban, atorvastatin, metoprolol, valsartan regimen. #7. Diabetes mellitus type II: Hold oral home regimen, ADA diet, accu checks w/ ISS. #8. Hypertension: Continue home regimen including valsartan, torsemide, nifedipine, metoprolol with hold parameters as needed, PRN hydralazine. #9. Hyperlipidemia: We will continue patient home statin therapy. #10. BPH: We will continue patient on Flomax regimen. #11. Former tobacco use: Encourage continued tobacco cessation. #12. Former alcohol abuse: Encouraged continued sobriety. #13. Obesity: Weight loss and lifestyle changes encouraged. #14. GERD: We will continue patient home PPI. #15. BPH: We will continue patient home Flomax regimen. #16. ELISHA: BiPAP nightly. #17. Anxiety and depression: We will continue patient home sertraline regimen. #18. DVT prophylaxis: SCDs, continue patient home apixaban regimen. #19. CODE status: Patient TORSETN is his he notes and living will is currently in place. Discussed CODE status at length including difference between FULL code, DNR-CCA and DNR-CC status. Following discussions about the differences in these status with both the patient and his who is present, requested Full Code status. Advanced Care Planning Face to Face Time: 18 minutes. Admission Evaluation Time spent evaluating chart, patient history, patient evaluation, care planning and discussion with specialists: 77 minutes. Charges/Coding Visit Charges Inpatient E&M: 86611 Init Hosp L3 Procedures Hospitalists Procedures: 55739 Advncd Care Plan 30 Min
[2022-07-22 15:09] LABS: Differential Comment SCANNED
[2022-07-22 16:10] LABS: Procalcitonin 0.19 ng/mL (0.00-0.09)
[2022-07-22 17:51] LABS: Reflex Lactate? Y
[2022-07-22 18:51] LABS: Bedside Glucose 463 mg/dL (74-106)
[2022-07-22 18:58] LABS: Lactic Acid 7.5 mmol/L (0.4-1.9)
[2022-07-22] MEDS: 0.9% Normal Saline 1,000 ML 999 ML IV (19:06)
[2022-07-22] MEDS: Insulin Lispro 100 UNIT/ML INSULN.PEN 20 UNIT SC (19:06)
[2022-07-22] MEDS: 0.9% Normal Saline 1,000 ML 125 ML IV (19:54)
[2022-07-22] MEDS: APIXABAN 5 MG TABLET PO (20:47)
[2022-07-22] MEDS: Ascorbic Acid 500 MG Tablet PO (20:47)
[2022-07-22] MEDS: Insulin Lispro 100 UNIT/ML INSULN.PEN SC (20:48)
[2022-07-22] MEDS: Gabapentin 300 MG Capsule PO (20:48)
[2022-07-22] MEDS: Atorvastatin Calcium 40 MG Tablet PO (20:49)
[2022-07-22] MEDS: Metoprolol Tartrate 25 MG Tablet PO (20:49)
[2022-07-22] MEDS: guaiFENesin 1,200 MG Tablet 1200 MG PO (20:49)
[2022-07-22 21:16] LABS: Bedside Glucose 325 mg/dL (74-106)
--- NOTE | 2022-07-22 23:41 | PCM.RX.CS ---
Consult Pharmacy has been consulted to manage selected antiobiotic: Vancomycin Type of Consult: New start Suspected Infection: Pneumonia Prior Doses of Antibiotics Received/Current Regimen: Medications Vancomycin HCl 1,250 mg/ (Sodium Chloride) 275 mls @ 167 mls/hr IV Q12H RAGHU Discontinued Medications Vancomycin HCl 2,000 mg/ (Sodium Chloride) 540 mls @ 250 mls/hr IV X1 ONE Stop: 07/22/22 22:09 Last Admin: 07/22/22 20:40 Dose: 250 mls/hr Labs: Sodium 132 mmol/L (136-145) L 07/22/22 13:37 Potassium 4.2 mmol/L (3.5-5.1) 07/22/22 13:37 Chloride 99 mmol/L (98-107) 07/22/22 13:37 Carbon Dioxide 24.0 mmol/L (21.0-32.0) 07/22/22 13:37 Anion Gap 9 (5-15) 07/22/22 13:37 BUN 11 mg/dL (7-18) 07/22/22 13:37 Creatinine 1.14 mg/dL (0.70-1.30) 07/22/22 13:37 Est GFR (MDRD) Af Amer 82 mL/min (>60) 07/22/22 13:37 Est GFR (MDRD) Non-Af 67 mL/min (>60) 07/22/22 13:37 BUN/Creatinine Ratio 9.6 RATIO (10-20) L 07/22/22 13:37 Glucose 359 mg/dL (74-106) H 07/22/22 13:37 Microbiology: Microbiology 07/22/22 17:28 Interface Orders Respiratory Panel (PCR) - Final 07/22/22 19:05 Urine, Random Streptococcus pneumoniae Antigen (M - Final 07/22/22 19:05 Urine, Clean Catch Legionella Antigen - Final 07/22/22 13:37 Nasal Secretion SARS-CoV-2 & FLU Antigen (Rapid) - Final Weight used for dosin.8 kg Estimated Creatinine Clearance: 67.6 Goal Trough: 15-20 mcg/mL Pharmacy Plan for Drug Dosing: Pharmacy Service will continue to monitor and adjust dosing as required. Follow-Up Labs: Trough Vancomycin Labs to be done on [date and time ordered]: 07/24/22 @0800
[2022-07-23] VITALS (20 sets, daily range): BP systolic 151–176; BP diastolic 54–89; PULSE 55–134; RESP 16–28; TEMP 36.3–37.1; O2SAT 83–96
[2022-07-23] MEDS: Losartan Potassium 100 MG Tablet PO (06:05)
[2022-07-23] MEDS: Gabapentin 300 MG Capsule PO ×3 (06:05→22:53)
[2022-07-23] MEDS: Metoprolol Tartrate 25 MG Tablet PO ×2 (06:05→22:44)
[2022-07-23] MEDS: NIFEdipine 90 MG Tablet PO (06:07)
[2022-07-23 06:09] LABS: Absolute Lymphocyte Count 0.53 X10^3/uL (0.83-4.51); Absolute Neutrophil Count 17.1 X10^3/uL (2.0-7.7); Basophil# 0.02 X10^3/uL; Basophil% 0.1 % (0-1); Hemoglobin 9.1 g/dL (13.0-16.5); Lymphocyte # 0.53 X10^3/ul (0.83-4.51); Lymphocyte % 2.9 % (19-41); Mean Corp Hgb Conc 32.5 g/dL (32-36); Mean Corpuscular Hgb 31.9 pg (27.0-32.0); Mean Corpuscular Volume 98.2 fL (80-94); Mean Platelet Vol. 8.6 fl (6.2-12.0); Monocyte# 0.45 X10^3/uL; Monocyte% 2.4 % (0-10); NRBC Flagged by Analyzer 0 % (0-5); Neutrophil # 17.12 X10^3/uL (2.7-7.7); Neutrophil % 92.4 % (47-70); POSITIVE DIFFERENTIAL YES; Platelet Count 305 K/mm3 (150-450); RBC Distribution Width CV 13.3 % (11.6-14.6); RBC Distribution Width SD 47.9 fl (35.1-43.9); Red Blood Count 2.85 M/mm3 (4.6-6.2); White Blood Count 18.5 K/mm3 (4.4-11.0)
[2022-07-23] MEDS: Insulin Lispro 100 UNIT/ML INSULN.PEN SC ×4 (06:30→23:03)
[2022-07-23 06:37] LABS: Differential Indicated SCAN CRITERIA MET
[2022-07-23 06:48] LABS: ALB/GLOB Ratio 0.7 RATIO (0.9-2.4); AST(SGOT) 20 U/L (15-37); Alanine Aminotransfer ALT/SGPT 34 U/L (16-61); Albumin, Serum 2.7 g/dL (3.2-5.0); Alkaline Phosphatase 98 U/L (45-117); Anion Gap 11 (5-15); BUN 13 mg/dL (7-18); BUN/Creat Ratio 16.3 RATIO (10-20); Calcium,Total 8.4 mg/dL (8.5-10.1); Chloride 105 mmol/L (98-107); EST Glomerular Filtration Rate 102 mL/min (>60); Est Glom Filt Rate - Afr Amer 124 mL/min (>60); Estimated Creatinine Clearance 80.33 ml/min; Globulin 3.9 g/dL (2.2-4.2); Glucose 219 mg/dL (74-106); Potassium 4.1 mmol/L (3.5-5.1); Protein, Total 6.6 g/dL (6.4-8.2); Sodium Level 139 mmol/L (136-145)
[2022-07-23 06:51] LABS: Bedside Glucose 210 mg/dL (74-106)
[2022-07-23 06:57] LABS: Differential Comment SCANNED
--- NOTE | 2022-07-23 07:57 | PN.HOSP_ITS ---
Subjective Subjective Follow-up for COPD exacerbation, pneumonia and shortness of breath. Objective Data Objective Data Vital Signs: Vital Signs Temp Pulse Resp BP Pulse Ox O2 Del Method O2 Flow Rate 97.7 F L 88 21 H 169/64 H 96 Nasal Cannula 3 07/23/22 06:00 07/23/22 06:05 07/23/22 06:17 07/23/22 06:05 07/23/22 06:00 07/23/22 06:17 07/23/22 06:17 Oxygen Flow Rate (L/min) 3 Oxygen Delivery Method Nasal Cannula Weight: 219 lb 12.8 oz Body Mass Index (BMI) 34.4 Intake & Output: Intake and Output for Last 24 Hours 07/21/22 07/22/22 07/23/22 23:59 23:59 23:59 Intake Total 1371.875 / 2050.778 6961.75 / 3740.75 Output Total 1200 / 1200 Balance 1371.875 / 7943.128 3448.75 / 2540.75 Lab / Micro Data Result Diagrams: 07/23/22 05:55 07/23/22 05:55 Labs: Laboratory Results - last 24 hr 07/22/22 13:37: WBC 24.9 H, RBC 2.86 L, Hgb 9.4 L, Hct 27.8 L, MCV 97.2 H, MCH 32.9 H, MCHC 33.8, RDW Std Deviation 46.1 H, RDW Coeff of Anthony 13.1, Plt Count 304, MPV 8.8, Immature Gran % (Auto) 2.300 H, Neut % (Auto) 94.4 H, Lymph % (Auto) 1.2 L, [place] % (Auto) 1.8, Eos % (Auto) 0.1, Baso % (Auto) 0.2, Absolute Neuts (auto) 23.6 H, Absolute Lymphs (auto) 0.30 L, Nucleated RBC % 0, Differential Comment SCANNED, Diff Path Review November07/22/22 13:37: Sodium 132 L, Potassium 4.2, Chloride 99, Carbon Dioxide 24.0, Anion Gap 9, BUN 11, Creatinine 1.14, Estim Creat Clear Calc 56.37, Est GFR (MDRD) Af Amer 82, Est GFR (MDRD) Non-Af 67, BUN/Creatinine Ratio 9.6 L, Glucose 359 H, Calcium 8.7 07/22/22 13:37: Lactic Acid 3.4 H* 07/22/22 15:20: COVID-19 (ANN) Not Detected 07/22/22 15:22: Procalcitonin 0.19 H 07/22/22 18:15: Lactic Acid 7.5 H* 07/22/22 18:28: POC Glucose 463 H* 07/22/22 20:47: POC Glucose 325 H 07/23/22 05:55: WBC 18.5 H, RBC 2.85 L, Hgb 9.1 L, Hct 28.0 L, MCV 98.2 H, MCH 31.9, MCHC 32.5, RDW Std Deviation 47.9 H, RDW Coeff of Anthony 13.3, Plt Count 305, MPV 8.6, Immature Gran % (Auto) 2.200 H, Neut % (Auto) 92.4 H, Lymph % (Auto) 2.9 L, [place] % (Auto) 2.4, Eos % (Auto) 0.0, Baso % (Auto) 0.1, Absolute Neuts (auto) 17.1 H, Absolute Lymphs (auto) 0.53 L, Nucleated RBC % 0, Differential Comment SCANNED 07/23/22 05:55: Sodium 139, Potassium 4.1, Chloride 105, Carbon Dioxide 23.0, Anion Gap 11, BUN 13, Creatinine 0.80, Estim Creat Clear Calc 80.33, Est GFR (MDRD) Af Amer 124, Est GFR (MDRD) Non-Af 102, BUN/Creatinine Ratio 16.3, Glucose 219 H, Calcium 8.4 L, Total Bilirubin 0.40, AST 20, ALT 34, Alkaline Phosphatase 98, Total Protein 6.6, Albumin 2.7 L, Globulin 3.9, Albumin/Globulin Ratio 0.7 L, Folate 9.60 07/23/22 06:26: POC Glucose 210 H Micro: Microbiology 07/22/22 23:40 Stool Stool Occult Blood (TIMOTEO) - Final Occult Blood Positive 07/22/22 17:28 Interface Orders Respiratory Panel (PCR) - Final 07/22/22 19:05 Urine, Random Streptococcus pneumoniae Antigen (M - Final 07/22/22 19:05 Urine, Clean Catch Legionella Antigen - Final 07/22/22 13:37 Nasal Secretion SARS-CoV-2 & FLU Antigen (Rapid) - Final ABG Data ABG results: ABG 07/22/22 13:56 Specimen Type ART Sample Site L Brach pH 7.44 Bicarbonate Actual 22.5 Total CO2 24 Base Excess -2 O2 Saturation 96 ABG pCO2 33.2 L ABG pO2 74 L O2 Delivery Device Cannula Liter Flow 3.0 Radiography Diagnostic Testing: Radiology Impression Chest X-Ray 07/22/22 14:10 IMPRESSION: Patchy infiltrates at both lung bases more prominent on the left side. Electronically Signed: Mihir Muller MD at 14:50 EST , Physical Exam Narrative Physical exam General: Alert, Oriented x3, Cooperative, mild respiratory distress HEENT: Atraumatic, PERRLA, EOMI, Normocephalic Oral: Oral mucosa dry. Could not visualize deep oropharyngeal structures. No Gingival or Mucosal Lesions/ Ulcerations Neck: Supple, No JVD, Negative Carotid Bruits Lungs: Air entry diminished in all lung lim. Bilateral expiratory rhonchi and wheezing. Mild hypoxia and tachypnea Cardiovascular: Sinus tachycardia, Normal S1, Normal S2, No murmurs Abdomen: Bowel Sounds Present, Soft, Non Tender, mild abdominal distention : No renal angle tenderness. No suprapubic tenderness. Extremities: No edema, Capillary Refill Less than 3 Seconds Skin: No rashes, No breakdown Musculoskeletal: No Tenderness to Palpation of Joints or Extremities, ROM restricted. Neurological: Cranial nerves II-XII grossly intact, DTR 2+/4 and Symmetrical, Neuro grossly intact Psych/Mental Status: Flat affect. Assessment & Plan Assessment/Plan (1) Pneumonia: PLAN: Plan The patient is a 72 y/o M who is admitted with a difficulty in breathing, shortness of breath, Cough, wheezing, hypoxia, dyspnea on exertion, orthopnea since June 2022. Patient follows Dr. Tavarez last seen on Friday and was started on Bactrim.mild improvement. Denies fever chills #1. Chronic hypoxic respiratory failure with COPD/asthma exacerbation due to bilateral pneumonia, left worse than right with lactic acidosis:. As per the night hospitalist, patient worsened last night. Antibiotic was broadened to IV Zosyn and vancomycin after started on Rocephin and Zithromax at time of admission. Respiratory panel, urinary antigens are negative. ABG shows pH 7.4 on 3 L of oxygen suggestive of mild respiratory alkalosis. Improvement in leukocytosis. Patient on bronchodilator, Solu-Medrol, incentive spirometry and Mucinex. Patient was seen by lubrication worker Dr. Tavarez and discussed with him. Patient has tachypnea mild hypoxia, respiratory distress, leukocytosis and lactic acidosis but no hypotension. Patient lab features including creatinine, total bilirubin, ABG not suggestive of sepsis. Monitor but sepsis-like likely Patient also mild abdominal distention but moving small bowel. Abdominal distention may be due to swallowing air. Dulcolax 5 mg ordered. #2. Lactic acidosis: Suspected secondary to hypoxemia, increased. #3. Acute on Chronic anemia/iron deficiency anemia: Admission hemoglobin 9.4, 11.5 gm on 07/10/2022. #4. Dementia, unclear type with unclear behavioral disturbance history: Re ported per significant, not on any current regimen, encourage strongly follow-up with patient's PCP for continued evaluation and treatment. #5. PAF/Flutter: continue patient home apixaban and metoprolol regimen. #6. CAD: Status post PCI, will continue patient aspirin, apixaban, atorvastatin, metoprolol, valsartan regimen. #7. Diabetes mellitus type II: Hold oral home regimen, ADA diet, accu checks w/ ISS. #8. Hypertension: Continue home regimen including valsartan, torsemide, nifedipine, metoprolol with hold parameters as needed, PRN hydralazine. #9. Hyperlipidemia: We will continue patient home statin therapy. #10. BPH: We will continue patient on Flomax regimen. #11. Former tobacco use: Encourage continued tobacco cessation. #12. Former alcohol abuse: Encouraged continued sobriety. #13. Obesity: Weight loss and lifestyle changes encouraged. #14. GERD: We will continue patient home PPI. #15. BPH: continue patient home Flomax regimen. #16. ELISHA: BiPAP nightly. #17. Anxiety and depression:continue patient home sertraline regimen. #18. DVT prophylaxis: SCDs, continue patient home apixaban regimen. #19. CODE status: Patient HCPOA is his he notes and living will is currently in place. Discussed CODE status at length including difference between FULL code, DNR-CCA and DNR-CC status. Following discussions about the differences in these status with both the patient and his who is present, requested Full Code status. Total time of the visit including total time spent in counseling or coordination of care, (more than 50% of the total time, spent in obtaining medical information from nurses and other ancillary care providers,explaining to the patient about labs, imaging, diagnosis and management of active complex medical conditions), discussion with customer service and sales consultant, review of labs and imaging is 55 minutes minutes. Charges/Coding Visit Charges Inpatient E&M: 60880 Subs Hosp L3
--- NOTE | 2022-07-23 08:00 | NURSING ---
pt sats dropped to 83% on 3l when up to br for bm. hr 134. pt with mod resp distress and head bobbing when returned to bed. o2 turned to 4l. cps called for aerosol. pt coughing up yellow sputum this am and sample sent. spo2 up to 97% after 5min and breathing better.
[2022-07-23] MEDS: Albuterol 2.5 MG/3 ML VIAL.NEB. INHALATION (08:05)
[2022-07-23 08:33] LABS: Vitamin B12 344 pg/mL (211-911)
[2022-07-23] MEDS: Ferrous Gluconate 324 MG Tablet PO ×2 (08:52→18:11)
[2022-07-23] MEDS: Pantoprazole Sodium 40 MG Tablet PO (08:53)
[2022-07-23] MEDS: Tamsulosin HCl 0.4 MG Capsule PO (08:53)
[2022-07-23] MEDS: Magnesium Chloride 64 MG Delay Rel.Tablet 128 MG PO (08:54)
[2022-07-23] MEDS: Montelukast 10 MG Tablet PO (08:54)
[2022-07-23] MEDS: Ascorbic Acid 500 MG Tablet PO ×2 (08:54→22:45)
[2022-07-23] MEDS: Furosemide 20 MG Tablet 10 MG PO (08:54)
[2022-07-23] MEDS: Sertraline 50 MG Tablet PO (08:55)
[2022-07-23] MEDS: 0.9% Saline Lock 10 ML Syringe IV ×2 (08:56→18:10)
[2022-07-23 09:48] LABS: M R Staph aureus DNA By PCR Negative (Negative); Probe Check PASS; Specimen Processing Control PASS
[2022-07-23] MEDS: guaiFENesin/D-Methorphan TAB.SR.12H 2 TABLET PO ×2 (09:57→22:44)
[2022-07-23 11:18] LABS: International Normalized Ratio 1.3; Prothrombin Time (Protime)PT. 15.8 SECONDS (11.7-14.9)
--- NOTE | 2022-07-23 11:18 | CASEMGMT ---
TORRIE MILLIGAN Assessment: Face to Face with pt for initial transition planning/care coordination assessment. TORRIE MILLIGAN introduced self and role at [facility], pt voices understanding and consents to assessment. Pt is A/O x4 and answers all questions appropriately at this time. Pt defers to in room to answer questions. Pt states pt does have dementia. Care providers, pharmacy, and demographics verified/updated. Admitting Dx: COPD exac, acute hypoxic on chronic, bilat pna PCP:Kirby Specialists:M[place]un, cardio; Daysi, pulm; CHRISTIANO Paez, ANNIE Boyer Preferred Pharmacy: [facility] Insurance: [employer] Prescription Benefit: yes LNOK: Aviva Levy, Living Arrangements: Pt lives with , mother in law and 19 year old granddtr in a single story house with a ramp to enter. Pt reports most days pt is I in ADL's. Pt denies concerns at home. Transportation: Pt transports pt to medical appts. DME/HHC/SNF: Pt has a BGM with sufficient supplies of lancets and strips. Pt states he does not check his blood sugars as often as he should. Pt has a rollator, w/c and pox at home. [facility]. Pt has been using 3L cont. Will confirm rx. Per pt , pt is involved with the home based healthcare team who is assessing pt needs at home. She does not have any contact info with her on this. TORRIE MILLIGAN will try to reach out. Pt states no concerns with going home at time of dc. Pt would [facility] with the [facility]. Pt states no further concerns/needs. CM to follow. Advised pt to ask CM if any further question/concerns/needs arise, voices understanding. Pt Goal: Home Plan: Home
[2022-07-23 11:19] LABS: Partial Thromboplast Time 33.8 Seconds (24.1-36.2)
[2022-07-23] MEDS: Ipratropium/Albuterol Sulfate 3 ML AMPUL.NEB INHALATION ×3 (11:34→23:00)
[2022-07-23 12:20] LABS: Bedside Glucose 273 mg/dL (74-106)
[2022-07-23 15:24] LABS: Pathologist Review Reviewed
[2022-07-23 17:40] LABS: Bedside Glucose 355 mg/dL (74-106)
[2022-07-23] MEDS: Atorvastatin Calcium 40 MG Tablet PO (22:45)
[2022-07-23] MEDS: hydrALAZINE 20 MG/ML Vial 10 MG IV (22:59)
[2022-07-24] VITALS (13 sets, daily range): BP systolic 148–157; BP diastolic 60–77; PULSE 61–99; RESP 16–20; TEMP 36.5–36.8; O2SAT 91–96
[2022-07-24 03:35] LABS: Bedside Glucose 414 mg/dL (74-106)
[2022-07-24] MEDS: Gabapentin 300 MG Capsule PO ×3 (05:16→22:51)
[2022-07-24] MEDS: Insulin Lispro 100 UNIT/ML INSULN.PEN SC ×4 (06:19→22:53)
[2022-07-24 06:50] LABS: Bedside Glucose 299 mg/dL (74-106)
[2022-07-24] MEDS: Ipratropium/Albuterol Sulfate 3 ML AMPUL.NEB INHALATION ×4 (07:48→23:28)
[2022-07-24 08:19] LABS: Absolute Lymphocyte Count 0.62 X10^3/uL (0.83-4.51); Absolute Neutrophil Count 14.9 X10^3/uL (2.0-7.7); Basophil# 0.04 X10^3/uL; Basophil% 0.2 % (0-1); Hematocrit 30.7 % (40-54); Lymphocyte # 0.62 X10^3/ul (0.83-4.51); Lymphocyte % 3.8 % (19-41); Mean Corp Hgb Conc 32.6 g/dL (32-36); Mean Corpuscular Hgb 32.2 pg (27.0-32.0); Mean Corpuscular Volume 98.7 fL (80-94); Mean Platelet Vol. 8.6 fl (6.2-12.0); Monocyte# 0.32 X10^3/uL; NRBC Flagged by Analyzer 0 % (0-5); Neutrophil % 91.7 % (47-70); Platelet Count 369 K/mm3 (150-450); RBC Distribution Width CV 13.5 % (11.6-14.6); RBC Distribution Width SD 48.5 fl (35.1-43.9); Red Blood Count 3.11 M/mm3 (4.6-6.2); White Blood Count 16.3 K/mm3 (4.4-11.0)
--- NOTE | 2022-07-24 08:29 | PN.HOSP_ITS ---
Subjective Subjective Follow-up for complicated pneumonia with history of COPD/chronic lung disease Objective Data Objective Data Vital Signs: Vital Signs Temp Pulse Resp BP Pulse Ox O2 Del Method O2 Flow Rate 98.2 F 81 20 H 157/62 H 96 Nasal Cannula 3 07/24/22 03:22 07/24/22 03:22 07/24/22 03:22 07/24/22 03:22 07/24/22 03:22 07/24/22 03:22 07/24/22 03:22 Oxygen Flow Rate (L/min) 3 Oxygen Delivery Method Nasal Cannula Weight: 220 lb 14.451 oz Body Mass Index (BMI) 34.4 Intake & Output: Intake and Output for Last 24 Hours 07/22/22 07/23/22 07/24/22 23:59 23:59 23:59 Intake Total 1371.875 / 1359.565 3784.88 / 5673.88 1650 / 1650 Output Total 1825 / 2625 2175 / 2175 Balance 1371.875 / 3078.998 7035.88 / 3048.88 -525 / -525 Lab / Micro Data Result Diagrams: 07/24/22 08:00 07/24/22 08:00 Labs: Laboratory Results - last 24 hr 07/22/22 13:37: Diff Path Review Reviewed 07/22/22 23:20: MRSA (PCR) Negative 07/23/22 05:55: Vitamin B12 344 07/23/22 10:23: PT 15.8 H, INR 1.3, APTT 33.8 07/23/22 11:40: POC Glucose 273 H 07/23/22 17:22: POC Glucose 355 H 07/23/22 23:02: POC Glucose 414 H 07/24/22 06:12: POC Glucose 299 H 07/24/22 08:00: WBC 16.3 H, RBC 3.11 L, Hgb 10.0 L, Hct 30.7 L, MCV 98.7 H, MCH 32.2 H, MCHC 32.6, RDW Std Deviation 48.5 H, RDW Coeff of Anthony 13.5, Plt Count 369, MPV 8.6, Immature Gran % (Auto) 2.300 H, Neut % (Auto) 91.7 H, Lymph % (Auto) 3.8 L, [place] % (Auto) 2.0, Eos % (Auto) 0.0, Baso % (Auto) 0.2, Absolute Neuts (auto) 14.9 H, Absolute Lymphs (auto) 0.62 L, Nucleated RBC % 0 Micro: Microbiology 07/22/22 15:05 Blood Culture (Wb) - Left Forearm Blood Culture - Preliminary No growth in 48 hours. 07/22/22 15:09 Blood Culture (Wb) - Right Hand Blood Culture - Preliminary No growth in 48 hours. 07/23/22 08:10 Sputum, Expectorated/Coughed Gram Stain - Final 07/22/22 23:40 Stool Stool Occult Blood (TIMOTEO) - Final Occult Blood Positive 07/22/22 17:28 Interface Orders Respiratory Panel (PCR) - Final 07/22/22 19:05 Urine, Random Streptococcus pneumoniae Antigen (M - Final 07/22/22 19:05 Urine, Clean Catch Legionella Antigen - Final 07/22/22 13:37 Nasal Secretion SARS-CoV-2 & FLU Antigen (Rapid) - Final Physical Exam Narrative Seen and examined and discussed with patient's near the bedside. Patient shortness of breath is improved. Patient is able to bring up some phlegm but not a lot. No chest pain or tightness. No fever. Physical exam General: Alert, Oriented x3, Cooperative, mild respiratory distress HEENT: Atraumatic, PERRLA, EOMI, Normocephalic Oral: Oral mucosa dry. Could not visualize deep oropharyngeal structures. No Gingival or Mucosal Lesions/ Ulcerations Neck: Supple, No JVD, Negative Carotid Bruits Lungs: Air entry diminished in all lung lim. Mild bilateral expiratory rhonchi. Tachypnea resolved. Mild hypoxia. Cardiovascular: Sinus tachycardia, Normal S1, Normal S2, No murmurs Abdomen: Bowel Sounds Present, Soft, Non Tender, mild abdominal distention : No renal angle tenderness. No suprapubic tenderness. Extremities: No edema, Capillary Refill Less than 3 Seconds Skin: No rashes, No breakdown Musculoskeletal: No Tenderness to Palpation of Joints or Extremities, ROM restricted. Neurological: Cranial nerves II-XII grossly intact, DTR 2+/4 and Symmetrical, Neuro grossly intact Psych/Mental Status: Flat affect. Assessment & Plan Assessment/Plan (1) Pneumonia: PLAN: Plan The patient is a 72 y/o M who is admitted with a difficulty in breathing, shortness of breath, Cough, wheezing, hypoxia, dyspnea on exertion, orthopnea since June 2022. Patient follows Dr. Tavarez last seen on Friday and was s tarted on Bactrim.mild improvement. Denies fever chills #1. Chronic hypoxic respiratory failure with COPD/asthma exacerbation due to bilateral pneumonia, left worse than right with lactic acidosis:. As per the night hospitalist, patient worsened last night. Antibiotic was broadened to IV Zosyn and vancomycin after started on Rocephin and Zithromax at time of admission. Respiratory panel, urinary antigens are negative. ABG shows pH 7.4 on 3 L of oxygen suggestive of mild respiratory alkalosis. Improvement in leukocytosis. Patient on bronchodilator, Solu-Medrol, incentive spirometry and Mucinex. Patient was seen by hydraulic boom operator Dr. Tavarez and discussed with him. Patient has tachypnea mild hypoxia, respiratory distress, leukocytosis and lactic acidosis but no hypotension. Patient lab features including creatinine, total bilirubin, ABG not suggestive of sepsis. Monitor but sepsis-like likely Patient also mild abdominal distention but moving small bowel. Abdominal distention may be due to swallowing air. Dulcolax 5 mg ordered. 07/24: Blood culture x2 negative for more than 48 hours. Gram stain shows rare gram-positive cocci, 1+ white blood cells. Continue IV antibiotics vancomycin and Zosyn, bronchodilator Solu-Medrol. Aggressive pulmonary hygiene with PEP and incentive spirometry. Go cytosis improved. Microbiology Past 72 Hours 07/22/22 15:05 Blood Culture (Wb) - Left Forearm Blood Culture - Preliminary No growth in 48 hours. 07/22/22 15:09 Blood Culture (Wb) - Right Hand Blood Culture - Preliminary No growth in 48 hours. 07/23/22 08:10 Sputum, Expectorated/Coughed Gram Stain - Final 07/22/22 23:40 Stool Stool Occult Blood (TIMOTEO) - Final Occult Blood Positive 07/22/22 17:28 Interface Orders Respiratory Panel (PCR) - Final 07/22/22 19:05 Urine, Random Streptococcus pneumoniae Antigen (M - Final 07/22/22 19:05 Urine, Clean Catch Legionella Antigen - Final 07/22/22 13:37 Nasal Secretion SARS-CoV-2 & FLU Antigen (Rapid) - Final Laboratory Results 07/22/22 13:37: Diff Path Review Reviewed 07/23/22 10:23: PT 15.8 H, INR 1.3, APTT 33.8 07/23/22 11:40: POC Glucose 273 H 07/23/22 17:22: POC Glucose 355 H 07/23/22 23:02: POC Glucose 414 H 07/24/22 06:12: POC Glucose 299 H 07/24/22 08:00: Vancomycin Trough 6.2 07/24/22 08:00: WBC 16.3 H, RBC 3.11 L, Hgb 10.0 L, Hct 30.7 L, MCV 98.7 H, MCH 32.2 H, MCHC 32.6, RDW Std Deviation 48.5 H, RDW Coeff of Anthony 13.5, Plt Count 369, MPV 8.6, Immature Gran % (Auto) 2.300 H, Neut % (Auto) 91.7 H, Lymph % (Auto) 3.8 L, [place] % (Auto) 2.0, Eos % (Auto) 0.0, Baso % (Auto) 0.2, Absolute Neuts (auto) 14.9 H, Absolute Lymphs (auto) 0.62 L, Nucleated RBC % 0 07/24/22 08:00: Sodium 138, Potassium 3.6, Chloride 103, Carbon Dioxide 25.0, Anion Gap 10, BUN 15, Creatinine 0.98, Estim Creat Clear Calc 65.58, Est GFR (MDRD) Af Amer 98, Est GFR (MDRD) Non-Af 81, BUN/Creatinine Ratio 15.4, Glucose 290 H, Calcium 9.4 #2. Lactic acidosis: Suspected secondary to hypoxemia, increased. #3. Acute on Chronic anemia/iron deficiency anemia: Admission hemoglobin 9.4, 11.5 gm on 07/10/2022. 07/24: Stool for occult blood is positive. Hemoglobin is 10. Platelet count normal. #4. Dementia, unclear type with unclear behavioral disturbance history: Reported per significant, not on any current regimen, encourage strongly follow- up with patient's PCP for continued evaluation and treatment. #5. PAF/Flutter: continue patient home apixaban and metoprolol regimen. #6. CAD: Status post PCI, will continue patient aspirin, apixaban, atorvastatin, metoprolol, valsartan regimen. #7. Diabetes mellitus type II: Hold oral home regimen, ADA diet, accu checks w/ ISS. #8. Hypertension: Continue home regimen including valsartan, torsemide, nifedipine, metoprolol with hold parameters as needed, PRN hydralazine. #9. Hyperlipidemia: We will continue patient home statin therapy. #10. BPH: We will continue patient on Flomax regimen. #11. Former tobacco use: Encourage continued tobacco cessation. #12. Former alcohol abuse: Encouraged continued sobriety. #13. Obesity: Weight loss and lifestyle changes encouraged. #14. GERD: We will continue patient home PPI. #15. BPH: continue patient home Flomax regimen. #16. ELISHA: BiPAP nightly. #17. Anxiety and depression:continue patient home sertraline regimen. #18. DVT prophylaxis: SCDs, continue patient home apixaban regimen. #19. CODE status: Patient TORSTEN is his he notes and living will is currently in place. Discussed CODE status at length including difference between FULL code, DNR-CCA and DNR-CC status. Following discussions about the di fferences in these status with both the patient and his who is present, requested Full Code status. Total time of the visit including total time spent in counseling or coordination of care, (more than 50% of the total time, spent in obtaining medical information from nurses and other ancillary care providers,explaining to the patient about labs, imaging, diagnosis and management of active complex medical conditions), discussion with individual pension consultant, review of labs and imaging is 45 minutes minutes. Charges/Coding Visit Charges Inpatient E&M: 14969 Subs Hosp L3
[2022-07-24] MEDS: Ascorbic Acid 500 MG Tablet PO ×2 (08:41→22:51)
[2022-07-24] MEDS: Magnesium Chloride 64 MG Delay Rel.Tablet 128 MG PO (08:41)
[2022-07-24] MEDS: Sertraline 50 MG Tablet PO (08:41)
[2022-07-24] MEDS: Montelukast 10 MG Tablet PO (08:41)
[2022-07-24 08:42] LABS: Anion Gap 10 (5-15); BUN 15 mg/dL (7-18); BUN/Creat Ratio 15.4 RATIO (10-20); Calcium,Total 9.4 mg/dL (8.5-10.1); Chloride 103 mmol/L (98-107); Creatinine, Serum 0.98 mg/dL (0.70-1.30); EST Glomerular Filtration Rate 81 mL/min (>60); Est Glom Filt Rate - Afr Amer 98 mL/min (>60); Estimated Creatinine Clearance 65.58 ml/min; Glucose 290 mg/dL (74-106); Potassium 3.6 mmol/L (3.5-5.1); Sodium Level 138 mmol/L (136-145)
[2022-07-24] MEDS: guaiFENesin/D-Methorphan TAB.SR.12H 2 TABLET PO ×2 (08:42→22:51)
[2022-07-24] MEDS: Pantoprazole Sodium 40 MG Tablet PO (08:42)
[2022-07-24] MEDS: Losartan Potassium 100 MG Tablet PO (08:42)
[2022-07-24] MEDS: Metoprolol Tartrate 25 MG Tablet PO ×2 (08:42→22:51)
[2022-07-24] MEDS: Tamsulosin HCl 0.4 MG Capsule PO (08:42)
[2022-07-24] MEDS: Ferrous Gluconate 324 MG Tablet PO (08:42)
[2022-07-24] MEDS: Furosemide 20 MG Tablet 10 MG PO ×2 (08:42→11:13)
[2022-07-24] MEDS: NIFEdipine 90 MG Tablet PO (08:42)
[2022-07-24 08:46] LABS: Vancomycin, Trough Level 6.2 ug/mL (5.0-15.0)
--- NOTE | 2022-07-24 09:26 | PCM.RX.CS ---
Consult Pharmacy has been consulted to manage selected antiobiotic: Vancomycin Type of Consult: Follow-up Suspected Infection: Pneumonia Prior Doses of Antibiotics Received/Current Regimen: 1250MG IV Q12H. Labs: Sodium 138 mmol/L (136-145) 07/24/22 08:00 Potassium 3.6 mmol/L (3.5-5.1) 07/24/22 08:00 Chloride 103 mmol/L (98-107) 07/24/22 08:00 Carbon Dioxide 25.0 mmol/L (21.0-32.0) 07/24/22 08:00 Anion Gap 10 (5-15) 07/24/22 08:00 BUN 15 mg/dL (7-18) 07/24/22 08:00 Creatinine 0.98 mg/dL (0.70-1.30) 07/24/22 08:00 Est GFR (MDRD) Af Amer 98 mL/min (>60) 07/24/22 08:00 Est GFR (MDRD) Non-Af 81 mL/min (>60) 07/24/22 08:00 BUN/Creatinine Ratio 15.4 RATIO (10-20) 07/24/22 08:00 Glucose 290 mg/dL (74-106) H 07/24/22 08:00 Vancomycin Trough 6.2 ug/mL (5.0-15.0) 07/24/22 08:00 Microbiology: Microbiology 07/22/22 15:05 Blood Culture (Wb) - Left Forearm Blood Culture - Preliminary No growth in 48 hours. 07/22/22 15:09 Blood Culture (Wb) - Right Hand Blood Culture - Preliminary No growth in 48 hours. 07/23/22 08:10 Sputum, Expectorated/Coughed Gram Stain - Final 07/22/22 23:40 Stool Stool Occult Blood (TIMOTEO) - Final Occult Blood Positive 07/22/22 17:28 Interface Orders Respiratory Panel (PCR) - Final 07/22/22 19:05 Urine, Random Streptococcus pneumoniae Antigen (M - Final 07/22/22 19:05 Urine, Clean Catch Legionella Antigen - Final 07/22/22 13:37 Nasal Secretion SARS-CoV-2 & FLU Antigen (Rapid) - Final Weight used for dosin.2 kg Estimated Creatinine Clearance: 79 ml/min Goal Trough: 15-20 mcg/mL Pharmacy Plan for Drug Dosing: Trough today was 6.2. Renal function decreased with change of Cr 0.8 to 0.98. Upon review of administration documentation, appears evening dose of 1.10.23 was not administered. This would explain low trough level of 6.2 which would be ~23 hrs post last dose. Have ordered another trough level for tomorrow 1.12.23 before another 3rd dose. Pharmacy Service will continue to monitor and adjust dosing as required. Follow-Up Labs: Trough Vancomycin - 1.12.23 @0800 before 0830 dose
--- NOTE | 2022-07-24 11:08 | CASEMGMT ---
Addendum entered by Nafisa Finley 07/24/22 15:39: Therapy not ordered, no 6 clicks, asked RN to complete. RN CHEL in to pt room to discuss dc planning, spoke with pt and . Currently they would like the [facility] to continue instead of having H[facility] skilled more frequently in the home. Pt states pt has a HEP that was given by the [facility]. She states she sets up pt meds. TORRIE MILLIGAN to follow for any changes. Addendum entered by Nafisa Finley 07/24/22 11:28: Received tc back from Christos at the [facility]. He states pt is active with home based primary care which includes a team of nurses, therapist, psychologists, etc. States pt has mostly received OT and psychology. He states if pt needs increased care, this can be set up with his primary insurance and the [facility] should be notified to decrease their services. He shows pt is on 3-4L of oxygen with exertion. He states he belives the oxygen is through [facility]. He will call back with a number to fax any updated rx to. Original Note: TC to [facility] to Leena pt nurse CHEL at [phone] to verify oxygen rx and services for pt, will await returned call.
[2022-07-24 11:46] LABS: Bedside Glucose 393 mg/dL (74-106)
--- NOTE | 2022-07-24 14:21 | CASEMGMT ---
Social Work SW spoke with pt Aviva and introduced self and role of SW. Pt is primary caregiver for pt who, per , is displaying memory problems and likely has the beginning of Alzheimers. Aviva is also caregiver for her 89 year old mother who lives with her. SW provided support to pt and discussed ways to cope with situation. Aviva has support from her sister, grandchildren and equipment inspector and his . SW provided Aviva with written information on Alzheimer's [employer] and list of support groups. Pt aware SW will remain available should further needs arise. Joaquin HYMAN
[2022-07-24 17:46] LABS: Bedside Glucose 322 mg/dL (74-106)
[2022-07-24 21:36] LABS: Bedside Glucose 409 mg/dL (74-106)
[2022-07-24] MEDS: Atorvastatin Calcium 40 MG Tablet PO (22:51)
[2022-07-24] MEDS: 0.9% Saline Lock 10 ML Syringe IV (22:54)
[2022-07-25] VITALS (15 sets, daily range): BP systolic 135–174; BP diastolic 63–80; PULSE 53–91; RESP 18–20; TEMP 36.3–36.9; O2SAT 93–96
--- NOTE | 2022-07-25 00:08 | CPS ---
Patient does not wish to wear home pap tonight
[2022-07-25] MEDS: Ipratropium/Albuterol Sulfate 3 ML AMPUL.NEB INHALATION ×6 (03:27→22:45)
[2022-07-25] MEDS: 0.9% Saline Lock 10 ML Syringe IV ×4 (05:33→23:45)
[2022-07-25] MEDS: Gabapentin 300 MG Capsule PO ×3 (06:59→23:45)
[2022-07-25] MEDS: Insulin Lispro 100 UNIT/ML INSULN.PEN SC ×4 (06:59→23:42)
[2022-07-25 07:25] LABS: Bedside Glucose 292 mg/dL (74-106)
--- NOTE | 2022-07-25 08:16 | PCM.PROGNOTE ---
- Physical Exam Vitals/I&O's: Vital Signs Temp Pulse Resp BP Pulse Ox O2 Del Method O2 Flow Rate 98 F 73 20 H 159/70 H 93 Nasal Cannula 3 07/25/22 05:40 07/25/22 06:55 07/25/22 06:55 07/25/22 05:40 07/25/22 06:55 07/25/22 06:55 07/25/22 06:55 Oxygen Flow Rate (L/min) 3 Oxygen Delivery Method Nasal Cannula Weight: 101.1 kg Body Mass Index (BMI) 34.4 Intake and Output for Last 24 Hours 07/23/22 07/24/22 07/25/22 23:59 23:59 23:59 Intake Total 4873.88 / 5673.88 2300 / 2300 50 / 50 Output Total 1825 / 2625 2775 / 3875 1100 / 1100 Balance 3048.88 / 3048.88 -475 / -1575 -1050 / -1050 General: Alert, Oriented x3, Cooperative, No apparent distress HEENT: Atraumatic, PERRLA, EOMI, Normocephalic Oral: Moist Mucosa Neck: Supple, No JVD, Negative Carotid Bruits Lungs: No rhonchi, No wheeze, No rales, Diminished Cardiovascular: Regular rate, No murmurs Abdomen: Bowel Sounds Present, Soft, Non Tender Extremities: No edema, Capillary Refill Less than 3 Seconds Skin: No rashes, No breakdown Musculoskeletal: No Tenderness to Palpation of Joints or Extremities Neurological: Cranial nerves II-XII grossly intact Psych/Mental Status: Normal Affect, Appropriate Microbiology Past 72 Hours 07/23/22 08:10 Sputum, Expectorated/Coughed Gram Stain - Final 07/23/22 08:10 Sputum, Expectorated/Coughed Respiratory Culture - Final Mixed normal respiratory marquita. No Streptococcus pneumoniae, beta-hemolytic Streptococcus or Staphylococcus aureus isolated. 07/22/22 15:05 Blood Culture (Wb) - Left Forearm Blood Culture - Preliminary No growth in 48 hours. 07/22/22 15:09 Blood Culture (Wb) - Right Hand Blood Culture - Preliminary No growth in 48 hours. 07/22/22 23:40 Stool Stool Occult Blood (TIMOTEO) - Final Occult Blood Positive 07/22/22 17:28 Interface Orders Respiratory Panel (PCR) - Final 07/22/22 19:05 Urine, Random Streptococcus pneumoniae Antigen (M - Final 07/22/22 19:05 Urine, Clean Catch Legionella Antigen - Final 07/22/22 13:37 Nasal Secretion SARS-CoV-2 & FLU Antigen (Rapid) - Final Laboratory Results 07/24/22 08:00: Vancomycin Trough 6.2 07/24/22 08:00: WBC 16.3 H, RBC 3.11 L, Hgb 10.0 L, Hct 30.7 L, MCV 98.7 H, MCH 32.2 H, MCHC 32.6, RDW Std Deviation 48.5 H, RDW Coeff of Anthony 13.5, Plt Count 369, MPV 8.6, Immature Gran % (Auto) 2.300 H, Neut % (Auto) 91.7 H, Lymph % (Auto) 3.8 L, [place] % (Auto) 2.0, Eos % (Auto) 0.0, Baso % (Auto) 0.2, Absolute Neuts (auto) 14.9 H, Absolute Lymphs (auto) 0.62 L, Nucleated RBC % 0 07/24/22 08:00: Sodium 138, Potassium 3.6, Chloride 103, Carbon Dioxide 25.0, Anion Gap 10, BUN 15, Creatinine 0.98, Estim Creat Clear Calc 65.58, Est GFR (MDRD) Af Amer 98, Est GFR (MDRD) Non-Af 81, BUN/Creatinine Ratio 15.4, Glucose 290 H, Calcium 9.4 07/24/22 11:18: POC Glucose 393 H 07/24/22 17:18: POC Glucose 322 H 07/24/22 21:12: POC Glucose 409 H 07/25/22 06:59: POC Glucose 292 H Current Medications Acetaminophen (Acetaminophen 325 Mg Tablet) 650 mg PO Q4H PRN PRN PRN Reason: Fever, pain -04/22 Albuterol Sulfate (Albuterol 2.5 Mg/3 Ml Vial.Neb.) 2.5 mg INHALATION Q2H PRN PRN PRN Reason: Dyspnea, wheezing Last Admin: 07/23/22 08:05 Dose: 2.5 mg Albuterol/Ipratropium (Ipratropium/Albuterol Sulfate 3 Ml Ampul.Neb) 3 ml INHALATION Q4H.RT RAGHU Last Admin: 01/12/23 06:55 Dose: 3 ml Ascorbic Acid (Ascorbic Acid 500 Mg Tablet) 500 mg PO BID [facility] Last Admin: 07/24/22 22:51 Dose: 500 mg Atorvastatin Calcium (Atorvastatin Calcium 40 Mg Tablet) 40 mg PO QHS [facility] Last Admin: 07/24/22 22:51 Dose: 40 mg Ferrous Gluconate (Ferrous Gluconate 324 Mg Tablet) 324 mg PO LUNCH [facility] Furosemide (Furosemide 20 Mg Tablet) 20 mg PO DAILY [facility] Gabapentin (Gabapentin 300 Mg Capsule) 300 mg PO TID [facility] Last Admin: 07/25/22 06:59 Dose: 300 mg Guaifenesin (Guaifenesin/D-Methorphan Tab.Sr.12h) 2 tablet PO BID [facility] Last Admin: 07/24/22 22:51 Dose: 2 tablet Hydralazine HCl (Hydralazine 20 Mg/Ml Vial) 10 mg IV Q4H PRN PRN PRN Reason: SBP > 160 Last Admin: 07/23/22 22:59 Dose: 10 mg Sodium Chloride () 250 mls @ 15 mls/hr IV .[id number] PRN PRN Reason: Saline Flush Last Infusion: 07/23/22 06:15 Dose: 0 mls/hr Vancomycin IV-PHARMACY TO DOSE (1 each/ Sodium Chloride) 500 mls @ 250 mls/hr IV PRN PRN; Protocol PRN Reason: Rx to Dose Piperacillin Sod/Tazobactam (Sod 3.375 gm/ Sodium Chloride) 50 mls @ 12.5 mls/hr IV Q8 [facility] Last Admin: 07/25/22 05:32 Dose: 12.5 mls/hr Vancomycin HCl 1,250 mg/ (Sodium Chloride) 275 mls @ 167 mls/hr IV Q12H [facility] Last Infusion: 07/24/22 22:52 Dose: Infused Insulin Human Lispro (Insulin Lispro 100 Unit/Ml Insuln.Pen) 0 unit SC ACHS [facility]; Protocol Last Admin: 07/25/22 06:59 Dose: 4 units Losartan Potassium (Losartan Potassium 100 Mg Tablet) 100 mg PO DAILY [facility] Last Admin: 07/24/22 08:42 Dose: 100 mg Magnesium Chloride (Magnesium Chloride 64 Mg Delay Rel.Tablet) 128 mg PO DAILY [facility] Last Admin: 07/24/22 08:41 Dose: 128 mg Melatonin (Melatonin 3 Mg Tablet) 3 mg PO QHS PRN PRN PRN Reason: INSOMNIA Methylprednisolone (Methylprednisolone 40 Mg/Ml Vial) 60 mg IV Q6 [facility] Last Admin: 07/25/22 05:32 Dose: 60 mg Metoprolol Tartrate (Metoprolol Tartrate 25 Mg Tablet) 25 mg PO BID [facility] Last Admin: 07/24/22 22:51 Dose: 25 mg Montelukast Sodium (Montelukast 10 Mg Tablet) 10 mg PO DAILY [facility] Last Admin: 07/24/22 08:41 Dose: 10 mg Nifedipine (Nifedipine 90 Mg Tablet) 90 mg PO DAILY [facility] Last Admin: 07/24/22 08:42 Dose: 90 mg Ondansetron HCl (Ondansetron 4 Mg/2 Ml Vial) 4 mg IV Q8H PRN PRN PRN Reason: NAUSEA/VOMITING Pantoprazole Sodium (Pantoprazole Sodium 40 Mg Tablet) 40 mg PO DAILY [facility] Last Admin: 07/24/22 08:42 Dose: 40 mg Phenol/Menthol (Phenol/Sodium Phenolate 180ml) 5 spray MUCOUS MEM Q2H PRN PRN PRN Reason: sore throat Prochlorperazine Edisylate (Prochlorperazine 10 Mg/2 Ml Vial) 5 mg IV Q4H PRN PRN PRN Reason: Breakthrough nausea/vomiting Senna/Docusate Sodium (Senna/Docusate Sodium 1 Tablet) 2 tablet PO BID [facility] Last Admin: 07/24/22 22:39 Dose: Not Given Sertraline HCl (Sertraline 50 Mg Tablet) 50 mg PO DAILY [facility] Last Admin: 07/24/22 08:41 Dose: 50 mg Sodium Chloride (0.9% Saline Lock 10 Ml Syringe) 10 - 40 ml IV UD PRN PRN Reason: SALINE FLUSH Last Admin: 07/25/22 05:33 Dose: 10 ml Tamsulosin HCl (Tamsulosin Hcl 0.4 Mg Capsule) 0.4 mg PO DAILY@0830 [facility] Last Admin: 07/24/22 08:42 Dose: 0.4 mg Patient Problems: Active and Suspected Problems (Last Reviewed 07/22/22 @ 16:59 by Thu Fitch) Pneumonia (Acute) SIRS (systemic inflammatory response syndrome) (Acute) Acidosis, lactic (Acute) Essential hypertension (Acute) Medical Necessity - Tobacco Use Smoking Status: Former smoker Tobacco Use: Cigarettes Assessment/Plan All Active Problems (Last Reviewed 07/22/22 @ 16:59 by Thu Fitch) Pneumonia (Acute) SIRS (systemic inflammatory response syndrome) (Acute) Acidosis, lactic (Acute) Atrial fibrillation and flutter (Acute) CAD (coronary artery disease) (Acute) Essential hypertension (Acute) Dyspnea (Acute) Anemia (Acute) New onset atrial flutter (Acute) Encounter for screening for COVID-19 (Acute) Hypokalemia (Acute) Acute respiratory failure with hypoxia (Resolved) COPD with acute exacerbation (Resolved) Respiratory failure (Resolved) Stable angina (Resolved)
[2022-07-25 08:23] LABS: Absolute Lymphocyte Count 0.44 X10^3/uL (0.83-4.51); Absolute Neutrophil Count 9.4 X10^3/uL (2.0-7.7); Basophil# 0.01 X10^3/uL; Basophil% 0.1 % (0-1); Eosinophil# 0.01 X10^3/uL; Eosinophils% 0.1 % (0-5); Hematocrit 28.1 % (40-54); Hemoglobin 9.6 g/dL (13.0-16.5); Lymphocyte # 0.44 X10^3/ul (0.83-4.51); Lymphocyte % 4.2 % (19-41); Mean Corp Hgb Conc 34.2 g/dL (32-36); Mean Corpuscular Hgb 33.3 pg (27.0-32.0); Mean Corpuscular Volume 97.6 fL (80-94); Mean Platelet Vol. 8.5 fl (6.2-12.0); Monocyte# 0.25 X10^3/uL; Monocyte% 2.4 % (0-10); NRBC Flagged by Analyzer 0 % (0-5); Neutrophil % 89.8 % (47-70); POSITIVE DIFFERENTIAL YES; Platelet Count 328 K/mm3 (150-450); RBC Distribution Width CV 13.2 % (11.6-14.6); RBC Distribution Width SD 47.4 fl (35.1-43.9); Red Blood Count 2.88 M/mm3 (4.6-6.2); White Blood Count 10.5 K/mm3 (4.4-11.0)
[2022-07-25 08:24] LABS: Differential Indicated SCAN CRITERIA MET
[2022-07-25 08:34] LABS: Anion Gap 8 (5-15); BUN 18 mg/dL (7-18); BUN/Creat Ratio 18.1 RATIO (10-20); Calcium,Total 8.8 mg/dL (8.5-10.1); Chloride 102 mmol/L (98-107); EST Glomerular Filtration Rate 79 mL/min (>60); Est Glom Filt Rate - Afr Amer 95 mL/min (>60); Estimated Creatinine Clearance 64.26 ml/min; Glucose 347 mg/dL (74-106); Potassium 3.3 mmol/L (3.5-5.1); Sodium Level 135 mmol/L (136-145)
[2022-07-25 08:37] LABS: Vancomycin, Trough Level 9.7 ug/mL (5.0-15.0)
[2022-07-25] MEDS: Montelukast 10 MG Tablet PO (08:55)
[2022-07-25] MEDS: Metoprolol Tartrate 25 MG Tablet PO ×2 (08:55→23:45)
[2022-07-25] MEDS: Tamsulosin HCl 0.4 MG Capsule PO (08:55)
[2022-07-25] MEDS: Sertraline 50 MG Tablet PO (08:55)
[2022-07-25] MEDS: Magnesium Chloride 64 MG Delay Rel.Tablet 128 MG PO (08:55)
[2022-07-25] MEDS: Senna/Docusate Sodium 1 Tablet 2 TABLET PO (08:55)
[2022-07-25] MEDS: Pantoprazole Sodium 40 MG Tablet PO (08:56)
[2022-07-25] MEDS: Ascorbic Acid 500 MG Tablet PO ×2 (08:56→23:46)
[2022-07-25] MEDS: NIFEdipine 90 MG Tablet PO (08:56)
[2022-07-25] MEDS: Losartan Potassium 100 MG Tablet PO (08:56)
[2022-07-25] MEDS: guaiFENesin/D-Methorphan TAB.SR.12H 2 TABLET PO ×2 (08:57→23:46)
[2022-07-25] MEDS: Furosemide 20 MG Tablet PO (08:57)
--- NOTE | 2022-07-25 09:03 | PCM.PN.HOSP ---
Subjective Subjective Follow-up for COPD exacerbation and possible pneumonia. Objective Data Objective Data Vital Signs: Vital Signs Temp Pulse Resp BP Pulse Ox O2 Del Method O2 Flow Rate 97.4 F L 91 20 H 174/77 H 93 Nasal Cannula 3 07/25/22 08:43 07/25/22 08:43 07/25/22 08:43 07/25/22 08:43 07/25/22 08:43 07/25/22 08:46 07/25/22 08:46 Oxygen Flow Rate (L/min) 3 Oxygen Delivery Method Nasal Cannula Weight: 222 lb 14.197 oz Body Mass Index (BMI) 34.4 Intake & Output: Intake and Output for Last 24 Hours 07/23/22 07/24/22 07/25/22 23:59 23:59 23:59 Intake Total 4873.88 / 5673.88 2300 / 2300 50 / 50 Output Total 1825 / 2625 2775 / 3875 1100 / 1100 Balance 3048.88 / 3048.88 -475 / -1575 -1050 / -1050 Lab / Micro Data Result Diagrams: 07/25/22 08:10 07/25/22 08:10 Labs: Laboratory Results - last 24 hr 07/24/22 11:18: POC Glucose 393 H 07/24/22 17:18: POC Glucose 322 H 07/24/22 21:12: POC Glucose 409 H 07/25/22 06:59: POC Glucose 292 H 07/25/22 08:10: WBC 10.5, RBC 2.88 L, Hgb 9.6 L, Hct 28.1 L, MCV 97.6 H, MCH 33.3 H, MCHC 34.2, RDW Std Deviation 47.4 H, RDW Coeff of Anthony 13.2, Plt Count 328, MPV 8.5, Immature Gran % (Auto) 3.400 H, Neut % (Auto) 89.8 H, Lymph % (Auto) 4.2 L, Thomas % (Auto) 2.4, Eos % (Auto) 0.1, Baso % (Auto) 0.1, Absolute Neuts (auto) 9.4 H, Absolute Lymphs (auto) 0.44 L, Nucleated RBC % 0, Differential Comment COMMENT 07/25/22 08:10: Sodium 135 L, Potassium 3.3 L, Chloride 102, Carbon Dioxide 25.0, Anion Gap 8, BUN 18, Creatinine 1.00, Estim Creat Clear Calc 64.26, Est GFR (MDRD) Af Amer 95, Est GFR (MDRD) Non-Af 79, BUN/Creatinine Ratio 18.1, Glucose 347 H, Calcium 8.8 07/25/22 08:10: Vancomycin Trough 9.7 Micro: Microbiology 07/23/22 08:10 Sputum, Expectorated/Coughed Gram Stain - Final 07/23/22 08:10 Sputum, Expectorated/Coughed Respiratory Culture - Final Mixed normal respiratory marquita. No Streptococcus pneumoniae, beta-hemolytic Streptococcus or Staphylococcus aureus isolated. 07/22/22 15:05 Blood Culture (Wb) - Left Forearm Blood Culture - Preliminary No growth in 48 hours. 07/22/22 15:09 Blood Culture (Wb) - Right Hand Blood Culture - Preliminary No growth in 48 hours. 07/22/22 23:40 Stool Stool Occult Blood (TIMOTEO) - Final Occult Blood Positive 07/22/22 17:28 Interface Orders Respiratory Panel (PCR) - Final 07/22/22 19:05 Urine, Random Streptococcus pneumoniae Antigen (M - Final 07/22/22 19:05 Urine, Clean Catch Legionella Antigen - Final 07/22/22 13:37 Nasal Secretion SARS-CoV-2 & FLU Antigen (Rapid) - Final Physical Exam Narrative Seen and examined and discussed with patient's near the bedside. Patient shortness of breath is improved. Patient is able to bring up some phlegm. No fever. Discussed with Dr. Tavarez. Physical exam General: Alert, Oriented x3, Cooperative, mild respiratory distress HEENT: Atraumatic, PERRLA, EOMI, Normocephalic Oral: Oral mucosa dry. Could not visualize deep oropharyngeal structures. No Gingival or Mucosal Lesions/ Ulcerations Neck: Supple, No JVD, Negative Carotid Bruits Lungs: Air entry diminished in all lung lim. Mild bilateral expiratory rhonchi. Tachypnea resolved. On 3 L of oxygen. Cardiovascular: Sinus tachycardia, Normal S1, Normal S2, No murmurs Abdomen: Bowel Sounds Present, Soft, Non Tender, mild abdominal distention : No renal angle tenderness. No suprapubic tenderness. Extremities: No edema, Capillary Refill Less than 3 Seconds Skin: No rashes, No breakdown Musculoskeletal: No Tenderness to Palpation of Joints or Extremities, ROM restricted. Neurological: Cranial nerves II-XII grossly intact, DTR 2+/4 and Symmetrical, Neuro grossly intact Psych/Mental Status: Flat affect. Assessment & Plan Assessment/Plan (1) Pneumonia: PLAN: Plan The patient is a 72 y/o M who is admitted with a difficulty in breathing, shortness of breath, Cough, wheezing, hypoxia, dyspnea on exertion, orthopnea since June 2022. Patient follows Dr. Tavarez last seen on Friday and was started on Bactrim.mild improvement. Denies fever chills #1. Chronic hypoxic respiratory failure with COPD/asthma exacerbation due to bilateral pneumonia, left worse than right with lactic acidosis:. As per the night hospitalist, patient worsened last night. Antibiotic was broadened to IV Zosyn and vancomycin after started on Rocephin and Zithromax at time of admission. Respiratory panel, urinary antigens are negative. ABG shows pH 7.4 on 3 L of oxygen suggestive of mild respiratory alkalosis. Improvement in leukocytosis. Patient on bronchodilator, Solu-Medrol, incentive spirometry and Mucinex. Patient was seen by bailer tenders supervisor Dr. Tavarez and discussed with him. Patient has tachypnea mild hypoxia, respiratory distress, leukocytosis and lactic acidosis but no hypotension. Patient lab features including creatinine, total bilirubin, ABG not suggestive of sepsis. Patient also mild abdominal distention but moving small bowel. Abdominal distention may be due to swallowing air. Dulcolax 5 mg ordered. 07/24: Blood culture x2 negative for more than 48 hours. Gram stain shows rare gram-positive cocci, 1+ white blood cells. Continue IV antibiotics vancomycin and Zosyn, bronchodilator Solu-Medrol. Aggressive pulmonary hygiene with PEP and incentive spirometry. Leukocytosis improved. 07/25: Sputum culture shows rare gram-positive cocci 1+ WBC. Discussed with Dr. Tavarez. Shortness of breath is better. No change in cough still wheezing. Plan to continue high-dose Solu-Medrol 60 mg every 6 hourly for 2-3 more days, aggressive pulmonary hygiene. Discussed with pharmacy to continue IV vancomycin and Zosyn. Sepsis ruled out. Blood sugars high due to Solu-Medrol. Lantus 15 subcutaneous twice daily at #2. Lactic acidosis: Suspected secondary to hypoxemia, increased. #3. Acute on Chronic anemia/iron deficiency anemia: Admission hemoglobin 9.4, 11.5 gm on 07/10/2022. 07/24: Stool for occult blood is positive. Hemoglobin is 10. Platelet count normal. #4. Dementia, unclear type with unclear behavioral disturbance history: Reported per significant, not on any current regimen, encourage strongly follow-up with patient's PCP for continued evaluation and treatment. #5. PAF/Flutter: continue patient home apixaban and metoprolol regimen. #6. CAD: Status post PCI, will continue patient aspirin, apixaban, atorvastatin, metoprolol, valsartan regimen. #7. Diabetes mellitus type II: Hold oral home regimen, ADA diet, accu checks w/ ISS. #8. Hypertension: Continue home regimen including valsartan, torsemide, nifedipine, metoprolol with hold parameters as needed, PRN hydralazine. #9. Hyperlipidemia: We will continue patient home statin therapy. #10. BPH: We will continue patient on Flomax regimen. #11. Former tobacco use: Encourage continued tobacco cessation. #12. Former alcohol abuse: Encouraged continued sobriety. #13. Obesity: Weight loss and lifestyle changes encouraged. #14. GERD: We will continue patient home PPI. #15. BPH: continue patient home Flomax regimen. #16. ELISHA: BiPAP nightly. #17. Anxiety and depression:continue patient home sertraline regimen. #18. DVT prophylaxis: SCDs, continue patient home apixaban regimen. #19. CODE status: Patient TORSTEN is his he notes and living will is currently in place. Discussed CODE status at length including difference between FULL code, DNR-CCA and DNR-CC status. Following discussions about the differences in these status with both the patient and his who is present, requested Full Code status. Total time of the visit including total time spent in counseling or coordination of care, (more than 50% of the total time, spent in obtaining medical information from nurses and other ancillary care providers,explaining to the patient about labs, imaging, diagnosis and management of active complex medical conditions), discussion with building performance consultant, review of labs and imaging is 45 minutes minutes. Microbiology Past 72 Hours 07/23/22 08:10 Sputum, Expectorated/Coughed Gram Stain - Final 07/23/22 08:10 Sputum, Expectorated/Coughed Respiratory Culture - Final Mixed normal respiratory marquita. No Streptococcus pneumoniae, beta-hemolytic Streptococcus or Staphylococcus aureus isolated. 07/22/22 15:05 Blood Culture (Wb) - Left Forearm Blood Culture - Preliminary No growth in 48 hours. 07/22/22 15:09 Blood Culture (Wb) - Right Hand Blood Culture - Preliminary No growth in 48 hours. 07/22/22 23:40 Stool Stool Occult Blood (TIMOTEO) - Final Occult Blood Positive 07/22/22 17:28 Interface Orders Respiratory Panel (PCR) - Final 07/22/22 19:05 Urine, Random Streptococcus pneumoniae Antigen (M - Final 07/22/22 19:05 Urine, Clean Catch Legionella Antigen - Final 07/22/22 13:37 Nasal Secretion SARS-CoV-2 & FLU Antigen (Rapid) - Final Laboratory Results 07/24/22 17:18: POC Glucose 322 H 07/24/22 21:12: POC Glucose 409 H 07/25/22 06:59: POC Glucose 292 H 07/25/22 08:10: WBC 10.5, RBC 2.88 L, Hgb 9.6 L, Hct 28.1 L, MCV 97.6 H, MCH 33.3 H, MCHC 34.2, RDW Std Deviation 47.4 H, RDW Coeff of Anthony 13.2, Plt Count 328, MPV 8.5, Immature Gran % (Auto) 3.400 H, Neut % (Auto) 89.8 H, Lymph % (Auto) 4.2 L, Thomas % (Auto) 2.4, Eos % (Auto) 0.1, Baso % (Auto) 0.1, Absolute Neuts (auto) 9.4 H, Absolute Lymphs (auto) 0.44 L, Nucleated RBC % 0, Differential Comment COMMENT 07/25/22 08:10: Sodium 135 L, Potassium 3.3 L, Chloride 102, Carbon Dioxide 25.0, Anion Gap 8, BUN 18, Creatinine 1.00, Estim Creat Clear Calc 64.26, Est GFR (MDRD) Af Amer 95, Est GFR (MDRD) Non-Af 79, BUN/Creatinine Ratio 18.1, Glucose 347 H, Calcium 8.8 07/25/22 08:10: Vancomycin Trough 9.7 07/25/22 11:25: POC Glucose 423 H Charges/Coding Visit Charges Inpatient E&M: 50056 Subs Hosp L3
--- NOTE | 2022-07-25 09:09 | NURSING ---
Vanc off schedule d/t attempting to locate IVAC to run it on.
[2022-07-25] MEDS: Ferrous Gluconate 324 MG Tablet PO (11:27)
[2022-07-25 11:55] LABS: Bedside Glucose 423 mg/dL (74-106)
--- NOTE | 2022-07-25 12:42 | PCM.RX.CS ---
Consult Pharmacy has been consulted to manage selected antiobiotic: Vancomycin Type of Consult: Follow-up Suspected Infection: Pneumonia Prior Doses of Antibiotics Received/Current Regimen: Has been on 1250mg iv q12h. Labs: Sodium 135 mmol/L (136-145) L 07/25/22 08:10 Potassium 3.3 mmol/L (3.5-5.1) L 07/25/22 08:10 Chloride 102 mmol/L (98-107) 07/25/22 08:10 Carbon Dioxide 25.0 mmol/L (21.0-32.0) 07/25/22 08:10 Anion Gap 8 (5-15) 07/25/22 08:10 BUN 18 mg/dL (7-18) 07/25/22 08:10 Creatinine 1.00 mg/dL (0.70-1.30) 07/25/22 08:10 Est GFR (MDRD) Af Amer 95 mL/min (>60) 07/25/22 08:10 Est GFR (MDRD) Non-Af 79 mL/min (>60) 07/25/22 08:10 BUN/Creatinine Ratio 18.1 RATIO (10-20) 07/25/22 08:10 Glucose 347 mg/dL (74-106) H 07/25/22 08:10 Vancomycin Trough 9.7 ug/mL (5.0-15.0) 07/25/22 08:10 Microbiology: Microbiology 07/23/22 08:10 Sputum, Expectorated/Coughed Gram Stain - Final 07/23/22 08:10 Sputum, Expectorated/Coughed Respiratory Culture - Final Mixed normal respiratory marquita. No Streptococcus pneumoniae, beta-hemolytic Streptococcus or Staphylococcus aureus isolated. 07/22/22 15:05 Blood Culture (Wb) - Left Forearm Blood Culture - Preliminary No growth in 48 hours. 07/22/22 15:09 Blood Culture (Wb) - Right Hand Blood Culture - Preliminary No growth in 48 hours. 07/22/22 23:40 Stool Stool Occult Blood (TIMOTEO) - Final Occult Blood Positive 07/22/22 17:28 Interface Orders Respiratory Panel (PCR) - Final 07/22/22 19:05 Urine, Random Streptococcus pneumoniae Antigen (M - Final 07/22/22 19:05 Urine, Clean Catch Legionella Antigen - Final 07/22/22 13:37 Nasal Secretion SARS-CoV-2 & FLU Antigen (Rapid) - Final Weight used for dosin kg Estimated Creatinine Clearance: 78 ml/min Goal Trough: 15-20 mcg/mL Pharmacy Plan for Drug Dosing: Trough today was 9.7 with goal of 15-20mcg/ml. Will increase dose to 1500mg iv q12h and get another trough level before 4th dose. Pharmacy Service will continue to monitor and adjust dosing as required. Follow-Up Labs: Trough Vancomycin - 1.14.23 @0730 before 0800 dose
[2022-07-25] MEDS: Insulin Glargine-YFGN 100 UNIT/ML Pen 15 UNIT SC ×2 (14:30→23:42)
--- NOTE | 2022-07-25 15:48 | CASEMGMT ---
RN CHEL in to pt room, pt states [facility] and she would like to proceed with HHC in the community upon dc instead of [facility] services. Patient and were provided a list of HHC providers including quality and resource use data and consistent with the patient?s preferred geographic region, medical needs, and insurance network were provided from the [employer]. Pt and to discuss and TORRIE MILLIGAN to obtain choices tomorrow.
[2022-07-25 16:50] LABS: Bedside Glucose 367 mg/dL (74-106)
[2022-07-25] MEDS: Atorvastatin Calcium 40 MG Tablet PO (23:45)
[2022-07-26] VITALS (16 sets, daily range): BP systolic 152–188; BP diastolic 63–85; PULSE 53–92; RESP 12–20; TEMP 36.4–37.1; O2SAT 87–99
[2022-07-26 00:30] LABS: Bedside Glucose 324 mg/dL (74-106)
[2022-07-26] MEDS: 0.9% Saline Lock 10 ML Syringe IV ×3 (01:40→11:56)
[2022-07-26] MEDS: Ipratropium/Albuterol Sulfate 3 ML AMPUL.NEB INHALATION ×6 (02:08→23:01)
[2022-07-26 05:58] LABS: Hematocrit 28.3 % (40-54); Hemoglobin 9.2 g/dL (13.0-16.5); Mean Corp Hgb Conc 32.5 g/dL (32-36); Mean Corpuscular Hgb 31.9 pg (27.0-32.0); Mean Corpuscular Volume 98.3 fL (80-94); Mean Platelet Vol. 8.6 fl (6.2-12.0); POSITIVE COUNT YES; POSITIVE DIFFERENTIAL YES; POSITIVE MORPHOLOGY YES; Platelet Count 368 K/mm3 (150-450); RBC Distribution Width CV 13.3 % (11.6-14.6); RBC Distribution Width SD 47.5 fl (35.1-43.9); Red Blood Count 2.88 M/mm3 (4.6-6.2); White Blood Count 11.3 K/mm3 (4.4-11.0)
[2022-07-26 06:14] LABS: Differential Indicated MANUAL DIFF
[2022-07-26 06:15] LABS: Macrocytosis 1+; Platelet Estimate ADEQUATE (ADEQ); Red Cell Morphology NORM C+C NORMAL (NORM C&C)
[2022-07-26 06:16] LABS: Absolute Lymphocyte Count 0.23 X10^3/uL (0.83-4.51); Absolute Neutrophil Count 10.8 X10^3/uL (2.0-7.7)
[2022-07-26 06:17] LABS: Lymphocyte 2 % (19-41); Monocyte 2 % (0-10); Myelocyte 1 % (0-0); Neutrophil-Band 3 % (0-5); Neutrophil-Segmented 92 % (47-70); Total Cells Counted 100 (MANUAL DIFF)
[2022-07-26 06:22] LABS: Anion Gap 7 (5-15); BUN 17 mg/dL (7-18); BUN/Creat Ratio 17.2 RATIO (10-20); Calcium,Total 8.6 mg/dL (8.5-10.1); Chloride 103 mmol/L (98-107); Creatinine, Serum 0.99 mg/dL (0.70-1.30); EST Glomerular Filtration Rate 80 mL/min (>60); Est Glom Filt Rate - Afr Amer 96 mL/min (>60); Estimated Creatinine Clearance 64.91 ml/min; Glucose 302 mg/dL (74-106); Potassium 3.5 mmol/L (3.5-5.1); Sodium Level 138 mmol/L (136-145)
[2022-07-26] MEDS: Gabapentin 300 MG Capsule PO ×3 (06:43→21:45)
[2022-07-26] MEDS: Insulin Lispro 100 UNIT/ML INSULN.PEN SC ×4 (06:46→21:48)
[2022-07-26 07:10] LABS: Bedside Glucose 276 mg/dL (74-106)
[2022-07-26] MEDS: Montelukast 10 MG Tablet PO (08:32)
[2022-07-26] MEDS: Metoprolol Tartrate 25 MG Tablet PO ×2 (08:33→21:45)
[2022-07-26] MEDS: guaiFENesin/D-Methorphan TAB.SR.12H 2 TABLET PO ×2 (08:33→21:44)
[2022-07-26] MEDS: Sertraline 50 MG Tablet PO (08:33)
[2022-07-26] MEDS: Tamsulosin HCl 0.4 MG Capsule PO (08:33)
[2022-07-26] MEDS: Pantoprazole Sodium 40 MG Tablet PO (08:33)
[2022-07-26] MEDS: Ascorbic Acid 500 MG Tablet PO ×2 (08:34→21:54)
[2022-07-26] MEDS: NIFEdipine 90 MG Tablet PO (08:34)
[2022-07-26] MEDS: Losartan Potassium 100 MG Tablet PO (08:34)
[2022-07-26] MEDS: Furosemide 20 MG Tablet PO (08:35)
[2022-07-26] MEDS: Insulin Glargine-YFGN 100 UNIT/ML Pen 15 UNIT SC ×2 (08:38→21:48)
--- NOTE | 2022-07-26 10:41 | PCM.PN.HOSP ---
Subjective Subjective Follow-up for COPD exacerbation and bilateral pneumonia Objective Data Objective Data Vital Signs: Vital Signs Temp Pulse Resp BP Pulse Ox O2 Del Method O2 Flow Rate 97.6 F L 70 20 H 152/63 H 94 Nasal Cannula 3 07/26/22 08:29 07/26/22 08:33 07/26/22 08:29 07/26/22 08:29 07/26/22 08:29 07/26/22 08:29 07/26/22 08:29 Oxygen Flow Rate (L/min) [ 5 AMBULATING with Oxygen #3] Oxygen Flow Rate (L/min) [ 4 AMBULATING with Oxygen #2] Oxygen Flow Rate (L/min) [ 3 AMBULATING with Oxygen #1] Oxygen Flow Rate (L/min) [At 3 REST with Oxygen] Oxygen Flow Rate (L/min) 3 Oxygen Delivery Method Nasal Cannula Weight: 223 lb 1.725 oz Body Mass Index (BMI) 34.4 Intake & Output: Intake and Output for Last 24 Hours 07/24/22 07/25/22 07/26/22 23:59 23:59 23:59 Intake Total 2300 / 2300 2323 / 2323 267.25 / 267.25 Output Total 2775 / 3875 3675 / 4775 1100 / 1100 Balance -475 / -1575 -1352 / -2452 -832.75 / -832.75 Lab / Micro Data Result Diagrams: 07/26/22 05:38 07/26/22 05:38 Labs: Laboratory Results - last 24 hr 07/25/22 11:25: POC Glucose 423 H 07/25/22 16:20: POC Glucose 367 H 07/25/22 23:41: POC Glucose 324 H 07/26/22 05:38: WBC 11.3 H, RBC 2.88 L, Hgb 9.2 L, Hct 28.3 L, MCV 98.3 H, MCH 31.9, MCHC 32.5, RDW Std Deviation 47.5 H, RDW Coeff of Anthony 13.3, Plt Count 368, MPV 8.6, Neut % (Auto) Not Reportable, Absolute Neuts (auto) 10.8 H, Absolute Lymphs (auto) 0.23 L, Total Counted 100, Neutrophils % (Manual) 92 H, Band Neutrophils % 3, Lymphocytes % (Manual) 2 L, Monocytes % (Manual) 2, Myelocytes % 1 H, Diff Path Review November, Platelet Estimate ADEQUATE, RBC Morphology NORM C+C, Macrocytosis 1+ 07/26/22 05:38: Sodium 138, Potassium 3.5, Chloride 103, Carbon Dioxide 28.0, Anion Gap 7, BUN 17, Creatinine 0.99, Estim Creat Clear Calc 64.91, Est GFR (MDRD) Af Amer 96, Est GFR (MDRD) Non-Af 80, BUN/Creatinine Ratio 17.2, Glucose 302 H, Calcium 8.6 07/26/22 06:44: POC Glucose 276 H Micro: Microbiology 07/23/22 08:10 Sputum, Expectorated/Coughed Gram Stain - Final 07/23/22 08:10 Sputum, Expectorated/Coughed Respiratory Culture - Final Mixed normal respiratory marquita. No Streptococcus pneumoniae, beta-hemolytic Streptococcus or Staphylococcus aureus isolated. 07/22/22 15:05 Blood Culture (Wb) - Left Forearm Blood Culture - Preliminary No growth in 48 hours. 07/22/22 15:09 Blood Culture (Wb) - Right Hand Blood Culture - Preliminary No growth in 48 hours. 07/22/22 23:40 Stool Stool Occult Blood (TIMOTEO) - Final Occult Blood Positive 07/22/22 17:28 Interface Orders Respiratory Panel (PCR) - Final 07/22/22 19:05 Urine, Random Streptococcus pneumoniae Antigen (M - Final 07/22/22 19:05 Urine, Clean Catch Legionella Antigen - Final 07/22/22 13:37 Nasal Secretion SARS-CoV-2 & FLU Antigen (Rapid) - Final Physical Exam Narrative Seen and examined and discussed with patient's near the bedside. Patient shortness of breath is improved. Patient is able to bring up some phlegm. No fever. Discussed with Dr. Tavarez. Physical exam General: Alert, Oriented x3, Cooperative, mild respiratory distress HEENT: Atraumatic, PERRLA, EOMI, Normocephalic Oral: Oral mucosa moist. No Gingival or Mucosal Lesions/ Ulcerations Neck: Supple, No JVD, Negative Carotid Bruits Lungs: Air entry improved in all lung lim. Mild bilateral expiratory rhonchi. Tachypnea resolved. On 3 L of oxygen. Cardiovascular: Sinus rhythm, Normal S1, Normal S2, No murmurs Abdomen: Bowel Sounds Present, Soft, Non Tender, mild abdominal distention : No renal angle tenderness. No suprapubic tenderness. Extremities: No edema, Capillary Refill Less than 3 Seconds Skin: No rashes, No breakdown Musculoskeletal: No Tenderness to Palpation of Joints or Extremities, ROM restricted. Neurological: Cranial nerves II-XII grossly intact, DTR 2+/4 and Symmetrical, Neuro grossly intact Psych/Mental Status: Flat affect. Assessment & Plan Assessment/Plan (1) Pneumonia: PLAN: Plan The patient is a 72 y/o M who is admitted with a difficulty in breathing, shortness of breath, Cough, wheezing, hypoxia, dyspnea on exertion, orthopnea since June 2022. Patient follows Dr. Tavarez last seen on Friday and was started on Bactrim.mild improvement. Denies fever chills #1. Chronic hypoxic respiratory failure with COPD/asthma exacerbation due to bilateral pneumonia, left worse than right with lactic acidosis:. As per the night hospitalist, patient worsened last night. Antibiotic was broadened to IV Zosyn and vancomycin after started on Rocephin and Zithromax at time of admission. Respiratory panel, urinary antigens are negative. ABG shows pH 7.4 on 3 L of oxygen suggestive of mild respiratory alkalosis. Improvement in leukocytosis. Patient on bronchodilator, Solu-Medrol, incentive spirometry and Mucinex. Patient was seen by rotary bar operator Dr. Tavarez and discussed with him. Patient has tachypnea mild hypoxia, respiratory distress, leukocytosis and lactic acidosis but no hypotension. Patient lab features including creatinine, total bilirubin, ABG not suggestive of sepsis. Patient also mild abdominal distention but moving small bowel. Abdominal distention may be due to swallowing air. Dulcolax 5 mg ordered. 07/24: Blood culture x2 negative for more than 48 hours. Gram stain shows rare gram-positive cocci, 1+ white blood cells. Continue IV antibiotics vancomycin and Zosyn, bronchodilator Solu-Medrol. Aggressive pulmonary hygiene with PEP and incentive spirometry. Leukocytosis improved. 07/25: Sputum culture shows rare gram-positive cocci 1+ WBC. Discussed with Dr. Tavarez. Shortness of breath is better. No change in cough still wheezing. Plan to continue high-dose Solu-Medrol 60 mg every 6 hourly for 2-3 more days, aggressive pulmonary hygiene. Discussed with pharmacy to continue IV vancomycin and Zosyn. Sepsis ruled out. Blood sugars high due to Solu-Medrol. Lantus 15 subcutaneous twice daily at 07/26: Patient is on 3 L of oxygen. Continue home treatment. Patient is feeling better. Air entry has improved. Anticipating discharge tomorrow on prolonged taper of prednisone. Discussed with the patient and regarding plan of care. #2. Lactic acidosis: Suspected secondary to hypoxemia, increased. #3. Acute on Chronic anemia/iron deficiency anemia: Admission hemoglobin 9.4, 11.5 gm on 07/10/2022. 07/24: Stool for occult blood is positive. Hemoglobin is 10. Platelet count normal. 07/26: Hemoglobin 9.2. Platelet count at 68,000. Advised follow-up GI as an outpatient. #4. Dementia, unclear type with unclear behavioral disturbance history: Reported per significant, not on any current regimen, encourage strongly follow-up with patient's PCP for continued evaluation and treatment. #5. PAF/Flutter: continue patient home apixaban and metoprolol regimen. #6. CAD: Status post PCI, will continue patient aspirin, apixaban, atorvastatin, metoprolol, valsartan regimen. #7. Diabetes mellitus type II: Hold oral home regimen, ADA diet, accu checks w/ ISS. #8. Hypertension: Continue home regimen including valsartan, torsemide, nifedipine, metoprolol with hold parameters as needed, PRN hydralazine. #9. Hyperlipidemia: We will continue patient home statin therapy. #10. BPH: We will continue patient on Flomax regimen. #11. Former tobacco use: Encourage continued tobacco cessation. #12. Former alcohol abuse: Encouraged continued sobriety. #13. Obesity: Weight loss and lifestyle changes encouraged. #14. GERD: We will continue patient home PPI. #15. BPH: continue patient home Flomax regimen. #16. ELISHA: BiPAP nightly. #17. Anxiety and depression:continue patient home sertraline regimen. #18. DVT prophylaxis: SCDs, continue patient home apixaban regimen. #19. CODE status: Patient TORSTEN is his he notes and living will is currently in place. Discussed CODE status at length including difference between FULL code, DNR-CCA and DNR-CC status. Following discussions about the differences in these status with both the patient and his who is present, requested Full Code status. Total time of the visit including total time spent in counseling or coordination of care, (more than 50% of the total time, spent in obtaining medical information from nurses and other ancillary care providers,explaining to the patient about labs, imaging, diagnosis and management of active complex medical conditions), discussion with strategic consultant, review of labs and imaging is 45 minutes minutes. Microbiology Past 72 Hours 07/23/22 08:10 Sputum, Expectorated/Coughed Gram Stain - Final 07/23/22 08:10 Sputum, Expectorated/Coughed Respiratory Culture - Final Mixed normal respiratory marquita. No Streptococcus pneumoniae, beta-hemolytic Streptococcus or Staphylococcus aureus isolated. 07/22/22 15:05 Blood Culture (Wb) - Left Forearm Blood Culture - Preliminary No growth in 48 hours. 07/22/22 15:09 Blood Culture (Wb) - Right Hand Blood Culture - Preliminary No growth in 48 hours. 07/22/22 23:40 Stool Stool Occult Blood (TIMOTEO) - Final Occult Blood Positive 07/22/22 17:28 Interface Orders Respiratory Panel (PCR) - Final 07/22/22 19:05 Urine, Random Streptococcus pneumoniae Antigen (M - Final 07/22/22 19:05 Urine, Clean Catch Legionella Antigen - Final 07/22/22 13:37 Nasal Secretion SARS-CoV-2 & FLU Antigen (Rapid) - Final Laboratory Results 07/24/22 17:18: POC Glucose 322 H 07/24/22 21:12: POC Glucose 409 H 07/25/22 06:59: POC Glucose 292 H 07/25/22 08:10: WBC 10.5, RBC 2.88 L, Hgb 9.6 L, Hct 28.1 L, MCV 97.6 H, MCH 33.3 H, MCHC 34.2, RDW Std Deviation 47.4 H, RDW Coeff of Anthony 13.2, Plt Count 328, MPV 8.5, Immature Gran % (Auto) 3.400 H, Neut % (Auto) 89.8 H, Lymph % (Auto) 4.2 L, [place] % (Auto) 2.4, Eos % (Auto) 0.1, Baso % (Auto) 0.1, Absolute Neuts (auto) 9.4 H, Absolute Lymphs (auto) 0.44 L, Nucleated RBC % 0, Differential Comment COMMENT 07/25/22 08:10: Sodium 135 L, Potassium 3.3 L, Chloride 102, Carbon Dioxide 25.0, Anion Gap 8, BUN 18, Creatinine 1.00, Estim Creat Clear Calc 64.26, Est GFR (MDRD) Af Amer 95, Est GFR (MDRD) Non-Af 79, BUN/Creatinine Ratio 18.1, Glucose 347 H, Calcium 8.8 07/25/22 08:10: Vancomycin Trough 9.7 07/25/22 11:25: POC Glucose 423 H Charges/Coding Visit Charges Inpatient E&M: 34153 Subs Hosp L2
--- NOTE | 2022-07-26 10:51 | CASEMGMT ---
RN CM in to pt room, pt just finished working with therapy. Pt present. Therapist not recommending HHC but potentially outpt. Pt and pt state they would like the [facility] to continue then. They deny need for any [facility] in the home. Aware that pt will have oxygen testing to [facility]. Pt states that they have a pox and she will monitor his oxygen levels. Green sheet on chart for oxygen. Plan: Home with [facility] to continue.
[2022-07-26] MEDS: Ferrous Gluconate 324 MG Tablet PO (11:54)
[2022-07-26 12:26] LABS: Bedside Glucose 278 mg/dL (74-106)
[2022-07-26 16:26] LABS: Bedside Glucose 367 mg/dL (74-106)
[2022-07-26] MEDS: Atorvastatin Calcium 40 MG Tablet PO (21:44)
[2022-07-26 23:31] LABS: Bedside Glucose 396 mg/dL (74-106)
--- NOTE | 2022-07-26 23:51 | NURSING ---
Per Pt request zosyn not ran through other line. Ran after Vanco was completed.
[2022-07-27 02:45] VITALS: BP 177/60; PULSE 91; RESP 18; TEMP 36.7; O2SAT 95
[2022-07-27] MEDS: Gabapentin 300 MG Capsule PO (05:21)
[2022-07-27 05:24] VITALS: O2SAT 89; O2SAT 94; O2SAT 95
[2022-07-27] MEDS: Insulin Lispro 100 UNIT/ML INSULN.PEN SC (06:25)
[2022-07-27 07:01] LABS: Bedside Glucose 285 mg/dL (74-106)
[2022-07-27] MEDS: Ipratropium/Albuterol Sulfate 3 ML AMPUL.NEB INHALATION (07:36)
[2022-07-27 07:37] VITALS: PULSE 67; RESP 18; O2SAT 94
--- NOTE | 2022-07-27 07:45 | DCINST_ITS ---
Discharge Instructions Diet Discharge Diet: 2000 mg Sodium Diet Activity Discharge Activity: Return to Normal Activity Weight Bearing Status: Weight bearing as tolerated Dressing / Incision Call your doctor if you observe: Fever of 101 or Higher, Coldness, Increased Pain, Numbness or Tingling, Change in Color, Inability to urinate, Inability to have a bowel movement, Shortness of breath, Dizziness, Fainting spells, Swelling in the ankles, Chest pain, Prolonged hiccupping, Increased palpitations (irregular heartbeat) and Calf discomfort Follow Up Care When: IN 2 WEEKS Test Results: Test results from this visit will be discussed in further detail at your follow- up appointment, if applicable. Discharge Plan Admission Admit Date/Time: 07/22/22 14:58 Primary Reason for Your Visit: COPD exacerbation with pneumonia Attending Provider: Enrique Hawthorne Primary Care Provider: Umesh Orr Consulting Providers: Gianfranco Tavarez V ; Jade Veliz Discharge Orders/Prescriptions Prescriptions: New ferrous gluconate 324 mg (37.5 mg iron) Tablet 324 mg PO LUNCH Qty: 0 0RF sennosides-docusate sodium [Stool Softener-Stimulant Laxat] 8.6-50 mg Tablet 2 tab PO BID Qty: 0 0RF Mucinex DM 30-600 mg Tablet Extended Release 12 Hr 2 tab PO BID 7 Days Qty: 28 0RF prednisone 20 mg tablet See Taper PO DAILY Qty: 42 0RF Taper: Prednisone Taper 60 mg WITH BREAKFAST for 4 Days and 0 Hour 40 mg WITH BREAKFAST for 4 Days and 0 Hour 30 mg WITH BREAKFAST for 4 Days and 0 Hour 20 mg WITH BREAKFAST for 4 Days and 0 Hour 10 mg WITH BREAKFAST for 4 Days and 0 Hour Rx Instructions: 60 mg for 4 days, 40 mg daily for 4 days, 30 mg for 4 days, 20 mg for 4 days and 10 mg 4 days and then resume baseline prednisone prednisone 5 mg tablet 5 mg PO QODAY Qty: 30 0RF Rx Instructions: start from 07/17/21 after completion of prednisone taper amoxicillin-pot clavulanate [Augmentin] 500-125 mg tablet 1 tab PO BID Qty: 10 0RF Continued Daliresp 500 mcg tablet 500 mcg PO QPM Rx Instructions: Takes in the PM omega-3 fatty acids [Fish Oil Concentrate] 1,000 mg capsule 2,000 mg PO BID tamsulosin 0.4 mg capsule 0.4 mg PO DAILY cholecalciferol (vitamin D3) 2,000 unit tablet 2,000 unit tablet 2,000 unit PO QPM torsemide 10 mg tablet 5 mg PO DAILY montelukast 10 mg tablet 10 mg PO DAILY albuterol sulfate 2.5 mg /3 mL (0.083 %) solution for nebulization 2.5 mg INHALATION 4X/DAY PRN (Reason: Sob &/Or Wheezing) magnesium oxide 400 mg magnesium tablet 400 mg PO DAILY Asmanex HFA 200 mcg/actuation HFA aerosol inhaler 2 puff inhalation BID Stiolto Respimat 2.5-2.5 mcg/actuation mist 2 puff inhalation Q24H acetaminophen 650 mg tablet extended release 1,300 mg PO Q12H gabapentin 300 mg capsule 300 mg PO TID sertraline 50 mg tablet 50 mg PO DAILY atorvastatin 40 MG tablet 40 mg PO QHS Label Comments: CHOLESTEROL metformin 1,000 MG tablet 1,000 mg PO BIDCM Label Comments: DIABETES valsartan 320 MG tablet 320 mg PO DAILY Label Comments: BLOOD PRESSURE albuterol sulfate 1 PUFF inhaler 2 puff INHALATION Q4H PRN PRN (Reason: Shortness Of Breath) Label Comments: BREATHING clotrimazole 1 % Cream 1 applic TOPICAL BID PRN (Reason: feet) pantoprazole [Protonix] 40 mg tablet,delayed release (DR/EC) 40 mg PO DAILY Qty: 30 2RF ascorbic acid (vitamin C) 500 mg tablet 500 mg PO BID Qty: 60 0RF nifedipine 90 mg Tablet Extended Release 90 mg PO DAILY tramadol 50 mg Tablet 50 mg PO BID PRN (Reason: Pain) mirtazapine 15 mg tablet 15 mg PO DAILY apixaban 5 mg tablet 5 mg PO BID Qty: 180 4RF amlodipine 5 mg tablet 5 mg PO DAILY Qty: 30 11RF metoprolol tartrate 25 mg tablet 25 mg PO BID Qty: 180 3RF Discontinued ferrous gluconate 324 mg (37.5 mg iron) tablet 324 mg PO BID prednisone 5 mg tablet 5 mg PO QODAY Hold Instructions: Hold while taking prednisone taper. Label Comments: TAKE 1 TABLET BY MOUTH EVERY OTHER DAY Referrals / Follow Up: Umesh Orr MD [Primary Care Provider] - Within 2 Weeks Gianfranco Tavarez MD [Med Staff - Active Staff] - Within 1 Week Disposition Disposition (needs filled in before D/C Order can be placed): Home, Self Care
[2022-07-27 07:49] LABS: Anion Gap 8 (5-15); BUN 16 mg/dL (7-18); BUN/Creat Ratio 16.8 RATIO (10-20); Calcium,Total 8.5 mg/dL (8.5-10.1); Chloride 101 mmol/L (98-107); Creatinine, Serum 0.95 mg/dL (0.70-1.30); EST Glomerular Filtration Rate 83 mL/min (>60); Est Glom Filt Rate - Afr Amer 101 mL/min (>60); Estimated Creatinine Clearance 67.65 ml/min; Glucose 274 mg/dL (74-106); Potassium 3.5 mmol/L (3.5-5.1); Sodium Level 136 mmol/L (136-145)
[2022-07-27 07:52] LABS: Vancomycin, Trough Level 15.5 ug/mL (5.0-15.0)
[2022-07-27] MEDS: Tamsulosin HCl 0.4 MG Capsule PO (08:02)
[2022-07-27 08:48] VITALS: BP 158/66; PULSE 88; RESP 16; TEMP 36.4; O2SAT 93
--- NOTE | 2022-07-27 08:59 | PCM.DC.SUM ---
Providers Date of Admission: 07/22/22 Date of Discharge: 07/27/22 Primary Care Physician: Dr. Umesh Orr MD Consultations 07/22/22 19:03 Consult: Technology Engineer / Pulmonary Medicine Routine Consulting Provider: Gianfranco Tavarez V Reason for Consult: Hypoxia, COPD/asthma exac, PNA EMERGENT Consult: No MD Notified: Yes Date Notified: 07/22/22 Time Notified: 19:03 Method of Notification: Text Reason For Visit: COPD EXAC., ACUTE HYPOXIC ON CHRONIC, BL PNA Diagnosis Discharge Diagnosis (1) Pneumonia: Status: Acute Code(s): J18.9 - Pneumonia, unspecified organism Plan The patient is a 72 y/o M who is admitted with a difficulty in breathing, shortness of breath, Cough, wheezing, hypoxia, dyspnea on exertion, orthopnea since June 2022. Patient follows Dr. Tavarez last seen on Friday and was started on Bactrim.mild improvement. Denies fever chills #1. Chronic hypoxic respiratory failure with COPD/asthma exacerbation due to bilateral pneumonia, left worse than right with lactic acidosis:. As per the night hospitalist, patient worsened last night. Antibiotic was broadened to IV Zosyn and vancomycin after started on Rocephin and Zithromax at time of admission. Respiratory panel, urinary antigens are negative. ABG shows pH 7.4 on 3 L of oxygen suggestive of mild respiratory alkalosis. Improvement in leukocytosis. Patient on bronchodilator, Solu-Medrol, incentive spirometry and Mucinex. Patient was seen by lamination machine operator Dr. Tavarez and discussed with him. Patient has tachypnea mild hypoxia, respiratory distress, leukocytosis and lactic acidosis but no hypotension. Patient lab features including creatinine, total bilirubin, ABG not suggestive of sepsis. Patient also mild abdominal distention but moving small bowel. Abdominal distention may be due to swallowing air. Dulcolax 5 mg ordered. 07/24: Blood culture x2 negative for more than 48 hours. Gram stain shows rare gram-positive cocci, 1+ white blood cells. Continue IV antibiotics vancomycin and Zosyn, bronchodilator Solu-Medrol. Aggressive pulmonary hygiene with PEP and incentive spirometry. Leukocytosis improved. 07/25: Sputum culture shows rare gram-positive cocci 1+ WBC. Discussed with Dr. Tavarez. Shortness of breath is better. No change in cough still wheezing. Plan to continue high-dose Solu-Medrol 60 mg every 6 hourly for 2-3 more days, aggressive pulmonary hygiene. Discussed with pharmacy to continue IV vancomycin and Zosyn. Sepsis ruled out. Blood sugars high due to Solu-Medrol. Lantus 15 subcutaneous twice daily at 07/26: Patient is on 3 L of oxygen. Continue home treatment. Patient is feeling better. Air entry has improved. Anticipating discharge tomorrow on prolonged taper of prednisone. Discussed with the patient and regarding plan of care. 07/27: Patient on baseline oxygen requirement. Shortness of breath is much improved. Mild chronic bilateral rhonchi. Patient is discharged on long taper of prednisone starting from 60 mg daily as advised by Dr. Tavarez. Also discharged on Augmentin and Mucinex DM. Patient resume prednisone 5 mg every other day after completion of prednisone taper as maintenance therapy. Follow-up Dr. Tavarez in 1 week. MRSA nasal screen negative. #2. Lactic acidosis: Suspected secondary to hypoxemia, increased. #3. Acute on Chronic anemia/iron deficiency anemia: Admission hemoglobin 9.4, 11.5 gm on 07/10/2022. 07/24: Stool for occult blood is positive. Hemoglobin is 10. Platelet count normal. 07/26: Hemoglobin 9.2. Platelet count at 68,000. Advised follow-up GI as an outpatient. #4. Dementia, unclear type with unclear behavioral disturbance history: Reported per significant, not on any current regimen, encourage strongly follow-up with patient's PCP for continued evaluation and treatment. #5. PAF/Flutter: continue patient home apixaban and metoprolol regimen. #6. CAD: Status post PCI, will continue patient aspirin, apixaban, atorvastatin, metoprolol, valsartan regimen. #7. Diabetes mellitus type II: Hold oral home regimen, ADA diet, accu checks w/ ISS. 07/27: Blood sugar high during Solu-Medrol high-dose. Advised to follow with PCP. #8. Hypertension: Continue home regimen including valsartan, torsemide, nifedipine, metoprolol with hold parameters as needed, PRN hydralazine. #9. Hyperlipidemia: We will continue patient home statin therapy. #10. BPH: We will continue patient on Flomax regimen. #11. Former tobacco use: Encourage continued tobacco cessation. #12. Former alcohol abuse: Encouraged continued sobriety. #13. Obesity: Weight loss and lifestyle changes encouraged. #14. GERD: We will continue patient home PPI. #15. BPH: continue patient home Flomax regimen. #16. ELISHA: BiPAP nightly. #17. Anxiety and depression:continue patient home sertraline regimen. #18. DVT prophylaxis: SCDs, continue patient home apixaban regimen. #19. CODE status: Patient TORSTEN is his he notes and living will is currently in place. Discussed CODE status at length including difference between FULL code, DNR-CCA and DNR-CC status. Following discussions about the differences in these status with both the patient and his who is present, requested Full Code status. Discharge medication reconciliation done. Discharge follow-up instructions completed. Discharge process discussed with the patient and all questions were answered to patient's satisfaction. Total time spent, exact 35 minutes on discharge meds reconciliation, examination, coordination of care with nurses and ancillary staff, review of imaging and blood test and discussion with the patient on follow-up instructions. Microbiology Past 72 Hours 07/23/22 08:10 Sputum, Expectorated/Coughed Gram Stain - Final 07/23/22 08:10 Sputum, Expectorated/Coughed Respiratory Culture - Final Mixed normal respiratory marquita. No Streptococcus pneumoniae, beta-hemolytic Streptococcus or Staphylococcus aureus isolated. 07/22/22 15:05 Blood Culture (Wb) - Left Forearm Blood Culture - Preliminary No growth in 48 hours. 07/22/22 15:09 Blood Culture (Wb) - Right Hand Blood Culture - Preliminary No growth in 48 hours. Medications at Discharge Home Medications albuterol sulfate 90 mcg/actuation aerosol inhaler 2 puff inhalation Q4H PRN PRN Shortness Of Breath 06/24/15 atorvastatin 40 mg tablet 40 mg PO QHS Cholesterol 06/24/15 metformin 1,000 mg tablet 1,000 mg PO BIDCM Diabetes 06/24/15 valsartan 320 mg tablet 320 mg PO DAILY BP 06/24/15 cholecalciferol (vitamin D3) 50 mcg (2,000 unit) tablet 2,000 unit PO QPM vitamin 04/14/18 omega-3 fatty acids 1,000 mg capsule (Fish Oil Concentrate) 2,000 mg PO BID Heart health 04/14/18 roflumilast 500 mcg tablet (Daliresp) 500 mcg PO QPM COPD 04/14/18 tamsulosin 0.4 mg capsule 0.4 mg PO DAILY Prostate 04/14/18 albuterol sulfate 2.5 mg/3 mL (0.083 %) solution for nebulization 2.5 mg inhalation 4X/DAY PRN Sob &/Or Wheezing 10/15/18 montelukast 10 mg tablet 10 mg PO DAILY asthma 10/15/18 torsemide 10 mg tablet 5 mg PO DAILY diuretic 10/15/18 magnesium oxide 400 mg PO DAILY 10/25/20 mometasone 200 mcg/actuation HFA aerosol inhaler (Asmanex HFA) 2 puff inhalation BID 05/08/21 tiotropium 2.5 mcg-olodaterol 2.5 mcg/actuation mist for inhalation (Stiolto Respimat) 2 puff inhalation Q24H copd 05/08/21 sertraline 50 mg tablet 50 mg PO DAILY 08/01/21 ascorbic acid (vitamin C) 500 mg tablet 500 mg PO BID #60 tabs 11/27/21 clotrimazole 1 % topical cream 1 applic topical BID PRN feet 11/27/21 pantoprazole 40 mg tablet,delayed release (Protonix) 40 mg PO DAILY #30 tabs 11/27/21 amlodipine 5 mg tablet 5 mg PO DAILY #30 tabs 02/05/22 nifedipine 90 mg tablet,extended release 90 mg PO DAILY 03/15/22 tramadol 50 mg tablet 50 mg PO BID PRN Pain 03/15/22 acetaminophen 650 mg tablet,extended release 1,300 mg PO Q12H 05/08/22 gabapentin 300 mg capsule 300 mg PO TID 05/08/22 metoprolol tartrate 25 mg tablet 25 mg PO BID #180 tabs 05/09/22 mirtazapine 15 mg tablet 15 mg PO DAILY SLEEP 07/22/22 amoxicillin 500 mg-potassium clavulanate 125 mg tablet (Augmentin) 1 tab PO BID #10 tabs 07/27/22 apixaban 5 mg tablet 5 mg PO BID #180 tabs 07/27/22 dextromethorphan-guaifenesin 30 mg-600 mg tablet extended [id number] hr (Mucinex DM) 2 tab PO BID 7 days #28 tabs 07/27/22 ferrous gluconate 324 mg (37.5 mg iron) tablet 324 mg PO LUNCH #0 tabs 07/27/22 prednisone 20 mg tablet See Taper PO DAILY #42 tabs 07/27/22 prednisone 5 mg tablet 5 mg PO QODAY #30 tabs 07/27/22 sennosides 8.6 mg-docusate sodium 50 mg tablet (Stool Softener-Stimulant Laxative) 2 tab PO BID #0 tabs 07/27/22 Physical Exam Narrative Seen and examined and discussed with patient's near the bedside. Patient shortness of breath is improved. Patient is able to bring up some phlegm. Advised to continue incentive spirometry and Pep for 1 more week. Patient wants to go home. No fever. Physical exam General: Alert, Oriented x3, Cooperative, no respiratory distress. Comfortably sitting on the bed. HEENT: Atraumatic, PERRLA, EOMI, Normocephalic Oral: Oral mucosa moist. No Gingival or Mucosal Lesions/ Ulcerations Neck: Supple, No JVD, Negative Carotid Bruits Lungs: Air entry improved in all lung lim. Mild bilateral expiratory rhonchi. Tachypnea resolved. On 3-4 L of oxygen. Cardiovascular: Sinus rhythm, Normal S1, Normal S2, No murmurs Abdomen: Bowel Sounds Present, Soft, Non Tender, mild abdominal distention : No renal angle tenderness. No suprapubic tenderness. Extremities: No edema, Capillary Refill Less than 3 Seconds Skin: No rashes, No breakdown Musculoskeletal: No Tenderness to Palpation of Joints or Extremities, ROM restricted. Neurological: Cranial nerves II-XII grossly intact, DTR 2+/4 and Symmetrical, Neuro grossly intact Psych/Mental Status: Flat affect. Weight / BMI Weight Weight: 228 lb 2.855 oz Body Mass Index (BMI) 34.4 ABG / Lab / Microbiology Data Result Diagrams: 07/26/22 05:38 07/27/22 07:27 Laboratory: Laboratory Results - last 24 hr 07/26/22 11:52: POC Glucose 278 H 07/26/22 16:03: POC Glucose 367 H 07/26/22 21:47: POC Glucose 396 H 07/27/22 06:23: POC Glucose 285 H 07/27/22 07:27: Sodium 136, Potassium 3.5, Chloride 101, Carbon Dioxide 27.0, Anion Gap 8, BUN 16, Creatinine 0.95, Estim Creat Clear Calc 67.65, Est GFR (MDRD) Af Amer 101, Est GFR (MDRD) Non-Af 83, BUN/Creatinine Ratio 16.8, Glucose 274 H, Calcium 8.5 07/27/22 07:27: Vancomycin Trough 15.5 H Microbiology: Microbiology 07/23/22 08:10 Sputum, Expectorated/Coughed Gram Stain - Final 07/23/22 08:10 Sputum, Expectorated/Coughed Respiratory Culture - Final Mixed normal respiratory marquita. No Streptococcus pneumoniae, beta-hemolytic Streptococcus or Staphylococcus aureus isolated. 07/22/22 15:05 Blood Culture (Wb) - Left Forearm Blood Culture - Preliminary No growth in 48 hours. 07/22/22 15:09 Blood Culture (Wb) - Right Hand Blood Culture - Preliminary No growth in 48 hours. 07/22/22 23:40 Stool Stool Occult Blood (TIMOTEO) - Final Occult Blood Positive 07/22/22 17:28 Interface Orders Respiratory Panel (PCR) - Final 07/22/22 19:05 Urine, Random Streptococcus pneumoniae Antigen (M - Final 07/22/22 19:05 Urine, Clean Catch Legionella Antigen - Final 07/22/22 13:37 Nasal Secretion SARS-CoV-2 & FLU Antigen (Rapid) - Final D/C Instructions Discharge Diet: 2000 mg Sodium Diet Weight Bearing Status: Weight bearing as tolerated Call your doctor if you observe: Fever of 101 or Higher, Coldness, Increased Pain, Numbness or Tingling, Change in Color, Inability to urinate, Inability to have a bowel movement, Shortness of breath, Dizziness, Fainting spells, Swelling in the ankles, Chest pain, Prolonged hiccupping, Increased palpitations (irregular heartbeat) and Calf discomfort When: IN 2 WEEKS Meaningful Use Info Meaningful Use Diagnoses (Choose all that apply): None applicable Discharge Plan Admission Admit Date/Time: 07/22/22 14:58 Primary Reason for Your Visit: COPD exacerbation with pneumonia Attending Provider: Enrique Hawthorne Primary Care Provider: Umesh Orr Consulting Providers: Gianfranco Tavarez V ; Jade Veliz Discharge Orders/Prescriptions Prescriptions: New ferrous gluconate 324 mg (37.5 mg iron) Tablet 324 mg PO LUNCH Qty: 0 0RF sennosides-docusate sodium [Stool Softener-Stimulant Laxat] 8.6-50 mg Tablet 2 tab PO BID Qty: 0 0RF Mucinex DM 30-600 mg Tablet Extended Release 12 Hr 2 tab PO BID 7 Days Qty: 28 0RF prednisone 20 mg tablet See Taper PO DAILY Qty: 42 0RF Taper: Prednisone Taper 60 mg WITH BREAKFAST for 4 Days and 0 Hour 40 mg WITH BREAKFAST for 4 Days and 0 Hour 30 mg WITH BREAKFAST for 4 Days and 0 Hour 20 mg WITH BREAKFAST for 4 Days and 0 Hour 10 mg WITH BREAKFAST for 4 Days and 0 Hour Rx Instructions: 60 mg for 4 days, 40 mg daily for 4 days, 30 mg for 4 days, 20 mg for 4 days and 10 mg 4 days and then resume baseline prednisone prednisone 5 mg tablet 5 mg PO QODAY Qty: 30 0RF Rx Instructions: start from 07/17/21 after completion of prednisone taper amoxicillin-pot clavulanate [Augmentin] 500-125 mg tablet 1 tab PO BID Qty: 10 0RF Continued Daliresp 500 mcg tablet 500 mcg PO QPM Rx Instructions: Takes in the PM omega-3 fatty acids [Fish Oil Concentrate] 1,000 mg capsule 2,000 mg PO BID tamsulosin 0.4 mg capsule 0.4 mg PO DAILY cholecalciferol (vitamin D3) 2,000 unit tablet 2,000 unit tablet 2,000 unit PO QPM torsemide 10 mg tablet 5 mg PO DAILY montelukast 10 mg tablet 10 mg PO DAILY albuterol sulfate 2.5 mg /3 mL (0.083 %) solution for nebulization 2.5 mg INHALATION 4X/DAY PRN (Reason: Sob &/Or Wheezing) magnesium oxide 400 mg magnesium tablet 400 mg PO DAILY Asmanex HFA 200 mcg/actuation HFA aerosol inhaler 2 puff inhalation BID Stiolto Respimat 2.5-2.5 mcg/actuation mist 2 puff inhalation Q24H acetaminophen 650 mg tablet extended release 1,300 mg PO Q12H gabapentin 300 mg capsule 300 mg PO TID sertraline 50 mg tablet 50 mg PO DAILY atorvastatin 40 MG tablet 40 mg PO QHS Label Comments: CHOLESTEROL metformin 1,000 MG tablet 1,000 mg PO BIDCM Label Comments: DIABETES valsartan 320 MG tablet 320 mg PO DAILY Label Comments: BLOOD PRESSURE albuterol sulfate 1 PUFF inhaler 2 puff INHALATION Q4H PRN PRN (Reason: Shortness Of Breath) Label Comments: BREATHING clotrimazole 1 % Cream 1 applic TOPICAL BID PRN (Reason: feet) pantoprazole [Protonix] 40 mg tablet,delayed release (DR/EC) 40 mg PO DAILY Qty: 30 2RF ascorbic acid (vitamin C) 500 mg tablet 500 mg PO BID Qty: 60 0RF nifedipine 90 mg Tablet Extended Release 90 mg PO DAILY tramadol 50 mg Tablet 50 mg PO BID PRN (Reason: Pain) mirtazapine 15 mg tablet 15 mg PO DAILY apixaban 5 mg tablet 5 mg PO BID Qty: 180 4RF amlodipine 5 mg tablet 5 mg PO DAILY Qty: 30 11RF metoprolol tartrate 25 mg tablet 25 mg PO BID Qty: 180 3RF Discontinued ferrous gluconate 324 mg (37.5 mg iron) tablet 324 mg PO BID prednisone 5 mg tablet 5 mg PO QODAY Hold Instructions: Hold while taking prednisone taper. Label Comments: TAKE 1 TABLET BY MOUTH EVERY OTHER DAY Referrals / Follow Up: Umesh Orr MD [Primary Care Provider] - Within 2 Weeks Gianfranco Tavarez MD [Med Staff - Active Staff] - Within 1 Week Disposition Disposition (needs filled in before D/C Order can be placed): Home, Self Care Charges/Coding Visit Charges Inpatient E&M: 02224 Disch Hosp >30min
[2022-07-27] MEDS: Insulin Glargine-YFGN 100 UNIT/ML Pen 15 UNIT SC (09:44)
[2022-07-27 09:45] VITALS: PULSE 88
[2022-07-27] MEDS: Metoprolol Tartrate 25 MG Tablet PO (09:45)
[2022-07-27] MEDS: Losartan Potassium 100 MG Tablet PO (09:45)
[2022-07-27] MEDS: Magnesium Chloride 64 MG Delay Rel.Tablet 128 MG PO (09:45)
[2022-07-27] MEDS: Furosemide 20 MG Tablet PO (09:45)
[2022-07-27] MEDS: guaiFENesin/D-Methorphan TAB.SR.12H 2 TABLET PO (09:46)
[2022-07-27] MEDS: Ascorbic Acid 500 MG Tablet PO (09:47)
[2022-07-27] MEDS: Sertraline 50 MG Tablet PO (09:47)
[2022-07-27] MEDS: Montelukast 10 MG Tablet PO (09:47)
[2022-07-27] MEDS: NIFEdipine 90 MG Tablet PO (09:47)
[2022-07-27] MEDS: Pantoprazole Sodium 40 MG Tablet PO (09:47)
--- NOTE | 2022-07-27 09:51 | PCM.RX.CS ---
Consult Pharmacy has been consulted to manage selected antiobiotic: Vancomycin Type of Consult: Follow-up Suspected Infection: Pneumonia Labs: Sodium 136 mmol/L (136-145) 07/27/22 07:27 Potassium 3.5 mmol/L (3.5-5.1) 07/27/22 07:27 Chloride 101 mmol/L (98-107) 07/27/22 07:27 Carbon Dioxide 27.0 mmol/L (21.0-32.0) 07/27/22 07:27 Anion Gap 8 (5-15) 07/27/22 07:27 BUN 16 mg/dL (7-18) 07/27/22 07:27 Creatinine 0.95 mg/dL (0.70-1.30) 07/27/22 07:27 Est GFR (MDRD) Af Amer 101 mL/min (>60) 07/27/22 07:27 Est GFR (MDRD) Non-Af 83 mL/min (>60) 07/27/22 07:27 BUN/Creatinine Ratio 16.8 RATIO (10-20) 07/27/22 07:27 Glucose 274 mg/dL (74-106) H 07/27/22 07:27 Vancomycin Trough 15.5 ug/mL (5.0-15.0) H 07/27/22 07:27 Microbiology: Microbiology 07/23/22 08:10 Sputum, Expectorated/Coughed Gram Stain - Final 07/23/22 08:10 Sputum, Expectorated/Coughed Respiratory Culture - Final Mixed normal respiratory marquita. No Streptococcus pneumoniae, beta-hemolytic Streptococcus or Staphylococcus aureus isolated. 07/22/22 15:05 Blood Culture (Wb) - Left Forearm Blood Culture - Preliminary No growth in 48 hours. 07/22/22 15:09 Blood Culture (Wb) - Right Hand Blood Culture - Preliminary No growth in 48 hours. 07/22/22 23:40 Stool Stool Occult Blood (TIMOTEO) - Final Occult Blood Positive 07/22/22 17:28 Interface Orders Respiratory Panel (PCR) - Final 07/22/22 19:05 Urine, Random Streptococcus pneumoniae Antigen (M - Final 07/22/22 19:05 Urine, Clean Catch Legionella Antigen - Final 07/22/22 13:37 Nasal Secretion SARS-CoV-2 & FLU Antigen (Rapid) - Final Goal Trough: 15-20 mcg/mL Pharmacy Plan for Drug Dosing: VANCOMYCIN LEVEL RECEIVED Current Vancomycin Dose: 1500mg q12h (at 08,20) Number of Doses Received: x3 of current dose Vancomycin Level: 15.5 Hours Since Last Dose: 11 Renal Function: SrCr 0.95 Renal Function Trend: SrCr stable Lab/Micro: Vancomycin Plan/Comments: resulted trough of 15.5 is within the ordered goal trough range of 15-20. recommend continuing current dose of 1500mg q12h and checking a trough in 4 more doses Pending Level: 07/28/22 at 1930 Pharmacy Service will continue to monitor and adjust dosing as required. Follow-Up Labs: Trough Vancomycin - 07/28/22 at 1930
[2022-07-29 13:31] LABS: Pathologist Review Reviewed
== END 2022-07-27 12:15 | disposition home or self-care (01) | DRG 190 ==
LOC: ED 14:40 → MS2 16:21
PROVIDERS: Admitting Provider Family Medicine; Emergency Provider Emergency Medicine; PCP Family Medicine; Visit Provider Internal Medicine
DX: J44.1 Chronic obstructive pulmonary disease with (acute) exacerbation (principal); J18.9 Pneumonia, unspecified organism; E87.20 Acidosis, unspecified; I48.92 Unspecified atrial flutter; J45.901 Unspecified asthma with (acute) exacerbation; J96.11 Chronic respiratory failure with hypoxia; F03.90 Unspecified dementia, unspecified severity, without behavioral disturbance, psychotic disturbance, mood disturbance, and anxiety; J44.0 Chronic obstructive pulmonary disease with (acute) lower respiratory infection; I48.0 Paroxysmal atrial fibrillation; E11.65 Type 2 diabetes mellitus with hyperglycemia; I10 Essential (primary) hypertension; K21.9 Gastro-esophageal reflux disease without esophagitis; I25.10 Atherosclerotic heart disease of native coronary artery without angina pectoris; E78.5 Hyperlipidemia, unspecified; G47.33 Obstructive sleep apnea (adult) (pediatric); D50.9 Iron deficiency anemia, unspecified; E87.6 Hypokalemia; Z79.51 Long term (current) use of inhaled steroids; Z82.3 Family history of stroke; Z86.16 Personal history of COVID-19; Z87.891 Personal history of nicotine dependence; Z95.5 Presence of coronary angioplasty implant and graft; Z79.82 Long term (current) use of aspirin; Z79.01 Long term (current) use of anticoagulants; Z79.84 Long term (current) use of oral hypoglycemic drugs; F32.A Depression, unspecified; Z79.52 Long term (current) use of systemic steroids; N40.0 Benign prostatic hyperplasia without lower urinary tract symptoms
CPT/HCPCS: 36415; 36600; 71046; 80048; 80053; 80202; 82274; 82607; 82746; 82803; 82962; 83605; 84145; 85025; 85610; 85730; 87040; 87070; 87205; 87428; 87449; 87633; 87635; 87641; 93005; 94640; 94667; 94668; 94762; 97162; 97166; 97530; 99252; 99285; J7030; J7040; J7050; A4216; G0463; J0696; U0003; U0005

== ENCOUNTER → 2022-08-02 | Outpatient (CLI) | payer MEDICARE, SELFPAY ==
[2018-05-01 14:21] VITALS: BMI 36.8
== END | disposition home or self-care (01) ==
LOC: LAB 10:43
PROVIDERS: PCP Family Medicine; Visit Provider Internal Medicine Pulmonary Disease
DX: R05.9 Cough, unspecified (principal)
CPT/HCPCS: 87070; 87205

== ENCOUNTER → 2022-10-09 | Outpatient (CLI) | payer MEDICARE, SELFPAY ==
[2018-05-01 14:21] VITALS: BMI 36.8
[2022-10-09 13:19] LABS: Absolute Lymphocyte Count 1.41 X10^3/uL (0.83-4.51); Absolute Neutrophil Count 3.8 X10^3/uL (2.0-7.7); Basophil# 0.04 X10^3/uL; Basophil% 0.7 % (0-1); Eosinophil# 0.19 X10^3/uL; Eosinophils% 3.3 % (0-5); Hematocrit 31.9 % (40-54); Lymphocyte # 1.41 X10^3/ul (0.83-4.51); Lymphocyte % 24.4 % (19-41); Mean Corp Hgb Conc 34.5 g/dL (32-36); Mean Corpuscular Hgb 33.6 pg (27.0-32.0); Mean Corpuscular Volume 97.6 fL (80-94); Mean Platelet Vol. 9.4 fl (6.2-12.0); Monocyte# 0.34 X10^3/uL; Monocyte% 5.9 % (0-10); NRBC Flagged by Analyzer 0 % (0-5); Neutrophil # 3.79 X10^3/uL (2.7-7.7); Neutrophil % 65.4 % (47-70); Platelet Count 200 K/mm3 (150-450); RBC Distribution Width CV 12.8 % (11.6-14.6); RBC Distribution Width SD 45.6 fl (35.1-43.9); RET-HE 35.5 pg (30-35); Red Blood Count 3.27 M/mm3 (4.6-6.2); Reticulocyte Count 2.93 % (0.5-1.5); White Blood Count 5.8 K/mm3 (4.4-11.0)
[2022-10-09 14:07] LABS: ALB/GLOB Ratio 1.4 RATIO (0.9-2.4); AST(SGOT) 13 U/L (15-37); Alanine Aminotransfer ALT/SGPT 25 U/L (16-61); Albumin, Serum 4.1 g/dL (3.2-5.0); Alkaline Phosphatase 80 U/L (45-117); Anion Gap 9 (5-15); BUN 15 mg/dL (7-18); BUN/Creat Ratio 14.7 RATIO (10-20); Calcium,Total 9.7 mg/dL (8.5-10.1); Chloride 104 mmol/L (98-107); Creatinine, Serum 1.02 mg/dL (0.70-1.30); EST Glomerular Filtration Rate 77 mL/min (>60); Est Glom Filt Rate - Afr Amer 93 mL/min (>60); Ferritin 35 ng/mL (26-388); Globulin 2.9 g/dL (2.2-4.2); Glucose 144 mg/dL (74-106); Iron 67 ug/dL (65-175); Iron Binding Capacity,Total 326 ug/dL (250-450); Potassium 3.6 mmol/L (3.5-5.1); Sodium Level 139 mmol/L (136-145)
== END | disposition home or self-care (01) ==
LOC: MFPLAB 12:27
PROVIDERS: PCP Family Medicine; Referring Provider Family Medicine; Visit Provider Family Medicine
DX: D64.9 Anemia, unspecified (principal)
CPT/HCPCS: 36415; 80053; 82728; 83540; 83550; 85025; 85045

== ENCOUNTER → 2022-11-11 | Outpatient (CLI) | payer MEDICARE, SELFPAY ==
[2018-05-01 14:21] VITALS: BMI 36.8
[2022-11-11 12:19] LABS: Hematocrit 32.7 % (40-54); Hemoglobin 11.2 g/dL (13.0-16.5); Mean Corp Hgb Conc 34.3 g/dL (32-36); Mean Corpuscular Volume 96.5 fL (80-94); Platelet Count 228 K/mm3 (150-450); RBC Distribution Width CV 12.9 % (11.6-14.6); RBC Distribution Width SD 45.2 fl (35.1-43.9); Red Blood Count 3.39 M/mm3 (4.6-6.2); White Blood Count 6.1 K/mm3 (4.4-11.0)
[2022-11-11 13:16] LABS: AST(SGOT) 14 U/L (15-37); Alanine Aminotransfer ALT/SGPT 20 U/L (16-61); Alkaline Phosphatase 73 U/L (45-117); Bilirubin, Direct 0.18 mg/dL (0.00-0.30); Cholesterol 120 mg/dL (200); Globulin 3.2 g/dL (2.2-4.2); High Density Lipoprotein 35 mg/dL; Protein, Total 7.2 g/dL (6.4-8.2); Triglycerides 356 mg/dL; Very Low Density Lipoprotein 71 mg/dL (5-40)
== END | disposition home or self-care (01) ==
LOC: MFPLAB 11:02
PROVIDERS: Internal Medicine Cardiovascular Disease; PCP Family Medicine; Visit Provider Family Medicine
DX: E78.00 Pure hypercholesterolemia, unspecified (principal); I10 Essential (primary) hypertension; I25.10 Atherosclerotic heart disease of native coronary artery without angina pectoris; E87.6 Hypokalemia; D64.9 Anemia, unspecified
CPT/HCPCS: 36415; 80061; 80076; 85027

== ENCOUNTER → 2022-11-12 | Outpatient (CLI) | payer MEDICARE, SELFPAY ==
[2018-05-01 14:21] VITALS: BMI 36.8
--- NOTE | 2022-11-12 07:14 | CT_ITS ---
EXAM: CT CHEST WITHOUT INTRAVENOUS CONTRAST CLINICAL INDICATION: ABNORMAL FINDINGS OF LUNG TECHNIQUE: Helically acquired images were obtained of the chest without intravenous contrast. This CT exam was performed using one or more of the following dose reduction techniques: automated exposure control, adjustment of the mA and/or kV according to patient size, and/or use of iterative reconstruction technique. COMPARISON: CT PET scan 06/26/2022, CT Chest dated 05/18/2022 FINDINGS: LUNGS AND PLEURAL SPACES: Diffuse emphysematous changes of the lungs. No evidence of residual or recurrent lung mass or nodule. HEART: Prominent coronary artery calcification. Heart size is normal. No pericardial effusion. MEDIASTINUM: Normal. No mediastinal or hilar adenopathy. Esophagus is unremarkable. No hiatal hernia. BONES/JOINTS: No suspicious lytic or blastic abnormality. VASCULATURE: See above. TUBES, LINES AND DEVICES: Interval placement of watchman device. Residual pleural thickening/minimal pericardial effusion. CT/Chest without Contrast IMPRESSION: 1. Stable pulmonary emphysema. 2. No evidence of residual or recurrent lung neoplasm. Electronically Signed: Tl Clarke MD at 8:55 EDT ,
== END | disposition home or self-care (01) ==
LOC: CT 07:12
PROVIDERS: PCP Family Medicine; Referring Provider Internal Medicine Pulmonary Disease; Visit Provider Internal Medicine Pulmonary Disease
DX: R91.8 Other nonspecific abnormal finding of lung field (principal)
CPT/HCPCS: 71250

== ENCOUNTER → 2022-11-26 | Outpatient (CLI) | payer MEDICARE, SELFPAY ==
[2018-05-01 14:21] VITALS: BMI 36.8
[2022-11-26 12:25] LABS: Hematocrit 36.5 % (40-54); Hemoglobin 12.1 g/dL (13.0-16.5); Mean Corp Hgb Conc 33.2 g/dL (32-36); Mean Corpuscular Hgb 32.2 pg (27.0-32.0); Mean Corpuscular Volume 97.1 fL (80-94); Mean Platelet Vol. 9.8 fl (6.2-12.0); Platelet Count 240 K/mm3 (150-450); RBC Distribution Width CV 12.5 % (11.6-14.6); RBC Distribution Width SD 44.4 fl (35.1-43.9); Red Blood Count 3.76 M/mm3 (4.6-6.2); White Blood Count 6.3 K/mm3 (4.4-11.0)
[2022-11-26 12:53] LABS: Anion Gap 12 (5-15); BUN 14 mg/dL (7-18); BUN/Creat Ratio 13.7 RATIO (10-20); Calcium,Total 9.7 mg/dL (8.5-10.1); Chloride 101 mmol/L (98-107); Creatinine, Serum 1.02 mg/dL (0.70-1.30); EST Glomerular Filtration Rate 77 mL/min (>60); Est Glom Filt Rate - Afr Amer 93 mL/min (>60); Glucose 150 mg/dL (74-106); Potassium 3.6 mmol/L (3.5-5.1); Sodium Level 140 mmol/L (136-145)
== END | disposition home or self-care (01) ==
LOC: MTLAB 10:20
PROVIDERS: PCP Family Medicine
DX: I11.0 Hypertensive heart disease with heart failure (principal); I50.9 Heart failure, unspecified; I48.91 Unspecified atrial fibrillation; Z95.818 Presence of other cardiac implants and grafts; K92.2 Gastrointestinal hemorrhage, unspecified
CPT/HCPCS: 36415; 80048; 85027

== ENCOUNTER 2023-05-19 14:41 | Emergency (ER) | payer MEDICARE, SELFPAY ==
[2018-05-01 14:21] VITALS: BMI 36.8
[2023-05-19 14:42] VITALS: BP 128/48; PULSE 52; RESP 20; TEMP 36.2; O2SAT 95; BMI 34.7
--- NOTE | 2023-05-19 14:45 | EKG12_ITS ---
Test Reason : CP Blood Pressure : / mmHG Vent. Rate : 057 BPM Atrial Rate : 057 BPM P-R Int : 140 ms QRS Dur : 088 ms QT Int : 460 ms P-R-T Axes : 064 056 060 degrees QTc Int : 447 ms Sinus bradycardia Otherwise normal ECG Confirmed by ANASTACIO SIMMS, SHANDRA ([id number]), book editor RENÉ SANDOVAL ([id number]) on 05/26/2023 10:06:13 AM Referred By: Confirmed By:SLIM CHAVES MD
[2023-05-19 15:15] LABS: Absolute Lymphocyte Count 1.58 X10^3/uL (0.83-4.51); Absolute Neutrophil Count 4.2 X10^3/uL (2.0-7.7); Basophil# 0.06 X10^3/uL; Basophil% 0.9 % (0-1); Eosinophil# 0.18 X10^3/uL; Eosinophils% 2.8 % (0-5); Hematocrit 34.6 % (40-54); Hemoglobin 11.8 g/dL (13.0-16.5); Lymphocyte # 1.58 X10^3/ul (0.83-4.51); Lymphocyte % 24.8 % (19-41); Mean Corp Hgb Conc 34.1 g/dL (32-36); Mean Corpuscular Hgb 32.7 pg (27.0-32.0); Mean Corpuscular Volume 95.8 fL (80-94); Mean Platelet Vol. 8.8 fl (6.2-12.0); Monocyte# 0.34 X10^3/uL; Monocyte% 5.3 % (0-10); NRBC Flagged by Analyzer 0 % (0-5); Neutrophil % 65.9 % (47-70); Platelet Count 220 K/mm3 (150-450); RBC Distribution Width CV 12.8 % (11.6-14.6); RBC Distribution Width SD 45.1 fl (35.1-43.9); Red Blood Count 3.61 M/mm3 (4.6-6.2); White Blood Count 6.4 K/mm3 (4.4-11.0)
[2023-05-19 15:21] VITALS: PULSE 50; RESP 16; O2SAT 94
[2023-05-19 15:29] LABS: Anion Gap 9 (5-15); BUN 13 mg/dL (7-18); BUN/Creat Ratio 9.2 RATIO (10-20); Calcium,Total 9.2 mg/dL (8.5-10.1); Chloride 104 mmol/L (98-107); Creatinine, Serum 1.41 mg/dL (0.70-1.30); EST Glomerular Filtration Rate 53 mL/min (>60); Est Glom Filt Rate - Afr Amer 64 mL/min (>60); Estimated Creatinine Clearance 44.93 ml/min; Glucose 195 mg/dL (74-106); Potassium 3.6 mmol/L (3.5-5.1); Sodium Level 137 mmol/L (136-145); Troponin-I HS (w/2H Reflex) 27 pg/mL (3.0-78.0)
--- NOTE | 2023-05-19 15:33 | EX.ED.DYSGE1 ---
HPI <SIGRID Connolly - Last Filed: 05/19/23 20:35> History of Present Illness Chief Complaint: Shortness of Breath Narrative Narrative: Patient presenting today with his due to concerns for shortness of breath. reports that he has been wheezing more short of breath over the past few days. She gave him a dose of prednisone on Friday which she thinks seemed to help a little bit. He does have oxygen at home to use as needed and primarily uses it at night. Patient does have a chronic cough and does not think he has been coughing more than usual, he has had a runny nose over the past few days. Patient reports that he does get intermittent midsternal chest discomfort at times but does not have any chest pain now. Patient has a PMH of COPD, atrial fibrillation with Watchman device, anemia, Alzheimer's disease, and CAD. Patient denies any history of blood clots, recent surgery/procedures/immobilization/travel. PFSH <SIGRID Connolly - Last Filed: 05/19/23 20:35> [facility] Medical History Acute and chronic respiratory failure with hypoxia Acute and chronic respiratory failure with hypoxia Acute on chronic anemia Alcoholism Anemia Atherosclerotic heart disease of [place] coronary artery without angina pectoris Atrial fibrillation Atrial fibrillation and flutter BiPAP (biphasic positive airway pressure) dependence CAD (coronary artery disease) COPD (chronic obstructive pulmonary disease) COPD exacerbation COVID Diabetes Dyspnea Encounter for screening for COVID-19 Essential hypertension Former smoker GERD (gastroesophageal reflux disease) GI bleed History of GI bleed History of short term memory loss Hydrocele, bilateral Hyperlipemia Hypokalemia Lung nodule, multiple On home oxygen therapy ELISHA (obstructive sleep apnea) Paroxysmal atrial fibrillation Pneumonia Presence of stent in coronary artery (~05/01/18) Pulmonary HTN Sleep apnea Suspected COVID-19 virus infection Type 2 diabetes mellitus Home Medications albuterol sulfate 90 mcg/actuation aerosol inhaler 2 puff inhalation Q4H PRN PRN Shortness Of Breath 06/24/15 [History Last Taken 07/22/22] atorvastatin 40 mg tablet 40 mg PO QHS Cholesterol 06/24/15 [History Last Taken 07/21/22] metformin 1,000 mg tablet 1,000 mg PO BIDCM Diabetes 06/24/15 [History Last Taken 07/22/22] valsartan 320 mg tablet 320 mg PO DAILY BP 06/24/15 [History Last Taken 07/22/22] cholecalciferol (vitamin D3) 50 mcg (2,000 unit) tablet 2,000 unit PO QPM vitamin 04/14/18 [History Last Taken 07/22/22] omega-3 fatty acids 1,000 mg capsule (Fish Oil Concentrate) 2,000 mg PO BID Heart health 04/14/18 [History Last Taken 07/22/22] roflumilast 500 mcg tablet (Daliresp) 500 mcg PO QPM COPD 04/14/18 [History Last Taken 07/21/22] tamsulosin 0.4 mg capsule 0.4 mg PO DAILY Prostate 04/14/18 [History Last Taken 07/21/22] albuterol sulfate 2.5 mg/3 mL (0.083 %) solution for nebulization 2.5 mg inhalation 4X/DAY PRN Sob &/Or Wheezing 10/15/18 [History Last Taken 07/22/22] torsemide 10 mg tablet 5 mg PO DAILY diuretic 10/15/18 [History Last Taken 07/22/22] magnesium oxide 400 mg PO DAILY 10/25/20 [History Last Taken 07/21/22] sertraline 50 mg tablet 50 mg PO DAILY 08/01/21 [History Last Taken 07/22/22] ascorbic acid (vitamin C) 500 mg tablet 500 mg PO BID #60 tabs 11/27/21 [Rx Last Taken 07/22/22] clotrimazole 1 % topical cream 1 applic topical BID PRN feet 11/27/21 [History Last Taken Unknown] pantoprazole 40 mg tablet,delayed release (Protonix) 40 mg PO DAILY #30 tabs 11/27/21 [Rx Last Taken 07/22/22] nifedipine 90 mg tablet,extended release 90 mg PO DAILY 03/15/22 [History Last Taken 07/22/22] tramadol 50 mg tablet 50 mg PO BID PRN Pain 03/15/22 [History Last Taken 07/22/22] acetaminophen 650 mg tablet,extended release 1,300 mg PO Q12H 05/08/22 [History Last Taken 07/21/22] gabapentin 300 mg capsule 300 mg PO TID 05/08/22 [History Last Taken 07/22/22] mirtazapine 15 mg tablet 15 mg PO DAILY SLEEP 07/22/22 [History Last Taken 07/21/22] apixaban 5 mg tablet 5 mg PO BID #180 tabs 07/27/22 [Rx Last Taken 07/22/22] dextromethorphan-guaifenesin 30 mg-600 mg tablet extended [id number] hr (Mucinex DM) 2 tab PO BID 7 days #28 tabs 07/27/22 [Rx Last Taken Unknown] ferrous gluconate 324 mg (37.5 mg iron) tablet 324 mg PO LUNCH #0 tabs 07/27/22 [Rx Last Taken Unknown] prednisone 5 mg tablet 5 mg PO QODAY #30 tabs 07/27/22 [Rx Last Taken Unknown] amlodipine 5 mg tablet 5 mg PO DAILY #90 tabs 11/11/22 [Rx Last Taken Unknown] azithromycin 250 mg tablet (Zithromax) 250 mg PO DAILY 11/27/22 [History Last Taken Unknown] donepezil 5 mg tablet 5 mg PO DAILY 11/27/22 [History Last Taken Unknown] fluticasone fur. 100 mcg-umeclid 62.5 mcg-vilant 25 mcg inhalat.powder (Trelegy Ellipta) 1 inh inhalation DAILY 11/27/22 [History Last Taken Unknown] memantine 5 mg tablet 5 mg PO QPM 11/27/22 [History Last Taken Unknown] prednisone 20 mg tablet 40 mg (2 x 20 mg) PO DAILY 5 days #10 tabs 05/19/23 [Rx Last Taken Unknown] Allergy/AdvReac Type Severity Reaction Status Date / Time doxycycline Allergy Severe Rash Verified 05/19/23 14:42 empagliflozin AdvReac Severe yeast Verified 05/19/23 14:42 [From Jardiance] infection lisinopril AdvReac Intermediate Cough Verified 05/19/23 14:42 Family History Father COPD (chronic obstructive pulmonary disease) Heart disease Mother CAD (coronary artery disease) Myocardial infarction CVA (cerebral vascular accident) Diabetes Brother CAD (coronary artery disease) Pacemaker Diabetes History of coronary artery bypass surgery Brother Brain aneurysm Surgical History History of cardiac catheterization History of coronary artery stent placement History of hip replacement History of left heart catheterization (LHC) (~02/06/21) Presence of coronary angioplasty implant and graft (~05/01/18) Social History household members: spouse Smoking Status: Former smoker how long ago did patient quit smokin years ago, smoked since 14 years old. alcohol intake: former details: Quit in 1980 substance use type: does not use caffeine: Yes Type: coffee Number of servings: 2 ROS <SIGRID Connolly - Last Filed: 05/19/23 20:35> ROS ED Constitutional Constitutional ED: Denies chills or fever(s) Eyes Eyes: Denies change in vision Cardiovascular Cardiovascular: Denies chest pain or palpitations Respiratory/Chest Respiratory/Chest: Reports cough, dyspnea, dyspnea on exertion and wheezing Gastrointestinal Gastrointestinal: Denies abdominal pain, nausea or vomiting Genitourinary Genitourinary ED: Denies dysuria, hematuria or urinary urgency Musculoskeletal Musculoskeletal: Denies arthralgias or myalgias Integumentary Denies rash Neurologic Neurologic: Denies weakness EXAM <SIGRID Connolly - Last Filed: 05/19/23 20:35> Physical Exam Const Vital Signs: 05/19/23 14:42 05/19/23 15:21 05/19/23 15:21 Temperature 97.1 F L Temperature Source Temporal Pulse Rate 52 L 50 L Respiratory Rate 20 H 16 Respiratory Effort Respiratory Depth Respiratory Pattern Blood Pressure 128/48 H Blood Pressure Mean 74 Pulse Ox 95 94 Oxygen Delivery Method Room Air Room Air Room Air 05/19/23 15:23 05/19/23 15:53 05/19/23 16:09 Temperature Temperature Source Pulse Rate 55 L 62 Respiratory Rate 16 12 Respiratory Effort Labored Respiratory Depth Normal Respiratory Pattern Tachypnea Normal Blood Pressure Blood Pressure Mean Pulse Ox 91 Oxygen Delivery Method Room Air Room Air 05/19/23 17:23 Temperature Temperature Source Pulse Rate 63 Respiratory Rate 18 Respiratory Effort Respiratory Depth Respiratory Pattern Blood Pressure 145/63 H Blood Pressure Mean 90 Pulse Ox 93 Oxygen Delivery Method Room Air Positive well nourished, well developed and no apparent distress General Appearance ED: well developed HEENT Reports normocephalic and head/scalp atraumatic Mouth ED: Yes moist mucous membranes normal Eyes PERRL and EOMs intact bilaterally Neck full ROM and supple Chest Wall inspection of chest normal Resp normal respiratory effort Auscultation: wheezes expiratory wheezes and throughout Cardio regular rate and regular rhythm GI soft to palpation, non-tender, non-distended and no masses Back/Spine normal ROM and normal to inspection Extremity normal to inspection and full ROM Neuro oriented x3, CN's II-XII intact bilaterally, moves all extremities, no focal motor deficits and no sensory deficits noted Sensorium / Orientation: awake and alert Psych mental status grossly normal and thought process normal Skin no rashes or lesions noted and no wounds <Dr. Yong Bass DO - Last Filed: 05/19/23 22:39> Physical Exam Const Vital Signs: 05/19/23 14:42 05/19/23 15:21 05/19/23 15:21 Temperature 97.1 F L Temperature Source Temporal Pulse Rate 52 L 50 L Respiratory Rate 20 H 16 Respiratory Effort Respiratory Depth Respiratory Pattern Blood Pressure 128/48 H Blood Pressure Mean 74 Pulse Ox 95 94 Oxygen Delivery Method Room Air Room Air Room Air 05/19/23 15:23 05/19/23 15:53 05/19/23 16:09 Temperature Temperature Source Pulse Rate 55 L 62 Respiratory Rate 16 12 Respiratory Effort Labored Respiratory Depth Normal Respiratory Pattern Tachypnea Normal Blood Pressure Blood Pressure Mean Pulse Ox 91 Oxygen Delivery Method Room Air Room Air 05/19/23 17:23 Temperature Temperature Source Pulse Rate 63 Respiratory Rate 18 Respiratory Effort Respiratory Depth Respiratory Pattern Blood Pressure 145/63 H Blood Pressure Mean 90 Pulse Ox 93 Oxygen Delivery Method Room Air [facility] <SIGRID Connolly - Last Filed: 05/19/23 20:35> [facility] Narrative Medical decision making narrative: Patient presenting due to shortness of breath that he has had for the past few days, reports that he has been more wheezy than usual. He does have history of COPD. He does have oxygen at home to use if needed. Chest x-ray will be obtained to rule out infiltrate and other cardiopulmonary abnormality, and is negative for any acute findings. Labs obtained to rule out ACS, anemia, electrolyte abnormality, CHADD. H&H 11.8 and 34.6, creatinine 1.41, GFR 53. Patient was given breathing treatments and Solu-Medrol. On reexamination he reports improvement of his symptoms, oxygen saturation remains above 93% on room air. We will treat patient with steroids. 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 He will be discharged home in stable condition and is comfortable with plan. Lab Data Attestation: I reviewed the patient's lab results. Labs: Laboratory Results - last 24 hr 05/19/23 14:55 WBC 6.4 RBC 3.61 L Hgb 11.8 L Hct 34.6 L MCV 95.8 H MCH 32.7 H MCHC 34.1 RDW Std Deviation 45.1 H RDW Coeff of Anthony 12.8 Plt Count 220 MPV 8.8 Immature Gran % (Auto) 0.300 Neut % (Auto) 65.9 Lymph % (Auto) 24.8 [place] % (Auto) 5.3 Eos % (Auto) 2.8 Baso % (Auto) 0.9 Absolute Neuts (auto) 4.2 Absolute Lymphs (auto) 1.58 Nucleated RBC % 0 Sodium 137 Potassium 3.6 Chloride 104 Carbon Dioxide 24.0 Anion Gap 9 BUN 13 Creatinine 1.41 H Estim Creat Clear Calc 44.93 Est GFR (MDRD) Af Amer 64 Est GFR (MDRD) Non-Af 53 L BUN/Creatinine Ratio 9.2 L Glucose 195 H Calcium 9.2 Troponin I High Sens 27 Radiography X-Ray: Read by ED Physician and Read by Radiologist Diagnostic Testing: Clinical Impression(s) from Imaging Studies Chest X-Ray 05/19/23 15:38 IMPRESSION: Mild interstitial thickening in the right base likely chronic. No gross infiltration or pulmonary edema Electronically Signed: Tarik Rubin MD at 16:54 EST , EKG Initial EKG: Comments: 57 bpm, sinus bradycardia, no ST elevation, reviewed and interpreted by attending ED physician. <Dr. Yong Bass, DO - Last Filed: 05/19/23 22:39> [facility] Lab Data Labs: Laboratory Results - last 24 hr 05/19/23 14:55 WBC 6.4 RBC 3.61 L Hgb 11.8 L Hct 34.6 L MCV 95.8 H MCH 32.7 H MCHC 34.1 RDW Std Deviation 45.1 H RDW Coeff of Anthony 12.8 Plt Count 220 MPV 8.8 Immature Gran % (Auto) 0.300 Neut % (Auto) 65.9 Lymph % (Auto) 24.8 [place] % (Auto) 5.3 Eos % (Auto) 2.8 Baso % (Auto) 0.9 Absolute Neuts (auto) 4.2 Absolute Lymphs (auto) 1.58 Nucleated RBC % 0 Sodium 137 Potassium 3.6 Chloride 104 Carbon Dioxide 24.0 Anion Gap 9 BUN 13 Creatinine 1.41 H Estim Creat Clear Calc 44.93 Est GFR (MDRD) Af Amer 64 Est GFR (MDRD) Non-Af 53 L BUN/Creatinine Ratio 9.2 L Glucose 195 H Calcium 9.2 Troponin I High Sens 27 Radiography Diagnostic Testing: Clinical Impression(s) from Imaging Studies Chest X-Ray 05/19/23 15:38 IMPRESSION: Mild interstitial thickening in the right base likely chronic. No gross infiltration or pulmonary edema Electronically Signed: Tarik Rubin MD at 16:54 EST Reading Location ID and State: [facility] / [place] Tel , Service support , Treatment and Re-Evaluation :: I have personally performed a face to face assessment of the patient and have reviewed the SALLY Note. I performed a substantive portion of the visit including all aspects of the following. My hall findings include: History: Patient presents with shortness of breath that has been getting worse over the past few days. Patient states it is gradually getting worse. Patient has a history of COPD and has been wheezing. Patient admits to a cough with clear sputum. Patient also admits to some rhinorrhea. Patient also admits to some pain in his chest. Patient denies any fevers or chills. Patient states nothing makes his breathing worse and nothing makes it better. noted that the patient has been bradycardic over the past couple days as well. Exam: Vital signs are stable except for bradycardia of 50. Patient is afebrile. Patient is in no acute distress. Oral mucosa is pink and moist. Neck is supple. Trachea is midline. There is no JVD. Heart was bradycardic but regular. Lungs showed diffuse expiratory wheezing. There is good respiratory effort noted. Abdomen is soft. Bowel sounds are normal. There is no tenderness. Cranial nerves II through XII are intact. There are no focal motor or sensory deficits noted. Extremities are intact. There is no calf tenderness or edema. Medical Decision Making: Differential diagnosis includes COPD exacerbation, pneumonia, pneumothorax, cardiac dysrhythmia, cardiac ischemia, and anxiety. Chest x-ray will be obtained to assess for pneumonia and pneumothorax. EKG will be obtained to assess for cardiac dysrhythmia and cardiac ischemia. CBC will be obtained to assess for leukocytosis and anemia. Basic metabolic profile will be obtained to assess for electrolyte abnormality and renal function. High-sensitivity troponin will be obtained to assess for cardiac ischemia. 2-hour repeat high-sensitivity troponin will be obtained to assess for ongoing cardiac ischemia. Patient was given a DuoNeb aerosol here. Patient was given a dose of Solu-Medrol. CBC was reviewed. Hemoglobin was slightly low at 11.8 and hematocrit 34.6. Basic metabolic profile was reviewed. Creatinine was slightly elevated at 1.41 which was increased from previous result. High-sensitivity troponin was reviewed and was normal at 27. PA and lateral chest x-ray was obtained. There are 2 views. On my independent interpretation, lung lim are clear. There is normal cardiac silhouette. Bony thorax is normal. There is no acute process noted. Radiologist also interpreted the x-ray and agrees. Patient was feeling better on reevaluation. Patient was advised of his findings. Patient was instructed to follow-up with his primary care physician in 5 to 7 days. Patient understood and was agreeable with the plan. All questions were answered. Discharge Plan Triage Chief Complaint: Shortness of Breath ED Midlevel Provider: Alba England ED Provider: Yong Bass Dx/Rx/DC Orders Clinical Impression: COPD exacerbation Instructions: ED COPD Flare Prescriptions: New prednisone 20 mg tablet 40 mg PO DAILY 5 Days Qty: 10 0RF No Action Daliresp 500 mcg tablet 500 mcg PO QPM Rx Instructions: Takes in the PM omega-3 fatty acids [Fish Oil Concentrate] 1,000 mg capsule 2,000 mg PO BID tamsulosin 0.4 mg capsule 0.4 mg PO DAILY cholecalciferol (vitamin D3) 2,000 unit tablet 2,000 unit tablet 2,000 unit PO QPM torsemide 10 mg tablet 5 mg PO DAILY albuterol sulfate 2.5 mg /3 mL (0.083 %) solution for nebulization 2.5 mg INHALATION 4X/DAY PRN (Reason: Sob &/Or Wheezing) magnesium oxide 400 mg magnesium tablet 400 mg PO DAILY acetaminophen 650 mg tablet extended release 1,300 mg PO Q12H gabapentin 300 mg capsule 300 mg PO TID sertraline 50 mg tablet 50 mg PO DAILY azithromycin [Zithromax] 250 mg tablet 250 mg PO DAILY Rx Instructions: start on day 2 of therapy memantine 5 mg tablet 5 mg PO QPM donepezil 5 mg tablet 5 mg PO DAILY Trelegy Ellipta 100-62.5-25 mcg blister with device 1 inh inhalation DAILY atorvastatin 40 MG tablet 40 mg PO QHS Patient Comments: CHOLESTEROL metformin 1,000 MG tablet 1,000 mg PO BIDCM Patient Comments: DIABETES valsartan 320 MG tablet 320 mg PO DAILY Patient Comments: BLOOD PRESSURE albuterol sulfate 1 PUFF inhaler 2 puff INHALATION Q4H PRN PRN (Reason: Shortness Of Breath) Patient Comments: BREATHING clotrimazole 1 % Cream 1 applic TOPICAL BID PRN (Reason: feet) pantoprazole [Protonix] 40 mg tablet,delayed release (DR/EC) 40 mg PO DAILY Qty: 30 2RF ascorbic acid (vitamin C) 500 mg tablet 500 mg PO BID Qty: 60 0RF nifedipine 90 mg Tablet Extended Release 90 mg PO DAILY tramadol 50 mg Tablet 50 mg PO BID PRN (Reason: Pain) mirtazapine 15 mg tablet 15 mg PO DAILY ferrous gluconate 324 mg (37.5 mg iron) Tablet 324 mg PO LUNCH Qty: 0 0RF Mucinex DM 30-600 mg Tablet Extended Release 12 Hr 2 tab PO BID 7 Days Qty: 28 0RF apixaban 5 mg tablet 5 mg PO BID Qty: 180 4RF prednisone 5 mg tablet 5 mg PO QODAY Qty: 30 0RF Rx Instructions: start from 07/17/21 after completion of prednisone taper amlodipine 5 mg tablet 5 mg PO DAILY Qty: 90 3RF Primary Care Provider: Umesh Orr Referrals: Umesh Orr MD [Primary Care Provider] - 3-5 Days Activity Restrictions/Additional Instructions: Please follow-up with your PCP and return for any worsening of your symptoms. Disposition Disposition: Home, Self Care Discharge Date/Time: 05/19/23 17:24
--- NOTE | 2023-05-19 15:38 | RAD_ITS ---
STUDY: X-RAY CHEST REASON FOR EXAM: Male, 73 years old. SOB TECHNIQUE: PA and lateral COMPARISON: July 22, 2022 FINDINGS: Minor interstitial thickening in the right lung likely chronic. There is no demonstrated pleural abnormality. Normal size heart. Normal mediastinum and darryl. Normal visualized pulmonary arteries. Mildly calcified aortic arch and descending thoracic aorta. Dorsal spine and shoulders demonstrates degenerative changes. Normal visualized ribs, clavicles, and shoulders. There is no demonstrated abnormality of the visualized soft tissue structures of the upper abdomen. There is improved aeration of both lower lobes since previous exam RAD/Chest PA and Lateral IMPRESSION: Mild interstitial thickening in the right base likely chronic. No gross infiltration or pulmonary edema Electronically Signed: Tarik Rubin MD at 16:54 EST ,
[2023-05-19] MEDS: Ipratropium/Albuterol Sulfate 3 ML AMPUL.NEB INHALATION (15:50)
[2023-05-19] MEDS: Albuterol 2.5 MG/3 ML VIAL.NEB. INHALATION (15:50)
[2023-05-19 15:53] VITALS: PULSE 55; RESP 16
[2023-05-19] MEDS: MethylPREDNISolone 125 MG/2 ML Vial IV (16:06)
[2023-05-19 16:09] VITALS: PULSE 62; RESP 12; O2SAT 91
[2023-05-19 17:06] LABS: Reflex Troponin-HS? (from REC) Y
[2023-05-19 17:23] VITALS: BP 145/63; PULSE 63; RESP 18; O2SAT 93
== END 2023-05-19 17:24 | disposition home or self-care (01) ==
PROVIDERS: Emergency Provider Emergency Medicine; PCP Family Medicine; Visit Provider Emergency Medicine
DX: J44.1 Chronic obstructive pulmonary disease with (acute) exacerbation (principal); G30.9 Alzheimer's disease, unspecified; I48.0 Paroxysmal atrial fibrillation; E11.9 Type 2 diabetes mellitus without complications; E78.5 Hyperlipidemia, unspecified; I10 Essential (primary) hypertension; I25.10 Atherosclerotic heart disease of native coronary artery without angina pectoris; Z87.891 Personal history of nicotine dependence; Z99.81 Dependence on supplemental oxygen; Z79.899 Other long term (current) drug therapy; Z79.84 Long term (current) use of oral hypoglycemic drugs; K21.9 Gastro-esophageal reflux disease without esophagitis; Z79.01 Long term (current) use of anticoagulants; Z95.5 Presence of coronary angioplasty implant and graft; Z96.649 Presence of unspecified artificial hip joint
CPT/HCPCS: 71046; 80048; 84484; 85025; 93005; 94640; 99283; A4216

== ENCOUNTER 2023-07-06 09:16 | Emergency (ER) | payer MEDICARE, SELFPAY ==
[2018-05-01 14:21] VITALS: BMI 36.8
[2023-07-06 09:17] VITALS: BP 135/63; PULSE 86; RESP 20; TEMP 36.6; O2SAT 93; BMI 34.2
--- NOTE | 2023-07-06 09:55 | EKG12_ITS ---
Test Reason : SOB Blood Pressure : / mmHG Vent. Rate : 087 BPM Atrial Rate : 087 BPM P-R Int : 148 ms QRS Dur : 086 ms QT Int : 346 ms P-R-T Axes : 059 053 083 degrees QTc Int : 416 ms Normal sinus rhythm Nonspecific T wave abnormality Abnormal ECG Confirmed by JAYY SIMMS, ALONZO ([id number]), scientific editor MITCHELL BANSAL ([id number]) on 07/15/2023 9:14:29 AM Referred By: Confirmed By:ALONZO HOPE MD
--- NOTE | 2023-07-06 09:57 | EDS_ITS ---
HPI History of Present Illness Chief Complaint: General Illness Informant: patient and spouse/S.O. Narrative Narrative: 73-year-old male with a history of dementia and COPD presenting to the emergency room with fever. states that Friday into he developed cough some wheezing as well as a sore throat. She spoke with his doctor who prescribed him azithromycin and began 40 of prednisone daily. states that last night he developed fever and she spoke with the on-call physician who sent him to the emergency room. He has oxygen as needed at home. He takes Tylenol arthritis twice a day and she did not administer any other antipyretics during the night. She states the fever has been up and down. It got better after a shower. No vomiting or diarrhea. [facility] Medical History Acute and chronic respiratory failure with hypoxia Acute and chronic respiratory failure with hypoxia Acute on chronic anemia Alcoholism Anemia Atherosclerotic heart disease of [place] coronary artery without angina pectoris Atrial fibrillation Atrial fibrillation and flutter BiPAP (biphasic positive airway pressure) dependence CAD (coronary artery disease) COPD (chronic obstructive pulmonary disease) COPD exacerbation COVID Diabetes Dyspnea Encounter for screening for COVID-19 Essential hypertension Former smoker GERD (gastroesophageal reflux disease) GI bleed History of GI bleed History of short term memory loss Hydrocele, bilateral Hyperlipemia Hypokalemia Lung nodule, multiple On home oxygen therapy ELISHA (obstructive sleep apnea) Paroxysmal atrial fibrillation Pneumonia Presence of stent in coronary artery (~05/01/18) Pulmonary HTN Sleep apnea Suspected COVID-19 virus infection Type 2 diabetes mellitus Home Medications albuterol sulfate 90 mcg/actuation aerosol inhaler 2 puff inhalation Q4H PRN PRN Shortness Of Breath 06/24/15 [History Last Taken 07/22/22] atorvastatin 40 mg tablet 40 mg PO QHS Cholesterol 06/24/15 [History Last Taken 07/21/22] metformin 1,000 mg tablet 1,000 mg PO BIDCM Diabetes 06/24/15 [History Last Taken 07/22/22] valsartan 320 mg tablet 320 mg PO DAILY BP 06/24/15 [History Last Taken 07/22/22] cholecalciferol (vitamin D3) 50 mcg (2,000 unit) tablet 2,000 unit PO QPM vitamin 04/14/18 [History Last Taken 07/22/22] omega-3 fatty acids 1,000 mg capsule (Fish Oil Concentrate) 2,000 mg PO BID Heart health 04/14/18 [History Last Taken 07/22/22] roflumilast 500 mcg tablet (Daliresp) 500 mcg PO QPM COPD 04/14/18 [History Last Taken 07/21/22] tamsulosin 0.4 mg capsule 0.4 mg PO DAILY Prostate 04/14/18 [History Last Taken 07/21/22] albuterol sulfate 2.5 mg/3 mL (0.083 %) solution for nebulization 2.5 mg inhalation 4X/DAY PRN Sob &/Or Wheezing 10/15/18 [History Last Taken 07/22/22] torsemide 10 mg tablet 5 mg PO DAILY diuretic 10/15/18 [History Last Taken 07/22/22] magnesium oxide 400 mg PO DAILY 10/25/20 [History Last Taken 07/21/22] sertraline 50 mg tablet 50 mg PO DAILY 08/01/21 [History Last Taken 07/22/22] ascorbic acid (vitamin C) 500 mg tablet 500 mg PO BID #60 tabs 11/27/21 [Rx Last Taken 07/22/22] clotrimazole 1 % topical cream 1 applic topical BID PRN feet 11/27/21 [History Last Taken Unknown] pantoprazole 40 mg tablet,delayed release (Protonix) 40 mg PO DAILY #30 tabs 11/27/21 [Rx Last Taken 07/22/22] nifedipine 90 mg tablet,extended release 90 mg PO DAILY 03/15/22 [History Last Taken 07/22/22] tramadol 50 mg tablet 50 mg PO BID PRN Pain 03/15/22 [History Last Taken 07/22/22] acetaminophen 650 mg tablet,extended release 1,300 mg PO Q12H 05/08/22 [History Last Taken 07/21/22] gabapentin 300 mg capsule 300 mg PO TID 05/08/22 [History Last Taken 07/22/22] dextromethorphan-guaifenesin 30 mg-600 mg tablet extended [id number] hr (Mucinex DM) 2 tab PO BID 7 days #28 tabs 07/27/22 [Rx Last Taken Unknown] ferrous gluconate 324 mg (37.5 mg iron) tablet 324 mg PO LUNCH #0 tabs 07/27/22 [Rx Last Taken Unknown] amlodipine 5 mg tablet 5 mg PO DAILY #90 tabs 11/11/22 [Rx Last Taken Unknown] azithromycin 250 mg tablet (Zithromax) 250 mg PO DAILY 11/27/22 [History Last Taken Unknown] donepezil 5 mg tablet 5 mg PO DAILY 11/27/22 [History Last Taken Unknown] memantine 5 mg tablet 5 mg PO QPM 11/27/22 [History Last Taken Unknown] aspirin 81 mg tablet,delayed release (Adult Low Dose Aspirin) 81 mg PO DAILY [History Last Taken Unknown] budesonide 160 mcg-glycopyr 9 mcg-formot 4.8 mcg/actuation HFA inhaler (Breztri Aerosphere) 2 inh inhalation BID 05/29/23 [History Last Taken Unknown] mirtazapine 15 mg tablet 30 mg PO DAILY SLEEP 05/29/23 [History Last Taken Unknown] prednisone 5 mg tablet 20 mg PO DAILY 05/29/23 [History Last Taken Unknown] Allergy/AdvReac Type Severity Reaction Status Date / Time doxycycline Allergy Severe Rash Verified 07/06/23 09:20 empagliflozin AdvReac Severe yeast Verified 07/06/23 09:20 [From Jardiance] infection lisinopril AdvReac Intermediate Cough Verified 07/06/23 09:20 Family History Father COPD (chronic obstructive pulmonary disease) Heart disease Mother CAD (coronary artery disease) Myocardial infarction CVA (cerebral vascular accident) Diabetes Brother CAD (coronary artery disease) Pacemaker Diabetes History of coronary artery bypass surgery Brother Brain aneurysm Surgical History History of cardiac catheterization History of coronary artery stent placement History of hip replacement History of left heart catheterization (LHC) (~02/06/21) Presence of coronary angioplasty implant and graft (~05/01/18) Social History household members: spouse Smoking Status: Former smoker how long ago did patient quit smokin years ago, smoked since 14 years old. alcohol intake: former details: Quit in 1980 substance use type: does not use caffeine: Yes Type: coffee Number of servings: 2 ROS ROS ED Constitutional Constitutional ED: Reports chills and fever(s); Denies weight loss Eyes Eyes: Denies change in vision or diplopia ENT ENT ED: Reports rhinorrhea; Denies ear pain or sore throat Cardiovascular Cardiovascular: Denies chest pain, orthopnea, palpitations or racing heartbeat Respiratory/Chest Respiratory/Chest: Reports cough and dyspnea; Denies orthopnea Gastrointestinal Gastrointestinal: Denies abdominal pain, diarrhea, nausea or vomiting Genitourinary Genitourinary ED: Denies dysuria, hematuria or urinary frequency Musculoskeletal Musculoskeletal: Reports myalgias; Denies arthralgias Integumentary Denies abscess or rash Neurologic Neurologic: Reports headache(s); Denies weakness Psychiatric Psychiatric: Denies anxiety, depression, suicidal ideation or suicidal thoughts Endocrine Endocrinology: Denies polydipsia, polyphagia or polyuria Allergic/Immunologic Allergic/Immunologic ED: Denies mouth swelling, tongue swelling or urticaria EXAM Physical Exam Const Vital Signs: 07/06/23 09:17 07/06/23 10:06 07/06/23 10:11 Temperature 97.8 F Temperature Source Temporal Pulse Rate 86 92 90 Respiratory Rate 20 H 16 15 Respiratory Effort Respiratory Pattern Normal Blood Pressure 135/63 H Blood Pressure Mean 87 Pulse Ox 93 92 Oxygen Delivery Method Room Air Room Air 07/06/23 10:12 07/06/23 12:12 Temperature Temperature Source Pulse Rate 88 Respiratory Rate 20 H Respiratory Effort Normal Short of Breath Respiratory Pattern Normal Blood Pressure 140/72 H Blood Pressure Mean 94 Pulse Ox 91 Oxygen Delivery Method Room Air Positive well nourished and well developed General Appearance ED: well developed HEENT Reports normocephalic, head/scalp atraumatic and moist mucous membranes Eyes PERRL and EOMs intact bilaterally Neck no lymphadenopathy, supple and no JVD Resp normal respiratory effort Auscultation: wheezes expiratory wheezes Cardio regular rate, regular rhythm and no murmurs GI normal to inspection, nondistended, normoactive bowel sounds and non-tender Palpation: soft Back/Spine no CVA tenderness and normal ROM Extremity normal to inspection General Extremety ED: Negative for edema General Extremity: Negative for edema Neuro oriented x3 and CN's II-XII intact bilaterally Sensorium / Orientation: alert Motor Exam: strength 5/5 throughout Psych mental status grossly normal Mood & Affect: Negative for depressed or tearful Skin no rashes or lesions noted and no wounds MDM MDM MDM Narrative Medical decision making narrative: My independent interpretation of the chest x-ray is no acute process. Radiology concurs. White count 8.8 hemoglobin of 10. Troponin is 38. Glucose 281. urinalysis shows no overt infection. Patient received a breathing treatment. He is not requiring any supplemental oxygen. He is not in any distress or increased work of breathing. Patient is currently on steroids and antibiotics. Not seeing an obvious cause for the patient to be hospitalized today. He will follow-up with doctors return if worsening. History & Record Review Discussion w/independent historian: Patient and Family Lab Data Attestation: I reviewed the patient's lab results. Labs: Laboratory Results - last 24 hr 07/06/23 07/06/23 09:57 12:00 WBC 8.8 RBC 3.19 L Hgb 10.0 L Hct 31.5 L MCV 98.7 H MCH 31.3 MCHC 31.7 L RDW Std Deviation 51.3 H RDW Coeff of Anthony 14.2 Plt Count 188 MPV 9.5 Immature Gran % (Auto) 0.800 Neut % (Auto) 94.9 H Lymph % (Auto) 1.3 L [place] % (Auto) 2.7 Eos % (Auto) 0.1 Baso % (Auto) 0.2 Absolute Neuts (auto) 8.3 H Absolute Lymphs (auto) 0.11 L Nucleated RBC % 0 Differential Comment SCANNED Sodium 134 L Potassium 3.9 Chloride 102 Carbon Dioxide 22.0 Anion Gap 10 BUN 13 Creatinine 1.26 Estim Creat Clear Calc 50.27 Est GFR (MDRD) Af Amer 73 Est GFR (MDRD) Non-Af 60 BUN/Creatinine Ratio 10.3 Glucose 281 H Calcium 8.9 Total Bilirubin 0.50 AST 28 ALT 38 Alkaline Phosphatase 89 Troponin I High Sens 38 Total Protein 6.9 Albumin 3.8 Globulin 3.1 Albumin/Globulin Ratio 1.2 Urine Color Yellow Urine Clarity Clear Urine pH 6.0 Ur Specific [place] 1.010 Urine Protein Negative Urine Glucose (UA) 250 H Urine Ketones Negative Urine Occult Blood Negative Urine Nitrite Negative Urine Bilirubin Negative Urine Urobilinogen Normal Ur Leukocyte Esterase Negative Urine RBC 0 SEEN Urine WBC 0 SEEN Ur Squamous Epith Cells 0-5 SEEN Urine Bacteria 0 SEEN Urine Mucus 0 SEEN Radiography Diagnostic Testing: Clinical Impression(s) from Imaging Studies Chest X-Ray 07/06/23 10:13 IMPRESSION: Stable hyperinflation and hyperlucency with no acute finding. Electronically Signed: Guillermo De Anda MD at 10:24 EST , EKG Initial EKG: Attestation: I personally reviewed and interpreted this EKG as follows: Comments: Normal sinus rhythm with a ventricular rate of 87 bpm. No definitive features of ACS noted. Discharge Plan Triage Chief Complaint: General Illness ED Provider: Bayron Gonzalez Dx/Rx/DC Orders Clinical Impression: COPD with acute exacerbation, Dementia, Acute febrile illness Instructions: ED COPD Flare, ED Viral Syndrome (Adult) Prescriptions: No Action Daliresp 500 mcg tablet 500 mcg PO QPM Rx Instructions: Takes in the PM omega-3 fatty acids [Fish Oil Concentrate] 1,000 mg capsule 2,000 mg PO BID tamsulosin 0.4 mg capsule 0.4 mg PO DAILY cholecalciferol (vitamin D3) 2,000 unit tablet 2,000 unit tablet 2,000 unit PO QPM torsemide 10 mg tablet 5 mg PO DAILY albuterol sulfate 2.5 mg /3 mL (0.083 %) solution for nebulization 2.5 mg INHALATION 4X/DAY PRN (Reason: Sob &/Or Wheezing) magnesium oxide 400 mg magnesium tablet 400 mg PO DAILY acetaminophen 650 mg tablet extended release 1,300 mg PO Q12H gabapentin 300 mg capsule 300 mg PO TID sertraline 50 mg tablet 50 mg PO DAILY azithromycin [Zithromax] 250 mg tablet 250 mg PO DAILY Rx Instructions: start on day 2 of therapy memantine 5 mg tablet 5 mg PO QPM donepezil 5 mg tablet 5 mg PO DAILY prednisone 5 mg tablet 20 mg PO DAILY Rx Instructions: for three more days aspirin [Adult Low Dose Aspirin] 81 mg tablet,delayed release (DR/EC) 81 mg PO DAILY Breztri Aerosphere 160-9-4.8 mcg/actuation HFA aerosol inhaler 2 inh inhalation BID atorvastatin 40 MG tablet 40 mg PO QHS Patient Comments: CHOLESTEROL metformin 1,000 MG tablet 1,000 mg PO BIDCM Patient Comments: DIABETES valsartan 320 MG tablet 320 mg PO DAILY Patient Comments: BLOOD PRESSURE albuterol sulfate 1 PUFF inhaler 2 puff INHALATION Q4H PRN PRN (Reason: Shortness Of Breath) Patient Comments: BREATHING clotrimazole 1 % Cream 1 applic TOPICAL BID PRN (Reason: feet) pantoprazole [Protonix] 40 mg tablet,delayed release (DR/EC) 40 mg PO DAILY Qty: 30 2RF ascorbic acid (vitamin C) 500 mg tablet 500 mg PO BID Qty: 60 0RF nifedipine 90 mg Tablet Extended Release 90 mg PO DAILY tramadol 50 mg Tablet 50 mg PO BID PRN (Reason: Pain) ferrous gluconate 324 mg (37.5 mg iron) Tablet 324 mg PO LUNCH Qty: 0 0RF Mucinex DM 30-600 mg Tablet Extended Release 12 Hr 2 tab PO BID 7 Days Qty: 28 0RF mirtazapine 15 mg tablet 30 mg PO DAILY amlodipine 5 mg tablet 5 mg PO DAILY Qty: 90 3RF Primary Care Provider: Umesh Orr Referrals: Umesh Orr MD [Primary Care Provider] - As soon as possible Disposition Disposition: Home, Self Care
[2023-07-06] MEDS: Ipratropium/Albuterol Sulfate 3 ML AMPUL.NEB INHALATION (10:04)
[2023-07-06 10:06] VITALS: PULSE 92; RESP 16
[2023-07-06 10:11] VITALS: PULSE 90; RESP 15; O2SAT 92
--- NOTE | 2023-07-06 10:13 | RAD_ITS ---
STUDY: X-RAY CHEST REASON FOR EXAM: Male, 73 years old. Fever and cough. TECHNIQUE: Single frontal view of the chest on 2 images. COMPARISON: May 19, 2023 FINDINGS: Stable hyperinflation and hyperexpansion. There is no demonstrated pleural abnormality. Borderline cardiomegaly unchanged. Normal mediastinum and darryl. Stable prominent central pulmonary arteries. Aortic tortuosity with calcification, unchanged. Normal visualized thoracic spine. Normal visualized ribs, clavicles, and shoulders. No abnormality of the visualized soft tissue structures of the upper abdomen. RAD/Chest 1 View (Portable) IMPRESSION: Stable hyperinflation and hyperlucency with no acute finding. Electronically Signed: Guillermo De Anda MD at 10:24 EST ,
[2023-07-06 10:18] LABS: Absolute Lymphocyte Count 0.11 X10^3/uL (0.83-4.51); Absolute Neutrophil Count 8.3 X10^3/uL (2.0-7.7); Basophil# 0.02 X10^3/uL; Basophil% 0.2 % (0-1); Eosinophil# 0.01 X10^3/uL; Eosinophils% 0.1 % (0-5); Hematocrit 31.5 % (40-54); Lymphocyte # 0.11 X10^3/ul (0.83-4.51); Lymphocyte % 1.3 % (19-41); Mean Corp Hgb Conc 31.7 g/dL (32-36); Mean Corpuscular Hgb 31.3 pg (27.0-32.0); Mean Corpuscular Volume 98.7 fL (80-94); Mean Platelet Vol. 9.5 fl (6.2-12.0); Monocyte# 0.24 X10^3/uL; Monocyte% 2.7 % (0-10); NRBC Flagged by Analyzer 0 % (0-5); Neutrophil # 8.33 X10^3/uL (2.7-7.7); Neutrophil % 94.9 % (47-70); POSITIVE DIFFERENTIAL YES; Platelet Count 188 K/mm3 (150-450); RBC Distribution Width CV 14.2 % (11.6-14.6); RBC Distribution Width SD 51.3 fl (35.1-43.9); Red Blood Count 3.19 M/mm3 (4.6-6.2); White Blood Count 8.8 K/mm3 (4.4-11.0)
[2023-07-06 10:28] LABS: Differential Indicated SCAN CRITERIA MET
[2023-07-06 10:38] LABS: ALB/GLOB Ratio 1.2 RATIO (0.9-2.4); AST(SGOT) 28 U/L (15-37); Alanine Aminotransfer ALT/SGPT 38 U/L (16-61); Albumin, Serum 3.8 g/dL (3.2-5.0); Alkaline Phosphatase 89 U/L (45-117); Anion Gap 10 (5-15); BUN 13 mg/dL (7-18); BUN/Creat Ratio 10.3 RATIO (10-20); Calcium,Total 8.9 mg/dL (8.5-10.1); Chloride 102 mmol/L (98-107); Creatinine, Serum 1.26 mg/dL (0.70-1.30); EST Glomerular Filtration Rate 60 mL/min (>60); Est Glom Filt Rate - Afr Amer 73 mL/min (>60); Estimated Creatinine Clearance 50.27 ml/min; Globulin 3.1 g/dL (2.2-4.2); Glucose 281 mg/dL (74-106); Potassium 3.9 mmol/L (3.5-5.1); Protein, Total 6.9 g/dL (6.4-8.2); Sodium Level 134 mmol/L (136-145); Troponin-I HS 38 pg/mL (3.0-78.0)
[2023-07-06 10:48] LABS: Differential Comment SCANNED
[2023-07-06 12:06] LABS: Bacteria 0 SEEN /hpf (None Seen); Mucous, Urine 0 SEEN /hpf (<or=2+); Red Blood Cells-Urine 0 SEEN /hpf (0-5); White Blood Cells 0 SEEN /hpf (0-5)
[2023-07-06 12:12] VITALS: BP 140/72; PULSE 88; RESP 20; O2SAT 91
[2023-07-06 12:18] LABS: Color, Urine Yellow (Yellow); Glucose, Dipstick 250 mg/dl (Normal); Ketone-Dipstick Negative (Negative); Leukocyte Esterase-Dipstick Negative /ul (Negative); Nitrite-Dipstick Negative (Negative); Occult Blood-Urine Negative /ul (Negative); Protein-Dipstick Negative (Negative); Urine Bilirubin Dipstick Negative (Negative); Urine Clarity Clear (Clear); Urine Urobilinogen Normal (Normal)
[2023-07-06 12:25] LABS: Squamous Epithelial Cells - UA 0-5 SEEN /hpf (0-5)
[2023-07-06 13:50] VITALS: BP 155/63; PULSE 78; RESP 17
== END 2023-07-06 13:50 | disposition home or self-care (01) ==
PROVIDERS: Emergency Provider Emergency Medicine; PCP Family Medicine; Visit Provider Emergency Medicine
DX: J44.1 Chronic obstructive pulmonary disease with (acute) exacerbation (principal); F03.90 Unspecified dementia, unspecified severity, without behavioral disturbance, psychotic disturbance, mood disturbance, and anxiety; I48.0 Paroxysmal atrial fibrillation; E11.9 Type 2 diabetes mellitus without complications; I25.10 Atherosclerotic heart disease of native coronary artery without angina pectoris; E78.5 Hyperlipidemia, unspecified; Z87.891 Personal history of nicotine dependence; I10 Essential (primary) hypertension; R50.9 Fever, unspecified; G47.33 Obstructive sleep apnea (adult) (pediatric); Z99.81 Dependence on supplemental oxygen
CPT/HCPCS: 99283; 71045; 80053; 81001; 84484; 85025; 87428; 87807; 93005; 94640

== ENCOUNTER 2023-07-08 20:28 | Inpatient (IN) | payer OTHER, SELFPAY ==
[2018-05-01 14:21] VITALS: BMI 36.8
[2023-07-08] VITALS (7 sets, daily range): BP systolic 156–176; BP diastolic 65–74; PULSE 95–129; RESP 16–24; TEMP 37.5–38.9; O2SAT 93–95; BMI 35.9
--- NOTE | 2023-07-08 21:08 | EKG12_ITS ---
Test Reason : SOB Blood Pressure : / mmHG Vent. Rate : 116 BPM Atrial Rate : 116 BPM P-R Int : 158 ms QRS Dur : 090 ms QT Int : 316 ms P-R-T Axes : 066 069 045 degrees QTc Int : 439 ms Sinus tachycardia Cannot rule out Inferior infarct , age undetermined Abnormal ECG Confirmed by JAYY SIMMS, ALONZO ([id number]), science editor MITCHELL BANSAL ([id number]) on 07/15/2023 8:21:42 AM Referred By: Confirmed By:ALONZO HOPE MD
--- NOTE | 2023-07-08 21:10 | ED.VIS.DYS ---
HPI History of Present Illness Chief Complaint: Shortness of Breath Narrative Narrative: History and physical is limited secondary to dementia. Per EMS, patient was seen in the emergency department 2 days ago for the same. They were called because of increasing shortness of breath. Patient states he has COPD and wears 8 L of oxygen at home. He has had cough, and today he reportedly spiked a fever. He denies any chest pain or swelling of his legs, no other symptoms. [facility] Medical History Acute and chronic respiratory failure with hypoxia Acute and chronic respiratory failure with hypoxia Acute on chronic anemia Alcoholism Anemia Atherosclerotic heart disease of [place] coronary artery without angina pectoris Atrial fibrillation Atrial fibrillation and flutter BiPAP (biphasic positive airway pressure) dependence CAD (coronary artery disease) COPD (chronic obstructive pulmonary disease) COPD exacerbation COVID Diabetes Dyspnea Encounter for screening for COVID-19 Essential hypertension Former smoker GERD (gastroesophageal reflux disease) GI bleed History of GI bleed History of short term memory loss Hydrocele, bilateral Hyperlipemia Hypokalemia Lung nodule, multiple On home oxygen therapy ELISHA (obstructive sleep apnea) Paroxysmal atrial fibrillation Pneumonia Presence of stent in coronary artery (~05/01/18) Pulmonary HTN Sleep apnea Suspected COVID-19 virus infection Type 2 diabetes mellitus Home Medications albuterol sulfate 90 mcg/actuation aerosol inhaler 2 puff inhalation Q4H PRN PRN Shortness Of Breath 06/24/15 [History Last Taken 07/22/22] atorvastatin 40 mg tablet 40 mg PO QHS Cholesterol 06/24/15 [History Last Taken 07/21/22] metformin 1,000 mg tablet 1,000 mg PO BIDCM Diabetes 06/24/15 [History Last Taken 07/22/22] valsartan 320 mg tablet 320 mg PO DAILY BP 06/24/15 [History Last Taken 07/22/22] omega-3 fatty acids 1,000 mg capsule (Fish Oil Concentrate) 1,000 mg PO BID Heart health 04/14/18 [History Last Taken 07/22/22] roflumilast 500 mcg tablet (Daliresp) 500 mcg PO QPM COPD 04/14/18 [History Last Taken 07/21/22] tamsulosin 0.4 mg capsule 0.4 mg PO DAILY Prostate 04/14/18 [History Last Taken 07/21/22] albuterol sulfate 2.5 mg/3 mL (0.083 %) solution for nebulization 2.5 mg inhalation 4X/DAY PRN Sob &/Or Wheezing 10/15/18 [History Last Taken 07/22/22] torsemide 10 mg tablet 5 mg PO DAILY diuretic 10/15/18 [History Last Taken 07/22/22] magnesium oxide 400 mg PO QHS 10/25/20 [History Last Taken 07/21/22] sertraline 50 mg tablet 50 mg PO DAILY 08/01/21 [History Last Taken 07/22/22] ascorbic acid (vitamin C) 500 mg tablet 500 mg PO BID #60 tabs 11/27/21 [Rx Last Taken 07/22/22] clotrimazole 1 % topical cream 1 applic topical BID PRN feet 11/27/21 [History Last Taken Unknown] pantoprazole 40 mg tablet,delayed release (Protonix) 40 mg PO DAILY #30 tabs 11/27/21 [Rx Last Taken 07/22/22] nifedipine 90 mg tablet,extended release 90 mg PO DAILY 03/15/22 [History Last Taken 07/22/22] tramadol 50 mg tablet 50 mg PO BID Pain 03/15/22 [History Last Taken 07/22/22] acetaminophen 650 mg tablet,extended release 1,300 mg PO Q12H 05/08/22 [History Last Taken 07/21/22] gabapentin 300 mg capsule 300 mg PO TID 05/08/22 [History Last Taken 07/22/22] dextromethorphan-guaifenesin 30 mg-600 mg tablet extended [id number] hr (Mucinex DM) 2 tab PO BID 7 days #28 tabs 07/27/22 [Rx Last Taken Unknown] amlodipine 5 mg tablet 5 mg PO DAILY #90 tabs 11/11/22 [Rx Last Taken Unknown] azithromycin 250 mg tablet (Zithromax) 250 mg PO DAILY 11/27/22 [History Last Taken Unknown] donepezil 5 mg tablet 5 mg PO QHS 11/27/22 [History Last Taken Unknown] memantine 5 mg tablet 5 mg PO QPM 11/27/22 [History Last Taken Unknown] aspirin 81 mg tablet,delayed release (Adult Low Dose Aspirin) 81 mg PO DAILY 05/29/23 [History Last Taken Unknown] budesonide 160 mcg-glycopyr 9 mcg-formot 4.8 mcg/actuation HFA inhaler (Breztri Aerosphere) 2 inh inhalation BID 05/29/23 [History Last Taken Unknown] mirtazapine 15 mg tablet 30 mg PO QHS SLEEP 05/29/23 [History Last Taken Unknown] cholecalciferol (vitamin D3) 25 mcg (1,000 unit) capsule (Vitamin D3) 25 mcg PO DAILY 07/08/23 [History Last Taken Unknown] clopidogrel 75 mg tablet 75 mg PO DAILY 07/08/23 [History Last Taken Unknown] ferrous gluconate 324 mg (37.5 mg iron) tablet 324 mg PO BID 07/08/23 [History Last Taken Unknown] montelukast 10 mg tablet 10 mg PO QHS 07/08/23 [History Last Taken Unknown] prednisone 10 mg tablet 10 mg PO DAILY 07/08/23 [History Last Taken Unknown] sulfamethoxazole 400 mg-trimethoprim 80 mg tablet (Bactrim) 1 tab PO BID 07/08/23 [History Last Taken Unknown] Allergy/AdvReac Type Severity Reaction Status Date / Time doxycycline Allergy Severe Rash Verified 07/06/23 09:20 empagliflozin AdvReac Severe yeast Verified 07/06/23 09:20 [From Jardiance] infection lisinopril AdvReac Intermediate Cough Verified 07/06/23 09:20 Family History Father COPD (chronic obstructive pulmonary disease) Heart disease Mother CAD (coronary artery disease) Myocardial infarction CVA (cerebral vascular accident) Diabetes Brother CAD (coronary artery disease) Pacemaker Diabetes History of coronary artery bypass surgery Brother Brain aneurysm Surgical History History of cardiac catheterization History of coronary artery stent placement History of hip replacement History of left heart catheterization (LHC) (~02/06/21) Presence of coronary angioplasty implant and graft (~05/01/18) Social History household members: spouse Smoking Status: Former smoker how long ago did patient quit smokin years ago, smoked since 14 years old. alcohol intake: former details: Quit in 1980 substance use type: does not use caffeine: Yes Type: coffee Number of servings: 2 ROS ROS ED ROS Narrative Limited secondary to dementia. Constitutional: Positive fever, no chills. HEENT: No sore throat. No neck pain. No loss of vision. No rhinorrhea. Cardiovascular: No chest pain. No palpitations. No pedal edema. Respiratory: Positive cough, increasing shortness of breath. Abdominal: No abdominal pain. No nausea. No vomiting. Genitourinary: No dysuria. No hematuria. Musculoskeletal: No myalgias. No arthralgias. Neurologic: No headaches. No dizziness. No lightheadedness. Skin: No rash. No change in color. Psychiatric: No depression. No anxiety. EXAM Physical Exam Narrative Exam Narrative: Positive fever 102.1 ?F vital signs noted. HEENT: Normocephalic. Atraumatic. PERRL, EOMI. Neck soft and supple. No point tenderness or step off. Cardiovascular: Tachycardia no murmurs, rubs, or gallops appreciated. Respiratory: No tachypnea. Lungs clear to auscultation bilaterally. Creased breath sounds bilateral bases. Gastrointestinal: Abdomen soft, nontender, with normoactive bowel sounds. No rebound or guarding. Neurological: Awake. Alert. Oriented to person and place. Nonfocal, nonlateralizing. Skin: No rash. Normal color. No pallor. Musculoskeletal: No pedal edema. Full range of motion extremities. Const Vital Signs: 07/08/23 20:29 07/08/23 20:32 07/08/23 20:57 Temperature 102.1 F H 102.1 F H Temperature Source Oral Oral Pulse Rate 129 H 123 H Respiratory Rate 24 H 22 H Respiratory Effort Short of Breath Respiratory Pattern Tachypnea Blood Pressure 176/65 H 176/65 H Blood Pressure Mean 102 102 Pulse Ox 94 94 Oxygen Delivery Method Nasal Cannula Nasal Cannula Nasal Cannula Oxygen Flow Rate (L/min) 3 3 3 Fraction of Inspired Oxygen (FIO2) 07/08/23 21:14 07/08/23 21:28 07/08/23 22:00 Temperature 99.5 F H Temperature Source Oral Pulse Rate 110 H 95 Respiratory Rate 21 H 22 H Respiratory Effort Respiratory Pattern Blood Pressure 158/67 H 157/65 H Blood Pressure Mean 97 95 Pulse Ox 94 93 Oxygen Delivery Method Nasal Cannula Nasal Cannula CPAP Oxygen Flow Rate (L/min) 3 3 3 Fraction of Inspired Oxygen (FIO2) 92 07/08/23 23:00 07/08/23 23:59 Temperature Temperature Source Pulse Rate 110 H 104 H Respiratory Rate 20 H 16 Respiratory Effort Respiratory Pattern Normal Blood Pressure 156/74 H Blood Pressure Mean 101 Pulse Ox 93 Oxygen Delivery Method Nasal Cannula Oxygen Flow Rate (L/min) 3 Fraction of Inspired Oxygen (FIO2) MDM MDM MDM Narrative Medical decision making narrative: Differential diagnosis is COPD exacerbation versus pneumonia versus COVID. Given his elevated temperature of 102.1 degrees and his tachycardia with hypertension, he might also have a hypertensive encephalopathy. Sepsis workup was pursued. I did review his prior records and he was seen in the emergency department 2 days ago. At that time, he had symptoms prior for few days and reported fever which had resolved as well. His doctor had called him in azithromycin and he started prednisone although he had denied using steroids to me on this visit. He will be given Tylenol for his elevated temperature and comprehensive workup pursued again. I reviewed his laboratory work and he has a normal white count of 4.6 with a hemoglobin stable at 9.7, hematocrit 30.0, platelet count normal at 153. He has neutrophils elevated 79.9. INR is normal at 1.2 with a PTT of 28.7. He is hyponatremic with a sodium of 132 and potassium slightly low at 3.4, BUN elevated at 19 with creatinine 1.26. Glucose is elevated at 213 but he has a normal anion gap of 11 so I do not have suspicion for diabetic ketoacidosis. Lactic acid is elevated at 3.9. He will be bolused IV fluids. High-sensitivity troponin is 9. EKG was obtained and interpreted by myself independently as normal sinus rhythm/tachycardia at [address] changes. No STEMI. His urinalysis is negative for infection with 0-5 white cells. His COVID and influenza swabs are also negative. Chest x-ray in 1 view interpreted by myself independently shows no evidence of pneumonia or pneumothorax. I reviewed the radiology report which comments on interstitial increased lung markings at the bilateral bases but no significant change from previous. I had also reviewed the chest x-ray from 2 days ago and see no significant change. At this point in time, I am unsure as to the source of his fever, however on his CMP, he also has transaminase velázquez AST of 737 and ALT of 478. Alk phos is elevated at 253. I will add an acute hepatitis panel. Given his transaminases and lactic acidosis, although he is not having abdominal pain, I obtained a CT of the abdomen and pelvis with IV contrast. Reviewed the radiology report which shows there is no acute process. I will treat his lactic acidosis/sepsis of unknown source with vancomycin 2 g and Zosyn 4.45 g. Patient will be discussed with the hospitalist, Dr. Wooten for admission. He will be given additional dose of normal saline/bolus of 1000 mL. I did not do to 30 eaters per kilogram as his lactic acid is less than 4 and he is not hypotensive. Patient is in stable condition. History & Record Review Discussion w/independent historian: Patient and Family Additional record(s) reviewed:: Prior ED visit and Prior labs Lab Data Attestation: I reviewed the patient's lab results. Labs: Laboratory Results - last 24 hr 07/08/23 07/08/23 07/08/23 20:35 21:30 21:44 WBC 4.6 RBC 3.05 L Hgb 9.7 L Hct 30.0 L MCV 98.4 H MCH 31.8 MCHC 32.3 RDW Std Deviation 51.2 H RDW Coeff of Anthony 14.1 Plt Count 153 MPV 9.6 Immature Gran % (Auto) 0.400 Neut % (Auto) 79.9 H Lymph % (Auto) 11.3 L [place] % (Auto) 5.6 Eos % (Auto) 2.4 Baso % (Auto) 0.4 Absolute Neuts (auto) 3.7 Absolute Lymphs (auto) 0.52 L Nucleated RBC % 0 Differential Comment SCANNED PT 15.0 H INR 1.2 APTT 28.7 Sodium 132 L Potassium 3.4 L Chloride 98 Carbon Dioxide 23.0 Anion Gap 11 BUN 19 H Creatinine 1.26 Estim Creat Clear Calc 52.02 Est GFR (MDRD) Af Amer 73 Est GFR (MDRD) Non-Af 60 BUN/Creatinine Ratio 15.1 Glucose 213 H Lactic Acid 3.9 H* Calcium 9.0 Total Bilirubin 0.70 AST 737 H ALT 478 H Alkaline Phosphatase 253 H Troponin I High Sens 8 Total Protein 6.9 Albumin 3.5 Globulin 3.4 Albumin/Globulin Ratio 1.0 Urine Color Yellow Urine Clarity Sl. Cloudy Urine pH 6.0 Ur Specific [place] 1.020 Urine Protein 30 H Urine Glucose (UA) Normal Urine Ketones Negative Urine Occult Blood 25 H Urine Nitrite Negative Urine Bilirubin Negative Urine Urobilinogen 1 H Ur Leukocyte Esterase 25 H Urine RBC 0-5 SEEN Urine WBC 0-5 SEEN Ur Squamous Epith Cells 0-5 SEEN Amorphous Sediment 1+ PHOS Urine Bacteria 0 SEEN Urine Mucus 0 SEEN Radiography Chest X-Ray - ED: 1 View and Read by ED Physician Diagnostic Testing: Clinical Impression(s) from Imaging Studies Chest X-Ray 07/08/23 22:00 IMPRESSION: Increased interstitial markings at the lung bases unchanged Electronically Signed: Kurtis Marie MD at 23:09 EST , Abdomen/Pelvis CT 07/08/23 22:32 IMPRESSION: No acute disease Electronically Signed: Kurtis Marie MD at 0:19 EST , Management Discussion w/another healthcare provider: Hospitalist (Dr. Wooten) Discharge Plan Dx/Rx/DC Orders Clinical Impression: Transaminitis, Fever, Lactic acidosis Disposition Disposition: Acute Care [facility]
[2023-07-08 21:24] LABS: Absolute Lymphocyte Count 0.52 X10^3/uL (0.83-4.51); Absolute Neutrophil Count 3.7 X10^3/uL (2.0-7.7); Basophil# 0.02 X10^3/uL; Basophil% 0.4 % (0-1); Eosinophil# 0.11 X10^3/uL; Eosinophils% 2.4 % (0-5); Hemoglobin 9.7 g/dL (13.0-16.5); Lymphocyte # 0.52 X10^3/ul (0.83-4.51); Lymphocyte % 11.3 % (19-41); Mean Corp Hgb Conc 32.3 g/dL (32-36); Mean Corpuscular Hgb 31.8 pg (27.0-32.0); Mean Corpuscular Volume 98.4 fL (80-94); Mean Platelet Vol. 9.6 fl (6.2-12.0); Monocyte# 0.26 X10^3/uL; Monocyte% 5.6 % (0-10); NRBC Flagged by Analyzer 0 % (0-5); Neutrophil # 3.69 X10^3/uL (2.7-7.7); Neutrophil % 79.9 % (47-70); POSITIVE DIFFERENTIAL YES; Platelet Count 153 K/mm3 (150-450); RBC Distribution Width CV 14.1 % (11.6-14.6); RBC Distribution Width SD 51.2 fl (35.1-43.9); Red Blood Count 3.05 M/mm3 (4.6-6.2); White Blood Count 4.6 K/mm3 (4.4-11.0)
[2023-07-08 21:37] LABS: Differential Indicated SCAN CRITERIA MET
[2023-07-08 21:38] LABS: AST(SGOT) 737 U/L (15-37); Alanine Aminotransfer ALT/SGPT 478 U/L (16-61); Albumin, Serum 3.5 g/dL (3.2-5.0); Alkaline Phosphatase 253 U/L (45-117); Anion Gap 11 (5-15); BUN 19 mg/dL (7-18); BUN/Creat Ratio 15.1 RATIO (10-20); Chloride 98 mmol/L (98-107); Creatinine, Serum 1.26 mg/dL (0.70-1.30); EST Glomerular Filtration Rate 60 mL/min (>60); Est Glom Filt Rate - Afr Amer 73 mL/min (>60); Estimated Creatinine Clearance 52.02 ml/min; Globulin 3.4 g/dL (2.2-4.2); Glucose 213 mg/dL (74-106); Potassium 3.4 mmol/L (3.5-5.1); Protein, Total 6.9 g/dL (6.4-8.2); Sodium Level 132 mmol/L (136-145); Troponin-I HS 8 pg/mL (3.0-78.0)
[2023-07-08] MEDS: Acetaminophen 325 MG Tablet 650 MG PO (21:49)
[2023-07-08] MEDS: 0.9% Normal Saline (1000mL) 1,000 ML 999 ML IV (21:49)
[2023-07-08 21:53] LABS: Differential Comment SCANNED
[2023-07-08 21:58] LABS: Bacteria 0 SEEN /hpf (None Seen); Mucous, Urine 0 SEEN /hpf (<or=2+)
--- NOTE | 2023-07-08 22:00 | RAD_ITS ---
STUDY: X-RAY CHEST REASON FOR EXAM: Male, 73 years old. Fever TECHNIQUE: Single frontal view of the chest. COMPARISON: July 06, 2023 FINDINGS: Increased interstitial markings at the lung bases. There is no demonstrated pleural abnormality. Normal size heart. Normal mediastinum and darryl. Normal visualized pulmonary arteries. Normal visualized aortic arch and descending thoracic aorta. Normal visualized thoracic spine. Normal visualized ribs, clavicles, and shoulders. There is no demonstrated abnormality of the visualized soft tissue structures of the upper abdomen. RAD/Chest 1 View (Portable) IMPRESSION: Increased interstitial markings at the lung bases unchanged Electronically Signed: Kurtis Marie MD at 23:09 EST ,
[2023-07-08 22:02] LABS: Color, Urine Yellow (Yellow); Glucose, Dipstick Normal (Normal); Ketone-Dipstick Negative (Negative); Leukocyte Esterase-Dipstick 25 /ul (Negative); Nitrite-Dipstick Negative (Negative); Occult Blood-Urine 25 /ul (Negative); Protein-Dipstick 30 mg/dl (Negative); Urine Bilirubin Dipstick Negative (Negative); Urine Clarity Sl. Cloudy (Clear); Urine Urobilinogen 1 mg/dl (Normal)
[2023-07-08 22:09] LABS: Amorphous Sediment 1+ PHOS; Red Blood Cells-Urine 0-5 SEEN /hpf (0-5); Squamous Epithelial Cells - UA 0-5 SEEN /hpf (0-5); White Blood Cells 0-5 SEEN /hpf (0-5)
[2023-07-08 22:09] LABS: International Normalized Ratio 1.2
[2023-07-08 22:10] LABS: Partial Thromboplast Time 28.7 Seconds (24.1-36.2)
[2023-07-08 22:31] LABS: Lactic Acid 3.9 mmol/L (0.4-1.9)
--- NOTE | 2023-07-08 22:32 | CT_ITS ---
STUDY: CT ABDOMEN AND PELVIS WITH CONTRAST REASON FOR EXAM: Male, 73 years old. transamination RADIATION DOSAGE (If Supplied By Facility): CTDIvol = ( 22.54 ) mGy, DLP = ( 1992.71 ) mGycm TECHNIQUE: Transaxial images were obtained from the dome of the diaphragm to the symphysis pubis without oral contrast. IV 100mL [id number]-[id number] was administered. Sagittal and coronal images were reconstructed. Individualized dose optimization techniques were used for this CT. COMPARISON: None. FINDINGS: The visualized lung bases are unremarkable. Calcific coronary artery disease. Multiple hepatic cysts on the left measuring several millimeters each. Normal gallbladder and extrahepatic biliary system. Normal spleen. Normal pancreas. Normal bilateral adrenal glands. Normal right kidney. Normal left kidney. Normal visualized stomach. Normal small intestine. Normal colon. The appendix is visualized and appears normal. Calcified plaque along the aorta and its branches. Normal inferior vena cava. Normal retroperitoneum. Normal urinary bladder. Normal abdominal wall. Mild scoliosis and spondylosis. Diffuse demineralization.] Total hip arthroplasty. CT/Abdomen/Pelvis W IV Cont ONLY IMPRESSION: No acute disease Electronically Signed: Kurtis Marie MD at 0:19 EST ,
[2023-07-08] MEDS: Ipratropium/Albuterol Sulfate 3 ML AMPUL.NEB INHALATION (23:59)
[2023-07-09] VITALS (14 sets, daily range): BP systolic 110–169; BP diastolic 52–80; PULSE 68–113; RESP 14–20; TEMP 36.7–37.7; O2SAT 89–95; BMI 34.6
--- NOTE | 2023-07-09 00:33 | HP.PCM.HOS_ITS ---
HPI - General General Date of Admission: 07/09/23 Date of Service: 07/09/23 HPI Narrative ESTEFANY PEPPER, is a 73 M who presents with shortness of breath, he was seen in the emergency department 2 days back with similar concerns. He has a history of COPD and is on 8 L of oxygen at home. At the time of presentation he was febrile 202.1 noted hypertension. He has a past medical history of coronary artery disease with RCA stent, paroxysmal atrial flutter fibrillation s/p watchman seizure, hypertension, pulm hypertension, COPD, ELISHA, type 2 diabetes controlled with oral metformin. With similar symptoms to the ED 2 days back. He was having nocturnal fever epi sodes even then. Based on prior COPD exacerbations, his started him on prednisone therapy for 3 days. But there was no significant improvement in his shortness of breath during this time. Chest x-ray showed increased hemoglobin 9.6, WBC 10.5, platelet count 328, interstitial markings on lung bases. Lactic acid was 3.9 at presentation. AST 77, ALT 478, alk phos 253, urine leukoesterase 25, urine nitrate negative, urine WBC 0-5 For body aches he has been taking Tylenol 650 mg 4 times daily daily for the last few days. No other medication changes Used to smoke cigarettes but not been smoking for the past few years, no alcohol use, no marijuana use or any other drug use. [facility] Medical History Acute and chronic respiratory failure with hypoxia Acute and chronic respiratory failure with hypoxia Acute on chronic anemia Alcoholism Anemia Atherosclerotic heart disease of [place] coronary artery without angina pectoris Atrial fibrillation Atrial fibrillation and flutter BiPAP (biphasic positive airway pressure) dependence CAD (coronary artery disease) COPD (chronic obstructive pulmonary disease) COPD exacerbation COVID Diabetes Dyspnea Encounter for screening for COVID-19 Essential hypertension Former smoker GERD (gastroesophageal reflux disease) GI bleed History of GI bleed History of short term memory loss Hydrocele, bilateral Hyperlipemia Hypokalemia Lung nodule, multiple On home oxygen therapy ELISHA (obstructive sleep apnea) Paroxysmal atrial fibrillation Pneumonia Presence of stent in coronary artery (~05/01/18) Pulmonary HTN Sleep apnea Suspected COVID-19 virus infection Type 2 diabetes mellitus Home Medications albuterol sulfate 90 mcg/actuation aerosol inhaler 2 puff inhalation Q4H PRN PRN Shortness Of Breath 06/24/15 [History Last Taken 07/22/22] atorvastatin 40 mg tablet 40 mg PO QHS Cholesterol 06/24/15 [History Last Taken 07/21/22] metformin 1,000 mg tablet 1,000 mg PO BIDCM Diabetes 06/24/15 [History Last Taken 07/22/22] valsartan 320 mg tablet 320 mg PO DAILY BP 06/24/15 [History Last Taken 07/22/22 ] omega-3 fatty acids 1,000 mg capsule (Fish Oil Concentrate) 1,000 mg PO BID Heart health 04/14/18 [History Last Taken 07/22/22] roflumilast 500 mcg tablet (Daliresp) 500 mcg PO QPM COPD 04/14/18 [History Last Taken 07/21/22] tamsulosin 0.4 mg capsule 0.4 mg PO DAILY Prostate 04/14/18 [History Last Taken 07/21/22] albuterol sulfate 2.5 mg/3 mL (0.083 %) solution for nebulization 2.5 mg inhalation 4X/DAY PRN Sob &/Or Wheezing 10/15/18 [History Last Taken 07/22/22] torsemide 10 mg tablet 5 mg PO DAILY diuretic 10/15/18 [History Last Taken 07/22/22] magnesium oxide 400 mg PO QHS 10/25/20 [History Last Taken 07/21/22] sertraline 50 mg tablet 50 mg PO DAILY 08/01/21 [History Last Taken 07/22/22] ascorbic acid (vitamin C) 500 mg tablet 500 mg PO BID #60 tabs 11/27/21 [Rx Last Taken 07/22/22] clotrimazole 1 % topical cream 1 applic topical BID PRN feet 11/27/21 [History Last Taken Unknown] pantoprazole 40 mg tablet,delayed release (Protonix) 40 mg PO DAILY #30 tabs 11/27/21 [Rx Last Taken 07/22/22] nifedipine 90 mg tablet,extended release 90 mg PO DAILY 03/15/22 [History Last Taken 07/22/22] tramadol 50 mg tablet 50 mg PO BID Pain 03/15/22 [History Last Taken 07/22/22] acetaminophen 650 mg tablet,extended release 1,300 mg PO Q12H 10/26/22 [History Last Taken 07/21/22] gabapentin 300 mg capsule 300 mg PO TID 05/08/22 [History Last Taken 07/22/22] dextromethorphan-guaifenesin 30 mg-600 mg tablet extended [id number] hr (Mucinex DM) 2 tab PO BID 7 days #28 tabs 07/27/22 [Rx Last Taken Unknown] amlodipine 5 mg tablet 5 mg PO DAILY #90 tabs 11/11/22 [Rx Last Taken Unknown] azithromycin 250 mg tablet (Zithromax) 250 mg PO DAILY 11/27/22 [History Last Taken Unknown] donepezil 5 mg tablet 5 mg PO QHS 11/27/22 [History Last Taken Unknown] memantine 5 mg tablet 5 mg PO QPM 11/27/22 [History Last Taken Unknown] aspirin 81 mg tablet,delayed release (Adult Low Dose Aspirin) 81 mg PO DAILY 05/29/23 [History Last Taken Unknown] budesonide 160 mcg-glycopyr 9 mcg-formot 4.8 mcg/actuation HFA inhaler (Breztri Aerosphere) 2 inh inhalation BID 05/29/23 [History Last Taken Unknown] mirtazapine 15 mg tablet 30 mg PO QHS SLEEP 05/29/23 [History Last Taken Unknown] cholecalciferol (vitamin D3) 25 mcg (1,000 unit) capsule (Vitamin D3) 25 mcg PO DAILY 07/08/23 [History Last Taken Unknown] clopidogrel 75 mg tablet 75 mg PO DAILY 07/08/23 [History Last Taken Unknown] ferrous gluconate 324 mg (37.5 mg iron) tablet 324 mg PO BID 07/08/23 [History Last Taken Unknown] montelukast 10 mg tablet 10 mg PO QHS 07/08/23 [History Last Taken Unknown] prednisone 10 mg tablet 10 mg PO DAILY 07/08/23 [History Last Taken Unknown] sulfamethoxazole 400 mg-trimethoprim 80 mg tablet (Bactrim) 1 tab PO BID 1 09/08/22 [History Last Taken Unknown] Allergy/AdvReac Type Severity Reaction Status Date / Time doxycycline Allergy Severe Rash Verified 07/06/23 09:20 empagliflozin AdvReac Severe yeast Verified 07/06/23 09:20 [From Jardiance] infection lisinopril AdvReac Intermediate Cough Verified 07/06/23 09:20 Family History Father COPD (chronic obstructive pulmonary disease) Heart disease Mother CAD (coronary artery disease) Myocardial infarction CVA (cerebral vascular accident) Diabetes Brother CAD (coronary artery disease) Pacemaker Diabetes History of coronary artery bypass surgery Brother Brain aneurysm Surgical History History of cardiac catheterization History of coronary artery stent placement History of hip replacement History of left heart catheterization (LHC) (~02/06/21) Presence of coronary angioplasty implant and graft (~05/01/18) Social History household members: spouse Smoking Status: Former smoker how long ago did patient quit smokin years ago, smoked since 14 years old. alcohol intake: former details: Quit in 1980 substance use type: does not use caffeine: Yes Type: coffee Number of servings: 2 ROS ROS Narrative Much of the history is provided by bedside Review of Systems ROS Unobtainable: due to mental status ENT HEENT: Denies abnormal hearing, dysphagia, ear pain, epistaxis, headache(s), hearing loss, nasal congestion, nasal discharge, post nasal drip, sinus pressure, sore throat or other Cardiovascular Cardiovascular: Denies chest pain, claudication, dyspnea on exertion, edema, lightheadedness, orthopnea, palpitations, paroxysmal nocturnal dyspnea, rapid heart rate, syncope or other Respiratory/Chest Respiratory/Chest: Reports cough, excessive phlegm production and shortness of breath at rest Gastrointestinal Gastrointestinal: Denies abdominal pain or coffee ground emesis Genitourinary Genitourinary: Denies burning urination or difficulty urinating Musculoskeletal Musculoskeletal: Reports arthralgias, back pain and joint pain Vital Signs Vital Signs Vital Signs: 07/08/23 20:29 07/08/23 20:32 07/08/23 20:57 Temperature 102.1 F H 102.1 F H Temperature Source Oral Oral Pulse Rate 129 H 123 H Respiratory Rate 24 H 22 H Respiratory Effort Short of Breath Respiratory Pattern Tachypnea Blood Pressure 176/65 H 176/65 H Blood Pressure Mean 102 102 Pulse Ox 94 94 Oxygen Delivery Method Nasal Cannula Nasal Cannula Nasal Cannula Oxygen Flow Rate (L/min) 3 3 3 Fraction of Inspired Oxygen (FIO2) 07/08/23 21:14 07/08/23 21:28 07/08/23 22:00 Temperature 99.5 F H Temperature Source Oral Pulse Rate 110 H 95 Respiratory Rate 21 H 22 H Respiratory Effort Respiratory Pattern Blood Pressure 158/67 H 157/65 H Blood Pressure Mean 97 95 Pulse Ox 94 93 Oxygen Delivery Method Nasal Cannula Nasal Cannula CPAP Oxygen Flow Rate (L/min) 3 3 3 Fraction of Inspired Oxygen (FIO2) 92 07/08/23 23:00 07/08/23 23:59 07/09/23 00:30 Temperature Temperature Source Pulse Rate 110 H 104 H 113 H Respiratory Rate 20 H 16 20 H Respiratory Effort Respiratory Pattern Normal Blood Pressure 156/74 H 160/72 H Blood Pressure Mean 101 98 Pulse Ox 93 91 Oxygen Delivery Method Nasal Cannula Oxygen Flow Rate (L/min) 3 Fraction of Inspired Oxygen (FIO2) Weight Weight: 236 lb 5.369 oz Body Mass Index (BMI) 35.9 Physical Exam Eyes PERRL Neck no lymphadenopathy Resp Auscultation: rhonchi lower bilaterally Cardio regular rate and regular rhythm GI normal to inspection, nondistended, normoactive bowel sounds Extremity Extremity Narrative: No pedal edema Neuro Neuro Narrative: Alert oriented x 2, per the has been getting more confused. Results Medical Records Data Attestation: I reviewed the patient's medical records Lab / Micro Data Attestation: I reviewed the patient's lab results. Lab results narrative: WBC at lower limit of normal concerning for leukopenia, hemoglobin 9.7, potassium 3.4, BUN 19, AST 737, ALT 478, alk phos 253 07/09/23 02:35 07/09/23 02:35 Labs: Laboratory Results - last 24 hr 07/08/23 20:35: WBC 4.6, RBC 3.05 L, Hgb 9.7 L, Hct 30.0 L, MCV 98.4 H, MCH 31.8, MCHC 32.3, RDW Std Deviation 51.2 H, RDW Coeff of Anthony 14.1, Plt Count 153, MPV 9.6, Immature Gran % (Auto) 0.400, Neut % (Auto) 79.9 H, Lymph % (Auto) 11.3 L, Potter % (Auto) 5.6, Eos % (Auto) 2.4, Baso % (Auto) 0.4, Absolute Neuts (auto) 3.7, Absolute Lymphs (auto) 0.52 L, Nucleated RBC % 0, Differential Comment SCANNED, PT 15.0 H, INR 1.2, APTT 28.7, Sodium 132 L, Potassium 3.4 L, Chloride 98, Carbon Dioxide 23.0, Anion Gap 11, BUN 19 H, Creatinine 1.26, Estim Creat Clear Calc 52.02, Est GFR (MDRD) Af Amer 73, Est GFR (MDRD) Non-Af 60, BUN/Creatinine Ratio 15.1, Glucose 213 H, Calcium 9.0, Total Bilirubin 0.70, AST 737 H, ALT 478 H, Alkaline Phosphatase 253 H, Troponin I High Sens 8, Total Protein 6.9, Albumin 3.5, Globulin 3.4, Albumin/Globulin Ratio 1.0 07/08/23 21:30: Lactic Acid 3.9 H* 07/08/23 21:44: Urine Color Yellow, Urine Clarity Sl. Cloudy, Urine pH 6.0, Ur Specific Jbphh 1.020, Urine Protein 30 H, Urine Glucose (UA) Normal, Urine Ketones Negative, Urine Occult Blood 25 H, Urine Nitrite Negative, Urine Bilirubin Negative, Urine Urobilinogen 1 H, Ur Leukocyte Esterase 25 H, Urine RBC 0-5 SEEN, Urine WBC 0-5 SEEN, Ur Squamous Epith Cells 0-5 SEEN, Amorphous Sediment 1+ PHOS, Urine Bacteria 0 SEEN, Urine Mucus 0 SEEN Micro: Microbiology 07/08/23 21:26 Nasal Secretion SARS-CoV-2 & FLU Antigen (Rapid) - Final Imagaing Radiology Impression Chest X-Ray 07/08/23 22:00 IMPRESSION: Increased interstitial markings at the lung bases unchanged Electronically Signed: Kurtis Marie MD at 23:09 EST Reading Location ID and State: [address] [place] [address] Tel , Service support , Abdomen/Pelvis CT 07/08/23 22:32 IMPRESSION: No acute disease Electronically Signed: Kurtis Marie MD at 0:19 EST Reading Location ID and State: [facility] / ID Tel , Service support , Assessment & Plan Assessment/Plan (1) Acute febrile illness: PLAN: Plan Mr Pepper, 73-year-old gentleman presents to the ED with concerns of acute febrile illness and worsening shortness of breath. There has been no significant response despite home antibiotic and steroid therapy. The differentials for his elevated transaminase levels include ischemic versus Tylenol associated versus rhabdomyolysis (very less likely). 1. Acute on chronic respiratory failure: Likely due to underlying COPD exacerbation, will change to IV antibiotic at this time. 2. Suspected sepsis: Elevated lactate, WBC at lower limit of normal, transaminases and the fever episodes are suspicious for ongoing sepsis. Blood cultures were drawn from the ED, will start on broad-spectrum antibiotics at this time. He is also on prednisone 40 mg daily increasing his risk of infection. 3. Elevated transaminase levels: Both ALT and AST are elevated, will monitor with daily LFTs, monitor INR, follow-up on viral serologies sent from the ED. The likely reason could be ischemic hepatic injury. Continue management for sepsis. If there is no improvement will consider ultrasound and Doppler of the liver 4. Coronary artery disease, A-fib: Repeat echocardiogram to rule out worsening cardiac function and suspected cor pulmonale due to the COPD 5. Type 2 diabetes: HbA1c levels, insulin per sliding scale, nutrition consult 6. Hypertension: Continue home medications 7. Iron deficiency anemia continue monitoring hemoglobin, continue iron supplementation
[2023-07-09] MEDS: Piperacil/Tazobactam 4.5 GM in 0.9% Normal Saline (100mL MB+) 100 ML IV (00:50)
[2023-07-09] MEDS: 0.9% Normal Saline (1000mL) 1,000 ML 999 ML IV (01:05)
[2023-07-09] MEDS: Vancomycin HCl 2,000 MG in 0.9% Normal Saline (500mL Bag) 500 ML 250 MG IV (01:42)
[2023-07-09 01:45] LABS: Reflex Lactate? Y
[2023-07-09] MEDS: Donepezil HCl 5 MG Tablet PO ×2 (02:18→21:16)
[2023-07-09] MEDS: Mirtazapine 30 MG Tablet PO ×2 (02:18→21:16)
[2023-07-09] MEDS: Montelukast 10 MG Tablet PO ×2 (02:19→21:16)
[2023-07-09 02:47] LABS: Absolute Lymphocyte Count 0.29 X10^3/uL (0.83-4.51); Absolute Neutrophil Count 2.7 X10^3/uL (2.0-7.7); Basophil# 0.02 X10^3/uL; Basophil% 0.6 % (0-1); Eosinophil# 0.09 X10^3/uL; Eosinophils% 2.7 % (0-5); Hematocrit 25.2 % (40-54); Hemoglobin 8.2 g/dL (13.0-16.5); Lymphocyte # 0.29 X10^3/ul (0.83-4.51); Lymphocyte % 8.6 % (19-41); Mean Corp Hgb Conc 32.5 g/dL (32-36); Mean Corpuscular Hgb 32.2 pg (27.0-32.0); Mean Corpuscular Volume 98.8 fL (80-94); Mean Platelet Vol. 9.1 fl (6.2-12.0); Monocyte# 0.28 X10^3/uL; Monocyte% 8.3 % (0-10); NRBC Flagged by Analyzer 0 % (0-5); Neutrophil # 2.66 X10^3/uL (2.7-7.7); Neutrophil % 78.9 % (47-70); POSITIVE DIFFERENTIAL YES; Platelet Count 127 K/mm3 (150-450); RBC Distribution Width CV 14.3 % (11.6-14.6); RBC Distribution Width SD 51.5 fl (35.1-43.9); Red Blood Count 2.55 M/mm3 (4.6-6.2); White Blood Count 3.4 K/mm3 (4.4-11.0)
[2023-07-09 03:17] LABS: AST(SGOT) 401 U/L (15-37); Alanine Aminotransfer ALT/SGPT 417 U/L (16-61); Albumin, Serum 2.9 g/dL (3.2-5.0); Alkaline Phosphatase 249 U/L (45-117); Anion Gap 11 (5-15); BUN 16 mg/dL (7-18); BUN/Creat Ratio 13.4 RATIO (10-20); Bilirubin, Direct 0.21 mg/dL (0.00-0.30); Calcium,Total 7.9 mg/dL (8.5-10.1); Chloride 104 mmol/L (98-107); Creatinine, Serum 1.19 mg/dL (0.70-1.30); EST Glomerular Filtration Rate 64 mL/min (>60); Est Glom Filt Rate - Afr Amer 77 mL/min (>60); Estimated Creatinine Clearance 55.08 ml/min; Glucose 317 mg/dL (74-106); Magnesium 1.8 mg/dL (1.6-2.6); Phosphorus 3.1 mg/dL (2.5-4.9); Potassium 3.4 mmol/L (3.5-5.1); Protein, Total 5.9 g/dL (6.4-8.2); Sodium Level 137 mmol/L (136-145); Thyroid Stim Hormone (TSH) 0.68 uIU/mL (0.358-3.74)
[2023-07-09 03:35] LABS: International Normalized Ratio 1.1; Prothrombin Time (Protime)PT. 14.6 SECONDS (11.7-14.9)
[2023-07-09 03:54] LABS: Differential Indicated SCAN CRITERIA MET
[2023-07-09 04:22] LABS: Differential Comment SCANNED
[2023-07-09] MEDS: 0.9% Normal Saline (1000mL) 1,000 ML 100 ML IV (05:00)
[2023-07-09] MEDS: Gabapentin 300 MG Capsule PO ×3 (05:18→21:17)
--- NOTE | 2023-07-09 06:32 | ECHOD_ITS ---
Reason For Study: CHF Procedure This was a 2D Doppler, Color Flow transthoracic echocardiogram. Exam performed portable in patient room. Left Ventricle Normal LV size. Normal size and thickness. Left ventricular systolic function is normal. The estimated ejection fraction is 60 %. Stage 2 diastolic dysfunction. No regional wall motion abnormalities noted. Right Ventricle Normal RV size. Normal systolic function. Atria The left and right atria are normal. Mitral Valve The mitral valve is structurally normal. No prolapse or stenosis seen. Mild (1+) mitral valve insufficiency. Tricuspid Valve Normal tricuspid valve. Mild (1+) tricuspid valve insufficiency. Right ventricular systolic pressure estimated to be 48 mmHg. Aortic Valve Moderate diffuse aortic valve thickening. Aortic sclerosis, no stenosis. The aortic valve is not well visualized in the short axis view. Trivial aortic valve insufficiency. Pulmonic Valve The pulmonic valve is not well visualized. Great Vessels Normal aortic root. Plethoric inferior vena cava. Pericardium/Pleural No pericardial effusion. MMode/2D Measurements & Calculations LVIDd: 5.4 cm IVSd: 1.1 cm Ao root diam: 3.0 cm LVIDs: 3.2 cm LVPWd: 1.1 cm RVDd: 4.3 cm FS: 39.6 % LAV(MOD-bp): 53.5 ml LVAd ap4: 30.6 cm2 SV(MOD-sp4): 61.1 ml LAV(MOD-bp) Indexed: 24.8 ml/m2 LVLd ap4: 8.1 cm LAV(MOD-sp2): 66.0 ml EDV(MOD-sp4): 96.7 ml LAV(MOD-sp4): 43.4 ml EDV(sp4-el): 98.3 ml LVAs ap4: 16.4 cm2 LVLs ap4: 6.6 cm ESV(MOD-sp4): 35.7 ml ESV(sp4-el): 35.0 ml EF(MOD-sp4): 63.1 % EF(sp4-el): 64.4 % SV(sp4-el): 63.3 ml LA A4 area: 17.0 cm2 LA dimension(2D): 4.8 cm RA A4 area: 13.8 cm2 TAPSE: 2.4 cm Time Measurements MV dec time: 0.20 sec Doppler Measurements & Calculations MV E max trip: 123.5 cm/sec Lat Peak E' Trip: 8.9 cm/sec Med Peak E' Trip: 9.2 cm/sec MV A max trip: 88.3 cm/sec E/E' lat: 13.9 E/E' med: 13.4 MV E/A: 1.4 Ao V2 max: 190.9 cm/sec LV V1 max: 152.5 cm/sec MV dec slope: 613.1 cm/sec2 Ao max P.6 mmHg LV V1 max P.3 mmHg Ao V2 mean: 142.1 cm/sec LV V1 mean P.8 mmHg Ao mean P.7 mmHg LV V1 mean: 117.2 cm/sec Ao V2 VTI: 39.6 cm LV V1 VTI: 31.4 cm AV (velocity ratio): 0.79 PA V2 max: 127.2 cm/sec TR max trip: 314.3 cm/sec TR max P.5 mmHg ECHO/Echo Complete Interpretation Summary The estimated ejection fraction is 60 %. Mild (1+) mitral valve insufficiency. Aortic sclerosis, no stenosis. Right ventricular systolic pressure estimated to be 48 mmHg. Stage 2 diastolic dysfunction. Ordering Physician: Rachel Wooten Referring Physician: Leonel Orr Performed By: Roxanne Gonzalez, TIFFANIE, RVT
--- NOTE | 2023-07-09 06:36 | US_ITS ---
EXAM: US ABDOMEN LIMITED, RIGHT UPPER QUADRANT CLINICAL INDICATION: Elevated LFTs TECHNIQUE: Real-time ultrasound of the right upper quadrant with image documentation. COMPARISON: No relevant prior studies available. FINDINGS: LIVER: The liver is enlarged measuring about 22.5 cm in length and is echogenic in texture consistent with fatty infiltration. 2 adjacent cysts in the left lobe of the liver measuring about 1.9 and 1.6 cm. Focal hypoechoic area adjacent to gallbladder fossa most consistent with focal fatty sparing. Fatty infiltration of the liver and hepatomegaly. No intrahepatic biliary ductal dilation. GALLBLADDER: The gallbladder wall measures about 2.2 mm. No shadowing gallstone. No pericholecystic fluid. Negative sonographic Herndon''s sign. COMMON BILE DUCT: Unremarkable as visualized. Normal common bile duct measuring 4.5 mm. PANCREAS: The tail of the pancreas is obscured by bowel gas. RIGHT KIDNEY: The right kidney measures 12.8 cm in length. There is a cyst in the right kidney measuring about 1.8 cm. No evidence of right hydronephrosis. No shadowing calculus. US/Liver IMPRESSION: 1. No evidence of gallstones or gallbladder wall thickening. 2. Focal hypoechoic area adjacent to gallbladder fossa most consistent with focal fatty sparing. 3. Fatty infiltration of the liver and hepatomegaly. 4. Small liver and right renal cysts. Electronically Signed: Yoni Luna MD at 13:32 EST ,
[2023-07-09] MEDS: Insulin Lispro 100 UNIT/ML INSULN.PEN SC ×4 (06:47→21:17)
[2023-07-09 07:10] LABS: CPK Total, Creatine Kinase 66 U/L (39-308)
[2023-07-09 07:14] LABS: Bedside Glucose 212 mg/dL (74-106)
[2023-07-09] MEDS: Albuterol 2.5 MG/3 ML VIAL.NEB. INHALATION ×2 (07:51→13:59)
[2023-07-09 08:33] LABS: Hemoglobin A1c 6.2 % (3.8-5.6)
[2023-07-09] MEDS: predniSONE 10 MG Tablet PO (08:57)
[2023-07-09] MEDS: Glucerna Shake 120 ML LIQUID PO ×2 (08:57→12:22)
[2023-07-09] MEDS: guaiFENesin/D-Methorphan TAB.SR.12H 2 TABLET PO ×2 (08:58→21:16)
[2023-07-09] MEDS: Losartan Potassium 100 MG Tablet PO (08:58)
[2023-07-09] MEDS: Tamsulosin HCl 0.4 MG Capsule 0.400000000000000022 MG PO (08:58)
[2023-07-09] MEDS: Clopidogrel Bisulfate 75 MG Tablet PO (08:58)
[2023-07-09] MEDS: Furosemide 20 MG Tablet 10 MG PO (08:58)
[2023-07-09] MEDS: Sertraline 50 MG Tablet PO (08:59)
[2023-07-09] MEDS: Pantoprazole Sodium 40 MG Tablet PO (08:59)
[2023-07-09] MEDS: NIFEdipine 90 MG Tablet PO (08:59)
[2023-07-09] MEDS: Aspirin E.C. 81 MG Tablet PO (08:59)
[2023-07-09] MEDS: Cholecalciferol (VIT D3) 25 MCG TABLET (1,000 UNITS) PO (08:59)
[2023-07-09] MEDS: Ferrous Gluconate 324 MG Tablet PO ×2 (08:59→16:00)
[2023-07-09] MEDS: traMADol 50 MG Tablet PO ×2 (09:03→21:17)
--- NOTE | 2023-07-09 12:00 | PN_ITS ---
Subjective Subjective Patient seen and examined. He complains of still feeling short of breath. He is coughing. He denies any chest pain or palpitations, dizziness, nausea or vomiting. He is on 4 L of oxygen. Review of systems otherwise negative. He has remained hemodynamically stable. Objective Data Objective Data Vital Signs: Vital Signs Temp Pulse Resp BP Pulse Ox O2 Del Method O2 Flow Rate 99.4 F H 103 H 16 169/70 H 94 Nasal Cannula 4 07/09/23 08:51 07/09/23 08:51 07/09/23 08:51 07/09/23 08:51 07/09/23 08:51 07/09/23 10:23 07/09/23 10:23 FiO2 92 07/08/23 21:14 Oxygen Flow Rate (L/min) 4 Oxygen Delivery Method Nasal Cannula Weight: 227 lb 15.327 oz Body Mass Index (BMI) 34.6 Intake & Output: Intake and Output for Last 24 Hours 07/07/23 07/08/23 07/09/23 23:59 23:59 23:59 Intake Total 1000 / 1000 2240 / 2240 Output Total 1000 / 1000 Balance 1000 / 1000 1240 / 1240 Lab / Micro Data 07/09/23 02:35 07/09/23 02:35 Labs: Laboratory Results - last 24 hr 07/08/23 20:35: WBC 4.6, RBC 3.05 L, Hgb 9.7 L, Hct 30.0 L, MCV 98.4 H, MCH 31.8, MCHC 32.3, RDW Std Deviation 51.2 H, RDW Coeff of Anthony 14.1, Plt Count 153, MPV 9.6, Immature Gran % (Auto) 0.400, Neut % (Auto) 79.9 H, Lymph % (Auto) 11.3 L, Howard % (Auto) 5.6, Eos % (Auto) 2.4, Baso % (Auto) 0.4, Absolute Neuts (auto) 3.7, Absolute Lymphs (auto) 0.52 L, Nucleated RBC % 0, Differential Comment SCANNED, PT 15.0 H, INR 1.2, APTT 28.7, Sodium 132 L, Potassium 3.4 L, Chloride 98, Carbon Dioxide 23.0, Anion Gap 11, BUN 19 H, Creatinine 1.26, Estim Creat Clear Calc 52.02, Est GFR (MDRD) Af Amer 73, Est GFR (MDRD) Non-Af 60, BUN/Creatinine Ratio 15.1, Glucose 213 H, Calcium 9.0, Total Bilirubin 0.70, AST 737 H, ALT 478 H, Alkaline Phosphatase 253 H, Troponin I High Sens 8, Total Protein 6.9, Albumin 3.5, Globulin 3.4, Albumin/Globulin Ratio 1.0 07/08/23 21:30: Lactic Acid 3.9 H* 07/08/23 21:44: Urine Color Yellow, Urine Clarity Sl. Cloudy, Urine pH 6.0, Ur Specific [place] 1.020, Urine Protein 30 H, Urine Glucose (UA) Normal, Urine Ketones Negative, Urine Occult Blood 25 H, Urine Nitrite Negative, Urine Bilirubin Negative, Urine Urobilinogen 1 H, Ur Leukocyte Esterase 25 H, Urine RBC 0-5 SEEN, Urine WBC 0-5 SEEN, Ur Squamous Epith Cells 0-5 SEEN, Amorphous Sediment 1+ PHOS, Urine Bacteria 0 SEEN, Urine Mucus 0 SEEN 07/09/23 02:35: WBC 3.4 L, RBC 2.55 L, Hgb 8.2 L, Hct 25.2 L, MCV 98.8 H, MCH 32.2 H, MCHC 32.5, RDW Std Deviation 51.5 H, RDW Coeff of Anthony 14.3, Plt Count 127 L, MPV 9.1, Immature Gran % (Auto) 0.900, Neut % (Auto) 78.9 H, Lymph % (Auto) 8.6 L, Howard % (Auto) 8.3, Eos % (Auto) 2.7, Baso % (Auto) 0.6, Absolute Neuts (auto) 2.7, Absolute Lymphs (auto) 0.29 L, Nucleated RBC % 0, Differential Comment SCANNED, Diff Path Review November foll, PT 14.6, INR 1.1, Sodium 137, Potassium 3.4 L, Chloride 104, Carbon Dioxide 22.0, Anion Gap 11, BUN 16, Creatinine 1.19, Estim Creat Clear Calc 55.08, Est GFR (MDRD) Af Amer 77, Est GFR (MDRD) Non-Af 64, BUN/Creatinine Ratio 13.4, Glucose 317 H, Hemoglobin A1c 6.2 H, Lactic Acid 3.0 H*, Calcium 7.9 L, Phosphorus 3.1, Magnesium 1.8, Total Bilirubin 0.50, Direct Bilirubin 0.21, AST 401 H, ALT 417 H, Alkaline Phosphatase 249 H, Total Creatine Kinase 66, Total Protein 5.9 L, Albumin 2.9 L, Globulin 3.0, Albumin/Globulin Ratio 1.0, TSH 0.68 07/09/23 06:43: POC Glucose 212 H Micro: Microbiology 07/08/23 21:26 Nasal Secretion SARS-CoV-2 & FLU Antigen (Rapid) - Final Radiography Diagnostic Testing: Radiology Impression Chest X-Ray 07/08/23 22:00 IMPRESSION: Increased interstitial markings at the lung bases unchanged Electronically Signed: Kurtis Marie MD at 23:09 EST Reading Location ID and State: [address] [place] [address] Tel , Service support , Abdomen/Pelvis CT 07/08/23 22:32 IMPRESSION: No acute disease Electronically Signed: Kurtis Marie MD at 0:19 EST Reading Location ID and State: [address] [place] [address] Tel , Service support , Physical Exam Const alert, oriented x3 and no apparent distress Constitutional Narrative: looks weak HEENT normocephalic, head/scalp atraumatic, EAC's normal and moist oral mucous membranes Eyes PERRL Neck no lymphadenopathy and supple Lymph Lymphatic: no lymphadenopathy noted and no lymphedema noted Resp Resp Narrative: mildly diminished breath sounds bibasally, no wheezes or crackles. On 4L of oxygen by nasal canula Cardio regular rate, regular rhythm, S1 normal heart sound, S2 normal heart sound and no murmurs Peripheral Pulses: pulses 2+ throughout GI normal to inspection, nondistended, normoactive bowel sounds, soft to palpation and non-tender Extremity normal capillary refill, no clubbing, cyanosis or edema and no calf tenderness General Extremity: no tenderness to palpation of joints or extremities Skin General Skin Exam: no breakdown Neuro CN's II-XII intact bilaterally, no focal motor deficits, no sensory deficits noted and deep tendon reflexes 2+ bilaterally Motor Exam: strength 5/5 throughout and general weakness Psych thought process normal, cooperative and affect normal Appearance: appropriate Assessment & Plan Assessment/Plan (1) Fever: (2) COPD with acute exacerbation: PLAN: Plan #Hypoxia due to COPD exacerbation * Still feels short of breath. On IV Solu-Medrol. Already on IV azithromycin. Will continue. * Breathing treatments of bronchodilators. Titrate oxygen to maintain saturation above 90%. * both covid and influenza negative. * On Roflumilast. Also on torsemide. * #Dementia: On memantine and donepezil #Type 2 diabetes mellitus: On Lantus. Insulin sliding scale. Accu-Cheks ACHS. Hold metformin in light of elevated liver enzymes #Transaminitis: * AST and ALT were elevated on admission. * have started trending down. * Will monitor for now. Azithromycin, which patient is chronically on, can also cause hepatotoxicity. * Will monitor for now as liver enzymes have started trending down. #Hypertension: On amlodipine and losartan #Lactic acidosis: Lactic acid is down to 3 from 3.9 yesterday. Continue gentle hydration with IV fluids. #Pancytopenia: WBC is 3.4 with hemoglobin of 8.2 and platelets of 127. This seems to be chronic. Will monitor for now. #Hypokalemia: Potassium is 3.4. Will replace and trend. Charges/Coding Visit Charges Inpatient E&M: 17494 Subs Hosp L3
[2023-07-09] MEDS: 0.9% Saline Lock 10 ML Syringe IV (12:22)
[2023-07-09] MEDS: Enoxaparin 40 MG/0.4 ML Syringe SC ×2 (12:22→21:16)
[2023-07-09] MEDS: levoFLOXacin IV 500 MG/100 ML BAG 100 MG IV (15:35)
--- NOTE | 2023-07-09 15:46 | CASEMGMT ---
Social Work Pt has completed a living will and health care POA naming his Aviva Levy and both documents are on file at [facility]. YENNI Alejandra
[2023-07-09] MEDS: Smz/Tmp Ds Tablet 0.5 TABLET PO (16:00)
[2023-07-09 16:13] LABS: Bedside Glucose 294 mg/dL (74-106)
--- NOTE | 2023-07-09 16:30 | CPS ---
Spoke with patient's , she is bringing patient's home PAP machine tomorrow. Patient and are unsure of PAP settings. For tonight he is set up with a 12/7 with 2.5lpm O2 bleed in. Patient placed on at this time and tolerating well.
[2023-07-09] MEDS: Ipratropium/Albuterol Sulfate 3 ML AMPUL.NEB INHALATION (18:59)
[2023-07-09] MEDS: Atorvastatin Calcium 40 MG Tablet PO (21:16)
[2023-07-09] MEDS: Memantine Hydrochloride 5 MG Tablet PO (21:16)
[2023-07-09] MEDS: Magnesium Chloride 64 MG Delay Rel.Tablet 128 MG PO (21:17)
--- OUTSIDE RECORDS SUMMARY | 2023-07-09 21:25 | XMS RPT_ITS | CCD ---
Author Name Unknown Address [address] [place] [address] Organization [facility] Care Team Providers Care Ip Architect Name Role Phone ClaradeweylachelleSaida [facility] Viraj Emery DO, ANTHONY Primary Care Physicia n ZULMA SIMMS, DR SOLIS Primary Care Physician KENNETH SIMMS, RYLEE Nogueira Attending Rai ORR MD, DR SOLIS Primary Care Lauro LEE MD, HENRY Rueda Consulting Rai LARA MD, RYLEE Nogueira Admitting RYLEE Allen MD Attending Unavailable TED BRUCE Referring Unavail car ORR MD, DR SOLIS Primary Care Lauro BOOGIE MD, DR DUNN Attending UnavailVIRAJ Shirley DO Primary Care RYLEE Gutierres MD Attending Unavailable ZULMA SIMMS, DR SOLIS Primary Care Lauro dowd Allergies Allergy Classification Reported Allergen(s) Allergy Type Date of Onset Reaction(s) Facility (4 sources) Doxycycline; Translations: [doxycycline] Drug Allergy Eruption of skin (disorder) [facility] Work Phone: (4 sources) empagliflozin; Translations: [empagliflozin] Drug Allergy Shira infection of genital region (disorder) [facility] Work Phone: (4 sources) Lisinopril; Translations: [lisinopril] Drug Allergy Chronic cough (finding) [facility] Work Phone: Medications Current Medications Medication Drug Class(es) Dates Sig (Normalized) Sig (Original) 8 hr acetaminophen 650 mg extended release oral tablet (2 sources) Start: 10-15-2022 acetaminophen 650 mg oral tablet, extended release Dose : 1,300 mg = 2 tab(s), Oral, q12h, PRN as needed for pain, # 24 tab(s), 0 Refill(s) Start Date: 10/15/22 Status: Ordered albuterol 0.83 mg/ml inhalation solution (4 sources) beta2-Adrenergic Agonist Start: 12-17-2021 take 1 dose by inhalation every six hours as needed albuterol 2.5 mg/3 mL (0.083%) inhalation solution Dose : 2.5 mg = 3 mL, Inhalation, q6h, PRN for wheezing, # 60 EA, 0 Refill(s) Start Date: 12/17/21 Status: Ordered albuterol MDI (90 mcg/inh) CFC free inhalation aerosol (2 sources) Start: 10-15-2022 take 2 puff(s) by inhalation every four hours as needed for wheezing albuterol MDI (90 mcg/inh) CFC free inhalation aerosol 2 puff(s), Inhalation, q4h, PRN as needed for wheezing, # 18 gram(s), 0 Refill(s) Start Date: 10/15/22 Status: Ordered amLODIPine 5 mg oral tablet (2 sources) Dihydropyridine Calcium Channel Vidya Start: 10-15-2022 amLODIPine 5 mg oral tablet Dose : 5 mg = 1 tab(s), Oral, qAM, # 30 tab(s), 0 Refill(s) Start Date: 10/15/22 Status: Ordered atorvastatin 40 mg oral tablet (4 sources) HMG-CoA Reductase Inhibitor Start: 10-15-2022 atorvastatin 40 mg oral tablet Dose : 40 mg = 1 tab(s), Oral, qPM, 0 Refill(s) Start Date: 10/15/22 Status: Ordered Completed/Discontinued Medications Medication Drug Class(es) Dates Sig (Normalized) Sig (Original) apixaban 5 mg oral tablet (4 sources) Factor Xa Inhibitor Start: 12-17-2021 Eliquis 5 mg oral tablet Dose : 5 mg = 1 tab(s), Oral, BID, 0 Refill(s), 105.8 Start Date: 12/17/21 Status: Ordered azithromycin 250 mg oral tablet (2 sources) Macrolide Antimicrobial Start: 10-15-2022 End: 10-18-2022 azithromycin 250 mg oral tablet Dose : 250 mg = 1 tab(s), Oral, qPM, # 4 tab(s), 0 Refill(s), 99.8 Start Date: 10/15/22 Stop Date: 10/18/22 Status: Ordered magnesium oxide 400 mg oral tablet (2 sources) Start: 10-15-2022 End: 10-21-2022 magnesium oxide 400 mg oral tablet Dose : 400 mg = 1 tab(s), Oral, qPM, # 7 tab(s), 0 Refill(s) Start Date: 10/15/22 Stop Date: 10/21/22 Status: Ordered metoprolol tartrate 25 mg oral tablet (7 sources) beta-Adrenergic Vidya Start: 10-23-2022 End: 10-23-2022 metoprolol tartrate 25 mg oral tablet Start: 10/23/22 8:00:00 EDT, Dose = 25 mg, = 1 tab(s), Oral, 0, 10/22/22 10:13:00 EDT Start Date: 10/23/22 Stop Date: 10/23/22 Status: Completed Problems Active Problems Problem Classification Problem Date Documented Da te Episodic/Chronic Cardiac dysrhythmias (2 sources) Persistent atrial fibrillation; Translations: [Other persistent atrial fibrillation] Onset: 3 Chronic Chronic obstructive pulmonary disease and bronchiectasis (6 sources) Pulmonary emphysema; Translations: [Chronic obstructive lung disease] Onset: 3 12-17-2021 Chronic Congestive heart failure; nonhypertensive (2 sources) Heart failure; Translations: [Heart failure, unspecified] Onset: 3 Chronic Coronary atherosclerosis and other heart disease (2 sources) Coronary arteriosclerosis 07-17-2022 Chronic Diabetes mellitus without complication (1 source) Type 2 diabetes mellitus without complication; Translations: [Type 2 diabetes mellitus without complications] Onset: 3 Chronic Essential hypertension (3 sources) Hypertensive disorder; Translations: [Essential hypertension] Onset: 3 12-17-2021 Chronic Gastrointestinal hemorrhage (1 source) Gastrointestinal hemorrhage; Translations: [Gastrointestinal hemorrhage, unspecified] Onset: 3 Episodic Other circulatory disease (1 source) H/O: artificial organ/tissue; Translations: [Presence of other cardiac implants and grafts] Onset: 3 Chronic Residual codes; unclassified (1 source) Sleep apnea; Translations: [Sleep apnea, unspecified] Onset: 3 Chronic Residual codes; unclassified (4 sources) Amnesia 12-17-2021 Episodic Residual codes; unclassified (1 source) Device in situ 10-23-2022 Episodic Unclassified (1 source) Unknown / UNK(Unknown) Onset: 7 Unclassified (2 sources) Other persistent atrial fibrillation; Translations: [Other persistent atrial fibrillation] Onset: 3 Past or Other Problems Problem Classification Problem Date Documented Da te Episodic/Chronic Deficiency and other anemia (2 sources) Iron deficiency anemia, unspecified; Translations: [Iron deficiency anemia, unspecified] Onset: 02-11-2022 Episodic Unclassified (1 source) AAA SCREENING~ Onset: 05-08-2017 Results Test Name Value Interpretation Reference Range Facil ity Vital Signs Date Time Vital Sign Value Performing Clinician Kamlai lity 10-23-2022 08:31-0400 Heart rate 58 /min RYLEE LARA MD [facility] 10-23-2022 08:29-0400 Heart rate 55 /min RYLEE LARA MD [facility] 10-23-2022 07:32-0400 Body temperature 97.7 [degF] RYLEE LARA MD [facility] 10-23-2022 07:32-0400 Diastolic Blood Pressure Non-Invasive 61 1 RYLEE LARA MD [facility] 10-23-2022 07:32-0400 Heart rate 82 /min RYLEE LARA MD [facility] 10-23-2022 07:32-0400 Mean blood pressure 92 mm[Hg] RYLEE LARA MD [address] [place] [address] 10-23-2022 07:32-0400 Reason For Taking VItal Signs RYLEE LARA MD [address] [place] [address] 10-23-2022 07:32-0400 Respiratory rate 20 /min RYLEE LARA MD [address] [place] [address] 10-23-2022 07:32-0400 Systolic Blood Pressure Non-Invasive 165 1 RYLEE LARA MD [address] [place] [address] 10-23-2022 07:24-0400 Heart rate 51 /min RYLEE LARA MD [address] [place] [address] 10-23-2022 07:24-0400 Respiratory rate 20 /min RYLEE LARA MD [address] [place] [address] 10-23-2022 04:43-0400 Body temperature 97.88 [degF] RYLEE LARA MD [address] [place] [address] 10-23-2022 04:43-0400 Diastolic Blood Pressure Non-Invasive 67 1 RYLEE LARA MD [address] [place] [address] 10-23-2022 04:43-0400 Heart rate 62 /min RYLEE LARA MD [address] [place] [address] 10-23-2022 04:43-0400 Mean blood pressure 96 mm[Hg] RYLEE LARA MD [address] [place] [address] 10-23-2022 04:43-0400 Respiratory rate 16 /min RYLEE LARA MD [address] [place] [address] 10-23-2022 04:43-0400 Systolic Blood Pressure Non-Invasive 167 1 RYLEE LARA MD [address] [place] [address] 10-22-2022 23:40-0400 Body temperature 97.88 [degF] RYLEE LARA MD [address] [place] [address] 10-22-2022 23:40-0400 Diastolic Blood Pressure Non-Invasive 72 1 RYLEE LARA MD [address] [place] [address] 10-22-2022 23:40-0400 Mean blood pressure 101 mm[Hg] RYLEE LARA MD [address] [place] [address] 10-22-2022 23:40-0400 Systolic Blood Pressure Non-Invasive 167 1 RYLEE LARA MD [address] [place] [address] 10-22-2022 19:30-0400 Reason For Taking VItal Signs RYLEE LARA MD [address] [place] [address] 10-22-2022 18:59-0400 Heart rate 47 /min RYLEE LARA MD [address] [place] [address] 10-22-2022 18:51-0400 Reason For Taking VItal Signs RYLEE LARA MD [address] [place] [address] 10-22-2022 14:47-0400 Heart rate 45 /min RYLEE LARA MD [address] [place] [address] 10-22-2022 13:09-0400 Diastolic blood pressure 57 mm[Hg] RYLEE LARA MD [address] [place] [address] 10-22-2022 13:09-0400 Systolic blood pressure 127 mm[Hg] RYLEE LARA MD [address] [place] [address] 10-22-2022 12:40-0400 Diastolic blood pressure 58 mm[Hg] RYLEE LARA MD [address] [place] [address] 10-22-2022 12:40-0400 Systolic blood pressure 137 mm[Hg] RYLEE LARA MD [address] [place] [address] 10-22-2022 12:04-0400 Diastolic blood pressure 52 mm[Hg] RYLEE LARA MD [address] [place] [address] 10-22-2022 12:04-0400 Mean blood pressure 78 mm[Hg] RYLEE LRAA MD [address] [place] [address] 10-22-2022 12:04-0400 Systolic blood pressure 132 mm[Hg] YRLEE LARA MD [address] [place] [address] 10-22-2022 11:35-0400 Mean blood pressure 85 mm[Hg] RYLEE LARA MD [address] [place] [address] 10-22-2022 11:05-0400 Mean blood pressure 85 mm[Hg] RYLEE LARA MD [address] [place] [address] 10-22-2022 10:15-0400 Respiratory Rate - Anes 0 br/min RYLEE LARA MD [address] [place] [address] 10-22-2022 10:10-0400 Respiratory Rate - Anes 0 br/min RYLEE LARA MD [address] [place] [address] 10-22-2022 10:05-0400 Respiratory Rate - Anes 0 br/min RYLEE LARA MD [address] [place] [address] 10-22-2022 09:50-0400 Body temperature 93.87 [degF] RYLEE LARA MD [address] [place] [address] 10-22-2022 09:45-0400 Body temperature 94.24 [degF] RYLEE LARA MD [address] [place] [address] 10-22-2022 09:40-0400 Body temperature 94.17 [degF] RYLEE LARA MD [address] [place] [address] 10-22-2022 05:46-0400 Blood Pressure Cuff Size RYLEE LARA MD [address] [place] [address] 10-22-2022 05:46-0400 Blood Pressure Location RYLEE LARA MD [address] [place] [address] 10-22-2022 05:46-0400 Blood Pressure Method RYLEE LARA MD [address] [place] [address] 10-22-2022 05:46-0400 Body height 170 cm RYLEE LARA MD [address] [place] [address] 04-11-2023 05:46-0400 Body weight 99.3 kg RYLEE LARA MD [address] [place] [address] 10-22-2022 05:46-0400 Body weight 34.36 kg/m2 RYLEE LARA MD [address] [place] [address] 10-15-2022 08:16-0400 Blood Pressure Cuff Size RYLEE LARA MD [address] [place] [address] 10-15-2022 08:16-0400 Blood Pressure Location RYLEE LARA MD [address] [place] [address] 10-15-2022 08:16-0400 Blood Pressure Method RYLEE LARA MD [address] [place] [address] 10-15-2022 08:16-0400 Body height 169 cm RYLEE LARA MD [address] [place] [address] 10-15-2022 08:16-0400 Body temperature 97.88 [degF] RYLEE LARA MD [address] [place] [address] 10-15-2022 08:16-0400 Body weight 99.6 kg RYLEE LARA MD [address] [place] [address] 10-15-2022 08:16-0400 Diastolic Blood Pressure Non-Invasive 70 1 RYLEE LARA MD [address] [place] [address] 10-15-2022 08:16-0400 Heart rate 64 /min RYLEE LARA MD [address] [place] [address] 10-15-2022 08:16-0400 Systolic Blood Pressure Non-Invasive 121 1 RYLEE LARA MD [address] [place] [address] 02-11-2022 10:16-0400 Diastolic Blood Pressure NBP [address] SHAUN BOOGIE MD [facility] 02-11-2022 10:16-0400 Heart rate 61 /min DR SHAUN BOOGIE MD [facility] 02-11-2022 10:16-0400 Respiratory rate 17 /min DR SHAUN BOOGIE MD [facility] 02-11-2022 10:16-0400 Systolic Blood Pressure NBP [address] SHAUN BOOGIE MD [facility] 02-11-2022 10:10-0400 Diastolic Blood Pressure NBP [address] SHAUN BOOGIE MD [facility] 02-11-2022 10:10-0400 Heart rate 63 /min DR SHAUN BOOGIE MD [facility] 02-11-2022 10:10-0400 Respiratory rate 14 /min DR SHAUN BOOGIE MD [facility] 02-11-2022 10:10-0400 Systolic Blood Pressure NBP [address] SHAUN BOOGIE MD [facility] 02-11-2022 10:02-0400 Diastolic Blood Pressure NBP [address] SHAUN BOOGIE MD [facility] 02-11-2022 10:02-0400 Heart rate 63 /min DR SHAUN BOOGIE MD [facility] 02-11-2022 10:02-0400 Respiratory rate 17 /min DR SHAUN BOOGIE MD [facility] 02-11-2022 10:02-0400 Systolic Blood Pressure NBP [address] SHAUN BOOGIE MD [facility] 02-11-2022 08:36-0400 Body height [address] SHAUN BOOGIE MD [facility] 02-11-2022 08:36-0400 Body temperature 97.52 [degF] DR SHAUN BOOGIE MD [facility] 02-11-2022 08:36-0400 Body weight [address] SHAUN BOOGIE MD [facility] 02-11-2022 08:36-0400 diastolic 70 mm[Hg] DR SHAUN BOOGIE MD [facility] 02-11-2022 08:36-0400 Heart rate 52 /min DR SHAUN BOOGIE MD [facility] 02-11-2022 08:36-0400 systolic 153 mm[Hg] DR SHAUN BOOGIE MD [facility] 12-17-2021 09:02-0400 Diastolic Blood Pressure NBP [address] SHAUN BOOGIE MD [facility] 12-17-2021 09:02-0400 Heart rate 56 /min DR SHAUN BOOGIE MD [facility] 12-17-2021 09:02-0400 Respiratory rate 15 /min DR SHAUN BOOGIE MD [facility] 12-17-2021 09:02-0400 Systolic Blood Pressure NBP [address] SHAUN BOOGIE MD [facility] 12-17-2021 08:46-0400 Diastolic Blood Pressure NBP [address] SHAUN BOOGIE MD [facility] 12-17-2021 08:46-0400 Heart rate 59 /min DR SHAUN BOOGIE MD [facility] 12-17-2021 08:46-0400 Respiratory rate 14 /min DR SHAUN BOOGIE MD [facility] 12-17-2021 08:46-0400 Systolic Blood Pressure NBP [address] SHAUN BOOGIE MD [facility] 12-17-2021 08:35-0400 Diastolic Blood Pressure NBP [address] SHAUN BOOGIE MD [facility] 12-17-2021 08:35-0400 Heart rate 57 /min DR SHAUN BOOGIE MD [facility] 12-17-2021 08:35-0400 Respiratory rate 16 /min DR SHAUN BOOGIE MD [facility] 12-17-2021 08:35-0400 Systolic Blood Pressure NBP [address] SHAUN BOOGIE MD [facility] 12-17-2021 07:27-0400 Body height [address] SHAUN BOOGIE MD [facility] 12-17-2021 07:27-0400 Body temperature 96.62 [degF] DR SHAUN BOOGIE MD [facility] 12-17-2021 07:27-0400 Body weight [address] SHAUN BOOGIE MD [facility] 12-17-2021 07:27-0400 Body weight 35.29 kg/m2 DR SHAUN BOOGIE MD [facility] 12-17-2021 07:27-0400 Diastolic blood pressure 56 mm[Hg] DR SHAUN BOOGIE MD [facility] 12-17-2021 07:27-0400 Heart rate 56 /min DR SHAUN BOOGIE MD [facility] 12-17-2021 07:27-0400 Systolic blood pressure 103 mm[Hg] DR SHAUN BOOGIE MD [facility] Encounters Encounter Date Encounter Type Care Provider Facility Start: 11-28-2022 End: 11-28-2022 ambulatory RYLEE LARA MD Facility:A Start: 10-22-2022 End: 10-23-2022 Evaluation and management of inpatient RYLEE LARA MD Facility:A Start: 10-22-2022 End: 10-23-2022 Evaluation and management of inpatient RYLEE LARA MD [facility] Start: 10-15-2022 End: 10-16-2022 ambulatory RYLEE LARA MD Facility:A Start: 10-15-2022 End: 10-15-2022 Admission to establishment RYLEE LARA MD [facility] Start: 02-11-2022 End: 02-12-[address] SHAUN BOOGIE MD Facility:B Start: 02-11-2022 End: 02-11-[address] SHAUN BOOGIE MD [facility] Start: 12-17-2021 End: 12-17-[address] SHAUN BOOGIE MD [facility] Start: 05-08-2017 Tobin Cintron Count includes the [facility] Facility:[facility] Procedures Date Procedure Procedure Detail Performing Clinician Start: 02-11-[address] SHAUN BOOGIE MD Start: 06-02-2021 CT angiography of ch est with contrast RYLEE LARA MD Immunizations Immunization Date Immunization Notes Care Provider Fa cility 04-13-2022 influenza virus vacc ine, unspecified formulation RYLEE LARA MD [facility] 04-13-2022 SARS-CoV-2 mRNA (tozinameran) vaccine RYLEE LARA MD [facility] 10-31-2021 SARS-CoV-2 mRNA (echcomukldm-vhmh-vbqlium ) vaccine RYLEE LARA MD [facility] 05-10-2021 influenza virus vacc ine, unspecified formulation RYLEE LARA MD [facility] 11-30-2020 SARS-CoV-2 (COVID-19 ) mRNA-1273 vaccine RYLEE LARA MD [facility] 11-02-2020 SARS-CoV-2 (COVID-19 ) mRNA-1273 vaccine RYLEE LARA MD [facility] 05-03-2020 influenza virus vacc ine, unspecified formulation RYLEE LARA MD [facility] 04-09-2018 influenza virus vacc ine, unspecified formulation RYLEE LARA MD [facility] 04-10-2017 influenza virus vacc ine, unspecified formulation RYLEE LARA MD [facility] 10-10-2016 zoster vaccine, live RYLEE ZIMMERMAN MD [facility] 05-06-2016 influenza virus vacc ine, unspecified formulation RYLEE LARA MD [facility] 04-12-2016 pneumococcal polysaccharide vaccine, 23 valent RYLEE LARA MD [facility] 04-12-2016 tetanus toxoid, redu andrea diphtheria toxoid, and acellular pertussis vaccine, adsorbed RYLEE LARA MD [facility] 05-04-2015 influenza virus vacc ine, unspecified formulation RYLEE LARA MD [facility] 02-08-2015 pneumococcal conjuga te vaccine, 13 valent RYLEE LARA MD [facility] 04-21-2014 influenza virus vacc ine, unspecified formulation RYLEE LARA MD [facility] Payers Date Payer Category Payer Medicare [id number] 2022 Private Health Insurance [id number] 1950 Unknown [id number] 1950 Unknown [id number] [id number] 1950 Unknown [id number] 1950 Unknown [id number] [id number] Unknown [id number] Social History Date Type Detail Facility Start: 12-17-2021 Tobacco smoking status Ex-smoker (fi nding) [facility] Sex Assigned At Male [facility] Functional Status Date Assessment Result Facility 10-23-2022 Functional Status Single level home [facility] 10-23-2022 Functional Status [facility] 10-22-2022 Functional Status [facility] 10-22-2022 Functional Status [facility] 10-22-2022 Functional Status 100 [facility] 10-22-2022 Functional Status Lunch Percent 100 [facility] 10-22-2022 Functional Status Hospital bed [facility] 10-22-2022 Functional Status Maintained [facility] 10-15-2022 Functional Status Sensory Defici ts Hearing deficit, left ear, Hearing deficit, right ear [facility] 02-11-2022 Functional Status Precautions maintained [facility] 02-11-2022 Functional Status Maintained, Less than 8 hours [facility] 12-17-2021 Functional Status Patient Identi fied Identification band, Verbal [facility] 12-17-2021 Functional Status Maintained, More than 8 hours [facility] Mental Status Date Assessment Result Facility 10-23-2022 Mental Status Orientation Oriented x 4 [facility] 10-23-2022 Mental Status [facility] 10-22-2022 Mental Status [facility] 02-11-2022 Mental Status Oriented x 4, Forgetful [facility] 12-17-2021 Mental Status Oriented x 4 [facility] Clinical Notes 12-17-2021 to 10-23-2022 Note Date & Type Note Facility 10-23-2022 Hospital Discharg e instructions Patient Education 10/23/2022 09:57:52 Left Atrial Appendage Closure Device Implantation Left Atrial Appendage Closure Device Implantation Left atrial appendage (MAGDALENA) closure device implantation is a procedure that is done to place a small device in the MAGDALENA of the heart. The left atrium is one of the heart's two upper chambers, and the MAGDALENA is a small sac in the wall of the left atrium. The device closes the MAGDALENA. This procedure can help prevent a stroke caused by atrial fibrillation. Atrial fibrillation is a type of irregular or rapid heartbeat (arrhythmia). When the heart does not beat normally and the heartbeat is irregular, there is an increased risk of blood clots and stroke. A blood clot can form in the MAGDALENA. Tell a health care provider about: Any allergies you have. All medicines you are taking, including vitamins, herbs, eye drops, creams, and jnnv-fjt-qtxdlnv medicines. Any problems you or family members have had with anesthetic medicines. Any blood disorders you have. Any surgeries you have had. Any medical conditions you have. Whether you are or may be . What are the risks? Generally, this is a safe procedure. However, problems may occur, including: Infection. Bleeding. Allergic reactions to medicines or dyes. Damage to nearby structures or organs. Heart attack. Stroke. Blood clots. Changes in heart rhythm. Device failure. What happens before the procedure? Medicines Ask your health care provider about: ?Changing or stopping your regular medicines. This is especially important if you are taking diabetes medicines or blood thinners. ?Taking medicines such as aspirin and ibuprofen. These medicines can thin your blood. Do not take these medicines unless your health care provider tells you to take them. ?Taking yuxc-sjy-ailmpda medicines, vitamins, herbs, and supplements. You may be given antibiotic medicine to help prevent an infection. Staying hydrated Follow instructions from your health care provider about hydration, which may include: Up to 2 hours before the procedure you may continue to drink clear liquids, such as water, clear fruit juice, black coffee, and plain tea. Eating and drinking restrictions Follow instructions from your health care provider about eating and drinking, which may include: 8 hours before the procedure stop eating heavy meals or foods such as meat, fried foods, or fatty foods. 6 hours before the procedure stop eating light meals or foods, such as toast or cereal. 6 hours before the procedure stop drinking milk or drinks that contain milk. 2 hours before the procedure stop drinking clear liquids. General instructions Do not use any products that contain nicotine or tobacco, such as cigarettes and e-cigarettes. If you need help quitting, ask your health care provider. You will have blood tests and a physical exam. You will have a test called an electrocardiogram (ECG) to check your heart's electrical patterns and rhythms. You may be asked to shower with a germ-killing soap. Plan to have someone take you home from the hospital or clinic. Plan to have a responsible adult care for you for at least 24 hours after you leave the hospital or clinic. This is important. What happens during the procedure? To lower your risk of infection: ?Your health care team will wash or sanitize their hands. ?Hair may be removed from the surgical area. ?Your skin will be washed with soap. An IV will be inserted into one of your veins. You will be given one or more of the following: ?A medicine to help you relax (sedative). ?A medicine to make you fall asleep (general anesthetic). A small incision will be made in your groin area. A small wire will be put through the incision and into a blood vessel. X-ray dye may be injected so X-rays can be used to guide the wire through the blood vessel. A long, thin tube (catheter) will be put over the small wire and moved up through the blood vessel to reach your heart. The closure device will be moved through the catheter until it reaches your heart. A small hole will be made in the septum (transseptal puncture). The septum is a thin tissue that separates the upper two chambers of the heart. The device will be placed so that it closes the MAGDALENA. X-rays will be done to make sure the device is in the right place. The catheter and wire will be removed. The closure device will remain in your heart. A bandage (dressing) will be placed over the site where the catheter was inserted. Pressure will be applied to prevent any bleeding. The procedure may vary among health care providers and hospitals. What happens after the procedure? Your blood pressure, heart rate, breathing rate, and blood oxygen level will be monitored until the medicines you were given have worn off. You may have to wear compression stockings. These stockings help to prevent blood clots and reduce swelling in your legs. Do not drive for 24 hours if you were given a sedative. Ask your health care provider when it is safe for you to drive. You may be given pain medicine. You may need to drink more fluids to wash (flush) the X-ray dye out of your body. Take yune-rke-ifmdnun and prescription medicines only as told by your health care provider. This is especially important if you were given blood thinners. Summary Left atrial appendage (MAGDALENA) closure device implantation is a surgery that is done to put a small device in one of the heart's upper chambers (left atrium). The device is placed in a small sac in the wall of the left atrium (left atrial appendage). The device closes the MAGDALENA to prevent strokes and other problems. Follow instructions from your health care provider before and after the procedure. This information is not intended to replace advice given to you by your health care provider. Make sure you discuss any questions you have with your health care provider. Document Released: 11/11/2017 Document Revised: 06/12/2018 Document Reviewed: 11/11/2017 [employer] Patient Education 2020 [employer]. 10/23/2022 09:57:48 Left Atrial Appendage Closure Device Implantation, Care After Left Atrial Appendage Closure Device Implantation, Care After This sheet gives you information about how to care for yourself after your procedure. Your health care provider may also give you more specific instructions. If you have problems or questions, contact your health care provider. What can I expect after the procedure? After the procedure, it is common to have: Some pain, swelling, soreness, and bruising around the site where a long, thin tube (catheter) was inserted in your groin (catheter insertion site). Tiredness. Follow these instructions at home: Catheter insertion area care Follow instructions from your health care provider about how to take care of the catheter insertion site. Make sure you: ?Wash your hands with soap and water before you change your bandage (dressing). If soap and water are not available, use hand director strategic planning. ?Change your dressing as told by your health care provider. ?Leave stitches (sutures), skin glue, or adhesive strips in place. These skin closures may need to stay in place for 2 weeks or longer. If adhesive strip edges start to loosen and curl up, you may trim the loose edges. Do not remove adhesive strips completely unless your health care provider tells you to do that. Skin glue and adhesive strips usually fall off on their own. Check your catheter insertion area every day for signs of infection. Check for: ?Redness, swelling, or pain. ?Fluid or blood. ?Warmth. ?Pus or a bad smell. ?A lump or bump that may develop. Medicines Take izlz-fog-cukvwok and prescription medicines only as told by your health care provider. If you were prescribed antibiotic medicine, take it as told by your health care provider. Do not stop taking the antibiotic even if you start to feel better. You may need to take medicines to prevent blood clots. Activity Do not lift anything that is heavier than 10 lb (4.5 kg), or the limit that you are told, until your health care provider says that it is safe. Avoid activity that requires a lot of effort, including exercise and sports, as told by your health care provider. Ask your health care provider what activities are safe for you. Avoid sexual activity until your health care provider says that it is safe. Do not drive for 24 hours if you were given a medicine to help you relax (sedative) during the procedure. Ask your health care provider when it is safe for you to drive. Lifestyle Limit alcohol intake to no more than 1 drink a day for non women and 2 drinks a day for men. One drink equals 12 oz of beer, 5 oz of wine, or 1 oz of hard liquor. Do not use any products that contain nicotine or tobacco, such as cigarettes and e-cigarettes. If you need help quitting, ask your health care provider. General instructions Do not take baths, swim, shower, or use a hot tub until your health care provider approves. Follow instructions from your health care provider about eating or drinking restrictions. You may need to follow a diet that is low in salt (sodium) and low in fat to prevent heart problems. Keep all follow-up visits as told by your health care provider. This is important. Contact a health care provider if: You have severe pain that does not get better with medicine. You have redness, swelling, or pain around your catheter insertion site. You have fluid or blood coming from your catheter insertion area. Your catheter insertion site feels warm to the touch. You have pus or a bad smell coming from your catheter insertion area. You have a fever. You have nausea and vomiting. You develop a lump or bump in your catheter insertion area. Get help right away if: The catheter insertion area is bleeding, and the bleeding does not stop when you apply and hold steady pressure on the area. You have chest pain. You have trouble breathing. You have dizziness. You faint. You have any symptoms of a stroke. BE FAST is an easy way to remember the main warning signs of a stroke: ?B - Balance. Signs are dizziness, sudden trouble walking, or loss of balance. ?E - Eyes. Signs are trouble seeing or a sudden change in vision. ?F - Face. Signs are sudden weakness or numbness of the face, or the face or eyelid drooping on one side. ?A - Arms. Signs are weakness or numbness in an arm. This happens suddenly and usually on one side of the body. ?S - Speech. Signs are sudden trouble speaking, slurred speech, or trouble understanding what people say. ?T - Time. Time to call emergency services. Write down what time symptoms started. You have other signs of a stroke, such as: ?A sudden, severe headache with no known cause. ?Nausea or vomiting. ?Seizure. These symptoms may represent a serious problem that is an emergency. Do not wait to see if the symptoms will go away. Get medical help right away. Call your local emergency services (911 in the [place] Do not drive yourself to the hospital. Summary It is common to have some pain and soreness after the procedure. Check your catheter insertion area every day for signs of infection, such as redness, swelling, or pain. Do not take baths, swim, shower, or use a hot tub until your health care provider approves. This information is not intended to replace advice given to you by your health care provider. Make sure you discuss any questions you have with your health care provider. Document Released: 10/31/2017 Document Revised: 08/23/2019 Document Reviewed: 10/31/2017 [employer] Patient Education 2020 [employer] Follow Up Care 10/03/2022 10:08:38 With:TED SKY DENTAL ASSISTANT-DATABASE DEVELOPER Address: [address] [place] [address] [id number] [facility] [address] [phone] When:11/15/2022 13:00:00 Comments:HOSPITAL FOLLOW-UP FROM [facility] 10-23-2022 Note Discharge Instructions Thank you for allowing [facility] to assist you with your healthcare needs. The following is important discharge information regarding your hospital visit. Your Care Team IRMA ORR MD Your Diagnosis Presence of Watchman left atrial appendage closure device Afib HTN (hypertension) Sleep apnea with use of nocturnal bilevel positive airway pressure (BPAP) CHF (congestive heart failure) COPD (chronic obstructive pulmonary disease) DM2 (diabetes mellitus, type 2) GIB (gastrointestinal bleeding) What to do next Instructions From Your Doctor - No heavy lifting, pushing, or pulling more than 10 lb for 3-4 days - May shower starting tomorrow. No tub bathing/swimming pool/hot tub until groin site completely healed - Wash groin sites at least once a day with new washcloth and antibacterial soap for 1 week or until healed - Do not apply any cream, powder, or lotion to area until completely healed - If present, may remove dressings on groin sites while in shower tomorrow. May leave open to air or cover with loose gauze dressing - Medication changes: NONE - Continue your Eliquis - Call the office with any questions or concerns [phone] (office) or Ted (nurse practitioner) [phone] Scheduled Follow-Up Appointments Appointment Type When With Where Contact InformationCV OV Structural Heart 11/15/2022 01:00 PM EDT TED SKY [facility] Follow Up Appointments Follow Up with TED SKY When 11/15/2022 01:00 PM EDT Why: [facility] Where: [address] [facility] [place] [place] [address]- [phone] The Following Activity and Diet Have Been Ordered for You Discharge Activity - Ordered -- Lifting Restricted less than 10 pounds, No pushing, pulling, or lifting more than 10 lb for 3-4 days [address]riving restricted for 2 days. May shower starting tomorrow., 10/23/22 9:44:00 EDT Discharge Diet - Ordered -- Type of Diet: Regular Diet, No changes were made to your diet during your hospital stay. Please resume your pre hospitalization diet on discharge., 10/23/22 9:44:00 EDT The Following Equipment Has Been Ordered for You Discharge Home Equipment Discharge Wound Care - Ordered -- Keep groin site(s) clean and dry until healed. Wash at least once a day with antibacterial soap., 10/23/22 9:44:00 EDT The Following Treatments Have Been Ordered for You Discharge Labs No qualifying data available. Discharge Radiology No qualifying data available. Other Therapies No qualifying data available. Post Acute Orders No qualifying data available. Someone Will Contact You Regarding These Home Health Referrals No home referrals have been ordered for you. No one will call you. Allergies Jardiance (Shira infection of genital region) doxycycline (Rash) lisinopril (Chronic cough) Medications Please ask your primary doctor or pharmacist before taking any other medication not listed, including over the counter drugs, herbal medications, vitamins and or supplements as they may interact with your home medications. What How Much When Instructions Last Dose Unchanged acetaminophen (acetaminophen 650 mg oral tablet, extended release) 2 tab(s) by mouth Every 12 hours as needed for as needed for pain Unchanged albuterol (albuterol MDI (90 mcg/ inh) CFC free inhalation aerosol) 2 puff(s) by inhalation Every 4 hours as needed for as needed for wheezing Unchanged albuterol (albuterol 2.5 mg/ 3 mL (0.083%) inhalation solution) 3 Milliliter by inhalation Every 6 hours as needed for for wheezing Unchanged amLODIPine (amLODIPine 5 mg oral tablet) 1 tab(s) by mouth Once a day (in the morning) Unchanged apixaban (Eliquis 5 mg oral tablet) 1 tab(s) by mouth Two (2) times a day Unchanged ascorbic acid (Vitamin C 500 mg oral tablet) 1 tab(s) by mouth Once a day Unchanged atorvastatin (atorvastatin 40 mg oral tablet) 1 tab(s) by mouth Once a day (in the evening) Unchanged azithromycin (azithromycin 250 mg oral tablet) 1 tab(s) by mouth Once a day (in the evening) Duration: 4 Days Unchanged cholecalciferol (Vitamin D3 25 mcg (1000 intl units) oral capsule) 1 cap by mouth Once a day Unchanged donepezil (donepezil 5 mg oral tablet) 1 tab(s) by mouth Daily at bedtime Unchanged ferrous gluconate (ferrous gluconate 324 mg (38 mg elemental iron) oral tablet) 1 tab(s) by mouth Once a day (in the evening) Unchanged fluticasone/ umeclidinium/ vilanterol (Trelegy Ellipta 100 mcg-62.5 mcg-25 mcg/ inh inhalation powder) 1 puff(s) by inhalation Once a day at the same time every day. Following administration, rinse mouth with water after use (do not swallow). Unchanged gabapentin (gabapentin 300 mg oral capsule) 1 cap by mouth Three (3) times a day Unchanged guaiFENesin (guaiFENesin 1200 mg oral tablet, extended release) 1 tab(s) by mouth Every 12 hours Unchanged magnesium oxide (magnesium oxide 400 mg oral tablet) 1 tab(s) by mouth Once a day (in the evening) Duration: 7 Days Unchanged metFORMIN (metFORMIN 1000 mg oral tablet (IR)) 1 tab(s) by mouth Two (2) times a day Unchanged metoprolol (metoprolol tartrate 25 mg oral tablet) 1 tab(s) by mouth Two (2) times a day Duration: 90 Days Take with food Unchanged mirtazapine (mirtazapine 15 mg oral tablet) 1 tab(s) by mouth Daily at bedtime Unchanged montelukast (montelukast 10 mg oral tablet) 1 tab(s) by mouth Once a day (in the evening) Unchanged NIFEdipine (NIFEdipine 90 mg oral tablet, extended release) 1 tab(s) by mouth Once a day (in the morning) Unchanged omega-3 polyunsaturated fatty acids (omega-3 fish oil 1000 mg oral capsule) 1 cap by mouth Two (2) times a day Unchanged pantoprazole (pantoprazole 40 mg oral enteric coated tablet) 1 tab(s) by mouth Once a day (in the morning) Unchanged roflumilast (roflumilast 500 mcg oral tablet) 1 tab(s) by mouth Once a day (in the evening) Unchanged sertraline (sertraline 50 mg oral tablet) 1 tab(s) by mouth Once a day (in the morning) Unchanged tamsulosin (tamsulosin 0.4 mg oral capsule) 1 cap by mouth Once a day (in the evening) Duration: 90 Days Unchanged torsemide (torsemide 5 mg oral tablet) 1 tab(s) by mouth Once a day (in the morning) Unchanged traMADol (traMADol 50 mg oral tablet) 1 tab(s) by mouth Every 12 hours as needed for for pain Unchanged valsartan (valsartan 320 mg oral tablet) 1 tab(s) by mouth Once a day (in the morning) What How Much When Comments Stop Taking predniSONE (prednisone 10mg tab (TAPER)) Taper [id number] x 1 day by mouth Once a day (in the morning) Duration: 7 Days Please take this list to your next doctor s visit. Bring all medications you take, including over the counter medications, herbals and other supplements with you to your doctor s visit. Patients and families are reminded to discard old lists and to update any records with all medication providers or retail pharmacies. Education Materials Left Atrial Appendage Closure Device Implantation Left atrial appendage (MAGDALENA) closure device implantation is a procedure that is done to place a small device in the MAGDALENA of the heart. The left atrium is one of the heart's two upper chambers, and the MAGDALENA is a small sac in the wall of the left atrium. The device closes the MAGDALENA. This procedure can help prevent a stroke caused by atrial fibrillation. Atrial fibrillation is a type of irregular or rapid heartbeat (arrhythmia). When the heart does not beat normally and the heartbeat is irregular, there is an increased risk of blood clots and stroke. A blood clot can form in the MAGDALENA. Tell a health care provider about: Any allergies you have. All medicines you are taking, including vitamins, herbs, eye drops, creams, and uptf-zwj-qoedxlo medicines. Any problems you or family members have had with anesthetic medicines. Any blood disorders you have. Any surgeries you have had. Any medical conditions you have. Whether you are or may be . What are the risks? Generally, this is a safe procedure. However, problems may occur, including: Infection. Bleeding. Allergic reactions to medicines or dyes. Damage to nearby structures or organs. Heart attack. Stroke. Blood clots. Changes in heart rhythm. Device failure. What happens before the procedure? Medicines Ask your health care provider about: ? Changing or stopping your regular medicines. This is especially important if you are taking diabetes medicines or blood thinners. ? Taking medicines such as aspirin and ibuprofen. These medicines can thin your blood. Do not take these medicines unless your health care provider tells you to take them. ? Taking eeov-die-vibvqav medicines, vitamins, herbs, and supplements. You may be given antibiotic medicine to help prevent an infection. Staying hydrated Follow instructions from your health care provider about hydration, which may include: Up to 2 hours before the procedure you may continue to drink clear liquids, such as water, clear fruit juice, black coffee, and plain tea. Eating and drinking restrictions Follow instructions from your health care provider about eating and drinking, which may include: 8 hours before the procedure stop eating heavy meals or foods such as meat, fried foods, or fatty foods. 6 hours before the procedure stop eating light meals or foods, such as toast or cereal. 6 hours before the procedure stop drinking milk or drinks that contain milk. 2 hours before the procedure stop drinking clear liquids. General instructions Do not use any products that contain nicotine or tobacco, such as cigarettes and e-cigarettes. If you need help quitting, ask your health care provider. You will have blood tests and a physical exam. You will have a test called an electrocardiogram (ECG) to check your heart's electrical patterns and rhythms. You may be asked to shower with a germ-killing soap. Plan to have someone take you home from the hospital or clinic. Plan to have a responsible adult care for you for at least 24 hours after you leave the hospital or clinic. This is important. What happens during the procedure? To lower your risk of infection: ? Your health care team will wash or sanitize their hands. ? Hair may be removed from the surgical area. ? Your skin will be washed with soap. An IV will be inserted into one of your veins. You will be given one or more of the following: ? A medicine to help you relax (sedative). ? A medicine to make you fall asleep (general anesthetic). A small incision will be made in your groin area. A small wire will be put through the incision and into a blood vessel. X-ray dye may be injected so X-rays can be used to guide the wire through the blood vessel. A long, thin tube (catheter) will be put over the small wire and moved up through the blood vessel to reach your heart. The closure device will be moved through the catheter until it reaches your heart. A small hole will be made in the septum (transseptal puncture). The septum is a thin tissue that separates the upper two chambers of the heart. The device will be placed so that it closes the MAGDALENA. X-rays will be done to make sure the device is in the right place. The catheter and wire will be removed. The closure device will remain in your heart. A bandage (dressing) will be placed over the site where the catheter was inserted. Pressure will be applied to prevent any bleeding. The procedure may vary among health care providers and hospitals. What happens after the procedure? Your blood pressure, heart rate, breathing rate, and blood oxygen level will be monitored until the medicines you were given have worn off. You may have to wear compression stockings. These stockings help to prevent blood clots and reduce swelling in your legs. Do not drive for 24 hours if you were given a sedative. Ask your health care provider when it is safe for you to drive. You may be given pain medicine. You may need to drink more fluids to wash (flush) the X-ray dye out of your body. Take kktc-rcg-mjxdhop and prescription medicines only as told by your health care provider. This is especially important if you were given blood thinners. Summary Left atrial appendage (MAGDALENA) closure device implantation is a surgery that is done to put a small device in one of the heart's upper chambers (left atrium). The device is placed in a small sac in the wall of the left atrium (left atrial appendage). The device closes the MAGDALENA to prevent strokes and other problems. Follow instructions from your health care provider before and after the procedure. This information is not intended to replace advice given to you by your health care provider. Make sure you discuss any questions you have with your health care provider. Document Released: 11/11/2017 Document Revised: 06/12/2018 Document Reviewed: 11/11/2017 [employer] Patient Education 2020 [employer]. Left Atrial Appendage Closure Device Implantation, Care After This sheet gives you information about how to care for yourself after your procedure. Your health care provider may also give you more specific instructions. If you have problems or questions, contact your health care provider. What can I expect after the procedure? After the procedure, it is common to have: Some pain, swelling, soreness, and bruising around the site where a long, thin tube (catheter) was inserted in your groin (catheter insertion site). Tiredness. Follow these instructions at home: Catheter insertion area care Follow instructions from your health care provider about how to take care of the catheter insertion site. Make sure you: ? Wash your hands with soap and water before you change your bandage (dressing). If soap and water are not available, use hand director strategic planning. ? Change your dressing as told by your health care provider. ? Leave stitches (sutures), skin glue, or adhesive strips in place. These skin closures may need to stay in place for 2 weeks or longer. If adhesive strip edges start to loosen and curl up, you may trim the loose edges. Do not remove adhesive strips completely unless your health care provider tells you to do that. Skin glue and adhesive strips usually fall off on their own. Check your catheter insertion area every day for signs of infection. Check for: ? Redness, swelling, or pain. ? Fluid or blood. ? Warmth. ? Pus or a bad smell. ? A lump or bump that may develop. Medicines Take vtcf-bmz-vagbzmo and prescription medicines only as told by your health care provider. If you were prescribed antibiotic medicine, take it as told by your health care provider. Do not stop taking the antibiotic even if you start to feel better. You may need to take medicines to prevent blood clots. Activity Do not lift anything that is heavier than 10 lb (4.5 kg), or the limit that you are told, until your health care provider says that it is safe. Avoid activity that requires a lot of effort, including exercise and sports, as told by your health care provider. Ask your health care provider what activities are safe for you. Avoid sexual activity until your health care provider says that it is safe. Do not drive for 24 hours if you were given a medicine to help you relax (sedative) during the procedure. Ask your health care provider when it is safe for you to drive. Lifestyle Limit alcohol intake to no more than 1 drink a day for non women and 2 drinks a day for men. One drink equals 12 oz of beer, 5 oz of wine, or 1 oz of hard liquor. Do not use any products that contain nicotine or tobacco, such as cigarettes and e-cigarettes. If you need help quitting, ask your health care provider. General instructions Do not take baths, swim, shower, or use a hot tub until your health care provider approves. Follow instructions from your health care provider about eating or drinking restrictions. You may need to follow a diet that is low in salt (sodium) and low in fat to prevent heart problems. Keep all follow-up visits as told by your health care provider. This is important. Contact a health care provider if: You have severe pain that does not get better with medicine. You have redness, swelling, or pain around your catheter insertion site. You have fluid or blood coming from your catheter insertion area. Your catheter insertion site feels warm to the touch. You have pus or a bad smell coming from your catheter insertion area. You have a fever. You have nausea and vomiting. You develop a lump or bump in your catheter insertion area. Get help right away if: The catheter insertion area is bleeding, and the bleeding does not stop when you apply and hold steady pressure on the area. You have chest pain. You have trouble breathing. You have dizziness. You faint. You have any symptoms of a stroke. BE FAST is an easy way to remember the main warning signs of a stroke: ? B - Balance. Signs are dizziness, sudden trouble walking, or loss of balance. ? E - Eyes. Signs are trouble seeing or a sudden change in vision. ? F - Face. Signs are sudden weakness or numbness of the face, or the face or eyelid drooping on one side. ? A - Arms. Signs are weakness or numbness in an arm. This happens suddenly and usually on one side of the body. ? S - Speech. Signs are sudden trouble speaking, slurred speech, or trouble understanding what people say. ? T - Time. Time to call emergency services. Write down what time symptoms started. You have other signs of a stroke, such as: ? A sudden, severe headache with no known cause. ? Nausea or vomiting. ? Seizure. These symptoms may represent a serious problem that is an emergency. Do not wait to see if the symptoms will go away. Get medical help right away. Call your local emergency services (911 in the [place] Do not drive yourself to the hospital. Summary It is common to have some pain and soreness after the procedure. Check your catheter insertion area every day for signs of infection, such as redness, swelling, or pain. Do not take baths, swim, shower, or use a hot tub until your health care provider approves. This information is not intended to replace advice given to you by your health care provider. Make sure you discuss any questions you have with your health care provider. Document Released: 10/31/2017 Document Revised: 08/23/2019 Document Reviewed: 10/31/2017 Elsevier Patient Education 2020 [employer] Additional Information VACCINATE! IT SAVES LIVES! Members of the community who have not yet received the COVID-19 vaccine and would like to receive it can visit one of [facility] vaccine clinics. There are many vaccine clinic locations within the [facility]. For locations and available times, please visit [email or web address].o alo.gov/. It is important to note that some COVID mobile vaccine clinics are held outdoors and may be canceled in rainy or stormy conditions. To learn more about pediatric vaccinations (ages 5-11), we invite you to visit the [facility] webpage. [email or web address] To learn more about the COVID-19 vaccine, we invite you to visit the CDC website for a list of frequently asked questions. https://www.cdc.gov/coronavirus/ 2019-ncov/vaccines/faq.html [facility] Patient Portal Access Instructions: Stay connected with your healthcare team and access your personal medical information anytime with the [facility] Patient Portal.If you would like a full copy of your medical records, please contact the [facility] Medical Records Department, Friday through Friday between 8a.m. and 4:30p.m. Please follow the directions below to access the portal: 1.Access the email account you provided upon registration to the hospital.2.Look for an invitation email from [facility].3.Open the email and access the invitation link: Accept Invitation to [facility]4.Fill in the required lim to create your account. Sign into [email or web address] with your username and password that you created in the above steps to stay up to date. You can then view a summary of results, a summary of your visits, and the ability to download your summaries to your computer or send the information securely to a physician. Remember that your healthcare information is confidential, so carefully consider who you will allow to register on the [facility] Patient Portal for access to your information. You can also access the [facility] Patient Portal on the [employer] vladimir. Simply click on Health Records under Health Data and then click on the [facility] logo. HOW TO SAFELY DISPOSE OF PRESCRIPTION MEDICATIONS Please use one of the following methods to safely dispose of your unused medications. 1.Use a drug disposal kit: the drug disposal pouch allows you to safely discard your old and unused drugs. Ask your nurse to give you one when you are discharged.2.Visit a local take-back location: Many local pharmacies and police departments have programs that collect old and unwanted prescription drugs. Call your local pharmacy or go to http://[employer].Smartjog/8T0Uy7o to find one close to you.3.Make use of household items: Use cat litter or old coffee grounds to dispose medications if other options are not available. Mix your drugs with these household products, seal them in an airtight container and throw it into the garbage. Call [facility]: [phone] to be sure your drugs can be disposed of in this way. Some medicines may require a different approach.4.Never flush your medications down the toilet. IF YOU HAVE BEEN PRESCRIBED AN OPIOID FOR PAIN If you have been prescribed an opioid (such as hydrocodone, oxycodone or morphine), it is critical to understand the possible side effects and risks of opioid pain medications. Even when taken as directed, opioids can have several side effects including: Tolerance, meaning you might need to take more of a medication for the same pain relief. Nausea, vomiting and/or constipation. Sleepiness, dizziness, dry mouth, confusion, depression or itching. Physical dependence, meaning you have withdrawal symptoms when a medication is stopped, can develop within a few days. KNOW YOUR RESPONSIBILITIES It is important to know exactly how much and how often to take the opioid pain medications you are prescribed. Never take opioids in higher amounts or more often than prescribed. Do not combine opioids with alcohol or other drugs that cause drowsiness, such as benzodiazepines, also known as benzos, including diazepam and alprazolam, muscle relaxants or sleep aids. Never sell or share prescription opioids. This is illegal. Store opioids in a secure place and out of reach of others (including children, family, friends and visitors). The last page of this document has been signed and retained as a CHART COPY. Signatures Patient Education Materials Left Atrial Appendage Closure Device Implantation Left Atrial Appendage Closure Device Implantation, Care After Medication Leaflets My discharge plan and instructions have been reviewed and explained to me and IEVGENY CECIL P understand my current condition and have read and understand these discharge instructions. I have received a written copy of the plan/instructions. If I have questions, I am aware that I should contact my doctor. 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 All questions were answered. The procedure risks of bleeding, stroke, infection, tamponade, device dislodgment, as well as the imponderables were discussed with the patient. All were in agreement. Preoperative Diagnosis: Persistent atrial fibrillation in a patient with elevated thromboembolic [id number] score. Elevated bleeding HAS-BLED score and intolerant, unwilling or unsuitable to take long-term anticoagulation. Diagnosis(Active) [] Postoperative Diagnosis:Same Operation/Procedure: Left atrial appendage closure device (Watchman) placement. Real-time ultrasonic visualization of the bilateral femoral veins. Intracardiac echocardiography Trans septal cardiac catheterization of an intact interatrial septum. Left atrial pressure measurement as well as left atrial angiogram. Physician Impact Retail Service Merchandiser(s):First: Rylee Lara MD Fellow: Viraj Sotomayor MD Primary Care Physician:Irma Orr MD Referring Physician:Dr. Reese Referring Health Promotion Officer:Dr. Reese Shared Decision Physician:Dr. Reese Imaging Health Promotion Officer:Rylee Lara MD Type of Anesthesia:General Estimated Blood Loss: 30cc Implants:LAAO (Watchman) size: 27mm Radio-contrast Volume:20cc Specimen(s):None Complications:None Operative Procedure:The patient was brought into the hybrid operating room then prepped and draped in a sterile fashion. A right femoral access was obtained with real-time ultrasound assistance of the right common femoral vein. The right sheath was then exchanged with a 16 [place] Cook sheath over an Amplatz wire then delivered successfully in the superior vena cava. Anticoagulation with heparin was the initiated. Transseptal access was obtained via the usual technique. A SL1 catheter was delivered into the superior vena cava over a 0.032 wire. The wire was removed and a [place]rough needle was then delivered into the sheath. The needle was connected to a pressure transducer and all lines were flushed without any air bubbles visualized. Under echocardiographic guidance the SL1 sheath was brought back down an apposed onto the fossa ovalis. During fluoroscopic as well as echocardiographic imaging, at the point of maximal tenting/inflection of the septum, the transseptal needle accessed into the left atrial chamber. A Left atrial pressure was recorded. The sheath was then delivered over the dilator into the left atrial chamber and the dilator and needle was then withdrawn from the sheath under negative suction from the side-port. Confirmation of left atrial access was performed with echocardiographic, hemodynamic and fluoroscopic means. Full anticoagulation was maintained throughout left atrial access and dwell maintaining the ACT at greater than 250 seconds. A 0.032 wire was then delivered into the left pulmonary vein and a pigtail catheter was placed in the left atrial chamber as the french folding machine operator was assisting in sheath and pigtail support. Left Atrial Angiogram: Through the SL1 sheath the pigtail was delivered over the wire into the left atrial appendage. A left atrial angiogram was performed via the sheath using one-to-one diluted contrast. The image was used to determine the atrial appendage morphology and assist in sheath choice for optimal deployment of the Watchman left atrial appendage occluder device. The SL1 sheath was thereafter exchanged with a watchman delivery sheath over a wire. The 5 [place] pigtail catheter was delivered over the wire and successfully placed in the left atrial appendage. A left atrial appendage angiogram was performed with measurements obtained by fluoroscopy. These were compared to measurements obtained by transesophageal echocardiography for optimal sizing of the device. Transesophageal Echocardiographic views and measurements: Left Atrial Appendage Type:Bilobed Baseline: Measurements: Width(mm):0 : []45 : 2090 : []135 : 21 Length(mm):0 : []45 : 2190 : []135 : 20 A 27millimeter left atrial appendage closure device (Watchman) was used. It was prepped and flushed prior to use. Sheath Type: Doublecurve The pigtail catheter was removed and the watchman device was successfully delivered into the sheath. While maintaining the sheath into the left atrial appendage and in position it was pulled back from the device itself with successful delivery of the occluder into the left atrial appendage. Angiography was used to visualized adequate positioning and absence of any residual leak into or out of the appendage. Testing was thereafter performed. Position, [place], Size and Seal (PASS) criteria were confirmed. The plane of maximum diameter was just at or distal to/and spanning the entire MAGDALENA ostium. A TUG test/pull showed adequate anchoring of the device. Compression measurements were obtained and were acceptable (see below). All lobes were distal to the device and sealed. No pericardial effusion was observed. Post-delivery: Measurements: Width (mm): 0 : []45 : 2190 : 58439 : 20 Compression (%):0 : []45 : 2890 : 80301 : 24 The device was successfully released via a counterclockwise turn on the delivery system with no evidence of any dislodgment. A final angiogram was performed via the sheath was performed with adequate device positioning. The sheath was retracted into the right atrial chamber leaving a minimal residual pleural septal defect at best. A bhiabq-qb-zozva suture was placed in the subcutaneous tissue around the sheath entry into the right femoral vein and the sheath was retracted completely achieving full hemostasis thereafter. No complications were noted. The patient was then readmitted and we observed overnight. A final echocardiographic run did not show any evidence of pericardial effusion. There was no evidence of any device related thrombosis. No evidence of any peridevice leak. No gap was noted. ] Plan: 1. Admit for observation overnight with close hemodynamic monitoring. 2. Monitor venous access sites overnight. 3. Resume anticoagulation in 6 hours. 4. 2D echocardiographic imaging the next day with subsequent discharge home to follow as an outpatient on optimal medical management thereafter. Digitally Signed by RYLEE LARA MD on 10/22/2022 11:00 AM [facility] 10-22-2022 Anesthesiology Consult note Patient: ESTEFANY PEPPER Age: 72 years Sex: Male : 1950 Associated Diagnoses: None Author: HENRY LEE MD Preoperative Information Time of last food or liquid consumption: 10/22/2022 00:00:00 Anesthesia history Patient's history: negative. Family's history: negative. Health Status Allergies: Allergic Reactions (Selected) Severity Not Documented Doxycycline- Rash. Jardiance- Shira infection of genital region. Lisinopril- Chronic cough., Allergies (3) ActiveReaction doxycyclineRash JardianceCandida infection of genital region lisinoprilChronic cough Current medications: (Selected) Inpatient Medications Ordered Kefzol: 2 gram(s), 20 mL, 240 mL/hr, IV Push (INT), PREOP pharm Prescriptions Prescribed metoprolol tartrate 25 mg oral tablet: 25 mg, 1 tab(s), Oral, BID, for 90 day(s), Take with food, 180 tab(s), 3 Refill(s) prednisone 10mg tab (TAPER): Taper 35-45-05-30-20-10-5 x 1 day, Oral, qAM, for 7 day(s), 22 tab(s), 0 Refill(s) tamsulosin 0.4 mg oral capsule: 0.4 mg, 1 cap(s), Oral, qPM, for 90 day(s), 90 cap(s), 3 Refill(s) Documented Medications Documented Eliquis 5 mg oral tablet: 5 mg, 1 tab(s), Oral, BID, 0 Refill(s) NIFEdipine 90 mg oral tablet, extended release: 90 mg, 1 tab(s), Oral, qAM, 0 Refill(s) Trelegy Ellipta 100 mcg-62.5 mcg-25 mcg/inh inhalation powder: 1 puff(s), Inhalation, qDay, at the same time every day. Following administration, rinse mouth with water after use (do not swallow)., 60 EA, 0 Refill(s) Vitamin C 500 mg oral tablet: 500 mg, 1 tab(s), Oral, qDay, 30 tab(s), 0 Refill(s) Vitamin D3 25 mcg (1000 intl units) oral capsule: 25 mcg, 1 cap(s), Oral, qDay, 100 cap(s), 0 Refill(s) acetaminophen 650 mg oral tablet, extended release: 1,300 mg, 2 tab(s), Oral, q12h, PRN: as needed for pain, 24 tab(s), 0 Refill(s) albuterol MDI (90 mcg/inh) CFC free inhalation aerosol: 2 puff(s), Inhalation, q4h, PRN: as needed for wheezing, 18 gram(s), 0 Refill(s) albuterol 2.5 mg/3 mL (0.083%) inhalation solution: 2.5 mg, 3 mL, Inhalation, q6h, PRN: for wheezing, 60 EA, 0 Refill(s) amLODIPine 5 mg oral tablet: 5 mg, 1 tab(s), Oral, qAM, 30 tab(s), 0 Refill(s) atorvastatin 40 mg oral tablet: 40 mg, 1 tab(s), Oral, qPM, 0 Refill(s) azithromycin 250 mg oral tablet: 250 mg, 1 tab(s), Oral, qPM, for 4 day(s), 4 tab(s), 0 Refill(s) donepezil 5 mg oral tablet: 5 mg, 1 tab(s), Oral, qHS, 30 tab(s), 0 Refill(s) ferrous gluconate 324 mg (38 mg elemental iron) oral tablet: 324 mg, 1 tab(s), Oral, qPM, 100 tab(s), 0 Refill(s) gabapentin 300 mg oral capsule: 300 mg, 1 cap(s), Oral, TID, 270 cap(s), 0 Refill(s) guaiFENesin 1200 mg oral tablet, extended release: 1,200 mg, 1 tab(s), Oral, q12h, 0 Refill(s) magnesium oxide 400 mg oral tablet: 400 mg, 1 tab(s), Oral, qPM, for 7 day(s), 7 tab(s), 0 Refill(s) metFORMIN 1000 mg oral tablet (IR): 1,000 mg, 1 tab(s), Oral, BID, 180 tab(s), 0 Refill(s) mirtazapine 15 mg oral tablet: 15 mg, 1 tab(s), Oral, qHS, 30 tab(s), 0 Refill(s) montelukast 10 mg oral tablet: 10 mg, 1 tab(s), Oral, qPM, 30 tab(s), 0 Refill(s) omega-3 fish oil 1000 mg oral capsule: 1,000 mg, 1 cap(s), Oral, BID, 90 cap(s), 0 Refill(s) pantoprazole 40 mg oral enteric coated tablet: 40 mg, 1 tab(s), Oral, qAM, 90 tab(s), 0 Refill(s) roflumilast 500 mcg oral tablet: 500 mcg, 1 tab(s), Oral, qPM, 0 Refill(s) sertraline 50 mg oral tablet: 50 mg, 1 tab(s), Oral, qAM, 0 Refill(s) torsemide 5 mg oral tablet: 5 mg, 1 tab(s), Oral, qAM, 30 tab(s), 0 Refill(s) traMADol 50 mg oral tablet: 50 mg, 1 tab(s), Oral, q12h, PRN: for pain, 12 tab(s), 0 Refill(s) valsartan 320 mg oral tablet: 320 mg, 1 tab(s), Oral, qAM, 0 Refill(s), Medications (1) Active Scheduled: (1) ceFAZolin syringe 2 gram(s) 20 mL, IV Push (INT), PREOP pharm Continuous: (0) PRN: (0) Problem list: Medical Memory loss / SNOMED CT 55515208 / Confirmed Coronary artery disease / SNOMED CT 20246626 / Confirmed COPD with emphysema / SNOMED CT 778211155 / Confirmed, Active Problems (28) Afib Anxiety BPH (benign prostatic hyperplasia) Cataract CHF (congestive heart failure) COPD (chronic obstructive pulmonary disease) COPD with emphysema Coronary artery disease Degenerative lumbar disc Dementia Depression Diarrhea DM2 (diabetes mellitus, type 2) GERD (gastroesophageal reflux disease) GIB (gastrointestinal bleeding) Hard of hearing Hearing aid HTN (hypertension) Hypercholesterolemia Memory loss Neuropathy Oxygen dependent Presence of dental prosthetic device Psoriasis Pulmonary hypertension Sleep apnea with use of nocturnal bilevel positive airway pressure (BPAP) Urinary incontinence Vitamin D deficiency Histories Past Medical History: Resolved COVID ([id number]): Onset in the month of 05/2021 at 71 years Resolved. Family History: Aneurysm Brother Heart disease Brother Diabetes mellitus type 2 Mother Father Brother Stroke Mother CAD - Coronary artery disease Mother COPD (Chronic Obstructive Pulmonary Disease) Assessment Test scale Father Procedure history: Colonoscopy ([id number]) on 02/11/[address] angiography of chest with contrast ([id number]) on 06/02/2021 at 71 Years. Comments: 07/10/2022 13:43 Theodora Aguirre RN From [facility]: No PE. Findings are most c/w mild pulmonary edema and CHF superimposed underlying chronic lung disease. CAD. Mild cardiac enlargement. Cardiac catheterization ([id number]) on 02/06/2021 at 70 Years. Comments: 07/10/2022 13:31 Theodora Aguirre RN [facility]: Normal LV end diastolic pressure. Normal LV size, wall motion, and systolic function. LVEF 65%. Eek multivessel CAD. RCA stents patent. No mitral valve insufficiency appreciated. Echocardiogram ([id number]) on 02/06/2021 at 70 Years. Comments: 07/10/2022 13:37 Theodora Aguirre RN From [facility]: Normal LVEF of 65%. Trivial mitral insuff. Trivial tricuppid valve insuff. Mild aortic valve stenosis. Diastolic function is indeterminate. Unable to estimate RV systolic pressure/pulmonary artery pressure due to technically difficult study. Cardiac catheterization ([id number]) on 05/01/2018 at 68 Years. Comments: 07/10/2022 13:23 Theodora Aguirre RN Cardiac acth with PCI/stent of the proximal RCA History of right hip replacement ([id number]). Comments: 10/15/2022 8:24 TORRIE Sharma x2 EGD (esophagogastroduodenoscopy) gastric outlet reduction ([id number]). Prescription event monitoring ([id number]). Comments: 07/10/2022 13:39 Theodora Aguirre RN 02/01/21 to 03/02/21 [employer] Event monitor Right hip injury ([id number]). Comments: 10/15/2022 8:23 TORRIE Sharma Pinning of rt hip Social History Social & Psychosocial Habits Alcohol 12/17/2021 Use: Past Employment/School 07/10/2022 Status: Retired Substance Abuse 12/17/2021 Use: Never Tobacco 12/17/2021 Tobacco Use: Former smoker, quit more Tobacco use per day: 40 Started at age: 14 Years Stopped at age: 58 Years Home/Environment 10/15/2022 Domestic Concerns None Living situation: Home/Independent Lives In Single level home Marital Status of Patient if Patient Independent Adult: Nutrition/Health 07/10/2022 Caffeine intake amount: 2 cups per day . Physical Examination Vital Signs 10/22/2022 5:46 EDT Temperature Oral 36.6 DegC Peripheral Pulse Rate 53 bpm LOW Respiratory Rate 18 br/min Systolic Blood Pressure Non-Invasive 188 mmHg HI Diastolic Blood Pressure Non-Invasive 66 mmHg Blood Pressure Method Automatic Blood Pressure Location Left arm Blood Pressure Cuff Size Large Vital Signs(last 24 hrs) Last Charted Temp Oral36.6 DegC (OCT 22 05:46) Resp Rate 18 br/min (OCT 22 05:46) SBPH 188mmHg (OCT 22 05:46) DBP66 mmHg (OCT 22 05:46) BMI34.36 (OCT 22 05:46) Measurements from flowsheet : Measurements 10/22/2022 5:46 EDT Height 170.0 cm Height in inches 66.9 inch(es) Admission Weight 99.3 kg Weight Lbs 218.5 lb Weight Method Actual [place] Body Weight 65.94 kg Body Mass Index In Error kg/m2 (In Error) Body Mass Index 34.36 kg/m2 Admission Body Mass Index 34.36 m2 Pain assessment: Pain Assessment 10/22/2022 5:46 EDT Primary Pain Intensity 0 Pain Scale Type 0-10 Pain scale . General: Alert and oriented, No acute distress. Airway: Mallampati classification: II (soft palate, fauces, uvula visible). Dentition Evaluation: Missing teeth. Respiratory: Lungs are clear to auscultation. Cardiovascular: Normal rate. Heart Sounds: Normal. Review / Management Results review: Labs (Last four charted values) Plt 231(OCT 22) , Lab results 10/22/2022 6:28 EDT SN - Preop - CTm - Pt in HL SD Room 10/22/2022 5:30 SN - Preop - CTm - HL Pt Ready for Procedure 10/22/2022 6:28 10/22/2022 6:14 EDT chlorhexidine topical 15 mL mL 10/22/2022 6:12 EDT Platelet 231 10^3/mcL 10/22/2022 5:50 EDT Individuals Taught Spouse Learning Readiness Willing to learn Barriers to Learning None evident Teaching Method Explanation, Printed materials Preferred Written Language Citizen Of [place] Preferred Spoken Language Citizen Of [place] Pre Procedure/Surgery Education Appropriate expectations, Date/Time of procedure/surgery, Surgical skin prep, Transfer to ICU after surgery Procedure/Surgical Teaching Evaluation Verbalizes/Nonverbally indicates understanding Procedure/Surgery Testing Education Lab tests 10/22/2022 5:46 EDT Designated Person #1 We May Share ESMER Chicas [phone] Designated Person #1 Relationship Spouse Privacy Restrictions Requested None Height 170.0 cm Height in inches 66.9 inch(es) Admission Weight 99.3 kg Weight Lbs 218.5 lb Weight Method Actual [place] Body Weight 65.94 kg Body Mass Index In Error kg/m2 (In Error) Body Mass Index 34.36 kg/m2 Admission Body Mass Index 34.36 m2 Temperature Oral 36.6 DegC Peripheral Pulse Rate 53 bpm LOW Respiratory Rate 18 br/min Systolic Blood Pressure Non-Invasive 188 mmHg HI Diastolic Blood Pressure Non-Invasive 66 mmHg Blood Pressure Method Automatic Blood Pressure Location Left arm Blood Pressure Cuff Size Large Primary Pain Intensity 0 Pain Scale Type 0-10 Pain scale Heart Sounds ICU S1S2 Heart Rhythm Regular Murmur Auscultated No Dorsalis Pedis Pulse, Left 2+ Normal Dorsalis Pedis Pulse, Right 2+ Normal Posttibial Pulse, Left 2+ Normal Posttibial Pulse, Right 2+ Normal Brachial Pulse Left 2+ Normal Brachial Pulse Right 2+ Normal Ulnar Pulse Left 2+ Normal Ulnar Pulse Right 2+ Normal Radial Pulse, Left 2+ Normal Radial Pulse, Right 2+ Normal Respiratory Symptoms Difficulty breathing with activity Respirations Unlabored Respiratory Pattern Regular Breath Sounds Auscultated Anterior and posterior All Lobes Breath Sounds Clear Cough and Deep Breathe Done Cough None Oxygen Therapy Nasal cannula 0L-6L Oxygen Saturation 93 % Oxygen Flow Rate 3 Abdomen Description Non-distended, Soft, Rounded Passing Flatus Yes Bowel Sounds All Quadrants Present Urinary Elimination Voiding, no difficulties, Incontinence Status N/A Skin Temperature Warm Skin Description [place], Dry Skin Integrity Intact Mucous Membrane Color [place] Skin Moisture General Dry IV Present Present Forearm Left 10/22/2022 20 gauge Peripheral IV Activity: Insert new site Peripheral IV Dressing Condition: Clean, Dry, Intact Peripheral IV Dressing Activity: Applied, Transparent dressing Peripheral IV Line Status/Patency: Flushes easily, Good blood return Peripheral IV Site Condition: No complications Peripheral IV Equipment: Manual, Extension set, PRN Adaptor Peripheral IV Number of Attempts: 1 Extremity Movement Equal Characteristics of Speech Clear Level of Consciousness Alert ANTONIO Yes Strength All Extremities Moderate Affect/Behavior Appropriate, Calm, Cooperative Orientation Oriented x 4, Forgetful, Other: h/o dementia Sensory Deficits None Sleep Apnea Snore Yes (Modified) Sleep Apnea Tired Yes Sleep Apnea Obstruction No Sleep Apnea Pressure Yes Sleep Apnea BMI No Sleep Apnea Age Yes Sleep Apnea Neck Yes Sleep Apnea Gender Yes Sleep Apnea Score 6 >HHI (Modified) High Risk for Sleep Apnea Yes Diagnosed With Sleep Apnea Yes (Modified) Advanced Directives Yes Advance Directive Type [place] Durable Power of Peanut Blancher [facility], [place] Declaration (Living Will) Advance Directive Location Indicates that [facility] has been given copy Infectious Disease Symptoms Patient states no symptoms Infectious Disease Recent Exposure No Alcohol and Drug Use No Employee of Institutional Living No Health Care Employee No History of Exposure to TB No History of Positive Chest X-Ray for TB No History of Positive TB Skin Test No Homeless No Known Immunosuppression No Recent Immigrant No Resident of Institutional Living No Bloody Sputum No Fatigue No Fever No Loss of Appetite No Night Sweats No Persistent Cough > 3 Weeks No Weight Loss No Allergies Yes Consent Form Signed Yes Patient Dressed In Hospital gown, No undergarments Pre-op Preparation Dentures, full removed, Jewelry removed, Undergarments removed CHG Preoperative Wash/Wipe Night before procedure, Day of procedure, Site specific wipe Preop Nasal Swab Povidone-Iodine CHG Skin Prep Completed for Eligible Surgery History & Physical On Chart Yes Obstructive Sleep Apnea Assess Completed Yes MRSA/MSSA Protocol Yes Safety Brochure Information Reviewed Yes [facility] Welcome Video Viewed No Individuals Taught Patient Learning Readiness Willing to learn Barriers to Learning Cognitive deficits Teaching Method Explanation Teaching Evaluation Verbalizes/Nonverbally indicates understanding Preferred Written Language Citizen Of [place] Preferred Spoken Language Citizen Of [place] Pre Procedure/Surgery Education Appropriate expectations, Date/Time of procedure/surgery, Surgical skin prep, Transfer to ICU after surgery Procedure/Surgical Teaching Evaluation Verbalizes/Nonverbally indicates understanding Procedure/Surgery Testing Education Lab tests Information Given by Patient Patient's Current Physicians Patient's Current Physicians Discharge To, Anticipated Home with family care Activity Status ADL Awake, Resting Assistive Device Walker NPO Status Maintained Standard Safety ID band on, Allergy Band on, Call device within reach, Bed in low position, Wheels locked, Upper/Half-Length side-rails up, Phone within reach, Visitor at bedside, Safety level maintained, Non-Slip footwear, Precautions maintained High Risk Safety Identified as high risk, Fall ID band on, Bed alert on, Non-Slip footwear Demonstrates Correct Call Light Use Yes Prev Test Positive/Diagnosis w/COVID-19 No Current Quarantine/Isolated any Illness No Any Contact with Sick Animals/Birds No Traveled Anywhere in Last 30 Days No Allergy Band on and Verified Yes Patient ID Band on and Verified Yes Blood Consent Signed Yes Last Fluid Intake 10/21/2022 21:00 Last Food Intake 10/21/2022 21:00 Last Void 10/22/2022 6:24 Lost Weight Unintentionally Recently No Eat Poorly Due to Decreased Appetite No Total MST Score 0 N/A Personal Devices, Patient Valuables None Anesthesia/Transfusions Prior anesthesia, Prior transfusion (Modified) Admission Note-Nursing Same Day Patient History (Modified) 10/21/2022 12:23 EDT Stella BRAVO . Assessment and Plan [place] [employer] Anesthesiologists (ASA) physical status classification: Class IV, CAD; afib; ELISHA on BiPAP; O2-dependent COPD; HTN; DM; hyperlipidemia; dementia. Anesthetic Preoperative Plan Anesthetic technique: MAC. Induction: via mask, ETCO2 monitor. Special Monitoring: Arterial line, Central venous catheter. Risks discussed: nausea, vomiting, headache, sore throat, dental injury, hypotension, allergic reaction, serious complications. Informed consent: signed by patient. Notes: Patient and family concerned about intubation with subsequent prolonged mechanical ventilation, given his compromised respiratory status secondary to COPD. Functional Manager has recommended MAC anesthesia if possible. Cardiology will use ICE instead of AZUL to facilitate this without intubation and paralysis. If we are unable to manage under MAC then will conssider LMA. This was discussed extensively with the patient and he agrees. Patient was seen and examined by Henry loredo MD. The medical record was reviewed. Consultations, lab results , radiographic results and cardiovascular studies examined and noted. Anesthesia was explained in detail and questions were invited and answered. We will proceed as outlined in the plan above.. Digitally Signed by HENRY LEE MD on 10/22/2022 06:33 AM Digitally Signed by HENRY LEE MD on 10/22/2022 08:07 AM [facility] 02-11-2022 Hospital Discharg e instructions Patient Education 02/11/2022 10:12:09 Monitored Anesthesia Care, Care After Monitored Anesthesia Care, Care After These instructions provide you with information about caring for yourself after your procedure. Your health care provider may also give you more specific instructions. Your treatment has been planned according to current medical practices, but problems sometimes occur. Call your health care provider if you have any problems or questions after your procedure. What can I expect after the procedure? After your procedure, you may: Feel sleepy for several hours. Feel clumsy and have poor balance for several hours. Feel forgetful about what happened after the procedure. Have poor judgment for several hours. Feel nauseous or vomit. Have a sore throat if you had a breathing tube during the procedure. Follow these instructions at home: For at least 24 hours after the procedure: Have a responsible adult stay with you. It is important to have someone help care for you until you are awake and alert. Rest as needed. Do not: ?Participate in activities in which you could fall or become injured. ?Drive. ?Use heavy machinery. ?Drink alcohol. ?Take sleeping pills or medicines that cause drowsiness. ?Make important decisions or sign legal documents. ?Take care of children on your own. Eating and drinking Follow the diet that is recommended by your health care provider. If you vomit, drink water, juice, or soup when you can drink without vomiting. Make sure you have little or no nausea before eating solid foods. General instructions Take bhyr-vsg-pnpfinm and prescription medicines only as told by your health care provider. If you have sleep apnea, surgery and certain medicines can increase your risk for breathing problems. Follow instructions from your health care provider about wearing your sleep device: ?Anytime you are sleeping, including during daytime naps. ?While taking prescription pain medicines, sleeping medicines, or medicines that make you drowsy. If you smoke, do not smoke without supervision. Keep all follow-up visits as told by your health care provider. This is important. Contact a health care provider if: You keep feeling nauseous or you keep vomiting. You feel light-headed. You develop a rash. You have a fever. Get help right away if: You have trouble breathing. Summary For several hours after your procedure, you may feel sleepy and have poor judgment. Have a responsible adult stay with you for at least 24 hours or until you are awake and alert. This information is not intended to replace advice given to you by your health care provider. Make sure you discuss any questions you have with your health care provider. Document Released: 10/20/2016 Document Revised: 09/28/2018 Document Reviewed: 10/20/2016 [employer] Patient Education 2020 [employer]. 02/11/2022 10:12:09 Colonoscopy, Adult, Care After, Mlka-ci-Hzgb Colonoscopy, Adult, Care After This sheet gives you information about how to care for yourself after your procedure. Your doctor may also give you more specific instructions. If you have problems or questions, call your doctor. What can I expect after the procedure? After the procedure, it is common to have: A small amount of blood in your poop for 24 hours. Some gas. Mild cramping or bloating in your belly. Follow these instructions at home: General instructions For the first 24 hours after the procedure: ?Do not drive or use machinery. ?Do not sign important documents. ?Do not drink alcohol. ?Do your daily activities more slowly than normal. ?Eat foods that are soft and easy to digest. Take mdcn-spk-vmydfzc or prescription medicines only as told by your doctor. To help cramping and bloating: Try walking around. Put heat on your belly (abdomen) as told by your doctor. Use a heat source that your doctor recommends, such as a moist heat pack or a heating pad. ?Put a towel between your skin and the heat source. ?Leave the heat on for 20 30 minutes. ?Remove the heat if your skin turns bright red. This is especially important if you cannot feel pain, heat, or cold. You can get burned. Eating and drinking Drink enough fluid to keep your pee (urine) clear or pale yellow. Return to your normal diet as told by your doctor. Avoid heavy or fried foods that are hard to digest. Avoid drinking alcohol for as long as told by your doctor. Contact a doctor if: You have blood in your poop (stool) 2 3 days after the procedure. Get help right away if: You have more than a small amount of blood in your poop. You see large clumps of tissue (blood clots) in your poop. Your belly is swollen. You feel sick to your stomach (nauseous). You throw up (vomit). You have a fever. You have belly pain that gets worse, and medicine does not help your pain. Summary After the procedure, it is common to have a small amount of blood in your poop. You may also have mild cramping and bloating in your belly. For the first 24 hours after the procedure, do not drive or use machinery, do not sign important documents, and do not drink alcohol. Get help right away if you have a lot of blood in your poop, feel sick to your stomach, have a fever, or have more belly pain. This information is not intended to replace advice given to you by your health care provider. Make sure you discuss any questions you have with your health care provider. Document Released: 08/02/2011 Document Revised: 04/30/2018 Document Reviewed: 03/24/2017 [employer] Patient Education [employer]. Follow Up Care 02/01/2022 07:36:55 With:SHAUN BOOGIE MD Address: [address] [facility] [address] [place] [phone] When: Unknown Comments:office will call with lab results and any follow up if needed [facility] 02-11-2022 Summary of episod e note Discharge Instructions Thank you for allowing [facility] to assist you with your healthcare needs. The following is important discharge information regarding your hospital visit. Your Care Team VIRAJ RAMIREZ DO What to do next Follow Up Appointments Follow Up with SHAUN BOOGIE MD When Why: office will call with lab results and any follow up if needed Where: [address] [facility] [address] [place] [address] [phone] Allergies Jardiance doxycycline lisinopril Medications Please ask your primary doctor or pharmacist before taking any other medication not listed, including over the counter drugs, herbal medications, vitamins and or supplements as they may interact with your home medications. What How Much When Instructions Last Dose Unchanged albuterol (albuterol 2.5 mg/ 3 mL (0.083%) inhalation solution) 3 Milliliter by inhalation Every 6 hours as needed for for wheezing Unchanged apixaban (Eliquis 5 mg oral tablet) 1 tab(s) by mouth Two (2) times a day Unchanged ferrous gluconate (ferrous gluconate 324 mg (38 mg elemental iron) oral tablet) 1 tab(s) by mouth Two (2) times a day Unchanged formoterol-mometasone (formoterol-mometasone 5 mcg-200 mcg/ inh Metered Dose Inhaler) 2 puff(s) by inhalation Two (2) times a day Unchanged gabapentin (gabapentin 100 mg oral capsule) 2 cap by mouth Two (2) times a day Unchanged glipiZIDE (glipiZIDE 5 mg oral tablet) 1 tab(s) by mouth Once a day before a meal Unchanged metoprolol (metoprolol tartrate 25 mg oral tablet) 1 tab(s) by mouth Two (2) times a day Duration: 90 Days Take with food Unchanged Misc Medication (atorvastatin 40 mg tablet) Unchanged Misc Medication (metoprolol tartrate 50 mg tablet) Unchanged Misc Medication (Vitamin C 500 mg tablet) Unchanged montelukast (montelukast 10 mg oral tablet) 1 tab(s) by mouth Once a day (in the evening) Unchanged NIFEdipine (NIFEdipine 90 mg oral tablet, extended release) 1 tab(s) by mouth Once a day Unchanged nitroGLYcerin (nitroglycerin 0.4 mg sublingual tablet) place 1 tablet under the tongue if needed every 5 minutes for naren... (REFER TO PRESCRIPTION NOTES). Unchanged olodaterol-tiotropium (olodaterol-tiotropium 2.5 mcg-2.5 mcg/ inh inhalation aerosol) 2 puff(s) by inhalation Every 24 hours Unchanged pantoprazole (pantoprazole 40 mg oral enteric coated tablet) 1 tab(s) by mouth Once a day Unchanged roflumilast (roflumilast 500 mcg oral tablet) 1 tab(s) by mouth Once a day Unchanged sertraline (sertraline 50 mg oral tablet) 1 tab(s) by mouth Every day Unchanged tamsulosin 0.4 Milligram by mouth Once a day Unchanged tamsulosin (tamsulosin 0.4 mg oral capsule) 1 cap by mouth Once a day Duration: 90 Days Unchanged torsemide (torsemide 5 mg oral tablet) 1 tab(s) by mouth Every day Unchanged valsartan (valsartan 320 mg oral tablet) 1 tab(s) by mouth Every day Please take this list to your next doctor s visit. Bring all medications you take, including over the counter medications, herbals and other supplements with you to your doctor s visit. Patients and families are reminded to discard old lists and to update any records with all medication providers or retail pharmacies. Education Materials Monitored Anesthesia Care, Care After These instructions provide you with information about caring for yourself after your procedure. Your health care provider may also give you more specific instructions. Your treatment has been planned according to current medical practices, but problems sometimes occur. Call your health care provider if you have any problems or questions after your procedure. What can I expect after the procedure? After your procedure, you may: Feel sleepy for several hours. Feel clumsy and have poor balance for several hours. Feel forgetful about what happened after the procedure. Have poor judgment for several hours. Feel nauseous or vomit. Have a sore throat if you had a breathing tube during the procedure. Follow these instructions at home: For at least 24 hours after the procedure: Have a responsible adult stay with you. It is important to have someone help care for you until you are awake and alert. Rest as needed. Do not: ? Participate in activities in which you could fall or become injured. ? Drive. ? Use heavy machinery. ? Drink alcohol. ? Take sleeping pills or medicines that cause drowsiness. ? Make important decisions or sign legal documents. ? Take care of children on your own. Eating and drinking Follow the diet that is recommended by your health care provider. If you vomit, drink water, juice, or soup when you can drink without vomiting. Make sure you have little or no nausea before eating solid foods. General instructions Take dqvy-hbx-gxmjpny and prescription medicines only as told by your health care provider. If you have sleep apnea, surgery and certain medicines can increase your risk for breathing problems. Follow instructions from your health care provider about wearing your sleep device: ? Anytime you are sleeping, including during daytime naps. ? While taking prescription pain medicines, sleeping medicines, or medicines that make you drowsy. If you smoke, do not smoke without supervision. Keep all follow-up visits as told by your health care provider. This is important. Contact a health care provider if: You keep feeling nauseous or you keep vomiting. You feel light-headed. You develop a rash. You have a fever. Get help right away if: You have trouble breathing. Summary For several hours after your procedure, you may feel sleepy and have poor judgment. Have a responsible adult stay with you for at least 24 hours or until you are awake and alert. This information is not intended to replace advice given to you by your health care provider. Make sure you discuss any questions you have with your health care provider. Document Released: 10/20/2016 Document Revised: 09/28/2018 Document Reviewed: 10/20/2016 [employer] Patient Education 2020 [employer]. Colonoscopy, Adult, Care After This sheet gives you information about how to care for yourself after your procedure. Your doctor may also give you more specific instructions. If you have problems or questions, call your doctor. What can I expect after the procedure? After the procedure, it is common to have: A small amount of blood in your poop for 24 hours. Some gas. Mild cramping or bloating in your belly. Follow these instructions at home: General instructions For the first 24 hours after the procedure: ? Do not drive or use machinery. ? Do not sign important documents. ? Do not drink alcohol. ? Do your daily activities more slowly than normal. ? Eat foods that are soft and easy to digest. Take knac-zeg-cjpcqgh or prescription medicines only as told by your doctor. To help cramping and bloating: Try walking around. Put heat on your belly (abdomen) as told by your doctor. Use a heat source that your doctor recommends, such as a moist heat pack or a heating pad. ? Put a towel between your skin and the heat source. ? Leave the heat on for 20 30 minutes. ? Remove the heat if your skin turns bright red. This is especially important if you cannot feel pain, heat, or cold. You can get burned. Eating and drinking Drink enough fluid to keep your pee (urine) clear or pale yellow. Return to your normal diet as told by your doctor. Avoid heavy or fried foods that are hard to digest. Avoid drinking alcohol for as long as told by your doctor. Contact a doctor if: You have blood in your poop (stool) 2 3 days after the procedure. Get help right away if: You have more than a small amount of blood in your poop. You see large clumps of tissue (blood clots) in your poop. Your belly is swollen. You feel sick to your stomach (nauseous). You throw up (vomit). You have a fever. You have belly pain that gets worse, and medicine does not help your pain. Summary After the procedure, it is common to have a small amount of blood in your poop. You may also have mild cramping and bloating in your belly. For the first 24 hours after the procedure, do not drive or use machinery, do not sign important documents, and do not drink alcohol. Get help right away if you have a lot of blood in your poop, feel sick to your stomach, have a fever, or have more belly pain. This information is not intended to replace advice given to you by your health care provider. Make sure you discuss any questions you have with your health care provider. Document Released: 08/02/2011 Document Revised: 04/30/2018 Document Reviewed: 03/24/2017 [employer] Patient Education 2020 [employer]. Additional Information VACCINATE! IT SAVES LIVES! Members of the community who have not yet received the COVID-19 vaccine and would like to receive it can visit one of [facility] vaccine clinics. There are many vaccine clinic locations within the [facility]. For locations and available times, please visit [email or web address] It is important to note that some COVID mobile vaccine clinics are held outdoors and may be canceled in rainy or stormy conditions. To learn more about pediatric vaccinations (ages 5-11), we invite you to visit the [facility] webpage. [email or web address] [email or web address] To learn more about the COVID-19 vaccine, we invite you to visit the [facility] website for a list of frequently asked questions. [email or web address] [email or web address].pdf [facility] Patient Portal Access Instructions: Stay connected with your healthcare team and access your personal medical information anytime with the [facility] Patient Portal.If you would like a full copy of your medical records, please contact the [facility] Medical Records Department, Friday through Friday between 8a.m. and 4:30p.m. Please follow the directions below to access the portal: 1.Access the email account you provided upon registration to the hospital.2.Look for an invitation email from [facility].3.Open the email and access the invitation link: Accept Invitation to [facility].Fill in the required lim to create your account. Sign into [email or web address] with your username and password that you created in the above steps to stay up to date. You can then view a summary of results, a summary of your visits, and the ability to download your summaries to your computer or send the information securely to a physician. Remember that your healthcare information is confidential, so carefully consider who you will allow to register on the [facility] Patient Portal for access to your information. You can also access the [facility] Patient Portal on the myWebRoom. Simply click on Health Records under Health Data and then click on the [facility] logo. HOW TO SAFELY DISPOSE OF PRESCRIPTION MEDICATIONS Please use one of the following methods to safely dispose of your unused medications. 1.Use a drug disposal kit: the drug disposal pouch allows you to safely discard your old and unused drugs. Ask your nurse to give you one when you are discharged.2.Visit a local take-back location: Many local pharmacies and police departments have programs that collect old and unwanted prescription drugs. Call your local pharmacy or go to http://[employer].Smartjog/8E5Sa6s to find one close to you.3.Make use of household items: Use cat litter or old coffee grounds to dispose medications if other options are not available. Mix your drugs with these household products, seal them in an airtight container and throw it into the garbage. Call [facility]: [phone] to be sure your drugs can be disposed of in this way. Some medicines may require a different approach.4.Never flush your medications down the toilet. IF YOU HAVE BEEN PRESCRIBED AN OPIOID FOR PAIN If you have been prescribed an opioid (such as hydrocodone, oxycodone or morphine), it is critical to understand the possible side effects and risks of opioid pain medications. Even when taken as directed, opioids can have several side effects including: Tolerance, meaning you might need to take more of a medication for the same pain relief. Nausea, vomiting and/or constipation. Sleepiness, dizziness, dry mouth, confusion, depression or itching. Physical dependence, meaning you have withdrawal symptoms when a medication is stopped, can develop within a few days. KNOW YOUR RESPONSIBILITIES It is important to know exactly how much and how often to take the opioid pain medications you are prescribed. Never take opioids in higher amounts or more often than prescribed. Do not combine opioids with alcohol or other drugs that cause drowsiness, such as benzodiazepines, also known as benzos, including diazepam and alprazolam, muscle relaxants or sleep aids. Never sell or share prescription opioids. This is illegal. Store opioids in a secure place and out of reach of others (including children, family, friends and visitors). The last page of this document has been signed and retained as a CHART COPY. Signatures Patient Education Materials Monitored Anesthesia Care, Care After Colonoscopy, Adult, Care After, Nafn-qt-Kqev Medication Leaflets My discharge plan and instructions have been reviewed and explained to me and I,ESTEFANY PEPPER understand my current condition and have read and understand these discharge instructions. I have received a written copy of the plan/instructions. If I have questions, I am aware that I should contact my doctor. 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 Family's history: negative. Health Status Allergies: Allergic Reactions (Selected) Severity Not Documented Doxycycline- No reactions were documented. Jardiance- No reactions were documented. Lisinopril- No reactions were documented., Allergies (3) ActiveReaction doxycyclineNone Documented JardianceNone Documented lisinoprilNone Documented Current medications: (Selected) Inpatient Medications Ordered LR 1,000 mL: 50 mL/hr, Intravenous Prescriptions Prescribed metoprolol tartrate 25 mg oral tablet: 25 mg, 1 tab(s), Oral, BID, for 90 day(s), Take with food, 180 tab(s), 3 Refill(s) tamsulosin 0.4 mg oral capsule: 0.4 mg, 1 cap(s), Oral, qDay, for 90 day(s), 90 cap(s), 3 Refill(s) Documented Medications Documented Eliquis 5 mg oral tablet: 5 mg, 1 tab(s), Oral, BID, 0 Refill(s) NIFEdipine 90 mg oral tablet, extended release: 90 mg, 1 tab(s), Oral, qDay, 0 Refill(s) Vitamin C 500 mg tablet: 0 Refill(s) albuterol 2.5 mg/3 mL (0.083%) inhalation solution: 2.5 mg, 3 mL, Inhalation, q6h, PRN: for wheezing, 60 EA, 0 Refill(s) atorvastatin 40 mg tablet: 0 Refill(s) ferrous gluconate 324 mg (38 mg elemental iron) oral tablet: 324 mg, 1 tab(s), Oral, BID, 100 tab(s), 0 Refill(s) formoterol-mometasone 5 mcg-200 mcg/inh Metered Dose Inhaler: 2 puff(s), Inhalation, BID, 13 gram(s), 0 Refill(s) gabapentin 100 mg oral capsule: 200 mg, 2 cap(s), Oral, BID, 120 cap(s), 0 Refill(s) glipiZIDE 5 mg oral tablet: 5 mg, 1 tab(s), Oral, qDayAC, 0 Refill(s) metoprolol tartrate 50 mg tablet: 0 Refill(s) montelukast 10 mg oral tablet: 10 mg, 1 tab(s), Oral, qPM, 30 tab(s), 0 Refill(s) nitroglycerin 0.4 mg sublingual tablet: place 1 tablet under the tongue if needed every 5 minutes for naren... (REFER TO PRESCRIPTION NOTES). olodaterol-tiotropium 2.5 mcg-2.5 mcg/inh inhalation aerosol: 2 puff(s), Inhalation, q24h, 0 Refill(s) pantoprazole 40 mg oral enteric coated tablet: 40 mg, 1 tab(s), Oral, qDay, 90 tab(s), 0 Refill(s) roflumilast 500 mcg oral tablet: 500 mcg, 1 tab(s), Oral, qDay, 0 Refill(s) sertraline 50 mg oral tablet: 50 mg, 1 tab(s), Oral, Daily, 0 Refill(s) tamsulosin: 0.4 mg, Oral, qDay, 0 Refill(s) torsemide 5 mg oral tablet: 5 mg, 1 tab(s), Oral, Daily, 30 tab(s), 0 Refill(s) valsartan 320 mg oral tablet: 320 mg, 1 tab(s), Oral, Daily, 0 Refill(s), Medications (1) Active Scheduled: (0) Continuous: (1) Lactated Ringers 1,000 mL 1,000 mL, Intravenous, 50 mL/hr PRN: (0) Problem list: Medical Memory loss / SNOMED CT 59426693 / Confirmed Hypertension / SNOMED CT 8386043159 / Confirmed COPD with emphysema / SNOMED CT 898044909 / Confirmed, Active Problems (14) Afib Alzheimer disease CHF (congestive heart failure) COPD (chronic obstructive pulmonary disease) COPD with emphysema DM2 (diabetes mellitus, type 2) GERD (gastroesophageal reflux disease) GIB (gastrointestinal bleeding) HTN (hypertension) Hypertension Memory loss Oxygen dependent Pulmonary hypertension Sleep apnea with use of nocturnal bilevel positive airway pressure (BPAP) Histories Past Medical History: Resolved COVID ([id number]): Resolved. Family History: Diabetes mellitus type 2 Mother Father Brother CAD - Coronary artery disease Mother Procedure history: Colonoscopy ([id number]) on 02/11/2022 at 71 Years. Placement of stent in cardiac conduit ([id number]) in 2017 at 67 Years. History of right hip replacement ([id number]). EGD (esophagogastroduodenoscopy) gastric outlet reduction (1269113264). History of revision of right total hip arthroplasty ([id number]). Social History Social & Psychosocial Habits Alcohol 12/17/2021 Use: Past Substance Abuse 12/17/2021 Use: Never Tobacco 12/17/2021 Tobacco Use: Former smoker, quit more Tobacco use per day: 40 Started at age: 14 Years Stopped at age: 58 Years . Physical Examination Vital Signs 02/11/2022 9:50 EDT Heart Rate Monitored 56 bpm bpm Respiratory Rate 11 br/min br/min 02/11/2022 9:45 EDT Heart Rate Monitored 57 bpm bpm Respiratory Rate 13 br/min br/min Systolic Blood Pressure NBP 123 mmHg mmHg Diastolic Blood Pressure NBP 68 mmHg mmHg 02/11/2022 9:40 EDT Heart Rate Monitored 67 bpm bpm Respiratory Rate 13 br/min br/min Systolic Blood Pressure NBP 123 mmHg mmHg Diastolic Blood Pressure NBP 72 mmHg mmHg 02/11/2022 9:36 EDT Systolic Blood Pressure NBP 137 mmHg mmHg Diastolic Blood Pressure NBP 69 mmHg mmHg 02/11/2022 9:35 EDT Heart Rate Monitored 51 bpm bpm Respiratory Rate 22 br/min br/min 02/11/2022 8:36 EDT Temperature Temporal Artery 36.4 DegC Apical Heart Rate 52 bpm LOW Respiratory Rate 15 br/min Systolic BP Left Arm 153 mmHg HI Diastolic BP Left Arm 70 mmHg Vital Signs(last 24 hrs) Last Charted Heart Rate Flukvdeao10 bpm (FEB 11 09:50) Resp Rate 11 br/min (FEB 11 09:50) [id number] mmHg (FEB 11 09:45) DBP68 mmHg (FEB 11 09:45) Measurements from flowsheet : Measurements 02/11/2022 8:36 EDT Height 170 cm Admission Weight 102 kg Weight Method Stated [place] Body Weight 65.94 kg Pain assessment: Pain Assessment 02/11/2022 8:36 EDT Primary Pain Intensity 0 Pain Scale Type 0-10 Pain scale . General: Alert and oriented. Airway: Normal temporomandibular joint mobility, Normal mouth. Mallampati classification: III (soft palate, base of uvula visible). Dentition Evaluation: Dentures, lower, Dentures, upper. Respiratory: Respirations are non-labored, his normal. Cardiovascular: Normal rate. Neurologic: Alert, Oriented. Review / Management Results review: No qualifying data available , Lab results 02/11/2022 9:53 EDT Anesthesiology Consultation Postanesthesia Evaluation* 02/11/2022 9:51 EDT SN - CTm - Anesthesia Stop Time Anesthesia Stop Anesthesia Final Record 02/11/2022 9:51 EDT Lactated Ringers Injection 100 mL mL [facility] Procedure Record [facility] Procedure Record 02/11/2022 9:50 EDT SN - Proc - Actual Procedure COLONOSCOPY WITH POLYPECTOMY (Modified) 02/11/2022 9:50 EDT SN - Cul - Culture Type Tissue in Formalin SN - Cul - Kind Specimen 02/11/2022 9:50 EDT Heart Rate Monitored 56 bpm bpm Respiratory Rate 11 br/min br/min Oxygen Saturation 98.5 % % 02/11/2022 9:45 EDT Heart Rate Monitored 57 bpm bpm Respiratory Rate 13 br/min br/min Systolic Blood Pressure NBP 123 mmHg mmHg Diastolic Blood Pressure NBP 68 mmHg mmHg Oxygen Saturation 98.5 % % 02/11/2022 9:44 EDT propofol 50 mg mg 02/11/2022 9:40 EDT Heart Rate Monitored 67 bpm bpm Respiratory Rate 13 br/min br/min Systolic Blood Pressure NBP 123 mmHg mmHg Diastolic Blood Pressure NBP 72 mmHg mmHg Oxygen Saturation 98.1 % % 02/11/2022 9:38 EDT SN - GCD - ASA Class 3 02/11/2022 9:38 EDT SN - Proc - Anesthesia Type MAC SN - Proc - EBL 0 mL 02/11/2022 9:38 EDT glycopyrrolate 0.2 mg mg lidocaine 40 mg mg propofol 50 mg mg 02/11/2022 9:36 EDT SN - CTm - Anesthesia Start Time Anesthesia Start 02/11/2022 9:36 EDT Systolic Blood Pressure NBP 137 mmHg mmHg Diastolic Blood Pressure NBP 69 mmHg mmHg Lactated Ringers Injection Begin Bag 1,000 mL mL 02/11/2022 9:35 EDT Heart Rate Monitored 51 bpm bpm Respiratory Rate 22 br/min br/min Oxygen Saturation 95.2 % % 02/11/2022 9:27 EDT SN - PP - Body Position Lateral Right Side-up Standard Intra-op 02/11/2022 9:26 EDT SN - GCD - Post-operative Diagnosis HISTORY OF POLYPS, IRON DEFICIENCY ANEMIA SN - GCD - Case Level OPD Level 3 02/11/2022 9:26 EDT SN - CAt - Case Attendee SN - CAt - Case Attendee SN - CAt - Case Attendee SN - CAt - Case Attendee SN - CAt - Case Attendee SN - CAt - Case Attendee SN - CAt - Case Attendee SN - CAt - Case Attendee SN - CAt - Case Attendee SN - CAt - Case Attendee SN - CAt - Role Performed Primary Surgeon SN - CAt - Role Performed Legal Officer 1 SN - CAt - Role Performed Meatcutter SN - CAt - Role Performed BULLARD OPERATOR SN - CAt - Role Performed Meatcutter 02/11/2022 8:46 EDT Lactated Ringers Injection Begin Bag 1,000 mL mL 02/11/2022 8:36 EDT Designated Person #1 We May Share ESMER Chicas [phone] Designated Person #1 Relationship Spouse Privacy Restrictions Requested None Height 170 cm Admission Weight 102 kg Weight Method Stated [place] Body Weight 65.94 kg Temperature Temporal Artery 36.4 DegC Apical Heart Rate 52 bpm LOW Respiratory Rate 15 br/min Systolic BP Left Arm 153 mmHg HI Diastolic BP Left Arm 70 mmHg Primary Pain Intensity 0 Pain Scale Type 0-10 Pain scale Nail Bed Color [place] Heart Rhythm Regular Oxygen Therapy Room air Oxygen Saturation 94 % Abdomen Description Non-distended, Soft, Rounded Bowel Sounds All Quadrants Present Urinary Elimination Voiding, no difficulties Status N/A Skin Description Normal for ethnicity Skin Integrity Intact IV Present Present Hand Right 02/11/2022 22 gauge Peripheral IV Activity: Insert new site Peripheral IV Dressing Condition: Clean, Dry, Intact Peripheral IV Dressing Activity: Applied, Transparent dressing Peripheral IV Line Status/Patency: Flushes easily Peripheral IV Line Care: Secured with tape Peripheral IV Equipment: Extension set Peripheral IV Number of Attempts: 1 Characteristics of Speech Clear Level of Consciousness Alert Affect/Behavior Appropriate Orientation Oriented x 4, Forgetful Sensory Deficits None, Hearing deficit, left ear, Hearing deficit, right ear Sleep Apnea Snore Yes Sleep Apnea Tired No Sleep Apnea Obstruction Yes Sleep Apnea Pressure Yes Sleep Apnea BMI Yes Sleep Apnea Age Yes Sleep Apnea Neck Yes Sleep Apnea Gender Yes Sleep Apnea Score 7 >HHI High Risk for Sleep Apnea Yes Diagnosed With Sleep Apnea Yes Advanced Directives Yes Advance Directive Type [place] Durable Power of Peanut Blancher for [place], [place] Declaration (Living Will) Advance Directive Location Unable to obtain copy Infectious Disease Symptoms Patient states no symptoms Infectious Disease Recent Exposure No Alcohol and Drug Use No Employee of Institutional Living No Health Care Employee No History of Exposure to TB No History of Positive Chest X-Ray for TB No History of Positive TB Skin Test No Homeless No Known Immunosuppression No Recent Immigrant No Resident of Institutional Living No Bloody Sputum No Fatigue No Fever No Loss of Appetite No Night Sweats No Persistent Cough > 3 Weeks No Weight Loss No Allergies 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 Colon Prep Results Excellent Consent Form Signed Yes Patient Dressed In Hospital gown Pre-op Preparation Dentures not removed History & Physical Update On Chart Yes History & Physical On Chart Yes Bowel Prep Completed Yes Obstructive Sleep Apnea Assess Completed Yes Orientation Assessment Oriented x 4 Safety Brochure Information Reviewed Yes George Majano Video Viewed No Barriers to Learning Memory problems Teaching Method Explanation Teaching Evaluation No further teaching needed Preferred Written Language Citizen Of [place] Preferred Spoken Language Citizen Of [place] Information Given by Spouse Patient's Current Physicians patrick- pcp Discharge To, Anticipated Home with family care Activity Status ADL Awake, Repositions self NPO Status Maintained, Less than 8 hours Standard Safety ID band on, Allergy Band on, Call device within reach, Bed in low position, Wheels locked, Visitor at bedside, Safety level maintained Prev Test Positive/Diagnosis w/COVID-19 Yes Previous COVID-19 Positive Date 05/2021 Current Quarantine/Isolated any Illness No Any Contact with Sick Animals/Birds No Traveled Anywhere in Last 30 Days No Allergy Band on and Verified Yes Patient ID Band on and Verified Yes Implants Verified Yes Pacemaker/AICD Verified No Anesthesia Consent Signed Yes Last Fluid Intake 02/11/2022 6:00 Last Food Intake 02/10/2022 8:00 Last Void 02/11/2022 8:00 Lost Weight Unintentionally Recently No Eat Poorly Due to Decreased Appetite No Total MST Score 0 N/A Personal Devices, Patient Valuables Dentures, lower, Dentures, upper Anesthesia/Transfusions Prior anesthesia Admission Note-Nursing Same Day Patient History . Assessment and Plan [place] [employer]esthesi[employer] (ASA) physical status classification: Class III. Anesthetic Preoperative Plan Anesthetic technique: MAC. Informed consent: signed by patient. Digitally Signed by YRN HOANG APRN-JOSE DAVID on 02/11/2022 09:55 AM [facility] 02-11-2022 Anesthesiology Consult note Patient: ESTEFANY PEPPER Age: 71 years Sex: Male : 1950 Associated Diagnoses: None Author: YRN HOANG Assessment Postanesthesia assessment Vitals: Vital signs from flowsheet : Vital Signs 02/11/2022 9:50 EDT Heart Rate Monitored 56 bpm bpm Respiratory Rate 11 br/min br/min 02/11/2022 9:45 EDT Heart Rate Monitored 57 bpm bpm Respiratory Rate 13 br/min br/min Systolic Blood Pressure NBP 123 mmHg mmHg Diastolic Blood Pressure NBP 68 mmHg mmHg 02/11/2022 9:40 EDT Heart Rate Monitored 67 bpm bpm Respiratory Rate 13 br/min br/min Systolic Blood Pressure NBP 123 mmHg mmHg Diastolic Blood Pressure NBP 72 mmHg mmHg 02/11/2022 9:36 EDT Systolic Blood Pressure NBP 137 mmHg mmHg Diastolic Blood Pressure NBP 69 mmHg mmHg 02/11/2022 9:35 EDT Heart Rate Monitored 51 bpm bpm Respiratory Rate 22 br/min br/min 02/11/2022 8:36 EDT Temperature Temporal Artery 36.4 DegC Apical Heart Rate 52 bpm LOW Respiratory Rate 15 br/min Systolic BP Left Arm 153 mmHg HI Diastolic BP Left Arm 70 mmHg , Measurements from flowsheet . Mental status: alert & oriented x 4. Respiratory function: respirations are non-labored. Respiratory support: none. CV function: Normal rate. Cardiovascular support: none. Pain. Nausea status: see nursing documentation of medications. Postoperative hydration status: within normal limits. Digitally Signed by YRN HOANG on 02/11/2022 09:54 AM [facility] ADMISSION HISTORY AN D PHYSICIAL CHIEF COMPLAINT: HISTORY OF PRESENT ILLNESS: REVIEW OF SYSTEMS: ACTIVE PROBLEMS: (13) Afib ([id number]) CHF (congestive heart failure) (95097890) COPD (chronic obstructive pulmonary disease) (95003440) COPD with emphysema (082608780) DM2 (diabetes mellitus, type 2) (637493023) GERD (gastroesophageal reflux disease) (798209137) GIB (gastrointestinal bleeding) (482539374) HTN (hypertension) (1864846642) Hypertension (2448766459) Memory loss (02132043) Oxygen dependent (6151832638) Pulmonary hypertension (200284849) Sleep apnea with use of nocturnal bilevel positive airway pressure (BPAP) (768637876) MEDICATIONS: Active Inpt Meds: None Active PRN Meds: None One Time Meds: None Active IV Meds: Lactated Ringers Infusion 1,000 mL (LR 1,000 mL) Start: 12/17/21 7:39:00 EDT, Rate: 50 mL/hr, 12/17/21 7:39:00 EDT ALLERGIES: (3) doxycycline Jardiance lisinopril FAMILY HISTORY: SOCIAL HISTORY: PHYSICAL EXAM: VITALS: OcdmrhKnboGVHijmuFPIiZ7ONV2OskmMv(kg) 12/17 07:2735.9103/[id number]/92889.0 24 Hr Tmax: 35.9 at 12/17 07:27 36 Hr Tmax: 35.9 at 12/17 07:27 Vital Signs are the last 5 in the past 48 hours. Weights display the last 5 within 7 days. Initial Wt: 12/17 102.0 kg 224 lb Current Wt: 12/17 102.0 kg 224 lb GENERAL: HEENT: CARDIOVASCULAR: RESPIRATORY: ABDOMEN: EXREMETIES: NEUROLOGICAL: PSYCHIATRIC: LABS: 36hr Labs 12/17 0727 Blood Glucose, [id number] Blood Glucose, [id number] DIAGNOSTICS: IMPRESSION: PLAN: History and Physical Update I have examined the patient; reviewed the H&P and there are no changes to the H&P unless noted below. [facility] 06-06-2022 Hospital Discharge instructions Patient Education 12/17/2021 08:55:28 Monitored Anesthesia Care, Care After Monitored Anesthesia Care, Care After These instructions provide you with information about caring for yourself after your procedure. Your health care provider may also give you more specific instructions. Your treatment has been plannedaccording to current medical practices, but problems sometimes occur. Call your health care provider if you have any problems or questions after your procedure. What can I expect after the procedure? After your procedure, you may: Feel sleepy for several hours. Feel clumsy and have poor balance for several hours. Feel forgetful about what happened after the procedure. Have poor judgment for several hours. Feel nauseous or vomit. Have a sore throat if you had a breathing tube during the procedure. Follow these instructions at home: For at least 24 hours after the procedure: Have a responsible adult stay with you. It is important to have someone help care for you until youare awake and alert. Rest as needed. Do not: ?Participate in activities in which you could fall or become injured. ?Drive. ?Use heavy machinery. ?Drink alcohol. ?Take sleeping pills or medicines that cause drowsiness. ?Make important decisions or sign legal documents. ?Take care of children on your own. Eating and drinking Follow the diet that is recommended by your health care provider. If you vomit, drink water, juice, or soup when you can drink without vomiting. Make sure you have little or no nausea before eating solid foods. General instructions Take ojej-kon-mzctuov and prescription medicines only as told by your health care provider. If you have sleep apnea, surgery and certain medicines can increase your risk for breathing problems. Follow instructions from your health care provider about wearing your sleep device: ?Anytime you are sleeping, including during daytime naps. ?While taking prescription pain medicines, sleeping medicines, or medicines that make you drowsy. If you smoke, do not smoke without supervision. Keep all follow-up visits as told by your health care provider. This is important. Contact a health care provider if: You keep feeling nauseous or you keep vomiting. You feel light-headed. You develop a rash. You have a fever. Get help right away if: You have trouble breathing. Summary For several hours after your procedure, you may feel sleepy and have poor judgment. Have a responsible adult stay with you for at least 24 hours or until you are awake and alert. This information is not intended to replace advice given to you by your health care provider. Make sure you discuss any questions you have with your health care provider. Document Released: 10/20/2016 Document Revised: 09/28/2018 Document Reviewed: 10/20/2016 [employer] Patient Education 2020 [employer]. 12/17/2021 08:55:28 Duodenal Biopsy, Care After Duodenal Biopsy, Care After This sheet gives you information about how to care for yourself after your procedure. Your health care provider may also give you more specific instructions. If you have problems or questions, contact your health care provider. What can I expect after the procedure? After the procedure, it is common to have: A sore throat. Bloating. A small amount of dark blood in your stool. Follow these instructions at home: Medicines Take cdok-lfj-lrywbhb and prescription medicines only as told by your health care provider. Do not drive for 24 hours if you were given a sedative during your procedure. Eating and drinking Follow instructions from your health care provider about what to eat or drink after your procedure. Do not drink alcohol for 24 hours after your procedure. General instructions Return to your normal activities as told by your health care provider. Ask your health care provider what activities are safe for you. It is up to you to get the results of your procedure. Ask your health care provider, or the department that is doing the procedure, when your results will be ready. Keep all follow-up visits as told by your health care provider. This is important. Contact a health care provider if you have: A fever. Pain in the abdomen. Nausea or vomiting. A cough. Get help right away if: You vomit blood or your vomit looks like coffee grounds. You have: ?Severe pain in the abdomen. ?Bright red blood in your stool. ?Blood clots in your stool. ?Chest pain. ?Difficulty breathing. Summary After your procedure, it is common to have a sore throat, bloating, and a small amount of dark blood in your stool. It is up to you to get the results of your procedure. Ask your health care provider, or the department that is doing the procedure, when your results will be ready. Contact your health care provider if you have a fever, pain in the abdomen, nausea or vomiting, or a cough. Get help right away if you vomit blood or your vomit looks like coffee grounds, or if you have severe pain in the abdomen, bright red blood or blood clots in your stool, chest pain, or difficulty breathing. This information is not intended to replace advice given to you by your health care provider. Make sure you discuss any questions you have with your health care provider. Document Released: 07/26/2016 Document Revised: 02/16/2019 Document Reviewed: 02/16/2019 [employer] Patient Education 2020 [employer]. 12/17/2021 08:55:28 Helicobacter Pylori Antibodies Test Helicobacter Pylori Antibodies Test Why am I having this test? This test is used to check for a type of bacteria called Helicobacter pylori (H. pylori). H. pylorican be found in the cells that line the stomach. Having high levels of H. pylori in your stomach puts you at risk for: Stomach ulcers and small bowel ulcers. Long-term (chronic) inflammation of the lining of the stomach. Ulcers in the part of the body that moves food from the mouth to the stomach (esophagus). Stomach cancer if the infection is not treated. Most people with H. pylori in their stomach have no symptoms. Your health care provider may ask youto have this test if you have symptoms of a stomach ulcer or small bowel ulcer, such as stomach pain before or after eating, heartburn, or nausea after eating. What is being tested? This test checks your blood for antibodies to the H. pylori bacteria. Antibodies are proteins made by your immune system to fight germs and infection. The test checks for antibodies that the immune system produces in response to infection with H. pylori. What kind of sample is taken? A blood sample is required for this test. It is usually collected by inserting a needle into a blood vessel or by sticking a finger with a small needle. Tell a health care provider about: All medicines you are taking, including vitamins, herbs, eye drops, creams, and ukfh-hdy-oxwxbrb medicines. How are the results reported? Your test results will be reported as values that are categorized as positive, negative, or equivocal. Equivocal means that your results are neither positive nor negative. Your health care provider will compare your results to normal ranges that were established after testing a large group of people (reference ranges). Reference ranges may vary among labs and hospitals. For this test, common reference ranges for the two types of antibodies that may be tested are: IgG antibodies: ?Less than 0.75 units/mL. This is negative. ?Greater than or equal to 1 unit/mL. This is positive. ?0.75 0.99 units/mL. This is equivocal. IgM antibodies: ?Less than or equal to 30 units/mL. This is negative. ?Greater than or equal to 40 units/mL. This is positive. ?30.01 39.99 units/mL. This is equivocal. What do the results mean? Test results that are higher than normal, or positive, may indicate various health conditions, suchas: Short-term or long-term irritation of the stomach lining (gastritis). Small bowel ulcer. Stomach ulcer. Stomach cancer. Talk with your health care provider about what your results mean. Questions to ask your health care provider Ask your health care provider, or the department that is doing the test: When will my results be ready? How will I get my results? What are my treatment options? What other tests do I need? What are my next steps? Summary This test is used to check for a type of bacteria called Helicobacter pylori (H. pylori). Having high levels of H. pylori in your stomach puts you at risk for ulcers in the gastrointestinal tract or stomach cancer. This test checks your blood for antibodies to the H. pylori bacteria. Most people with H. pylori in their stomach have no symptoms. Your health care provider may ask youto have this test if you have symptoms of a stomach ulcer or small bowel ulcer, such as stomach pain before or after eating, heartburn, or nausea after eating. Talk with your health care provider about what your results mean. This information is not intended to replace advice given to you by your health care provider. Make sure you discuss any questions you have with your health care provider. Document Released: 07/24/2005 Document Revised: 06/12/2018 Document Reviewed: 02/10/2018 [employer] Patient Education 2020 [employer]. 12/17/2021 08:55:28 9 - AO Minor Esophagogastroduodenoscopy (09/24) (Custom) Esophagogastroduodenoscopy This is an endoscopic procedure (a procedure that uses a device like a flexible telescope) that allows your caregiver to view the upper stomach and small bowel. This test allows your caregiver to look at the esophagus. The esophagus carries food from your mouth to your stomach. They can also look at your duodenum. This is the first part of the small intestine that attaches to the stomach. This test is used to detect problems in the bowel such as ulcers and inflammation. MEANING OF TEST Your caregiver will go over the test results with you and discuss the importance and meaning of your results, as well as treatment options and the need for additional tests if necessary. OBTAINING THE TEST RESULTS Your caregiver s office will call you with the results of the test. POST SEDATION INSTRUCTIONS Rest at home today. Since your coordination may be impaired, be cautious on stairways, do not drive any vehicle or operate any heavy machinery, or use any sharp instruments for the remainder of the day. Do not drink any alcoholic beverages or make any major decisions for 24 hours. POST PROCEDURE INSTRUCTIONS Progress slowly with full liquids then resume previous diet and medications. Belching or passing of gas is to be expected. Notify the physician if you have severe chest pain, fever, or if difficulty when swallowing persists. 09/21/13 Custom Follow Up Care 12/12/2021 12:26:25 With:SHAUN BOOGIE MD Address: [address] [address] [place] [address]- [phone] When: Unknown Comments:office will call with biopsy results [facility] Evaluation + Plan note Future Appointments Appointment Date:10/22/2022 11:30:00 AM Scheduled Provider: Location:Heart Lab Appointment Type:CV Procedure - Heart Lab/Hybrid OR [facility] Evaluation + Plan note Future Appointments Appointment Date:11/15/2022 01:00:00 PM Scheduled Provider:TED SKY Location:[facility] Appointment Type:CV OV Structural Heart [facility] Hospital course Narrative No data available for this section [facility] Hospital Discharge instructions No data available for this section [facility] Note* RYLEE LARA MD: SIGN, VERIFY Event Display: Left Atrial Closure Device-CV [facility] Progress note No data available for this section [facility] Summary Purpose Family History No Family History Records FoundNo Family History Records Found Advance Directives No Advanced Directives Records FoundNo Advanced Directives Records Found Additional Source Comments (unrecognized sect ion and content) No Status Records FoundNo Status Records Found INFORMATION SOURCE (unrecogn ized section and content) DATE CREATED AUTHOR AUTHOR'S ORGANIZ ATION 12/20/2022 [facility] ([place]) Care Team (unrecognized sect ion and content) Personnel Name: VIRAJ RAMIREZ DO Address: [address] [place] [address] Care Team Personnel Name: IRMA ORR MD Member Role: Primary Care Physician Address: Address: [address] [address]- [place] Care Team Related Persons Name: DANIEL PEPPER Address: Home [address] [place] [address] [place], [place] [phone] Care Team Personnel Name: IRMA ORR MD Member Role: Primary Care Physician Address: Address: [address] [place] [address]- [place] Care Team Related Persons Name: DANIEL PEPPER Address: Home [address] [place] [address] [place], [place] [id number] Care Team (unrecognized sect ion and content) Care Team Personnel Name: VIRAJ RAMIREZ DO Position: P4 Physician - Primary Care Member Role: Primary Care Physician Address: Address: [address] [place] [address] Care Team Related Persons Name: DANIEL PEPPER Address: [address] [place], [phone] FOR RECORDS PERTAINING TO PATIENTS WHO ARE OR HAVE BEEN ENROLLED IN A CHEMICAL DEPENDENCY/SUBSTANCEABUSE PROGRAM, SOME INFORMATION MAY BE OMITTED. This clinical summary was aggregated from multiple sources. Caution should be exercised in using it in the provision of clinical care. This summary normalizes information from multiple sources, and as a consequence, information in this document may materially change the coding, format and clinical context of patient data. In addition, data may be omitted in some cases. CLINICAL DECISIONS SHOULD BE BASED ON THE PRIMARY CLINICAL RECORDS. [employer] provides no warranty or guarantee of the accuracy or completeness of information in this document.
[2023-07-09 21:27] LABS: Bedside Glucose 313 mg/dL (74-106)
--- OUTSIDE RECORDS SUMMARY | 2023-07-09 21:40 | XMS RPT_ITS | CCD ---
Author Name Unknown Address [address] [place] [address] Organization [facility] Care Team Providers Care Certified Peer Specialist Name Role Phone ClaradeweylachelleSaida [facility] Viraj Emery DO, ANTHONY Primary Care Physicia [...] Drug Allergy Eruption of skin (disorder) [facility] Work Phone: (4 sources) empagliflozin; Translations: [empagliflozin] Drug Allergy Shira infection of genital region (disorder) [facility] Work Phone: (4 sources) Lisinopril; Translations: [lisinopril] Drug Allergy Chronic cough (finding) [facility] Work Phone: Medications Current Medications Medication [...] Heart rate 58 /min RYLEE LARA MD [facility] 10-23-2022 08:29-0400 Heart rate 55 /min RYLEE LARA MD [facility] 10-23-2022 07:32-0400 Body temperature 97.7 [degF] RYLEE LARA MD [facility] 10-23-2022 07:32-0400 Diastolic Blood Pressure Non-Invasive 61 1 RYLEE LARA MD [facility] 10-23-2022 07:32-0400 Heart rate 82 /min RYLEE LARA MD [facility] 10-23-2022 07:32-0400 Mean blood pressure 92 mm[Hg] RYLEE LARA MD [address] [place] [address] 10-23-2022 07:32-0400 Reason For Taking VItal Signs RYLEE LARA MD [address] [place] [address] 10-23-2022 07:32-0400 Respiratory rate 20 /min RYLEE LARA MD [address] [place] [address] 10-23-2022 07:32-0400 Systolic Blood Pressure Non-Invasive 165 1 RYLEE LARA MD [address] [place] [address] 10-23-2022 07:24-0400 Heart rate 51 /min RYLEE LARA MD [address] [place] [address] 10-23-2022 07:24-0400 Respiratory rate 20 /min RYLEE LARA MD [address] [place] [address] 10-23-2022 04:43-0400 Body temperature 97.88 [degF] RYLEE LARA MD [address] [place] [address] 10-23-2022 04:43-0400 Diastolic Blood Pressure Non-Invasive 67 1 RYLEE LARA MD [address] [place] [address] 10-23-2022 04:43-0400 Heart rate 62 /min RYLEE LARA MD [address] [place] [address] 10-23-2022 04:43-0400 Mean blood pressure 96 mm[Hg] RYLEE LARA MD [address] [place] [address] 10-23-2022 04:43-0400 Respiratory rate 16 /min RYLEE LARA MD [address] [place] [address] 10-23-2022 04:43-0400 Systolic Blood Pressure Non-Invasive 167 1 RYLEE LARA MD [address] [place] [address] 10-22-2022 23:40-0400 Body temperature 97.88 [degF] RYLEE LARA MD [address] [place] [address] 10-22-2022 23:40-0400 Diastolic Blood Pressure Non-Invasive 72 1 RYLEE LARA MD [address] [place] [address] 10-22-2022 23:40-0400 Mean blood pressure 101 mm[Hg] RYLEE LARA MD [address] [place] [address] 10-22-2022 23:40-0400 Systolic Blood Pressure Non-Invasive 167 1 RYLEE LARA MD [address] [place] [address] 10-22-2022 19:30-0400 Reason For Taking VItal Signs RYLEE LARA MD [address] [place] [address] 10-22-2022 18:59-0400 Heart rate 47 /min RYLEE LARA MD [address] [place] [address] 10-22-2022 18:51-0400 Reason For Taking VItal Signs RYLEE LARA MD [address] [place] [address] 10-22-2022 14:47-0400 Heart rate 45 /min RYLEE LARA MD [address] [place] [address] 10-22-2022 13:09-0400 Diastolic blood pressure 57 mm[Hg] RYLEE LARA MD [address] [place] [address] 10-22-2022 13:09-0400 Systolic blood pressure 127 mm[Hg] RYLEE LARA MD [address] [place] [address] 10-22-2022 12:40-0400 Diastolic blood pressure 58 mm[Hg] RYLEE LARA MD [address] [place] [address] 10-22-2022 12:40-0400 Systolic blood pressure 137 mm[Hg] RYLEE LARA MD [address] [place] [address] 10-22-2022 12:04-0400 Diastolic blood pressure 52 mm[Hg] RYLEE LARA MD [address] [place] [address] 10-22-2022 12:04-0400 Mean blood pressure 78 mm[Hg] RYLEE LARA MD [address] [place] [address] 10-22-2022 12:04-0400 Systolic blood pressure 132 mm[Hg] RYLEE LARA MD [address] [place] [address] 10-22-2022 11:35-0400 Mean blood pressure 85 mm[Hg] RYLEE LARA MD [address] [place] [address] 10-22-2022 11:05-0400 Mean blood pressure 85 mm[Hg] RYLEE LARA MD [address] [place] [address] 10-22-2022 10:15-0400 Respiratory Rate - Anes 0 br/min RYLEE LARA MD [address] [place] [address] 10-22-2022 10:10-0400 Respiratory Rate - Anes 0 br/min RYLEE LARA MD [address] [place] [address] 10-22-2022 10:05-0400 Respiratory Rate - Anes 0 br/min RYLEE LARA MD [address] [place] [address] 10-22-2022 09:50-0400 Body temperature 93.87 [degF] RYLEE LARA MD [address] [place] [address] 10-22-2022 09:45-0400 Body temperature 94.24 [degF] RYLEE LARA MD [address] [place] [address] 10-22-2022 09:40-0400 Body temperature 94.17 [degF] RYLEE LARA MD [address] [place] [address] 10-22-2022 05:46-0400 Blood Pressure Cuff Size RYLEE LARA MD [address] [place] [address] 10-22-2022 05:46-0400 Blood Pressure Location RYLEE LARA MD [address] [place] [address] 10-22-2022 05:46-0400 Blood Pressure Method RYLEE LARA MD [address] [place] [address] 10-22-2022 05:46-0400 Body height 170 cm RYLEE LARA MD [address] [place] [address] 04-11-2023 05:46-0400 Body weight 99.3 kg RYLEE LARA MD [address] [place] [address] 10-22-2022 05:46-0400 Body weight 34.36 kg/m2 RYLEE LARA MD [address] [place] [address] 10-15-2022 08:16-0400 Blood Pressure Cuff Size RYLEE LARA MD [address] [place] [address] 10-15-2022 08:16-0400 Blood Pressure Location RYLEE LARA MD [address] [place] [address] 10-15-2022 08:16-0400 Blood Pressure Method RYLEE LARA MD [address] [place] [address] 10-15-2022 08:16-0400 Body height 169 cm RYLEE LARA MD [address] [place] [address] 10-15-2022 08:16-0400 Body temperature 97.88 [degF] RYLEE LARA MD [address] [place] [address] 10-15-2022 08:16-0400 Body weight 99.6 kg RYLEE LARA MD [address] [place] [address] 10-15-2022 08:16-0400 Diastolic Blood Pressure Non-Invasive 70 1 RYLEE LARA MD [address] [place] [address] 10-15-2022 08:16-0400 Heart rate 64 /min RYLEE LARA MD [address] [place] [address] 10-15-2022 08:16-0400 Systolic Blood Pressure Non-Invasive 121 1 RYLEE LARA MD [address] [place] [address] 02-11-2022 10:16-0400 Diastolic Blood Pressure NBP [address] SHAUN BOOGIE MD [facility] 02-11-2022 10:16-0400 Heart rate 61 /min DR SHAUN BOOGIE MD [facility] 02-11-2022 10:16-0400 Respiratory rate 17 /min DR SHAUN BOOGIE MD [facility] 02-11-2022 10:16-0400 Systolic Blood Pressure NBP [address] SHAUN BOOGIE MD [facility] 02-11-2022 10:10-0400 Diastolic Blood Pressure NBP [address] SHAUN BOOGIE MD [facility] 02-11-2022 10:10-0400 Heart rate 63 /min DR SHAUN BOOGIE MD [facility] 02-11-2022 10:10-0400 Respiratory rate 14 /min DR SHAUN BOOGIE MD [facility] 02-11-2022 10:10-0400 Systolic Blood Pressure NBP [address] SHAUN BOOGIE MD [facility] 02-11-2022 10:02-0400 Diastolic Blood Pressure NBP [address] SHAUN BOOGIE MD [facility] 02-11-2022 10:02-0400 Heart rate 63 /min DR SHAUN BOOGIE MD [facility] 02-11-2022 10:02-0400 Respiratory rate 17 /min DR SHAUN BOOGIE MD [facility] 02-11-2022 10:02-0400 Systolic Blood Pressure NBP [address] SHAUN BOOGIE MD [facility] 02-11-2022 08:36-0400 Body height [address] SHAUN BOOGIE MD [facility] 02-11-2022 08:36-0400 Body temperature 97.52 [degF] DR SHAUN BOOGIE MD [facility] 02-11-2022 08:36-0400 Body weight [address] SHAUN BOOGIE MD [facility] 02-11-2022 08:36-0400 diastolic 70 mm[Hg] DR SHAUN BOOGIE MD [facility] 02-11-2022 08:36-0400 Heart rate 52 /min DR SHAUN BOOGIE MD [facility] 02-11-2022 08:36-0400 systolic 153 mm[Hg] DR SHAUN BOOGIE MD [facility] 12-17-2021 09:02-0400 Diastolic Blood Pressure NBP [address] SHAUN BOOGIE MD [facility] 12-17-2021 09:02-0400 Heart rate 56 /min DR SHAUN BOOGIE MD [facility] 12-17-2021 09:02-0400 Respiratory rate 15 /min DR SHAUN BOOGIE MD [facility] 12-17-2021 09:02-0400 Systolic Blood Pressure NBP [address] SHAUN BOOGIE MD [facility] 12-17-2021 08:46-0400 Diastolic Blood Pressure NBP [address] SHAUN BOOGIE MD [facility] 12-17-2021 08:46-0400 Heart rate 59 /min DR SHAUN BOOGIE MD [facility] 12-17-2021 08:46-0400 Respiratory rate 14 /min DR SHAUN BOOGIE MD [facility] 12-17-2021 08:46-0400 Systolic Blood Pressure NBP [address] SHAUN BOOGIE MD [facility] 12-17-2021 08:35-0400 Diastolic Blood Pressure NBP [address] SHAUN BOOGIE MD [facility] 12-17-2021 08:35-0400 Heart rate 57 /min DR SHAUN BOOGIE MD [facility] 12-17-2021 08:35-0400 Respiratory rate 16 /min DR SHAUN BOOGIE MD [facility] 12-17-2021 08:35-0400 Systolic Blood Pressure NBP [address] SHAUN BOOGIE MD [facility] 12-17-2021 07:27-0400 Body height [address] SHAUN BOOGIE MD [facility] 12-17-2021 07:27-0400 Body temperature 96.62 [degF] DR SHAUN BOOGIE MD [facility] 12-17-2021 07:27-0400 Body weight [address] SHAUN BOOGIE MD [facility] 12-17-2021 07:27-0400 Body weight 35.29 kg/m2 DR SHAUN BOOGIE MD [facility] 12-17-2021 07:27-0400 Diastolic blood pressure 56 mm[Hg] DR SHAUN BOOGIE MD [facility] 12-17-2021 07:27-0400 Heart rate 56 /min DR SHAUN BOOGIE MD [facility] 12-17-2021 07:27-0400 Systolic blood pressure 103 mm[Hg] DR SHAUN BOOGIE MD [facility] Encounters Encounter Date Encounter Type Care Provider Facility Start: 11-28-2022 End: 11-28-2022 ambulatory RYLEE LARA MD Facility:A Start: 10-22-2022 End: 10-23-2022 Evaluation and management of inpatient RYLEE LARA MD Facility:A Start: 10-22-2022 End: 10-23-2022 Evaluation and management of inpatient RYLEE LARA MD [facility] Start: 10-15-2022 End: 10-16-2022 ambulatory RYLEE LARA MD Facility:A Start: 10-15-2022 End: 10-15-2022 Admission to establishment RYLEE LARA MD [facility] Start: 02-11-2022 End: 02-12-[address] SHAUN BOOGIE MD Facility:B Start: 02-11-2022 End: 02-11-[address] SHAUN BOOGIE MD [facility] Start: 12-17-2021 End: 12-17-[address] SHAUN BOOGIE MD [facility] Start: 05-08-2017 Tobin Cintron [facility] Facility:[facility] Procedures Date Procedure Procedure Detail Performing Clinician Start: 02-11-[address] SHAUN BOOGIE MD Start: 06-02-2021 CT angiography of ch est with contrast RYLEE LARA MD Immunizations Immunization Date Immunization Notes Care Provider Fa cility 04-13-2022 influenza virus vacc ine, unspecified formulation RYLEE LARA MD [facility] 04-13-2022 SARS-CoV-2 mRNA (tozinameran) vaccine RYLEE LARA MD [facility] 10-31-2021 SARS-CoV-2 mRNA (xewfurlhndh-gnot-xsxeexf ) vaccine RYLEE LARA MD [facility] 05-10-2021 influenza virus vacc ine, unspecified formulation RYLEE LARA MD [facility] 11-30-2020 SARS-CoV-2 (COVID-19 ) mRNA-1273 vaccine RYLEE LARA MD [facility] 11-02-2020 SARS-CoV-2 (COVID-19 ) mRNA-1273 vaccine RYLEE LARA MD [facility] 05-03-2020 influenza virus vacc ine, unspecified formulation RYLEE LARA MD [facility] 04-09-2018 influenza virus vacc ine, unspecified formulation RYLEE LARA MD [facility] 04-10-2017 influenza virus vacc ine, unspecified formulation RYLEE LARA MD [facility] 10-10-2016 zoster vaccine, live RYLEE ZIMMERMAN MD [facility] 05-06-2016 influenza virus vacc ine, unspecified formulation RYLEE LARA MD [facility] 04-12-2016 pneumococcal polysaccharide vaccine, 23 valent RYLEE LARA MD [facility] 04-12-2016 tetanus toxoid, redu andrea diphtheria toxoid, and acellular pertussis vaccine, adsorbed RYLEE LARA MD [facility] 05-04-2015 influenza virus vacc ine, unspecified formulation RYLEE LARA MD [facility] 02-08-2015 pneumococcal conjuga te vaccine, 13 valent RYLEE LARA MD [facility] 04-21-2014 influenza virus vacc ine, unspecified formulation RYLEE LARA MD [facility] Payers Date Payer Category Payer Medicare [id number] 2022 Private Health Insurance [id number] 1950 Unknown [id number] 1950 Unknown [id number] [id number] 1950 Unknown [id number] [id number] 1950 Unknown [id number] [id number] Unknown [id number] Social History Date Type Detail Facility Start: 12-17-2021 Tobacco smoking status Ex-smoker (fi nding) [facility] Sex Assigned At Male [facility] Functional Status Date Assessment Result Facility 10-23-2022 Functional Status Single level home [facility] 10-23-2022 Functional Status [facility] 10-22-2022 Functional Status [facility] 10-22-2022 Functional Status [facility] 10-22-2022 Functional Status 100 [facility] 10-22-2022 Functional Status Lunch Percent 100 [facility] 10-22-2022 Functional Status Hospital bed [facility] 10-22-2022 Functional Status Maintained [facility] 10-15-2022 Functional Status Sensory Defici ts Hearing deficit, left ear, Hearing deficit, right ear [facility] 02-11-2022 Functional Status Precautions maintained [facility] 02-11-2022 Functional Status Maintained, Less than 8 hours [facility] 12-17-2021 Functional Status Patient Identi fied Identification band, Verbal [facility] 12-17-2021 Functional Status Maintained, More than 8 hours [facility] Mental Status Date Assessment Result Facility 10-23-2022 Mental Status Orientation Oriented x 4 [facility] 10-23-2022 Mental Status [facility] 10-22-2022 Mental Status [facility] 02-11-2022 Mental Status Oriented x 4, Forgetful [facility] 12-17-2021 Mental Status Oriented x 4 [facility] Clinical Notes 12-17-2021 to 10-23-2022 Note Date [...] including vitamins, herbs, eye drops, creams, and ywmz-pbb-jnzwtly medicines. Any problems you or family members [...] provider tells you to take them. ?Taking agcg-csg-xnmgzvc medicines, vitamins, herbs, and supplements. You may [...] X-ray dye out of your body. Take lqps-yxu-fqccjlj and prescription medicines only as told by [...] 11/11/2017 Document Revised: 06/12/2018 Document Reviewed: 11/11/2017 [employer] Patient Education 2020 [employer]. 10/23/2022 09:57:48 Left Atrial Appendage Closure Device [...] and water are not available, use hand elderly caregiver. ?Change your dressing as told by your [...] or bump that may develop. Medicines Take vqxf-mfu-ddbjrap and prescription medicines only as told by [...] 10/31/2017 Document Revised: 08/23/2019 Document Reviewed: 10/31/2017 [employer] Patient Education 2020 [employer] Follow Up Care 10/03/2022 10:08:38 With:TED SKY ANGER CONTROL COUNSELOR-HIDE STRETCHER HAND Address: [address] [place] [address] [address] [facility] [place] [address] [phone] When:11/15/2022 13:00:00 Comments:HOSPITAL FOLLOW-UP FROM [facility] 10-23-2022 Note Discharge Instructions Thank you for allowing [facility] to assist you with your healthcare needs. [...] the office with any questions or concerns [phone] (office) or Ted (nurse practitioner) [phone] Scheduled Follow-Up Appointments Appointment Type When With Where Contact InformationCV OV Structural Heart 11/15/2022 01:00 PM EDT TED SKY [facility] Follow Up Appointments Follow Up with TED SKY When 11/15/2022 01:00 PM EDT Why: HOSPITAL FOLLOW-UP FROM [facility] Where: [address] [facility] [place] [place] [address]- [phone] The Following Activity and Diet Have Been [...] Taking predniSONE (prednisone 10mg tab (TAPER)) Taper 48-36-59-30-20-10-5 x 1 day by mouth Once a [...] including vitamins, herbs, eye drops, creams, and yekp-hcv-amnupjw medicines. Any problems you or family members [...] tells you to take them. ? Taking wvuj-mpv-tqehdsv medicines, vitamins, herbs, and supplements. You may [...] X-ray dye out of your body. Take clet-xsb-uujufkl and prescription medicines only as told by [...] 11/11/2017 Document Revised: 06/12/2018 Document Reviewed: 11/11/2017 [employer] Patient Education 2020 [employer]. Left Atrial Appendage Closure Device Implantation, Care [...] and water are not available, use hand elderly caregiver. ? Change your dressing as told by [...] or bump that may develop. Medicines Take froo-enh-rnoftyd and prescription medicines only as told by [...] Document Reviewed: 10/31/2017 Else[employer] Patient Education 2020 [employer] Additional Information VACCINATE! IT SAVES LIVES! Members of the community who have not yet received the COVID-19 vaccine and would like to receive it can visit one of [facility] vaccine clinics. There are many vaccine clinic locations within the [facility]. For locations and available times, please visit [email or web address].o sdo.gov/. It is important to note that some COVID mobile vaccine clinics are held outdoors and may be canceled in rainy or stormy conditions. To learn more about pediatric vaccinations (ages 5-11), we invite you to visit the [facility] webpage. [email or web address] To learn more about the COVID-19 vaccine, we invite you to visit the CDC website for a list of frequently asked questions. https://www.cdc.gov/coronavirus/ 2019-ncov/vaccines/faq.html [facility] Patient Portal Access Instructions: Stay connected with your healthcare team and access your personal medical information anytime with the [facility] Patient Portal.If you would like a full copy of your medical records, please contact the [facility] Medical Records Department, Friday through Friday between 8a.m. and 4:30p.m. Please follow the directions below to access the portal: 1.Access the email account you provided upon registration to the hospital.2.Look for an invitation email from [facility].3.Open the email and access the invitation link: Accept Invitation to [facility].Fill in the required lim to create your account. Sign into [email or web address] with your username and password that you [...] you will allow to register on the [facility] Patient Portal for access to your information. You can also access the [facility] Patient Portal on the [employer] vladimir. Simply click on Health Records under [...] Call your local pharmacy or go to [email or web address] to find one close to you.3.Make use of household items: Use cat litter or old coffee grounds to dispose medications if other options are not available. Mix your drugs with these household products, seal them in an airtight container and throw it into the garbage. Call [facility]: [phone] to be sure your drugs can be [...] aware that I should contact my doctor. Patient/Management Assistant Signature: Date/Time: Relationship to Patient: Witness Name/Signature: Date/Time: [facility] 10-22-2022 Procedure note Left Atrial Appendage [...] fibrillation in a patient with elevated thromboembolic [id number]-Igoa score. Elevated bleeding HAS-BLED score and intolerant, unwilling or unsuitable to take long-term anticoagulation. Diagnosis(Active) [] Postoperative Diagnosis:Same Operation/Procedure: Left atrial appendage closure device (Watchman) placement. Real-time ultrasonic visualization of the bilateral femoral veins. Intracardiac echocardiography Trans septal cardiac catheterization of an intact interatrial septum. Left atrial pressure measurement as well as left atrial angiogram. Physician Employment Coordinator(s):First: Rylee Lara MD Fellow: Viraj Sotomayor MD Primary Care Physician:Irma Orr MD Referring Physician:Dr. Reese Referring Secondary Market Manager:Dr. Reese Shared Decision Physician:Dr. Reese Imaging Secondary Market Manager:Rylee Lara MD Type of Anesthesia:General Estimated Blood Loss: 30cc Implants:LAAO (Watchman) size: 27mm Radio-contrast Volume:20cc Specimen(s):None Complications:None Operative Procedure:The patient was brought into the hybrid operating room then prepped and draped in a sterile fashion. A right femoral access was obtained with real-time ultrasound assistance of the right common femoral vein. The right sheath was then exchanged with a 16 Qatari Cook sheath over an Amplatz wire then [...] in the left atrial chamber as the second mate was assisting in sheath and pigtail support. [...] delivery sheath over a wire. The 5 Qatari pigtail catheter was delivered over the wire [...] the appendage. Testing was thereafter performed. Position, [place]gwick, Size and Seal (PASS) criteria were confirmed. [...] (mm): 0 : []45 : 2190 : 54230 : 20 Compression (%):0 : []45 : 2890 : 33120 : 24 The device was successfully released via a counterclockwise turn on the delivery system with no evidence of any dislodgment. A final angiogram was performed via the sheath was performed with adequate device positioning. The sheath was retracted into the right atrial chamber leaving a minimal residual pleural septal defect at best. 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 Family History: Aneurysm Brother Heart disease Brother Diabetes mellitus type 2 Mother Father Brother Stroke Mother CAD - Coronary artery disease Mother COPD (Chronic Obstructive Pulmonary Disease) Assessment Test scale Father Procedure history: Colonoscopy ([id number]) on 02/11/[address] angiography of chest with contrast ([id number]) on 06/02/2021 at 71 Years. Comments: 07/10/2022 13:43 Theodora Aguirre RN From [facility]: No PE. Findings are most c/w mild pulmonary edema and CHF superimposed underlying chronic lung disease. CAD. Mild cardiac enlargement. Cardiac catheterization ([id number]) on 02/06/2021 at 70 Years. Comments: 07/10/2022 13:31 Theodora Aguirre RN [facility]: Normal LV end diastolic pressure. Normal LV size, wall motion, and systolic function. LVEF 65%. Minto multivessel CAD. RCA stents patent. No mitral valve insufficiency appreciated. Echocardiogram ([id number]) on 02/06/2021 at 70 Years. Comments: 07/10/2022 13:37 Theodora Aguirre RN From [facility]: Normal LVEF of 65%. Trivial mitral insuff. Trivial tricuppid valve insuff. Mild aortic valve stenosis. Diastolic function is indeterminate. Unable to estimate RV systolic pressure/pulmonary artery pressure due to technically difficult study. Cardiac catheterization ([id number]) on 05/01/2018 at 68 Years. Comments: 07/10/2022 13:23 Theodora Aguirre RN Cardiac acth with PCI/stent of the proximal RCA History of right hip replacement ([id number]). Comments: 10/15/2022 8:24 TORRIE Sharma x2 EGD (esophagogastroduodenoscopy) gastric outlet reduction ([id number]). Prescription event monitoring ([id number]). Comments: 07/10/2022 13:39 Theodora Aguirre RN 02/01/21 to 03/02/21 [employer] Event monitor Right hip injury ([id number]). Comments: 10/15/2022 8:23 TORRIE Sharma Pinning of [...] Weight Lbs 218.5 lb Weight Method Actual [place] Body Weight 65.94 kg Body Mass Index [...] Method Explanation, Printed materials Preferred Written Language Micronesian Preferred Spoken Language Micronesian Pre Procedure/Surgery Education Appropriate expectations, Date/Time of procedure/surgery, Surgical skin prep, Transfer to ICU after surgery Procedure/Surgical Teaching Evaluation Verbalizes/Nonverbally indicates understanding Procedure/Surgery Testing Education Lab tests 10/22/2022 5:46 EDT Designated Person #1 We May Share ESMER Chicas [phone] Designated Person #1 Relationship Spouse Privacy Restrictions Requested None Height 170.0 cm Height in inches 66.9 inch(es) Admission Weight 99.3 kg Weight Lbs 218.5 lb Weight Method Actual [place] Body Weight 65.94 kg Body Mass Index [...] Status N/A Skin Temperature Warm Skin Description [place], Dry Skin Integrity Intact Mucous Membrane Color [place] Skin Moisture General Dry IV Present Present [...] (Modified) Advanced Directives Yes Advance Directive Type [place] Durable Power of Domestic Helper for [facility] [place], [place] Declaration (Living Will) Advance Directive Location [...] Evaluation Verbalizes/Nonverbally indicates understanding Preferred Written Language Micronesian Preferred Spoken Language Micronesian Pre Procedure/Surgery Education Appropriate expectations, Date/Time of [...] EDT Stella BRAVO . Assessment and Plan [place] Society of Anesthesiologists (ASA) physical status classification: [...] his compromised respiratory status secondary to COPD. Pet Technologist has recommended MAC anesthesia if possible. Cardiology will use ICE instead of AZUL to facilitate this without intubation and paralysis. If we are unable to manage under MAC then will conssider LMA. This was discussed extensively with the patient and he agrees. Patient was seen and examined by Hnery loredo MD. The medical record was reviewed. Consultations, lab results , radiographic results and cardiovascular studies examined and noted. Anesthesia was explained in detail and questions were invited and answered. We will proceed as outlined in the plan above.. Digitally Signed by HENRY LEE MD on 10/22/2022 06:33 AM Digitally Signed by HENRY LEE MD on 10/22/2022 08:07 AM [facility] 02-11-2022 Hospital Discharg e instructions Patient [...] before eating solid foods. General instructions Take gcmu-qtw-rkuemvn and prescription medicines only as told by [...] 10/20/2016 Document Revised: 09/28/2018 Document Reviewed: 10/20/2016 [employer] Patient Education 2020 [employer]. 02/11/2022 10:12:09 Colonoscopy, Adult, Care After, Npyq-ne-Vlxb Colonoscopy, Adult, Care After This sheet gives [...] are soft and easy to digest. Take gbcd-qbm-jrywcrk or prescription medicines only as told by [...] 08/02/2011 Document Revised: 04/30/2018 Document Reviewed: 03/24/2017 [employer] Patient Education [employer]. Follow Up Care 02/01/2022 07:36:55 With:SHAUN BOOGIE MD Address: [address] [place] [address] [phone] When: Unknown Comments:office will call with lab results and any follow up if needed [facility] 02-11-2022 Summary of episod e note Discharge Instructions Thank you for allowing [facility] to assist you with your healthcare needs. The following is important discharge information regarding your hospital visit. Your Care Team VIRAJ RAMIREZ DO What to do next Follow Up Appointments Follow Up with SHAUN BOOGIE MD When Why: office will call with lab results and any follow up if needed Where: [address] [place] [address] [phone] Allergies Jardiance doxycycline lisinopril Medications Please ask [...] before eating solid foods. General instructions Take vnvq-rdi-uokntkq and prescription medicines only as told by [...] 10/20/2016 Document Revised: 09/28/2018 Document Reviewed: 10/20/2016 [employer] Patient Education 2020 [employer]. Colonoscopy, Adult, Care After This sheet gives [...] are soft and easy to digest. Take broe-pcp-aqtuwsf or prescription medicines only as told by [...] 08/02/2011 Document Revised: 04/30/2018 Document Reviewed: 03/24/2017 [employer] Patient Education 2020 [employer]. Additional Information VACCINATE! IT SAVES LIVES! Members of the community who have not yet received the COVID-19 vaccine and would like to receive it can visit one of [facility] vaccine clinics. There are many vaccine clinic locations within the [facility]. For locations and available times, please visit [email or web address] It is important to note that some COVID mobile vaccine clinics are held outdoors and may be canceled in rainy or stormy conditions. To learn more about pediatric vaccinations (ages 5-11), we invite you to visit the [facility] webpage. [email or web address] To learn more about the COVID-19 vaccine, we invite you to visit the [facility] website for a list of frequently asked questions. [email or web address] [email or web address] [facility] Patient Portal Access Instructions: Stay connected with your healthcare team and access your personal medical information anytime with the [facility] Patient Portal.If you would like a full copy of your medical records, please contact the [facility] Medical Records Department, Friday through Friday between 8a.m. and 4:30p.m. Please follow the directions below to access the portal: 1.Access the email account you provided upon registration to the hospital.2.Look for an invitation email from [facility].3.Open the email and access the invitation link: Accept Invitation to [facility]4.Fill in the required lim to create your [...] you will allow to register on the [facility] Patient Portal for access to your information. You can also access the [facility] Patient Portal on the [employer]Pal. Simply click on Health Records under Health [...] Call your local pharmacy or go to [email or web address] to find one close to you.3.Make use of household items: Use cat litter or old coffee grounds to dispose medications if other options are not available. Mix your drugs with these household products, seal them in an airtight container and throw it into the garbage. Call [facility]: [phone] to be sure your drugs can be [...] Care, Care After Colonoscopy, Adult, Care After, Ikcj-zz-Avhl Medication Leaflets My discharge plan and instructions have been reviewed and explained to me and I,ESTEFANY PEPPER understand my current condition and have read and understand these discharge instructions. I have received a written copy of the plan/instructions. If I have questions, I am aware that I should contact my doctor. Patient/Management Assistant Signature: Date/Time: Relationship to Patient: Witness Name/Signature: Date/Time: [facility] 02-11-2022 Anesthesiology Consult note Patient: ESTEFANY PEPPER Age: 71 years Sex: Male : 1950 Associated Diagnoses: None Author: YRN HOANGJUNIOR ESTIMATOR Preoperative Information Time of last solid food [...] list: Medical Memory loss / SNOMED CT 10471759 / Confirmed Hypertension / SNOMED CT 7432104876 / Confirmed COPD with emphysema / SNOMED CT 142171300 / Confirmed, Active Problems (14) Afib Alzheimer disease CHF (congestive heart failure) COPD (chronic obstructive pulmonary disease) COPD with emphysema DM2 (diabetes mellitus, type 2) GERD (gastroesophageal reflux disease) GIB (gastrointestinal bleeding) HTN (hypertension) Hypertension Memory loss Oxygen dependent Pulmonary hypertension Sleep apnea with use of nocturnal bilevel positive airway pressure (BPAP) Histories Past Medical History: Resolved COVID ([id number]): Resolved. Family History: Diabetes mellitus type 2 Mother Father Brother CAD - Coronary artery disease Mother Procedure history: Colonoscopy ([id number]) on 02/11/2022 at 71 Years. Placement of stent in cardiac conduit ([id number]) in 2017 at 67 Years. History of right hip replacement ([id number]). EGD (esophagogastroduodenoscopy) gastric outlet reduction (4221003281). History of revision of right total hip arthroplasty (2683291842). Social History Social & Psychosocial Habits Alcohol [...] Signs(last 24 hrs) Last Charted Heart Rate Jxexsqjpo50 bpm (FEB 11 09:50) Resp Rate 11 br/min (FEB 11 09:50) SAC559 mmHg (FEB 11 09:45) DBP68 mmHg (FEB 11 09:45) Measurements from flowsheet : Measurements 02/11/2022 8:36 EDT Height 170 cm Admission Weight 102 kg Weight Method Stated [place] Body Weight 65.94 kg Pain assessment: Pain [...] EDT Lactated Ringers Injection 100 mL mL [facility] Procedure Record [facility] Procedure Record 02/11/2022 9:50 EDT SN [...] Surgeon SN - CAt - Role Performed Fisher Gill Net 1 SN - CAt - Role Performed Sole Seamer SN - CAt - Role Performed JUNIOR ESTIMATOR SN - CAt - Role Performed Sole Seamer 02/11/2022 8:46 EDT Lactated Ringers Injection Begin Bag 1,000 mL mL 02/11/2022 8:36 EDT Designated Person #1 We May Share ESMER Chicas [phone] Designated Person #1 Relationship Spouse Privacy Restrictions Requested None Height 170 cm Admission Weight 102 kg Weight Method Stated [place] Body Weight 65.94 kg Temperature Temporal Artery 36.4 DegC Apical Heart Rate 52 bpm LOW Respiratory Rate 15 br/min Systolic BP Left Arm 153 mmHg HI Diastolic BP Left Arm 70 mmHg Primary Pain Intensity 0 Pain Scale Type 0-10 Pain scale Nail Bed Color [place] Heart Rhythm Regular Oxygen Therapy Room air [...] Yes Advanced Directives Yes Advance Directive Type [place] Durable Power of Domestic Helper for [place], [place] Declaration (Living Will) Advance Directive Location [...] Weeks No Weight Loss No Allergies Yes Generator Assembler On Yes Colon Prep Results Excellent Consent [...] No further teaching needed Preferred Written Language Micronesian Preferred Spoken Language Micronesian Information Given by Spouse Patient's Current Physicians [...] Day Patient History . Assessment and Plan [place] Society of Anesthesiologists (ASA) physical status classification: Class III. Anesthetic Preoperative Plan Anesthetic technique: MAC. Informed consent: signed by patient. Digitally Signed by YRN HOANG APRN-JOSE DAVID on 02/11/2022 09:55 AM [facility] 02-11-2022 Anesthesiology Consult note Patient: ESTEFANY [...] by YRN HOANG on 02/11/2022 09:54 AM [facility] ADMISSION HISTORY AN D PHYSICIAL CHIEF COMPLAINT: HISTORY OF PRESENT ILLNESS: REVIEW OF SYSTEMS: ACTIVE PROBLEMS: (13) Afib (78189003) CHF (congestive heart failure) (36921532) COPD (chronic obstructive pulmonary disease) (49780739) COPD with emphysema (292594250) DM2 (diabetes mellitus, type 2) (452750523) GERD (gastroesophageal reflux disease) (674352947) GIB (gastrointestinal bleeding) (949357915) HTN (hypertension) (0983280819) Hypertension (7968585275) Memory loss (29237477) Oxygen dependent (5221008712) Pulmonary hypertension (003270561) Sleep apnea with use of nocturnal bilevel positive airway pressure (BPAP) (353877816) MEDICATIONS: Active Inpt Meds: None Active PRN Meds: None One Time Meds: None Active IV Meds: Lactated Ringers Infusion 1,000 mL (LR 1,000 mL) Start: 12/17/21 7:39:00 EDT, Rate: 50 mL/hr, 12/17/21 7:39:00 EDT ALLERGIES: (3) doxycycline Jardiance lisinopril FAMILY HISTORY: SOCIAL HISTORY: PHYSICAL EXAM: VITALS: OjzfdaAexrIFUolzhXPQzM1NUP5WfibSq(kg) 12/17 07:2735.9103/90639763DZ23/29188.0 24 Hr Tmax: 35.9 at 12/17 07:27 36 Hr Tmax: 35.9 at 12/17 07:27 Vital Signs are the last 5 in the past 48 hours. Weights display the last 5 within 7 days. Initial Wt: 12/17 102.0 kg 224 lb Current Wt: 12/17 102.0 kg 224 lb GENERAL: HEENT: CARDIOVASCULAR: RESPIRATORY: ABDOMEN: EXREMETIES: NEUROLOGICAL: PSYCHIATRIC: LABS: 36hr Labs 12/17 0727 Blood Glucose, Hqrfqivel886L Blood Glucose, Hdvgkaetd941B DIAGNOSTICS: IMPRESSION: PLAN: History and Physical Update I have examined the patient; reviewed the H&P and there are no changes to the H&P unless noted below. [facility] 06-06-2022 Hospital Discharge instructions Patient Education [...] before eating solid foods. General instructions Take emsj-ftv-eaeojkq and prescription medicines only as told by [...] 10/20/2016 Document Revised: 09/28/2018 Document Reviewed: 10/20/2016 [employer] Patient Education 2020 [employer]. 12/17/2021 08:55:28 Duodenal Biopsy, Care After Duodenal [...] Follow these instructions at home: Medicines Take cczu-pww-kotktjc and prescription medicines only as told by [...] 07/26/2016 Document Revised: 02/16/2019 Document Reviewed: 02/16/2019 [employer] Patient Education 2020 [employer]. 12/17/2021 08:55:28 Helicobacter Pylori Antibodies Test Helicobacter [...] including vitamins, herbs, eye drops, creams, and wehd-nfs-jbavpek medicines. How are the results reported? Your [...] 07/24/2005 Document Revised: 06/12/2018 Document Reviewed: 02/10/2018 [employer] Patient Education 2020 [employer]. 12/17/2021 08:55:28 9 - AO Minor Esophagogastroduodenoscopy [...] Care 12/12/2021 12:26:25 With:SHAUN BOOGIE MD Address: [address] [place] [phone] When: Unknown Comments:office will call with biopsy results [facility] Evaluation + Plan note Future Appointments Appointment Date:10/22/2022 11:30:00 AM Scheduled Provider: Location:Heart Lab Appointment Type:CV Procedure - Heart Lab/Hybrid OR [facility] Evaluation + Plan note Future Appointments Appointment Date:11/15/2022 01:00:00 PM Scheduled Provider:TED SKY Location:CVC CAN Appointment Type:CV OV Structural Heart [facility] Hospital course Narrative No data available for this section [facility] Hospital Discharge instructions No data available for this section [facility] Note* RYLEE LARA MD: SIGN, VERIFY Event Display: Left Atrial Closure Device-CV [facility] Progress note No data available for this section [facility] Summary Purpose Family History No Family History Records FoundNo Family History Records Found Advance Directives No Advanced Directives Records FoundNo Advanced Directives Records Found Additional Source Comments (unrecognized sect ion and content) No Status Records FoundNo Status Records Found INFORMATION SOURCE (unrecogn ized section and content) DATE CREATED AUTHOR AUTHOR'S ORGANIZ ATION 12/20/2022 [facility] ([place]) Care Team (unrecognized sect ion and content) Personnel Name: VIRAJ RAMIREZ DO Address: [address] [place] [address] Care Team Personnel Name: IRMA ORR MD Member Role: Primary Care Physician Address: Address: [address] [address]- [place] Care Team Related Persons Name: DANIEL PEPPER Address: Home [address] [place] [address] [place], [place] [phone] Care Team Personnel Name: IRMA ORR MD Member Role: Primary Care Physician Address: Address: [address] [place] [address]- [place] Care Team Related Persons Name: DANIEL PEPPER Address: Home [address] [place] [address] [address] [place], [place] [phone] Care Team (unrecognized sect ion and content) Care Team Personnel Name: VIRAJ RAMIREZ DO Position: P4 Physician - Primary Care Member Role: Primary Care Physician Address: Address: [address] [place] [address] Care Team Related Persons Name: DANIEL PEPPER Address: [address] [place], [phone] FOR RECORDS PERTAINING TO PATIENTS WHO ARE [...] BE BASED ON THE PRIMARY CLINICAL RECORDS. [employer] provides no warranty or guarantee of the accuracy or completeness of information in this document.
[2023-07-09 22:14] LABS: Bedside Glucose 388 mg/dL (74-106)
--- NOTE | 2023-07-09 23:56 | CPS ---
Pt placed on sleep lab PAP machine for the night on 06/19 with 4L bleed
[2023-07-10] VITALS (7 sets, daily range): BP systolic 115–147; BP diastolic 55–72; PULSE 81–96; RESP 16–20; TEMP 36.3–36.9; O2SAT 83–96
[2023-07-10 05:07] LABS: HEPATITIS B SURFACE AG Negative (Negative); Hep C Antibodies Non Reactive (Non Reactive); Hepatitis A IgM Antibody Negative (Negative); Hepatitis B Core AB IgM Negative (Negative)
[2023-07-10] MEDS: Gabapentin 300 MG Capsule PO ×2 (05:36→14:04)
[2023-07-10] MEDS: Insulin Lispro 100 UNIT/ML INSULN.PEN SC ×2 (05:36→11:58)
[2023-07-10 05:56] LABS: Bedside Glucose 296 mg/dL (74-106)
[2023-07-10] MEDS: Ipratropium/Albuterol Sulfate 3 ML AMPUL.NEB INHALATION ×2 (07:10→13:22)
[2023-07-10 08:20] LABS: Absolute Lymphocyte Count 0.45 X10^3/uL (0.83-4.51); Absolute Neutrophil Count 4.5 X10^3/uL (2.0-7.7); Hematocrit 29.3 % (40-54); Hemoglobin 9.4 g/dL (13.0-16.5); Lymphocyte # 0.45 X10^3/ul (0.83-4.51); Lymphocyte % 8.7 % (19-41); Mean Corp Hgb Conc 32.1 g/dL (32-36); Mean Corpuscular Hgb 31.3 pg (27.0-32.0); Mean Corpuscular Volume 97.7 fL (80-94); Mean Platelet Vol. 9.9 fl (6.2-12.0); Monocyte# 0.15 X10^3/uL; Monocyte% 2.9 % (0-10); NRBC Flagged by Analyzer 0 % (0-5); Neutrophil # 4.54 X10^3/uL (2.7-7.7); Neutrophil % 87.4 % (47-70); POSITIVE DIFFERENTIAL YES; Platelet Count 145 K/mm3 (150-450); RBC Distribution Width CV 14.2 % (11.6-14.6); RBC Distribution Width SD 50.7 fl (35.1-43.9); White Blood Count 5.2 K/mm3 (4.4-11.0)
[2023-07-10 08:22] LABS: Differential Indicated SCAN CRITERIA MET
[2023-07-10] MEDS: levoFLOXacin IV 500 MG/100 ML BAG 100 MG IV (08:31)
[2023-07-10] MEDS: Enoxaparin 40 MG/0.4 ML Syringe SC (08:31)
[2023-07-10] MEDS: guaiFENesin/D-Methorphan TAB.SR.12H 2 TABLET PO (08:31)
[2023-07-10] MEDS: Furosemide 20 MG Tablet 10 MG PO (08:32)
[2023-07-10] MEDS: Pantoprazole Sodium 40 MG Tablet PO (08:33)
[2023-07-10] MEDS: Aspirin E.C. 81 MG Tablet PO (08:33)
[2023-07-10] MEDS: Tamsulosin HCl 0.4 MG Capsule 0.400000000000000022 MG PO (08:33)
[2023-07-10] MEDS: Cholecalciferol (VIT D3) 25 MCG TABLET (1,000 UNITS) PO (08:33)
[2023-07-10 08:34] LABS: AST(SGOT) 50 U/L (15-37); Alanine Aminotransfer ALT/SGPT 254 U/L (16-61); Albumin, Serum 2.8 g/dL (3.2-5.0); Alkaline Phosphatase 232 U/L (45-117); Anion Gap 9 (5-15); BUN 18 mg/dL (7-18); BUN/Creat Ratio 17.5 RATIO (10-20); Bilirubin, Direct 0.23 mg/dL (0.00-0.30); Calcium,Total 9.3 mg/dL (8.5-10.1); Chloride 107 mmol/L (98-107); Creatinine, Serum 1.03 mg/dL (0.70-1.30); EST Glomerular Filtration Rate 76 mL/min (>60); Est Glom Filt Rate - Afr Amer 92 mL/min (>60); Estimated Creatinine Clearance 63.64 ml/min; Globulin 3.7 g/dL (2.2-4.2); Glucose 315 mg/dL (74-106); Potassium 3.9 mmol/L (3.5-5.1); Protein, Total 6.5 g/dL (6.4-8.2); Sodium Level 139 mmol/L (136-145)
[2023-07-10] MEDS: Losartan Potassium 100 MG Tablet PO (08:34)
[2023-07-10] MEDS: Clopidogrel Bisulfate 75 MG Tablet PO (08:34)
[2023-07-10] MEDS: Smz/Tmp Ds Tablet 0.5 TABLET PO (08:34)
[2023-07-10] MEDS: Ferrous Gluconate 324 MG Tablet PO (08:34)
[2023-07-10] MEDS: NIFEdipine 90 MG Tablet PO (08:35)
[2023-07-10 08:37] LABS: Differential Comment SCANNED
[2023-07-10] MEDS: traMADol 50 MG Tablet PO (08:37)
--- NOTE | 2023-07-10 10:30 | CASEMGMT ---
Addendum entered by Emile Taylor 07/10/23 20:47: 2:30 PM: Home O2 testing completed. Pt qualifies for 3 L/M w/@ rest and 6 L/M w/exertion. He will need larger O2 concentrator @ home. Call placed to RT Rebeca, @ [facility] and she was made aware and that pt is discharging home today. [facility] O2 paperwork completed and faxed to Rebeca. Rebeca called this RN CM back and stated she has received the paperwork and and sent the need for increase O2 and larger concentrator to [facility] who will be contacting pt's to arrange for larger concentrator to be delivered to pt's home today. Pt and made aware. They deny having further discharge needs or concerns. Original Note: TORRIE MILLIGAN Assessment: RN CM to room to meet with pt for initial transition planning/care coordination assessment. TORRIE MILLIGAN introduced self and role at [facility], pt voices understanding and consents to assessment. Pt is alert at this time but defers to in room to answer questions. Pt states pt does have dementia. Care providers, pharmacy, and demographics verified/updated. PCP:Dr Orr. Also sees EMPLOYMENT ADJUDICATOR Angy Shea @ [facility]' office to manage dementia. Pt also goes to [facility] Specialists: [facility]/cardio; petra Tavarez; Preferred Pharmacy: [facility] Insurance: VA benefits, [facility] Prescription Benefit: yes LNOK: Aviva Levy, Living Arrangements: Pt lives with , 90-yr-old mother in law, and 20-yr-old grandson in a single story house with a ramp to enter. Pt reports she assists pt w/showering and bathing (he can mostly dress himself, but she assists if needed). She manages all of pt's medications and all home mgnt tasks. GS does assist at times. states someone is with pt 03/02. Transportation: Pt transports pt to medical appts. DME: Pt has a functioning glucometer with sufficient supplies, rollator, w/c, built-in corner shower seat, hand held shower, medical alert through the [facility], nebulizer, and pulse ox at home. Pt has oxygen through the [place] from [facility] with portable tanks that can bring in for pt to go home on. states pt uses the O2 @ 3 l/m mostly @ HS and sometimes w/exertion. TORRIE MILLIGAN placed call to [facility]. Current O2 orders are for 3-4 L/M w/exertion. Pt's concentrator only goes up to 5 l/m and the portable O2 tank regulator goes up to 8 l/m. If pt qualifies for more than 5 l/m @ discharge, he will need larger concentrator. HHC/SNF: No hx of SNF or HHC. Pt used to be active w/a [facility]-based program [facility], but he is no longer active w/that. declines need for HHC. She is aware to f/u with PCP or [facility] if they decide at a later time that they would like HHC or the [facility] if they would like aides in the home. states they are connected w/[facility] and she has support/resources from them also. and pt state no concerns with going home at time of dc. They state no further concerns/needs. CM to follow. Advised them to ask CM if any further question/concerns/needs arise. They voice understanding. Plan: Home w/spousal support and discharge plans in place. Follow for possible increase in home needs @ discharge. Paola BUIN TORRIE MILLIGAN
[2023-07-10 12:17] LABS: Bedside Glucose 413 mg/dL (74-106)
[2023-07-10 12:57] LABS: Pathologist Review Reviewed
--- NOTE | 2023-07-10 14:22 | DCINST_ITS ---
Discharge Instructions Diet Discharge Diet: Low fat / Low cholesterol Activity Discharge Activity: Return to Normal Activity Weight Bearing Status: Weight bearing as tolerated Dressing / Incision Call your doctor if you observe: Fever of 101 or Higher, Shortness of breath, Dizziness, Swelling in the ankles and Chest pain Follow Up Care Test Results: Test results from this visit will be discussed in further detail at your follow- up appointment, if applicable. Discharge Plan Admission Admit Date/Time: 07/09/23 00:43 Primary Reason for Your Visit: COPD exacerbation Attending Provider: Yani Latif Primary Care Provider: Umesh Orr Consulting Providers: Rachel Wooten Instructions Patient Instructions: COPD Controlled Breathing Dc Additional Instructions / Restrictions: bactrim and azithromycin discontinued due to elevated liver enzymes. To follow up with PCP in 2-3 days for follow up CMP to check if liver function is continuing to improve. Use oxygen for shortness of breath as needed. Discharge Orders/Prescriptions Prescriptions: New prednisone 20 mg tablet 40 mg PO DAILY Qty: 10 0RF levofloxacin 500 mg tablet 500 mg PO DAILY Qty: 5 0RF Continued Daliresp 500 mcg tablet 500 mcg PO QPM Rx Instructions: Takes in the PM omega-3 fatty acids [Fish Oil Concentrate] 1,000 mg capsule 1,000 mg PO BID tamsulosin 0.4 mg capsule 0.4 mg PO DAILY torsemide 10 mg tablet 5 mg PO DAILY albuterol sulfate 2.5 mg /3 mL (0.083 %) solution for nebulization 2.5 mg INHALATION 4X/DAY PRN (Reason: Sob &/Or Wheezing) magnesium oxide 400 mg magnesium tablet 400 mg PO QHS acetaminophen 650 mg tablet extended release 1,300 mg PO Q12H gabapentin 300 mg capsule 300 mg PO TID sertraline 50 mg tablet 50 mg PO DAILY memantine 5 mg tablet 5 mg PO QPM donepezil 5 mg tablet 5 mg PO QHS aspirin [Adult Low Dose Aspirin] 81 mg tablet,delayed release (DR/EC) 81 mg PO DAILY Breztri Aerosphere 160-9-4.8 mcg/actuation HFA aerosol inhaler 2 inh inhalation BID atorvastatin 40 MG tablet 40 mg PO QHS Patient Comments: CHOLESTEROL metformin 1,000 MG tablet 1,000 mg PO BIDCM Patient Comments: DIABETES valsartan 320 MG tablet 320 mg PO DAILY Patient Comments: BLOOD PRESSURE albuterol sulfate 1 PUFF inhaler 2 puff INHALATION Q4H PRN PRN (Reason: Shortness Of Breath) Patient Comments: BREATHING clotrimazole 1 % Cream 1 applic TOPICAL BID PRN (Reason: feet) pantoprazole [Protonix] 40 mg tablet,delayed release (DR/EC) 40 mg PO DAILY Qty: 30 2RF ascorbic acid (vitamin C) 500 mg tablet 500 mg PO BID Qty: 60 0RF nifedipine 90 mg Tablet Extended Release 90 mg PO DAILY tramadol 50 mg Tablet 50 mg PO BID Mucinex DM 30-600 mg Tablet Extended Release 12 Hr 2 tab PO BID 7 Days Qty: 28 0RF mirtazapine 15 mg tablet 30 mg PO QHS cholecalciferol (vitamin D3) [Vitamin D3] 25 mcg (1,000 unit) capsule 25 mcg PO DAILY montelukast 10 mg tablet 10 mg PO QHS ferrous gluconate 324 mg (37.5 mg iron) Tablet 324 mg PO BID amlodipine 5 mg tablet 5 mg PO DAILY Qty: 90 3RF Discontinued azithromycin [Zithromax] 250 mg tablet 250 mg PO DAILY Rx Instructions: start on day 2 of therapy sulfamethoxazole-trimethoprim [Bactrim] 400-80 mg tablet 1 tab PO BID Referrals / Follow Up: Venkat Ervin MD [Med Staff - Ag Equipment Field Service Technician] - Within 2 Weeks Disposition Disposition (needs filled in before D/C Order can be placed): Home, Self Care
--- NOTE | 2023-07-10 14:24 | PCM.DC.SUM ---
Providers Date of Admission: 07/09/23 Date of Discharge: 07/10/23 Primary Care Physician: Dr. Umesh Orr MD Reason For Visit: SHORTNESS OF BREATH Diagnosis Discharge Diagnosis (1) Fever: Status: Acute Code(s): R50.9 - Fever, unspecified (2) COPD with acute exacerbation: Status: Chronic Code(s): J44.1 - Chronic obstructive pulmonary disease with (acute) exacerbation Plan #Hypoxia due to COPD exacerbation Still feels short of breath. On IV Solu-Medrol. Already on IV azithromycin. Will continue. Breathing treatments of bronchodilators. Titrate oxygen to maintain saturation above 90%. both covid and influenza negative. On Roflumilast. Also on torsemide. #Dementia: On memantine and donepezil #Type 2 diabetes mellitus: On Lantus. Insulin sliding scale. Accu-Cheks ACHS. Hold metformin in light of elevated liver enzymes #Transaminitis: AST and ALT were elevated on admission. have started trending down. Will monitor for now. Azithromycin, which patient is chronically on, can also cause hepatotoxicity. Will monitor for now as liver enzymes have started trending down. #Hypertension: On amlodipine and losartan #Lactic acidosis: Lactic acid is down to 3 from 3.9 yesterday. Continue gentle hydration with IV fluids. #Pancytopenia: WBC is 3.4 with hemoglobin of 8.2 and platelets of 127. This seems to be chronic. Will monitor for now. #Hypokalemia: Potassium is 3.4. Will replace and trend. Medications at Discharge Home Medications albuterol sulfate 90 mcg/actuation aerosol inhaler 2 puff inhalation Q4H PRN PRN Shortness Of Breath 06/24/15 atorvastatin 40 mg tablet 40 mg PO QHS Cholesterol 06/24/15 metformin 1,000 mg tablet 1,000 mg PO BIDCM Diabetes 06/24/15 valsartan 320 mg tablet 320 mg PO DAILY BP 06/24/15 omega-3 fatty acids 1,000 mg capsule (Fish Oil Concentrate) 1,000 mg PO BID Heart health 04/14/18 roflumilast 500 mcg tablet (Daliresp) 500 mcg PO QPM COPD 04/14/18 tamsulosin 0.4 mg capsule 0.4 mg PO DAILY Prostate 04/14/18 albuterol sulfate 2.5 mg/3 mL (0.083 %) solution for nebulization 2.5 mg inhalation 4X/DAY PRN Sob &/Or Wheezing 10/15/18 torsemide 10 mg tablet 5 mg PO DAILY diuretic 10/15/18 magnesium oxide 400 mg PO QHS supplement 10/25/20 sertraline 50 mg tablet 50 mg PO DAILY mental health 08/01/21 ascorbic acid (vitamin C) 500 mg tablet 500 mg PO BID vitamin #60 tabs 11/27/21 clotrimazole 1 % topical cream 1 applic topical BID PRN feet 11/27/21 pantoprazole 40 mg tablet,delayed release (Protonix) 40 mg PO DAILY reflux #30 tabs 11/27/21 nifedipine 90 mg tablet,extended release 90 mg PO DAILY blood pressure 03/15/22 tramadol 50 mg tablet 50 mg PO BID Pain 03/15/22 acetaminophen 650 mg tablet,extended release 1,300 mg PO Q12H pain 05/08/22 gabapentin 300 mg capsule 300 mg PO TID pain 05/08/22 dextromethorphan-guaifenesin 30 mg-600 mg tablet extended hr (Mucinex DM) 2 tab PO BID secretions 7 days #28 tabs 07/27/22 amlodipine 5 mg tablet 5 mg PO DAILY blood pressure #90 tabs 11/11/22 donepezil 5 mg tablet 5 mg PO QHS dementia 11/27/22 memantine 5 mg tablet 5 mg PO QPM dementia 11/27/22 aspirin 81 mg tablet,delayed release (Adult Low Dose Aspirin) 81 mg PO DAILY heart health 05/29/23 budesonide 160 mcg-glycopyr 9 mcg-formot 4.8 mcg/actuation HFA inhaler (Breztri Aerosphere) 2 inh inhalation BID breathing 05/29/23 mirtazapine 15 mg tablet 30 mg PO QHS SLEEP 05/29/23 cholecalciferol (vitamin D3) 25 mcg (1,000 unit) capsule (Vitamin D3) 25 mcg PO DAILY vitamin 07/08/23 ferrous gluconate 324 mg (37.5 mg iron) tablet 324 mg PO BID supplement 07/08/23 montelukast 10 mg tablet 10 mg PO QHS allergies 07/08/23 levofloxacin 500 mg tablet 500 mg PO DAILY #5 tabs 07/10/23 prednisone 20 mg tablet 40 mg (2 x 20 mg) PO DAILY #10 tabs 07/10/23 Hospital Course Operations None Procedures None Summary of Care Provided Minutes Spent on Discharge: 43 Hospital Course: Patient is a 73-year-old male with a past medical history as outlined including COPD on 8 L of oxygen at home. He was admitted to the ED on 07/09/2023 with a complaint of shortness of breath and fever. He had been seen in the ED 2 days prior to admission for similar symptoms. He had been started on p.o. prednisone at home but his shortness of breath did not improve so he came into the ED. Chest x-ray showed interstitial markings in the lung bases but no evidence of pneumonia. He was admitted and managed for acute COPD exacerbation. He was placed on IV Solu-Medrol and breathing treatments bronchodilators. He was also placed on IV Levaquin. His liver enzymes were noted to be elevated. Of note, patient had been on azithromycin and Bactrim for about a year. He said he was placed on this by his PCP for suppression of inflammation in his lungs. Elevation in the liver enzymes were thought to be due to the azithromycin and Bactrim side effects. These were discontinued. Liver enzymes subsequently started trending downwards. His shortness of breath improved and he felt much better. He was weaned down to his baseline oxygen. He had walking pulse ox which showed that he required 4 L of oxygen at rest and 6 L with ambulation. He was discharged home on 07/10/2023. He is to follow-up with his primary care doctor and to follow-up with pulmonology on outpatient basis. He is follow-up with his PCP for repeat liver profile to monitor liver enzymes within one week. Patient seen and examined prior to discharge. He had no active complaints and had an uneventful night. Review of systems otherwise negative. Labs and vitals reviewed. Home medication reviewed and reconciled. Physical Exam Const alert, oriented x3 and no apparent distress General Appearance: cooperative and comfortable Exam Limitations: no limitations HEENT normocephalic, head/scalp atraumatic, hearing grossly normal bilaterally, EAC's normal and moist oral mucous membranes Mouth: oral and palatal mucosa normal Eyes PERRL, EOMs intact bilaterally and conjunctivae normal Neck no lymphadenopathy and supple Lymph Lymphatic: no lymphadenopathy noted and no lymphedema noted Resp Resp Narrative: mildly diminished breath sounds bibasally, no wheezes or crackles. On 4L of oxygen by nasal canula Auscultation: rhonchi lower bilaterally Cardio regular rate, regular rhythm, S1 normal heart sound, S2 normal heart sound and no murmurs Peripheral Pulses: pulses 2+ throughout GI normal to inspection, nondistended, normoactive bowel sounds, soft to palpation and non-tender Extremity normal capillary refill, no clubbing, cyanosis or edema and no calf tenderness Extremity Narrative: No pedal edema General Extremity: no tenderness to palpation of joints or extremities Skin General Skin Exam: no breakdown Neuro oriented x3, CN's II-XII intact bilaterally, moves all extremities, no focal motor deficits, no sensory deficits noted and deep tendon reflexes 2+ bilaterally Motor Exam: strength 5/5 throughout and general weakness Psych thought process normal, cooperative and affect normal Appearance: appropriate Weight / BMI Weight Weight: 227 lb 15.327 oz Body Mass Index (BMI) 34.6 ABG / Lab / Microbiology Data 07/10/23 06:23 07/10/23 06:23 Laboratory: Laboratory Results - last 24 hr 07/09/23 00:50: Hepatitis A IgM Ab Negative, Hep Bs Antigen Negative, Hep B Core IgM Ab Negative, Hepatitis C Ab (EIA) Non Reactive, Hep C Ab Comment Comment 07/09/23 02:35: Diff Path Review Reviewed 07/09/23 12:20: POC Glucose 294 H 07/09/23 15:58: POC Glucose 313 H 07/09/23 21:16: POC Glucose 388 H 07/10/23 05:34: POC Glucose 296 H 07/10/23 06:23: WBC 5.2, RBC 3.00 L, Hgb 9.4 L, Hct 29.3 L, MCV 97.7 H, MCH 31.3, MCHC 32.1, RDW Std Deviation 50.7 H, RDW Coeff of Anthoyn 14.2, Plt Count 145 L, MPV 9.9, Immature Gran % (Auto) 1.000 H, Neut % (Auto) 87.4 H, Lymph % (Auto) 8.7 L, Wilson % (Auto) 2.9, Eos % (Auto) 0.0, Baso % (Auto) 0.0, Absolute Neuts (auto) 4.5, Absolute Lymphs (auto) 0.45 L, Nucleated RBC % 0, Differential Comment SCANNED, Sodium 139, Potassium 3.9, Chloride 107, Carbon Dioxide 23.0, Anion Gap 9, BUN 18, Creatinine 1.03, Estim Creat Clear Calc 63.64, Est GFR (MDRD) Af Amer 92, Est GFR (MDRD) Non-Af 76, BUN/Creatinine Ratio 17.5, Glucose 315 H, Calcium 9.3, Total Bilirubin 0.60, Direct Bilirubin 0.23, AST 50 H, ALT 254 H, Alkaline Phosphatase 232 H, Total Protein 6.5, Albumin 2.8 L, Globulin 3.7 07/10/23 11:55: POC Glucose 413 H Microbiology: Microbiology 07/08/23 21:44 Urine, Clean Catch Urine Culture - Final Culture exhibits no growth. 07/08/23 21:26 Nasal Secretion SARS-CoV-2 & FLU Antigen (Rapid) - Final D/C Instructions Discharge Diet: Low fat / Low cholesterol Discharge Activity: Return to Normal Activity Weight Bearing Status: Weight bearing as tolerated Call your doctor if you observe: Fever of 101 or Higher, Shortness of breath, Dizziness, Swelling in the ankles and Chest pain Meaningful Use Info Meaningful Use Diagnoses (Choose all that apply): None applicable Discharge Plan Admission Admit Date/Time: 07/09/23 00:43 Primary Reason for Your Visit: COPD exacerbation Attending Provider: Yani Latif Primary Care Provider: Umesh Orr Consulting Providers: Rachel Wooten Instructions Patient Instructions: COPD Controlled Breathing Dc Additional Instructions / Restrictions: bactrim and azithromycin discontinued due to elevated liver enzymes. To follow up with PCP in 2-3 days for follow up CMP to check if liver function is continuing to improve. Use oxygen for shortness of breath as needed. Discharge Orders/Prescriptions Prescriptions: New prednisone 20 mg tablet 40 mg PO DAILY Qty: 10 0RF levofloxacin 500 mg tablet 500 mg PO DAILY Qty: 5 0RF Continued Daliresp 500 mcg tablet 500 mcg PO QPM Rx Instructions: Takes in the PM omega-3 fatty acids [Fish Oil Concentrate] 1,000 mg capsule 1,000 mg PO BID tamsulosin 0.4 mg capsule 0.4 mg PO DAILY torsemide 10 mg tablet 5 mg PO DAILY albuterol sulfate 2.5 mg /3 mL (0.083 %) solution for nebulization 2.5 mg INHALATION 4X/DAY PRN (Reason: Sob &/Or Wheezing) magnesium oxide 400 mg magnesium tablet 400 mg PO QHS acetaminophen 650 mg tablet extended release 1,300 mg PO Q12H gabapentin 300 mg capsule 300 mg PO TID sertraline 50 mg tablet 50 mg PO DAILY memantine 5 mg tablet 5 mg PO QPM donepezil 5 mg tablet 5 mg PO QHS aspirin [Adult Low Dose Aspirin] 81 mg tablet,delayed release (DR/EC) 81 mg PO DAILY Breztri Aerosphere 160-9-4.8 mcg/actuation HFA aerosol inhaler 2 inh inhalation BID atorvastatin 40 MG tablet 40 mg PO QHS Patient Comments: CHOLESTEROL metformin 1,000 MG tablet 1,000 mg PO BIDCM Patient Comments: DIABETES valsartan 320 MG tablet 320 mg PO DAILY Patient Comments: BLOOD PRESSURE albuterol sulfate 1 PUFF inhaler 2 puff INHALATION Q4H PRN PRN (Reason: Shortness Of Breath) Patient Comments: BREATHING clotrimazole 1 % Cream 1 applic TOPICAL BID PRN (Reason: feet) pantoprazole [Protonix] 40 mg tablet,delayed release (DR/EC) 40 mg PO DAILY Qty: 30 2RF ascorbic acid (vitamin C) 500 mg tablet 500 mg PO BID Qty: 60 0RF nifedipine 90 mg Tablet Extended Release 90 mg PO DAILY tramadol 50 mg Tablet 50 mg PO BID Mucinex DM 30-600 mg Tablet Extended Release 12 Hr 2 tab PO BID 7 Days Qty: 28 0RF mirtazapine 15 mg tablet 30 mg PO QHS cholecalciferol (vitamin D3) [Vitamin D3] 25 mcg (1,000 unit) capsule 25 mcg PO DAILY montelukast 10 mg tablet 10 mg PO QHS ferrous gluconate 324 mg (37.5 mg iron) Tablet 324 mg PO BID amlodipine 5 mg tablet 5 mg PO DAILY Qty: 90 3RF Discontinued azithromycin [Zithromax] 250 mg tablet 250 mg PO DAILY Rx Instructions: start on day 2 of therapy sulfamethoxazole-trimethoprim [Bactrim] 400-80 mg tablet 1 tab PO BID Referrals / Follow Up: Venkat Ervin MD [Med Staff - [employer] Worker] - Within 2 Weeks Disposition Disposition (needs filled in before D/C Order can be placed): Home, Self Care Charges/Coding Visit Charges Inpatient E&M: 46075 Disch Hosp >30min
--- NOTE | 2023-07-10 14:36 | CASEMGMT ---
TORRIE MILLIGAN NOTE: VM left denis/Daphne @ [facility] notifying her that pt is discharging home today. Paola KEBEDE RN CM
--- NOTE | 2023-07-10 15:33 | PHA.DC_ITS ---
[facility] has performed discharge medication reconciliation for this patient. Medication education papers prepared, patient discharged before I was able to certified travel counselor. The patient's discharge medication list was reviewed for discrepancies and discrepancies were resolved. Medications at Discharge Home Medications albuterol sulfate 90 mcg/actuation aerosol inhaler 2 puff inhalation Q4H PRN PRN Shortness Of Breath 06/24/15 atorvastatin 40 mg tablet 40 mg PO QHS Cholesterol 06/24/15 metformin 1,000 mg tablet 1,000 mg PO BIDCM Diabetes 06/24/15 valsartan 320 mg tablet 320 mg PO DAILY BP 06/24/15 omega-3 fatty acids 1,000 mg capsule (Fish Oil Concentrate) 1,000 mg PO BID Heart health 04/14/18 roflumilast 500 mcg tablet (Daliresp) 500 mcg PO QPM COPD 04/14/18 tamsulosin 0.4 mg capsule 0.4 mg PO DAILY Prostate 04/14/18 albuterol sulfate 2.5 mg/3 mL (0.083 %) solution for nebulization 2.5 mg inhalation 4X/DAY PRN Sob &/Or Wheezing 10/15/18 torsemide 10 mg tablet 5 mg PO DAILY diuretic 10/15/18 magnesium oxide 400 mg PO QHS supplement 10/25/20 sertraline 50 mg tablet 50 mg PO DAILY mental health 08/01/21 ascorbic acid (vitamin C) 500 mg tablet 500 mg PO BID vitamin #60 tabs 11/27/21 clotrimazole 1 % topical cream 1 applic topical BID PRN feet 11/27/21 pantoprazole 40 mg tablet,delayed release (Protonix) 40 mg PO DAILY reflux #30 tabs 11/27/21 nifedipine 90 mg tablet,extended release 90 mg PO DAILY blood pressure 03/15/22 tramadol 50 mg tablet 50 mg PO BID Pain 03/15/22 acetaminophen 650 mg tablet,extended release 1,300 mg PO Q12H pain 05/08/22 gabapentin 300 mg capsule 300 mg PO TID pain 05/08/22 dextromethorphan-guaifenesin 30 mg-600 mg tablet extended hr (Mucinex DM) 2 tab PO BID secretions 7 days #28 tabs 07/27/22 amlodipine 5 mg tablet 5 mg PO DAILY blood pressure #90 tabs 11/11/22 donepezil 5 mg tablet 5 mg PO QHS dementia 11/27/22 memantine 5 mg tablet 5 mg PO QPM dementia 11/27/22 aspirin 81 mg tablet,delayed release (Adult Low Dose Aspirin) 81 mg PO DAILY heart health 05/29/23 budesonide 160 mcg-glycopyr 9 mcg-formot 4.8 mcg/actuation HFA inhaler (Breztri Aerosphere) 2 inh inhalation BID breathing 05/29/23 mirtazapine 15 mg tablet 30 mg PO QHS SLEEP 05/29/23 cholecalciferol (vitamin D3) 25 mcg (1,000 unit) capsule (Vitamin D3) 25 mcg PO DAILY vitamin 07/08/23 ferrous gluconate 324 mg (37.5 mg iron) tablet 324 mg PO BID supplement 07/08/23 montelukast 10 mg tablet 10 mg PO QHS allergies 07/08/23 levofloxacin 500 mg tablet 500 mg PO DAILY #5 tabs 07/10/23 prednisone 20 mg tablet 40 mg (2 x 20 mg) PO DAILY #10 tabs 07/10/23
== END 2023-07-10 15:19 | disposition home or self-care (01) | DRG 191 ==
LOC: ED 22:52 → PCU 07-09 06:07
PROVIDERS: Admitting Provider Internal Medicine; Emergency Provider Emergency Medicine; PCP Family Medicine; Visit Provider Student in an Organized Health Care Education/Training Program
DX: J44.1 Chronic obstructive pulmonary disease with (acute) exacerbation (principal); E87.20 Acidosis, unspecified; D61.818 Other pancytopenia; I27.81 Cor pulmonale (chronic); E11.9 Type 2 diabetes mellitus without complications; D50.9 Iron deficiency anemia, unspecified; E78.5 Hyperlipidemia, unspecified; E87.6 Hypokalemia; F03.90 Unspecified dementia, unspecified severity, without behavioral disturbance, psychotic disturbance, mood disturbance, and anxiety; I48.91 Unspecified atrial fibrillation; I10 Essential (primary) hypertension; I25.10 Atherosclerotic heart disease of native coronary artery without angina pectoris; Z79.84 Long term (current) use of oral hypoglycemic drugs; Z87.891 Personal history of nicotine dependence; Z82.3 Family history of stroke; R74.01 Elevation of levels of liver transaminase levels; Z95.5 Presence of coronary angioplasty implant and graft; Z79.02 Long term (current) use of antithrombotics/antiplatelets
CPT/HCPCS: 71045; 74177; 76705; 80048; 80053; 80074; 80076; 81001; 82248; 82550; 82962; 83036; 83605; 83735; 84100; 84443; 84484; 85025; 85610; 85730; 87040; 87086; 87428; 87807; 93005; 93306; 94002; 94640; 94668; 97162; 97166; 97530; 99252; 99283; 99285; J7030; J7040; Q9957; Q9967; A4216; G0463

== ENCOUNTER → 2023-08-25 | Outpatient (CLI) | payer MEDICARE, SELFPAY ==
[2018-05-01 14:21] VITALS: BMI 36.8
--- OUTSIDE RECORDS SUMMARY | 2023-08-25 11:24 | XMS RPT_ITS | CCD ---
Author Name Unknown Address [address] [place] [address] Organization [facility] Care Team Providers Care Firefighter Type One Name Role Phone ClaradeweylachelleSaida [facility] Viraj Emery DO, ANTHONY Primary [...] [doxycycline] Drug Allergy Eruption of skin (disorder) [facility] Work Phone: (4 sources) empagliflozin; Translations: [empagliflozin] Drug Allergy Shira infection of genital region (disorder) [facility] Work Phone: (4 sources) Lisinopril; Translations: [lisinopril] Drug Allergy Chronic cough (finding) [facility] Work Phone: Medications Current Medications Medication Drug [...] Heart rate 58 /min RYLEE LARA MD [facility] 10-23-2022 08:29-0400 Heart rate 55 /min RYLEE LARA MD [facility] 10-23-2022 07:32-0400 Body temperature 97.7 [degF] RYLEE LARA MD [facility] 10-23-2022 07:32-0400 Diastolic Blood Pressure Non-Invasive 61 1 RYLEE LARA MD [facility] 10-23-2022 07:32-0400 Heart rate 82 /min RYLEE LARA MD [facility] 10-23-2022 07:32-0400 Mean blood pressure 92 mm[Hg] RYLEE LARA MD [address] [place] [address] 10-23-2022 07:32-0400 Reason For Taking VItal Signs RYLEE LARA MD [address] [place] [address] 10-23-2022 07:32-0400 Respiratory rate 20 /min RYLEE LARA MD [address] [place] [address] 10-23-2022 07:32-0400 Systolic Blood Pressure Non-Invasive 165 1 RYLEE LARA MD [address] [place] [address] 10-23-2022 07:24-0400 Heart rate 51 /min RYLEE LARA MD [address] [place] [address] 10-23-2022 07:24-0400 Respiratory rate 20 /min RYLEE LARA MD [address] [place] [address] 10-23-2022 04:43-0400 Body temperature 97.88 [degF] RYLEE LARA MD [address] [place] [address] 10-23-2022 04:43-0400 Diastolic Blood Pressure Non-Invasive 67 1 RYLEE LARA MD [address] [place] [address] 10-23-2022 04:43-0400 Heart rate 62 /min RYLEE LARA MD [address] [place] [address] 10-23-2022 04:43-0400 Mean blood pressure 96 mm[Hg] RYLEE LARA MD [address] [place] [address] 10-23-2022 04:43-0400 Respiratory rate 16 /min RYLEE LARA MD [address] [place] [address] 10-23-2022 04:43-0400 Systolic Blood Pressure Non-Invasive 167 1 RYLEE LARA MD [address] [place] [address] 10-22-2022 23:40-0400 Body temperature 97.88 [degF] RYLEE LARA MD [address] [place] [address] 10-22-2022 23:40-0400 Diastolic Blood Pressure Non-Invasive 72 1 RYLEE LARA MD [address] [place] [address] 10-22-2022 23:40-0400 Mean blood pressure 101 mm[Hg] RYLEE LARA MD [address] [place] [address] 10-22-2022 23:40-0400 Systolic Blood Pressure Non-Invasive 167 1 RYLEE LARA MD [address] [place] [address] 10-22-2022 19:30-0400 Reason For Taking VItal Signs RYLEE LARA MD [address] [place] [address] 10-22-2022 18:59-0400 Heart rate 47 /min RYLEE LARA MD [address] [place] [address] 10-22-2022 18:51-0400 Reason For Taking VItal Signs RYLEE LARA MD [address] [place] [address] 10-22-2022 14:47-0400 Heart rate 45 /min RYLEE LARA MD [address] [place] [address] 10-22-2022 13:09-0400 Diastolic blood pressure 57 mm[Hg] RYLEE LARA MD [address] [place] [address] 10-22-2022 13:09-0400 Systolic blood pressure 127 mm[Hg] RYLEE LARA MD [address] [place] [address] 10-22-2022 12:40-0400 Diastolic blood pressure 58 mm[Hg] RYLEE LARA MD [address] [place] [address] 10-22-2022 12:40-0400 Systolic blood pressure 137 mm[Hg] RYLEE LARA MD [address] [place] [address] 10-22-2022 12:04-0400 Diastolic blood pressure 52 mm[Hg] RYLEE LARA MD [address] [place] [address] 10-22-2022 12:04-0400 Mean blood pressure 78 mm[Hg] RYLEE LARA MD [address] [place] [address] 10-22-2022 12:04-0400 Systolic blood pressure 132 mm[Hg] RYLEE LARA MD [address] [place] [address] 10-22-2022 11:35-0400 Mean blood pressure 85 mm[Hg] RYLEE LARA MD [address] [place] [address] 10-22-2022 11:05-0400 Mean blood pressure 85 mm[Hg] RYLEE LARA MD [address] [place] [address] 10-22-2022 10:15-0400 Respiratory Rate - Anes 0 br/min RYLEE LARA MD [address] [place] [address] 10-22-2022 10:10-0400 Respiratory Rate - Anes 0 br/min RYLEE LARA MD [address] [place] [address] 10-22-2022 10:05-0400 Respiratory Rate - Anes 0 br/min RYLEE LARA MD [address] [place] [address] 10-22-2022 09:50-0400 Body temperature 93.87 [degF] RYLEE LARA MD [address] [place] [address] 10-22-2022 09:45-0400 Body temperature 94.24 [degF] RYLEE LARA MD [address] [place] [address] 10-22-2022 09:40-0400 Body temperature 94.17 [degF] RYLEE LARA MD [address] [place] [address] 10-22-2022 05:46-0400 Blood Pressure Cuff Size RYLEE LARA MD [address] [place] [address] 10-22-2022 05:46-0400 Blood Pressure Location RYLEE LARA MD [address] [place] [address] 10-22-2022 05:46-0400 Blood Pressure Method RYLEE LARA MD [address] [place] [address] 10-22-2022 05:46-0400 Body height 170 cm RYLEE LARA MD [address] [place] [address] 04-11-2023 05:46-0400 Body weight 99.3 kg RYLEE LARA MD [address] [place] [address] 10-22-2022 05:46-0400 Body weight 34.36 kg/m2 RYLEE LARA MD [address] [place] [address] 10-15-2022 08:16-0400 Blood Pressure Cuff Size RYLEE LARA MD [address] [place] [address] 10-15-2022 08:16-0400 Blood Pressure Location RYLEE LARA MD [address] [place] [address] 10-15-2022 08:16-0400 Blood Pressure Method RYLEE LARA MD [address] [place] [address] 10-15-2022 08:16-0400 Body height 169 cm RYLEE LARA MD [address] [place] [address] 10-15-2022 08:16-0400 Body temperature 97.88 [degF] RYLEE LARA MD [address] [place] [address] 10-15-2022 08:16-0400 Body weight 99.6 kg RYLEE LARA MD [address] [place] [address] 10-15-2022 08:16-0400 Diastolic Blood Pressure Non-Invasive 70 1 RYLEE LARA MD [address] [place] [address] 10-15-2022 08:16-0400 Heart rate 64 /min RYLEE LARA MD [address] [place] [address] 10-15-2022 08:16-0400 Systolic Blood Pressure Non-Invasive 121 1 RYLEE LARA MD [address] [place] [address] 02-11-2022 10:16-0400 Diastolic Blood Pressure NBP [address] SHAUN BOOGIE MD [facility] 02-11-2022 10:16-0400 Heart rate 61 /min DR SHAUN BOOGIE MD [facility] 02-11-2022 10:16-0400 Respiratory rate 17 /min DR SHAUN BOOGIE MD [facility] 02-11-2022 10:16-0400 Systolic Blood Pressure NBP [address] SHAUN BOOGIE MD [facility] 02-11-2022 10:10-0400 Diastolic Blood Pressure NBP [address] SHAUN BOOGIE MD [facility] 02-11-2022 10:10-0400 Heart rate 63 /min DR SHAUN BOOGIE MD [facility] 02-11-2022 10:10-0400 Respiratory rate 14 /min DR SHAUN BOOGIE MD [facility] 02-11-2022 10:10-0400 Systolic Blood Pressure NBP [address] SHAUN BOOGIE MD [facility] 02-11-2022 10:02-0400 Diastolic Blood Pressure NBP [address] SHAUN BOOGIE MD [facility] 02-11-2022 10:02-0400 Heart rate 63 /min DR SHAUN BOOGIE MD [facility] 02-11-2022 10:02-0400 Respiratory rate 17 /min DR SHAUN BOOGIE MD [facility] 02-11-2022 10:02-0400 Systolic Blood Pressure NBP [address] SHAUN BOOGIE MD [facility] 02-11-2022 08:36-0400 Body height [address] SHAUN BOOGIE MD [facility] 02-11-2022 08:36-0400 Body temperature 97.52 [degF] DR SHAUN BOOGIE MD [facility] 02-11-2022 08:36-0400 Body weight [address] SHAUN BOOGIE MD [facility] 02-11-2022 08:36-0400 diastolic 70 mm[Hg] DR SHAUN BOOGIE MD [facility] 02-11-2022 08:36-0400 Heart rate 52 /min DR SHAUN BOOGIE MD [facility] 02-11-2022 08:36-0400 systolic 153 mm[Hg] DR SHAUN BOOGIE MD [facility] 12-17-2021 09:02-0400 Diastolic Blood Pressure NBP [address] SHAUN BOOGIE MD [facility] 12-17-2021 09:02-0400 Heart rate 56 /min DR SHAUN BOOGIE MD [facility] 12-17-2021 09:02-0400 Respiratory rate 15 /min DR SHAUN BOOGIE MD [facility] 12-17-2021 09:02-0400 Systolic Blood Pressure NBP [address] SHAUN BOOGIE MD [facility] 12-17-2021 08:46-0400 Diastolic Blood Pressure NBP [address] SHAUN BOOGIE MD [facility] 12-17-2021 08:46-0400 Heart rate 59 /min DR SHAUN BOOGIE MD [facility] 12-17-2021 08:46-0400 Respiratory rate 14 /min DR SHAUN BOOGIE MD [facility] 12-17-2021 08:46-0400 Systolic Blood Pressure NBP [address] SHAUN BOOGIE MD [facility] 12-17-2021 08:35-0400 Diastolic Blood Pressure NBP [address] SHAUN BOOGIE MD [facility] 12-17-2021 08:35-0400 Heart rate 57 /min DR SHAUN BOOGIE MD [facility] 12-17-2021 08:35-0400 Respiratory rate 16 /min DR SHAUN BOOGIE MD [facility] 12-17-2021 08:35-0400 Systolic Blood Pressure NBP [address] SHAUN BOOGIE MD [facility] 12-17-2021 07:27-0400 Body height [address] SHAUN BOOGIE MD [facility] 12-17-2021 07:27-0400 Body temperature 96.62 [degF] DR SHAUN BOOGIE MD [facility] 12-17-2021 07:27-0400 Body weight [address] SHAUN BOOGIE MD [facility] 12-17-2021 07:27-0400 Body weight 35.29 kg/m2 DR SHAUN BOOGIE MD [facility] 12-17-2021 07:27-0400 Diastolic blood pressure 56 mm[Hg] DR SHAUN BOOGIE MD [facility] 12-17-2021 07:27-0400 Heart rate 56 /min DR SHAUN BOOGIE MD [facility] 12-17-2021 07:27-0400 Systolic blood pressure 103 mm[Hg] DR SHAUN BOOGIE MD [facility] Encounters Encounter Date Encounter Type Care Provider Facility Start: 11-28-2022 End: 11-28-2022 ambulatory RYLEE LARA MD Facility:A Start: 10-22-2022 End: 10-23-2022 Evaluation and management of inpatient RYLEE LARA MD Facility:A Start: 10-22-2022 End: 10-23-2022 Evaluation and management of inpatient RYLEE LARA MD [facility] Start: 10-15-2022 End: 10-16-2022 ambulatory RYLEE LARA MD Facility:A Start: 10-15-2022 End: 10-15-2022 Admission to establishment RYLEE LARA MD [facility] Start: 02-11-2022 End: 02-12-[address] SHAUN BOOGIE MD Facility:B Start: 02-11-2022 End: 02-11-[address] SHAUN BOOGIE MD [facility] Start: 12-17-2021 End: 12-17-[address] SHAUN BOOGIE MD [facility] Start: 05-08-2017 Tobin Cintron [facility]ly [facility] Facility:[facility] Procedures Date Procedure Procedure Detail Performing Clinician Start: 02-11-[address] SHAUN BOOGIE MD Start: 06-02-2021 CT angiography of ch est with contrast RYLEE LARA MD Immunizations Immunization Date Immunization Notes Care Provider Fa cility 04-13-2022 influenza virus vacc ine, unspecified formulation RYLEE LARA MD [facility] 04-13-2022 SARS-CoV-2 mRNA (tozinameran) vaccine RYLEE LARA MD [facility] 10-31-2021 SARS-CoV-2 mRNA (wkrvyvnfdvn-stsq-fcykmfn ) vaccine RYLEE LARA MD [facility] 05-10-2021 influenza virus vacc ine, unspecified formulation RYLEE LARA MD [facility] 11-30-2020 SARS-CoV-2 (COVID-19 ) mRNA-1273 vaccine RYLEE LARA MD [facility] 11-02-2020 SARS-CoV-2 (COVID-19 ) mRNA-1273 vaccine RYLEE LARA MD [facility] 05-03-2020 influenza virus vacc ine, unspecified formulation RYLEE LARA MD [facility] 04-09-2018 influenza virus vacc ine, unspecified formulation RYLEE LARA MD [facility] 04-10-2017 influenza virus vacc ine, unspecified formulation RYLEE LARA MD [facility] 10-10-2016 zoster vaccine, live RYLEE ZIMMERMAN MD [facility] 05-06-2016 influenza virus vacc ine, unspecified formulation RYLEE LARA MD [facility] 04-12-2016 pneumococcal polysaccharide vaccine, 23 valent RYLEE LARA MD [facility] 04-12-2016 tetanus toxoid, redu andrea diphtheria toxoid, and acellular pertussis vaccine, adsorbed RYLEE LARA MD [facility] 05-04-2015 influenza virus vacc ine, unspecified formulation RYLEE LARA MD [facility] 02-08-2015 pneumococcal conjuga te vaccine, 13 valent RYLEE LARA MD [facility] 04-21-2014 influenza virus vacc ine, unspecified formulation RYLEE LARA MD [facility] Payers Date Payer Category Payer Medicare [id number] 2022 Private Health Insurance [id number] 1950 Unknown [id number] 1950 Unknown [id number] [id number] 1950 Unknown [id number] 1950 Unknown [id number] Unknown [id number] Social History Date Type Detail Facility Start: 12-17-2021 Tobacco smoking status Ex-smoker (fi nding) [facility] Sex Assigned At Male [facility] Functional Status Date Assessment Result Facility 10-23-2022 Functional Status Single level home [facility] 10-23-2022 Functional Status [facility] 10-22-2022 Functional Status [facility] 10-22-2022 Functional Status [facility] 10-22-2022 Functional Status 100 [facility] 10-22-2022 Functional Status Lunch Percent 100 [facility] 10-22-2022 Functional Status Hospital bed [facility] 10-22-2022 Functional Status Maintained [facility] 10-15-2022 Functional Status Sensory Defici ts Hearing deficit, left ear, Hearing deficit, right ear [facility] 02-11-2022 Functional Status Precautions maintained [facility] 02-11-2022 Functional Status Maintained, Less than 8 hours [facility] 12-17-2021 Functional Status Patient Identi fied Identification band, Verbal [facility] 12-17-2021 Functional Status Maintained, More than 8 hours [facility] Mental Status Date Assessment Result Facility 10-23-2022 Mental Status Orientation Oriented x 4 [facility] 10-23-2022 Mental Status [facility] 10-22-[address] [facility] 02-11-2022 Mental Status Oriented x 4, Forgetful [facility] 12-17-2021 Mental Status Oriented x 4 [facility] Clinical Notes 12-17-2021 to 10-23-2022 Note [...] including vitamins, herbs, eye drops, creams, and tpts-fmx-tmrblmc medicines. Any problems you or family members [...] provider tells you to take them. ?Taking xjqt-rmn-wjcyltx medicines, vitamins, herbs, and supplements. You may [...] X-ray dye out of your body. Take ozrn-nsr-vvuxmos and prescription medicines only as told by [...] 11/11/2017 Document Revised: 06/12/2018 Document Reviewed: 11/11/2017 [employer] Patient Education 2020 [employer]. 10/23/2022 09:57:48 Left Atrial Appendage Closure Device [...] and water are not available, use hand medical esthetician. ?Change your dressing as told by your [...] or bump that may develop. Medicines Take nmag-vuj-ajoiaqt and prescription medicines only as told by [...] 10/31/2017 Document Revised: 08/23/2019 Document Reviewed: 10/31/2017 [employer] Patient Education 2020 [employer] Follow Up Care 10/03/2022 10:08:38 With:TED SKY PSYCHIATRIC ASSISTANT-SWEATER OPERATOR Address: [address] [place] [address] [address] [facility] [place] [address] [phone] When:11/15/2022 13:00:00 Comments:HOSPITAL FOLLOW-UP FROM [facility] 10-23-2022 Note Discharge Instructions Thank you for allowing [facility] to assist you with your healthcare needs. [...] the office with any questions or concerns [phone] (office) or Ted (nurse practitioner) [phone] Scheduled Follow-Up Appointments Appointment Type When With Where Contact InformationCV OV Structural Heart 11/15/2022 01:00 PM EDT TED SKY [facility] Follow Up Appointments Follow Up with TED SKY When 11/15/2022 01:00 PM EDT Why: HOSPITAL FOLLOW-UP FROM [facility] Where: [address] [facility] [place] [address]- [phone] The Following Activity and Diet Have Been [...] Taking predniSONE (prednisone 10mg tab (TAPER)) Taper 92-15-52-30-20-10-5 x 1 day by mouth Once a [...] including vitamins, herbs, eye drops, creams, and urhm-xlp-uhkjffo medicines. Any problems you or family members [...] tells you to take them. ? Taking ycxh-wao-gwcfdcm medicines, vitamins, herbs, and supplements. You may [...] X-ray dye out of your body. Take fvmk-vcy-agchdsb and prescription medicines only as told by [...] 11/11/2017 Document Revised: 06/12/2018 Document Reviewed: 11/11/2017 [employer] Patient Education 2020 [employer]. Left Atrial Appendage Closure Device Implantation, Care [...] and water are not available, use hand medical esthetician. ? Change your dressing as told by [...] or bump that may develop. Medicines Take fche-wfr-adlldfg and prescription medicines only as told by [...] Document Reviewed: 10/31/2017 Else[employer] Patient Education 2020 [employer] Additional Information VACCINATE! IT SAVES LIVES! Members of the community who have not yet received the COVID-19 vaccine and would like to receive it can visit one of [facility] vaccine clinics. There are many vaccine clinic locations within the [facility]. For locations and available times, please visit [email or web address].o pro.gov/. It is important to note that some COVID mobile vaccine clinics are held outdoors and may be canceled in rainy or stormy conditions. To learn more about pediatric vaccinations (ages 5-11), we invite you to visit the [facility] webpage. https://www.[email or web address].[email or web address]/p [email or web address]-Beiva-Esospjkzprc-Freq gkzdte-Xuaew-Rqnrmgfsv.html To learn more about the COVID-19 vaccine, we invite you to visit the CDC website for a list of frequently asked questions. https://www.cdc.gov/coronavirus/ 2019-ncov/vaccines/faq.html [facility] Patient Portal Access Instructions: Stay connected with your healthcare team and access your personal medical information anytime with the [facility] Patient Portal.If you would like a full copy of your medical records, please contact the [facility] Medical Records Department, Friday through Friday between 8a.m. and 4:30p.m. Please follow the directions below to access the portal: 1.Access the email account you provided upon registration to the hospital.2.Look for an invitation email from [facility].3.Open the email and access the invitation link: Accept Invitation to [facility].Fill in the required lim to create your account. Sign into [email or web address] with your username and password that you [...] you will allow to register on the [facility] Patient Portal for access to your information. You can also access the [facility] Patient Portal on the [employer] vladimir. Simply click on Health Records under [...] Call your local pharmacy or go to http://Organic [email or web address] Management.Collective Intellect/1I3Ty4p to find one close to you.3.Make use of household items: Use cat litter or old coffee grounds to dispose medications if other options are not available. Mix your drugs with these household products, seal them in an airtight container and throw it into the garbage. Call [facility]: [phone] to be sure your drugs can be [...] aware that I should contact my doctor. Patient/Instructional Coach Signature: Date/Time: Relationship to Patient: Witness Name/Signature: Date/Time: [facility] 10-22-2022 Procedure note Left Atrial Appendage Occlusion [...] fibrillation in a patient with elevated thromboembolic [id number] score. Elevated bleeding HAS-BLED score and intolerant, unwilling or unsuitable to take long-term anticoagulation. Diagnosis(Active) [] Postoperative Diagnosis:Same Operation/Procedure: Left atrial appendage closure device (Watchman) placement. Real-time ultrasonic visualization of the bilateral femoral veins. Intracardiac echocardiography Trans septal cardiac catheterization of an intact interatrial septum. Left atrial pressure measurement as well as left atrial angiogram. Physician Digital Content Specialist(s):First: Rylee Lara MD Fellow: Viraj Sotomayor MD Primary Care Physician:Irma Orr MD Referring Physician:Dr. Reese Referring Lead Athlete:Dr. Reese Shared Decision Physician:Dr. Reese Imaging Lead Athlete:Rylee Lara MD Type of Anesthesia:General Estimated Blood [...] in the left atrial chamber as the adult secondary education instructor was assisting in sheath and pigtail support. [...] the appendage. Testing was thereafter performed. Position, Kinards, Size and Seal (PASS) criteria were confirmed. [...] (mm): 0 : []45 : 2190 : 17333 : 20 Compression (%):0 : []45 : 2890 : 84600 : 24 The device was successfully released via a counterclockwise turn on the delivery system with no evidence of any dislodgment. A final angiogram was performed via the sheath was performed with adequate device positioning. The sheath was retracted into the right atrial chamber leaving a minimal residual pleural septal defect at best. 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 Family History: Aneurysm Brother Heart disease Brother Diabetes mellitus type 2 Mother Father Brother Stroke Mother CAD - Coronary artery disease Mother COPD (Chronic Obstructive Pulmonary Disease) Assessment Test scale Father Procedure history: Colonoscopy ([id number]) on 02/11/[address] angiography of chest with contrast ([id number]) on 06/02/2021 at 71 Years. Comments: 07/10/2022 13:43 Theodora Aguirre RN From [facility]: No PE. Findings are most c/w mild pulmonary edema and CHF superimposed underlying chronic lung disease. CAD. Mild cardiac enlargement. Cardiac catheterization ([id number]) on 02/06/2021 at 70 Years. Comments: 07/10/2022 13:31 Theodora Aguirre RN [facility]: Normal LV end diastolic pressure. Normal LV size, wall motion, and systolic function. LVEF 65%. Torres Martinez multivessel CAD. RCA stents patent. No mitral valve insufficiency appreciated. Echocardiogram ([id number]) on 02/06/2021 at 70 Years. Comments: 07/10/2022 13:37 Theodora Aguirre RN From [facility]: Normal LVEF of 65%. Trivial mitral insuff. Trivial tricuppid valve insuff. Mild aortic valve stenosis. Diastolic function is indeterminate. Unable to estimate RV systolic pressure/pulmonary artery pressure due to technically difficult study. Cardiac catheterization ([id number]) on 05/01/2018 at 68 Years. Comments: 07/10/2022 13:23 Theodora Aguirre RN Cardiac acth with PCI/stent of the proximal RCA History of right hip replacement ([id number]). Comments: 10/15/2022 8:24 TORRIE Sharma x2 EGD (esophagogastroduodenoscopy) gastric outlet reduction ([id number]). Prescription event monitoring ([id number]). Comments: 07/10/2022 13:39 Theodora Aguirre RN 02/01/21 to 03/02/21 [employer] Event monitor Right hip injury ([id number]). Comments: 10/15/2022 8:23 TORRIE Sharma Pinning of [...] Weight Lbs 218.5 lb Weight Method Actual [place] Body Weight 65.94 kg Body Mass Index [...] Method Explanation, Printed materials Preferred Written Language Thai Preferred Spoken Language Thai Pre Procedure/Surgery Education Appropriate expectations, Date/Time of procedure/surgery, Surgical skin prep, Transfer to ICU after surgery Procedure/Surgical Teaching Evaluation Verbalizes/Nonverbally indicates understanding Procedure/Surgery Testing Education Lab tests 10/22/2022 5:46 EDT Designated Person #1 We May Share ESMER Chicas [phone] Designated Person #1 Relationship Spouse Privacy Restrictions Requested None Height 170.0 cm Height in inches 66.9 inch(es) Admission Weight 99.3 kg Weight Lbs 218.5 lb Weight Method Actual [place] Body Weight 65.94 kg Body Mass Index [...] Status N/A Skin Temperature Warm Skin Description Zwolle, Dry Skin Integrity Intact Mucous Membrane Color Zwolle Skin Moisture General Dry IV Present Present [...] (Modified) Advanced Directives Yes Advance Directive Type [place] Durable Power of Auto Appraiser for [facility] [place], [place] Declaration (Living Will) Advance Directive Location [...] Evaluation Verbalizes/Nonverbally indicates understanding Preferred Written Language Thai Preferred Spoken Language Thai Pre Procedure/Surgery Education Appropriate expectations, Date/Time of [...] EDT Stella BRAVO . Assessment and Plan [place] Society of Anesthesiologists (ASA) physical status classification: [...] his compromised respiratory status secondary to COPD. Lamp Inspector has recommended MAC anesthesia if possible. Cardiology [...] HENRY LEE MD on 10/22/2022 08:07 AM [facility] 02-11-2022 Hospital Discharg e instructions Patient Education [...] before eating solid foods. General instructions Take sqhg-fwz-htwzupp and prescription medicines only as told by [...] 10/20/2016 Document Revised: 09/28/2018 Document Reviewed: 10/20/2016 [employer] Patient Education 2020 [employer]. 02/11/2022 10:12:09 Colonoscopy, Adult, Care After, Hlcl-sy-Mxvu Colonoscopy, Adult, Care After This sheet gives [...] are soft and easy to digest. Take bmxl-uwy-jvtrsfj or prescription medicines only as told by [...] 08/02/2011 Document Revised: 04/30/2018 Document Reviewed: 03/24/2017 [employer] Patient Education [employer]. Follow Up Care 02/01/2022 07:36:55 With:SHAUN BOOGIE MD Address: [address] [place] [address]- [phone] When: Unknown Comments:office will call with lab results and any follow up if needed [facility] 02-11-2022 Summary of episod e note Discharge Instructions Thank you for allowing [facility] to assist you with your healthcare needs. The following is important discharge information regarding your hospital visit. Your Care Team VIRAJ RAMIREZ DO What to do next Follow Up Appointments Follow Up with SHAUN BOOGIE MD When Why: office will call with lab results and any follow up if needed Where: [address] [place] [address] [phone] Allergies Jardiance doxycycline lisinopril Medications Please ask [...] before eating solid foods. General instructions Take tdla-pdq-sqrvpyb and prescription medicines only as told by [...] 10/20/2016 Document Revised: 09/28/2018 Document Reviewed: 10/20/2016 [employer] Patient Education 2020 [employer]. Colonoscopy, Adult, Care After This sheet gives [...] are soft and easy to digest. Take fmhu-sko-mfsqqnp or prescription medicines only as told by [...] 08/02/2011 Document Revised: 04/30/2018 Document Reviewed: 03/24/2017 [employer] Patient Education 2020 [employer]. Additional Information VACCINATE! IT SAVES LIVES! Members of the community who have not yet received the COVID-19 vaccine and would like to receive it can visit one of [facility] vaccine clinics. There are many vaccine clinic locations within the [facility]. For locations and available times, please visit [email or web address] [email or web address] It is important to note that some COVID mobile vaccine clinics are held outdoors and may be canceled in rainy or stormy conditions. To learn more about pediatric vaccinations (ages 5-11), we invite you to visit the [facility] webpage. [email or web address] [email or web address]-Nzuzd-Pgirjsrxbsh-Freq khfrzx-Boapk-Kzydslhxf.html To learn more about the COVID-19 vaccine, we invite you to visit the [facility] website for a list of frequently asked questions. [email or web address] [email or web address] [facility] Patient Portal Access Instructions: Stay connected with your healthcare team and access your personal medical information anytime with the [facility] Patient Portal.If you would like a full copy of your medical records, please contact the [facility] Medical Records Department, Friday through Friday between 8a.m. and 4:30p.m. Please follow the directions below to access the portal: 1.Access the email account you provided upon registration to the hospital.2.Look for an invitation email from [facility].3.Open the email and access the invitation link: Accept Invitation to [facility].Fill in the required lim to create your [...] you will allow to register on the [facility] Patient Portal for access to your information. You can also access the [facility] Patient Portal on the [employer]. Simply click on Health Records under Health [...] Call your local pharmacy or go to http://Organic Waste Management.Collective Intellect/9X3Zu7z to find one close to you.3.Make use of household items: Use cat litter or old coffee grounds to dispose medications if other options are not available. Mix your drugs with these household products, seal them in an airtight container and throw it into the garbage. Call [facility]: [phone] to be sure your drugs can be [...] Care, Care After Colonoscopy, Adult, Care After, Tfzs-lh-Nagu Medication Leaflets My discharge plan and instructions have been reviewed and explained to me and I,ESTEFANY PEPPER understand my current condition and have read and understand these discharge instructions. I have received a written copy of the plan/instructions. If I have questions, I am aware that I should contact my doctor. Patient/Instructional Coach Signature: Date/Time: Relationship to Patient: Witness Name/Signature: Date/Time: [facility] 02-11-2022 Anesthesiology Consult note Patient: ESTEFANY PEPPER Age: 71 years Sex: Male : 1950 Associated Diagnoses: None Author: YRN HOANGWINDSHIELD TECHNICIAN Preoperative Information Time of last solid food [...] list: Medical Memory loss / SNOMED CT 50920390 / Confirmed Hypertension / SNOMED CT 5896231870 / Confirmed COPD with emphysema / SNOMED CT 596135610 / Confirmed, Active Problems (14) Afib Alzheimer disease CHF (congestive heart failure) COPD (chronic obstructive pulmonary disease) COPD with emphysema DM2 (diabetes mellitus, type 2) GERD (gastroesophageal reflux disease) GIB (gastrointestinal bleeding) HTN (hypertension) Hypertension Memory loss Oxygen dependent Pulmonary hypertension Sleep apnea with use of nocturnal bilevel positive airway pressure (BPAP) Histories Past Medical History: Resolved COVID ([id number]): Resolved. Family History: Diabetes mellitus type 2 Mother Father Brother CAD - Coronary artery disease Mother Procedure history: Colonoscopy ([id number]) on 02/11/2022 at 71 Years. Placement of stent in cardiac conduit ([id number]) in 2017 at 67 Years. History of right hip replacement ([id number]). EGD (esophagogastroduodenoscopy) gastric outlet reduction (0973072328). History of revision of right total hip arthroplasty (7190343330). Social History Social & Psychosocial Habits Alcohol [...] Signs(last 24 hrs) Last Charted Heart Rate Logazwhnn72 bpm (FEB 11 09:50) Resp Rate 11 br/min (FEB 11 09:50) KYQ972 mmHg (FEB 11 09:45) DBP68 mmHg (FEB 11 09:45) Measurements from flowsheet : Measurements 02/11/2022 8:36 EDT Height 170 cm Admission Weight 102 kg Weight Method Stated [place] Body Weight 65.94 kg Pain assessment: Pain [...] EDT Lactated Ringers Injection 100 mL mL [facility] Procedure Record [facility] Procedure Record 02/11/2022 9:50 EDT [...] Surgeon SN - CAt - Role Performed Prison Teacher 1 SN - CAt - Role Performed Exercise Equipment Specialist SN - CAt - Role Performed WINDSHIELD TECHNICIAN SN - CAt - Role Performed Exercise Equipment Specialist 02/11/2022 8:46 EDT Lactated Ringers Injection Begin Bag 1,000 mL mL 02/11/2022 8:36 EDT Designated Person #1 We May Share ESMER Chicas [phone] Designated Person #1 Relationship Spouse Privacy Restrictions Requested None Height 170 cm Admission Weight 102 kg Weight Method Stated [place] Body Weight 65.94 kg Temperature Temporal Artery 36.4 DegC Apical Heart Rate 52 bpm LOW Respiratory Rate 15 br/min Systolic BP Left Arm 153 mmHg HI Diastolic BP Left Arm 70 mmHg Primary Pain Intensity 0 Pain Scale Type 0-10 Pain scale Nail Bed Color Zwolle Heart Rhythm Regular Oxygen Therapy Room air [...] Yes Advanced Directives Yes Advance Directive Type [place] Durable Power of Auto Appraiser for [place], [place] Declaration (Living Will) Advance Directive Location [...] Weeks No Weight Loss No Allergies Yes 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 Assessment and Plan [place] Society of Anesthesiologists (ASA) physical status classification: Class III. Anesthetic Preoperative Plan Anesthetic technique: MAC. Informed consent: signed by patient. Digitally Signed by YRN HOANG APRN-JOSE DAVID on 02/11/2022 09:55 AM [facility] 02-11-2022 Anesthesiology Consult note Patient: ESTEFANY PEPPER [...] by YRN HOANG on 02/11/2022 09:54 AM [facility] ADMISSION HISTORY AN D PHYSICIAL CHIEF COMPLAINT: HISTORY OF PRESENT ILLNESS: REVIEW OF SYSTEMS: ACTIVE PROBLEMS: (13) Afib (23257752) CHF (congestive heart failure) (89631937) COPD (chronic obstructive pulmonary disease) (16332236) COPD with emphysema (857300746) DM2 (diabetes mellitus, type 2) (845369490) GERD (gastroesophageal reflux disease) (283789766) GIB (gastrointestinal bleeding) (867329081) HTN (hypertension) (6301877193) Hypertension (0895483126) Memory loss (31953426) Oxygen dependent (1512883153) Pulmonary hypertension (413171311) Sleep apnea with use of nocturnal bilevel positive airway pressure (BPAP) (470126286) MEDICATIONS: Active Inpt Meds: None Active PRN Meds: None One Time Meds: None Active IV Meds: Lactated Ringers Infusion 1,000 mL (LR 1,000 mL) Start: 12/17/21 7:39:00 EDT, Rate: 50 mL/hr, 12/17/21 7:39:00 EDT ALLERGIES: (3) doxycycline Jardiance lisinopril FAMILY HISTORY: SOCIAL HISTORY: PHYSICAL EXAM: VITALS: JqwcusSbyzARZzedzARSiE1YVV4HgzoLh(kg) 12/17 07:2735.9103/12674975WP70/86710.0 24 Hr Tmax: 35.9 at 12/17 07:27 36 Hr Tmax: 35.9 at 12/17 07:27 Vital Signs are the last 5 in the past 48 hours. Weights display the last 5 within 7 days. Initial Wt: 12/17 102.0 kg 224 lb Current Wt: 12/17 102.0 kg 224 lb GENERAL: HEENT: CARDIOVASCULAR: RESPIRATORY: ABDOMEN: EXREMETIES: NEUROLOGICAL: PSYCHIATRIC: LABS: 36hr Labs 12/17 0727 Blood Glucose, Wqkredavi847Q Blood Glucose, Iykoeofvf630Q DIAGNOSTICS: IMPRESSION: PLAN: History and Physical Update I have examined the patient; reviewed the H&P and there are no changes to the H&P unless noted below. [facility] 06-06-2022 Hospital Discharge instructions Patient Education 12/17/2021 [...] before eating solid foods. General instructions Take qafm-tjt-laoxisb and prescription medicines only as told by [...] 10/20/2016 Document Revised: 09/28/2018 Document Reviewed: 10/20/2016 [employer] Patient Education 2020 [employer]. 12/17/2021 08:55:28 Duodenal Biopsy, Care After Duodenal [...] Follow these instructions at home: Medicines Take ivoa-snm-geofejr and prescription medicines only as told by [...] 07/26/2016 Document Revised: 02/16/2019 Document Reviewed: 02/16/2019 [employer] Patient Education 2020 [employer]. 12/17/2021 08:55:28 Helicobacter Pylori Antibodies Test Helicobacter [...] including vitamins, herbs, eye drops, creams, and ohwk-yyj-zmwakdn medicines. How are the results reported? Your [...] 07/24/2005 Document Revised: 06/12/2018 Document Reviewed: 02/10/2018 [employer] Patient Education 2020 [employer]. 12/17/2021 08:55:28 9 - AO Minor Esophagogastroduodenoscopy [...] BOOGIE MD Address: [address] [place] [phone] When: Unknown Comments:office will call with biopsy results [facility] Evaluation + Plan note Future Appointments Appointment Date:10/22/2022 11:30:00 AM Scheduled Provider: Location:Heart Lab Appointment Type:CV Procedure - Heart Lab/Hybrid OR [facility] Evaluation + Plan note Future Appointments Appointment Date:11/15/2022 01:00:00 PM Scheduled Provider:TED SKY Location:[facility] Appointment Type:CV OV Structural Heart [facility] Hospital course Narrative No data available for this section [facility] Hospital Discharge instructions No data available for this section [facility] Note* RYLEE LARA MD: SIGN, VERIFY Event Display: Left Atrial Closure Device-CV [facility] Progress note No data available for this section [facility] Summary Purpose Family History No Family History Records FoundNo Family History Records Found Advance Directives No Advanced Directives Records FoundNo Advanced Directives Records Found Additional Source Comments (unrecognized sect ion and content) No Status Records FoundNo Status Records Found INFORMATION SOURCE (unrecogn ized section and content) DATE CREATED AUTHOR AUTHOR'S ORGANIZ ATION 12/20/2022 [facility] ([place]) Care Team (unrecognized sect ion and content) Personnel Name: VIRAJ RAMIREZ DO Address: [address] [place] [address] Care Team Personnel Name: IRMA ORR MD Member Role: Primary Care Physician Address: Address: [address] [address]- [place] Care Team Related Persons Name: DANIEL PEPPER Address: Home [address] [place] [address] [place], [place] [phone] Care Team Personnel Name: IRMA ORR MD Member Role: Primary Care Physician Address: Address: [address] [place] [address]- [place] Care Team Related Persons Name: DANIEL PEPPER Address: Home [address] [place] [address] [address] [place], [place] [phone] Care Team (unrecognized sect ion and content) Care Team Personnel Name: VIRAJ RAMIREZ DO Position: P4 Physician - Primary Care Member Role: Primary Care Physician Address: Address: [address] [place] [address] Care Team Related Persons Name: DANIEL PEPPER Address: [address] [place], [phone] FOR RECORDS PERTAINING TO PATIENTS WHO ARE [...] BE BASED ON THE PRIMARY CLINICAL RECORDS. The [employer] provides no warranty or guarantee of the accuracy or completeness of information in this document.
[2023-08-25 12:39] LABS: Hematocrit 35.7 % (40-54); Hemoglobin 11.6 g/dL (13.0-16.5); Mean Corp Hgb Conc 32.5 g/dL (32-36); Mean Corpuscular Hgb 31.4 pg (27.0-32.0); Mean Corpuscular Volume 96.5 fL (80-94); Mean Platelet Vol. 9.4 fl (6.2-12.0); Platelet Count 271 K/mm3 (150-450); RBC Distribution Width CV 13.5 % (11.6-14.6); RBC Distribution Width SD 47.8 fl (35.1-43.9); White Blood Count 8.6 K/mm3 (4.4-11.0)
[2023-08-25 14:06] LABS: ALB/GLOB Ratio 1.3 RATIO (0.9-2.4); AST(SGOT) 12 U/L (15-37); Alanine Aminotransfer ALT/SGPT 24 U/L (16-61); Albumin, Serum 4.4 g/dL (3.2-5.0); Alkaline Phosphatase 99 U/L (45-117); Anion Gap 11 (5-15); BUN 11 mg/dL (7-18); BUN/Creat Ratio 11.6 RATIO (10-20); Calcium,Total 9.6 mg/dL (8.5-10.1); Chloride 104 mmol/L (98-107); Creatinine, Serum 0.94 mg/dL (0.70-1.30); EST Glomerular Filtration Rate 84 mL/min (>60); Est Glom Filt Rate - Afr Amer 101 mL/min (>60); Ferritin 26 ng/mL (26-388); Globulin 3.3 g/dL (2.2-4.2); Glucose 133 mg/dL (74-106); Iron 49 ug/dL (65-175); Potassium 4.2 mmol/L (3.5-5.1); Protein, Total 7.7 g/dL (6.4-8.2); Sodium Level 140 mmol/L (136-145)
== END | disposition home or self-care (01) ==
LOC: MFPLAB 11:10
PROVIDERS: PCP Family Medicine; Visit Provider Family Medicine
DX: R79.89 Other specified abnormal findings of blood chemistry (principal)
CPT/HCPCS: 36415; 80053; 82728; 83540; 85027

== ENCOUNTER → 2023-11-04 | Outpatient (CLI) | payer MEDICARE, SELFPAY ==
[2018-05-01 14:21] VITALS: BMI 36.8
--- NOTE | 2023-11-04 13:14 | CT_ITS ---
EXAM: CT CHEST WITHOUT INTRAVENOUS CONTRAST CLINICAL INDICATION: NODULE TECHNIQUE: Helically acquired images were obtained of the chest without intravenous contrast. This CT exam was performed using one or more of the following dose reduction techniques: automated exposure control, adjustment of the mA and/or kV according to patient size, and/or use of iterative reconstruction technique. COMPARISON: PET CT scan 06/26/2022, CT Chest dated 11/30/2022 FINDINGS: LUNGS AND PLEURAL SPACES: Stable emphysematous changes of the lungs. No evidence of a lung mass or suspicious pulmonary nodule. No pleural effusion or thickening. No pneumothorax. HEART: Stable normal heart size. Minimal residual pericardial thickening. MEDIASTINUM: Normal. No mediastinal or hilar adenopathy. Esophagus is unremarkable. No hiatal hernia. BONES/JOINTS: No suspicious lytic or blastic abnormality. VASCULATURE: Normal. No aortic aneurysm. TUBES, LINES AND DEVICES: Watchman device remains in place. CT/Chest without Contrast IMPRESSION: 1. No evidence of recurrent neoplasm. 2. Stable pulmonary emphysema. Electronically Signed: Tl Clarke MD at 11:43 EDT ,
== END | disposition home or self-care (01) ==
LOC: CT 13:11
PROVIDERS: PCP Family Medicine; Referring Provider Internal Medicine Pulmonary Disease; Visit Provider Internal Medicine Pulmonary Disease
DX: R91.8 Other nonspecific abnormal finding of lung field (principal)
CPT/HCPCS: 71250

== ENCOUNTER → 2023-12-01 | Outpatient (CLI) | payer MEDICARE, SELFPAY ==
[2018-05-01 14:21] VITALS: BMI 36.8
[2023-12-01 11:41] LABS: AST(SGOT) 21 U/L (15-37); Alanine Aminotransfer ALT/SGPT 31 U/L (16-61); Albumin, Serum 4.2 g/dL (3.2-5.0); Alkaline Phosphatase 106 U/L (45-117); Bilirubin, Direct 0.17 mg/dL (0.00-0.30); Cholesterol 131 mg/dL (200); Globulin 3.3 g/dL (2.2-4.2); High Density Lipoprotein 35 mg/dL; Protein, Total 7.5 g/dL (6.4-8.2); Triglycerides 386 mg/dL; Very Low Density Lipoprotein 77 mg/dL (5-40)
== END | disposition home or self-care (01) ==
LOC: MTLAB 09:12
PROVIDERS: PCP Family Medicine; Referring Provider Nurse Practitioner Gerontology; Visit Provider Nurse Practitioner Gerontology
DX: I25.10 Atherosclerotic heart disease of native coronary artery without angina pectoris (principal); E61.1 Iron deficiency
CPT/HCPCS: 36415; 80061; 80076

== ENCOUNTER → 2024-02-23 | Outpatient (CLI) | payer MEDICARE, SELFPAY ==
[2018-05-01 14:21] VITALS: BMI 36.8
[2024-02-23 15:31] LABS: Hematocrit 36.7 % (40-54); Hemoglobin 12.2 g/dL (13.0-16.5); Mean Corp Hgb Conc 33.2 g/dL (32-36); Mean Corpuscular Hgb 32.9 pg (27.0-32.0); Mean Corpuscular Volume 98.9 fL (80-94); Platelet Count 240 K/mm3 (150-450); RBC Distribution Width CV 12.8 % (11.6-14.6); Red Blood Count 3.71 M/mm3 (4.6-6.2); White Blood Count 7.9 K/mm3 (4.4-11.0)
[2024-02-23 15:52] LABS: ALB/GLOB Ratio 1.3 RATIO (0.9-2.4); AST(SGOT) 17 U/L (15-37); Alanine Aminotransfer ALT/SGPT 28 U/L (16-61); Albumin, Serum 4.2 g/dL (3.2-5.0); Alkaline Phosphatase 94 U/L (45-117); Anion Gap 7 (5-15); BUN 12 mg/dL (7-18); BUN/Creat Ratio 11.7 RATIO (10-20); Calcium,Total 9.6 mg/dL (8.5-10.1); Chloride 101 mmol/L (98-107); Creatinine, Serum 1.03 mg/dL (0.70-1.30); EST Glomerular Filtration Rate 76 mL/min (>60); Est Glom Filt Rate - Afr Amer 91 mL/min (>60); Ferritin 20 ng/mL (26-388); Globulin 3.3 g/dL (2.2-4.2); Glucose 169 mg/dL (74-106); Iron 54 ug/dL (65-175); Potassium 3.9 mmol/L (3.5-5.1); Protein, Total 7.5 g/dL (6.4-8.2); Sodium Level 134 mmol/L (136-145)
== END | disposition home or self-care (01) ==
LOC: MFPLAB 12:32
PROVIDERS: PCP Family Medicine; Visit Provider Family Medicine
DX: D64.9 Anemia, unspecified (principal); E11.65 Type 2 diabetes mellitus with hyperglycemia
CPT/HCPCS: 36415; 80053; 82728; 83540; 85027

== ENCOUNTER → 2024-03-09 | Outpatient (CLI) | payer MEDICARE, SELFPAY ==
[2018-05-01 14:21] VITALS: BMI 36.8
--- NOTE | 2024-03-09 12:11 | RAD_ITS ---
INDICATION: COUGH EXAMINATION/TECHNIQUE: X-RAY - XR Chest 2 Views COMPARISON: FINDINGS: LINES/DEVICES: None. LUNGS: Mild effusion/atelectasis at the lung bases. No pneumothorax. MEDIASTINUM AND CARDIOVASCULAR STRUCTURES: Cardiac silhouette not enlarged. Central airways and mediastinal contour are unremarkable. BONES AND SOFT TISSUES: Degenerative vertebral changes. RAD/Chest PA and Lateral IMPRESSION: Mild effusion/atelectasis at the lung bases. Electronically Signed: Maximilian Winchester DO at 21:43 EDT ,
== END | disposition home or self-care (01) ==
PROVIDERS: PCP Family Medicine; Referring Provider Internal Medicine Pulmonary Disease; Visit Provider Internal Medicine Pulmonary Disease
DX: R05.9 Cough, unspecified (principal)
CPT/HCPCS: 71046; 87070; 87077; 87186; 87205

== ENCOUNTER 2024-03-19 22:50 | Inpatient (IN) | payer OTHER, SELFPAY ==
[2018-05-01 14:21] VITALS: BMI 36.8
[2024-03-19 23:01] VITALS: BP 178/75; PULSE 117; RESP 22; TEMP 37.9; O2SAT 95; BMI 35.0
--- NOTE | 2024-03-19 23:01 | CT_ITS ---
INDICATION: dyspnea, abdominal pain EXAMINATION: CTA Chest and CTA Abdomen and Pelvis W/ Contrast Injection (and W/O Contrast Images if performed) TECHNIQUE: CTA of the chest, abdomen, and pelvis is obtained with sagittal and coronal reconstructed MIP views. Three-dimensional surface rendered sequence of the thoracic and abdominal aorta was obtained. The protocol utilizes one or more of the following dose reduction techniques: automated exposure control, adjustment of mA and/or kV according to patient size,and/or use of iterative reconstruction technique. IV Contrast: IV 100mL Isovue-370 . Oral contrast: None. RADIATION DOSAGE (If Supplied By Facility): CTDIvol = ( 24.48 ) mGy, DLP = ( 1470.81 ) mGycm COMPARISON: CT chest 11/04/2023; CT abdomen and pelvis 07/08/2023. FINDINGS: ---CTA CHEST: LUNGS: Emphysematous changes. Focal opacity consolidation left upper lobe lingula approximately 4.5 x 4 cm abutting the fissure, not present on the prior. Cannot exclude underlying mass in this area. PLEURA: No pleural effusion. No pneumothorax. PULMONARY VESSELS: Suboptimal due to respiratory motion. No definite pulmonary emboli identified. MEDIASTINUM: Unremarkable. HEART: Not enlarged. Small pericardial effusion. Left atrial appendage occlusion device noted. CORONARY ARTERIES: Coronary artery calcifications are seen. AORTA/GREAT VESSELS: Thoracic aorta is normal caliber. No aneurysm or dissection. BONES/SOFT TISSUES: No acute findings. OTHER: None. ---CTA ABDOMEN AND PELVIS: AORTA: Normal caliber. No dissection. Arterial calcifications. CELIAC ARTERY: Patent. SMA: Patent. Bulky calcifications at the origin. RENAL ARTERIES: Patent. Calcifications at the origin greater on the left. NOEMI: Patent. ILIAC ARTERIES: Patent. RETROPERITONEUM: Unremarkable. LIVER: A few small cysts. GALLBLADDER/BILE DUCTS: Unremarkable. PANCREAS: Unremarkable. SPLEEN: Unremarkable. ADRENAL GLANDS: Unremarkable. KIDNEYS/URETERS: Unremarkable. BOWEL/MESENTERY: Scattered diverticula throughout the colon. No bowel obstruction. APPENDIX: Identified and normal. PERITONEUM: No free air. No free fluid. REPRODUCTIVE ORGANS: Unremarkable. BLADDER: Unremarkable. BONES/SOFT TISSUES: No acute abnormality. Surgical hardware in the right hip. Degenerative changes lumbar spine and scoliosis. OTHER: Small bilateral inguinal hernias containing only fat, no bowel. CT/CTA Chst, Abd, Pel W and/or WO IMPRESSION: No aortic aneurysm or dissection. Left upper lobe focal consolidation possible pneumonia. CT imaging follow-up recommended in 6-8 weeks to confirm complete resolution and exclude mass. No definite evidence of pulmonary emboli. Emphysematous changes. The presence of pulmonary emphysema on CT scan is an independent risk factor for lung cancer. Consider low dose lung cancer screening in the future. This study serves as a baseline. No acute intra-abdominal findings. Colonic diverticulosis without evidence of acute diverticulitis. Electronically Signed: Theodora العراقي MD at 0:36 EDT ,
--- NOTE | 2024-03-19 23:01 | EKG12_ITS ---
Test Reason : SOB Blood Pressure : / mmHG Vent. Rate : 104 BPM Atrial Rate : 104 BPM P-R Int : 150 ms QRS Dur : 082 ms QT Int : 322 ms P-R-T Axes : 053 056 142 degrees QTc Int : [address] & T wave abnormality, consider lateral ischemia Abnormal ECG Confirmed by JAYY SIMMS, ALONZO ([id number]), video tape editor MITCHELL BANSAL ([id number]) on 03/22/2024 6:50:00 AM Referred By: Confirmed By:ALONZO HOPE MD
--- NOTE | 2024-03-19 23:02 | EDS_ITS ---
HPI History of Present Illness Chief Complaint: Shortness of Breath Detail of Chief Complaint: Shortness of breath and fever Informant: patient and spouse/S.O. Narrative Narrative: Patient presents to the emergency department with complaint of shortness of breath and fever. The fever started this evening. 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 Patient has history of dementia therefore a lot of the history comes from the . Patient also is been complaining of some lower back pain. Increased confusion per . He has had history of UTIs in the past and usually gets very confused with those. Patient has history of coronary artery disease and history of A-fib but not on anticoagulation as he had a Watchman procedure. [facility] Medical History Transaminitis COPD with acute exacerbation Pneumonia Acute and chronic respiratory failure with hypoxia Diabetes GERD (gastroesophageal reflux disease) GI bleed Former smoker On home oxygen therapy Sleep apnea BiPAP (biphasic positive airway pressure) dependence Atrial fibrillation COPD exacerbation History of GI bleed Acute on chronic anemia Encounter for screening for COVID-19 History of short term memory loss Anemia COVID Suspected COVID-19 virus infection Acute and chronic respiratory failure with hypoxia Paroxysmal atrial fibrillation Atrial fibrillation and flutter Presence of stent in coronary artery (~05/01/18) Hydrocele, bilateral Dyspnea Pulmonary HTN CAD (coronary artery disease) Hypokalemia Lung nodule, multiple Alcoholism ELISHA (obstructive sleep apnea) Atherosclerotic heart disease of [place] coronary artery without angina pectoris Hyperlipemia Type 2 diabetes mellitus Essential hypertension COPD (chronic obstructive pulmonary disease) Home Medications ?Medication ?Instructions ?Recorded ?Last Taken ?Type albuterol sulfate 90 mcg/actuation 2 puff inhalation Q4H PRN PRN 06/24/15 07/22/22 History aerosol inhaler Shortness Of Breath atorvastatin 40 mg tablet 40 mg PO QHS Cholesterol 06/24/15 07/21/22 History metformin 1,000 mg tablet 1,000 mg PO BIDCM Diabetes 06/24/15 07/22/22 History valsartan 320 mg tablet 320 mg PO DAILY BP 06/24/15 07/22/22 History omega-3 fatty acids 1,000 mg 1,000 mg PO BID Heart health 04/14/18 07/22/22 History capsule (Fish Oil Concentrate) roflumilast 500 mcg tablet 500 mcg PO QPM COPD 04/14/18 07/21/22 History (Daliresp) tamsulosin 0.4 mg capsule 0.4 mg PO DAILY Prostate 04/14/18 07/21/22 History albuterol sulfate 2.5 mg/3 mL 2.5 mg inhalation 4X/DAY PRN Sob 10/15/18 07/22/22 History (0.083 %) solution for nebulization &/Or Wheezing torsemide 10 mg tablet 5 mg PO DAILY diuretic 10/15/18 07/22/22 History magnesium oxide 400 mg PO QHS supplement 10/25/20 07/21/22 History sertraline 50 mg tablet 50 mg PO DAILY mental health 08/01/21 07/22/22 History ascorbic acid (vitamin C) 500 mg 500 mg PO BID vitamin #60 tabs 11/27/21 07/22/22 Rx tablet clotrimazole 1 % topical cream 1 applic topical BID PRN feet 11/27/21 Unknown History pantoprazole 40 mg tablet,delayed 40 mg PO DAILY reflux #30 tabs 11/27/21 07/22/22 Rx release (Protonix) nifedipine 90 mg tablet,extended 90 mg PO DAILY blood pressure 03/15/22 07/22/22 History release tramadol 50 mg tablet 50 mg PO BID Pain 03/15/22 07/22/22 History acetaminophen 650 mg 1,300 mg PO Q12H pain 05/08/22 07/21/22 History tablet,extended release gabapentin 300 mg capsule 300 mg PO TID pain 05/08/22 07/22/22 History dextromethorphan-guaifenesin 30 2 tab PO BID secretions 7 days #28 07/27/22 Unknown Rx mg-600 mg tablet extended tabs [id number] hr (Mucinex DM) donepezil 5 mg tablet 5 mg PO QHS dementia 11/27/22 Unknown History aspirin 81 mg tablet,delayed 81 mg PO DAILY heart health 05/29/23 Unknown History release (Adult Low Dose Aspirin) budesonide 160 mcg-glycopyr 9 2 inh inhalation BID breathing 05/29/23 Unknown History mcg-formot 4.8 mcg/actuation HFA inhaler (Breztri Aerosphere) mirtazapine 15 mg tablet 30 mg PO QHS SLEEP 05/29/23 Unknown History cholecalciferol (vitamin D3) 25 25 mcg PO DAILY vitamin 07/08/23 Unknown History mcg (1,000 unit) capsule (Vitamin D3) montelukast 10 mg tablet 10 mg PO QHS allergies 07/08/23 Unknown History amlodipine 5 mg tablet 5 mg PO DAILY blood pressure #90 07/21/23 Unknown Rx tabs ferrous gluconate 324 mg (37.5 mg 324 mg PO TID supplement 11/27/23 Unknown History iron) tablet memantine 5 mg tablet 10 mg PO QPM dementia 11/27/23 Unknown History metoprolol tartrate 25 mg tablet 12.5 mg PO BID 03/19/24 Unknown History Allergy/AdvReac Type Severity Reaction Status Date / Time doxycycline Allergy Severe Rash Verified 03/19/24 23:00 empagliflozin (From AdvReac Severe yeast Verified 03/19/24 23:00 Jardiance) infection lisinopril AdvReac Intermediate Cough Verified 03/19/24 23:00 Family History Father COPD (chronic obstructive pulmonary disease) Heart disease Mother CAD (coronary artery disease) Myocardial infarction CVA (cerebral vascular accident) Diabetes Brother CAD (coronary artery disease) Pacemaker Diabetes History of coronary artery bypass surgery Brother Brain aneurysm Surgical History History of coronary artery stent placement History of left heart catheterization (LHC) (~02/06/21) Presence of coronary angioplasty implant and graft (~05/01/18) History of cardiac catheterization History of hip replacement Social History household members: spouse Smoking Status: Former smoker how long ago did patient quit smokin years ago, smoked since 14 years old. alcohol intake: former details: Quit in 1980 substance use type: does not use caffeine: Yes Type: coffee Number of servings: 2 ROS ROS ED Review of Systems ROS Unobtainable: other Constitutional Constitutional ED: Reports lethargy; Denies chills, fever(s), sweats or weight loss Eyes Eyes: Denies blurry vision, change in vision or diplopia ENT ENT ED: Denies rhinorrhea or sore throat Cardiovascular Cardiovascular: Denies chest pain, orthopnea or racing heartbeat Respiratory/Chest Respiratory/Chest: Reports cough, dyspnea and dyspnea on exertion; Denies orthopnea or sputum Gastrointestinal Gastrointestinal: Reports abdominal pain; Denies diarrhea, nausea or vomiting Genitourinary Genitourinary ED: Denies dysuria, hematuria or urinary frequency Musculoskeletal Musculoskeletal: Reports back pain; Denies arthralgias, myalgias or neck pain Integumentary Denies abscess, Abrasions or rash Neurologic Neurologic: Denies headache(s) or weakness Psychiatric Psychiatric: Denies anxiety, depression or suicidal thoughts Endocrine Endocrinology: Denies polydipsia, polyphagia or polyuria Hematologic/Lymphatic Hematologic/Lymphatic: Denies easy bleeding, easy bruising or lymphadenopathy Allergic/Immunologic Allergic/Immunologic ED: Denies mouth swelling, tongue swelling or urticaria EXAM Physical Exam Const Vital Signs: 03/19/24 23:01 03/19/24 23:04 03/19/24 23:08 Temperature 100.2 F H 100.2 F H Temperature Source Oral Oral Pulse Rate 117 H 109 H Respiratory Rate 22 H 22 H Respiratory Effort Short of Breath Labored Respiratory Pattern Tachypnea Blood Pressure 178/75 H 178/75 H Blood Pressure Mean 109 109 Pulse Ox 95 92 Oxygen Delivery Method Room Air Room Air Oxygen Flow Rate (L/min) 03/19/24 23:38 03/20/24 00:00 03/20/24 00:04 Temperature 99.3 F H Temperature Source Oral Pulse Rate 108 H 112 H 118 H Respiratory Rate 21 H 23 H 24 H Respiratory Effort Respiratory Pattern Blood Pressure 163/69 H 163/69 H Blood Pressure Mean 100 100 Pulse Ox 94 95 Oxygen Delivery Method Nasal Cannula Nasal Cannula Oxygen Flow Rate (L/min) 2 2 Positive well nourished and well developed General Appearance ED: well developed and NAD HEENT Reports TM's clear and moist mucous membranes normocephalic and atraumatic; Negative for trauma or tenderness Tympanic Membrane ED: Yes TM's clear Eyes PERRL and EOMs intact bilaterally General Eye ED: Negative for pale conjunctiva or scleral icterus Neck no lymphadenopathy, supple and no JVD General: Negative for tenderness Chest Wall inspection of chest normal and palpation of chest normal Chest: Negative for tenderness Resp No normal respiratory effort and clear to auscultation bilaterally Resp Narrative: Mild tachypnea. Mild conversational dyspnea. No accessory muscle use or retractions Effort and Inspection: Negative for respiratory distress or pain with movement Auscultation: wheezes; Negative for rhonchi or diminished lung sounds Cardio regular rate, regular rhythm, S1 normal heart sound, S2 normal heart sound and no murmurs Peripheral Pulses: pulses 2+ throughout GI normal to inspection, nondistended, normoactive bowel sounds, soft to palpation, non-distended and no masses GI Narrative: Mild diffuse tenderness especially to the left lower quadrant. There is a mild guarding. There is no rebound, rigidity, or peritoneal signs. Back/Spine no CVA tenderness and no thoracic nor lumbar tenderness Extremity normal to inspection General Extremety ED: Negative for edema General Extremity: Negative for edema Neuro oriented x3, CN's II-XII intact bilaterally, no sensory deficits noted and gait normal Sensorium / Orientation: awake, alert, oriented to person, oriented to place and oriented to time Motor Exam: strength 5/5 throughout and strength abnormal Psych mental status grossly normal Skin no rashes or lesions noted and no wounds MDM MDM MDM Narrative Medical decision making narrative: Patient presents the emergency department with cough and trouble breathing. Currently on Bactrim for positive sputum culture with staph. Also has history of dementia and is a poor historian but the gives a lot of the history. In the differential would be pneumonia versus UTI versus other infectious process. Given dyspnea and tachycardia also suspect possibly PE. IV line established. Blood cultures ordered. CBC with differential obtained for white count 13.6 with hemoglobin 11.5 and platelet count of 303. Chemistries unremarkable. Glucose was 278. Lactate was elevated 3.9. Urinalysis was normal. CTA of chest abdomen pelvis shows likely left sided infiltrate/pneumonia. Patient was started on Zosyn and vancomycin IV. Case will be discussed with hospitalist to evaluate patient for admission patient also received a DuoNeb aerosol in the department. Lab Data Attestation: I reviewed the patient's lab results. Labs: Laboratory Results - last 24 hr 03/19/24 03/20/24 23:05 00:30 WBC 13.6 H RBC 3.55 L Hgb 11.5 L Hct 34.4 L MCV 96.9 H MCH 32.4 H MCHC 33.4 RDW Std Deviation 45.1 H RDW Coeff of Anthony 12.7 Plt Count 303 MPV 8.9 Immature Gran % (Auto) 0.700 Neut % (Auto) 95.4 H Lymph % (Auto) 1.0 L [place] % (Auto) 2.4 Eos % (Auto) 0.3 Baso % (Auto) 0.2 Absolute Neuts (auto) 13.0 H Absolute Lymphs (auto) 0.13 L Nucleated RBC % 0 Sodium 132 L Potassium 3.9 Chloride 98 Carbon Dioxide 23.0 Anion Gap 11 BUN 13 Creatinine 1.28 Estim Creat Clear Calc 61.15 Est GFR (MDRD) Af Amer 71 Est GFR (MDRD) Non-Af 59 L BUN/Creatinine Ratio 10.2 Glucose 278 H Lactic Acid 3.9 H* Calcium 9.3 Total Bilirubin 0.60 AST 19 ALT 31 Alkaline Phosphatase 102 Troponin I High Sens 12 Total Protein 7.2 Albumin 3.8 Globulin 3.4 Albumin/Globulin Ratio 1.1 Urine Color Yellow Urine Clarity Clear Urine pH 6.0 Ur Specific [place] 1.010 Urine Protein 30 H Urine Glucose (UA) 250 H Urine Ketones 5 H Urine Occult Blood Negative Urine Nitrite Negative Urine Bilirubin Negative Urine Urobilinogen Normal Ur Leukocyte Esterase 25 H Urine RBC 0 SEEN Urine WBC 0 SEEN Ur Squamous Epith Cells 0 SEEN Urine Bacteria 0 SEEN Urine Mucus 0 SEEN Radiography Diagnostic Testing: Clinical Impression(s) from Imaging Studies Chest/Abdomen/Pelvis CTA 03/19/24 23:01 IMPRESSION: No aortic aneurysm or dissection. Left upper lobe focal consolidation possible pneumonia. CT imaging follow-up recommended in 6-8 weeks to confirm complete resolution and exclude mass. No definite evidence of pulmonary emboli. Emphysematous changes. The presence of pulmonary emphysema on CT scan is an independent risk factor for lung cancer. Consider low dose lung cancer screening in the future. This study serves as a baseline. No acute intra-abdominal findings. Colonic diverticulosis without evidence of acute diverticulitis. Electronically Signed: Theodora العراقي MD at 0:36 EDT , EKG Initial EKG: Attestation: I personally reviewed and interpreted this EKG as follows: Comments: Sinus rhythm with ventricular rate of [address] changes Prior EKG tracings: available for review Prior: Changed Discharge Plan Dx/Rx/DC Orders Clinical Impression: Pneumonia, Delirium, Tachypnea, Acidosis, lactic Disposition Disposition: Acute Care Hospital [facility]
[2024-03-19 23:04] VITALS: BP 178/75; PULSE 109; RESP 22; TEMP 37.9; O2SAT 92
[2024-03-19 23:24] LABS: Absolute Lymphocyte Count 0.13 X10^3/uL (0.83-4.51); Basophil# 0.03 X10^3/uL; Basophil% 0.2 % (0-1); Eosinophil# 0.04 X10^3/uL; Eosinophils% 0.3 % (0-5); Hematocrit 34.4 % (40-54); Hemoglobin 11.5 g/dL (13.0-16.5); Lymphocyte # 0.13 X10^3/ul (0.83-4.51); Mean Corp Hgb Conc 33.4 g/dL (32-36); Mean Corpuscular Hgb 32.4 pg (27.0-32.0); Mean Corpuscular Volume 96.9 fL (80-94); Mean Platelet Vol. 8.9 fl (6.2-12.0); Monocyte# 0.32 X10^3/uL; Monocyte% 2.4 % (0-10); NRBC Flagged by Analyzer 0 % (0-5); Neutrophil # 12.95 X10^3/uL (2.7-7.7); Neutrophil % 95.4 % (47-70); POSITIVE DIFFERENTIAL YES; Platelet Count 303 K/mm3 (150-450); RBC Distribution Width CV 12.7 % (11.6-14.6); RBC Distribution Width SD 45.1 fl (35.1-43.9); Red Blood Count 3.55 M/mm3 (4.6-6.2); White Blood Count 13.6 K/mm3 (4.4-11.0)
[2024-03-19] MEDS: 0.9% Normal Saline (1000mL) 1,000 ML 150 ML IV (23:29)
[2024-03-19 23:38] VITALS: PULSE 108; RESP 21
[2024-03-19] MEDS: Ipratropium/Albuterol Sulfate 3 ML AMPUL.NEB INHALATION (23:38)
[2024-03-19 23:45] LABS: ALB/GLOB Ratio 1.1 RATIO (0.9-2.4); AST(SGOT) 19 U/L (15-37); Alanine Aminotransfer ALT/SGPT 31 U/L (16-61); Albumin, Serum 3.8 g/dL (3.2-5.0); Alkaline Phosphatase 102 U/L (45-117); Anion Gap 11 (5-15); BUN 13 mg/dL (7-18); BUN/Creat Ratio 10.2 RATIO (10-20); Calcium,Total 9.3 mg/dL (8.5-10.1); Chloride 98 mmol/L (98-107); Creatinine, Serum 1.28 mg/dL (0.70-1.30); EST Glomerular Filtration Rate 59 mL/min (>60); Est Glom Filt Rate - Afr Amer 71 mL/min (>60); Estimated Creatinine Clearance 61.15 ml/min; Globulin 3.4 g/dL (2.2-4.2); Glucose 278 mg/dL (74-106); Potassium 3.9 mmol/L (3.5-5.1); Protein, Total 7.2 g/dL (6.4-8.2); Sodium Level 132 mmol/L (136-145); Troponin-I HS 12 pg/mL (3.0-78.0)
[2024-03-20] VITALS (16 sets, daily range): BP systolic 132–169; BP diastolic 52–97; PULSE 75–118; RESP 12–24; TEMP 36.8–39.5; O2SAT 18–97; BMI 35.2
[2024-03-20 00:08] LABS: Lactic Acid 3.9 mmol/L (0.4-1.9)
[2024-03-20 00:37] LABS: Bacteria 0 SEEN /hpf (None Seen); Mucous, Urine 0 SEEN /hpf (<or=2+); Red Blood Cells-Urine 0 SEEN /hpf (0-5); Squamous Epithelial Cells - UA 0 SEEN /hpf (0-5); White Blood Cells 0 SEEN /hpf (0-5)
[2024-03-20 00:41] LABS: Color, Urine Yellow (Yellow); Glucose, Dipstick 250 mg/dl (Normal); Ketone-Dipstick 5 mg/dl (Negative); Leukocyte Esterase-Dipstick 25 /ul (Negative); Nitrite-Dipstick Negative (Negative); Occult Blood-Urine Negative /ul (Negative); Protein-Dipstick 30 mg/dl (Negative); Urine Bilirubin Dipstick Negative (Negative); Urine Clarity Clear (Clear); Urine Urobilinogen Normal (Normal)
[2024-03-20] MEDS: Piperacil/Tazobactam 4.5 GM in 0.9% Normal Saline (100mL MB+) 100 ML IV (00:49)
[2024-03-20] MEDS: Vancomycin HCl 1,500 MG in 0.9% Normal Saline (500mL Bag) 500 ML 250 MG IV (01:19)
--- NOTE | 2024-03-20 01:44 | PCM.HP.STD ---
HPI - General General Date of Admission: 03/20/24 Date of Service: 03/20/24 Chief Complaint: Dyspnea, worsening. HPI Narrative The patient is a 74 y/o M w/ PMHx: Psoriasis, CKD stage II per GFR trending, COPD w/ Chronic Hypoxic Respiratory Failure 2-3L NC, Former tobacco use, GERD, HTN, HLD, Diabetes mellitus type II, ELISHA on BIPAP, GERD, Hx GI bleed, Former EtOH abuse, CAD s/p PCI, PAF s/p watchman procedure, Dementia unclear type with unclear behavioral disturbance history who presents to the [facility] ED on 03/19/24 with history of progressively worsening dyspnea with fever starting on evening prior to presentation with recent serial issues with frequent sputum culture growth most recently noted per his um rn staff currently on his third round of antibiotic on Bactrim (03/09/2024 sputum culture with 1+ Staph aureus sensitive to doxycycline, gentamicin, linezolid, moxifloxacin, oxacillin, tetracycline, Bactrim and vancomycin) with increased fatigue, malaise, lumbar back discomfort as well as increased confusion above his baseline prompting to bring him in for evaluation. She does report that with urinary tract infections which she has had previously he gets very confused. Workup in the ED included T 100.2, heart rate 109, BP 178/75, respiratory rate 22, 92% on room air, CBC with WC 13.6, hemoglobin 1.5, MCV 96.9, platelet 303 with left shift and lymphopenia, CMP with sodium 132, GFR 59, glucose 278, lactic acid 3.9, hepatic profile otherwise unremarkable, troponin 12, SARS COVID/influenza/RSV negative, blood culture x 2 pending per ED, CTA chest/abdomen/pelvis with no aortic aneurysm or dissection, left upper lobe focal consolidation possibly pneumonia, emphysematous changes, no evidence of any pulmonary emboli, no intra-abdominal findings, colonic diverticulosis without any evidence of acute diverticulitis, EKG with ST with nonspecific ST-T changes without acute evidence of ischemia. In the ED patient ministered maintenance IV fluids, DuoNeb therapy, IV vancomycin and IV Zosyn. [facility] Medical History Transaminitis COPD with acute exacerbation Pneumonia Acute and chronic respiratory failure with hypoxia Diabetes GERD (gastroesophageal reflux disease) GI bleed Former smoker On home oxygen therapy Sleep apnea BiPAP (biphasic positive airway pressure) dependence Atrial fibrillation COPD exacerbation History of GI bleed Acute on chronic anemia Encounter for screening for COVID-19 History of short term memory loss Anemia COVID Suspected COVID-19 virus infection Acute and chronic respiratory failure with hypoxia Paroxysmal atrial fibrillation Atrial fibrillation and flutter Presence of stent in coronary artery (~05/01/18) Hydrocele, bilateral Dyspnea Pulmonary HTN CAD (coronary artery disease) Hypokalemia Lung nodule, multiple Alcoholism ELISHA (obstructive sleep apnea) Atherosclerotic heart disease of [place] coronary artery without angina pectoris Hyperlipemia Type 2 diabetes mellitus Essential hypertension COPD (chronic obstructive pulmonary disease) Home Medications ?Medication ?Instructions ?Recorded ?Last Taken ?Type albuterol sulfate 90 mcg/actuation 2 puff inhalation Q4H PRN PRN 06/24/15 07/22/22 History aerosol inhaler Shortness Of Breath atorvastatin 40 mg tablet 40 mg PO QHS Cholesterol 06/24/15 07/21/22 History metformin 1,000 mg tablet 1,000 mg PO BIDCM Diabetes 06/24/15 07/22/22 History valsartan 320 mg tablet 320 mg PO DAILY BP 06/24/15 07/22/22 History omega-3 fatty acids 1,000 mg 1,000 mg PO BID Heart health 04/14/18 07/22/22 History capsule (Fish Oil Concentrate) roflumilast 500 mcg tablet 500 mcg PO QPM COPD 04/14/18 07/21/22 History (Daliresp) tamsulosin 0.4 mg capsule 0.4 mg PO DAILY Prostate 04/14/18 07/21/22 History albuterol sulfate 2.5 mg/3 mL 2.5 mg inhalation 4X/DAY PRN Sob 10/15/18 07/22/22 History (0.083 %) solution for nebulization &/Or Wheezing torsemide 10 mg tablet 5 mg PO DAILY diuretic 10/15/18 07/22/22 History magnesium oxide 400 mg PO QHS supplement 10/25/20 07/21/22 History sertraline 50 mg tablet 50 mg PO DAILY mental health 08/01/21 07/22/22 History ascorbic acid (vitamin C) 500 mg 500 mg PO BID vitamin #60 tabs 11/27/21 07/22/22 Rx tablet clotrimazole 1 % topical cream 1 applic topical BID PRN feet 11/27/21 Unknown History pantoprazole 40 mg tablet,delayed 40 mg PO DAILY reflux #30 tabs 11/27/21 07/22/22 Rx release (Protonix) nifedipine 90 mg tablet,extended 90 mg PO DAILY blood pressure 03/15/22 07/22/22 History release tramadol 50 mg tablet 50 mg PO BID Pain 03/15/22 07/22/22 History acetaminophen 650 mg 1,300 mg PO Q12H pain 05/08/22 07/21/22 History tablet,extended release gabapentin 300 mg capsule 300 mg PO TID pain 05/08/22 07/22/22 History dextromethorphan-guaifenesin 30 2 tab PO BID secretions 7 days #28 07/27/22 Unknown Rx mg-600 mg tablet extended tabs [id number] hr (Mucinex DM) donepezil 5 mg tablet 5 mg PO QHS dementia 11/27/22 Unknown History aspirin 81 mg tablet,delayed 81 mg PO DAILY heart health 05/29/23 Unknown History release (Adult Low Dose Aspirin) budesonide 160 mcg-glycopyr 9 2 inh inhalation BID breathing 05/29/23 Unknown History mcg-formot 4.8 mcg/actuation HFA inhaler (Breztri Aerosphere) mirtazapine 15 mg tablet 30 mg PO QHS SLEEP 05/29/23 Unknown History cholecalciferol (vitamin D3) 25 25 mcg PO DAILY vitamin 07/08/23 Unknown History mcg (1,000 unit) capsule (Vitamin D3) montelukast 10 mg tablet 10 mg PO QHS allergies 07/08/23 Unknown History amlodipine 5 mg tablet 5 mg PO DAILY blood pressure #90 07/21/23 Unknown Rx tabs ferrous gluconate 324 mg (37.5 mg 324 mg PO TID supplement 11/27/23 Unknown History iron) tablet memantine 5 mg tablet 10 mg PO QPM dementia 11/27/23 Unknown History metoprolol tartrate 25 mg tablet 12.5 mg PO BID 03/19/24 Unknown History Allergy/AdvReac Type Severity Reaction Status Date / Time doxycycline Allergy Severe Rash Verified 03/19/24 23:00 empagliflozin (From AdvReac Severe yeast Verified 03/19/24 23:00 Jardiance) infection lisinopril AdvReac Intermediate Cough Verified 03/19/24 23:00 Family History Father COPD (chronic obstructive pulmonary disease) Heart disease Mother CAD (coronary artery disease) Myocardial infarction CVA (cerebral vascular accident) Diabetes Brother CAD (coronary artery disease) Pacemaker Diabetes History of coronary artery bypass surgery Brother Brain aneurysm Surgical History History of coronary artery stent placement History of left heart catheterization (LHC) (~02/06/21) Presence of coronary angioplasty implant and graft (~05/01/18) History of cardiac catheterization History of hip replacement Social History household members: spouse Smoking Status: Former smoker how long ago did patient quit smokin years ago, smoked since 14 years old. alcohol intake: former details: Quit in 1980 substance use type: does not use caffeine: Yes Type: coffee Number of servings: 2 ROS ROS Narrative Admission Review of Systems: CONSTITUTIONAL: No weight loss, + fever, chills, weakness or fatigue. HEENT: Eyes: No visual loss, blurred vision, double vision or yellow sclerae. Ears, Nose, Throat: No hearing loss, sneezing, congestion, runny nose or sore throat. SKIN: No rash or itching, lesions, wounds. CARDIOVASCULAR: No chest pain, chest pressure or chest discomfort, palpitations, edema, orthopnea, syncopal events. RESPIRATORY: + Shortness of breath, cough with productive sputum, occasional wheezing. No hemoptysis. GASTROINTESTINAL: No anorexia, nausea, vomiting or diarrhea, abdominal pain, melena, BRBPR. GENITOURINARY: No dysuria, frequency, urgency or retention. NEUROLOGICAL: + Chronic memory impairment with dementia. No headache, dizziness, syncope, paralysis, ataxia, numbness or tingling in the extremities, focal weakness, change in bowel or bladder control, seizure. MUSCULOSKELETAL: + muscle, back pain, joint pain or stiffness. HEMATOLOGIC: + Chronic anemia. No bleeding or bruising. LYMPHATICS: No enlarged nodes. No history of splenectomy. PSYCHIATRIC: No history of depression or anxiety. ENDOCRINOLOGIC: + Reports of sweating, cold or heat intolerance. No polyuria or polydipsia. ALLERGIES: + Allergic rhinitis. Vital Signs Vital Signs Vital Signs: 03/19/24 23:01 03/19/24 23:04 03/19/24 23:08 Temperature 100.2 F H 100.2 F H Temperature Source Oral Oral Pulse Rate 117 H 109 H Respiratory Rate 22 H 22 H Respiratory Effort Short of Breath Labored Respiratory Pattern Tachypnea Blood Pressure 178/75 H 178/75 H Blood Pressure Mean 109 109 Pulse Ox 95 92 Oxygen Delivery Method Room Air Room Air Oxygen Flow Rate (L/min) 03/19/24 23:38 03/20/24 00:00 03/20/24 00:04 Temperature 99.3 F H Temperature Source Oral Pulse Rate 108 H 112 H 118 H Respiratory Rate 21 H 23 H 24 H Respiratory Effort Respiratory Pattern Blood Pressure 163/69 H 163/69 H Blood Pressure Mean 100 100 Pulse Ox 94 95 Oxygen Delivery Method Nasal Cannula Nasal Cannula Oxygen Flow Rate (L/min) 2 2 03/20/24 01:00 03/20/24 01:00 03/20/24 01:38 Temperature 100.9 F H 100.9 F H Temperature Source Oral Pulse Rate 113 H 113 H 113 H Respiratory Rate 21 H 23 H 20 H Respiratory Effort Respiratory Pattern Blood Pressure 156/71 H 156/71 H 142/60 H Blood Pressure Mean 99 99 87 Pulse Ox 93 18 93 Oxygen Delivery Method Nasal Cannula Nasal Cannula Oxygen Flow Rate (L/min) 2 Weight Weight: 230 lb 9.656 oz Body Mass Index (BMI) 35.0 Physical Exam Narrative Physical Examination: General: Awake, alert, oriented x 3 including to self, place and recent events but does have underlying dementia, remains cooperative, increased respiratory rate, some accessory muscle usage, fatigued and ill appearing. Skin: Normal color, normal turgor, no icterus, no cyanosis except occasional staged ecchymoses, RLE reports with recent psoriatic flare, currently well-appearing/improved. HEENT: AT/NC, EOMI, PERRLA, moderately dry MM, no carotid bruits or JVD noted; however difficult examination as thick yepez present. Lungs: Significantly diminished, L > R, increased respiratory rate with some accessory muscle use use, no current wheezing, rales or rhonchi. Heart: Mildly tachycardic with regular rhythm; no gallop, rub audible. Abdomen: Soft, obese, NTTP, ND, distant mildly hyperactive BS, no obvious HSM; however habitus makes evaluation difficult. Extremities: No cyanosis, no clubbing, mild ankle nonpitting edema. Neurological: Patient awake, alert, oriented as noted, cognitive function intact with underlying baseline dementia per discussion with spouse which is currently stable and similar to his prior; pupils equally reactive to light and accommodation, cranial nerves grossly normal, moving all 4 extremities, no focal deficits, strength severely globally secondary to acute presentation. Psychiatric: Affect appears fatigued, flat, ill-appearing, no acute evidence of depressive or anxiety feelings but does have underlying history Results Lab / Micro Data 03/19/24 23:05 03/19/24 23:05 Labs: Laboratory Results - last 24 hr 03/19/24 23:05: WBC 13.6 H, RBC 3.55 L, Hgb 11.5 L, Hct 34.4 L, MCV 96.9 H, MCH 32.4 H, MCHC 33.4, RDW Std Deviation 45.1 H, RDW Coeff of Anthony 12.7, Plt Count 303, MPV 8.9, Immature Gran % (Auto) 0.700, Neut % (Auto) 95.4 H, Lymph % (Auto) 1.0 L, [place] % (Auto) 2.4, Eos % (Auto) 0.3, Baso % (Auto) 0.2, Absolute Neuts (auto) 13.0 H, Absolute Lymphs (auto) 0.13 L, Nucleated RBC % 0, Sodium 132 L, Potassium 3.9, Chloride 98, Carbon Dioxide 23.0, Anion Gap 11, BUN 13, Creatinine 1.28, Estim Creat Clear Calc 61.15, Est GFR (MDRD) Af Amer 71, Est GFR (MDRD) Non-Af 59 L, BUN/Creatinine Ratio 10.2, Glucose 278 H, Lactic Acid 3.9 H*, Calcium 9.3, Total Bilirubin 0.60, AST 19, ALT 31, Alkaline Phosphatase 102, Troponin I High Sens 12, Total Protein 7.2, Albumin 3.8, Globulin 3.4, Albumin/Globulin Ratio 1.1 03/20/24 00:30: Urine Color Yellow, Urine Clarity Clear, Urine pH 6.0, Ur Specific [place] 1.010, Urine Protein 30 H, Urine Glucose (UA) 250 H, Urine Ketones 5 H, Urine Occult Blood Negative, Urine Nitrite Negative, Urine Bilirubin Negative, Urine Urobilinogen Normal, Ur Leukocyte Esterase 25 H, Urine RBC 0 SEEN, Urine WBC 0 SEEN, Ur Squamous Epith Cells 0 SEEN, Urine Bacteria 0 SEEN, Urine Mucus 0 SEEN Micro: Microbiology 03/19/24 23:05 Mucosa - Nose SARS-CoV-2, Influenza & RSV (PCR) - Final Imaging Radiology Impression Chest/Abdomen/Pelvis CTA 03/19/24 23:01 IMPRESSION: No aortic aneurysm or dissection. Left upper lobe focal consolidation possible pneumonia. CT imaging follow-up recommended in 6-8 weeks to confirm complete resolution and exclude mass. No definite evidence of pulmonary emboli. Emphysematous changes. The presence of pulmonary emphysema on CT scan is an independent risk factor for lung cancer. Consider low dose lung cancer screening in the future. This study serves as a baseline. No acute intra-abdominal findings. Colonic diverticulosis without evidence of acute diverticulitis. Electronically Signed: Theodora العراقي MD at 0:36 EDT , Assessment & Plan Assessment/Plan (1) Pneumonia: PLAN: Plan The patient is a 74 y/o M w/ PMHx: CKD stage II per GFR trending, COPD w/ Chronic Hypoxic Respiratory Failure 2-3L NC, Former tobacco use, GERD, HTN, HLD, Diabetes mellitus type II, ELISHA on BIPAP, GERD, Hx GI bleed, Former EtOH abuse, CAD s/p PCI, PAF s/p watchman procedure, Dementia unclear type with unclear behavioral disturbance history who presents to the [facility] ED on 03/19/24 with history of progressively worsening dyspnea with fever starting on evening prior to presentation with recent serial issues with frequent sputum culture growth most recently noted per his um rn staff currently on his third round of antibiotic on Bactrim (03/09/2024 sputum culture with 1+ Staph aureus sensitive to doxycycline, gentamicin, linezolid, moxifloxacin, oxacillin, tetracycline, Bactrim and vancomycin) with increased fatigue, malaise, lumbar back discomfort as well as increased confusion above his baseline prompting to bring him in for evaluation. #1. Acute left upper lobe focal consolidation concerning for staphylococcal pneumonia given recent sputum culture however could also be additional organisms, possibly gram-negative/gram-positive organisms given serial antibiotic failure: Will admit to PCU, maintain on oxygen with wean as tolerated to home oxygen supplementation, continue ATC budesonide, PRN albuterol, maintained on IV Zosyn and vancomycin with MRSA screen requested, HOB, IS parameters w/ requested repeat sputum cultures, full respiratory viral panel and urine antigens. Bld cx x 2 obtained in the ED. PT/OT/case management consulted for discharge planning. #2. Chronic COPD with chronic hypoxic respiratory failure 2-3L NC with allergic rhinitis: Will maintain on home oxygen supplementation, hold home inhaler in the interim transition to ATC budesonide therapy, albuterol, HOB, IS parameters. Continue home Daliresp as well as montelukast regimen. #3. CAD: Status post PCI RCA 2017, most recent cardiology visit noted 11/27/23, continue aspirin, statin, valsartan, not on beta-jd therapy potentially secondary to underlying COPD. #4. PAF/flutter: Not on rate or rhythm agent per current list, clarified to be certain, not chronically anticoagulated as status post Watchman procedure. #5. Chronic anemia/iron deficiency anemia: Admission hemoglobin 11.5, MCV 96 point, baseline hemoglobin more recently 11 and 12, continue CBC trending, continue iron supplementation. #6. Dementia, unclear type with unclear behavioral disturbance history: Will continue patient home memantine and donepezil regimen, complicates presentation, maintain on fall and aspiration precautions, PT/OT/case management consulted for discharge planning. #7. Chronic Kidney Disease Stage II per GFR trending: Admission BUN/Cr 13/1.28, GFR 59 although primarily from review is consistent with stage II, baseline renal function 0.9-1.2, repeat BMP in AM. #8. 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 Hypertension: Continue home regimen including valsartan, torsemide, nifedipine, amlodipine, PRN hydralazine. #10. Hyperlipidemia: We will continue patient on statin therapy. #11. Anxiety and depression: We will continue patient home mirtazapine and sertraline regimen. #12. Former tobacco use: Encourage continued tobacco cessation. #13. Former alcohol abuse: Encouraged continued sobriety. #14. BPH: We will continue patient home Flomax regimen. #15. GERD with history of previous GI bleed: Will continue patient on PPI. #16. ELISHA: BiPAP nightly. #17. Psoriasis with recent right lower extremity flare: reports recent prescription from [place] which she has been applying, unsure of prescription, will call in a.m. with name in order to continue this regimen. #18. DVT prophylaxis: Lovenox. #19. CODE status: Patient HCPOA is his he notes and living will is currently in place. Discussed CODE status at length including difference between FULL code, DNR-CCA and DNR-CC status. Following discussions about the differences in these status with both the patient and his who is present, requested DNR-CCA, no intubation status. Advanced Care Planning Face to Face Time: 16 minutes. Charges/Coding Visit Charges Inpatient E&M: 60281 Init Hosp L3 Procedures Hospitalists Procedures: 44740 Advncd Care Plan 30 Min
[2024-03-20 03:42] LABS: Reflex Lactate? Y
[2024-03-20] MEDS: 0.9% Normal Saline (1000mL) 1,000 ML 100 ML IV (03:50)
[2024-03-20 04:42] LABS: Absolute Lymphocyte Count 0.14 X10^3/uL (0.83-4.51); Absolute Neutrophil Count 8.5 X10^3/uL (2.0-7.7); Basophil# 0.02 X10^3/uL; Basophil% 0.2 % (0-1); Eosinophil# 0.02 X10^3/uL; Eosinophils% 0.2 % (0-5); Hematocrit 29.2 % (40-54); Hemoglobin 9.6 g/dL (13.0-16.5); Lymphocyte # 0.14 X10^3/ul (0.83-4.51); Lymphocyte % 1.6 % (19-41); Mean Corp Hgb Conc 32.9 g/dL (32-36); Mean Corpuscular Hgb 32.1 pg (27.0-32.0); Mean Corpuscular Volume 97.7 fL (80-94); Monocyte% 2.2 % (0-10); NRBC Flagged by Analyzer 0 % (0-5); Neutrophil # 8.51 X10^3/uL (2.7-7.7); POSITIVE DIFFERENTIAL YES; Platelet Count 239 K/mm3 (150-450); RBC Distribution Width CV 12.9 % (11.6-14.6); RBC Distribution Width SD 45.3 fl (35.1-43.9); Red Blood Count 2.99 M/mm3 (4.6-6.2)
[2024-03-20] MEDS: Acetaminophen 325 MG Tablet 650 MG PO ×3 (04:47→15:19)
--- NOTE | 2024-03-20 04:47 | PCM.RX.CS ---
Consult Antibiotic Management Pharmacy has been consulted to manage selected antibiotic: Vancomycin Type of Intervention Type of Consult: New start Microbiology Microbiology: Microbiology 03/19/24 23:05 Mucosa - Nose SARS-CoV-2, Influenza & RSV (PCR) - Final Dosing Weight Weight used for dosin.19 kg Estimated Creatinine Clearance Estimated Creatinine Clearance: 61.15 Goal Trough Goal Trough: 15-20 mcg/mL Pharmacy Plan for Drug Dosing Pharmacy Plan for Drug Dosing: Pharmacy Service will continue to monitor and adjust dosing as required. 1500MG GIVEN IN ER. 1250 Q12H TROUGH PRIOR TO 4TH DOSE Follow-Up Labs Follow-Up Labs: Trough: Vancomycin Date/Time Labs Ordered Labs to be done on [date and time ordered]: 03/21 @ 1300
[2024-03-20 04:49] LABS: Lactic Acid 2.8 mmol/L (0.4-1.9)
[2024-03-20] MEDS: Metoprolol Tartrate 25 MG Tablet 12.5 MG PO ×3 (04:51→22:36)
[2024-03-20 05:01] LABS: ALB/GLOB Ratio 1.3 RATIO (0.9-2.4); AST(SGOT) 28 U/L (15-37); Alanine Aminotransfer ALT/SGPT 32 U/L (16-61); Albumin, Serum 3.2 g/dL (3.2-5.0); Alkaline Phosphatase 99 U/L (45-117); Anion Gap 10 (5-15); BUN 12 mg/dL (7-18); BUN/Creat Ratio 10.8 RATIO (10-20); Calcium,Total 8.6 mg/dL (8.5-10.1); Chloride 100 mmol/L (98-107); Creatinine, Serum 1.11 mg/dL (0.70-1.30); EST Glomerular Filtration Rate 69 mL/min (>60); Est Glom Filt Rate - Afr Amer 84 mL/min (>60); Estimated Creatinine Clearance 68.53 ml/min; Globulin 2.5 g/dL (2.2-4.2); Glucose 279 mg/dL (74-106); Potassium 3.7 mmol/L (3.5-5.1); Protein, Total 5.7 g/dL (6.4-8.2); Sodium Level 133 mmol/L (136-145)
[2024-03-20] MEDS: Piperacil/Tazobactam 3.375 GM in 0.9% Normal Saline (50mL MB+) 50 ML IV ×3 (06:15→22:43)
[2024-03-20] MEDS: Gabapentin 300 MG Capsule PO ×3 (06:20→22:40)
[2024-03-20] MEDS: Ferrous Gluconate 324 MG Tablet PO ×3 (06:52→22:35)
[2024-03-20] MEDS: Insulin Lispro 100 UNIT/ML INSULN.PEN SC ×4 (06:54→22:45)
[2024-03-20 07:14] LABS: Bedside Glucose 199 mg/dL (74-106)
[2024-03-20 08:48] LABS: CPK Total, Creatine Kinase 60 U/L (39-308)
[2024-03-20] MEDS: Tamsulosin HCl 0.4 MG Capsule PO (09:15)
[2024-03-20] MEDS: Ascorbic Acid 500 MG Tablet PO ×2 (09:16→22:38)
[2024-03-20] MEDS: Sertraline 50 MG Tablet PO (09:16)
[2024-03-20] MEDS: Pantoprazole Sodium 40 MG Tablet PO (09:17)
[2024-03-20] MEDS: NIFEdipine 60 MG Tablet PO (09:17)
[2024-03-20] MEDS: Furosemide 20 MG Tablet 10 MG PO (09:20)
[2024-03-20] MEDS: Aspirin E.C. 81 MG Tablet PO (09:20)
[2024-03-20] MEDS: Enoxaparin 40 MG/0.4 ML Syringe SC (09:21)
[2024-03-20] MEDS: traMADol 50 MG Tablet PO ×2 (09:31→22:37)
--- NOTE | 2024-03-20 11:45 | CASEMGMT ---
TORRIE MILLIGAN Assessment: TORRIE MILLIGAN to room to meet with pt and for initial transition planning/care coordination assessment. TORRIE MILLIGAN introduced self and role at [facility]. Pt sleepy at this time and fell asleep on/off during assessment. Pt states pt does have dementia. All of the following information obtained from . Care providers, pharmacy, and demographics verified/updated. PCP:Dr Orr. Pt also goes to [facility] about every 3-4 months. Specialists: [facility]/cardio; Sibilia, pulm; Tia, ENT. Pt also sees podiatry and a cattle killer @ [place]. Preferred Pharmacy: Pt gets most of his chronic/maintenance medications from the [facility] or gets medications from [facility]. would like to get meds from [facility] retail pharmacy @ [place] Insurance: [employer] benefits, [employer] Prescription Benefit: yes LNOK: Aviva Levy, Living Arrangements: Pt lives with , 90-yr-old mother in law, and 19-yr-old grandson in a single story house with a ramp to enter. Pt reports she assists pt w/showering and bathing (he can dress himself on days he's feeling well, but other days she assists him with everything). Pt has been doing own personal care, but states she noticed he has a rash in his abhay-area, so she feels he may not be doing self-care very well and she plans to monitor more closely/assist as needed. She manages all of pt's medications and all home mgnt tasks. GS does assist at times and grand-dtr lives close and helps w/cleaning. has back-issues, so pt's personal care and home mgnt is becoming more difficult. Transportation: DME: Pt has a functioning glucometer with sufficient supplies, rollator, transport chair, built-in corner shower seat, hand held shower, [facility], adjustable bed, nebulizer, CPAP, and pulse ox at home. Pt has oxygen through the [facility] from [facility] with portable tanks that can bring in for pt to go home on. states pt currently uses the O2 @ 2-3 l/m continuously. Pt's concentrator only goes up to 5 l/m and is not sure how high the portable tank goes up to. HHC/SNF: No hx of SNF or HHC. Pt used to [facility], but he is no longer active w/that and she would like this to be started-up again for an aide for ADL's and would like this to be initiated while by @ [facility], if pt able to dc home. Discussed discharge planning. prefers for pt to dc home, if able, as long as she is able to manage/care for him. If able to dc home, she would like [facility] and declines wanting list of other HHC options, unless [facility] unable to accept pt. states, if pt too weak for her to care for pt @ home, then she would consider SNF. states she has contact info for [facility] and plans to f/u with them. states no further concerns/needs. CM/SW to follow. Advised to ask CM if any further question/concerns/needs arise. She voices understanding. Plan: Home w/HHC, if able and would [facility]. Plan: TBD by progress w/therapy. Home w/HHC vs SNF. PT/OT evals pending. Follow for possible increase in home needs @ discharge. Paola KEBEDE RN CM
[2024-03-20 12:45] LABS: Bedside Glucose 201 mg/dL (74-106)
--- NOTE | 2024-03-20 14:23 | PCM.PN.HOSP ---
Reason for Visit Reason for Visit: Diagnoses Pneumonia, unspecified organism (03/20/24) Objective Data Objective Data Vital Signs: Vital Signs Temp Pulse Resp BP Pulse Ox O2 Del Method O2 Flow Rate 102.6 F H 89 20 H 169/78 H 97 Nasal Cannula 2 03/20/24 09:10 03/20/24 09:19 03/20/24 09:10 03/20/24 09:10 03/20/24 09:10 03/20/24 09:10 03/20/24 09:10 Oxygen Flow Rate (L/min) 2 Oxygen Delivery Method Nasal Cannula Weight: 225 lb 4.8 oz Body Mass Index (BMI) 35.2 Intake & Output: Intake and Output for Last 24 Hours 03/18/24 03/19/24 03/20/24 23:59 23:59 23:59 Intake Total 1920 / 1920 Output Total 500 / 500 Balance 1420 / 1420 Lab / Micro Data 03/20/24 04:10 03/20/24 04:10 Labs: Laboratory Results - last 24 hr 03/19/24 23:05: WBC 13.6 H, RBC 3.55 L, Hgb 11.5 L, Hct 34.4 L, MCV 96.9 H, MCH 32.4 H, MCHC 33.4, RDW Std Deviation 45.1 H, RDW Coeff of Anthony 12.7, Plt Count 303, MPV 8.9, Immature Gran % (Auto) 0.700, Neut % (Auto) 95.4 H, Lymph % (Auto) 1.0 L, [place] % (Auto) 2.4, Eos % (Auto) 0.3, Baso % (Auto) 0.2, Absolute Neuts (auto) 13.0 H, Absolute Lymphs (auto) 0.13 L, Nucleated RBC % 0, Sodium 132 L, Potassium 3.9, Chloride 98, Carbon Dioxide 23.0, Anion Gap 11, BUN 13, Creatinine 1.28, Estim Creat Clear Calc 61.15, Est GFR (MDRD) Af Amer 71, Est GFR (MDRD) Non-Af 59 L, BUN/Creatinine Ratio 10.2, Glucose 278 H, Lactic Acid 3.9 H*, Calcium 9.3, Total Bilirubin 0.60, AST 19, ALT 31, Alkaline Phosphatase 102, Troponin I High Sens 12, Total Protein 7.2, Albumin 3.8, Globulin 3.4, Albumin/Globulin Ratio 1.1 03/20/24 00:30: Urine Color Yellow, Urine Clarity Clear, Urine pH 6.0, Ur Specific [place] 1.010, Urine Protein 30 H, Urine Glucose (UA) 250 H, Urine Ketones 5 H, Urine Occult Blood Negative, Urine Nitrite Negative, Urine Bilirubin Negative, Urine Urobilinogen Normal, Ur Leukocyte Esterase 25 H, Urine RBC 0 SEEN, Urine WBC 0 SEEN, Ur Squamous Epith Cells 0 SEEN, Urine Bacteria 0 SEEN, Urine Mucus 0 SEEN 03/20/24 04:10: WBC 9.0, RBC 2.99 L, Hgb 9.6 L, Hct 29.2 L, MCV 97.7 H, MCH 32.1 H, MCHC 32.9, RDW Std Deviation 45.3 H, RDW Coeff of Anthony 12.9, Plt Count 239, MPV 9.0, Immature Gran % (Auto) 0.800, Neut % (Auto) 95.0 H, Lymph % (Auto) 1.6 L, [place] % (Auto) 2.2, Eos % (Auto) 0.2, Baso % (Auto) 0.2, Absolute Neuts (auto) 8.5 H, Absolute Lymphs (auto) 0.14 L, Nucleated RBC % 0, Sodium 133 L, Potassium 3.7, Chloride 100, Carbon Dioxide 23.0, Anion Gap 10, BUN 12, Creatinine 1.11, Estim Creat Clear Calc 68.53, Est GFR (MDRD) Af Amer 84, Est GFR (MDRD) Non-Af 69, BUN/Creatinine Ratio 10.8, Glucose 279 H, Lactic Acid 2.8 H*, Calcium 8.6, Total Bilirubin 0.60, AST 28, ALT 32, Alkaline Phosphatase 99, Total Creatine Kinase 60, Total Protein 5.7 L, Albumin 3.2, Globulin 2.5, Albumin/Globulin Ratio 1.3 03/20/24 06:51: POC Glucose 199 H 03/20/24 12:03: POC Glucose 201 H Micro: Microbiology 03/20/24 03:54 Mucosa - Nose Respiratory Panel (PCR) - Final 03/20/24 03:52 Nasal Secretion MRSA (PCR) - Final 03/20/24 00:30 Urine, Clean Catch Legionella Antigen - Final 03/20/24 00:30 Urine, Clean Catch Streptococcus pneumoniae Antigen (M - Final 03/19/24 23:05 Mucosa - Nose SARS-CoV-2, Influenza & RSV (PCR) - Final Radiography Diagnostic Testing: Radiology Impression Chest/Abdomen/Pelvis CTA 03/19/24 23:01 IMPRESSION: No aortic aneurysm or dissection. Left upper lobe focal consolidation possible pneumonia. CT imaging follow-up recommended in 6-8 weeks to confirm complete resolution and exclude mass. No definite evidence of pulmonary emboli. Emphysematous changes. The presence of pulmonary emphysema on CT scan is an independent risk factor for lung cancer. Consider low dose lung cancer screening in the future. This study serves as a baseline. No acute intra-abdominal findings. Colonic diverticulosis without evidence of acute diverticulitis. Electronically Signed: Theodora العراقي MD at 0:36 EDT , Physical Exam Narrative Seen and examined. Patient is still short of breath. Had a high fever at home. History of COPD and follows Dr. Tavarez. Cough has gotten better. Physical exam General: Alert, Oriented x3, Cooperative. Looks lethargic and chronically sick. BMI 35.3 kg/m? HEENT: Hard of hearing. Atraumatic, PERRLA, EOMI, Normocephalic Oral: Oral mucosa dry. No Gingival or Mucosal Lesions/ Ulcerations Neck: Supple, No JVD, Negative Carotid Bruits Chest wall/Lungs: Air entry severely diminished. Bilateral lung bases coarse crepitation and wheezing. Dyspnea at rest Cardiovascular: Regular rate, Regular Rhythm, Normal S1, Normal S2, No M/G/R Abdomen: Bowel Sounds Present, Soft, Non Tender, Non-Distended : No dysuria. No renal angle tenderness. No suprapubic tenderness. Extremities:-2+ pitting bilateral edema, Capillary Refill Less than 3 Seconds Skin: No rashes, No breakdown Musculoskeletal: No Tenderness to Palpation of Joints or Extremities. ROM restricted Neurological: Cranial nerves II-XII grossly intact, DTR 2+/4. No acute focal neurological deficit. Psych/Mental Status: Flat affect Assessment & Plan Assessment/Plan (1) Pneumonia: PLAN: Plan The patient is a 74 y/o M was admitted with progressive worsening of dyspnea and fever with sputum culture growing 1+ Staph aureus and was just started on third round of antibiotic Bactrim on 03/19/2024 took only 2 doses with increased fatigue malaise. #1. Acute left upper lobe focal consolidation: Fever Tmax 102.6 Fahrenheit. Chest abdomen pelvis CT initially reviewed shows left upper lobe focal consolidation. Follow-up CT recommended in 6 to 8 weeks to confirm complete resolution and exclude mass. No evidence of pulmonary embolism. Diffuse emphysematous changes. Colonic diverticulosis without acute diverticulitis or intra-abdominal finding. Lactic acid elevated probably due to decreased perfusion. Does not look like an sepsis. Patient is sputum culture on 03/03 shows MSSA 1+. Patient is started on vancomycin and Zosyn for broad-spectrum coverage. Patient completed 2 rounds of antibiotics and had 1 day dose of Bactrim DS by Dr. Gianfranco Tavarez. #2. COPD with chronic hypoxic respiratory failure 2-3L NC with allergic rhinitis: Patient is being managed on scheduled bronchodilator, IV Solu-Medrol, Mucinex, incentive spirometry and Pep. On Daliresp continued from home medication. #3. CAD: Status post PCI RCA 2017, most recent cardiology visit noted 11/27/23, continue aspirin, statin, valsartan, not on beta-jd therapy potentially secondary to underlying COPD. #4. PAF/flutter: Not on anticoagulation due to status post Watchman procedure. Currently sinus tachycardia #5. Chronic anemia/iron deficiency anemia: Admission hemoglobin 11.5, MCV 96 11 and 12, most recent 9.6/29.2%. Platelet count normal. #6. Dementia, unclear type with unclear behavioral disturbance history: Continue memantine and donepezil regimen #7. Chronic Kidney Disease Stage II per GFR trending: Admission BUN/Cr 13/1.28, GFR 59 although primarily from review is consistent with stage II, baseline renal function 0.9-1.2, repeat BMP in AM. #8. 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 A1c ordered for tomorrow AM. Accu-Chek before meals and at bedtime with Humalog sliding scale coverage and hypoglycemia protocol. #9. Hypertension: Continue home regimen including valsartan, torsemide, nifedipine, amlodipine, PRN hydralazine. #10. Multiple other comorbidities include dyslipidemia, BPH, GERD, obstructive sleep apnea on BiPAP, psoriasis: Home medications reconciliation done Hyperlipidemia: continue patient on statin therapy. 13. DVT prophylaxis: Lovenox. CODE status: Patient TORSTEN is his he notes and living will is currently in place. Discussed CODE status at length including difference between FULL code, DNR-CCA and DNR-CC status. Following discussions about the differences in these status with both the patient and his who is present, requested DNR-CCA, no intubation status. Charges/Coding Visit Charges Inpatient E&M: 78474 Subs Hosp L2
[2024-03-20] MEDS: Vancomycin HCl 1,250 MG in 0.9% Normal Saline (250mL Bag) 250 ML 167 MG IV (15:00)
[2024-03-20] MEDS: Furosemide 40 MG/4 ML Vial IV (15:02)
[2024-03-20] MEDS: Albuterol 2.5 MG/3 ML VIAL.NEB. INHALATION ×2 (15:20→22:59)
[2024-03-20 17:59] LABS: Bedside Glucose 243 mg/dL (74-106)
[2024-03-20] MEDS: Budesonide Respules 0.5 MG/2 ML AMPUL.NEB. INHALATION (19:56)
--- NOTE | 2024-03-20 20:58 | CPS ---
Patient refused PAP therapy for night time use.
[2024-03-20] MEDS: Donepezil HCl 5 MG Tablet PO (22:34)
[2024-03-20] MEDS: Memantine Hydrochloride 10 MG Tablet PO (22:35)
[2024-03-20] MEDS: Atorvastatin Calcium 40 MG Tablet PO (22:36)
[2024-03-20] MEDS: Montelukast 10 MG Tablet PO (22:37)
[2024-03-20] MEDS: Magnesium Chloride 64 MG Delay Rel.Tablet 128 MG PO (22:37)
[2024-03-20] MEDS: Mirtazapine 30 MG Tablet PO (22:37)
[2024-03-20] MEDS: ROFLUMILAST 500 MCG TABLET PO (22:40)
[2024-03-20 23:10] LABS: Bedside Glucose 189 mg/dL (74-106)
[2024-03-21] VITALS (14 sets, daily range): BP systolic 122–165; BP diastolic 51–71; PULSE 64–99; RESP 16–20; TEMP 36.8–37; O2SAT 88–98; BMI 35.4
[2024-03-21] MEDS: Vancomycin HCl 1,250 MG in 0.9% Normal Saline (250mL Bag) 250 ML 167 MG IV (02:58)
[2024-03-21] MEDS: Piperacil/Tazobactam 3.375 GM in 0.9% Normal Saline (50mL MB+) 50 ML IV ×3 (05:58→21:09)
[2024-03-21] MEDS: Ferrous Gluconate 324 MG Tablet PO ×3 (06:00→21:00)
[2024-03-21] MEDS: Gabapentin 300 MG Capsule PO ×3 (06:00→21:06)
[2024-03-21] MEDS: Insulin Lispro 100 UNIT/ML INSULN.PEN SC ×4 (06:35→22:35)
[2024-03-21 06:36] LABS: Absolute Lymphocyte Count 0.34 X10^3/uL (0.83-4.51); Absolute Neutrophil Count 5.4 X10^3/uL (2.0-7.7); Basophil# 0.01 X10^3/uL; Basophil% 0.2 % (0-1); Eosinophils% 1.6 % (0-5); Hematocrit 28.5 % (40-54); Hemoglobin 9.3 g/dL (13.0-16.5); Lymphocyte # 0.34 X10^3/ul (0.83-4.51); Lymphocyte % 5.5 % (19-41); Mean Corp Hgb Conc 32.6 g/dL (32-36); Mean Corpuscular Hgb 32.1 pg (27.0-32.0); Mean Corpuscular Volume 98.3 fL (80-94); Mean Platelet Vol. 8.9 fl (6.2-12.0); Monocyte# 0.26 X10^3/uL; Monocyte% 4.2 % (0-10); NRBC Flagged by Analyzer 0 % (0-5); Neutrophil % 87.7 % (47-70); POSITIVE DIFFERENTIAL YES; Platelet Count 203 K/mm3 (150-450); RBC Distribution Width CV 13.2 % (11.6-14.6); White Blood Count 6.2 K/mm3 (4.4-11.0)
[2024-03-21 06:53] LABS: Bedside Glucose 178 mg/dL (74-106)
[2024-03-21 07:01] LABS: AST(SGOT) 87 U/L (15-37); Alanine Aminotransfer ALT/SGPT 128 U/L (16-61); Alkaline Phosphatase 135 U/L (45-117); Anion Gap 6 (5-15); BUN 11 mg/dL (7-18); BUN/Creat Ratio 10.2 RATIO (10-20); Calcium,Total 8.6 mg/dL (8.5-10.1); Chloride 101 mmol/L (98-107); Creatinine, Serum 1.08 mg/dL (0.70-1.30); EST Glomerular Filtration Rate 71 mL/min (>60); Est Glom Filt Rate - Afr Amer 86 mL/min (>60); Estimated Creatinine Clearance 70.54 ml/min; Globulin 3.1 g/dL (2.2-4.2); Glucose 200 mg/dL (74-106); Potassium 3.6 mmol/L (3.5-5.1); Protein, Total 6.1 g/dL (6.4-8.2); Sodium Level 131 mmol/L (136-145)
[2024-03-21] MEDS: Budesonide Respules 0.5 MG/2 ML AMPUL.NEB. INHALATION ×2 (07:27→19:53)
--- NOTE | 2024-03-21 08:55 | PN.HOSP_ITS ---
Reason for Visit Reason for Visit: Diagnoses Pneumonia, unspecified organism (03/20/24) Objective Data Objective Data Vital Signs: Vital Signs Temp Pulse Resp BP Pulse Ox O2 Del Method O2 Flow Rate 98.4 F 75 20 H 147/59 H 95 Nasal Cannula 4 03/21/24 04:20 03/21/24 04:20 03/21/24 04:20 03/21/24 04:20 03/21/24 04:20 03/21/24 04:20 03/21/24 04:20 Oxygen Flow Rate (L/min) 4 Oxygen Delivery Method Nasal Cannula Weight: 225 lb 15.581 oz Body Mass Index (BMI) 35.4 Intake & Output: Intake and Output for Last 24 Hours 03/19/24 03/20/24 03/21/24 23:59 23:59 23:59 Intake Total 3725 / 3725 825 / 825 Output Total 500 / 500 650 / 650 Balance 3225 / 3225 175 / 175 Lab / Micro Data 03/21/24 06:05 03/21/24 06:05 Labs: Laboratory Results - last 24 hr 03/20/24 12:03: POC Glucose 201 H 03/20/24 17:06: POC Glucose 243 H 03/20/24 22:41: POC Glucose 189 H 03/21/24 06:05: WBC 6.2, RBC 2.90 L, Hgb 9.3 L, Hct 28.5 L, MCV 98.3 H, MCH 32.1 H, MCHC 32.6, RDW Std Deviation 48.0 H, RDW Coeff of Anthony 13.2, Plt Count 203, MPV 8.9, Immature Gran % (Auto) 0.800, Neut % (Auto) 87.7 H, Lymph % (Auto) 5.5 L, [place] % (Auto) 4.2, Eos % (Auto) 1.6, Baso % (Auto) 0.2, Absolute Neuts (auto) 5.4, Absolute Lymphs (auto) 0.34 L, Nucleated RBC % 0, Sodium 131 L, Potassium 3.6, Chloride 101, Carbon Dioxide 24.0, Anion Gap 6, BUN 11, Creatinine 1.08, Estim Creat Clear Calc 70.54, Est GFR (MDRD) Af Amer 86, Est GFR (MDRD) Non-Af 71, BUN/Creatinine Ratio 10.2, Glucose 200 H, Calcium 8.6, Total Bilirubin 1.10 H, AST 87 H, ALT 128 H, Alkaline Phosphatase 135 H, Total Protein 6.1 L, Albumin 3.0 L, Globulin 3.1, Albumin/Globulin Ratio 1.0 03/21/24 06:33: POC Glucose 178 H Micro: Microbiology 03/20/24 04:50 Sputum, Expectorated/Coughed Gram Stain - Final 03/20/24 03:54 Mucosa - Nose Respiratory Panel (PCR) - Final 03/20/24 03:52 Nasal Secretion MRSA (PCR) - Final 03/20/24 00:30 Urine, Clean Catch Legionella Antigen - Final 03/20/24 00:30 Urine, Clean Catch Streptococcus pneumoniae Antigen (M - Final 03/19/24 23:05 Mucosa - Nose SARS-CoV-2, Influenza & RSV (PCR) - Final Physical Exam Narrative Seen and examined. Shortness of breath is much better. No fever since yesterday afternoon. History of COPD and follows Dr. Tavarez. Cough has gotten better. Physical exam General: Oriented x3, Cooperative. Alert and awake. Looks better than yesterday. BMI 35.3 kg/m? HEENT: Hard of hearing. Atraumatic, PERRLA, EOMI, Normocephalic Oral: No Gingival or Mucosal Lesions/ Ulcerations Neck: Supple, No JVD, Negative Carotid Bruits Chest wall/Lungs: Air entry severely diminished. Bilateral lung bases coarse crepitation and wheezing improved. On BiPAP at night. Cardiovascular: Regular rate, Regular Rhythm, Normal S1, Normal S2, No M/G/R Abdomen: Bowel Sounds Present, Soft, Non Tender, Non-Distended : No dysuria. No renal angle tenderness. No suprapubic tenderness. Extremities:-1+ pitting bilateral edema, Capillary Refill Less than 3 Seconds Skin: No rashes, No breakdown Musculoskeletal: No Tenderness to Palpation of Joints or Extremities. ROM restricted Neurological: Cranial nerves II-XII grossly intact, DTR 2+/4. No acute focal neurological deficit. Psych/Mental Status: Flat affect Assessment & Plan Assessment/Plan (1) Pneumonia: PLAN: Plan The patient is a 74 y/o M was admitted with progressive worsening of dyspnea and fever with sputum culture growing 1+ Staph aureus and was just started on third round of antibiotic Bactrim on 03/19/2024 took only 2 doses with increased fatigue malaise. #1. Acute left upper lobe focal consolidation consistent with pneumonia: Fever Tmax 102.6 Fahrenheit. Chest abdomen pelvis CT initially reviewed shows left upper lobe focal consolidation. Follow-up CT recommended in 6 to 8 weeks to confirm complete resolution and exclude mass. No evidence of pulmonary embolism. Diffuse emphysematous changes. Colonic diverticulosis without acute diverticulitis or intra-abdominal finding. Lactic acid elevated probably due to decreased perfusion. Does not look like an sepsis. Patient is sputum culture on 03/03 shows MSSA 1+. Patient is started on vancomycin and Zosyn for broad-spectrum coverage. Patient completed 2 rounds of antibiotics and had 1 day dose of Bactrim DS by Dr. Gianfranco Tavarez. 03/21: Last fever was 103.1 Fahrenheit, 101.2 F. No fever overnight. On 03/20 sputum culture Gram stain shows 4+ WBC, 1+ GPC, rare GNR. 1+ epithelial cells. MRSA nasal screen negative. Zosyn covers MSSA and therefore vancomycin discontinued. #2. COPD with chronic hypoxic respiratory failure 2-3L NC with allergic rhinitis: Patient is being managed on scheduled bronchodilator, IV Solu-Medrol, Mucinex, incentive spirometry and Pep. On Daliresp continued from home medication. 03/21: On BiPAP at night. Doing better. #3. CAD: Status post PCI RCA 2017, most recent cardiology visit noted 11/27/23, continue aspirin, statin, valsartan, not on beta-jd therapy potentially secondary to underlying COPD. #4. PAF/flutter: Not on anticoagulation due to status post Watchman procedure. Currently sinus tachycardia #5. Chronic anemia/iron deficiency anemia: Admission hemoglobin 11.5, MCV 96 11 and 12, most recent 9.6/29.2%. Platelet count normal. 03/21: H&H 1 baseline. #6. Dementia, unclear type with unclear behavioral disturbance history: Continue memantine and donepezil regimen #7. Chronic Kidney Disease Stage II per GFR trending: Admission BUN/Cr 13/1.28, GFR 59 although primarily from review is consistent with stage II, baseline renal function 0.9-1.2, repeat BMP in AM. #8. 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 A1c ordered for tomorrow AM. Accu-Chek before meals and at bedtime with Humalog sliding scale coverage and hypoglycemia protocol. #9. Hypertension: Continue home regimen including valsartan, torsemide, nifedipine, amlodipine, PRN hydralazine. #10. Multiple other comorbidities include dyslipidemia, BPH, GERD, obstructive sleep apnea on BiPAP, psoriasis: Home medications reconciliation done Hyperlipidemia: continue patient on statin therapy. 11. DVT prophylaxis: Lovenox. CODE status: Patient HCPOA is his he notes and living will is currently in place. Discussed CODE status at length including difference between FULL code, DNR-CCA and DNR-CC status. Following discussions about the differences in these status with both the patient and his who is present, requested DNR-CCA, no intubation status. Charges/Coding Visit Charges Inpatient E&M: 77533 Subs Hosp L2
[2024-03-21] MEDS: Metoprolol Tartrate 25 MG Tablet 12.5 MG PO ×2 (11:20→21:01)
[2024-03-21] MEDS: traMADol 50 MG Tablet PO ×2 (11:20→22:34)
[2024-03-21] MEDS: Aspirin E.C. 81 MG Tablet PO (11:20)
[2024-03-21] MEDS: Tamsulosin HCl 0.4 MG Capsule PO (11:25)
[2024-03-21] MEDS: Enoxaparin 40 MG/0.4 ML Syringe SC (11:25)
[2024-03-21] MEDS: Ascorbic Acid 500 MG Tablet PO ×2 (11:26→21:13)
[2024-03-21] MEDS: Pantoprazole Sodium 40 MG Tablet PO (11:26)
[2024-03-21] MEDS: Sertraline 50 MG Tablet PO (11:27)
[2024-03-21] MEDS: Furosemide 40 MG/4 ML Vial IV (11:36)
[2024-03-21 12:06] LABS: Bedside Glucose 282 mg/dL (74-106)
[2024-03-21] MEDS: Glucerna Shake 120 ML LIQUID PO (13:58)
[2024-03-21 17:16] LABS: Bedside Glucose 286 mg/dL (74-106)
--- NOTE | 2024-03-21 20:36 | CPS ---
Patient refused PAP therapy for night time use, does not wear at home.
[2024-03-21] MEDS: ROFLUMILAST 500 MCG TABLET PO (20:59)
[2024-03-21] MEDS: Magnesium Chloride 64 MG Delay Rel.Tablet 128 MG PO (21:02)
[2024-03-21] MEDS: Atorvastatin Calcium 40 MG Tablet PO (21:03)
[2024-03-21] MEDS: 0.9% Saline Lock 10 ML Syringe IV (21:09)
[2024-03-21] MEDS: Montelukast 10 MG Tablet PO (21:14)
[2024-03-21] MEDS: Memantine Hydrochloride 10 MG Tablet PO (21:16)
[2024-03-21] MEDS: Donepezil HCl 5 MG Tablet PO (21:18)
[2024-03-21] MEDS: Mirtazapine 30 MG Tablet PO (22:35)
[2024-03-21 22:55] LABS: Bedside Glucose 249 mg/dL (74-106)
[2024-03-22] VITALS (18 sets, daily range): BP systolic 111–176; BP diastolic 44–78; PULSE 51–84; RESP 14–20; TEMP 36.5–37; O2SAT 89–98; BMI 35.4
[2024-03-22] MEDS: Piperacil/Tazobactam 3.375 GM in 0.9% Normal Saline (50mL MB+) 50 ML IV ×3 (06:42→21:29)
[2024-03-22] MEDS: Gabapentin 300 MG Capsule PO ×3 (06:43→21:16)
[2024-03-22] MEDS: Ferrous Gluconate 324 MG Tablet PO ×3 (06:43→21:19)
[2024-03-22] MEDS: Insulin Lispro 100 UNIT/ML INSULN.PEN SC ×4 (06:44→21:33)
[2024-03-22 07:07] LABS: Absolute Lymphocyte Count 0.38 X10^3/uL (0.83-4.51); Absolute Neutrophil Count 4.7 X10^3/uL (2.0-7.7); Basophil# 0.02 X10^3/uL; Basophil% 0.4 % (0-1); Eosinophil# 0.17 X10^3/uL; Hematocrit 27.9 % (40-54); Hemoglobin 9.5 g/dL (13.0-16.5); Lymphocyte # 0.38 X10^3/ul (0.83-4.51); Lymphocyte % 6.7 % (19-41); Mean Corp Hgb Conc 34.1 g/dL (32-36); Mean Corpuscular Hgb 32.5 pg (27.0-32.0); Mean Corpuscular Volume 95.5 fL (80-94); Monocyte# 0.33 X10^3/uL; Monocyte% 5.9 % (0-10); NRBC Flagged by Analyzer 0 % (0-5); Neutrophil % 83.3 % (47-70); POSITIVE DIFFERENTIAL YES; Platelet Count 197 K/mm3 (150-450); RBC Distribution Width CV 13.1 % (11.6-14.6); RBC Distribution Width SD 45.4 fl (35.1-43.9); Red Blood Count 2.92 M/mm3 (4.6-6.2); White Blood Count 5.6 K/mm3 (4.4-11.0)
[2024-03-22] MEDS: Budesonide Respules 0.5 MG/2 ML AMPUL.NEB. INHALATION ×2 (07:18→20:05)
[2024-03-22 07:50] LABS: Bedside Glucose 228 mg/dL (74-106)
--- NOTE | 2024-03-22 10:22 | PN.HOSP_ITS ---
Reason for Visit Reason for Visit: Diagnoses Pneumonia, unspecified organism (03/20/24) Subjective Subjective Breathing well. Objective Data Objective Data Vital Signs: Vital Signs Temp Pulse Resp BP Pulse Ox O2 Del Method O2 Flow Rate 36.6 C 80 16 149/78 H 93 Nasal Cannula 2 03/22/24 06:00 03/22/24 07:18 03/22/24 07:18 03/22/24 06:00 03/22/24 07:18 03/22/24 07:18 03/22/24 07:18 Oxygen Flow Rate (L/min) 2 Oxygen Delivery Method Nasal Cannula Weight: 102.5 kg Body Mass Index (BMI) 35.4 Intake & Output: Intake and Output for Last 24 Hours 03/20/24 03/21/24 03/22/24 23:59 23:59 23:59 Intake Total 3725 / 3725 1875 / 1875 170 / 170 Output Total 500 / 500 3600 / 3600 360 / 360 Balance 3225 / 3225 -1725 / -1725 -190 / -190 Lab / Micro Data 03/22/24 06:30 03/21/24 06:05 Labs: Laboratory Results - last 24 hr 03/21/24 11:40: POC Glucose 282 H 03/21/24 16:18: POC Glucose 286 H 03/21/24 22:33: POC Glucose 249 H 03/22/24 06:30: WBC 5.6, RBC 2.92 L, Hgb 9.5 L, Hct 27.9 L, MCV 95.5 H, MCH 32.5 H, MCHC 34.1, RDW Std Deviation 45.4 H, RDW Coeff of Anthony 13.1, Plt Count 197, MPV 9.0, Immature Gran % (Auto) 0.700, Neut % (Auto) 83.3 H, Lymph % (Auto) 6.7 L, [place] % (Auto) 5.9, Eos % (Auto) 3.0, Baso % (Auto) 0.4, Absolute Neuts (auto) 4.7, Absolute Lymphs (auto) 0.38 L, Nucleated RBC % 0 03/22/24 06:43: POC Glucose 228 H Micro: Microbiology 03/20/24 04:50 Sputum, Expectorated/Coughed Gram Stain - Final 03/20/24 04:50 Sputum, Expectorated/Coughed Respiratory Culture - Final 03/19/24 23:05 Blood Culture (Wb) - Other Blood Culture - Preliminary No growth in 48 hours. 03/20/24 03:54 Mucosa - Nose Respiratory Panel (PCR) - Final 03/20/24 03:52 Nasal Secretion MRSA (PCR) - Final 03/20/24 00:30 Urine, Clean Catch Legionella Antigen - Final 03/20/24 00:30 Urine, Clean Catch Streptococcus pneumoniae Antigen (M - Final 03/19/24 23:05 Mucosa - Nose SARS-CoV-2, Influenza & RSV (PCR) - Final Physical Exam Const alert and no apparent distress HEENT head/scalp atraumatic and moist oral mucous membranes Resp normal respiratory effort, no retractions, no use of accessory muscles and clear to auscultation bilaterally Cardio regular rate, regular rhythm, S1 normal heart sound and S2 normal heart sound GI normal to inspection, nondistended, normoactive bowel sounds, soft to palpation, non-tender and non-distended Extremity normal to inspection and full ROM Assessment & Plan Assessment/Plan (1) Pneumonia: PLAN: Plan MSSA pneumonia * pip/tazo Debility * Discussed with the patient and his that he is not walking around very well. Talk to them about [facility] facility. seemed open to it, however, the patient was adamantly against it. * Tentative plan would be home with home care. Possible discharge as early as the . Chronic conditions: * COPD with chronic hypoxic respiratory failure 2-3L NC with allergic rhinitis: Patient is being managed on scheduled bronchodilator, IV Solu-Medrol, Mucinex, incentive spirometry and Pep. On Daliresp continued from home medication. * CAD: Status post PCI RCA 2017, most recent cardiology visit noted 11/27/23, continue aspirin, statin, valsartan, not on beta-jd therapy potentially secondary to underlying COPD. * PAF/flutter: Not on anticoagulation due to status post Watchman procedure. Currently sinus tachycardia * Chronic anemia/iron deficiency anemia: Admission hemoglobin 11.5, MCV 96 11 and 12, most recent 9.6/29.2%. Platelet count normal. * Dementia, unclear type with unclear behavioral disturbance history: Continue memantine and donepezil regimen * Chronic Kidney Disease Stage II per GFR trending: Admission BUN/Cr 13/1.28, GFR 59 although primarily from review is consistent with stage II, baseline renal function 0.9-1.2, repeat BMP in AM. 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 A1c ordered for tomorrow AM. Accu-Chek before meals and at bedtime with Humalog sliding scale coverage and hypoglycemia protocol. * Hypertension: Continue home regimen including valsartan, torsemide, nifedipine, amlodipine, PRN hydralazine. * Multiple other comorbidities include dyslipidemia, BPH, GERD, obstructive sleep apnea on BiPAP, psoriasis: Home medications reconciliation done * Hyperlipidemia: continue patient on statin therapy. enoxaparin Lovenox. CODE status: DNR-CCA, no intubation status. Charges/Coding Visit Charges Inpatient E&M: 03898 Subs Hosp L2
[2024-03-22] MEDS: Furosemide 40 MG/4 ML Vial IV (11:11)
[2024-03-22] MEDS: Enoxaparin 40 MG/0.4 ML Syringe SC (11:11)
[2024-03-22] MEDS: Metoprolol Tartrate 25 MG Tablet 12.5 MG PO (11:12)
[2024-03-22] MEDS: Sertraline 50 MG Tablet PO (11:12)
[2024-03-22] MEDS: Aspirin E.C. 81 MG Tablet PO (11:12)
[2024-03-22] MEDS: Tamsulosin HCl 0.4 MG Capsule PO (11:12)
[2024-03-22] MEDS: Ascorbic Acid 500 MG Tablet PO ×2 (11:12→21:19)
[2024-03-22] MEDS: Pantoprazole Sodium 40 MG Tablet PO (11:12)
--- NOTE | 2024-03-22 11:15 | CASEMGMT ---
Patient did not do well with therapy yesterday. SW spoke with patient's . SW introduced self and role at [facility]. SW explained patient did not do well with therapy. Patient's would really like for patient to go home at discharge. RN was in the room and said patient did well ambulating to the bathroom today. Patient's said usually once patient's fever breaks he starts to do better. SW said we can see how he does with therapy and continue to follow. Karol Adams BEHAVIOR CLINICIAN MAYDA
[2024-03-22] MEDS: traMADol 50 MG Tablet PO ×2 (11:19→21:26)
[2024-03-22] MEDS: 0.9% Saline Lock 10 ML Syringe IV ×2 (11:19→14:43)
[2024-03-22] MEDS: Acetaminophen 325 MG Tablet 650 MG PO (11:19)
[2024-03-22] MEDS: Glucerna Shake 120 ML LIQUID PO ×3 (11:31→21:15)
--- NOTE | 2024-03-22 11:43 | CASEMGMT ---
JENNIFER placed a call to JENNIFER Daniel at the [facility]. JENNIFER left her a voice mail requesting a return call regarding home based services for patient. Karol OHARA
[2024-03-22 12:01] LABS: Bedside Glucose 264 mg/dL (74-106)
--- NOTE | 2024-03-22 15:38 | CASEMGMT ---
JENNIFER received a return call from Myron at [facility]. She said the home based service is a skilled service so he would not be able to get home [facility] through [facility] and through [facility]. Myron said they often encourage patient's to get home health through their insurance and then once that is complete the [facility] can initiate their [facility] based services. Myron asked that JENNIFER let her know when patient will be discharging. Karol Adams PRICING LEAD MAYDA
[2024-03-22 17:02] LABS: Bedside Glucose 291 mg/dL (74-106)
[2024-03-22] MEDS: ROFLUMILAST 500 MCG TABLET PO (21:16)
[2024-03-22] MEDS: Atorvastatin Calcium 40 MG Tablet PO (21:18)
[2024-03-22] MEDS: Donepezil HCl 5 MG Tablet PO (21:18)
[2024-03-22] MEDS: Magnesium Chloride 64 MG Delay Rel.Tablet 128 MG PO (21:20)
[2024-03-22] MEDS: Memantine Hydrochloride 10 MG Tablet PO (21:21)
[2024-03-22] MEDS: Montelukast 10 MG Tablet PO (21:21)
[2024-03-22] MEDS: Mirtazapine 30 MG Tablet PO (21:22)
[2024-03-23] VITALS (7 sets, daily range): BP systolic 140–157; BP diastolic 56–72; PULSE 59–83; RESP 16–18; TEMP 36.4–36.6; O2SAT 87–97; BMI 34.8
[2024-03-23 00:40] LABS: Bedside Glucose 201 mg/dL (74-106)
[2024-03-23] MEDS: Gabapentin 300 MG Capsule PO ×2 (05:27→14:09)
[2024-03-23] MEDS: Ferrous Gluconate 324 MG Tablet PO (05:27)
[2024-03-23] MEDS: Piperacil/Tazobactam 3.375 GM in 0.9% Normal Saline (50mL MB+) 50 ML IV (05:27)
[2024-03-23] MEDS: Insulin Lispro 100 UNIT/ML INSULN.PEN SC ×2 (05:32→10:56)
[2024-03-23 07:02] LABS: Bedside Glucose 216 mg/dL (74-106)
[2024-03-23] MEDS: Budesonide Respules 0.5 MG/2 ML AMPUL.NEB. INHALATION (07:59)
--- NOTE | 2024-03-23 09:11 | PN.HOSP_ITS ---
Reason for Visit Reason for Visit: Diagnoses Pneumonia, unspecified organism (03/20/24) Subjective Subjective Breathing well. No events overnight. Objective Data Objective Data Vital Signs: Vital Signs Temp Pulse Resp BP Pulse Ox O2 Del Method O2 Flow Rate 36.6 C 83 18 143/72 H 92 Nasal Cannula 2 03/23/24 05:00 03/23/24 05:00 03/23/24 05:00 03/23/24 05:00 03/23/24 05:00 03/23/24 05:00 03/23/24 05:00 Oxygen Flow Rate (L/min) 2 Oxygen Delivery Method Nasal Cannula Weight: 100.9 kg Body Mass Index (BMI) 34.8 Intake & Output: Intake and Output for Last 24 Hours 03/21/24 03/22/24 03/23/24 23:59 23:59 23:59 Intake Total 1875 / 1875 1270 / 1510 290 / 290 Output Total 3600 / 3600 2310 / 4210 1900 / 1900 Balance -1725 / -1725 -1040 / -2700 -1610 / -1610 Lab / Micro Data 03/22/24 06:30 03/21/24 06:05 Labs: Laboratory Results - last 24 hr 03/22/24 11:30: POC Glucose 264 H 03/22/24 15:53: POC Glucose 291 H 03/22/24 21:32: POC Glucose 201 H 03/23/24 05:31: POC Glucose 216 H Micro: Microbiology 03/20/24 04:50 Sputum, Expectorated/Coughed Gram Stain - Final 03/20/24 04:50 Sputum, Expectorated/Coughed Respiratory Culture - Final 03/19/24 23:05 Blood Culture (Wb) - Other Blood Culture - Preliminary No growth in 48 hours. 03/20/24 03:54 Mucosa - Nose Respiratory Panel (PCR) - Final 03/20/24 03:52 Nasal Secretion MRSA (PCR) - Final 03/20/24 00:30 Urine, Clean Catch Legionella Antigen - Final 03/20/24 00:30 Urine, Clean Catch Streptococcus pneumoniae Antigen (M - Final 03/19/24 23:05 Mucosa - Nose SARS-CoV-2, Influenza & RSV (PCR) - Final Physical Exam Const alert and no apparent distress HEENT head/scalp atraumatic and moist oral mucous membranes Resp normal respiratory effort and no retractions Resp Narrative: Faint expiratory wheeze Cardio regular rate, regular rhythm, S1 normal heart sound and S2 normal heart sound GI normal to inspection, nondistended, normoactive bowel sounds, soft to palpation, non-tender and non-distended Extremity normal to inspection Assessment & Plan Assessment/Plan (1) Pneumonia: PLAN: Plan MSSA pneumonia * pip/tazo. Will machine assembler for puller over to doxycycline upon discharge. * Patient did have an ambulatory pulse ox where he required 2 L of oxygen with activity. Oxygen testing reviewed and patient is ambulatory in home and in the community and requires home oxygen with portability. Debility * Discussed with the patient and his that he is not walking around very well. Talk to them about shelter facility. seemed open to it, however, the patient was adamantly against it. * Patient reluctantly open to having home health care services at his house. Chronic conditions: * COPD with chronic hypoxic respiratory failure 2-3L NC with allergic rhinitis: Patient is being managed on scheduled bronchodilator, IV Solu-Medrol, Mucinex, incentive spirometry and Pep. On Daliresp continued from home medication. * CAD: Status post PCI RCA 2017, most recent cardiology visit noted 11/27/23, continue aspirin, statin, valsartan, not on beta-jd therapy potentially secondary to underlying COPD. * PAF/flutter: Not on anticoagulation due to status post Watchman procedure. Currently sinus tachycardia * Chronic anemia/iron deficiency anemia: Admission hemoglobin 11.5, MCV 96 11 and 12, most recent 9.6/29.2%. Platelet count normal. * Dementia, unclear type with unclear behavioral disturbance history: Continue memantine and donepezil regimen * Chronic Kidney Disease Stage II per GFR trending: Admission BUN/Cr /.28, GFR 59 although primarily from review is consistent with stage II, baseline renal function 0.9-1.2, repeat BMP in AM. 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 A1c ordered for tomorrow AM. Accu-Chek before meals and at bedtime with Humalog sliding scale coverage and hypoglycemia protocol. * Hypertension: Continue home regimen including valsartan, torsemide, nifedipine, amlodipine, PRN hydralazine. * Multiple other comorbidities include dyslipidemia, BPH, GERD, obstructive sleep apnea on BiPAP, psoriasis: Home medications reconciliation done * Hyperlipidemia: continue patient on statin therapy. VTE prophylaxis: enoxaparin CODE status: DNR-CCA, no intubation status.
[2024-03-23] MEDS: Ascorbic Acid 500 MG Tablet PO (10:21)
[2024-03-23] MEDS: Pantoprazole Sodium 40 MG Tablet PO (10:21)
[2024-03-23] MEDS: Aspirin E.C. 81 MG Tablet PO (10:21)
[2024-03-23] MEDS: Tamsulosin HCl 0.4 MG Capsule PO (10:21)
[2024-03-23] MEDS: Sertraline 50 MG Tablet PO (10:21)
[2024-03-23] MEDS: Enoxaparin 40 MG/0.4 ML Syringe SC (10:22)
[2024-03-23] MEDS: traMADol 50 MG Tablet PO (10:27)
[2024-03-23] MEDS: 0.9% Saline Lock 10 ML Syringe IV (10:32)
[2024-03-23] MEDS: NIFEdipine 60 MG Tablet PO (10:46)
[2024-03-23] MEDS: Metoprolol Tartrate 25 MG Tablet 12.5 MG PO (10:47)
[2024-03-23] MEDS: Losartan Potassium 25 MG Tablet PO (10:47)
[2024-03-23] MEDS: Furosemide 40 MG/4 ML Vial IV (10:47)
[2024-03-23] MEDS: Glucerna Shake 120 ML LIQUID PO (10:57)
--- NOTE | 2024-03-23 11:24 | CASEMGMT ---
Addendum entered by Joselyn Doherty 03/23/24 14:03: RN CM received call back from [facility] and they are able to accept patient with start of care for . RN CM called and updated . had no further questions or concerns. RN CM updated discharge plan. Original Note: RN CM updated that patient is ready for discharge today. Per nursing patient is maintaining on baseline oxygen. RN CM in to discuss HHC at discharge as recommended by hospitalist. at bedside, patient and agreeable to HHC and prefer [facility], declined HHC list. Patient and denied further needs or concerns. Patient and had no further questions at this time. RN CM called and made referral to [facility], awaiting acceptance. CM will continue to follow this patient and plan for a safe discharge.
[2024-03-23 12:11] LABS: Bedside Glucose 287 mg/dL (74-106)
--- NOTE | 2024-03-23 12:45 | DS.PCM_ITS ---
Providers Date of Admission: 03/20/24 Primary Care Physician: Dr. Leonel Orr MD Reason For Visit: [facility] FAILED OUTPT ABX Diagnosis Discharge Diagnosis (1) Pneumonia: Status: Acute Code(s): J18.9 - Pneumonia, unspecified organism Plan MSSA pneumonia * pip/tazo. Will traveler changer to Bactrim upon discharge. * Patient did have an ambulatory pulse ox where he required 2 L of oxygen with activity. Oxygen testing reviewed and patient is ambulatory in home and in the community and requires home oxygen with portability. Debility * Discussed with the patient and his that he is not walking around very well. Talk to them about longterm facility. seemed open to it, however, the patient was adamantly against it. * Patient reluctantly open to having home health care services at his house. Chronic conditions: * COPD with chronic hypoxic respiratory failure 2-3L NC with allergic rhinitis: Patient is being managed on scheduled bronchodilator, IV Solu-Medrol, Mucinex, incentive spirometry and Pep. On Daliresp continued from home medication. * CAD: Status post PCI RCA 2017, most recent cardiology visit noted 11/27/23, continue aspirin, statin, valsartan, not on beta-jd therapy potentially secondary to underlying COPD. * PAF/flutter: Not on anticoagulation due to status post Watchman procedure. Currently sinus tachycardia * Chronic anemia/iron deficiency anemia: Admission hemoglobin 11.5, MCV 96 11 and 12, most recent 9.6/29.2%. Platelet count normal. * Dementia, unclear type with unclear behavioral disturbance history: Continue memantine and donepezil regimen * Chronic Kidney Disease Stage II per GFR trending: Admission BUN/Cr 13/1.28, GFR 59 although primarily from review is consistent with stage II, baseline renal function 0.9-1.2, repeat BMP in AM. 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 A1c ordered for tomorrow AM. Accu-Chek before meals and at bedtime with Humalog sliding scale coverage and hypoglycemia protocol. * Hypertension: Continue home regimen including valsartan, torsemide, nifedipine, amlodipine, PRN hydralazine. * Multiple other comorbidities include dyslipidemia, BPH, GERD, obstructive sleep apnea on BiPAP, psoriasis: Home medications reconciliation done * Hyperlipidemia: continue patient on statin therapy. VTE prophylaxis: enoxaparin CODE status: DNR-CCA, no intubation status. Medications at Discharge Home Medications albuterol sulfate 90 mcg/actuation aerosol inhaler 2 puff inhalation Q4H PRN PRN Shortness Of Breath 06/24/15 atorvastatin 40 mg tablet 40 mg PO QHS Cholesterol 06/24/15 metformin 1,000 mg tablet 1,000 mg PO BIDCM Diabetes 06/24/15 valsartan 320 mg tablet 320 mg PO DAILY BP 06/24/15 omega-3 fatty acids 1,000 mg capsule (Fish Oil Concentrate) 1,000 mg PO BID Heart health 04/14/18 roflumilast 500 mcg tablet (Daliresp) 500 mcg PO QPM COPD 04/14/18 tamsulosin 0.4 mg capsule 0.4 mg PO DAILY Prostate 04/14/18 albuterol sulfate 2.5 mg/3 mL (0.083 %) solution for nebulization 2.5 mg inhalation 4X/DAY PRN Sob &/Or Wheezing 10/15/18 torsemide 10 mg tablet 5 mg PO DAILY diuretic 10/15/18 magnesium oxide 400 mg PO QHS supplement 10/25/20 sertraline 50 mg tablet 50 mg PO DAILY mental health 08/01/21 ascorbic acid (vitamin C) 500 mg tablet 500 mg PO BID vitamin #60 tabs 11/27/21 clotrimazole 1 % topical cream 1 applic topical BID PRN feet 11/27/21 pantoprazole 40 mg tablet,delayed release (Protonix) 40 mg PO DAILY reflux #30 tabs 11/27/21 nifedipine 90 mg tablet,extended release 90 mg PO DAILY blood pressure 03/15/22 tramadol 50 mg tablet 50 mg PO BID Pain 03/15/22 acetaminophen 650 mg tablet,extended release 1,300 mg PO Q12H pain 05/08/22 gabapentin 300 mg capsule 300 mg PO TID pain 05/08/22 dextromethorphan-guaifenesin 30 mg-600 mg tablet extended [id number] hr (Mucinex DM) 2 tab PO BID secretions 7 days #28 tabs 07/27/22 donepezil 5 mg tablet 5 mg PO QHS dementia 11/27/22 aspirin 81 mg tablet,delayed release (Adult Low Dose Aspirin) 81 mg PO DAILY heart health 05/29/23 budesonide 160 mcg-glycopyr 9 mcg-formot 4.8 mcg/actuation HFA inhaler (Breztri Aerosphere) 2 inh inhalation BID breathing 05/29/23 mirtazapine 15 mg tablet 30 mg PO QHS SLEEP 05/29/23 cholecalciferol (vitamin D3) 25 mcg (1,000 unit) capsule (Vitamin D3) 25 mcg PO DAILY vitamin 07/08/23 montelukast 10 mg tablet 10 mg PO QHS allergies 07/08/23 amlodipine 5 mg tablet 5 mg PO DAILY blood pressure #90 tabs 07/21/23 ferrous gluconate 324 mg (37.5 mg iron) tablet 324 mg PO BID supplement 11/27/23 memantine 5 mg tablet 10 mg PO QPM dementia 11/27/23 metoprolol tartrate 25 mg tablet 12.5 mg PO BID 03/19/24 sulfamethoxazole 800 mg-trimethoprim 160 mg tablet (Bactrim DS) 1 tab PO BID #6 tabs 03/23/24 Hospital Course Operations None Procedures None Summary of Care Provided Minutes Spent on Discharge: 32 Weight / BMI Weight Weight: 100.9 kg Body Mass Index (BMI) 34.8 ABG / Lab / Microbiology Data 03/22/24 06:30 03/21/24 06:05 Laboratory: Laboratory Results - last 24 hr 03/22/24 15:53: POC Glucose 291 H 03/22/24 21:32: POC Glucose 201 H 03/23/24 05:31: POC Glucose 216 H 03/23/24 10:55: POC Glucose 287 H Microbiology: Microbiology 03/20/24 04:50 Sputum, Expectorated/Coughed Gram Stain - Final 03/20/24 04:50 Sputum, Expectorated/Coughed Respiratory Culture - Final 03/19/24 23:05 Blood Culture (Wb) - Other Blood Culture - Preliminary No growth in 48 hours. 03/20/24 03:54 Mucosa - Nose Respiratory Panel (PCR) - Final 03/20/24 03:52 Nasal Secretion MRSA (PCR) - Final 03/20/24 00:30 Urine, Clean Catch Legionella Antigen - Final 03/20/24 00:30 Urine, Clean Catch Streptococcus pneumoniae Antigen (M - Final 03/19/24 23:05 Mucosa - Nose SARS-CoV-2, Influenza & RSV (PCR) - Final D/C Instructions Discharge Diet: 2000 Calorie Control Diet Meaningful Use Info Meaningful Use Meaningful Use Diagnoses (Choose all that apply): None applicable Ischemic Stroke Statin Dosing Therapy Reference: STATIN DOSE THERAPY REFERENCE: * Patients > 75 years receive moderate or high dose statin therapy. * Patients 75 years or YOUNGER should receive HIGH intensity statin dose unless contraindicated. You will be required to document reason for non-treatment if statin daily dose does not meet guidelines. HIGH DOSE STATIN THERAPY DAILY Atorvastatin > than or = to 40 mg Rosuvastatin > than or = to 20 mg Amlodipine + Atorvastatin > than or = to 2.5/40 mg Ezetimibe + Simvastatin 10/80 mg Simvastatin 80mg Discharge Plan Admission Admit Date/Time: 03/20/24 01:49 Primary Reason for Your Visit: Pneumonia Attending Provider: Yong Olivo Primary Care Provider: Leonel Orr Consulting Providers: Jade Veliz; Enrique Hawthorne Discharge Orders/Prescriptions Prescriptions: New sulfamethoxazole-trimethoprim [Bactrim DS] 800-160 mg tablet 1 tab PO BID Qty: 6 0RF Continued Daliresp 500 mcg tablet 500 mcg PO QPM Rx Instructions: Takes in the PM omega-3 fatty acids [Fish Oil Concentrate] 1,000 mg capsule 1,000 mg PO BID tamsulosin 0.4 mg capsule 0.4 mg PO DAILY torsemide 10 mg tablet 5 mg PO DAILY albuterol sulfate 2.5 mg /3 mL (0.083 %) solution for nebulization 2.5 mg INHALATION 4X/DAY PRN (Reason: Sob &/Or Wheezing) magnesium oxide 400 mg magnesium tablet 400 mg PO QHS acetaminophen 650 mg tablet extended release 1,300 mg PO Q12H gabapentin 300 mg capsule 300 mg PO TID sertraline 50 mg tablet 50 mg PO DAILY donepezil 5 mg tablet 5 mg PO QHS memantine 5 mg tablet 10 mg PO QPM aspirin [Adult Low Dose Aspirin] 81 mg tablet,delayed release (DR/EC) 81 mg PO DAILY Breztri Aerosphere 160-9-4.8 mcg/actuation HFA aerosol inhaler 2 inh inhalation BID atorvastatin 40 MG tablet 40 mg PO QHS Patient Comments: CHOLESTEROL albuterol sulfate 1 PUFF inhaler 2 puff INHALATION Q4H PRN PRN (Reason: Shortness Of Breath) Patient Comments: BREATHING clotrimazole 1 % Cream 1 applic TOPICAL BID PRN (Reason: feet) pantoprazole [Protonix] 40 mg tablet,delayed release (DR/EC) 40 mg PO DAILY Qty: 30 2RF ascorbic acid (vitamin C) 500 mg tablet 500 mg PO BID Qty: 60 0RF nifedipine 90 mg Tablet Extended Release 90 mg PO DAILY tramadol 50 mg Tablet 50 mg PO BID Mucinex DM 30-600 mg Tablet Extended Release 12 Hr 2 tab PO BID 7 Days Qty: 28 0RF mirtazapine 15 mg tablet 30 mg PO QHS cholecalciferol (vitamin D3) [Vitamin D3] 25 mcg (1,000 unit) capsule 25 mcg PO DAILY montelukast 10 mg tablet 10 mg PO QHS ferrous gluconate 324 mg (37.5 mg iron) tablet 324 mg PO BID metoprolol tartrate 25 mg tablet 12.5 mg PO BID amlodipine 5 mg tablet 5 mg PO DAILY Qty: 90 3RF Held metformin 1,000 MG tablet 1,000 mg PO BIDCM Hold Instructions: Resume on 03/24/24. Patient Comments: DIABETES valsartan 320 MG tablet 320 mg PO DAILY Hold Instructions: Resume on 03/27/24. Patient Comments: BLOOD PRESSURE Referrals / Follow Up: Leonel Orr MD [Primary Care Provider] - Within 2 Weeks Disposition Disposition (needs filled in before D/C Order can be placed): Home Health Service Charges/Coding Visit Charges Inpatient E&M: 91846 Disch Hosp >30min
--- NOTE | 2024-03-23 14:42 | CASEMGMT ---
JENNIFER updated patient's that JENNIFER did communicate with Myron, the social science manager at the [facility] and let her know they are interested in services. JENNIFER will have the [facility] JENNIFER keep in touch with Myron at [place]. JENNIFER then sent [facility] JENNIFER Ortiz an email with an update. JENNIFER did complete a GEC and faxed it along with H&P and D/C summary to Myron at the [facility]. JENNIFER also called Myron and updated her on the plan. Karol OHARA
== END 2024-03-23 15:30 | disposition home health service (06) | DRG 178 ==
LOC: ED 03-20 01:41 → PCU 03-20 01:56
PROVIDERS: Internal Medicine; Admitting Provider Family Medicine; Emergency Provider Emergency Medicine; PCP Family Medicine
DX: J15.211 Pneumonia due to Methicillin susceptible Staphylococcus aureus (principal); J44.0 Chronic obstructive pulmonary disease with (acute) lower respiratory infection; J96.11 Chronic respiratory failure with hypoxia; E87.20 Acidosis, unspecified; E11.22 Type 2 diabetes mellitus with diabetic chronic kidney disease; D50.9 Iron deficiency anemia, unspecified; F03.90 Unspecified dementia, unspecified severity, without behavioral disturbance, psychotic disturbance, mood disturbance, and anxiety; I12.9 Hypertensive chronic kidney disease with stage 1 through stage 4 chronic kidney disease, or unspecified chronic kidney disease; F32.A Depression, unspecified; E11.40 Type 2 diabetes mellitus with diabetic neuropathy, unspecified; E11.65 Type 2 diabetes mellitus with hyperglycemia; K57.30 Diverticulosis of large intestine without perforation or abscess without bleeding; L40.9 Psoriasis, unspecified; G47.33 Obstructive sleep apnea (adult) (pediatric); N18.2 Chronic kidney disease, stage 2 (mild); J30.9 Allergic rhinitis, unspecified; K21.9 Gastro-esophageal reflux disease without esophagitis; I25.10 Atherosclerotic heart disease of native coronary artery without angina pectoris; E78.5 Hyperlipidemia, unspecified; Z51.5 Encounter for palliative care; Z79.891 Long term (current) use of opiate analgesic; Z86.16 Personal history of COVID-19; Z79.84 Long term (current) use of oral hypoglycemic drugs; Z95.5 Presence of coronary angioplasty implant and graft; Z87.891 Personal history of nicotine dependence; Z66 Do not resuscitate; Z82.3 Family history of stroke; R53.81 Other malaise; N40.0 Benign prostatic hyperplasia without lower urinary tract symptoms; R00.0 Tachycardia, unspecified
CPT/HCPCS: 36415; 71275; 74174; 80053; 81001; 82550; 82962; 83605; 84484; 85025; 87040; 87070; 87205; 87449; 87631; 87633; 87641; 93005; 94640; 94762; 97110; 97161; 97166; 97530; 99284; J7030; J7040; J7050; Q9967; A4216; J1940

== ENCOUNTER 2024-03-24 05:35 | Inpatient (IN) | payer OTHER, SELFPAY ==
[2018-05-01 14:21] VITALS: BMI 36.8
[2024-03-24] VITALS (34 sets, daily range): BP systolic 106–165; BP diastolic 53–128; PULSE 54–154; RESP 12–24; TEMP 36.1–37.7; O2SAT 90–96; BMI 35.3; BMI 34.1
--- NOTE | 2024-03-24 05:50 | RAD_ITS ---
EXAM: XR CHEST, 1 VIEW CLINICAL INDICATION: Chest pain Chest pain TECHNIQUE: Frontal view of the chest. COMPARISON: Chest x-ray 03/09/2024. CTA chest 03/19/2024. FINDINGS: LUNGS AND PLEURAL SPACES: There is likely to represent persistent lingular infiltrate, demonstrated on recent CTA chest. There is increased interstitial prominence the right lower lung field, which may represent early pneumonia. No pneumothorax. No effusion. HEART: Unremarkable. Cardiac silhouette not enlarged. MEDIASTINUM: Central airways and mediastinal contour are unremarkable. BONES/JOINTS: There are multilevel degenerative changes in the visualized spine. No acute fracture. SOFT TISSUES: Unremarkable. RAD/Chest 1 View (Portable) IMPRESSION: Persistent lingular infiltrate. Suspect early right upper lobe infiltrate. Electronically Signed: Jose Alfredo Neumann MD at 7:18 EDT Reading Location ID and State: [facility] / [place] , Service support ,
--- NOTE | 2024-03-24 05:50 | EKG12_ITS ---
Test Reason : pre cardioersion Blood Pressure : / mmHG Vent. Rate : 126 BPM Atrial Rate : 300 BPM P-R Int : 000 ms QRS Dur : 088 ms QT Int : 322 ms P-R-T Axes : 000 055 139 degrees QTc Int : 466 ms Atrial flutter with variable A-V block Nonspecific T wave abnormality Abnormal ECG Confirmed by Osmany Lott ([id number]), editor producer RENÉ SANDOVAL ([id number]) on 03/30/2024 1:59:19 PM Referred By: Confirmed By:Osmany Lott
--- NOTE | 2024-03-24 05:52 | EX.ED.DYSGE1 ---
HPI History of Present Illness Chief Complaint: General Illness Onset/Context/Timing Onset: Today Context: Sudden Onset Timing: Continuous Quality: Dyspnea on exertion Location: Chest Worsened by: Exertion Relieved by: Rest Narrative Narrative: Patient presents with shortness of breath that began approximately 2 hours prior to arrival. Patient got up to use the restroom and was having shortness of breath from walking to the restroom. states that she was able to get the patient to rest and his breathing seemed to improve but he was still having some shortness of breath. Patient was recently admitted to the hospital for pneumonia which grew out staph. Patient has a history of COPD and a history of Alzheimer's dementia. Patient is a poor informant. states patient does have a history of paroxysmal atrial fibrillation and had a Watchman procedure for that. [facility] Medical History (Updated 03/24/24 @ 07:[address] Yong Bass, ) Presence of Watchman left atrial appendage closure device Transaminitis COPD with acute exacerbation Pneumonia Acute and chronic respiratory failure with hypoxia Diabetes GERD (gastroesophageal reflux disease) GI bleed Former smoker On home oxygen therapy Sleep apnea BiPAP (biphasic positive airway pressure) dependence Atrial fibrillation COPD exacerbation History of GI bleed Acute on chronic anemia Encounter for screening for COVID-19 History of short term memory loss Anemia COVID Suspected COVID-19 virus infection Acute and chronic respiratory failure with hypoxia Paroxysmal atrial fibrillation Atrial fibrillation and flutter Presence of stent in coronary artery (~05/01/18) Hydrocele, bilateral Dyspnea Pulmonary HTN CAD (coronary artery disease) Hypokalemia Lung nodule, multiple Alcoholism ELISHA (obstructive sleep apnea) Atherosclerotic heart disease of [place] coronary artery without angina pectoris Hyperlipemia Type 2 diabetes mellitus Essential hypertension COPD (chronic obstructive pulmonary disease) Home Medications ?Medication ?Instructions ?Recorded ?Last Taken ?Type albuterol sulfate 90 mcg/actuation 2 puff inhalation Q4H PRN PRN 06/24/15 07/22/22 History aerosol inhaler Shortness Of Breath atorvastatin 40 mg tablet 40 mg PO QHS Cholesterol 06/24/15 07/21/22 History metformin 1,000 mg tablet 1,000 mg PO BIDCM Diabetes 06/24/15 07/22/22 History valsartan 320 mg tablet 320 mg PO DAILY BP 06/24/15 07/22/22 History omega-3 fatty acids 1,000 mg 1,000 mg PO BID Heart health 04/14/18 07/22/22 History capsule (Fish Oil Concentrate) roflumilast 500 mcg tablet 500 mcg PO QPM COPD 04/14/18 07/21/22 History (Daliresp) tamsulosin 0.4 mg capsule 0.4 mg PO DAILY Prostate 04/14/18 07/21/22 History albuterol sulfate 2.5 mg/3 mL 2.5 mg inhalation 4X/DAY PRN Sob 10/15/18 07/22/22 History (0.083 %) solution for nebulization &/Or Wheezing torsemide 10 mg tablet 5 mg PO DAILY diuretic 10/15/18 07/22/22 History magnesium oxide 400 mg PO QHS supplement 10/25/20 07/21/22 History sertraline 50 mg tablet 50 mg PO DAILY mental health 08/01/21 07/22/22 History ascorbic acid (vitamin C) 500 mg 500 mg PO BID vitamin #60 tabs 11/27/21 07/22/22 Rx tablet clotrimazole 1 % topical cream 1 applic topical BID PRN feet 11/27/21 Unknown History pantoprazole 40 mg tablet,delayed 40 mg PO DAILY reflux #30 tabs 11/27/21 07/22/22 Rx release (Protonix) nifedipine 90 mg tablet,extended 90 mg PO DAILY blood pressure 03/15/22 07/22/22 History release tramadol 50 mg tablet 50 mg PO BID Pain 03/15/22 07/22/22 History acetaminophen 650 mg 1,300 mg PO Q12H pain 05/08/22 07/21/22 History tablet,extended release gabapentin 300 mg capsule 300 mg PO TID pain 05/08/22 07/22/22 History dextromethorphan-guaifenesin 30 2 tab PO BID secretions 7 days #28 07/27/22 Unknown Rx mg-600 mg tablet extended tabs [id number] hr (Mucinex DM) donepezil 5 mg tablet 5 mg PO QHS dementia 11/27/22 Unknown History aspirin 81 mg tablet,delayed 81 mg PO DAILY heart health 05/29/23 Unknown History release (Adult Low Dose Aspirin) budesonide 160 mcg-glycopyr 9 2 inh inhalation BID breathing 05/29/23 Unknown History mcg-formot 4.8 mcg/actuation HFA inhaler (Breztri Aerosphere) mirtazapine 15 mg tablet 30 mg PO QHS SLEEP 05/29/23 Unknown History cholecalciferol (vitamin D3) 25 25 mcg PO DAILY vitamin 07/08/23 Unknown History mcg (1,000 unit) capsule (Vitamin D3) montelukast 10 mg tablet 10 mg PO QHS allergies 07/08/23 Unknown History amlodipine 5 mg tablet 5 mg PO DAILY blood pressure #90 07/21/23 Unknown Rx tabs ferrous gluconate 324 mg (37.5 mg 324 mg PO BID supplement 11/27/23 Unknown History iron) tablet memantine 5 mg tablet 10 mg PO QPM dementia 11/27/23 Unknown History metoprolol tartrate 25 mg tablet 12.5 mg PO BID 03/19/24 Unknown History sulfamethoxazole 800 1 tab PO BID #6 tabs 03/23/24 Unknown Rx mg-trimethoprim 160 mg tablet (Bactrim DS) Allergy/AdvReac Type Severity Reaction Status Date / Time doxycycline Allergy Severe Rash Verified 03/24/24 05:41 empagliflozin (From AdvReac Severe yeast Verified 03/24/24 05:41 Jardiance) infection lisinopril AdvReac Intermediate Cough Verified 03/24/24 05:41 Family History Father COPD (chronic obstructive pulmonary disease) Heart disease Mother CAD (coronary artery disease) Myocardial infarction CVA (cerebral vascular accident) Diabetes Brother CAD (coronary artery disease) Pacemaker Diabetes History of coronary artery bypass surgery Brother Brain aneurysm Surgical History History of coronary artery stent placement History of left heart catheterization (LHC) (~02/06/21) Presence of coronary angioplasty implant and graft (~05/01/18) History of cardiac catheterization History of hip replacement Social History household members: spouse Smoking Status: Former smoker how long ago did patient quit smokin years ago, smoked since 14 years old. alcohol intake: former details: Quit in 1980 substance use type: does not use caffeine: Yes Type: coffee Number of servings: 2 ROS ROS ED Constitutional Constitutional ED: Denies chills or fever(s) Eyes Eyes: Denies blurry vision or change in vision ENT ENT ED: Denies rhinorrhea or sore throat Cardiovascular Cardiovascular: Reports palpitations; Denies chest pain Respiratory/Chest Respiratory/Chest: Reports cough; Denies dyspnea Gastrointestinal Gastrointestinal: Denies nausea or vomiting Genitourinary Genitourinary ED: Denies dysuria or hematuria Musculoskeletal Musculoskeletal: Denies back pain or neck pain Integumentary Denies abscess or rash Neurologic Neurologic: Denies headache(s) or weakness Allergic/Immunologic Allergic/Immunologic ED: Denies mouth swelling or urticaria EXAM Physical Exam Const Vital Signs: 03/24/24 05:37 03/24/24 05:40 03/24/24 06:00 Temperature 99.8 F H 99.8 F H Temperature Source Oral Oral Pulse Rate 151 H 151 H Respiratory Rate 19 H 24 H Respiratory Effort Short of Breath Respiratory Pattern Tachypnea Blood Pressure 156/128 H 133/67 H Blood Pressure Mean 137 89 Pulse Ox 90 92 Oxygen Delivery Method Nasal Cannula Nasal Cannula Oxygen Flow Rate (L/min) 3 3 03/24/24 06:40 03/24/24 06:41 03/24/24 06:50 Temperature 99.7 F H Temperature Source Oral Pulse Rate 150 H 152 H 151 H Respiratory Rate 17 17 19 H Respiratory Effort Respiratory Pattern Blood Pressure 159/88 H 145/78 H 145/78 H Blood Pressure Mean 111 100 100 Pulse Ox 94 93 94 Oxygen Delivery Method Nasal Cannula Nasal Cannula Nasal Cannula Oxygen Flow Rate (L/min) 4 4 4 03/24/24 07:00 03/24/24 07:00 Temperature 99.7 F H Temperature Source Oral Pulse Rate 152 H 152 H Respiratory Rate 17 17 Respiratory Effort Respiratory Pattern Blood Pressure 165/87 H 165/87 H Blood Pressure Mean 113 113 Pulse Ox 94 94 Oxygen Delivery Method Nasal Cannula Nasal Cannula Oxygen Flow Rate (L/min) 4.5 4.5 Positive well nourished and well developed General Appearance ED: well developed and NAD HEENT Reports moist mucous membranes Neck supple and no JVD Resp normal respiratory effort and clear to auscultation bilaterally Cardio regular rhythm Rate: tachycardic GI non-tender and non-distended Palpation: soft Neuro CN's II-XII intact bilaterally and no sensory deficits noted Sensorium / Orientation: alert Motor Exam: strength 5/5 throughout Psych mental status grossly normal MDM MDM MDM Narrative Medical decision making narrative: Differential diagnose includes cardiac dysrhythmia, cardiac ischemia, electrolyte abnormality, pneumonia, and dehydration. EKG will be obtained to assess for cardiac dysrhythmia and cardiac ischemia. Chest x-ray will be obtained to assess for pneumonia. CBC will be obtained to assess for leukocytosis and anemia. Basic metabolic profile will be obtained to assess for electrolyte abnormality and renal function. High-sensitivity troponin will be obtained to assess for cardiac ischemia. Serum lactate will be obtained to assess for sepsis. PT with INR and PTT will be obtained to assess for coagulopathy. Lab Data Attestation: I reviewed the patient's lab results. Lab results narrative: CBC was reviewed. There is a mild anemia with a hemoglobin of 10.6 and hematocrit 31.6. Basic metabolic profile was reviewed. Potassium was slightly low at 3.1. Glucose was elevated at 314. The remainder is within normal limits. PT with INR and PTT were reviewed and were within normal limits. Initial high-sensitivity troponin was reviewed and was normal at 14. Serum lactate was reviewed and was normal at 1.7. Labs: Laboratory Results - last 24 hr 03/24/24 03/24/24 05:55 06:05 WBC 6.9 RBC 3.30 L Hgb 10.6 L Hct 31.6 L MCV 95.8 H MCH 32.1 H MCHC 33.5 RDW Std Deviation 45.1 H RDW Coeff of Anthony 12.8 Plt Count 204 MPV 8.6 Immature Gran % (Auto) 0.400 Neut % (Auto) 91.1 H Lymph % (Auto) 2.9 L [place] % (Auto) 4.3 Eos % (Auto) 1.0 Baso % (Auto) 0.3 Absolute Neuts (auto) 6.3 Absolute Lymphs (auto) 0.20 L Nucleated RBC % 0 PT 13.6 INR 1.0 APTT 29.8 Sodium 135 L Potassium 3.1 L Chloride 100 Carbon Dioxide 27.0 Anion Gap 8 BUN 7 Creatinine 1.03 Estim Creat Clear Calc 73.92 Est GFR (MDRD) Af Amer 91 Est GFR (MDRD) Non-Af 75 BUN/Creatinine Ratio 6.8 L Glucose 314 H Lactic Acid 1.7 Calcium 9.8 Troponin I High Sens 14 Radiography Chest X-Ray - ED: 1 View, Read by ED Physician, Read by Radiologist, Right Infiltrate and Left Infiltrate Diagnostic Testing: Clinical Impression(s) from Imaging Studies Chest X-Ray 03/24/24 05:50 IMPRESSION: Persistent lingular infiltrate. Suspect early right upper lobe infiltrate. Electronically Signed: Jose Alfredo Neumann MD at 7:18 EDT Reading Location ID and State: [facility] / [place] , Service support , Portable chest x-ray was obtained. There is 1 view. On my independent interpretation, there is a persistent lingular infiltrate. There is a early right upper lobe infiltrate. There is no cardiomegaly noted. Bony thorax is normal. Radiologist also interpreted the x-rays and agrees. EKG Initial EKG: Attestation: I personally reviewed and interpreted this EKG as follows: Interpretation: SVT (151) and Non-Specific ST Changes Comments: EKG was obtained. On my independent interpretation, it shows supraventricular tachycardia with a rate of 151. PA interval was normal at 112 ms. QRS interval was normal at 80 ms. QTc interval was normal at 456 ms. [place] is normal at 45. There are nonspecific ST-T wave changes noted. Prior EKG tracings: available for review Prior: Unchanged (03/19/2024) Treatment and Re-Evaluation :: Patient was given adenosine 6 mg here. Patient's heart rate slowed down however, patient was in atrial flutter. Patient's heart rate then increased back up to 150. Patient was given a dose of Cardizem. Patient is given a dose of potassium here. Serum magnesium was ordered. Care of the patient was turned over to the oncoming physician pending response to Cardizem and magnesium results. Discharge Plan Triage Chief Complaint: General Illness ED Provider: Yong Bass Dx/Rx/DC Orders Clinical Impression: Atrial flutter with rapid ventricular response, Hypokalemia, Pneumonia Prescriptions: No Action Daliresp 500 mcg tablet 500 mcg PO QPM Rx Instructions: Takes in the PM omega-3 fatty acids [Fish Oil Concentrate] 1,000 mg capsule 1,000 mg PO BID tamsulosin 0.4 mg capsule 0.4 mg PO DAILY torsemide 10 mg tablet 5 mg PO DAILY albuterol sulfate 2.5 mg /3 mL (0.083 %) solution for nebulization 2.5 mg INHALATION 4X/DAY PRN (Reason: Sob &/Or Wheezing) magnesium oxide 400 mg magnesium tablet 400 mg PO QHS acetaminophen 650 mg tablet extended release 1,300 mg PO Q12H gabapentin 300 mg capsule 300 mg PO TID sertraline 50 mg tablet 50 mg PO DAILY donepezil 5 mg tablet 5 mg PO QHS memantine 5 mg tablet 10 mg PO QPM aspirin [Adult Low Dose Aspirin] 81 mg tablet,delayed release (DR/EC) 81 mg PO DAILY Breztri Aerosphere 160-9-4.8 mcg/actuation HFA aerosol inhaler 2 inh inhalation BID atorvastatin 40 MG tablet 40 mg PO QHS Patient Comments: CHOLESTEROL metformin 1,000 MG tablet 1,000 mg PO BIDCM Patient Comments: DIABETES valsartan 320 MG tablet 320 mg PO DAILY Patient Comments: BLOOD PRESSURE albuterol sulfate 1 PUFF inhaler 2 puff INHALATION Q4H PRN PRN (Reason: Shortness Of Breath) Patient Comments: BREATHING clotrimazole 1 % Cream 1 applic TOPICAL BID PRN (Reason: feet) pantoprazole [Protonix] 40 mg tablet,delayed release (DR/EC) 40 mg PO DAILY Qty: 30 2RF ascorbic acid (vitamin C) 500 mg tablet 500 mg PO BID Qty: 60 0RF nifedipine 90 mg Tablet Extended Release 90 mg PO DAILY tramadol 50 mg Tablet 50 mg PO BID Mucinex DM 30-600 mg Tablet Extended Release 12 Hr 2 tab PO BID 7 Days Qty: 28 0RF mirtazapine 15 mg tablet 30 mg PO QHS cholecalciferol (vitamin D3) [Vitamin D3] 25 mcg (1,000 unit) capsule 25 mcg PO DAILY montelukast 10 mg tablet 10 mg PO QHS ferrous gluconate 324 mg (37.5 mg iron) tablet 324 mg PO BID metoprolol tartrate 25 mg tablet 12.5 mg PO BID sulfamethoxazole-trimethoprim [Bactrim DS] 800-160 mg tablet 1 tab PO BID Qty: 6 0RF amlodipine 5 mg tablet 5 mg PO DAILY Qty: 90 3RF Primary Care Provider: Leonel Orr Referrals: Leonel Orr MD [Primary Care Provider] - Print Language: Divehi
[2024-03-24 06:03] LABS: Absolute Neutrophil Count 6.3 X10^3/uL (2.0-7.7); Basophil# 0.02 X10^3/uL; Basophil% 0.3 % (0-1); Eosinophil# 0.07 X10^3/uL; Hematocrit 31.6 % (40-54); Hemoglobin 10.6 g/dL (13.0-16.5); Lymphocyte % 2.9 % (19-41); Mean Corp Hgb Conc 33.5 g/dL (32-36); Mean Corpuscular Hgb 32.1 pg (27.0-32.0); Mean Corpuscular Volume 95.8 fL (80-94); Mean Platelet Vol. 8.6 fl (6.2-12.0); Monocyte% 4.3 % (0-10); NRBC Flagged by Analyzer 0 % (0-5); Neutrophil % 91.1 % (47-70); POSITIVE DIFFERENTIAL YES; Platelet Count 204 K/mm3 (150-450); RBC Distribution Width CV 12.8 % (11.6-14.6); RBC Distribution Width SD 45.1 fl (35.1-43.9); White Blood Count 6.9 K/mm3 (4.4-11.0)
[2024-03-24 06:15] LABS: Prothrombin Time (Protime)PT. 13.6 SECONDS (11.7-14.9)
[2024-03-24 06:16] LABS: Partial Thromboplast Time 29.8 Seconds (24.1-36.2)
[2024-03-24 06:25] LABS: Anion Gap 8 (5-15); BUN 7 mg/dL (7-18); BUN/Creat Ratio 6.8 RATIO (10-20); Calcium,Total 9.8 mg/dL (8.5-10.1); Chloride 100 mmol/L (98-107); Creatinine, Serum 1.03 mg/dL (0.70-1.30); EST Glomerular Filtration Rate 75 mL/min (>60); Est Glom Filt Rate - Afr Amer 91 mL/min (>60); Estimated Creatinine Clearance 73.92 ml/min; Glucose 314 mg/dL (74-106); Potassium 3.1 mmol/L (3.5-5.1); Sodium Level 135 mmol/L (136-145); Troponin-I HS 14 pg/mL (3.0-78.0)
[2024-03-24] MEDS: Adenosine 6 MG/2 ML Syringe IV (06:26)
[2024-03-24] MEDS: 0.9% Normal Saline (500mL Bag) 500 ML 1000 ML IV (06:28)
[2024-03-24] MEDS: dilTIAZem 25 MG/5 ML Vial IV BOLUS (06:38)
[2024-03-24 06:41] LABS: Lactic Acid 1.7 mmol/L (0.4-1.9)
[2024-03-24] MEDS: Potassium Chloride Oral Tablet 20 MEQ 40 MEQ PO (07:36)
[2024-03-24 08:03] LABS: Magnesium 1.6 mg/dL (1.6-2.6)
[2024-03-24] MEDS: Diltiazem 125 MG in Dextrose 5%-Water (100mL Bag) 100 ML IV (08:39)
[2024-03-24] MEDS: dilTIAZem 25 MG/5 ML Vial 20 MG IV BOLUS (09:41)
--- NOTE | 2024-03-24 09:46 | NURSING ---
DR ZURI BERMUDEZ
--- NOTE | 2024-03-24 09:55 | NURSING ---
PCU ZURI [facility]
--- NOTE | 2024-03-24 10:21 | HP.PCM.HOS_ITS ---
HPI - General General Date of Admission: 03/24/24 Date of Service: 03/24/24 Chief Complaint: Palpitations HPI Narrative ESTEFANY PEPPER, is a 74 M with a history of paroxysmal atrial fibrillation presents with palpitations. Patient was just discharged on the with pneumonia and went home. There was some concern about his ability to manage on his own, but the states that he was actually doing pretty well with his rollator and with the oxygen. He had been doing well from the pneumonia standpoint as he does take oxygen at home though the notes that he does take it off periodically. He was not having shortness of breath but around 430 this morning he started having palpitations. Sent to the emergency room and was noted to have A-fib with RVR. Patient did receive bolus of diltiazem and started on drip but still remained tachycardic but down from 160s and 140s. Cardiology was contacted recommended giving him another bolus. The hospital service was then contacted for admission. Per the , it has been a year or 2 since he has had A-fib with RVR. He does have a history of a Watchman device so was not on anticoagulation. [facility] Medical History Presence of Watchman left atrial appendage closure device Transaminitis COPD with acute exacerbation Pneumonia Acute and chronic respiratory failure with hypoxia Diabetes GERD (gastroesophageal reflux disease) GI bleed Former smoker On home oxygen therapy Sleep apnea BiPAP (biphasic positive airway pressure) dependence Atrial fibrillation COPD exacerbation History of GI bleed Acute on chronic anemia Encounter for screening for COVID-19 History of short term memory loss Anemia COVID Suspected COVID-19 virus infection Acute and chronic respiratory failure with hypoxia Paroxysmal atrial fibrillation Atrial fibrillation and flutter Presence of stent in coronary artery (~05/01/18) Hydrocele, bilateral Dyspnea Pulmonary HTN CAD (coronary artery disease) Hypokalemia Lung nodule, multiple Alcoholism ELISHA (obstructive sleep apnea) Atherosclerotic heart disease of [place] coronary artery without angina pectoris Hyperlipemia Type 2 diabetes mellitus Essential hypertension COPD (chronic obstructive pulmonary disease) Home Medications ?Medication ?Instructions ?Recorded ?Last Taken ?Type albuterol sulfate 90 mcg/actuation 2 puff inhalation Q4H PRN PRN 06/24/15 07/22/22 History aerosol inhaler Shortness Of Breath atorvastatin 40 mg tablet 40 mg PO QHS Cholesterol 06/24/15 07/21/22 History metformin 1,000 mg tablet 1,000 mg PO BIDCM Diabetes 06/24/15 07/22/22 History valsartan 320 mg tablet 320 mg PO DAILY BP 06/24/15 07/22/22 History omega-3 fatty acids 1,000 mg 1,000 mg PO BID Heart health 04/14/18 07/22/22 History capsule (Fish Oil Concentrate) roflumilast 500 mcg tablet 500 mcg PO QPM COPD 04/14/18 07/21/22 History (Daliresp) tamsulosin 0.4 mg capsule 0.4 mg PO DAILY Prostate 04/14/18 07/21/22 History albuterol sulfate 2.5 mg/3 mL 2.5 mg inhalation 4X/DAY PRN Sob 10/15/18 07/22/22 History (0.083 %) solution for nebulization &/Or Wheezing torsemide 10 mg tablet 5 mg PO DAILY diuretic 10/15/18 07/22/22 History magnesium oxide 400 mg PO QHS supplement 10/25/20 07/21/22 History sertraline 50 mg tablet 50 mg PO DAILY mental health 08/01/21 07/22/22 History ascorbic acid (vitamin C) 500 mg 500 mg PO BID vitamin #60 tabs 11/27/21 07/22/22 Rx tablet clotrimazole 1 % topical cream 1 applic topical BID PRN feet 11/27/21 Unknown History pantoprazole 40 mg tablet,delayed 40 mg PO DAILY reflux #30 tabs 11/27/21 07/22/22 Rx release (Protonix) nifedipine 90 mg tablet,extended 90 mg PO DAILY blood pressure 03/15/22 07/22/22 History release tramadol 50 mg tablet 50 mg PO BID Pain 03/15/22 07/22/22 History acetaminophen 650 mg 1,300 mg PO Q12H pain 05/08/22 07/21/22 History tablet,extended release gabapentin 300 mg capsule 300 mg PO TID pain 05/08/22 07/22/22 History dextromethorphan-guaifenesin 30 2 tab PO BID secretions 7 days #28 07/27/22 Unknown Rx mg-600 mg tablet extended tabs [id number] hr (Mucinex DM) donepezil 5 mg tablet 5 mg PO QHS dementia 11/27/22 Unknown History aspirin 81 mg tablet,delayed 81 mg PO DAILY heart health 05/29/23 Unknown History release (Adult Low Dose Aspirin) budesonide 160 mcg-glycopyr 9 2 inh inhalation BID breathing 05/29/23 Unknown History mcg-formot 4.8 mcg/actuation HFA inhaler (Breztri Aerosphere) mirtazapine 15 mg tablet 30 mg PO QHS SLEEP 05/29/23 Unknown History cholecalciferol (vitamin D3) 25 25 mcg PO DAILY vitamin 07/08/23 Unknown History mcg (1,000 unit) capsule (Vitamin D3) montelukast 10 mg tablet 10 mg PO QHS allergies 07/08/23 Unknown History amlodipine 5 mg tablet 5 mg PO DAILY blood pressure #90 07/21/23 Unknown Rx tabs ferrous gluconate 324 mg (37.5 mg 324 mg PO BID supplement 11/27/23 Unknown History iron) tablet memantine 5 mg tablet 10 mg PO QPM dementia 11/27/23 Unknown History metoprolol tartrate 25 mg tablet 12.5 mg PO BID 03/19/24 Unknown History sulfamethoxazole 800 1 tab PO BID #6 tabs 03/23/24 Unknown Rx mg-trimethoprim 160 mg tablet (Bactrim DS) Allergy/AdvReac Type Severity Reaction Status Date / Time doxycycline Allergy Severe Rash Verified 03/24/24 05:41 empagliflozin (From AdvReac Severe yeast Verified 03/24/24 05:41 Jardiance) infection lisinopril AdvReac Intermediate Cough Verified 03/24/24 05:41 Family History Father COPD (chronic obstructive pulmonary disease) Heart disease Mother CAD (coronary artery disease) Myocardial infarction CVA (cerebral vascular accident) Diabetes Brother CAD (coronary artery disease) Pacemaker Diabetes History of coronary artery bypass surgery Brother Brain aneurysm Surgical History History of coronary artery stent placement History of left heart catheterization (LHC) (~02/06/21) Presence of coronary angioplasty implant and graft (~05/01/18) History of cardiac catheterization History of hip replacement Social History household members: spouse Smoking Status: Former smoker how long ago did patient quit smokin years ago, smoked since 14 years old. alcohol intake: former details: Quit in 1980 substance use type: does not use caffeine: Yes Type: coffee Number of servings: 2 ROS ROS Narrative All review of systems were negative except as mentioned above in the history of present illness and the other review of systems. Vital Signs Vital Signs Vital Signs: 03/24/24 05:37 03/24/24 05:40 03/24/24 06:00 Temperature 37.7 C H 37.7 C H Temperature Source Oral Oral Pulse Rate 151 H 151 H Respiratory Rate 19 H 24 H Respiratory Effort Short of Breath Respiratory Pattern Tachypnea Blood Pressure 156/128 H 133/67 H Blood Pressure Mean 137 89 Blood Pressure Source Blood Pressure Location Pulse Ox 90 92 Oxygen Delivery Method Nasal Cannula Nasal Cannula Oxygen Flow Rate (L/min) 3 3 03/24/24 06:40 03/24/24 06:41 03/24/24 06:50 Temperature 37.6 C H Temperature Source Oral Pulse Rate 150 H 152 H 151 H Respiratory Rate 17 17 19 H Respiratory Effort Respiratory Pattern Blood Pressure 159/88 H 145/78 H 145/78 H Blood Pressure Mean 111 100 100 Blood Pressure Source Blood Pressure Location Pulse Ox 94 93 94 Oxygen Delivery Method Nasal Cannula Nasal Cannula Nasal Cannula Oxygen Flow Rate (L/min) 4 4 4 03/24/24 07:00 03/24/24 07:00 03/24/24 08:00 Temperature 37.6 C H 37.3 C H Temperature Source Oral Oral Pulse Rate 152 H 152 H 150 H Respiratory Rate 17 17 16 Respiratory Effort Respiratory Pattern Blood Pressure 165/87 H 165/87 H 128/84 H Blood Pressure Mean 113 113 98 Blood Pressure Source Blood Pressure Location Pulse Ox 94 94 92 Oxygen Delivery Method Nasal Cannula Nasal Cannula Nasal Cannula Oxygen Flow Rate (L/min) 4.5 4.5 4.5 03/24/24 08:00 03/24/24 08:39 03/24/24 09:00 Temperature 37.3 C H 37.3 C H Temperature Source Oral Oral Pulse Rate 150 H 151 H 151 H Respiratory Rate 16 16 15 Respiratory Effort Respiratory Pattern Blood Pressure 128/84 H 151/85 H 140/123 H Blood Pressure Mean 98 107 128 Blood Pressure Source Monitor Blood Pressure Location Left Arm Pulse Ox 92 92 92 Oxygen Delivery Method Nasal Cannula Nasal Cannula Nasal Cannula Oxygen Flow Rate (L/min) 4.5 4.5 4.5 03/24/24 09:00 03/24/24 09:14 03/24/24 09:58 Temperature 37.3 C H 37.3 C H Temperature Source Oral Oral Pulse Rate 150 H 151 H 152 H Respiratory Rate 16 18 14 Respiratory Effort Respiratory Pattern Blood Pressure 140/123 H 147/85 H 116/75 Blood Pressure Mean 128 105 88 Blood Pressure Source Monitor Blood Pressure Location Left Arm Pulse Ox 93 93 94 Oxygen Delivery Method Nasal Cannula Nasal Cannula Nasal Cannula Oxygen Flow Rate (L/min) 4.5 4.5 4.5 03/24/24 09:58 03/24/24 10:00 Temperature 37.3 C H 37.3 C H Temperature Source Oral Pulse Rate 152 H 152 H Respiratory Rate 14 14 Respiratory Effort Respiratory Pattern Blood Pressure 116/75 116/75 Blood Pressure Mean 88 88 Blood Pressure Source Blood Pressure Location Pulse Ox 94 94 Oxygen Delivery Method Nasal Cannula Oxygen Flow Rate (L/min) 4 Weight Weight: 102.4 kg Body Mass Index (BMI) 35.3 Physical Exam Narrative - Physical Exam General: Alert, Oriented x3, Cooperative HEENT: Atraumatic, PERRLA, EOMI, Normocephalic Oral: Moist Mucosa, No Gingival or Mucosal Lesions/ Ulcerations Neck: Supple, No JVD, Negative Carotid Bruits Lungs: Clear to auscultation, Normal air movement Cardiovascular: Irregularly irregular. Abdomen: Bowel Sounds Present, Soft, Non Tender, Non-Distended, No Hepato- splenomegaly Extremities: No clubbing, No cyanosis, No edema, Capillary Refill Less than 3 Seconds Skin: No rashes, No breakdown Musculoskeletal: No Tenderness to Palpation of Joints or Extremities Neurological: Neuro grossly intact Psych/Mental Status: Normal Affect, Appropriate Results Lab / Micro Data Attestation: I reviewed the patient's lab results. 03/24/24 05:55 03/24/24 05:55 Labs: Laboratory Results - last 24 hr 03/24/24 05:55: WBC 6.9, RBC 3.30 L, Hgb 10.6 L, Hct 31.6 L, MCV 95.8 H, MCH 32.1 H, MCHC 33.5, RDW Std Deviation 45.1 H, RDW Coeff of Anthony 12.8, Plt Count 204, MPV 8.6, Immature Gran % (Auto) 0.400, Neut % (Auto) 91.1 H, Lymph % (Auto) 2.9 L, [place] % (Auto) 4.3, Eos % (Auto) 1.0, Baso % (Auto) 0.3, Absolute Neuts (auto) 6.3, Absolute Lymphs (auto) 0.20 L, Nucleated RBC % 0, PT 13.6, INR 1.0, APTT 29.8, Sodium 135 L, Potassium 3.1 L, Chloride 100, Carbon Dioxide 27.0, Anion Gap 8, BUN 7, Creatinine 1.03, Estim Creat Clear Calc 73.92, Est GFR (MDRD) Af Amer 91, Est GFR (MDRD) Non-Af 75, BUN/Creatinine Ratio 6.8 L, Glucose 314 H, Calcium 9.8, Magnesium 1.6, Troponin I High Sens 14 03/24/24 06:05: Lactic Acid 1.7 EKG Initial EKG: Attestation: I personally reviewed and interpreted this EKG as follows: Prior EKG tracings: available for review EKG Rhythm Intrepretation: Atrial Fibrillation (With RVR) Imaging Radiology Impression Chest X-Ray 03/24/24 05:50 IMPRESSION: Persistent lingular infiltrate. Suspect early right upper lobe infiltrate. Electronically Signed: Joes Alfredo Neumann MD at 7:18 EDT Reading Location ID and State: [facility] / [place] , Service support , Assessment & Plan Assessment/Plan (1) Atrial flutter with rapid ventricular response: PLAN: Patient has received bolus of diltiazem as well as diltiazem drip. Patient to receive another bolus. Patient be mated to the progressive care unit and have his heart rate monitored. Cardiology will be consulted for further recommendations for his atrial fibrillation. Will recheck an echocardiogram as not been since June since his last available in our system. Patient is status post Watchman procedure so therapeutic anticoagulation not indicated at this time. Will hold his oral metoprolol for now. Of note, patient was sinus rhythm or sinus bradycardia while he was in the hospital just recently. PLAN: Plan Recent pneumonia: Will continue with the Bactrim until completion. Patient seems to be doing well from that perspective. Chronic conditions * COPD with chronic hypoxic respiratory failure 2-3L NC with allergic rhinitis: Patient is being managed on scheduled bronchodilator, IV Solu-Medrol, Mucinex, incentive spirometry and Pep. On Daliresp continued from home medication. * CAD: Status post PCI RCA 2017, most recent cardiology visit noted 11/27/23, continue aspirin, statin, valsartan, not on beta-jd therapy potentially secondary to underlying COPD. * Chronic anemia/iron deficiency anemia: * Dementia, unclear type with unclear behavioral disturbance history: Continue memantine and donepezil regimen * Chronic Kidney Disease Stage II per GFR trending: Admission BUN/Cr 13/1.28, GFR 59 although primarily from review is consistent with stage II, baseline renal function 0.9-1.2, repeat BMP in AM. 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 A1c ordered for tomorrow AM. Accu-Chek before meals and at bedtime with Humalog sliding scale coverage and hypoglycemia protocol. * Hypertension: Continue home regimen including valsartan, torsemide, nifedipine, amlodipine, PRN hydralazine. * Multiple other comorbidities include dyslipidemia, BPH, GERD, obstructive sleep apnea on BiPAP, psoriasis: Home medications reconciliation done * Hyperlipidemia: continue patient on statin therapy. VTE prophylaxis with enoxaparin CODE STATUS: Addressed with the patient and his . Patient is to be DNR Comfort Care arrest no intubation. Charges/Coding Visit Charges Inpatient E&M: 47441 Init Hosp L3
--- NOTE | 2024-03-24 10:27 | ED.RN ---
PT TITRATED TO MAX DOSE ON CARDIZEM. DR BERMUDEZ AWARE. NO FURTHER ORDERS AT THIS TIME.
--- NOTE | 2024-03-24 10:46 | ECHOD_ITS ---
Reason For Study: Afib/Flutter Procedure This was a 2D Doppler, Color Flow transthoracic echocardiogram. Myocardial strain analysis was performed in this exam to aid in the assessment of cardiac function. Exam performed portable in patient room. Left Ventricle Normal LV size. The left ventricular ejection fraction is 50 %. Stage 1 diastolic dysfunction. No regional wall motion abnormalities noted. Right Ventricle Normal RV size. Normal systolic function. Atria Normal left atrium. Mitral Valve Normal mitral valve. Tricuspid Valve Normal tricuspid valve. Mild to moderate (1-2+) tricuspid valve insufficiency. Pulmonary artery systolic pressure is 46 mmHg. Mild pulmonary hypertension. Aortic Valve Trisinus/trileaflet aortic valve. Pulmonic Valve Normal pulmonic valve. Great Vessels Normal aortic root. Pericardium/Pleural No pericardial effusion. MMode/2D Measurements & Calculations LVIDd: 4.6 cm IVSd: 1.2 cm LVOT diam: 2.0 cm LVIDs: 3.9 cm LVPWd: 1.1 cm LVOT area: 3.1 cm2 RVDd: 3.6 cm FS: 15.3 % LA dimension: 4.8 cm LAV(MOD-bp): 70.2 ml LVAd ap4: 24.3 cm2 LAV(MOD-bp) Indexed: 33.0 ml/m2 LVLd ap4: 7.6 cm LAV(MOD-sp2): 68.7 ml EDV(MOD-sp4): 67.2 ml LAV(MOD-sp4): 66.2 ml EDV(sp4-el): 65.9 ml LVAs ap4: 15.6 cm2 LVLs ap4: 6.6 cm ESV(MOD-sp4): 33.4 ml ESV(sp4-el): 31.2 ml EF(MOD-sp4): 50.2 % EF(sp4-el): 52.6 % SV(MOD-sp4): 33.7 ml SV(sp4-el): 34.7 ml Ao sinus diam: 3.[address] Junction: 3.1 cm LA dimension(2D): 4.6 cm LA A4 area: 22.2 cm2 RA A4 area: 15.9 cm2 TAPSE: 1.5 cm Time Measurements MV dec time: 0.07 sec Doppler Measurements & Calculations MV E max trip: 54.6 cm/sec Lat Peak E' Trip: 5.4 cm/sec Med Peak E' Trip: 7.8 cm/sec MV A max trip: 114.2 cm/sec E/E' lat: 10.1 E/E' med: 7.0 MV E/A: 0.48 MV V2 max: 144.9 cm/sec Ao V2 max: 158.7 cm/sec MV max P.5 mmHg MV dec slope: 733.3 cm/sec2 Ao max P.1 mmHg MV V2 mean: 77.8 cm/sec MV mean P.2 mmHg PEG(V,D): 2.4 cm2 MV V2 VTI: 16.0 cm LV V1 max: 121.2 cm/sec PA V2 max: 105.4 cm/sec TR max trip: 323.5 cm/sec LV V1 max P.9 mmHg PA max PG (full): 0.49 mmHg TR max P.9 mmHg ECHO/Echo Complete Interpretation Summary Normal LV size. The left ventricular ejection fraction is 50 %. Stage 1 diastolic dysfunction. Pulmonary artery systolic pressure is 46 mmHg. Mild pulmonary hypertension. Apical sparing pattern noted for myocardial perfusion strain. The global longit udinal strain is severely abnormal. Ordering Physician: Yong Olivo Performed By: Brian Darnell RCS
[2024-03-24 11:30] LABS: Thyroid Stim Hormone (TSH) 0.964 uIU/mL (0.358-3.740)
[2024-03-24 11:43] LABS: Bedside Glucose 257 mg/dL (74-106)
[2024-03-24] MEDS: FLU VACCINE **HIGH DOSE** TV 24-25 180 MCG/0.5 ML SYRINGE IM (12:13)
[2024-03-24] MEDS: Acetaminophen 500 MG Tablet 1000 MG PO ×2 (12:13→22:41)
[2024-03-24] MEDS: Insulin Lispro 100 UNIT/ML INSULN.PEN SC ×2 (12:14→16:47)
[2024-03-24] MEDS: Amiodarone 150 MG in Dextrose 5%-Water (100mL Bag) 100 ML 600 MG IV BOLUS (12:53)
[2024-03-24] MEDS: 0.9% Saline Lock 10 ML Syringe IV (12:55)
[2024-03-24] MEDS: Gabapentin 300 MG Capsule PO ×2 (13:05→20:15)
[2024-03-24] MEDS: Amiodarone 360 MG in Dextrose 5% Viaflo Bag 192.8 ML 33.3 MG CONT INF (13:06)
[2024-03-24] MEDS: Ipratropium/Albuterol Sulfate 3 ML AMPUL.NEB INHALATION (15:16)
[2024-03-24] MEDS: Smz/Tmp Ds Tablet 1 TABLET PO (16:48)
[2024-03-24] MEDS: Ferrous Gluconate 324 MG Tablet PO (16:48)
[2024-03-24] MEDS: metFORMIN HCl 1,000 MG Tablet 1000 MG PO (16:48)
[2024-03-24 17:09] LABS: Bedside Glucose 309 mg/dL (74-106)
[2024-03-24] MEDS: Diltiazem 125 MG in Dextrose 5%-Water (100mL Bag) 100 ML 15 MG IV (17:49)
[2024-03-24] MEDS: Amiodarone 360 MG in Dextrose 5% Viaflo Bag 192.8 ML 16.7 MG CONT INF (18:47)
[2024-03-24 20:13] LABS: Bedside Glucose 262 mg/dL (74-106)
[2024-03-24] MEDS: Montelukast 10 MG Tablet PO (20:14)
[2024-03-24] MEDS: guaiFENesin/D-Methorphan TAB.SR.12H 2 TABLET PO (20:14)
[2024-03-24] MEDS: Nystatin Powder 15gm Bottle 1 APPLIC TOPICAL (20:14)
[2024-03-24] MEDS: Magnesium Chloride 64 MG Delay Rel.Tablet 128 MG PO (20:14)
[2024-03-24] MEDS: Donepezil HCl 5 MG Tablet PO (20:15)
[2024-03-24] MEDS: Atorvastatin Calcium 40 MG Tablet PO (20:15)
[2024-03-24] MEDS: traMADol 50 MG Tablet PO (20:15)
[2024-03-24] MEDS: Mirtazapine 30 MG Tablet PO (20:15)
[2024-03-24] MEDS: Memantine Hydrochloride 10 MG Tablet PO (20:15)
[2024-03-24] MEDS: Ascorbic Acid 500 MG Tablet PO (20:15)
--- NOTE | 2024-03-24 21:36 | CON.PCM.CA_ITS ---
Assessment & Plan Assessment/Plan (1) Atrial flutter with rapid ventricular response: PLAN: Patient presents with atrial flutter with a rapid ventricular response rate. He has been started on intravenous diltiazem and amiodarone for better rate control. His echocardiogram demonstrated borderline ejection fraction. It is not clear to me why he had a Watchman device placed but I will recommend that he be anticoagulated nonetheless. (2) Presence of stent in coronary artery: PLAN: Does have a history of coronary artery disease status post angioplasty and stenting. His troponin however remains normal and I would not recommend we make any changes. (3) Essential hypertension: PLAN: His blood pressure appears to be under decent control and no new recommendations to be made with regard to the above. His echocardiogram demonstrated apical sparing pattern and emboli cannot be completely excluded. Further testing for this can be performed on an outpatient basis. Thank you for allowing me to participate in the care of your patient. Please don't hesitate to call if any issues arise. HPI Consult Data Date of Consult: 03/25/24 HPI Narrative HPI Narrative: ESTEFANY PEPPER, is a 74 M who presents to the emergency room after being recently discharged from the hospital the day prior with pneumonia. He presents with shortness of breath and palpitations and an EKG done demonstrated a rapid ventricular response rate of approximately 150 bpm. The patient was administered intravenous diltiazem but patient remained tachycardic. Cardiology was called for further evaluation and management. On review of the EKG strips it appeared that the patient was in an atrial flutter with a 2-1 conduction. History is difficult to obtain. Patient was started on intravenous diltiazem and subsequently amiodarone with improvement in the heart rate. He denies any dizziness or diaphoresis no near syncope or chest pain. He has a history of coronary artery disease with stenting to his RCA in 2018, PAF/flutter, hyperlipidemia, hypertension, pulmonary hypertension, COPD and obstructive sleep apnea. He has also had a Watchman device placed. From a cardiac standpoint, the patient is doing well. He denies any palpitations, chest pain, pressure or heaviness. He does acknowledge SOB with exertion. This is nothing new or worsening. He does wear oxygen 2L via NC. He denies Orthopnea, and PND. He does not have bleeding issues; no blood in urine, stool or nosebleeds. He denies any decrease in energy level, myalgias, or claudication. He does not have edema, or sudden weight gain. He denies dizziness, lightheadedness, syncopal or near syncopal episodes, and headaches. [facility] Medical History (Updated 03/24/24 @ 21:[address] Gustavo Llamas MD) Presence of stent in coronary artery (~05/01/18) Essential hypertension Presence of Watchman left atrial appendage closure device Transaminitis COPD with acute exacerbation Pneumonia Acute and chronic respiratory failure with hypoxia Diabetes GERD (gastroesophageal reflux disease) GI bleed Former smoker On home oxygen therapy Sleep apnea BiPAP (biphasic positive airway pressure) dependence Atrial fibrillation COPD exacerbation History of GI bleed Acute on chronic anemia Encounter for screening for COVID-19 History of short term memory loss Anemia COVID Suspected COVID-19 virus infection Acute and chronic respiratory failure with hypoxia Paroxysmal atrial fibrillation Atrial fibrillation and flutter Hydrocele, bilateral Dyspnea Pulmonary HTN CAD (coronary artery disease) Hypokalemia Lung nodule, multiple Alcoholism ELISHA (obstructive sleep apnea) Atherosclerotic heart disease of inupiat coronary artery without angina pectoris Hyperlipemia Type 2 diabetes mellitus COPD (chronic obstructive pulmonary disease) Home Medications ?Medication ?Instructions ?Recorded ?Last Taken ?Type albuterol sulfate 90 mcg/actuation 2 puff inhalation Q4H PRN PRN 06/24/15 07/22/22 History aerosol inhaler Shortness Of Breath atorvastatin 40 mg tablet 40 mg PO QHS Cholesterol 06/24/15 03/23/24 History metformin 1,000 mg tablet 1,000 mg PO BIDCM Diabetes 06/24/15 03/23/24 History valsartan 320 mg tablet 320 mg PO DAILY BP 06/24/15 07/22/22 History omega-3 fatty acids 1,000 mg 1,000 mg PO BID Heart health 04/14/18 03/23/24 History capsule (Fish Oil Concentrate) roflumilast 500 mcg tablet 500 mcg PO QPM COPD 04/14/18 03/23/24 History (Daliresp) tamsulosin 0.4 mg capsule 0.4 mg PO DAILY Prostate 04/14/18 03/23/24 History albuterol sulfate 2.5 mg/3 mL 2.5 mg inhalation 4X/DAY PRN Sob 10/15/18 07/22/22 History (0.083 %) solution for nebulization &/Or Wheezing torsemide 10 mg tablet 5 mg PO DAILY diuretic 10/15/18 03/23/24 History magnesium oxide 400 mg PO QHS supplement 10/25/20 03/23/24 History sertraline 50 mg tablet 50 mg PO DAILY mental health 08/01/21 03/23/24 History ascorbic acid (vitamin C) 500 mg 500 mg PO BID vitamin #60 tabs 11/27/21 03/23/24 Rx tablet clotrimazole 1 % topical cream 1 applic topical BID PRN feet 11/27/21 Unknown History pantoprazole 40 mg tablet,delayed 40 mg PO DAILY reflux #30 tabs 11/27/21 03/23/24 Rx release (Protonix) nifedipine 90 mg tablet,extended 90 mg PO DAILY blood pressure 03/15/22 03/23/24 History release tramadol 50 mg tablet 50 mg PO BID Pain 03/15/22 03/23/24 History acetaminophen 650 mg 1,300 mg PO Q12H pain 05/08/22 03/23/24 History tablet,extended release gabapentin 300 mg capsule 300 mg PO TID pain 05/08/22 03/23/24 History dextromethorphan-guaifenesin 30 2 tab PO BID secretions 7 days #28 07/27/22 03/23/24 Rx mg-600 mg tablet extended tabs [id number] hr (Mucinex DM) donepezil 5 mg tablet 5 mg PO QHS dementia 11/27/22 03/23/24 History aspirin 81 mg tablet,delayed 81 mg PO DAILY heart health 05/29/23 03/23/24 History release (Adult Low Dose Aspirin) budesonide 160 mcg-glycopyr 9 2 inh inhalation BID breathing 05/29/23 Unknown History mcg-formot 4.8 mcg/actuation HFA inhaler (Breztri Aerosphere) mirtazapine 15 mg tablet 30 mg PO QHS SLEEP 05/29/23 03/23/24 History cholecalciferol (vitamin D3) 25 25 mcg PO DAILY vitamin 07/08/23 03/23/24 History mcg (1,000 unit) capsule (Vitamin D3) montelukast 10 mg tablet 10 mg PO QHS allergies 07/08/23 03/23/24 History amlodipine 5 mg tablet 5 mg PO DAILY blood pressure #90 07/21/23 03/23/24 Rx tabs ferrous gluconate 324 mg (37.5 mg 324 mg PO BID supplement 11/27/23 03/23/24 History iron) tablet memantine 5 mg tablet 10 mg PO QPM dementia 11/27/23 03/23/24 History metoprolol tartrate 25 mg tablet 12.5 mg PO BID 03/19/24 Unknown History sulfamethoxazole 800 1 tab PO BID #6 tabs 03/23/24 03/23/24 Rx mg-trimethoprim 160 mg tablet (Bactrim DS) Allergy/AdvReac Type Severity Reaction Status Date / Time doxycycline Allergy Severe Rash Verified 03/24/24 05:41 empagliflozin (From AdvReac Severe yeast Verified 03/24/24 05:41 Jardiance) infection lisinopril AdvReac Intermediate Cough Verified 03/24/24 05:41 Family History Father COPD (chronic obstructive pulmonary disease) Heart disease Mother CAD (coronary artery disease) Myocardial infarction CVA (cerebral vascular accident) Diabetes Brother CAD (coronary artery disease) Pacemaker Diabetes History of coronary artery bypass surgery Brother Brain aneurysm Surgical History History of coronary artery stent placement History of left heart catheterization (LHC) (~02/06/21) Presence of coronary angioplasty implant and graft (~05/01/18) History of cardiac catheterization History of hip replacement Social History household members: spouse Smoking Status: Former smoker how long ago did patient quit smokin years ago, smoked since 14 years old. alcohol intake: former details: Quit in 1980 substance use type: does not use caffeine: Yes Type: coffee Number of servings: 2 Physical Exam Const alert, oriented x3 and no apparent distress General Appearance: cooperative HEENT hearing grossly normal bilaterally Head and Scalp: atraumatic Eyes EOMs intact bilaterally Neck General: normal visual inspection Chest inspection of chest normal and palpation of chest normal Resp normal respiratory effort Auscultation: clear to auscultation bilaterally Cardio regular rate, regular rhythm, S1 normal heart sound and S2 normal heart sound Jugular Venous Distention: JVD Rhythm: abnormal rhythm irregularly irregular GI normal to inspection, nondistended, normoactive bowel sounds Extremity normal capillary refill and no pedal edema Peripheral Pulses: Yes pulses 2+ throughout and femoral pulses present Skin no rashes or lesions noted Neuro oriented x3 and CN's II-XII intact bilaterally Psych Appearance: grossly normal and appropriate Risk Stratification Risk Stratification Applicable: No Objective Data Vital Signs: Vital Signs Temp Pulse Resp BP Pulse Ox O2 Del Method O2 Flow Rate 98.3 F 142 H 12 132/76 H 95 Nasal Cannula 2 03/24/24 16:00 03/24/24 19:00 03/24/24 19:00 03/24/24 19:00 03/24/24 19:00 03/24/24 19:20 03/24/24 19:20 Oxygen Flow Rate (L/min) 2 Oxygen Delivery Method Nasal Cannula Weight: 217 lb 13.067 oz Body Mass Index (BMI) 34.1 Intake & Output: Intake and Output for Last 24 Hours 03/22/24 03/23/24 03/24/24 23:59 23:59 23:59 Intake Total 999.76 / 999.76 Balance 999.76 / 999.76 Lab / Micro Data 03/25/24 06:03 03/24/24 05:55 Labs: Laboratory Results - last 24 hr 03/24/24 05:55: WBC 6.9, RBC 3.30 L, Hgb 10.6 L, Hct 31.6 L, MCV 95.8 H, MCH 32.1 H, MCHC 33.5, RDW Std Deviation 45.1 H, RDW Coeff of Anthony 12.8, Plt Count 204, MPV 8.6, Immature Gran % (Auto) 0.400, Neut % (Auto) 91.1 H, Lymph % (Auto) 2.9 L, [place] % (Auto) 4.3, Eos % (Auto) 1.0, Baso % (Auto) 0.3, Absolute Neuts (auto) 6.3, Absolute Lymphs (auto) 0.20 L, Nucleated RBC % 0, PT 13.6, INR 1.0, APTT 29.8, Sodium 135 L, Potassium 3.1 L, Chloride 100, Carbon Dioxide 27.0, Anion Gap 8, BUN 7, Creatinine 1.03, Estim Creat Clear Calc 73.92, Est GFR (MDRD) Af Amer 91, Est GFR (MDRD) Non-Af 75, BUN/Creatinine Ratio 6.8 L, Glucose 314 H, Calcium 9.8, Magnesium 1.6, Troponin I High Sens 14, TSH 0.964 03/24/24 06:05: Lactic Acid 1.7 03/24/24 11:26: POC Glucose 257 H 03/24/24 16:46: POC Glucose 309 H 03/24/24 19:55: POC Glucose 262 H Cardiology Labs/Tests 03/24/24 05:55: WBC 6.9, RBC 3.30 L, Hgb 10.6 L, Hct 31.6 L, MCV 95.8 H, MCH 32.1 H, MCHC 33.5, Plt Count 204, MPV 8.6, Immature Gran % (Auto) 0.400, Neut % (Auto) 91.1 H, Lymph % (Auto) 2.9 L, [place] % (Auto) 4.3, Eos % (Auto) 1.0, Baso % (Auto) 0.3, Absolute Neuts (auto) 6.3, Nucleated RBC % 0, PT 13.6, INR 1.0, APTT 29.8, Sodium 135 L, Potassium 3.1 L, Chloride 100, Carbon Dioxide 27.0, Anion Gap 8, BUN 7, Creatinine 1.03, Est GFR (MDRD) Af Amer 91, Est GFR (MDRD) Non-Af 75, BUN/Creatinine Ratio 6.8 L, Glucose 314 H, Calcium 9.8, Magnesium 1.6 03/24/24 06:05: Lactic Acid 1.7 Rhythm: EKG: ECHO: Stress Test: Cardiac Cath: PCI: CT Surgery: Holter monitor: EPS: PPM: CXR: Chest CT Scan: Radiography Diagnostic Testing: Radiology Impression Chest X-Ray 03/24/24 05:50 IMPRESSION: Persistent lingular infiltrate. Suspect early right upper lobe infiltrate. Electronically Signed: Jose Alfredo Neumann MD at 7:18 EDT , Echocardiogram 03/24/24 10:46 Interpretation Summary Normal LV size. The left ventricular ejection fraction is 50 %. Stage 1 diastolic dysfunction. Pulmonary artery systolic pressure is 46 mmHg. Mild pulmonary hypertension. Apical sparing pattern noted for myocardial perfusion strain. The global longitudinal strain is severely abnormal. Ordering Physician: Yong Olivo Performed By: Brian Darnell RCS
[2024-03-24] MEDS: APIXABAN 5 MG TABLET PO (22:41)
[2024-03-25] VITALS (26 sets, daily range): BP systolic 92–141; BP diastolic 51–94; PULSE 51–148; RESP 12–21; TEMP 36.1–36.6; O2SAT 86–95
[2024-03-25] MEDS: Diltiazem 125 MG in Dextrose 5%-Water (100mL Bag) 100 ML 15 MG IV (02:07)
[2024-03-25] MEDS: Gabapentin 300 MG Capsule PO ×2 (05:18→13:54)
[2024-03-25] MEDS: Insulin Lispro 100 UNIT/ML INSULN.PEN SC ×3 (06:06→16:56)
[2024-03-25] MEDS: Amiodarone 360 MG in Dextrose 5% Viaflo Bag 192.8 ML 16.7 MG CONT INF (06:07)
[2024-03-25 06:27] LABS: Absolute Lymphocyte Count 0.47 X10^3/uL (0.83-4.51); Absolute Neutrophil Count 6.9 X10^3/uL (2.0-7.7); Basophil# 0.04 X10^3/uL; Basophil% 0.5 % (0-1); Eosinophil# 0.19 X10^3/uL; Eosinophils% 2.4 % (0-5); Hematocrit 30.9 % (40-54); Hemoglobin 10.1 g/dL (13.0-16.5); Lymphocyte # 0.47 X10^3/ul (0.83-4.51); Lymphocyte % 5.8 % (19-41); Mean Corp Hgb Conc 32.7 g/dL (32-36); Mean Corpuscular Hgb 31.7 pg (27.0-32.0); Mean Corpuscular Volume 96.9 fL (80-94); Mean Platelet Vol. 9.2 fl (6.2-12.0); Monocyte# 0.41 X10^3/uL; Monocyte% 5.1 % (0-10); NRBC Flagged by Analyzer 0 % (0-5); Neutrophil # 6.92 X10^3/uL (2.7-7.7); Neutrophil % 85.8 % (47-70); POSITIVE DIFFERENTIAL YES; Platelet Count 196 K/mm3 (150-450); RBC Distribution Width CV 12.8 % (11.6-14.6); RBC Distribution Width SD 45.2 fl (35.1-43.9); Red Blood Count 3.19 M/mm3 (4.6-6.2); White Blood Count 8.1 K/mm3 (4.4-11.0)
[2024-03-25 06:31] LABS: Bedside Glucose 268 mg/dL (74-106)
--- NOTE | 2024-03-25 08:01 | PN.HOSP_ITS ---
Reason for Visit Reason for Visit: Diagnoses Unspecified atrial flutter (03/24/24) Subjective Subjective Feels well. Objective Data Objective Data Vital Signs: Vital Signs Temp Pulse Resp BP Pulse Ox O2 Del Method O2 Flow Rate 36.1 C L 138 H 13 92/79 90 CPAP 6 03/25/24 05:00 03/25/24 07:00 03/25/24 07:00 03/25/24 07:00 03/25/24 07:00 03/25/24 07:00 03/25/24 07:00 Oxygen Flow Rate (L/min) 6 Oxygen Delivery Method CPAP Weight: 98.8 kg Body Mass Index (BMI) 34.1 Intake & Output: Intake and Output for Last 24 Hours 03/23/24 03/24/24 03/25/24 23:59 23:59 23:59 Intake Total 1059.76 / 1059.76 305.65 / 305.65 Output Total 400 / 400 425 / 425 Balance 659.76 / 659.76 -119.35 / -119.35 Lab / Micro Data 03/25/24 06:03 03/25/24 10:45 Labs: Laboratory Results - last 24 hr 03/24/24 05:55: Magnesium 1.6, TSH 0.964 03/24/24 11:26: POC Glucose 257 H 03/24/24 16:46: POC Glucose 309 H 03/24/24 19:55: POC Glucose 262 H 03/25/24 06:03: WBC 8.1, RBC 3.19 L, Hgb 10.1 L, Hct 30.9 L, MCV 96.9 H, MCH 31.7, MCHC 32.7, RDW Std Deviation 45.2 H, RDW Coeff of Anthony 12.8, Plt Count 196, MPV 9.2, Immature Gran % (Auto) 0.400, Neut % (Auto) 85.8 H, Lymph % (Auto) 5.8 L, [place] % (Auto) 5.1, Eos % (Auto) 2.4, Baso % (Auto) 0.5, Absolute Neuts (auto) 6.9, Absolute Lymphs (auto) 0.47 L, Nucleated RBC % 0 03/25/24 06:05: POC Glucose 268 H Radiography Diagnostic Testing: Radiology Impression Echocardiogram 03/24/24 10:46 Interpretation Summary Normal LV size. The left ventricular ejection fraction is 50 %. Stage 1 diastolic dysfunction. Pulmonary artery systolic pressure is 46 mmHg. Mild pulmonary hypertension. Apical sparing pattern noted for myocardial perfusion strain. The global longitudinal strain is severely abnormal. Ordering Physician: Yong Olivo Performed By: Brian Darnell RCS Physical Exam Const alert and no apparent distress HEENT head/scalp atraumatic and moist oral mucous membranes Resp normal respiratory effort, no retractions, no use of accessory muscles and clear to auscultation bilaterally Cardio regular rate, regular rhythm, S1 normal heart sound and S2 normal heart sound GI normal to inspection, nondistended, normoactive bowel sounds, soft to palpation, non-tender and non-distended Neuro Sensorium / Orientation: awake and alert Assessment & Plan Assessment/Plan (1) Atrial flutter with rapid ventricular response: PLAN: Patient was refractory to the diltiazem and has subsequently been ordered amiodarone bolus and drip. Also restarted on metoprolol but at increased dose of 50 mg twice a day (previously had been on 12.5 twice daily) Cardiology recommending anticoagulation. Patient received a dose of apixaban. TSH within normal limits Patient converted this morning. Currently on metoprolol titrate 50 mg twice daily. PLAN: Plan Recent pneumonia: Will continue with the Bactrim until completion. Patient seems to be doing well from that perspective. Chronic conditions * COPD with chronic hypoxic respiratory failure 2-3L NC with allergic rhinitis: Patient is being managed on scheduled bronchodilator, IV Solu-Medrol, Mucinex, incentive spirometry and Pep. On Daliresp continued from home medication. * CAD: Status post PCI RCA 2017, most recent cardiology visit noted 11/27/23, continue aspirin, statin, valsartan, not on beta-jd therapy potentially secondary to underlying COPD. * Chronic anemia/iron deficiency anemia: * Dementia, unclear type with unclear behavioral disturbance history: Continue memantine and donepezil regimen * Chronic Kidney Disease Stage II per GFR trending: Admission BUN/Cr 13/1.28, GFR 59 although primarily from review is consistent with stage II, baseline renal function 0.9-1.2, repeat BMP in AM. 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 A1c ordered for tomorrow AM. Accu-Chek before meals and at bedtime with Humalog sliding scale coverage and hypoglycemia protocol. * Hypertension: Continue home regimen including valsartan, torsemide, nifedipine, amlodipine, PRN hydralazine. * Multiple other comorbidities include dyslipidemia, BPH, GERD, obstructive sleep apnea on BiPAP, psoriasis: Home medications reconciliation done * Hyperlipidemia: continue patient on statin therapy. VTE prophylaxis with enoxaparin CODE STATUS: Addressed with the patient and his . Patient is to be DNR Comfort Care arrest no intubation. Charges/Coding Visit Charges Inpatient E&M: 50895 Subs Hosp L2
--- NOTE | 2024-03-25 08:05 | PN.CARD_ITS ---
Subjective Subjective Patient seen and evaluated. Still with uncontrolled ventricular response rate on amiodarone and diltiazem. Objective Data Vital Signs: Vital Signs Temp Pulse Resp BP Pulse Ox O2 Del Method O2 Flow Rate 97.0 F L 138 H 13 92/79 90 CPAP 6 03/25/24 05:00 03/25/24 07:00 03/25/24 07:00 03/25/24 07:00 03/25/24 07:00 03/25/24 07:00 03/25/24 07:00 Oxygen Flow Rate (L/min) 6 Oxygen Delivery Method CPAP Weight: 217 lb 13.067 oz Body Mass Index (BMI) 34.1 Intake & Output: Intake and Output for Last 24 Hours 03/23/24 03/24/24 03/25/24 23:59 23:59 23:59 Intake Total 1059.76 / 1059.76 305.65 / 305.65 Output Total 400 / 400 425 / 425 Balance 659.76 / 659.76 -119.35 / -119.35 Lab / Micro Data 03/25/24 06:03 03/24/24 05:55 Labs: Laboratory Results - last 24 hr 03/24/24 05:55: TSH 0.964 03/24/24 11:26: POC Glucose 257 H 03/24/24 16:46: POC Glucose 309 H 03/24/24 19:55: POC Glucose 262 H 03/25/24 06:03: WBC 8.1, RBC 3.19 L, Hgb 10.1 L, Hct 30.9 L, MCV 96.9 H, MCH 31.7, MCHC 32.7, RDW Std Deviation 45.2 H, RDW Coeff of Anthony 12.8, Plt Count 196, MPV 9.2, Immature Gran % (Auto) 0.400, Neut % (Auto) 85.8 H, Lymph % (Auto) 5.8 L, [place] % (Auto) 5.1, Eos % (Auto) 2.4, Baso % (Auto) 0.5, Absolute Neuts (auto) 6.9, Absolute Lymphs (auto) 0.47 L, Nucleated RBC % 0 03/25/24 06:05: POC Glucose 268 H Cardiology Labs/Tests 03/25/24 06:03: WBC 8.1, RBC 3.19 L, Hgb 10.1 L, Hct 30.9 L, MCV 96.9 H, MCH 31.7, MCHC 32.7, Plt Count 196, MPV 9.2, Immature Gran % (Auto) 0.400, Neut % (Auto) 85.8 H, Lymph % (Auto) 5.8 L, [place] % (Auto) 5.1, Eos % (Auto) 2.4, Baso % (Auto) 0.5, Absolute Neuts (auto) 6.9, Nucleated RBC % 0 Rhythm: EKG: ECHO: Stress Test: Cardiac Cath: PCI: CT Surgery: Holter monitor: EPS: PPM: CXR: Chest CT Scan: Radiography Diagnostic Testing: Radiology Impression Echocardiogram 03/24/24 10:46 Interpretation Summary Normal LV size. The left ventricular ejection fraction is 50 %. Stage 1 diastolic dysfunction. Pulmonary artery systolic pressure is 46 mmHg. Mild pulmonary hypertension. Apical sparing pattern noted for myocardial perfusion strain. The global longitudinal strain is severely abnormal. Ordering Physician: Yong Olivo Performed By: Brian Darnell RCS Physical Exam Const alert, oriented x3 and no apparent distress General Appearance: cooperative HEENT hearing grossly normal bilaterally Head and Scalp: atraumatic Eyes EOMs intact bilaterally Neck General: normal visual inspection Chest inspection of chest normal and palpation of chest normal Resp normal respiratory effort Auscultation: clear to auscultation bilaterally Cardio regular rate, regular rhythm, S1 normal heart sound and S2 normal heart sound Jugular Venous Distention: JVD Rhythm: abnormal rhythm irregularly irregular GI normal to inspection, nondistended, normoactive bowel sounds Extremity normal capillary refill and no pedal edema Peripheral Pulses: Yes pulses 2+ throughout and femoral pulses present Skin no rashes or lesions noted Neuro oriented x3 and CN's II-XII intact bilaterally Psych Appearance: grossly normal and appropriate Assessment & Plan Assessment/Plan (1) Atrial flutter with rapid ventricular response: PLAN: Patient presents with atrial flutter with a rapid ventricular response rate. He has been started on intravenous diltiazem and amiodarone for better rate control. His echocardiogram demonstrated borderline ejection fraction. He has had a Watchman device. He was given 2 doses of anticoagulation. I would recommend that we consider emergency DC cardioversion as he is getting hypotensive and tachycardic despite maximal medical therapy. Will discuss this with his and obtain consent for DC cardioversion. (2) Presence of stent in coronary artery: PLAN: Does have a history of coronary artery disease status post angioplasty and stenting. His troponin however remains normal and I would not recommend we make any changes. (3) Essential hypertension: PLAN: His blood pressure appears to be under decent control and no new recommendations to be made with regard to the above. His echocardiogram demonstrated apical sparing pattern and emboli cannot be completely excluded. Further testing for this can be performed on an outpatient basis. Thank you for allowing me to participate in the care of your patient. Please don't hesitate to call if any issues arise.
[2024-03-25 08:38] LABS: Anion Gap 8 (5-15); BUN 7 mg/dL (7-18); BUN/Creat Ratio 7.4 RATIO (10-20); Calcium,Total 9.4 mg/dL (8.5-10.1); Chloride 102 mmol/L (98-107); Creatinine, Serum 0.94 mg/dL (0.70-1.30); EST Glomerular Filtration Rate 83 mL/min (>60); Est Glom Filt Rate - Afr Amer 101 mL/min (>60); Estimated Creatinine Clearance 79.55 ml/min; Glucose 275 mg/dL (74-106); Magnesium 1.9 mg/dL (1.6-2.6); Potassium 3.3 mmol/L (3.5-5.1); Sodium Level 135 mmol/L (136-145)
--- NOTE | 2024-03-25 08:40 | EKG12_ITS ---
Test Reason : Blood Pressure : / mmHG Vent. Rate : 151 BPM Atrial Rate : 151 BPM P-R Int : 112 ms QRS Dur : 080 ms QT Int : 288 ms P-R-T Axes : 245 045 224 degrees QTc Int : 456 ms Critical Test Result: High HR ATRIAL FLUTTER WITH 2:[address] abnormality, possible inferolateral subendocardial injury Abnormal ECG Confirmed by JAYY SIMMS, ALONZO ([id number]), editorial assistant MITCHELL BANSAL ([id number]) on 03/26/2024 7:56:10 AM Referred By: Confirmed By:ALONZO HOPE MD
[2024-03-25] MEDS: APIXABAN 5 MG TABLET PO (08:50)
[2024-03-25] MEDS: Metoprolol Tartrate 50 MG Tablet PO (08:50)
--- NOTE | 2024-03-25 09:22 | CASEMGMT ---
Social Work- Pt has directives naming Aviva, , as primary agent and sons Radames II and Agnieszka as alternate agents on file. YENNI Etienne
[2024-03-25] MEDS: Ipratropium/Albuterol Sulfate 3 ML AMPUL.NEB INHALATION ×2 (09:30→13:21)
[2024-03-25] MEDS: Potassium Chloride Oral Tablet 20 MEQ 40 MEQ PO (09:49)
--- NOTE | 2024-03-25 10:01 | EKG12_ITS ---
Test Reason : rhytm change Blood Pressure : / mmHG Vent. Rate : 052 BPM Atrial Rate : 052 BPM P-R Int : 158 ms QRS Dur : 088 ms QT Int : 432 ms P-R-T Axes : 067 050 087 degrees QTc Int : 401 ms Sinus bradycardia Otherwise normal ECG When compared with ECG of 25-MAR-2024 08:56, MANUAL COMPARISON REQUIRED, DATA IS UNCONFIRMED Confirmed by Osmany Lott ([id number]), legal editor RENÉ SANDOVAL [id number]) on 03/30/2024 2:02:29 PM Referred By: Confirmed By:Osmany Lott
[2024-03-25 11:11] LABS: Potassium 3.3 mmol/L (3.5-5.1)
[2024-03-25 12:29] LABS: Bedside Glucose 226 mg/dL (74-106)
[2024-03-25] MEDS: Pantoprazole Sodium 40 MG Tablet PO (12:36)
[2024-03-25] MEDS: metFORMIN HCl 1,000 MG Tablet 1000 MG PO ×2 (12:36→16:55)
[2024-03-25] MEDS: Cholecalciferol (VIT D3) 25 MCG TABLET (1,000 UNITS) PO (12:36)
[2024-03-25] MEDS: traMADol 50 MG Tablet PO (12:36)
[2024-03-25] MEDS: Ferrous Gluconate 324 MG Tablet PO ×2 (12:37→16:55)
[2024-03-25] MEDS: Aspirin E.C. 81 MG Tablet PO (12:37)
[2024-03-25] MEDS: Smz/Tmp Ds Tablet 1 TABLET PO ×2 (12:37→16:55)
[2024-03-25] MEDS: guaiFENesin/D-Methorphan TAB.SR.12H 2 TABLET PO (12:37)
[2024-03-25] MEDS: Tamsulosin HCl 0.4 MG Capsule PO (12:37)
[2024-03-25] MEDS: Furosemide 20 MG Tablet PO (12:37)
[2024-03-25] MEDS: Nystatin Powder 15gm Bottle 1 APPLIC TOPICAL (12:37)
[2024-03-25] MEDS: Sertraline 50 MG Tablet PO (12:41)
[2024-03-25] MEDS: Ascorbic Acid 500 MG Tablet PO (12:41)
[2024-03-25] MEDS: Acetaminophen 500 MG Tablet 1000 MG PO (12:41)
[2024-03-25 14:08] LABS: Bedside Glucose 234 mg/dL (74-106)
--- NOTE | 2024-03-25 16:03 | DS.PCM_ITS ---
Providers Date of Admission: 03/24/24 Primary Care Physician: Dr. Leonel Orr MD Consultations 03/24/24 10:46 Consult: Cardiology Routine Consulting Provider: Gustavo Llamas Reason for Consult: afib EMERGENT Consult: No MD Notified: Yes Date Notified: 03/24/24 Time Notified: 10:16 Method of Notification: ED Physician Initiated Reason For Visit: ATRIAL FLUTTER Diagnosis Discharge Diagnosis (1) Atrial flutter with rapid ventricular response: Status: Acute Code(s): I48.92 - Unspecified atrial flutter Plan: Patient was refractory to the diltiazem and has subsequently been ordered amiodarone bolus and drip. Also restarted on metoprolol but at increased dose of 50 mg twice a day (previously had been on 12.5 twice daily) Cardiology recommending anticoagulation. Patient received a dose of apixaban. TSH within normal limits Patient converted this morning. Currently on metoprolol titrate 50 mg twice daily. Plan Recent pneumonia: Will continue with the Bactrim until completion. Patient seems to be doing well from that perspective. Chronic conditions * COPD with chronic hypoxic respiratory failure 2-3L NC with allergic rhinitis: Patient is being managed on scheduled bronchodilator, IV Solu-Medrol, Mucinex, incentive spirometry and Pep. On Daliresp continued from home medication. * CAD: Status post PCI RCA 2017, most recent cardiology visit noted 11/27/23, continue aspirin, statin, valsartan, not on beta-jd therapy potentially secondary to underlying COPD. * Chronic anemia/iron deficiency anemia: * Dementia, unclear type with unclear behavioral disturbance history: Continue memantine and donepezil regimen * Chronic Kidney Disease Stage II per GFR trending: Admission BUN/Cr 13/1.28, GFR 59 although primarily from review is consistent with stage II, baseline renal function 0.9-1.2, repeat BMP in AM. 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 A1c ordered for tomorrow AM. Accu-Chek before meals and at bedtime with Humalog sliding scale coverage and hypoglycemia protocol. * Hypertension: Continue home regimen including valsartan, torsemide, nifedipine, amlodipine, PRN hydralazine. * Multiple other comorbidities include dyslipidemia, BPH, GERD, obstructive sleep apnea on BiPAP, psoriasis: Home medications reconciliation done * Hyperlipidemia: continue patient on statin therapy. VTE prophylaxis with enoxaparin CODE STATUS: Addressed with the patient and his . Patient is to be DNR Comfort Care arrest no intubation. Medications at Discharge Home Medications albuterol sulfate 90 mcg/actuation aerosol inhaler 2 puff inhalation Q4H PRN PRN Shortness Of Breath 06/24/15 atorvastatin 40 mg tablet 40 mg PO QHS Cholesterol 06/24/15 metformin 1,000 mg tablet 1,000 mg PO BIDCM Diabetes 06/24/15 omega-3 fatty acids 1,000 mg capsule (Fish Oil Concentrate) 1,000 mg PO BID Heart health 04/14/18 roflumilast 500 mcg tablet (Daliresp) 500 mcg PO QPM COPD 04/14/18 tamsulosin 0.4 mg capsule 0.4 mg PO DAILY Prostate 04/14/18 albuterol sulfate 2.5 mg/3 mL (0.083 %) solution for nebulization 2.5 mg inhalation 4X/DAY PRN Sob &/Or Wheezing 10/15/18 torsemide 10 mg tablet 5 mg PO DAILY diuretic 10/15/18 magnesium oxide 400 mg PO QHS supplement 10/25/20 sertraline 50 mg tablet 50 mg PO DAILY mental health 08/01/21 ascorbic acid (vitamin C) 500 mg tablet 500 mg PO BID vitamin #60 tabs 11/27/21 clotrimazole 1 % topical cream 1 applic topical BID PRN feet 11/27/21 pantoprazole 40 mg tablet,delayed release (Protonix) 40 mg PO DAILY reflux #30 tabs 11/27/21 nifedipine 90 mg tablet,extended release 90 mg PO DAILY blood pressure 03/15/22 tramadol 50 mg tablet 50 mg PO BID Pain 03/15/22 acetaminophen 650 mg tablet,extended release 1,300 mg PO Q12H pain 05/08/22 gabapentin 300 mg capsule 300 mg PO TID pain 05/08/22 dextromethorphan-guaifenesin 30 mg-600 mg tablet extended hr (Mucinex DM) 2 tab PO BID secretions 7 days #28 tabs 07/27/22 donepezil 5 mg tablet 5 mg PO QHS dementia 11/27/22 aspirin 81 mg tablet,delayed release (Adult Low Dose Aspirin) 81 mg PO DAILY heart health 05/29/23 budesonide 160 mcg-glycopyr 9 mcg-formot 4.8 mcg/actuation HFA inhaler (Breztri Aerosphere) 2 inh inhalation BID breathing 05/29/23 mirtazapine 15 mg tablet 30 mg PO QHS SLEEP 05/29/23 cholecalciferol (vitamin D3) 25 mcg (1,000 unit) capsule (Vitamin D3) 25 mcg PO DAILY vitamin 07/08/23 montelukast 10 mg tablet 10 mg PO QHS allergies 07/08/23 ferrous gluconate 324 mg (37.5 mg iron) tablet 324 mg PO BID supplement 11/27/23 memantine 5 mg tablet 10 mg PO QPM dementia 11/27/23 sulfamethoxazole 800 mg-trimethoprim 160 mg tablet (Bactrim DS) 1 tab PO BID #6 tabs 03/23/24 amiodarone 200 mg tablet 200 mg PO DAILY #30 tabs 03/25/24 metoprolol tartrate 50 mg tablet 50 mg PO BID #60 tabs 03/25/24 Hospital Course Operations None Procedures 2-D Echocardiogram Summary of Care Provided Minutes Spent on Discharge: 36 Hospital Course: Patient just discharged with pneumonia and came back with A-fib with RVR. The A-fib was refractory to numerous rounds of medications including IV diltiazem drip with boluses, amiodarone bolus and drips. But this morning, patient had a brief pause and then converted back to sinus rhythm. Patient completed his Amio drip and will be on amiodarone 200 mg daily in addition to metoprolol 50 mg twice daily, which is an increase from the 12.5 twice daily that he was on previously. Patient has a history of a Watchman device and I discussed with Dr. Llamas, of cardiology, who recommends continuing to hold anticoagulation. Patient improved much faster than initially anticipated. Weight / BMI Weight Weight: 98.8 kg Body Mass Index (BMI) 34.1 ABG / Lab / Microbiology Data 03/25/24 06:03 03/25/24 10:45 Laboratory: Laboratory Results - last 24 hr 03/24/24 16:46: POC Glucose 309 H 03/24/24 19:55: POC Glucose 262 H 03/25/24 06:03: WBC 8.1, RBC 3.19 L, Hgb 10.1 L, Hct 30.9 L, MCV 96.9 H, MCH 31.7, MCHC 32.7, RDW Std Deviation 45.2 H, RDW Coeff of Anthony 12.8, Plt Count 196, MPV 9.2, Immature Gran % (Auto) 0.400, Neut % (Auto) 85.8 H, Lymph % (Auto) 5.8 L, Sawyer % (Auto) 5.1, Eos % (Auto) 2.4, Baso % (Auto) 0.5, Absolute Neuts (auto) 6.9, Absolute Lymphs (auto) 0.47 L, Nucleated RBC % 0, Sodium 135 L, Potassium 3.3 L, Chloride 102, Carbon Dioxide 25.0, Anion Gap 8, BUN 7, Creatinine 0.94, Estim Creat Clear Calc 79.55, Est GFR (MDRD) Af Amer 101, Est GFR (MDRD) Non-Af 83, BUN/Creatinine Ratio 7.4 L, Glucose 275 H, Calcium 9.4, Magnesium 1.9 03/25/24 06:05: POC Glucose 268 H 03/25/24 10:45: Potassium 3.3 L 03/25/24 12:12: POC Glucose 226 H 03/25/24 13:44: POC Glucose 234 H D/C Instructions Discharge Diet: 2000 Calorie Control Diet Meaningful Use Info Meaningful Use Meaningful Use Diagnoses (Choose all that apply): None applicable Ischemic Stroke Statin Dosing Therapy Reference: STATIN DOSE THERAPY REFERENCE: * Patients > 75 years receive moderate or high dose statin therapy. * Patients 75 years or YOUNGER should receive HIGH intensity statin dose unless contraindicated. You will be required to document reason for non-treatment if statin daily dose does not meet guidelines. HIGH DOSE STATIN THERAPY DAILY Atorvastatin > than or = to 40 mg Rosuvastatin > than or = to 20 mg Amlodipine + Atorvastatin > than or = to 2.5/40 mg Ezetimibe + Simvastatin 10/80 mg Simvastatin 80mg Discharge Plan Admission Admit Date/Time: 03/24/24 10:06 Primary Reason for Your Visit: Atrial fibrillation Attending Provider: Yong Olivo Primary Care Provider: Leonel Orr Consulting Providers: Gustavo Llamas Discharge Orders/Prescriptions Prescriptions: New metoprolol tartrate 50 mg Tablet 50 mg PO BID Qty: 60 0RF amiodarone 200 mg tablet 200 mg PO DAILY Qty: 30 0RF Continued Daliresp 500 mcg tablet 500 mcg PO QPM Rx Instructions: Takes in the PM omega-3 fatty acids [Fish Oil Concentrate] 1,000 mg capsule 1,000 mg PO BID tamsulosin 0.4 mg capsule 0.4 mg PO DAILY torsemide 10 mg tablet 5 mg PO DAILY albuterol sulfate 2.5 mg /3 mL (0.083 %) solution for nebulization 2.5 mg INHALATION 4X/DAY PRN (Reason: Sob &/Or Wheezing) magnesium oxide 400 mg magnesium tablet 400 mg PO QHS acetaminophen 650 mg tablet extended release 1,300 mg PO Q12H gabapentin 300 mg capsule 300 mg PO TID sertraline 50 mg tablet 50 mg PO DAILY donepezil 5 mg tablet 5 mg PO QHS memantine 5 mg tablet 10 mg PO QPM aspirin [Adult Low Dose Aspirin] 81 mg tablet,delayed release (DR/EC) 81 mg PO DAILY Breztri Aerosphere 160-9-4.8 mcg/actuation HFA aerosol inhaler 2 inh inhalation BID atorvastatin 40 MG tablet 40 mg PO QHS Patient Comments: CHOLESTEROL metformin 1,000 MG tablet 1,000 mg PO BIDCM Patient Comments: DIABETES albuterol sulfate 1 PUFF inhaler 2 puff INHALATION Q4H PRN PRN (Reason: Shortness Of Breath) Patient Comments: BREATHING clotrimazole 1 % Cream 1 applic TOPICAL BID PRN (Reason: feet) pantoprazole [Protonix] 40 mg tablet,delayed release (DR/EC) 40 mg PO DAILY Qty: 30 2RF ascorbic acid (vitamin C) 500 mg tablet 500 mg PO BID Qty: 60 0RF nifedipine 90 mg Tablet Extended Release 90 mg PO DAILY tramadol 50 mg Tablet 50 mg PO BID Mucinex DM 30-600 mg Tablet Extended Release 12 Hr 2 tab PO BID 7 Days Qty: 28 0RF mirtazapine 15 mg tablet 30 mg PO QHS cholecalciferol (vitamin D3) [Vitamin D3] 25 mcg (1,000 unit) capsule 25 mcg PO DAILY montelukast 10 mg tablet 10 mg PO QHS ferrous gluconate 324 mg (37.5 mg iron) tablet 324 mg PO BID sulfamethoxazole-trimethoprim [Bactrim DS] 800-160 mg tablet 1 tab PO BID Qty: 6 0RF Discontinued valsartan 320 MG tablet 320 mg PO DAILY Patient Comments: BLOOD PRESSURE metoprolol tartrate 25 mg tablet 12.5 mg PO BID amlodipine 5 mg tablet 5 mg PO DAILY Qty: 90 3RF Referrals / Follow Up: [facility] [Provider Group] - Within 1 Month Leonel Orr MD [Primary Care Provider] - Within 2 Weeks Disposition Disposition (needs filled in before D/C Order can be placed): Home, Self Care Charges/Coding Visit Charges Inpatient E&M: 68196 Disch Hosp >30min
--- NOTE | 2024-03-25 16:20 | CHAPLAIN ---
Type of Pastoral Visit _x__ Initial Visit ___ Follow-up Visit ___ On-call Visit ___ General Patient Visit ___ Spiritual Assessment ___ Family Conference ___ Bereavement ___ Rapid Response ___ Code Blue ___ Other (describe below) Pastoral Care Referral From _x__ Patient ___ Family ___ Nurse ___ Physician ___ Upset Operator ___ Blasting Cap Assembler ___ Other (describe below) Sacrament/Intervention _x__ Active listening ___ Anointing ___ Jehovah'S Witness ___ Bereavement ___ Communion _x__ Aracelis exploration ___ ___ Life review _x__ Prayer ___ Reconciliation ___ Sacrament of Sick ___ Supportive presence ___ Wedding ___ Other (describe below) Pastoral Comments patient is hopeful to be going home; pt acknowledges his responsibility on his past health choices and that now he has quit smoking and drinking with the direct help of God through surrender/prayer; pt states that he has help at home and has no other concerns at this time; pt welcomes presence and prayer for support
--- NOTE | 2024-03-25 16:30 | CASEMGMT ---
TORRIE MILLIGAN Chart review: Patient was admitted 03/20-03/23/24 for [place] pneumonia, failed outpatient ATB. See assessment from 03/20/24. Patient returned [facility] with family support, [facility], and maintaining on home oxygen. Patient returned 03/24/24 to [facility] ED for increased SOB and admitted for A-flutter, HR in the 150s and started on cardizem gtt. Patient spontaneously converted to sinus rhythm on his own and discharge order placed. TORRIE MILLIGAN called to discuss needs at discharge and readmission. states patient was taking medications as prescribed. still to schedule follow-up appt. TORRIE MILLIGAN had setup [facility] and will be able to see the patient Friday. TORRIE MILLIGAN updated of resumption of care with start of care Friday. states that will be fine as her grandson will be staying with them over the weekend to help with care. states she will bring oxygen tank from home. had no further questions or concerns. TORRIE MILLIGAN updated discharge plan.
[2024-03-25 17:18] LABS: Bedside Glucose 269 mg/dL (74-106)
--- NOTE | 2024-03-26 14:30 | CASEMGMT ---
Addendum entered by Kwadwo Sanford 03/26/24 14:38: Pt calls back and states that [facility] will be in to the pt home within an hour for an evaluation and that they are able to manage things from here. Pt thanks this RN CM and denies further questions or concerns at this time. Original Note: Pt states that the pt is not doing good. Pt oxygen is currently maxed out at 5L and the pt is saturating at 85%. When the pt gets up to ambulate, the pt states that his HR elevates greatly. Pt is A&Ox3 and is not cyanotic per the . This RN CM advised the pt to bring the pt into the hospital or call 911. However, the pt states that the pt is DNR and is adamantly refusing to come into the hospital or even an urgent care. Pt states that the pt is alert and able to make his own decisions and is refusing to call 911. Pt states that she was about to call [facility] for further guidance. Pt states that her sister is there and has been an RN for over 20 years. Pt states that he has been taking all of his new medications including his new prescriptions. Pt inquires about potential hospice since the pt is refusing acute care. [facility] Telephone number given to the pt at this time. Pt given this RN CM # to call back after she calls hospice. Pt notified that we can try to set up hospice for the pt if they are unable to. Awaiting return call vs will call the back in time.
== END 2024-03-25 18:20 | disposition home or self-care (01) | DRG 308 ==
LOC: ED 10:03 → PCU 10:08
PROVIDERS: Internal Medicine Cardiovascular Disease; Emergency Provider Emergency Medicine; PCP Family Medicine
DX: I48.92 Unspecified atrial flutter (principal); J18.9 Pneumonia, unspecified organism; J96.11 Chronic respiratory failure with hypoxia; F03.918 Unspecified dementia, unspecified severity, with other behavioral disturbance; E11.22 Type 2 diabetes mellitus with diabetic chronic kidney disease; D50.9 Iron deficiency anemia, unspecified; E11.40 Type 2 diabetes mellitus with diabetic neuropathy, unspecified; J44.9 Chronic obstructive pulmonary disease, unspecified; I12.9 Hypertensive chronic kidney disease with stage 1 through stage 4 chronic kidney disease, or unspecified chronic kidney disease; I48.91 Unspecified atrial fibrillation; E11.65 Type 2 diabetes mellitus with hyperglycemia; E87.6 Hypokalemia; K21.9 Gastro-esophageal reflux disease without esophagitis; G47.33 Obstructive sleep apnea (adult) (pediatric); J30.9 Allergic rhinitis, unspecified; L40.9 Psoriasis, unspecified; E78.5 Hyperlipidemia, unspecified; I25.10 Atherosclerotic heart disease of native coronary artery without angina pectoris; N18.2 Chronic kidney disease, stage 2 (mild); Z79.84 Long term (current) use of oral hypoglycemic drugs; Z82.3 Family history of stroke; Z87.891 Personal history of nicotine dependence; Z86.16 Personal history of COVID-19; Z95.5 Presence of coronary angioplasty implant and graft; Z79.891 Long term (current) use of opiate analgesic
CPT/HCPCS: 36415; 71045; 80048; 82962; 83605; 83735; 84132; 84443; 84484; 85025; 85610; 85730; 90662; 93005; 93306; 94640; 97162; 97166; 99285; J7040; J7050; Q9957; A4216; J0153